=== PATIENT | male | born 1950 | race Caucasian/White ===

== ENCOUNTER → 2017-02-01 | Outpatient (CLI) | payer MEDICARE ==
[~2017-02-01] MED LIST: DOBUTamine DRIP for NUC MED 500 MG in DEXTROSE/WATER 1 250ML.BAG IV ONE
--- NOTE | 2017-02-01 14:22 | ECHOS ---
DATE OF SERVICE: 02/01/2017 AGE: 66Y SEX: M HT: 70" WT: 375 lbs. Protocol Rick: Others: Dobutamine Stress Echo Stage: 4 Dur. of Exercise: 11:45 *Heart Rate Blood Pressure *Rest: 61 Rest: 189/46 * *Max. Achieved: 127 Maximum BP: 172/55 85% PMHR: 129 100% PMHR: 152 *METS: - INDICATIONS: Shortness of breath. MEDICATIONS: Simvastatin, BP pills, aspirin, omeprazole. Patient was exercised for a total period of 12 minutes. A dobutamine echocardiographic study was performed. Patient was given dobutamine infusion according to the standard protocol. Peak heart rate of 127 was achieved. Maximum blood pressure of 172/55 mmHg of mercury was noted. Resting EKG shows sinus rhythm with normal KS interval and QRS duration and normal ST-T waves. No ST-segment depression suggestive of ischemia was noted. Patient did not complain of any chest pain during the test. The baseline echocardiographic images reveal a normal left ventricular chamber size with normal left ventricular systolic function. At the peak dose of dobutamine infusion, normal increase in the wall thickness and contractility is noted. FINAL IMPRESSION: 1. This dobutamine stress echocardiographic study is negative for stress-induced ischemia. 2. EKG portion of the stress is not suggestive of ischemia.
== END ==
LOC: RADNMMAIN 09:49
PROVIDERS: ATTEND Family Medicine
DX: R06.02 Shortness of breath (principal)
CPT/HCPCS: 93017; C8928; J1250; Q9957; 93350

== ENCOUNTER 2017-05-15 02:57 | Inpatient (IN) | payer MEDICARE ==
[2017-05-15] MEDS ORDERED: SODIUM CHLORIDE 0.9% 1,000 ML IV STA ×2 (03:31)
[2017-05-15] MEDS ORDERED: ONDANSETRON 4 MG/2 ML VIAL IVP STA (03:31)
[2017-05-15] MEDS ORDERED: MORPHINE SULFATE 4 MG/ML SYRINGE IV STA (03:31)
--- NOTE | 2017-05-15 03:45 | ED ---
Abdominal Pain HPI - General Chief Complaint: Abdominal Pain Stated Complaint: VOMITING Time Seen by Provider: 05/15/17 03:22 Source: patient, family Mode of arrival: ambulatory Limitations: no limitations - History of Present Illness Initial Comments: Complaining about nausea and vomiting, he threw up about 4 times in last 24 hours complaining about abdominal pain and no generalized weakness, sleepy, he is a diabetic and he hasn't checked his sugar for the last 4 days he said he been feeling too tired and sleepy. His complaining about abdominal pain abdominal pain is on the right upper quadrant area and right flank area though he has a history of gallbladder surgery. He is complaining about palpitations and no chest pain no shortness of breath no pleuritic chest pain as per minute, no frequency urgency dysuria no symptoms of TIA. - Related Data Home Medications Medication Instructions Recorded Confirmed Albuterol Inhaler [Ventolin Hfa 1 - 2 puff INHALATION Q6HR PRN 05/15/17 05/15/17 Inhaler] Atenolol [Tenormin] 50 mg PO DAILY 05/15/17 05/15/17 Furosemide [Lasix] 40 mg PO BID 05/15/17 05/15/17 Insulin Aspart [NovoLOG] 45 unit SQ TID 05/15/17 05/15/17 Insulin Glargine [Lantus] 95 unit SQ HS 05/15/17 05/15/17 Losartan [Cozaar] 100 mg PO DAILY 05/15/17 05/15/17 Naproxen [Naprosyn] 500 mg PO Q12HR 05/15/17 05/15/17 Omeprazole [PriLOSEC] 20 mg PO AC-BRKFST 05/15/17 05/15/17 Simvastatin [Zocor] 20 mg PO HS 05/15/17 05/15/17 cloNIDine HCL [Catapres] 0.2 mg PO BID 05/15/17 05/15/17 hydrALAZINE HCL [Apresoline] 100 mg PO TID 05/15/17 05/15/17 metFORMIN HCL [Glucophage] 850 mg PO TID 05/15/17 05/15/17 Allergies Allergy/AdvReac Type Severity Reaction Status Date / Time No Known Allergies Allergy Verified 05/15/17 03:04 Review of Systems ROS Statement: Those systems with pertinent positive or pertinent negative responses have been documented in the HPI. ROS Other: All systems not noted in ROS Statement are negative. Past Medical History Past Medical History: Asthma, Diabetes Mellitus, Hypertension History of Any Multi-Drug Resistant Organisms: None Reported Past Surgical History: Cholecystectomy Past Psychological History: No Psychological Hx Reported Smoking Status: Never smoker Past Alcohol Use History: Rare Past Drug Use History: None Reported General Exam - General Exam Comments Initial Comments: General: The patient is awake number his GCS is 15 but he looks tired and lethargic Skin: Skin is warm and dry and no rashes or lesions are noted. Eye: Pupils are equal, round and reactive to light, extra-ocular movements are intact; there is normal conjunctiva bilaterally. Ears, nose, mouth and throat: There are moist mucous membranes and no oral lesions. Neck: The neck is supple, there is no tenderness or JVD. Cardiovascular: There is a regular rate and rhythm but noticed tachycardia Respiratory: To auscultation bilateral, no wheezing , noticed decreased breath sounds bilaterally Gastrointestinal: Soft, non-distended, except his right upper quadrant area and the right flank area are tender Back: There is no tenderness to palpation in the midline. There is no obvious deformity. Musculoskeletal: Normal ROM, no tenderness, There is no pedal edema. There is no calf tenderness or swelling. No cords were appreciated. Neurological: CN II-XII intact, Cranial nerves III through XII are intact. There are no obvious motor or sensory deficits. Coordination appears grossly intact. Speech is normal. Psychiatric: Cooperative, appropriate mood & affect, normal judgment. Limitations: no limitations Course Vital Signs 05/15/17 03:00 Temperature 97 F L Pulse Rate 115 H Respiratory 20 Rate Blood Pressure 142/67 O2 Sat by Pulse 97 Oximetry EKG is a sinus tachycardia ventricular rate is 114 WA interval is 158 QRS duration is 98 QT/QTc is 328/465 review of this EKG shows sinus tachycardia, there is a hint of ST elevation in lead 3 but I have seen the somewhat elevation back in old EKG that was done on March [address] depression in aVL no ST elevation or any significant ST depression noticed in the other leads Medical Decision Making - Lab Data Result diagrams: 05/15/17 03:45 05/15/17 04:21 Lab Results 05/15/17 05/15/17 05/15/17 Range/Units 03:45 03:45 03:45 WBC 15.3 H (3.8-10.6) k/uL RBC 5.22 (4.30-5.90) m/uL Hgb 16.3 (13.0-17.5) gm/dL Hct 50.4 (39.0-53.0) % MCV 96.7 (80.0-100.0) fL MCH 31.3 (25.0-35.0) pg MCHC 32.3 (31.0-37.0) g/dL RDW 13.6 (11.5-15.5) % Plt Count 247 (150-450) k/uL Neutrophils % 84 % Lymphocytes % 9 % Monocytes % 6 % Eosinophils % 0 % Basophils % 0 % Neutrophils # 12.9 H (1.3-7.7) k/uL Lymphocytes # 1.3 (1.0-4.8) k/uL Monocytes # 0.9 (0-1.0) k/uL Eosinophils # 0.0 (0-0.7) k/uL Basophils # 0.0 (0-0.2) k/uL Sodium 134 L (137-145) mmol/L Potassium 6.6 H* (3.5-5.1) mmol/L Chloride 92 L (98-107) mmol/L Carbon Dioxide 17 L (22-30) mmol/L Anion Gap 25 mmol/L BUN 67 H (9-20) mg/dL Creatinine 1.80 H (0.66-1.25) mg/dL Est GFR (MDRD) Af Amer 46 (>60 ml/min/1.73 sqM) Est GFR (MDRD) Non-Af 38 (>60 ml/min/1.73 sqM) Glucose 1077 H* (74-99) mg/dL POC Glucose (mg/dL) (75-99) mg/dL POC Glu Business Investor ID Calcium 11.3 H (8.4-10.2) mg/dL Total Bilirubin 1.1 (0.2-1.3) mg/dL AST 30 (17-59) U/L ALT 57 (21-72) U/L Alkaline Phosphatase 159 H (38-126) U/L Troponin I 0.038 H* (0.000-0.034) ng/mL Total Protein 8.0 (6.3-8.2) g/dL Albumin 4.9 (3.5-5.0) g/dL Amylase 51 (30-110) U/L Lipase 199 (23-300) U/L 05/15/17 05/15/17 05/15/17 Range/Units 03:50 03:51 04:21 WBC (3.8-10.6) k/uL RBC (4.30-5.90) m/uL Hgb (13.0-17.5) gm/dL Hct (39.0-53.0) % MCV (80.0-100.0) fL MCH (25.0-35.0) pg MCHC (31.0-37.0) g/dL RDW (11.5-15.5) % Plt Count (150-450) k/uL Neutrophils % % Lymphocytes % % Monocytes % % Eosinophils % % Basophils % % Neutrophils # (1.3-7.7) k/uL Lymphocytes # (1.0-4.8) k/uL Monocytes # (0-1.0) k/uL Eosinophils # (0-0.7) k/uL Basophils # (0-0.2) k/uL Sodium (137-145) mmol/L Potassium 6.1 H (3.5-5.1) mmol/L Chloride (98-107) mmol/L Carbon Dioxide (22-30) mmol/L Anion Gap mmol/L BUN (9-20) mg/dL Creatinine (0.66-1.25) mg/dL Est GFR (MDRD) Af Amer (>60 ml/min/1.73 sqM) Est GFR (MDRD) Non-Af (>60 ml/min/1.73 sqM) Glucose (74-99) mg/dL POC Glucose (mg/dL) >600 H >600 H (75-99) mg/dL POC Glu Business Investor Gael Mccoy David Calcium (8.4-10.2) mg/dL Total Bilirubin (0.2-1.3) mg/dL AST (17-59) U/L ALT (21-72) U/L Alkaline Phosphatase (38-126) U/L Troponin I (0.000-0.034) ng/mL Total Protein (6.3-8.2) g/dL Albumin (3.5-5.0) g/dL Amylase (30-110) U/L Lipase (23-300) U/L Critical Care Time Total Critical Care Time: 45 Critical Care Time: Patients his sugar is greater than 1000, his white count is 15.3 F shift potassium is 6.6 CO2 is 17 this point KUB and chest x-ray looks unremarkable patient has no significant ketoacidosis he also has elevated troponin and repeat potassium was 6.1) patient also has a IV and IVwall insulin bolus and had the infusion started that's why he did not crack the potassium IV insulin were polished the potassium intracellular considering tachycardia as well as a leukocytosis also suspicious of sepsis blood cultures and urine cultures were done patient be started on empiric Biotics patient had dull 2 L of IV bolus and then will follow the DKA protocol. Speak with the Dr. Wilson and now since he TO ICU AND HE'LL BE ADMITTED UNDER shantanu Castellon Dr. is covering Dr. Cramer Disposition Clinical Impression: Tachycardia, Abdominal pain, Nausea and vomiting, Hyperkalemia, Elevated troponin, Sepsis Disposition: ADMITTED IP TO THIS HOSP Condition: Fair Referrals: Dwayne Castellano MD [Primary Care Provider] - 1-2 days
[2017-05-15 03:54] LABS: Basophils % (A) 0 %; CHCM 32.2; Eosinophils % (A) 0 %; HCT 50.4 % (39.0-53.0); HDW 2.63; HGB 16.3 gm/dL (13.0-17.5); Luc # (Auto) 0.16; Luc % (Auto) 1; Lymphocytes # (A) 1.3 k/uL (1.0-4.8); Lymphocytes % (A) 9 %; MCH 31.3 pg (25.0-35.0); MCHC 32.3 g/dL (31.0-37.0); MCV 96.7 fL (80.0-100.0); Mean Platelet Volume 9.3; Monocytes # (A) 0.9 k/uL (0-1.0); Monocytes % (A) 6 %; Neutrophils # (A) 12.9 k/uL (1.3-7.7); Neutrophils % (A) 84 %; RBC 5.22 m/uL (4.30-5.90); RDW 13.6 % (11.5-15.5); WBC 15.3 k/uL (3.8-10.6); WBC (Perox) 14.53
[2017-05-15 03:55] LABS: Glucose,Whole Blood >600 mg/dL (75-99)
[2017-05-15 03:55] LABS: Glucose,Whole Blood >600 mg/dL (75-99)
[2017-05-15 04:03] LABS: Calcium 11.3 mg/dL (8.4-10.2); Total Bilirubin 1.1 mg/dL (0.2-1.3)
[2017-05-15 04:14] LABS: Potassium 6.6 mmol/L (3.5-5.1)
[2017-05-15] MEDS ORDERED: SODIUM CHLORIDE 0.9% 1,000 ML IV ONE (04:30)
[2017-05-15] MEDS ORDERED: INSULIN REGULAR BOLUS (FROM DRIP BAG) IV ONE (04:33)
--- NOTE | 2017-05-15 04:38 | XR ---
EXAM: KUB, 3 views INDICATION: Abdominal pain. COMPARISON: None. FINDINGS: Single frontal view of the abdomen demonstrates a nonobstructive, nonspecific bowel gas pattern. Cholecystectomy clips are present. No evidence of organomegaly, abnormal calcifications or obvious soft tissue masses. The osseous structures are intact. IMPRESSION: Unremarkable KUB.
--- NOTE | 2017-05-15 04:39 | XR ---
EXAM: Chest PA and lateral views INDICATION: Pain. COMPARISON: None. FINDINGS: PA and lateral views of the chest are obtained. The cardiomediastinal silhouette is within normal limits. Lungs are clear. No pleural effusions. Bony elements are within normal limits. IMPRESSION: No acute cardiopulmonary disease.
[2017-05-15] MEDS ORDERED: cefTRIAXone 2,000 MG in SODIUM CHLORIDE 0.9% 100 ML IVPB STA (04:56)
[2017-05-15 05:00] LABS: Appearance,Urine Clear (Clear); Bilirubin,Urine Negative (Negative); Glucose,Urine (UA) 4+ (Negative); Ketones,Urine 1+ (Negative); Leukocyte Esterase,Urine Negative (Negative); Nitrite,Urine Negative (Negative); Protein,Urine Trace (Negative); UA Billing (MACRO vs. MICRO) CHEM; Urobilinogen,Urine <2.0 mg/dL (<2.0)
[2017-05-15] MEDS: INSULIN REGULAR 100 UNIT in SODIUM CHLORIDE 0.9% 100 ML IV SCH ×3 (05:01→15:53)
[2017-05-15] MEDS ORDERED: ACETAMINOPHEN TAB 325 MG TAB PO PRN ×2 (05:17→07:16)
[2017-05-15] MEDS ORDERED: NALOXONE 0.4 MG/ML 1 ML VIAL IV PRN (05:17)
[2017-05-15] MEDS ORDERED: MORPHINE SULFATE 4 MG/ML SYRINGE IV PRN (05:17)
[2017-05-15] MEDS ORDERED: ALBUTEROL NEBULIZED 2.5 MG/3 ML INHALATION PRN (05:23)
[2017-05-15] MEDS ORDERED: D5-0.45% NACL WITH KCL 20MEQ/L 1,000 ML IV SCH (05:30)
[2017-05-15] MEDS ORDERED: INSULIN REGULAR 100 UNIT in SODIUM CHLORIDE 0.9% 100 ML IV SCH (05:30)
[2017-05-15 06:38] LABS: Glucose,Whole Blood >600 mg/dL (75-99)
--- NOTE | 2017-05-15 06:49 | XR ---
EXAM: Single view of the chest INDICATION: Central line placement COMPARISON: 05/15/2017 at 0414 hrs. FINDINGS: Single frontal view demonstrates a stable cardiomediastinal silhouette. Right IJ central line is in place with tip projecting over the right atrium. No pneumothorax. Otherwise, stable appearance of the chest. Old, healed right-sided rib fractures are noted. The visualized osseous structures are otherwise unremarkable. IMPRESSION: 1. Interval placement of a right IJ central venous catheter with tip projecting over the right atrium. No pneumothorax. 2. Otherwise, stable appearance of the chest
[2017-05-15] MEDS: SODIUM CHLORIDE 0.9% 1,000 ML IV SCH ×4 (07:07→20:52)
[2017-05-15] MEDS ORDERED: HEPARIN SODIUM,PORCINE 5,000 UNIT/ML 1 ML VIAL IV ONE (07:15)
[2017-05-15] MEDS ORDERED: NITROGLYCERIN SL TABS 0.4 MG TAB SUBLINGUAL PRN (07:16)
[2017-05-15] MEDS ORDERED: MORPHINE SULFATE 2 MG/ML SYRINGE IVP PRN (07:16)
[2017-05-15 07:35] LABS: Glucose,Whole Blood >600 mg/dL (75-99)
[2017-05-15] MEDS: HEPARIN SODIUM,PORCINE/D5W PMX 25,000 UNIT in DEXTROSE/WATER 1 500ML.BAG IV SCH (08:03)
[2017-05-15 08:32] LABS: Glucose,Whole Blood 540 mg/dL (75-99)
[2017-05-15 09:35] LABS: Glucose,Whole Blood 552 mg/dL (75-99)
--- NOTE | 2017-05-15 10:32 | CT ---
EXAMINATION TYPE: CT abdomen pelvis wo con DATE OF EXAM: 05/15/2017 COMPARISON: NONE HISTORY: generalized pain, DKA CT DLP: 3238.2 mGycm Examination of the solid and hollow viscera is limited given the lack of contrast. FINDINGS: LUNG BASES: No evidence for nodule. No evidence for infiltrate. LIVER/GB: Cholecystectomy clips are in place. No space-occupying hepatic lesion. PANCREAS: No pancreatic mass identified. No inflammatory process seen. SPLEEN: No evidence for splenomegaly. No intrasplenic lesions seen. ADRENALS: No adrenal nodules identified. No evidence for thickening. KIDNEYS: No evidence for renal mass. No nephrolithiasis. No hydronephrosis. BOWEL: Appendix has a normal appearance. No evidence of bowel obstruction. No inflammatory process. S cattered sigmoid diverticulosis without diverticulitis. Lymph nodes: No evidence for adenopathy greater than 1 cm. Abdominal aorta: Atheromatous changes seen. No evidence for aneurysm. Genital organs: No significant abnormality. Other: Small fat-containing umbilical hernia. Multilevel degenerative disc disease. IMPRESSION: 1. NO ACUTE INTRA-ABDOMINAL PROCESS IDENTIFIED AT THIS TIME.
[2017-05-15 10:42] LABS: Phosphorous 4.3 mg/dL (2.5-4.5); Potassium 4.9 mmol/L (3.5-5.1)
[2017-05-15 10:45] LABS: Glucose,Whole Blood 504 mg/dL (75-99)
[2017-05-15] MEDS: ESOMEPRAZOLE 20 MG in SODIUM CHLORIDE 0.9% 50 ML IVPB SCH (10:54)
[2017-05-15] MEDS: LOSARTAN 50 MG TAB PO SCH (10:57)
[2017-05-15] MEDS: hydrALAZINE HCL 50 MG TAB PO SCH ×4 (10:57→22:53)
[2017-05-15] MEDS: cloNIDine HCL 0.2 MG TAB PO SCH ×4 (10:58→23:16)
[2017-05-15] MEDS: FUROSEMIDE 40 MG TAB PO SCH ×2 (10:58→22:53)
[2017-05-15] MEDS: ATENOLOL 50 MG TAB PO SCH (10:58)
[2017-05-15 11:04] LABS: Creatine Kinase MB 2.9 ng/mL (0.0-2.4); Troponin I 0.051 ng/mL (0.000-0.034)
--- NOTE | 2017-05-15 11:19 | P.CON ---
Consult Note - . Consult date: 05/15/17 Assessment/Plan:: Live* Brigette Moreno [address], [place] [address] Abdominal Pain Patient Name: Maulik Ascencio Date of : 1950 Patient Status: Inpatient Attending Provider: Dwayne Castellano Date: 05/15/17 9-30 a.m. Abdominal Pain HPI, critical care consultation note - General Chief Complaint: Abdominal Pain started 2-3 days ago Stated Complaint: VOMITING Time Seen by Provider: 05/15/17 03:22 Source: patient, family, ER chart - History of Present Illness Initial Comments: Patient was doing fairly well until about 3 days ago started having some nausea and not feeling well has been having intermittent abdominal pain as well as he was not eating much he decided not to take his insulin due to persistent problem with nausea and throwing up and not feeling well intermittent abdominal pain and came into the hospital for further evaluation and intervention and treatment Complaining about nausea and vomiting, he threw up about 4 times in last 24 hours complaining about abdominal pain and no generalized weakness, sleepy, he is a diabetic and he hasn't checked his sugar for the last 4 days he said he been feeling too tired and sleepy. His complaining about abdominal pain abdominal pain is on the right upper quadrant area and right flank area though he has a history of gallbladder surgery. He is complaining about palpitations and no chest pain no shortness of breath no pleuritic chest pain as per minute, no frequency urgency dysuria no symptoms of TIA. He denies any nausea vomiting or diarrhea denies any gastroenteritis like symptoms denies similar episode in the past - Related Data Home Medications Medication Instructions Recorded Confirmed Albuterol Inhaler [Ventolin Hfa 1 - 2 puff INHALATION Q6HR PRN 05/15/17 05/15/17 Inhaler] Atenolol [Tenormin] 50 mg PO DAILY 05/15/17 05/15/17 Furosemide [Lasix] 40 mg PO BID 05/15/17 05/15/17 Insulin Aspart [NovoLOG] 45 unit SQ TID 05/15/17 05/15/17 Insulin Glargine [Lantus] 95 unit SQ HS 05/15/17 05/15/17 Losartan [Cozaar] 100 mg PO DAILY 05/15/17 05/15/17 Naproxen [Naprosyn] 500 mg PO Q12HR 05/15/17 05/15/17 Omeprazole [PriLOSEC] 20 mg PO AC-BRKFST 05/15/17 05/15/17 Simvastatin [Zocor] 20 mg PO HS 05/15/17 05/15/17 cloNIDine HCL [Catapres] 0.2 mg PO BID 05/15/17 05/15/17 hydrALAZINE HCL [Apresoline] 100 mg PO TID 05/15/17 05/15/17 metFORMIN HCL [Glucophage] 850 mg PO TID 05/15/17 05/15/17 Allergies Allergy/AdvReac Type Severity Reaction Status Date / Time No Known Allergies Allergy Verified 05/15/17 03:04 Review of Systems ROS Statement: Those systems with pertinent positive or pertinent negative responses have been documented in the HPI. ROS Other: All systems not noted in ROS Statement are negative. Past Medical History Past Medical History: Asthma, Diabetes Mellitus, Hypertension History of Any Multi-Drug Resistant Organisms: None Reported Past Surgical History: Cholecystectomy Past Psychological History: No Psychological Hx Reported Smoking Status: Never smoker Past Alcohol Use History: Rare Past Drug Use History: None Reported General Exam - General Exam Comments Initial Comments: General: The patient is awake number his GCS is 15 but he looks tired and lethargic Skin: Skin is warm and dry and no rashes or lesions are noted. Eye: Pupils are equal, round and reactive to light, extra-ocular movements are intact; there is normal conjunctiva bilaterally. Ears, nose, mouth and throat: There are moist mucous membranes and no oral lesions. Neck: The neck is supple, there is no tenderness or JVD, has a central line/ triple-lumen catheter into the right IJ. Cardiovascular: There is a regular rate and rhythm but noticed tachycardia Respiratory: To auscultation bilateral, no wheezing , noticed decreased breath sounds bilaterally Gastrointestinal: Soft, overall distended related to truncal obesity, tenderness noted previously by ER physician are not appreciated in this exam Back: There is no tenderness to palpation in the midline. There is no obvious deformity. Musculoskeletal: Normal ROM, no tenderness, There is no pedal edema. There is no calf tenderness or swelling. No cords were appreciated. Neurological: CN II-XII intact, Cranial nerves III through XII are intact. There are no obvious motor or sensory deficits. Coordination appears grossly intact. Speech is normal. Psychiatric: Cooperative, appropriate mood & affect, normal judgment. Limitations: no limitations Course Vital Signs 05/15/17 03:00 Temperature 97 F L Pulse Rate 115 H Respiratory 20 Rate Blood Pressure 142/67 O2 Sat by Pulse 97 Oximetry EKG is a sinus tachycardia ventricular rate is 114 NM interval is 158 QRS duration is 98 QT/QTc is 328/465 review of this EKG shows sinus tachycardia, there is a hint of ST elevation in lead 3 but I have seen the somewhat elevation back in old EKG that was done on March [address] depression in aVL no ST elevation or any significant ST depression noticed in the other leads Medical Decision Making - Lab Data Result diagrams: 05/15/17 03:45 05/15/17 04:21 Lab Results 05/15/17 05/15/17 05/15/17 Range/Units 03:45 03:45 03:45 WBC 15.3 H (3.8-10.6) k/uL RBC 5.22 (4.30-5.90) m/uL Hgb 16.3 (13.0-17.5) gm/dL Hct 50.4 (39.0-53.0) % MCV 96.7 (80.0-100.0) fL MCH 31.3 (25.0-35.0) pg MCHC 32.3 (31.0-37.0) g/dL RDW 13.6 (11.5-15.5) % Plt Count 247 (150-450) k/uL Neutrophils % 84 % Lymphocytes % 9 % Monocytes % 6 % Eosinophils % 0 % Basophils % 0 % Neutrophils # 12.9 H (1.3-7.7) k/uL Lymphocytes # 1.3 (1.0-4.8) k/uL Monocytes # 0.9 (0-1.0) k/uL Eosinophils # 0.0 (0-0.7) k/uL Basophils # 0.0 (0-0.2) k/uL Sodium 134 L (137-145) mmol/L Potassium 6.6 H* (3.5-5.1) mmol/L Chloride 92 L (98-107) mmol/L Carbon Dioxide 17 L (22-30) mmol/L Anion Gap 25 mmol/L BUN 67 H (9-20) mg/dL Creatinine 1.80 H (0.66-1.25) mg/dL Est GFR (MDRD) Af Amer 46 (>60 ml/min/1.73 sqM) Est GFR (MDRD) Non-Af 38 (>60 ml/min/1.73 sqM) Glucose 1077 H* (74-99) mg/dL POC Glucose (mg/dL) (75-99) mg/dL POC Glu Second Facing Baster ID Calcium 11.3 H (8.4-10.2) mg/dL Total Bilirubin 1.1 (0.2-1.3) mg/dL AST 30 (17-59) U/L ALT 57 (21-72) U/L Alkaline Phosphatase 159 H (38-126) U/L Troponin I 0.038 H* (0.000-0.034) ng/mL Total Protein 8.0 (6.3-8.2) g/dL Albumin 4.9 (3.5-5.0) g/dL Amylase 51 (30-110) U/L Lipase 199 (23-300) U/L 05/15/17 05/15/17 05/15/17 Range/Units 03:50 03:51 04:21 WBC (3.8-10.6) k/uL RBC (4.30-5.90) m/uL Hgb (13.0-17.5) gm/dL Hct (39.0-53.0) % MCV (80.0-100.0) fL MCH (25.0-35.0) pg MCHC (31.0-37.0) g/dL RDW (11.5-15.5) % Plt Count (150-450) k/uL Neutrophils % % Lymphocytes % % Monocytes % % Eosinophils % % Basophils % % Neutrophils # (1.3-7.7) k/uL Lymphocytes # (1.0-4.8) k/uL Monocytes # (0-1.0) k/uL Eosinophils # (0-0.7) k/uL Basophils # (0-0.2) k/uL Sodium (137-145) mmol/L Potassium 6.1 H (3.5-5.1) mmol/L Chloride (98-107) mmol/L Carbon Dioxide (22-30) mmol/L Anion Gap mmol/L BUN (9-20) mg/dL Creatinine (0.66-1.25) mg/dL Est GFR (MDRD) Af Amer (>60 ml/min/1.73 sqM) Est GFR (MDRD) Non-Af (>60 ml/min/1.73 sqM) Glucose (74-99) mg/dL POC Glucose (mg/dL) >600 H >600 H (75-99) mg/dL POC Glu Second Facing Baster Gael Mccoy David Calcium (8.4-10.2) mg/dL Total Bilirubin (0.2-1.3) mg/dL AST (17-59) U/L ALT (21-72) U/L Alkaline Phosphatase (38-126) U/L Troponin I (0.000-0.034) ng/mL Total Protein (6.3-8.2) g/dL Albumin (3.5-5.0) g/dL Amylase (30-110) U/L Lipase (23-300) U/L Critical Care Time Total Critical Care Time: 40 Patients his sugar is greater than 1000, his white count is 15.3 F shift potassium is 6.6 CO2 is 17 this point KUB and chest x-ray looks unremarkable patient has no significant ketoacidosis he also has elevated troponin and repeat potassium was 6.1) patient also has a IV and IVwall insulin bolus and had the infusion started that's why he did not crack the potassium IV insulin were polished the potassium intracellular considering tachycardia as well as a leukocytosis also suspicious of sepsis blood cultures and urine cultures were done patient be started on empiric Biotics patient had dull 2 L of IV bolus and then will follow the DKA protocol. Impression/assessment and plan #1 severe diabetic ketoacidosis #2 electrolyte imbalance with hyponatremia hyperkalemia and hypercalcemia #3 severe profound metabolic acidosis related to above #4 early SIRS versus sepsis source not clear #5 abdominal pain and discomfort discomfort likely related to diabetic ketoacidosis #6 acute renal failure, stage III #7 elevated troponin, non-ST segment elevated SC is less likely but however the rise may likely related to acute renal failure Patient is being aggressively fluid resuscitated with 200 mL an hour normal saline has been on 20 units of insulin drip as well his latest blood test has been drawn and results are pending last check sugar was still more than 550, will do lemus culture including urine and blood, chest x-ray done late last night as well as earlier this morning reviewed along with KUB and abdominal CT scan, patient has received a dose of IV Rocephin we'll monitor and observe repeat labs tomorrow will hold on starting any antibiotics and her until more data is available, follow-up and repeat laboratory data, patient to be kept on DVT and peptic ulcer disease prophylaxis patient is being admitted into the ICU will follow closely.
[2017-05-15 11:38] LABS: Glucose,Whole Blood 397 mg/dL (75-99)
[2017-05-15 12:52] LABS: Glucose,Whole Blood 252 mg/dL (75-99)
[2017-05-15] MEDS: D5-0.45% NACL WITH KCL 20MEQ/L 1,000 ML IV SCH ×3 (13:47→19:49)
[2017-05-15 14:04] LABS: Glucose,Whole Blood 249 mg/dL (75-99)
--- NOTE | 2017-05-15 14:49 | HP ---
Maulik Ascencio is a 66-year-old male who presented to the ED at [facility] with nausea, vomiting. He subsequently had diarrhea as well. He stopped taking his diabetic medications about two days prior to coming in. When he came into the ED he was found to have an elevated blood sugar of over 1000. He subsequently is being admitted for further evaluation and management. PAST MEDICAL HISTORY: Positive for hypertension, history of diabetes mellitus type 2, history of asthma, history of cholecystectomy. Family history is noncontributory. SOCIAL HISTORY: Patient is a nonsmoker. Does not drink alcohol excessively. He has no known drug allergies. His medications prior to admission include Metformin, hydralazine, clonidine, simvastatin, omeprazole, albuterol inhaler, Tenormin, Lasix, NovoLog, Lantus, Cozaar and Naprosyn. Review of systems is positive for obesity. On physical examination, blood pressure 156/60, respiratory rate 18, pulse rate of 110, temperature 97.4 degrees Fahrenheit. O2 sat on 2-L nasal cannula is 97% . HEENT reveals pupils that are equal. Mucous membranes are dry. Mallampati is III. Cardiovascular system reveals an S1, S2. No S3, no S4, no murmurs. Abdomen is soft. There is trace to 1+ pedal edema. White count is 15.3, hemoglobin 16.3, sodium 134, potassium 6.6, chloride 92, bicarb 17, BUN 67, creatinine 1.8, glucose 1077. Lactic acid was 3.6. Calcium 11.3, AST 30, ALT 57, alk phos 159, troponin 0.038. IMPRESSION: 1. Uncontrolled diabetes with hyperosmolar state. 2. Diabetes with ketoacidosis. 3. Abdominal pain possibly secondary to acute gastroenteritis. 4. Acute renal failure. Continue IV fluids, insulin. The patient has received 1 dose of Rocephin. Will further decide if he needs any further antibiotics as he is symptomatically doing with fluid resuscitation and insulin. Depending on how he does further changes to his care will be made. WILVERD
[2017-05-15 15:03] LABS: Glucose,Whole Blood 213 mg/dL (75-99)
[2017-05-15 15:15] LABS: Phosphorous 4.1 mg/dL (2.5-4.5); Potassium 4.8 mmol/L (3.5-5.1)
[2017-05-15 15:41] LABS: Creatine Kinase MB 2.9 ng/mL (0.0-2.4); Troponin I 0.084 ng/mL (0.000-0.034)
[2017-05-15 15:53] LABS: Glucose,Whole Blood 133 mg/dL (75-99)
[2017-05-15 17:01] LABS: Glucose,Whole Blood 118 mg/dL (75-99)
[2017-05-15 18:16] LABS: Glucose,Whole Blood 181 mg/dL (75-99)
[2017-05-15 19:25] LABS: Potassium 5.7 mmol/L (3.5-5.1)
[2017-05-15 20:13] LABS: Glucose,Whole Blood 226 mg/dL (75-99)
[2017-05-15 21:11] LABS: Glucose,Whole Blood 266 mg/dL (75-99)
[2017-05-15 22:07] LABS: Glucose,Whole Blood 256 mg/dL (75-99)
[2017-05-15] MEDS: INSULIN GLARGINE 100 UNIT/ML 10 ML VIAL SQ SCH (22:53)
[2017-05-16 00:56] LABS: Potassium 5.5 mmol/L (3.5-5.1)
[2017-05-16] MEDS ORDERED: HEPARIN SODIUM,PORCINE 5,000 UNIT/ML 1 ML VIAL IV PRN (01:01)
[2017-05-16] MEDS ORDERED: INSULIN NPH 300 UNIT/3 ML VIAL SQ ONE (02:16)
[2017-05-16] MEDS: D5-0.45% NACL WITH KCL 20MEQ/L 1,000 ML IV SCH (02:22)
[2017-05-16 02:23] LABS: Glucose,Whole Blood 384 mg/dL (75-99)
[2017-05-16 04:56] LABS: Glucose,Whole Blood 429 mg/dL (75-99)
[2017-05-16 06:01] LABS: Glucose,Whole Blood 431 mg/dL (75-99)
[2017-05-16] MEDS: INSULIN LISPRO (humaLOG) 300 UNIT/3 ML VIAL SQ SCH ×7 (06:24→20:45)
[2017-05-16 06:30] LABS: Glucose,Whole Blood 439 mg/dL (75-99)
[2017-05-16 06:59] LABS: Basophils % (A) 0 %; CH 30.7; CHCM 32.3; Eosinophils # (A) 0.1 k/uL (0-0.7); Eosinophils % (A) 1 %; HCT 40.1 % (39.0-53.0); HDW 2.54; Luc # (Auto) 0.19; Luc % (Auto) 1; Lymphocytes # (A) 1.7 k/uL (1.0-4.8); Lymphocytes % (A) 12 %; MCH 30.9 pg (25.0-35.0); MCHC 32.3 g/dL (31.0-37.0); MCV 95.7 fL (80.0-100.0); Mean Platelet Volume 9.6; Monocytes % (A) 7 %; Neutrophils # (A) 11.9 k/uL (1.3-7.7); Neutrophils % (A) 80 %; RBC 4.19 m/uL (4.30-5.90); RDW 12.9 % (11.5-15.5); WBC 14.9 k/uL (3.8-10.6); WBC (Perox) 14.91
[2017-05-16 07:17] LABS: HGB 12.9 gm/dL (13.0-17.5)
--- NOTE | 2017-05-16 07:29 | XR ---
EXAMINATION TYPE: XR chest 1V portable DATE OF EXAM: 05/16/2017 HISTORY: pneumonia. REFERENCE: Previous study dated 05/15/2017. FINDINGS: The patient's right internal jugular catheter remains in place, unchanged in appearance. The heart is enlarged. There is mild vascular congestion without afsaneh edema. No definite pleural flu id is seen. IMPRESSION: 1. CARDIOMEGALY. 2. VASCULAR CONGESTION.
[2017-05-16 07:49] LABS: Calcium 9.3 mg/dL (8.4-10.2); Phosphorous 3.9 mg/dL (2.5-4.5); Potassium 5.6 mmol/L (3.5-5.1); Total Bilirubin 0.6 mg/dL (0.2-1.3); Total Protein 5.8 g/dL (6.3-8.2)
[2017-05-16] MEDS: HEPARIN SODIUM,PORCINE/D5W PMX 25,000 UNIT in DEXTROSE/WATER 1 500ML.BAG IV SCH ×2 (09:12→18:12)
[2017-05-16 10:00] LABS: Hemoglobin A1C 11.2 % (4.2-6.1)
--- NOTE | 2017-05-16 11:00 | P.CRDCN ---
History of Present Illness Consult date: 05/16/17 Requesting physician: Dwayne Castellano Reason for Consult (text): Abnormal troponins Chief complaint: Nausea vomiting and weakness History of present illness: This is a pleasant 66-year-old gentleman with history of diabetes, hypertension, asthma, morbid obesity, who presents to the hospital with symptoms of abdominal discomfort, vomiting and weakness for the past 3 days or so. Patient states he has not been checking his blood sugars at home because he has been feeling so unwell. He denies any chest discomfort, he does get occasional exertional shortness of breath. She did have a dobutamine echocardiographic study performed in January of this year which was negative for any stress-induced ischemia. EKG on admission showed a sinus tachycardia with nonspecific ST-T wave changes. KUB x-ray unremarkable. Chest x-ray did not reveal any acute cardiopulmonary process. CT of the abdomen and pelvis did not reveal any acute intra-abdominal process. I pressure on admission 142/60 with a heart rate of 118, 97% on room air. White blood cell count on admission 15.3 , 14.9 this morning. Hemoglobin on admission 16.3, 12.9 this morning. Admission labs, Glucose 1077, potassium 6.6, BUN 67, creatinine 1.8, troponins 0.038, 0.051, 0.084, this morning's labs, potassium 5.5, BUN 78, creatinine 2.6. At the time of my examination this morning, patient denies any chest discomfort, nausea has resolved, mild abdominal discomfort. Past Medical History Past Medical History: Asthma, Diabetes Mellitus, Hypertension History of Any Multi-Drug Resistant Organisms: None Reported Past Surgical History: Cholecystectomy Past Psychological History: No Psychological Hx Reported Smoking Status: Never smoker Past Alcohol Use History: Rare Past Drug Use History: None Reported Medications and Allergies Home Medications Medication Instructions Recorded Confirmed Type Albuterol Sulfate [Proventil Hfa] 2 puff INHALATION RT-QID PRN 05/15/17 History Atenolol [Tenormin] 50 mg PO DAILY 05/15/17 05/15/17 History Furosemide [Lasix] 40 mg PO BID 05/15/17 05/15/17 History Insulin Aspart [NovoLOG] 45 unit SQ BID 05/15/17 05/15/17 History Insulin Glargine [Lantus] 95 unit SQ HS 05/15/17 05/15/17 History Losartan Potassium 100 mg PO DAILY 05/15/17 05/15/17 History Naproxen [Naprosyn] 500 mg PO Q12HR 05/15/17 05/15/17 History Omeprazole [PriLOSEC] 20 mg PO AC-BRKFST 05/15/17 05/15/17 History Simvastatin [Zocor] 20 mg PO HS 05/15/17 05/15/17 History cloNIDine HCL [Catapres] 0.2 mg PO BID 05/15/17 05/15/17 History hydrALAZINE HCL [Apresoline] 100 mg PO TID 05/15/17 05/15/17 History metFORMIN HCL [Glucophage] 850 mg PO TID 05/15/17 05/15/17 History Allergies Allergy/AdvReac Type Severity Reaction Status Date / Time No Known Allergies Allergy Verified 05/15/17 10:54 Physical Exam Vitals: Vital Signs Temp Pulse Pulse Resp BP BP Pulse Ox 05/16/17 08:00 97.8 F 55 L 16 124/66 96 05/16/17 04:00 96.7 F L 62 16 108/49 95 05/16/17 00:00 97.2 F L 61 16 153/69 97 05/15/17 20:00 96.8 F L 63 16 121/64 97 05/15/17 16:00 97.7 F 67 16 100/53 96 05/15/17 11:35 97.4 F L 05/15/17 11:06 110 H 18 156/68 97 Intake and Output 05/15/17 05/16/17 05/16/17 22:59 06:59 14:59 Intake Total 2282.363 632.203 111.818 Output Total 200 600 Balance 2082.363 32.203 111.818 Intake: IV 1476 480 0.9% NS 160 D5 0.45 ns W/ 20 MEQ K @ 1200 150 mL/hr Heparin Sodium,Porcine/ 240 320 D5w Pmx 25,000 unit In Dextrose/Water 1 500ml. bag @ 5.95 UNITS/KG/HR 19 .97 mls/hr IV .Q24H [facility] Rx#:[id number] Insulin Regular 100 unit 36 In Sodium Chloride 0.9% 100 ml @ 0.1 UNITS/KG/HR 16.95 mls/hr IV .Q5H58M [facility] Rx#:[id number] Intake, IV Titration 386.363 152.203 111.818 Amount Heparin Sodium,Porcine/ 235.979 152.203 111.818 D5w Pmx 25,000 unit In Dextrose/Water 1 500ml. bag @ 5.95 UNITS/KG/HR 19 .97 mls/hr IV .Q24H [facility] Rx#:[id number] Insulin Regular 100 unit 150.384 In Sodium Chloride 0.9% 100 ml @ 0.1 UNITS/KG/HR 16.95 mls/hr IV .Q5H58M [facility] Rx#:[id number] Oral 420 Output: Urine 200 600 Other: Voiding Method Urinal Urinal Weight 160.3 kg Patient Weight 05/17/17 06:59 Weight 160.3 kg PHYSICAL EXAMINATION: HEENT: Head is atraumatic, normocephalic. Pupils equal, round. Neck is supple. There is no elevated jugular venous pressure. HEART EXAMINATION: Heart S1, S2 normal. No murmur or gallop heard. CHEST EXAMINATION: Lungs are clear to auscultation and precussion. No chest wall tenderness is noted on palpation or with deep breathing. ABDOMEN: Soft, obese, mild generalized tenderness . Bowel sounds are heard. No organomegaly noted. EXTREMITIES: 2+ peripheral pulses with trace evidence of peripheral edema and no calf tenderness noted. NEUROLOGIC patient is awake, alert and oriented -3. . Results 05/16/17 06:41 05/16/17 06:41 Cardiac Enzymes 05/15/17 05/15/17 05/16/17 Range/Units 09:14 14:46 06:41 AST 24 (17-59) U/L CK-MB (CK-2) 2.9 H* 2.9 H* (0.0-2.4) ng/mL Troponin I 0.051 H* 0.084 H* (0.000-0.034) ng/mL Coagulation 05/15/17 05/16/17 05/16/17 Range/Units 14:46 00:11 06:41 APTT 26.9 38.2 H 114.6 H* (22.0-30.0) sec Lipids 05/16/17 Range/Units 06:41 Triglycerides 141 (<150) mg/dL Cholesterol 144 (<200) mg/dL HDL Cholesterol 38 L (40-60) mg/dL CBC 05/16/17 Range/Units 06:41 WBC 14.9 H (3.8-10.6) k/uL RBC 4.19 L (4.30-5.90) m/uL Hgb 12.9 L D (13.0-17.5) gm/dL Hct 40.1 (39.0-53.0) % Plt Count 160 (150-450) k/uL Comprehensive Metabolic Panel 05/15/17 05/15/17 05/15/17 Range/Units 09:14 14:46 18:53 Sodium 144 146 H 140 (137-145) mmol/L Potassium 4.9 4.8 5.7 H (3.5-5.1) mmol/L Chloride 107 112 H 110 H (98-107) mmol/L Carbon Dioxide 19 L 20 L 21 L (22-30) mmol/L BUN 66 H 69 H (9-20) mg/dL Creatinine 1.69 H 2.08 H (0.66-1.25) mg/dL Glucose 585 H* 227 H (74-99) mg/dL Calcium (8.4-10.2) mg/dL AST (17-59) U/L ALT (21-72) U/L Alkaline Phosphatase (38-126) U/L Total Protein (6.3-8.2) g/dL Albumin (3.5-5.0) g/dL 05/16/17 05/16/17 Range/Units 00:11 06:41 Sodium 139 137 (137-145) mmol/L Potassium 5.5 H 5.6 H (3.5-5.1) mmol/L Chloride 106 105 (98-107) mmol/L Carbon Dioxide 22 22 (22-30) mmol/L BUN 78 H (9-20) mg/dL Creatinine 2.67 H (0.66-1.25) mg/dL Glucose 464 H* (74-99) mg/dL Calcium 9.3 (8.4-10.2) mg/dL AST 24 (17-59) U/L ALT 41 (21-72) U/L Alkaline Phosphatase 90 (38-126) U/L Total Protein 5.8 L (6.3-8.2) g/dL Albumin 3.1 L (3.5-5.0) g/dL Current Medications Generic Name Dose Route Start Last Admin Trade Name Freq PRN Reason Stop Dose Admin Acetaminophen 650 mg 05/15/17 05:17 Tylenol Tab PO Q4HR PRN Fever and/or Mild Pain Acetaminophen 650 mg 05/15/17 07:16 Tylenol Tab PO Q4HR PRN Mild Pain Albuterol Sulfate 2.5 mg 05/15/17 05:23 Ventolin Nebulized INHALATION Q6HR PRN Shortness Of Breath Atenolol 50 mg 05/15/17 09:00 05/15/17 10:58 Tenormin PO 50 mg DAILY SAM Administration Clonidine 0.2 mg 05/15/17 09:00 05/15/17 23:16 Catapres PO 0.2 mg BID SAM Administration Furosemide 40 mg 05/15/17 09:00 05/15/17 22:53 Lasix PO 40 mg BID SAM Administration Heparin Sodium (Porcine) 0 unit 05/16/17 01:01 05/16/17 01:09 Heparin IV 4,000 unit PER PROTOCOL PRN Administration Low PTT Protocol Hydralazine HCl 100 mg 05/15/17 09:00 05/15/17 22:53 Apresoline PO 100 mg TID [facility] Administration Esomeprazole Magnesium 20 mg/ 50 mls @ 100 mls/hr 05/15/17 09:00 05/15/17 10: 54 Sodium Chloride IVPB 100 mls/hr DAILY SAM Administration Potassium Chloride/Dextrose/Sod Cl 1,000 mls @ 50 mls/hr 05/15/17 06:00 05/16 02:22 D5%-1/2ns-Kcl 20 Meq/L Iv Solution IV 50 mls/hr .Q20H [facility] Administration Heparin Sodium/Dextrose 25,000 500 mls @ 19.97 mls/hr 05/15/17 07:30 09:12 unit/ IV Solution IV 9.95 units/kg/hr .Q24H [facility] 33.4 mls/hr Protocol Administration 5.95 UNITS/KG/HR Insulin Glargine 95 unit 05/15/17 21:00 05/15/17 22:53 Lantus SQ 95 unit HS [facility] Administration Insulin Human Lispro 17 unit 05/16/17 07:30 05/16/17 09:13 Humalog 0.1 unit/kg (17 unit) 17 unit SQ Administration AC-TID [facility] Insulin Human Lispro 0 unit 05/16/17 07:30 05/16/17 06:24 Humalog SQ 22 unit ACHS [facility] Administration Protocol Losartan Potassium 100 mg 05/15/17 09:00 05/15/17 10:57 Cozaar PO 100 mg DAILY [facility] Administration Morphine Sulfate 4 mg 05/15/17 05:17 Morphine Sulfate (Inj) IV Q2HR PRN Pain Scale 8 to 10 Morphine Sulfate 2 mg 05/15/17 07:16 Morphine Sulfate (Inj) IVP Q5M PRN Chest Pain Naloxone HCl 0.2 mg 05/15/17 05:17 Narcan IV Q2M PRN Opioid Reversal Nitroglycerin 0.4 mg 05/15/17 07:16 Nitrostat SUBLINGUAL Q5M PRN Chest Pain Intake and Output 05/15/17 05/16/17 05/16/17 22:59 06:59 14:59 Intake Total 2282.363 632.203 111.818 Output Total 200 600 Balance 2082.363 32.203 111.818 Intake: IV 1476 480 0.9% NS 160 D5 0.45 ns W/ 20 MEQ K @ 1200 150 mL/hr Heparin Sodium,Porcine/ 240 320 D5w Pmx 25,000 unit In Dextrose/Water 1 500ml. bag @ 5.95 UNITS/KG/HR 19 .97 mls/hr IV .Q24H [facility] Rx#:[id number] Insulin Regular 100 unit 36 In Sodium Chloride 0.9% 100 ml @ 0.1 UNITS/KG/HR 16.95 mls/hr IV .Q5H58M [facility] Rx#:[id number] Intake, IV Titration 386.363 152.203 111.818 Amount Heparin Sodium,Porcine/ 235.979 152.203 111.818 D5w Pmx 25,000 unit In Dextrose/Water 1 500ml. bag @ 5.95 UNITS/KG/HR 19 .97 mls/hr IV .Q24H [facility] Rx#:[id number] Insulin Regular 100 unit 150.384 In Sodium Chloride 0.9% 100 ml @ 0.1 UNITS/KG/HR 16.95 mls/hr IV .Q5H58M [facility] Rx#:[id number] Oral 420 Output: Urine 200 600 Other: Voiding Method Urinal Urinal Weight 160.3 kg Patient Weight 05/17/17 06:59 Weight 160.3 kg 05/16/17 06:41 05/16/17 06:41 EKG Interpretations (text) EKG shows a sinus tachycardia with nonspecific ST-T wave changes Assessment and Plan Plan: Assessment and plan #1 DKA #2 abdominal pain #3 acute renal failure #4 abnormal troponins, likely secondary to acute renal failure denies having any chest discomfort. EKG shows a sinus tachycardia with nonspecific ST-T wave changes # 5 hypertension #6 hyperlipidemia #7 obesity #8 hyperkalemia Plan We will obtain an echocardiogram with Doppler study. We will also request a d- dimer be performed. Patient's abnormality troponin is likely secondary to acute renal failure, he did recently have a dobutamine echocardiographic study performed in January which was negative for any reversible ischemia. Further recommendations to follow. DNP note has been reviewed, I agree with a documented findings and plan of care. Patient was seen and examined.
[2017-05-16 11:34] VITALS: BMI 47.9
[2017-05-16 12:05] LABS: Glucose,Whole Blood 345 mg/dL (75-99)
[2017-05-16] MEDS: ESOMEPRAZOLE 20 MG in SODIUM CHLORIDE 0.9% 50 ML IVPB SCH (12:22)
[2017-05-16] MEDS: ATENOLOL 50 MG TAB PO SCH (12:28)
[2017-05-16] MEDS: hydrALAZINE HCL 50 MG TAB PO SCH ×3 (12:28→22:59)
[2017-05-16] MEDS: FUROSEMIDE 40 MG TAB PO SCH ×2 (12:28→20:45)
[2017-05-16] MEDS: LOSARTAN 50 MG TAB PO SCH (12:28)
[2017-05-16] MEDS: cloNIDine HCL 0.2 MG TAB PO SCH ×2 (12:28→20:45)
--- NOTE | 2017-05-16 14:31 | ECHOF ---
Referral Reason:abn trop MEASUREMENTS -------- HEIGHT: 182.9 cm WEIGHT: 160.1 kg BP: 124/66 RVIDd: 3.6 cm (< 3.3) IVSd: 1.7 cm (0.6 - 1.1) LVIDd: 4.6 cm (3.9 - 5.3) LVPWd: 1.7 cm (0.6 - 1.1) IVSs: 2.2 cm LVIDs: 3.3 cm LVPWs: 2.1 cm LA Diam: 4.1 cm (2.7 - 3.8) LAESV Index (A-L): 31.74 ml/m Ao Diam: 4.0 cm (2.0 - 3.7) AV Cusp: 2.7 cm (1.5 - 2.6) MV EXCURSION: 13.275 mm (> 18.000) MV EF SLOPE: 55 mm/s (70 - 150) EPSS: 0.7 cm MV E Arnel: 0.57 m/s MV DecT: 333 ms MV A Arnel: 0.82 m/s MV E/A Ratio: 0.69 RAP: 15.00 mmHg RVSP: 43.21 mmHg FINDINGS -------- Sinus rhythm. This was a technically difficult study with suboptimal apical views. The left ventricular size is normal. There is severe concentric left ventricular hypertrophy. Overall left ventricular systolic function is normal with, an EF between 55 - 60 %. The right ventricle is mildly enlarged. LA is midly dilated 29-33ml/m2. The right atrium is normal in size. 1.5mg of Definity was utilized for enhancement of images The aortic valve is trileaflet and appears structurally normal. Mild mitral annular calcification present. Mild tricuspid regurgitation present. There is mild pulmonary hypertension. The right ventricular systolic pressure, as measured by Doppler, is 43.21mmHg. The pulmonic valve was not well visualized. The aortic root is dilated measuring 4.0cm. The inferior vena cava is dilated with no significant inspiratory collapse which is consistent estimated right atrial pressure of >15 mmHg. There is no pericardial effusion. CONCLUSIONS -------- 1. Sinus rhythm. 2. Mild mitral annular calcification present. 3. Mild tricuspid regurgitation present. 4. There is mild pulmonary hypertension. 5. The right ventricular systolic pressure, as measured by Doppler, is 43.21mmHg. 6. The pulmonic valve was not well visualized. 7. The aortic root is dilated measuring 4.0cm. 8. The inferior vena cava is dilated with no significant inspiratory collapse which is consistent estimated right atrial pressure of >15 mmHg. 9. There is no pericardial effusion. 10. This was a technically difficult study with suboptimal apical views. 11. The left ventricular size is normal. 12. There is severe concentric left ventricular hypertrophy. 13. Overall left ventricular systolic function is normal with, an EF between 55 - 60 %. 14. The right ventricle is mildly enlarged. 15. LA is midly dilated 29-33ml/m2. 16. 1.5mg of Definity was utilized for enhancement of images 17. The aortic valve is trileaflet and appears structurally normal. [employer] MANAGER: Yen Silver RDCS
[2017-05-16 16:46] LABS: Glucose,Whole Blood 188 mg/dL (75-99)
[2017-05-16 20:34] LABS: Glucose,Whole Blood 236 mg/dL (75-99)
[2017-05-16] MEDS: INSULIN GLARGINE 100 UNIT/ML 10 ML VIAL SQ SCH (20:45)
--- NOTE | 2017-05-16 21:55 | HP ---
This patient was admitted in my absence. He came in with a complaint of lower abdominal pain. Denied indigestion. It had been going on for several days. He presented with an elevated troponin. He has uncontrolled diabetes and obesity. The rest of his history and physical can be found in his original admission evaluation. IMPRESSION: 1. Abdominal tobi. 2. Indigestion. 3. Chest pain. 4. Rule out myocardial infarction. 5. Chronically uncontrolled diabetes mellitus. 6. Morbid obesity. PLAN: 1. Bed rest. 2. Serial EKGs and enzymes. 3. Cardiology consult. MELISSA
--- NOTE | 2017-05-16 22:14 | PN ---
DATE OF SERVICE: 05/16/2017 CHIEF COMPLAINT: Abdominal pain, chest pain and possible acute PR. HISTORY OF PRESENT ILLNESS: This gentleman is comfortable and he is awaiting his cardiology assessment. PHYSICAL EXAM: His vital signs are normal. The chest is clear. Cardiac exam is normal. The abdomen is protuberant and soft. No masses or tenderness. IMPRESSION: 1. Possible myocardial infarction. 2. Abdominal pain. 3. Uncontrolled diabetes mellitus. 4. Morbid obesity. PLAN: Await Cardiology's recommendations for further evaluation. MELISSA
[2017-05-17 05:52] LABS: Glucose,Whole Blood 183 mg/dL (75-99)
[2017-05-17] MEDS: INSULIN LISPRO (humaLOG) 300 UNIT/3 ML VIAL SQ SCH ×7 (07:13→21:18)
[2017-05-17] MEDS: cloNIDine HCL 0.2 MG TAB PO SCH ×2 (10:04→21:17)
[2017-05-17] MEDS: hydrALAZINE HCL 50 MG TAB PO SCH ×3 (10:04→23:04)
[2017-05-17] MEDS: ATENOLOL 50 MG TAB PO SCH (10:04)
[2017-05-17] MEDS: FUROSEMIDE 40 MG TAB PO SCH ×2 (10:04→21:17)
[2017-05-17] MEDS: LOSARTAN 50 MG TAB PO SCH (10:05)
[2017-05-17] MEDS: ESOMEPRAZOLE 20 MG in SODIUM CHLORIDE 0.9% 50 ML IVPB SCH (10:07)
[2017-05-17 12:31] LABS: Glucose,Whole Blood 272 mg/dL (75-99)
--- NOTE | 2017-05-17 14:53 | P.PN ---
Subjective This is a pleasant 66-year-old gentleman with history of diabetes, hypertension, asthma, morbid obesity, who presents to the hospital with symptoms of abdominal discomfort, vomiting and weakness for the past 3 days or so. Patient states he has not been checking his blood sugars at home because he has been feeling so unwell. He denies any chest discomfort, he does get occasional exertional shortness of breath. She did have a dobutamine echocardiographic study performed in January of this year which was negative for any stress-induced ischemia. EKG on admission showed a sinus tachycardia with nonspecific ST-T wave changes. KUB x-ray unremarkable. Chest x-ray did not reveal any acute cardiopulmonary process. CT of the abdomen and pelvis did not reveal any acute intra-abdominal process. I pressure on admission 142/60 with a heart rate of 118, 97% on room air. White blood cell count on admission 15.3 , 14.9 this morning. Hemoglobin on admission 16.3, 12.9 this morning. Admission labs, Glucose 1077, potassium 6.6, BUN 67, creatinine 1.8, troponins 0.038, 0.051, 0.084, this morning's labs, potassium 5.5, BUN 78, creatinine 2.6. 05/17/2017. Patient seen and examined this morning, feeling better overall, echocardiogram with Doppler study was performed which revealed an ejection fraction of 55-60%.blood sugars are still not under adequate control, creatinine today 2.6. Objective - Vital Signs Vital signs: Vital Signs Temp 97 F L 05/17/17 12:00 Pulse 48 L 05/17/17 12:00 Resp 16 05/17/17 12:00 BP 93/39 05/17/17 12:00 Pulse Ox 95 05/17/17 12:00 Intake & Output 05/16/17 05/17/17 05/17/17 18:59 06:59 18:59 Intake Total 640.301 40 490 Output Total 450 550 Balance 190.301 -510 490 Weight 160.3 kg 162 kg Intake: IV 40 0.9% NS 40 Intake, IV Titration 400.301 Amount Heparin Sodium,Porcine/ 400.301 D5w Pmx 25,000 unit In Dextrose/Water 1 500ml. bag @ 5.95 UNITS/KG/HR 19 .97 mls/hr IV .Q24H [facility] Rx#:[id number] Oral 240 490 Output: Urine 450 550 Other: Voiding Method Urinal # Voids 1 - Exam PHYSICAL EXAMINATION: HEENT: Head is atraumatic, normocephalic. Pupils equal, round. Neck is supple. There is no elevated jugular venous pressure. HEART EXAMINATION: Heart S1, S2 normal. No murmur or gallop heard. CHEST EXAMINATION: Lungs are clear to auscultation and precussion. No chest wall tenderness is noted on palpation or with deep breathing. ABDOMEN: Soft, obese, mild generalized tenderness . Bowel sounds are heard. No organomegaly noted. EXTREMITIES: 2+ peripheral pulses with trace evidence of peripheral edema and no calf tenderness noted. NEUROLOGIC patient is awake, alert and oriented -3. - Labs CBC & Chem 7: 05/16/17 06:41 05/16/17 06:41 Labs: Abnormal Lab Results - Last 24 Hours (Table) 05/16/17 05/16/17 05/16/17 Range/Units 14:56 16:43 20:32 APTT 83.8 H (22.0-30.0) sec POC Glucose (mg/dL) 188 H 236 H (75-99) mg/dL 05/16/17 05/17/17 05/17/17 Range/Units 22:15 05:50 06:08 APTT 65.5 H 64.1 H (22.0-30.0) sec POC Glucose (mg/dL) 183 H (75-99) mg/dL 05/17/17 Range/Units 12:14 APTT (22.0-30.0) sec POC Glucose (mg/dL) 272 H (75-99) mg/dL Microbiology - Last 24 Hours (Table) 05/15/17 09:14 Blood Culture - Preliminary Blood No Growth after 48 hours 05/15/17 14:46 Blood Culture - Preliminary Blood No Growth after 24 hours 05/15/17 04:33 Urine Culture - Final Urine,Clean Catch Assessment and Plan Plan: Assessment and plan #1 DKA #2 abdominal pain #3 acute renal failure #4 abnormal troponins, likely secondary to acute renal failure denies having any chest discomfort. EKG shows a sinus tachycardia with nonspecific ST-T wave changes # 5 hypertension #6 hyperlipidemia #7 obesity #8 hyperkalemia Plan echo with Doppler study revealed normal left ventricular systolic function.d- dimer negative. . Patient's abnormality troponin is likely secondary to acute renal failure, he did recently have a dobutamine echocardiographic study performed in January which was negative for any reversible ischemia. we will follow this patient with you now on an as-needed basis only, please don't hesitate to call with any questions. DNP note has been reviewed, I agree with a documented findings and plan of care. Patient was seen and examined.
[2017-05-17] MEDS ORDERED: MAG HYDROX/AL HYDROX/SIMETH 30 ML CUP PO PRN (16:21)
[2017-05-17 17:19] LABS: Glucose,Whole Blood 183 mg/dL (75-99)
[2017-05-17 20:56] LABS: Glucose,Whole Blood 163 mg/dL (75-99)
[2017-05-17] MEDS: INSULIN GLARGINE 100 UNIT/ML 10 ML VIAL SQ SCH (21:17)
[2017-05-18 06:00] LABS: Glucose,Whole Blood 199 mg/dL (75-99)
[2017-05-18] MEDS: PANTOPRAZOLE 40 MG TABLET PO SCH (06:54)
[2017-05-18] MEDS: INSULIN LISPRO (humaLOG) 300 UNIT/3 ML VIAL SQ SCH ×7 (06:54→21:34)
[2017-05-18 07:23] LABS: Basophils % (A) 0 %; CH 30.9; CHCM 33.7; Eosinophils # (A) 0.3 k/uL (0-0.7); Eosinophils % (A) 2 %; HDW 2.54; HGB 13.4 gm/dL (13.0-17.5); Luc # (Auto) 0.21; Luc % (Auto) 2; Lymphocytes # (A) 2.1 k/uL (1.0-4.8); Lymphocytes % (A) 16 %; MCH 30.9 pg (25.0-35.0); MCHC 33.4 g/dL (31.0-37.0); MCV 92.3 fL (80.0-100.0); Mean Platelet Volume 9.4; Monocytes # (A) 0.8 k/uL (0-1.0); Monocytes % (A) 6 %; Neutrophils # (A) 9.6 k/uL (1.3-7.7); Neutrophils % (A) 74 %; RBC 4.33 m/uL (4.30-5.90); RDW 13.2 % (11.5-15.5); WBC 12.9 k/uL (3.8-10.6)
[2017-05-18 07:43] LABS: Calcium 9.5 mg/dL (8.4-10.2); Potassium 4.3 mmol/L (3.5-5.1)
[2017-05-18] MEDS: cloNIDine HCL 0.2 MG TAB PO SCH ×2 (09:20→20:54)
[2017-05-18] MEDS: LOSARTAN 50 MG TAB PO SCH (09:20)
[2017-05-18] MEDS: FUROSEMIDE 40 MG TAB PO SCH ×2 (09:20→20:54)
[2017-05-18] MEDS: hydrALAZINE HCL 50 MG TAB PO SCH ×3 (09:20→20:54)
[2017-05-18] MEDS: ATENOLOL 50 MG TAB PO SCH (09:20)
[2017-05-18 11:49] LABS: Glucose,Whole Blood 380 mg/dL (75-99)
[2017-05-18 16:47] LABS: Glucose,Whole Blood 299 mg/dL (75-99)
[2017-05-18 21:21] LABS: Glucose,Whole Blood 206 mg/dL (75-99)
[2017-05-18] MEDS: INSULIN GLARGINE 100 UNIT/ML 10 ML VIAL SQ SCH (21:34)
[2017-05-19 05:56] LABS: Glucose,Whole Blood 268 mg/dL (75-99)
[2017-05-19] MEDS: PANTOPRAZOLE 40 MG TABLET PO SCH (07:03)
[2017-05-19] MEDS: INSULIN LISPRO (humaLOG) 300 UNIT/3 ML VIAL SQ SCH ×7 (07:21→22:37)
[2017-05-19] MEDS: ATENOLOL 50 MG TAB PO SCH (09:09)
[2017-05-19] MEDS: cloNIDine HCL 0.2 MG TAB PO SCH ×2 (09:09→22:44)
[2017-05-19] MEDS: FUROSEMIDE 40 MG TAB PO SCH ×2 (09:10→22:44)
[2017-05-19] MEDS: LOSARTAN 50 MG TAB PO SCH (09:10)
[2017-05-19] MEDS: hydrALAZINE HCL 50 MG TAB PO SCH ×3 (09:48→22:44)
[2017-05-19 11:35] LABS: Glucose,Whole Blood 229 mg/dL (75-99)
[2017-05-19 16:43] LABS: Glucose,Whole Blood 304 mg/dL (75-99)
[2017-05-19 20:53] LABS: Glucose,Whole Blood 312 mg/dL (75-99)
[2017-05-19] MEDS: INSULIN GLARGINE 100 UNIT/ML 10 ML VIAL SQ SCH (22:37)
[2017-05-20 06:21] LABS: Glucose,Whole Blood 188 mg/dL (75-99)
[2017-05-20] MEDS: PANTOPRAZOLE 40 MG TABLET PO SCH (06:37)
[2017-05-20] MEDS: INSULIN LISPRO (humaLOG) 300 UNIT/3 ML VIAL SQ SCH ×4 (07:04→12:18)
[2017-05-20] MEDS: FUROSEMIDE 40 MG TAB PO SCH (08:35)
[2017-05-20] MEDS: hydrALAZINE HCL 50 MG TAB PO SCH (08:35)
[2017-05-20] MEDS: cloNIDine HCL 0.2 MG TAB PO SCH (08:36)
[2017-05-20] MEDS: LOSARTAN 50 MG TAB PO SCH (08:36)
[2017-05-20] MEDS: ATENOLOL 50 MG TAB PO SCH (08:37)
--- NOTE | 2017-05-20 09:00 | PN ---
CHIEF COMPLAINT: Uncontrolled diabetes mellitus. HISTORY OF PRESENT ILLNESS: This gentleman is doing well and his blood sugars are coming down. He is feeling better. PHYSICAL EXAM: His chest is clear. Cardiac exam is normal and the abdomen is soft, nontender. IMPRESSION: 1. Uncontrolled diabetes. 2. Obesity. PLAN: Probably home tomorrow. MELISSA
[2017-05-20 11:28] VITALS: BP 117/58; PULSE 68; RESP 16; TEMP 96.8
[2017-05-20 12:03] LABS: Glucose,Whole Blood 256 mg/dL (75-99)
--- NOTE | 2017-05-20 14:00 | DS ---
CHIEF COMPLAINT: DKA, elevated troponins. HISTORY OF PRESENT ILLNESS AND PHYSICAL EXAM: Details of this man's history and physical can be found in the initial workup. COURSE IN THE HOSPITAL: After admission, he was placed at bed rest, started on intravenous fluids and IV insulin. Sugars came down. His troponin was elevated , but Cardiology did not feel this was related to myocardial damage. Blood sugars were gradually brought down and it was felt that he could be discharged on the and he will go home on his usual activity and diet. He will be discharged on Lantus 95 units once a day and Humalog ( ) units before meals. He will be on his usual dose of losartan, Protonix, atenolol, Catapres, Lasix and hydralazine. He will be seen in the office in a day or 2. FINAL DIAGNOSES: 1. Diabetic ketoacidosis. 2. Elevated troponin. 3. Morbid obesity. OPERATIONS: None. CONSULTATION: Cardiology. He is improved. MELISSA
== END 2017-05-20 15:09 | disposition home or self-care (01) | DRG 638 ==
LOC: EC 02:57 → 6ICU 05:23 → 6SEL 11:42
PROVIDERS: ADMIT Family Medicine; ATTEND Family Medicine
DX: E13.10 Other specified diabetes mellitus with ketoacidosis without coma (principal); N17.9 Acute kidney failure, unspecified; Z68.42 Body mass index [BMI] 45.0-49.9, adult; E83.52 Hypercalcemia; E66.01 Morbid (severe) obesity due to excess calories; E87.5 Hyperkalemia; E78.5 Hyperlipidemia, unspecified; I10 Essential (primary) hypertension; R19.7 Diarrhea, unspecified; J45.909 Unspecified asthma, uncomplicated; Z71.3 Dietary counseling and surveillance; Z90.49 Acquired absence of other specified parts of digestive tract; Z79.4 Long term (current) use of insulin; Z79.1 Long term (current) use of non-steroidal anti-inflammatories (NSAID); Z79.84 Long term (current) use of oral hypoglycemic drugs; Z79.899 Other long term (current) drug therapy
CPT/HCPCS: 36415; 71010; 71020; 74000; 74176; 80048; 80051; 80053; 80061; 81003; 82150; 82550; 82553; 82565; 82947; 83036; 83605; 83690; 84100; 84132; 84484; 84520; 85025; 85379; 85730; 87040; 87086; 93005; 93306; 94760

== ENCOUNTER 2018-06-11 03:52 | Inpatient (IN) | payer OTHER, MEDICARE ==
[2018-06-11] MEDS ORDERED: SODIUM CHLORIDE 0.9% 500 ML IV ONE (03:59)
[2018-06-11 04:08] LABS: Glucose,Whole Blood 91 mg/dL (75-99)
--- NOTE | 2018-06-11 04:10 | ED ---
General Adult HPI - General Stated complaint: Diabetic Issues Time Seen by Provider: 06/11/18 03:55 Source: patient, EMS, RN notes reviewed, old records reviewed - History of Present Illness Initial comments: 68-year-old male history of diabetes on insulin presents with an episode of confusion and diaphoresis. Patient was found by EMS to have a blood sugar of 42. He was given 1 amp of IV dextrose with improvement in his mental status. Patient was observed by EMS and did have repeat episode of confusion. He was transferred to the hospital for further evaluation and treatment. According to EMS vital signs were stable. Patient has no complaints the time my evaluation. No headache. No nausea vomiting. No chest pain. Patient states he took his insulin as prescribed. Patient is alert and oriented at the time my evaluation. - Related Data Home Medications Medication Instructions Recorded Confirmed Albuterol Sulfate [Proventil Hfa] 2 puff INHALATION RT-QID PRN 05/15/17 08/22/17 Atenolol [Tenormin] 50 mg PO DAILY 05/15/17 08/22/17 Insulin Aspart [NovoLOG] 20 unit SQ AC-TID 05/15/17 08/22/17 Insulin Glargine [Lantus] 80 unit SQ HS 05/15/17 08/22/17 Losartan Potassium 100 mg PO DAILY 05/15/17 08/22/17 Naproxen [Naprosyn] 500 mg PO Q12HR 05/15/17 08/22/17 Omeprazole [PriLOSEC] 20 mg PO AC-BRKFST 05/15/17 08/22/17 Simvastatin [Zocor] 10 mg PO HS 05/15/17 08/22/17 cloNIDine HCL [Catapres] 0.2 mg PO BID 05/15/17 08/22/17 hydrALAZINE HCL [Apresoline] 100 mg PO TID 05/15/17 08/22/17 metFORMIN HCL [Glucophage] 850 mg PO TID 05/15/17 08/22/17 Allergies Allergy/AdvReac Type Severity Reaction Status Date / Time TIDE LAUNDRY SOAP Allergy Severe Rash/Hives Uncoded 08/22/17 23:39 Review of Systems ROS Statement: Those systems with pertinent positive or pertinent negative responses have been documented in the HPI. ROS Other: All systems not noted in ROS Statement are negative. Past Medical History Past Medical History: Asthma, Diabetes Mellitus, Hypertension History of Any Multi-Drug Resistant Organisms: None Reported Past Surgical History: Cholecystectomy Past Psychological History: No Psychological Hx Reported Smoking Status: Never smoker Past Alcohol Use History: Rare Past Drug Use History: None Reported General Exam General appearance: alert, in no apparent distress Head exam: Present: atraumatic, normocephalic Eye exam: Present: normal appearance, PERRL ENT exam: Present: normal exam Neck exam: Present: normal inspection. Absent: tenderness, meningismus Respiratory exam: Present: normal lung sounds bilaterally. Absent: respiratory distress, wheezes Cardiovascular Exam: Present: regular rate, normal rhythm GI/Abdominal exam: Present: soft. Absent: distended, tenderness, guarding Extremities exam: Present: normal inspection, full ROM, normal capillary refill. Absent: pedal edema Neurological exam: Present: alert, oriented X3, CN II-XII intact. Absent: motor sensory deficit Psychiatric exam: Present: normal affect, normal mood Skin exam: Present: warm, intact, diaphoretic. Absent: cyanosis Course Vital Signs 06/11/18 06/11/18 06/11/18 04:06 04:37 06:17 Temperature 94.1 F L 96.7 F L Pulse Rate 50 L Respiratory 17 Rate Blood Pressure 164/77 O2 Sat by Pulse 99 Oximetry EKG Findings - EKG Comments: EKG Findings:: EKG: Sinus bradycardia rate of 45, ID interval 192, QRS duration 112, QTC 4:[address] segment elevation or depression. Medical Decision Making - Medical Decision Making 68-year-old male presenting with altered mental status and hypoglycemia. Patient is found to be hypoglycemic despite 2 doses of IV dextrose. He is started on D5 4 5 infusion. Patient is mildly hypothermic as well. Thyroid studies are obtained and reveal normal TSH. Patient has normal white blood cell count, hemoglobin is stable 12.5, creatinine is at baseline 1.5. Urinalysis does reveal urinary tract infection. Urine culture and blood culture are pending. Patient is started on Rocephin in the emergency department. He will be admitted for further blood sugar monitoring and treatment of urinary tract infection. - Lab Data Result diagrams: 06/11/18 04:23 06/11/18 04:23 Lab Results 06/11/18 06/11/18 06/11/18 Range/Units 04:04 04:23 04:23 WBC 6.3 (3.8-10.6) k/uL RBC 4.05 L (4.30-5.90) m/uL Hgb 12.5 L (13.0-17.5) gm/dL Hct 37.9 L (39.0-53.0) % MCV 93.6 (80.0-100.0) fL MCH 30.8 (25.0-35.0) pg MCHC 32.9 (31.0-37.0) g/dL RDW 13.1 (11.5-15.5) % Plt Count 113 L (150-450) k/uL Neutrophils % 72 % Lymphocytes % 15 % Monocytes % 10 % Eosinophils % 2 % Basophils % 0 % Neutrophils # 4.6 (1.3-7.7) k/uL Lymphocytes # 0.9 L (1.0-4.8) k/uL Monocytes # 0.6 (0-1.0) k/uL Eosinophils # 0.1 (0-0.7) k/uL Basophils # 0.0 (0-0.2) k/uL Sodium 143 (137-145) mmol/L Potassium 4.5 (3.5-5.1) mmol/L Chloride 113 H (98-107) mmol/L Carbon Dioxide 21 L (22-30) mmol/L Anion Gap 9 mmol/L BUN 46 H (9-20) mg/dL Creatinine 1.52 H (0.66-1.25) mg/dL Est GFR (CKD-EPI)AfAm 53 (>60 ml/min/1.73 sqM) Est GFR (CKD-EPI)NonAf 46 (>60 ml/min/1.73 sqM) Glucose 77 (74-99) mg/dL POC Glucose (mg/dL) 91 (75-99) mg/dL POC Glu Batch Analyst Suki Helms Plasma Lactic Acid Michael (0.7-2.0) mmol/L Calcium 9.5 (8.4-10.2) mg/dL Total Bilirubin 0.4 (0.2-1.3) mg/dL AST 34 (17-59) U/L ALT 31 (21-72) U/L Alkaline Phosphatase 68 (38-126) U/L Total Protein 6.6 (6.3-8.2) g/dL Albumin 3.5 (3.5-5.0) g/dL TSH (0.465-4.680) mIU/L Urine Color Urine Appearance (Clear) Urine pH (5.0-8.0) Ur Specific [place] (1.001-1.035) Urine Protein (Negative) Urine Glucose (UA) (Negative) Urine Ketones (Negative) Urine Blood (Negative) Urine Nitrite (Negative) Urine Bilirubin (Negative) Urine Urobilinogen (<2.0) mg/dL Ur Leukocyte Esterase (Negative) Urine WBC (0-5) /hpf Urine Bacteria (None) /hpf Hyaline Casts (0-2) /lpf Urine Mucus (None) /hpf 06/11/18 06/11/18 06/11/18 Range/Units 04:23 04:55 05:59 WBC (3.8-10.6) k/uL RBC (4.30-5.90) m/uL Hgb (13.0-17.5) gm/dL Hct (39.0-53.0) % MCV (80.0-100.0) fL MCH (25.0-35.0) pg MCHC (31.0-37.0) g/dL RDW (11.5-15.5) % Plt Count (150-450) k/uL Neutrophils % % Lymphocytes % % Monocytes % % Eosinophils % % Basophils % % Neutrophils # (1.3-7.7) k/uL Lymphocytes # (1.0-4.8) k/uL Monocytes # (0-1.0) k/uL Eosinophils # (0-0.7) k/uL Basophils # (0-0.2) k/uL Sodium (137-145) mmol/L Potassium (3.5-5.1) mmol/L Chloride (98-107) mmol/L Carbon Dioxide (22-30) mmol/L Anion Gap mmol/L BUN (9-20) mg/dL Creatinine (0.66-1.25) mg/dL Est GFR (CKD-EPI)AfAm (>60 ml/min/1.73 sqM) Est GFR (CKD-EPI)NonAf (>60 ml/min/1.73 sqM) Glucose (74-99) mg/dL POC Glucose (mg/dL) 52 L (75-99) mg/dL POC Glu Batch Analyst Suki Helms Plasma Lactic Acid Michael 0.8 (0.7-2.0) mmol/L Calcium (8.4-10.2) mg/dL Total Bilirubin (0.2-1.3) mg/dL AST (17-59) U/L ALT (21-72) U/L Alkaline Phosphatase (38-126) U/L Total Protein (6.3-8.2) g/dL Albumin (3.5-5.0) g/dL TSH 2.230 (0.465-4.680) mIU/L Urine Color Urine Appearance (Clear) Urine pH (5.0-8.0) Ur Specific [place] (1.001-1.035) Urine Protein (Negative) Urine Glucose (UA) (Negative) Urine Ketones (Negative) Urine Blood (Negative) Urine Nitrite (Negative) Urine Bilirubin (Negative) Urine Urobilinogen (<2.0) mg/dL Ur Leukocyte Esterase (Negative) Urine WBC (0-5) /hpf Urine Bacteria (None) /hpf Hyaline Casts (0-2) /lpf Urine Mucus (None) /hpf 06/11/18 Range/Units 06:15 WBC (3.8-10.6) k/uL RBC (4.30-5.90) m/uL Hgb (13.0-17.5) gm/dL Hct (39.0-53.0) % MCV (80.0-100.0) fL MCH (25.0-35.0) pg MCHC (31.0-37.0) g/dL RDW (11.5-15.5) % Plt Count (150-450) k/uL Neutrophils % % Lymphocytes % % Monocytes % % Eosinophils % % Basophils % % Neutrophils # (1.3-7.7) k/uL Lymphocytes # (1.0-4.8) k/uL Monocytes # (0-1.0) k/uL Eosinophils # (0-0.7) k/uL Basophils # (0-0.2) k/uL Sodium (137-145) mmol/L Potassium (3.5-5.1) mmol/L Chloride (98-107) mmol/L Carbon Dioxide (22-30) mmol/L Anion Gap mmol/L BUN (9-20) mg/dL Creatinine (0.66-1.25) mg/dL Est GFR (CKD-EPI)AfAm (>60 ml/min/1.73 sqM) Est GFR (CKD-EPI)NonAf (>60 ml/min/1.73 sqM) Glucose (74-99) mg/dL POC Glucose (mg/dL) (75-99) mg/dL POC Glu Batch Analyst ID Plasma Lactic Acid Michael (0.7-2.0) mmol/L Calcium (8.4-10.2) mg/dL Total Bilirubin (0.2-1.3) mg/dL AST (17-59) U/L ALT (21-72) U/L Alkaline Phosphatase (38-126) U/L Total Protein (6.3-8.2) g/dL Albumin (3.5-5.0) g/dL TSH (0.465-4.680) mIU/L Urine Color Yellow Urine Appearance Clear (Clear) Urine pH 5.0 (5.0-8.0) Ur Specific [place] 1.015 (1.001-1.035) Urine Protein Trace H (Negative) Urine Glucose (UA) Negative (Negative) Urine Ketones Negative (Negative) Urine Blood Negative (Negative) Urine Nitrite Positive (Negative) Urine Bilirubin Negative (Negative) Urine Urobilinogen <2.0 (<2.0) mg/dL Ur Leukocyte Esterase Large H (Negative) Urine WBC 28 H (0-5) /hpf Urine Bacteria Many H (None) /hpf Hyaline Casts 9 H (0-2) /lpf Urine Mucus Rare H (None) /hpf Disposition Clinical Impression: Hypoglycemia, UTI (urinary tract infection) Disposition: ADMITTED IP TO THIS [facility] Condition: Stable Is patient prescribed a controlled substance at d/c from ED?: No Referrals: Dwayne Castellano MD [Primary Care Provider] - 1-2 days Decision to Admit Reason: Admit from EC Decision Date: 06/11/18 Decision Time: 06:46
[2018-06-11 04:30] LABS: Basophils % (A) 0 %; Eosinophils # (A) 0.1 k/uL (0-0.7); Eosinophils % (A) 2 %; HCT 37.9 % (39.0-53.0); HGB 12.5 gm/dL (13.0-17.5); Lymphocytes # (A) 0.9 k/uL (1.0-4.8); Lymphocytes % (A) 15 %; MCH 30.8 pg (25.0-35.0); MCHC 32.9 g/dL (31.0-37.0); MCV 93.6 fL (80.0-100.0); Mean Platelet Volume 8.2; Monocytes # (A) 0.6 k/uL (0-1.0); Monocytes % (A) 10 %; Neutrophils # (A) 4.6 k/uL (1.3-7.7); Neutrophils % (A) 72 %; Platelet Count 113 k/uL (150-450); RBC 4.05 m/uL (4.30-5.90); RDW 13.1 % (11.5-15.5); WBC 6.3 k/uL (3.8-10.6)
[2018-06-11 04:39] LABS: Albumin 3.5 g/dL (3.5-5.0); Calcium 9.5 mg/dL (8.4-10.2); Potassium 4.5 mmol/L (3.5-5.1); Total Bilirubin 0.4 mg/dL (0.2-1.3); Total Protein 6.6 g/dL (6.3-8.2)
[2018-06-11] MEDS ORDERED: DEXTROSE 50%-WATER 50 ML SYRINGE IVP STA (06:00)
--- NOTE | 2018-06-11 06:07 | XR ---
EXAM: XR Chest, 2 Views CLINICAL HISTORY: ITS.REASON XR Reason: Pain TECHNIQUE: Frontal and lateral views of the chest. COMPARISON: Chest radiograph 05/16/2017. FINDINGS: Lungs: Central pulmonary vasculature is seen with patchy perihilar opacities. Pleural space: Unremarkable. No pneumothorax. Heart: Cardiomegaly. Mediastinum: Unremarkable. Bones/joints: Unremarkable. IMPRESSION: Findings suggestive of heart failure with pulmonary edema. Infection cannot be excluded.
[2018-06-11 06:22] LABS: Glucose,Whole Blood 52 mg/dL (75-99)
[2018-06-11] MEDS ORDERED: DEXTROSE 5%-0.45% NACL 1,000 ML IV ONE (06:24)
[2018-06-11 06:29] LABS: Appearance,Urine Clear (Clear); Bacteria,Urine Many /hpf; Bilirubin,Urine Negative (Negative); Blood,Urine Negative (Negative); Color,Urine Yellow; Glucose,Urine (UA) Negative (Negative); Hyaline Casts,Urine 9 /lpf (0-2); Ketones,Urine Negative (Negative); Leukocyte Esterase,Urine Large (Negative); Mucus,Urine Rare /hpf; Nitrite,Urine Positive (Negative); Protein,Urine Trace (Negative); Specific Gravity,Urine 1.015 (1.001-1.035); Urobilinogen,Urine <2.0 mg/dL (<2.0); WBC,Urine 28 /hpf (0-5)
[2018-06-11] MEDS ORDERED: cefTRIAXone IN SWFI 1,000 MG/10 ML SYRINGE IVP STA (06:41)
[2018-06-11] MEDS ORDERED: ACETAMINOPHEN TAB 325 MG TAB PO PRN (06:41)
[2018-06-11] MEDS ORDERED: NALOXONE 0.4 MG/ML 1 ML VIAL IV PRN (06:41)
[2018-06-11] MEDS ORDERED: HYDROCORTISONE SUCCINATE 100 MG/2 ML VIAL IV STA (06:57)
[2018-06-11 06:59] LABS: Glucose,Whole Blood 120 mg/dL (75-99)
[2018-06-11 07:42] LABS: Glucose,Whole Blood 99 mg/dL (75-99)
[2018-06-11 09:35] VITALS: BMI 47.4
[2018-06-11 12:27] LABS: Glucose,Whole Blood 191 mg/dL (75-99)
[2018-06-11] MEDS ORDERED: cloNIDine HCL 0.1 MG TAB PO PRN (12:34)
[2018-06-11] MEDS ORDERED: ALBUTEROL NEBULIZED 2.5 MG/3 ML INHALATION PRN (12:34)
[2018-06-11] MEDS ORDERED: hydrALAZINE HCL 20 MG/ML 1 ML VIAL IVP PRN (12:34)
[2018-06-11] MEDS ORDERED: ALPRAZolam 0.25 MG TAB PO PRN (16:14)
[2018-06-11] MEDS: metFORMIN 500 MG TAB PO SCH (16:16)
[2018-06-11] MEDS: hydrALAZINE HCL 50 MG TAB PO SCH ×2 (16:17→21:42)
[2018-06-11] MEDS: cefTRIAXone IN SWFI 1,000 MG/10 ML SYRINGE IVP SCH (16:53)
[2018-06-11] MEDS: INSULIN ASPART 100 UNIT/ML 1 ML 10 ML VIAL SQ SCH (17:03)
[2018-06-11 17:28] LABS: Glucose,Whole Blood 305 mg/dL (75-99)
--- NOTE | 2018-06-11 20:36 | HP ---
HISTORY AND PHYSICAL I am covering for Dr. Castellano. DATE OF SERVICE: 06/11/2018. CHIEF COMPLAINT: Hypoglycemia. HISTORY OF PRESENT ILLNESS: This 68 -year-old woman with past medical history of asthma, diabetes, GERD, hypertension, DJD, history of sleep apnea, being followed by Dr. Castellano in the outpatient setting is complaining of weakness and tiredness, sleepy and some confusion and diaphoresis. EMS found the blood sugar 142. One ampule of dextrose was given. Patient admitted to the hospital for further evaluation and treatment. The patient also had repeated episodes of confusion. There is no history of fever, rigors or chills. No history of headache, loss of consciousness or seizures. The patient also reports that the patient was working hard prior to that causing severe exhaustion according to the patient. PAST MEDICAL HISTORY: Asthma, diabetes, GERD, hypertension, DJD, sleep apnea. MEDICATIONS: Prior to admission include home medications: 1. Albuterol 2 puffs q.i.d. p.r.n. 2. Glucophage 500 mg b.i.d. with meals. 3. Apresoline 100 mg t.i.d. 4. Catapres 0.2 q.h.s. 5. Zocor 10 mg q.h.s. 6. Lantus 110 units subcu q.h.s. 7. NovoLog 20 units a.c. t.i.d. 8. Tenormin 50 mg p.o. daily. ALLERGIES: TIDE. FAMILY HISTORY: No history of heart disease or strokes in the family. SOCIAL HISTORY: Previous history of smoking. No history of current smoking. No alcohol intake. REVIEW OF SYSTEMS: ENT: No diminished vision. No diminished hearing. CARDIOVASCULAR: No angina or palpitations. Respirations: No cough. GI as mentioned earlier. : No dysuria. NERVOUS SYSTEM: No numbness or weakness. ALLERGY/IMMUNOLOGY: No asthma or hayfever. MUSCULOSKELETAL as mentioned earlier. HEMATOLOGY/ONCOLOGY: No history of anemia. ENDOCRINE: As mentioned earlier. CONSTITUTIONAL: As mentioned earlier. Dermatology: Negative. Rheumatology: Negative. Psychiatry: As mentioned earlier. PHYSICAL EXAMINATION: Alert and oriented x three. Pulse is 74, blood pressure 143/65, respirations 16, temperature 98.6, pulse ox 96 percent on room air. HEENT: Conjunctivae normal. Oral mucosa moist. Neck is no jugular venous distention. No carotid bruit. No lymph node enlargement. Cardiovascular system: S1, S2 muffled. Respiratory: Breath sounds diminished in the bases. No rhonchi and no crackles. ABDOMEN: Soft, obese, nontender. No mass palpable. Legs: No edema. No swelling. Nervous system: Higher functions as mentioned earlier. Moves all 4 limbs. No focal motor or sensory deficits. Lymphatics: No lymph nodes palpable in the neck, axillae or groin. SKIN: No ulcer, rash or bleeding. JOINT: No active deforming arthropathy. LABS: WBC 6.2, hemoglobin 12.4, platelets 113. Creatinine is 1.5. ASSESSMENT: 1. Diabetes type 2, uncontrolled with hypoglycemia. 2. Anemia. 3. Thrombocytopenia. 4. Increased creatinine, chronic kidney disease stage 3, possibly. 5. Active urinary tract infection, present on admission. 6. Asthma. 7. Gastroesophageal reflux disease. 8. Hypertension. 9. Degenerative joint disease. 10.Sleep apnea. 11.Cholecystectomy. 12.Remote history of nicotine dependence. PLAN AND DISCUSSION: This 68-year-old gentleman who presented with multiple complex medical issues, we will monitor the patient closely. Continue the current medications, management and symptomatic treatment. Otherwise, at this time, I recommend continue with current medication. Patient has received 50% dextrose. We will hold insulin till sugars are low. Otherwise, continue to monitor and further recommendations to follow. Discussed with the staff. Continue the rest of medications. Repeat labs in the morning. Antibiotics for UTI. Culture, blood and urine and Dr. Castellano will follow the patient tomorrow. Prognosis guarded. MMODL / IJN: [id number] /
[2018-06-11 20:48] LABS: Glucose,Whole Blood 241 mg/dL (75-99)
[2018-06-11] MEDS ORDERED: ATORVASTATIN 10 MG TAB PO SCH (21:00)
[2018-06-11] MEDS ORDERED: INSULIN DETEMIR 100 UNIT/ML 10 ML VIAL SQ SCH (21:00)
[2018-06-11] MEDS ORDERED: cloNIDine HCL 0.2 MG TAB PO SCH (21:00)
[2018-06-11] MEDS ORDERED: TEMAZEPAM 15 MG CAP PO PRN (21:00)
[2018-06-11] MEDS: HEPARIN SODIUM,PORCINE 5,000 UNIT/ML 1 ML VIAL SQ SCH (21:42)
[2018-06-11 22:30] VITALS: RESP 18
[2018-06-12] MEDS ORDERED: INSULIN DETEMIR 100 UNIT/ML 10 ML VIAL SQ SCH (06:08)
[2018-06-12 06:50] LABS: Glucose,Whole Blood 86 mg/dL (75-99)
[2018-06-12 07:23] VITALS: BP 135/60; PULSE 56; TEMP 97.9
[2018-06-12] MEDS: INSULIN ASPART 100 UNIT/ML 1 ML 10 ML VIAL SQ SCH ×2 (08:20→12:37)
[2018-06-12] MEDS: hydrALAZINE HCL 50 MG TAB PO SCH (08:23)
[2018-06-12 08:24] LABS: Basophils % (A) 1 %; Eosinophils # (A) 0.3 k/uL (0-0.7); Eosinophils % (A) 3 %; HCT 35.2 % (39.0-53.0); HGB 11.5 gm/dL (13.0-17.5); Lymphocytes # (A) 2.3 k/uL (1.0-4.8); Lymphocytes % (A) 28 %; MCH 30.5 pg (25.0-35.0); MCHC 32.6 g/dL (31.0-37.0); MCV 93.8 fL (80.0-100.0); Mean Platelet Volume 7.6; Monocytes # (A) 0.9 k/uL (0-1.0); Monocytes % (A) 10 %; Neutrophils # (A) 4.6 k/uL (1.3-7.7); Neutrophils % (A) 56 %; Platelet Count 205 k/uL (150-450); RBC 3.75 m/uL (4.30-5.90); RDW 13.2 % (11.5-15.5); WBC 8.3 k/uL (3.8-10.6)
[2018-06-12] MEDS: metFORMIN 500 MG TAB PO SCH (08:24)
[2018-06-12] MEDS: HEPARIN SODIUM,PORCINE 5,000 UNIT/ML 1 ML VIAL SQ SCH (08:24)
[2018-06-12 08:47] LABS: Albumin 3.3 g/dL (3.5-5.0); Calcium 9.7 mg/dL (8.4-10.2); Magnesium 1.9 mg/dL (1.6-2.3); Potassium 4.6 mmol/L (3.5-5.1); Total Bilirubin 0.4 mg/dL (0.2-1.3); Total Protein 6.2 g/dL (6.3-8.2)
[2018-06-12] MEDS ORDERED: ATENOLOL 50 MG TAB PO SCH (09:00)
[2018-06-12] MEDS: cefTRIAXone IN SWFI 1,000 MG/10 ML SYRINGE IVP SCH (09:31)
[2018-06-12 11:57] LABS: Glucose,Whole Blood 54 mg/dL (75-99)
[2018-06-12 12:25] LABS: Glucose,Whole Blood 55 mg/dL (75-99)
[2018-06-12 12:34] LABS: Hemoglobin A1C 6.9 % (4.0-6.0)
[2018-06-12 12:48] LABS: Glucose,Whole Blood 52 mg/dL (75-99)
[2018-06-12 12:50] LABS: Glucose,Whole Blood 76 mg/dL (75-99)
--- NOTE | 2018-06-12 18:22 | HP ---
HISTORY AND PHYSICAL The patient was admitted with hypoglycemia while I was out of town and was seen by my designated and an addendum to his admission will be dictated. HEBERT / ETHEL: [id number] /
--- NOTE | 2018-06-15 18:16 | DS ---
DISCHARGE SUMMARY DATE OF SERVICE: 06/12/2018 CHIEF COMPLAINT: Hypoglycemia. HISTORY OF PRESENT ILLNESS AND PHYSICAL EXAM: Details of this man's history and physical can be found in the initial workup. LABORATORY STUDIES: While he was in a hospital he had laboratory studies, details which can be found laboratory section of chart. COURSE IN HOSPITAL: After admission he was placed on bedrest on started on intravenous fluids and his blood sugars were monitored. He had no further problems hypoglycemia. It was felt he could go home on the and be seen in the office in a day or 2 and will further adjust his insulin. Dropping back slightly both on the long and short-acting forms. FINAL DIAGNOSES: 1. Hypoglycemia. 2. Type 2 insulin-dependent diabetes mellitus. 3. Obesity. 4. Hypertension. OPERATIONS: None. CONSULTATION: None. He is improved. MMODL / IJN: [id number] /
== END 2018-06-12 14:53 | disposition home or self-care (01) | DRG 638 ==
LOC: EC 03:52 → 4MS4W 06:43
PROVIDERS: ADMIT Family Medicine; ATTEND Family Medicine
DX: E11.649 Type 2 diabetes mellitus with hypoglycemia without coma (principal); N39.0 Urinary tract infection, site not specified; D64.9 Anemia, unspecified; D69.6 Thrombocytopenia, unspecified; E11.22 Type 2 diabetes mellitus with diabetic chronic kidney disease; G47.30 Sleep apnea, unspecified; I12.9 Hypertensive chronic kidney disease with stage 1 through stage 4 chronic kidney disease, or unspecified chronic kidney disease; J45.909 Unspecified asthma, uncomplicated; K21.9 Gastro-esophageal reflux disease without esophagitis; M19.90 Unspecified osteoarthritis, unspecified site; N18.3 Chronic kidney disease, stage 3 (moderate); Z79.4 Long term (current) use of insulin; Z87.891 Personal history of nicotine dependence; Z79.899 Other long term (current) drug therapy; Z91.048 Other nonmedicinal substance allergy status; Z90.49 Acquired absence of other specified parts of digestive tract
CPT/HCPCS: 36415; 71046; 80053; 81001; 83036; 83605; 83735; 83880; 84443; 85025; 87040; 87077; 87086; 87186; 93005; 96361; 96374; 96375; 99285

== ENCOUNTER 2019-09-28 08:54 | Day surgery (SDC) | payer MEDICARE, OTHER ==
[2019-09-28 09:39] LABS: HCT 39.1 % (39.0-53.0); HGB 12.5 gm/dL (13.0-17.5); MCHC 31.9 g/dL (31.0-37.0); MCV 94.2 fL (80.0-100.0); Mean Platelet Volume 9.8; Platelet Count 327 k/uL (150-450); RBC 4.15 m/uL (4.30-5.90); Reticulocyte % 1.6 % (0.5-2.0); WBC 31.2 k/uL (3.8-10.6)
[2019-09-28 09:40] LABS: Prothrombin Time 10.8 sec (9.0-12.0)
[2019-09-28 09:43] VITALS: TEMP 97.8
[2019-09-28] MEDS ORDERED: KETAMINE 10 MG/ML 20 ML VIAL ONE (10:20)
[2019-09-28] MEDS ORDERED: MIDAZOLAM 2 MG/2 ML VIAL ONE (10:20)
[2019-09-28] MEDS ORDERED: fentaNYL (PF) 50 MCG/ML 2 ML AMP ONE (10:20)
[2019-09-28 11:07] LABS: Band Neutrophils % 9 %; Basophils # (M) 0.31 k/uL (0-0.2); Eosinophils # (M) 0.94 k/uL (0-0.7); Lymphocytes # (M) 6.86 k/uL (1.0-4.8); Metamyelocytes # (M) 3.12 k/uL (0); Metamyelocytes % 10 %; Monocytes # (M) 2.81 k/uL (0-1.0); Myelocytes # (M) 1.56 k/uL (0); Myelocytes % 5 %; Neutrophils % (M) 43 %; Nucleated Red Blood Cells 0 /100 WBC (0-0); Promyelocytes # (M) 0.31 k/uL (0); Promyelocytes % 1 %; Total Cells Counted 200
[2019-09-28 11:10] LABS: Poikilocytosis (M) Present; Toxic Granulation Present
--- NOTE | 2019-09-28 12:51 | CT ---
EXAMINATION TYPE: CT biopsy bone deep DATE OF EXAM: 09/28/2019 COMPARISON: None HISTORY: Chronic leukemia recommendation for bone marrow biopsy CT DLP: 1750 mGycm The procedure is discussed with the patient, the risks, complications, benefits and alternatives, wer e discussed and any questions were answered. Informed consent was obtained. The patient is placed p [place] on the CT table, prepped and draped in the usual sterile fashion. Utilizing a 11-gauge needle access into the left ilium was achieved with marrow aspiration performed and core sample obtained. All elements of maximal barrier technique were utilized. The patient rem ained stable throughout the procedure with no immediate postprocedural complication. The Department of anesthesiology provided anesthesia. IMPRESSION: 1. Successful CT guided bone marrow biopsy of the left ilium.
[2019-09-28 17:16] VITALS: RESP 16
[2019-09-28 18:07] VITALS: BP 166/72; PULSE 68
== END 2019-09-28 12:37 | disposition home or self-care (01) ==
LOC: RADPROMAIN 08:54
PROVIDERS: ATTEND Internal Medicine Hematology & Oncology
DX: C92.10 Chronic myeloid leukemia, BCR/ABL-positive, not having achieved remission (principal); D64.9 Anemia, unspecified; I12.9 Hypertensive chronic kidney disease with stage 1 through stage 4 chronic kidney disease, or unspecified chronic kidney disease; E11.22 Type 2 diabetes mellitus with diabetic chronic kidney disease; N18.9 Chronic kidney disease, unspecified; E78.5 Hyperlipidemia, unspecified; J45.909 Unspecified asthma, uncomplicated; G47.33 Obstructive sleep apnea (adult) (pediatric); M10.9 Gout, unspecified; K21.9 Gastro-esophageal reflux disease without esophagitis; I25.2 Old myocardial infarction; E66.01 Morbid (severe) obesity due to excess calories; Z68.42 Body mass index [BMI] 45.0-49.9, adult; Z79.899 Other long term (current) drug therapy; Z79.4 Long term (current) use of insulin; Z79.51 Long term (current) use of inhaled steroids; Z86.19 Personal history of other infectious and parasitic diseases; Z90.49 Acquired absence of other specified parts of digestive tract; Z98.890 Other specified postprocedural states; Z91.048 Other nonmedicinal substance allergy status; Z87.891 Personal history of nicotine dependence; Z80.8 Family history of malignant neoplasm of other organs or systems; Z80.42 Family history of malignant neoplasm of prostate; Z82.49 Family history of ischemic heart disease and other diseases of the circulatory system
CPT/HCPCS: 38221; 82947; 85025; 85610; 85045; 36415; 77012; J2250; J3010; 20225

== ENCOUNTER 2019-10-03 18:54 | Emergency (ER) | payer MEDICARE, OTHER ==
[2019-10-03 18:58] VITALS: RESP 18; TEMP 97.8
[2019-10-03] MEDS ORDERED: PROPARACAINE 0.5% OPHTH DROPS 15 ML BTL LEFT EYE STA (19:18)
--- NOTE | 2019-10-03 19:29 | ED ---
Eye Problem HPI - General Chief complaint: Eye Problems Stated complaint: lt eye injury Time Seen by Provider: 10/03/19 19:00 Source: patient Mode of arrival: ambulatory Limitations: no limitations - History of Present Illness Initial comments: Patient is a 69-year-old male presenting to emergency Department with complaints of irritation of his left eye that started today. Patient states she was playing with his granddaughter when she accidentally scratched him in his left eye. Patient has been having clear drainage from the eye since the incident this morning. Patient is also complaining of swelling to his right eye that he noticed yesterday. Patient believes he may have a sty starting in the eye. Patient denies headache, blurry vision. Patient has no other complaints at this time. Upon arrival to the ER, vital signs are stable. - Related Data Home Medications Medication Instructions Recorded Confirmed Albuterol Sulfate [Proventil Hfa] 2 puff INHALATION RT-QID PRN 05/15/17 09/28/19 Atenolol [Tenormin] 25 mg PO DAILY 05/15/17 09/28/19 INSULIN ASPART (NovoLOG) [NovoLOG 25 unit SQ AC-TID 05/15/17 09/28/19 (formulary)] Insulin Glargine [Lantus] 120 unit SQ HS 05/15/17 09/28/19 Simvastatin [Zocor] 10 mg PO HS 05/15/17 09/28/19 cloNIDine HCL [Catapres] 0.2 mg PO TID 05/15/17 09/28/19 hydrALAZINE HCL [Apresoline] 100 mg PO TID 05/15/17 09/28/19 metFORMIN HCL [Glucophage] 500 mg PO BID-W/MEALS 05/15/17 09/28/19 Budesonide/Formoterol Fumarate 2 puff INHALATION BID 06/11/18 09/28/19 [Symbicort 80-4.5 Mcg Inhaler] Pantoprazole [Protonix] 40 mg PO DAILY 06/11/18 09/28/19 Acetaminophen Tab [Tylenol Tab] 650 mg PO BID 09/21/19 09/28/19 Allopurinol [Zyloprim] 100 mg PO DAILY 09/21/19 09/28/19 Bumetanide [Bumex] 1 mg PO DAILY 09/21/19 09/28/19 Ferrous Sulfate [Feosol] 325 mg PO DAILY 09/21/19 09/28/19 Losartan [Cozaar] 25 mg PO DAILY 09/21/19 09/28/19 Magnesium 200 mg PO DAILY 09/21/19 09/28/19 Previous Rx's Medication Instructions Recorded Erythromycin Ophth Oint [Romycin 1 applic BOTH EYES QID 5 Days #1 10/03/19 Ophth Oint] tube Allergies Allergy/AdvReac Type Severity Reaction Status Date / Time TIDE LAUNDRY SOAP Allergy Severe Rash/Hives Uncoded 10/03/19 18:55 Review of Systems ROS Statement: Those systems with pertinent positive or pertinent negative responses have been documented in the HPI. ROS Other: All systems not noted in ROS Statement are negative. Past Medical History Past Medical History: Asthma, Cancer, Diabetes Mellitus, GERD/Reflux, Hypertension, Osteoarthritis (OA), Sleep Apnea/CPAP/BIPAP Additional Past Medical History / Comment(s): home CPAP, gout, leukemia History of Any Multi-Drug Resistant Organisms: None Reported Past Surgical History: Cholecystectomy, Hernia Repair Additional Past Surgical History / Comment(s): booked for bone marrow biopsy to test for leukemia per pt Past Anesthesia/Blood Transfusion Reactions: No Reported Reaction Past Psychological History: No Psychological Hx Reported Smoking Status: Former smoker Past Alcohol Use History: None Reported Past Drug Use History: None Reported - Past Family History Father Family Medical History: Diabetes Mellitus General Exam - General Exam Comments Initial Comments: GENERAL: Well-appearing, well-nourished and in no acute distress. HEAD: Atraumatic, normocephalic. EYES: Pupils equal round and reactive to light, extraocular movements intact, sclera anicteric, conjunctiva are normal. Patient has a very mild superficial corneal abrasion to the left eye as well as a stye of the right eye, upper lid. ENT: TMs normal, nares patent, oropharynx clear without exudates. Moist mucous membranes. NECK: Normal range of motion, supple without lymphadenopathy or JVD. LUNGS: Breath sounds clear to auscultation bilaterally and equal. No wheezes rales or rhonchi. HEART: Regular rate and rhythm without murmurs, rubs or gallops. EXTREMITIES: Normal range of motion, no pitting or edema. No clubbing or cyanosis. NEUROLOGICAL: Normal speech, normal gait. PSYCH: Normal mood, normal affect. SKIN: Warm, Dry, normal turgor, no rashes or lesions noted. Limitations: no limitations Course Vital Signs 10/03/19 10/03/19 18:56 19:47 Temperature 97.8 F Pulse Rate 68 69 Respiratory 18 18 Rate Blood Pressure 197/74 177/62 O2 Sat by Pulse 98 95 Oximetry Medical Decision Making - Medical Decision Making Patient is a 69-year-old male presenting with a left mild corneal abrasion as well as a stye of the right eye, upper eyelid. Vitals are stable. Patient denies blurry vision headache. Patient will be started on antibiotic ointment to both eyes. Patient will follow-up with ophthalmology if symptoms persist after 3-5 days. Patient is stable for discharge at this time and he is in agreement with this plan of care. Return parameters were discussed with the patient he verbalizes understanding. Disposition Clinical Impression: Left corneal abrasion, Hordeolum externum right upper eyelid Disposition: HOME SELF-CARE Condition: Stable Instructions (If sedation given, give patient instructions): Corneal Abrasion (ED) Additional Instructions: Please return to the Emergency Department if symptoms worsen or any other concerns. Use antibiotic ointment as discussed. Follow-up with ophthalmology if symptoms persist after 3-5 days. Prescriptions: Erythromycin Ophth Oint [Romycin Ophth Oint] 1 applic BOTH EYES QID 5 Days #1 tube Is patient prescribed a controlled substance at d/c from ED?: No Referrals: Dwayne Castellano MD [Primary Care Provider] - 1-2 days
[2019-10-03 20:00] VITALS: BP 177/62; PULSE 69
== END 2019-10-03 19:47 | disposition home or self-care (01) ==
LOC: EC 18:54
DX: S05.02XA Injury of conjunctiva and corneal abrasion without foreign body, left eye, initial encounter (principal); H00.011 Hordeolum externum right upper eyelid; E11.9 Type 2 diabetes mellitus without complications; J45.909 Unspecified asthma, uncomplicated; I10 Essential (primary) hypertension; K21.9 Gastro-esophageal reflux disease without esophagitis; G47.30 Sleep apnea, unspecified; Z79.4 Long term (current) use of insulin; Z79.51 Long term (current) use of inhaled steroids; Z79.899 Other long term (current) drug therapy; Z91.048 Other nonmedicinal substance allergy status; Z87.891 Personal history of nicotine dependence; Z99.89 Dependence on other enabling machines and devices; W50.4XXA Accidental scratch by another person, initial encounter
CPT/HCPCS: 99282

== ENCOUNTER → 2019-10-08 | Outpatient (CLI) | payer OTHER ==
--- NOTE | 2019-10-08 19:00 | ECHOF ---
Referral Reason:C92.10 Leukemia Z01.818 Chemo exposure MEASUREMENTS -------- HEIGHT: 180.3 cm WEIGHT: 154.7 kg BP: IVSd: 1.5 cm (0.6 - 1.1) LVIDd: 4.5 cm (3.9 - 5.3) LVPWd: 1.6 cm (0.6 - 1.1) IVSs: 1.9 cm LVIDs: 3.5 cm LVPWs: 1.8 cm LA Diam: 4.8 cm (2.7 - 3.8) LAESV Index (A-L): 29.45 ml/m Ao Diam: 3.7 cm (2.0 - 3.7) AV Cusp: 1.9 cm (1.5 - 2.6) LA Diam: 4.5 cm (2.7 - 3.8) MV EXCURSION: 19.132 mm (> 18.000) MV EF SLOPE: 86 mm/s (70 - 150) EPSS: 0.4 cm MV E Arnel: 0.63 m/s MV DecT: 246 ms MV A Arnel: 0.89 m/s MV E/A Ratio: 0.71 RAP: 5.00 mmHg RVSP: 28.35 mmHg FINDINGS -------- Sinus rhythm. Morbid Obesity The left ventricular size is normal. There is moderate concentric left ventricular hypertrophy. O verall left ventricular systolic function is normal with, an EF between 60 - 65 %. The right ventricle is normal in size. The right atrial size is normal. The aortic valve is trileaflet, and appears structurally normal. No aortic stenosis or regurgitation. Mild mitral annular calcification present. Mild mitral regurgitation is present. Mild tricuspid regurgitation present. Right ventricular systolic pressure is normal at < 35 mmHg. There is no evidence of pulmonary hypertension. The pulmonic valve was not well visualized. The aortic root size is normal. Echo free space indicative of a pericardial fat pad. CONCLUSIONS -------- 1. Sinus rhythm. 2. Morbid Obesity 3. The left ventricular size is normal. 4. There is moderate concentric left ventricular hypertrophy. 5. Overall left ventricular systolic function is normal with, an EF between 60 - 65 %. 6. The right ventricle is normal in size. 7. The right atrial size is normal. 8. The aortic valve is trileaflet, and appears structurally normal. No aortic stenosis or regurgitati on. 9. Mild mitral annular calcification present. 10. Mild mitral regurgitation is present. 11. Mild tricuspid regurgitation present. 12. Right ventricular systolic pressure is normal at < 35 mmHg. 13. There is no evidence of pulmonary hypertension. 14. The pulmonic valve was not well visualized. 15. The aortic root size is normal. 16. Echo free space indicative of a pericardial fat pad. [employer]OVING WEIGHT GAUGER: Fatou Cooley RDCS
== END ==
LOC: RADECHMAIN 12:49
PROVIDERS: ATTEND Internal Medicine Hematology & Oncology
DX: I08.1 Rheumatic disorders of both mitral and tricuspid valves (principal); E66.01 Morbid (severe) obesity due to excess calories; C92.10 Chronic myeloid leukemia, BCR/ABL-positive, not having achieved remission
CPT/HCPCS: 93306

== ENCOUNTER 2019-10-31 04:20 | Inpatient (IN) | payer OTHER, MEDICARE ==
[2019-10-31 04:25] LABS: Glucose,Whole Blood 95 mg/dL (75-99)
--- NOTE | 2019-10-31 04:45 | ED ---
Recheck HPI - General Chief Complaint: Recheck/Abnormal Lab/Rx Stated Complaint: diabetic issue Time Seen by Provider: 10/31/19 04:31 Source: patient Mode of arrival: ambulatory Limitations: no limitations - History of Present Illness Initial Comments: This patient is 69-year-old man with history of diabetes, brought by animal is to be evaluated after he was found with low blood sugar. The patient's noted that he did gotten up from bed this morning to use the bathroom. She made note that he walked past there usual bathroom to the far bathroom and the home. She checked him and he was disoriented and confused. He was sweaty and not able to converse with her. She phoned EMS who found him to have a blood sugar in the 40s. They were not able to get him to take oral source of dextrose so they did provide IV and D10 solution. The patient did become alert and more appropriate. On the review of systems, he does note he has had proximally 3 weeks of cough with some occasional sputum. Also some upper congestion. The patient denies other symptoms on review of systems. MD Complaint: abnormal lab Onset/Timin -: hour(s) Returns Today for: other - Related Data Home Medications Medication Instructions Recorded Confirmed Albuterol Sulfate [Proventil Hfa] 2 puff INHALATION RT-QID PRN 05/15/17 09/28/19 Atenolol [Tenormin] 25 mg PO DAILY 05/15/17 09/28/19 INSULIN ASPART (NovoLOG) [NovoLOG 25 unit SQ AC-TID 05/15/17 09/28/19 (formulary)] Insulin Glargine [Lantus] 120 unit SQ HS 05/15/17 09/28/19 Simvastatin [Zocor] 10 mg PO HS 05/15/17 09/28/19 cloNIDine HCL [Catapres] 0.2 mg PO TID 05/15/17 09/28/19 hydrALAZINE HCL [Apresoline] 100 mg PO TID 05/15/17 09/28/19 metFORMIN HCL [Glucophage] 500 mg PO BID-W/MEALS 05/15/17 09/28/19 Budesonide/Formoterol Fumarate 2 puff INHALATION BID 06/11/18 09/28/19 [Symbicort 80-4.5 Mcg Inhaler] Pantoprazole [Protonix] 40 mg PO DAILY 06/11/18 09/28/19 Acetaminophen Tab [Tylenol Tab] 650 mg PO BID 09/21/19 09/28/19 Allopurinol [Zyloprim] 100 mg PO DAILY 09/21/19 09/28/19 Bumetanide [Bumex] 1 mg PO DAILY 09/21/19 09/28/19 Ferrous Sulfate [Feosol] 325 mg PO DAILY 09/21/19 09/28/19 Losartan [Cozaar] 25 mg PO DAILY 09/21/19 09/28/19 Magnesium 200 mg PO DAILY 09/21/19 09/28/19 Previous Rx's Medication Instructions Recorded Erythromycin Ophth Oint [Romycin 1 applic BOTH EYES QID 5 Days #1 10/03/19 Ophth Oint] tube Allergies Allergy/AdvReac Type Severity Reaction Status Date / Time TIDE LAUNDRY SOAP Allergy Severe Rash/Hives Uncoded 10/03/19 18:55 Review of Systems ROS Statement: Those systems with pertinent positive or pertinent negative responses have been documented in the HPI. ROS Other: All systems not noted in ROS Statement are negative. Constitutional: Denies: fever, chills Respiratory: Reports: as per HPI, cough. Denies: dyspnea, hemoptysis Cardiovascular: Denies: chest pain, palpitations, syncope Gastrointestinal: Denies: abdominal pain, vomiting, diarrhea Genitourinary: Denies: dysuria, hematuria Musculoskeletal: Reports: back pain (Patient indicates pain over the sacrum following bone marrow biopsy one month ago) Skin: Denies: rash Neurological: Reports: as per HPI, confusion. Denies: headache, weakness, numbness Past Medical History Past Medical History: Asthma, Cancer, Diabetes Mellitus, GERD/Reflux, Hype rtension, Osteoarthritis (OA), Sleep Apnea/CPAP/BIPAP Additional Past Medical History / Comment(s): home CPAP, gout, leukemia History of Any Multi-Drug Resistant Organisms: None Reported Past Surgical History: Cholecystectomy, Hernia Repair Additional Past Surgical History / Comment(s): booked for bone marrow biopsy to test for leukemia per pt Past Anesthesia/Blood Transfusion Reactions: No Reported Reaction Past Psychological History: No Psychological Hx Reported Smoking Status: Former smoker Past Alcohol Use History: None Reported Past Drug Use History: None Reported - Past Family History Father Family Medical History: Diabetes Mellitus General Exam Limitations: no limitations General appearance: alert, in no apparent distress Head exam: Present: atraumatic Eye exam: Present: normal appearance, EOMI. Absent: scleral icterus, conjunctival injection ENT exam: Present: normal oropharynx Neck exam: Present: normal inspection Respiratory exam: Present: normal lung sounds bilaterally, other (Frequent nonproductive cough during exam). Absent: respiratory distress, wheezes, rales, rhonchi, stridor Cardiovascular Exam: Present: regular rate, normal rhythm, normal heart sounds. Absent: systolic murmur, diastolic murmur, rubs, gallop GI/Abdominal exam: Present: soft. Absent: distended, tenderness, guarding, rebound Extremities exam: Present: normal inspection, normal capillary refill. Absent: pedal edema, calf tenderness Back exam: Present: normal inspection, other (Examination of the biopsy site reveals healed puncture wound with no abnormal erythema, warmth, drainage. No marked tenderness.). Absent: CVA tenderness (R), CVA tenderness (L) Neurological exam: Present: alert, oriented X3. Absent: motor sensory deficit Skin exam: Present: warm, dry, intact, normal color. Absent: rash Course Vital Signs 10/31/19 10/31/19 10/31/19 04:23 05:47 06:42 Temperature 97.5 F L 97.5 F L Pulse Rate 81 64 60 Respiratory 18 18 18 Rate Blood Pressure 174/71 140/60 137/68 O2 Sat by Pulse 99 100 99 Oximetry Medical Decision Making - Lab Data Result diagrams: 10/31/19 04:50 10/31/19 04:50 Lab Results 10/31/19 10/31/19 10/31/19 Range/Units 04:24 04:50 04:50 WBC 3.9 (3.8-10.6) k/uL RBC 3.16 L (4.30-5.90) m/uL Hgb 9.9 L D (13.0-17.5) gm/dL Hct 31.0 L (39.0-53.0) % MCV 98.3 (80.0-100.0) fL MCH 31.3 (25.0-35.0) pg MCHC 31.8 (31.0-37.0) g/dL RDW 15.4 (11.5-15.5) % Plt Count 99 L D (150-450) k/uL Neutrophils % 76 % Lymphocytes % 15 % Monocytes % 5 % Eosinophils % 3 % Basophils % 0 % Neutrophils # 2.9 (1.3-7.7) k/uL Lymphocytes # 0.6 L (1.0-4.8) k/uL Monocytes # 0.2 (0-1.0) k/uL Eosinophils # 0.1 (0-0.7) k/uL Basophils # 0.0 (0-0.2) k/uL Macrocytosis Slight Sodium 141 (137-145) mmol/L Potassium 4.8 (3.5-5.1) mmol/L Chloride 111 H (98-107) mmol/L Carbon Dioxide 22 (22-30) mmol/L Anion Gap 8 mmol/L BUN 51 H (9-20) mg/dL Creatinine 2.42 H (0.66-1.25) mg/dL Est GFR (CKD-EPI)AfAm 30 (>60 ml/min/1.73 sqM) Est GFR (CKD-EPI)NonAf 26 (>60 ml/min/1.73 sqM) Glucose 90 (74-99) mg/dL POC Glucose (mg/dL) 95 (75-99) mg/dL POC Glu Linesperson CAMILA Kelly Bardales Calcium 9.4 (8.4-10.2) mg/dL Total Bilirubin 0.4 (0.2-1.3) mg/dL AST 32 (17-59) U/L ALT 20 (4-49) U/L Alkaline Phosphatase 110 (38-126) U/L Troponin I (0.000-0.034) ng/mL Total Protein 6.5 (6.3-8.2) g/dL Albumin 3.5 (3.5-5.0) g/dL Influenza Type A RNA (Not Detectd) Influenza Type B (PCR) (Not Detectd) 10/31/19 10/31/19 Range/Units 04:50 04:50 WBC (3.8-10.6) k/uL RBC (4.30-5.90) m/uL Hgb (13.0-17.5) gm/dL Hct (39.0-53.0) % MCV (80.0-100.0) fL MCH (25.0-35.0) pg MCHC (31.0-37.0) g/dL RDW (11.5-15.5) % Plt Count (150-450) k/uL Neutrophils % % Lymphocytes % % Monocytes % % Eosinophils % % Basophils % % Neutrophils # (1.3-7.7) k/uL Lymphocytes # (1.0-4.8) k/uL Monocytes # (0-1.0) k/uL Eosinophils # (0-0.7) k/uL Basophils # (0-0.2) k/uL Macrocytosis Sodium (137-145) mmol/L Potassium (3.5-5.1) mmol/L Chloride (98-107) mmol/L Carbon Dioxide (22-30) mmol/L Anion Gap mmol/L BUN (9-20) mg/dL Creatinine (0.66-1.25) mg/dL Est GFR (CKD-EPI)AfAm (>60 ml/min/1.73 sqM) Est GFR (CKD-EPI)NonAf (>60 ml/min/1.73 sqM) Glucose (74-99) mg/dL POC Glucose (mg/dL) (75-99) mg/dL POC Glu Linesperson ID Calcium (8.4-10.2) mg/dL Total Bilirubin (0.2-1.3) mg/dL AST (17-59) U/L ALT (4-49) U/L Alkaline Phosphatase (38-126) U/L Troponin I 0.012 (0.000-0.034) ng/mL Total Protein (6.3-8.2) g/dL Albumin (3.5-5.0) g/dL Influenza Type A RNA Not Detected (Not Detectd) Influenza Type B (PCR) Not Detected (Not Detectd) - EKG Data -: EKG Interpreted by Me EKG shows normal: sinus rhythm (With sinus arrhythmia), axis (Normal), intervals (Normal), QRS complexes (Normal), ST-T waves (Normal) Rate: normal (Rate 66 bpm) Disposition Clinical Impression: Hypoglycemia, Acute kidney injury Narrative: Suspected pneumonia Disposition: ADMITTED IP TO THIS HOSP Condition: Fair Is patient prescribed a controlled substance at d/c from ED?: No Referrals: Dwayne Castellano MD [Primary Care Provider] - 1-2 days
[2019-10-31 05:07] LABS: Basophils % (A) 0 %; Eosinophils # (A) 0.1 k/uL (0-0.7); Eosinophils % (A) 3 %; Lymphocytes # (A) 0.6 k/uL (1.0-4.8); Lymphocytes % (A) 15 %; MCH 31.3 pg (25.0-35.0); MCHC 31.8 g/dL (31.0-37.0); MCV 98.3 fL (80.0-100.0); Macrocytosis Slight; Mean Platelet Volume 8.4; Monocytes # (A) 0.2 k/uL (0-1.0); Monocytes % (A) 5 %; Neutrophils # (A) 2.9 k/uL (1.3-7.7); Neutrophils % (A) 76 %; RBC 3.16 m/uL (4.30-5.90); RDW 15.4 % (11.5-15.5); WBC 3.9 k/uL (3.8-10.6)
[2019-10-31 05:20] LABS: Albumin 3.5 g/dL (3.5-5.0); Calcium 9.4 mg/dL (8.4-10.2); Potassium 4.8 mmol/L (3.5-5.1); Total Bilirubin 0.4 mg/dL (0.2-1.3); Total Protein 6.5 g/dL (6.3-8.2)
[2019-10-31 05:35] LABS: HGB 9.9 gm/dL (13.0-17.5); Platelet Count 99 k/uL (150-450)
[2019-10-31] MEDS ORDERED: SODIUM CHLORIDE 0.9% 1,000 ML IV ONE (06:14)
--- NOTE | 2019-10-31 06:53 | XR ---
EXAM: XR Chest, 1 View CLINICAL HISTORY: ITS.REASON XR Reason: altered mental status TECHNIQUE: Frontal view of the chest. COMPARISON: 06/11/18 FINDINGS: Lungs: Low lung volumes with bilateral atelectasis or infiltrate. Pleural space: No significant pleural effusion or pneumothorax. Heart: Likely stable cardiomediastinal silhouette. Mediastinum: Prominent hilar opacities. Bones/joints: No acute fracture. IMPRESSION: Low lung volumes with bilateral atelectasis or infiltrate. Prominent hilar opacities.
[2019-10-31] MEDS ORDERED: PNEUMONIA PROTOCOL UTILIZED 1 EACH MISC PO PRN (06:55)
--- NOTE | 2019-10-31 09:40 | P.CONS ---
<Rabia Waddell - Last Filed: 10/31/19 09:25> History of Present Illness - Reason for Consult Consult date: 10/31/19 Pneumonia - History of Present Illness This is a 69-year-old male patient of Dr. 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 Patient underwent a bone marrow biopsy on September 28 and subsequently started on oral chemotherapy. Patient has had a weight loss of 40 pounds since May 2019 with decreased appetite. The patient apparently got up during the night and wondered to the bathroom at the end of the house, is concerned that he was disoriented confused. Blood sugar was checked and it was 46. EMS had been called and patient was given D10 with improvement of his mental status. Patient also complains of a cough for 3 weeks with clear sputum production. He denies having any fever or chills. He denies any true muscle aches but has had pain around the bone marrow site since the biopsy was done. He states he had diarrhea last evening which has resolved. In the emergency center, patient was found to be afebrile, heart rate 81, blood pressure 174/71, pulse ox 99% on room air. WBC 3.9, hemoglobin 9.9, platelet count 99, BUN 51 and creatinine 2.42 and appears his baseline is 1.5 creatinine. Chest x-ray showed low lung volume with bilateral atelectasis or infiltrate. Prominent hilar opacities. Patient has been started on azithromycin and Rocephin and is waiting for a bed on the [facility] floor. Patient is seen in the ER today. Review of Systems Constitutional: Reports poor appetite, Denies chills, Denies fatigue, Denies fever Ears, nose, mouth and throat: Denies dental pain, Denies nasal congestion, Denies nasal discharge, Denies vertigo Cardiovascular: Reports shortness of breath, Denies chest pain, Denies leg edema, Denies syncope Respiratory: Reports cough, Reports cough with sputum, Reports dyspnea, Reports respiratory infections, Reports sleep apnea, Denies excessive sputum, Denies hemoptysis, Denies home oxygen, Denies wheezing Gastrointestinal: Reports diarrhea, Reports loss of appetite, Denies abdominal pain, Denies nausea, Denies vomiting Genitourinary: Denies flank pain, Denies urinary frequency, Denies urinary retention Musculoskeletal: Denies gait dysfunction, Denies muscle weakness, Denies myalgias Integumentary: Denies pruritus, Denies rash, Denies wounds Neurological: Reports change in mentation, Denies change in speech, Denies numbness, Denies seizures, Denies weakness Psychiatric: Denies anxiety, Denies depression Endocrine: Denies fatigue, Denies weight change Past Medical History Past Medical History: Asthma, Cancer, Diabetes Mellitus, GERD/Reflux, Hypertension, Osteoarthritis (OA), Sleep Apnea/CPAP/BIPAP Additional Past Medical History / Comment(s): home CPAP, gout, CML History of Any Multi-Drug Resistant Organisms: None Reported Past Surgical History: Cholecystectomy, Hernia Repair Additional Past Surgical History / Comment(s): bone marrow biopsy Past Anesthesia/Blood Transfusion Reactions: No Reported Reaction Past Psychological History: No Psychological Hx Reported Smoking Status: Never smoker Past Alcohol Use History: None Reported Additional Past Alcohol Use History / Comment(s): The patient is a lifelong nonsmoker, no marijuana use, illicit drug use, rare alcohol use. Patient was at home with his . There are no pets in the home. He uses CPAP machine. Past Drug Use History: None Reported - Past Family History Father Family Medical History: Diabetes Mellitus Medications and Allergies Home Medications Medication Instructions Recorded Confirmed Type Atenolol [Tenormin] 25 mg PO DAILY 05/15/17 10/31/19 History INSULIN ASPART (NovoLOG) [NovoLOG See Protocol SQ AC-TID 05/15/17 10/31/19 History (formulary)] Insulin Glargine [Lantus] 100 unit SQ HS 05/15/17 10/31/19 History Simvastatin [Zocor] 10 mg PO W/SUPPER 05/15/17 10/31/19 History cloNIDine HCL [Catapres] 0.2 mg PO BID 05/15/17 10/31/19 History hydrALAZINE HCL [Apresoline] 100 mg PO TID 05/15/17 10/31/19 History Budesonide/Formoterol Fumarate 2 puff INHALATION RT-BID 06/11/18 10/31/19 History [Symbicort 80-4.5 Mcg Inhaler] Pantoprazole [Protonix] 40 mg PO DAILY 06/11/18 10/31/19 History Allopurinol [Zyloprim] 100 mg PO DAILY 09/21/19 10/31/19 History Bumetanide [Bumex] 1 mg PO DAILY 09/21/19 10/31/19 History Ferrous Sulfate [Feosol] 325 mg PO PC-TID 09/21/19 10/31/19 History Losartan [Cozaar] 25 mg PO DAILY 09/21/19 10/31/19 History Allopurinol [Zyloprim] 200 mg PO W/SUPPER 10/31/19 10/31/19 History Aspirin EC [Ecotrin Low Dose] 162 mg PO DAILY 10/31/19 10/31/19 History Ergocalciferol [Vitamin D2] 50,000 unit PO QMONTH 10/31/19 10/31/19 History Imatinib Mesylate [Gleevec] 400 mg PO PC-SUPPER 10/31/19 10/31/19 History Lidocaine [Lidoderm 5% Patch] 1 patch TRANSDERM DAILY PRN 10/31/19 10/31/19 History Magnesium Oxide [Mag-Ox] 400 mg PO DAILY 10/31/19 10/31/19 History metFORMIN HCL [Glucophage] 500 mg PO AC-BID 10/31/19 10/31/19 History Allergies Allergy/AdvReac Type Severity Reaction Status Date / Time lisinopril Allergy Unknown Verified 10/31/19 10:23 TIDE LAUNDRY SOAP Allergy Severe Rash/Hives Uncoded 10/31/19 10:07 Physical Exam Vitals: Vital Signs Temp Pulse Resp BP Pulse Ox 10/31/19 06:42 60 18 137/68 99 10/31/19 05:47 97.5 F L 64 18 140/60 100 10/31/19 04:23 97.5 F L 81 18 174/71 99 Intake and Output 10/30/19 10/31/19 10/31/19 22:59 06:59 14:59 Other: Weight 156.489 kg Gen: This is a 69-year-old morbidly obese male. She is resting in the ER stretcher and appears to be comfortable in no acute distress. Frequent coughing is noted. HEENT: Head is atraumatic, normocephalic. Pupils equal, round. Sclerae is anicteric. Oral mucous membranes are moist. No thrush noted. NECK: Supple. No JVD. No lymphadenopathy. No thyromegaly. LUNGS: Diminished bilaterally. No wheezes or rhonchi. No intercostal retractions. HEART: Regular rate and rhythm. No murmur. monitoring analyst is in normal sinus rhythm. ABDOMEN: Soft. Bowel sounds are present. No masses. No tenderness. EXTREMITIES: 1+ bilateral pedal edema. No calf tenderness. Dorsalis pedis 1+ bilaterally. NEUROLOGICAL: Patient is awake, alert and oriented x3. Cranial nerves 2 through 12 are grossly intact. Results CBC & Chem 7: 10/31/19 04:50 10/31/19 04:50 Labs: Abnormal Lab Results - Last 24 Hours (Table) 10/31/19 10/31/19 Range/Units 04:50 04:50 RBC 3.16 L (4.30-5.90) m/uL Hgb 9.9 L D (13.0-17.5) gm/dL Hct 31.0 L (39.0-53.0) % Plt Count 99 L D (150-450) k/uL Lymphocytes # 0.6 L (1.0-4.8) k/uL Chloride 111 H (98-107) mmol/L BUN 51 H (9-20) mg/dL Creatinine 2.42 H (0.66-1.25) mg/dL Assessment and Plan Plan: This is a 69-year-old male patient who presented to hospital due to hypoglycemia most likely secondary to recent weight loss and patient is maintaining his same dose of insulin. Patient also presented with bronchitis, possible bilateral pneumonia, bronchitis. He has been started on azithromycin and ceftriaxone. There is a consult in place with Dr. Kidd for CML. Incentive spirometry will be added. Blood culture in progress. Urine culture is to be obtained. Continue supportive care. Further recommendations as patient progresses. The above dictated assessment and findings were discussed with Dr. Valenzuela. The impression and plan of care have been directed as dictated. Rabia Waddell nurse practitioner acting as scribe for Dr. Valenzuela. <Adis Valenzuela - Last Filed: 10/31/19 22:17> Physical Exam Vitals: Vital Signs Temp Pulse Pulse Pulse Resp BP BP 10/31/19 20:12 10/31/19 19:34 97.7 F 71 16 157/66 10/31/19 17:52 10/31/19 14:42 97.6 F 69 16 161/81 10/31/19 13:41 97.3 F L 71 20 155/70 10/31/19 10:11 10/31/19 06:42 60 18 137/68 10/31/19 05:47 97.5 F L 64 18 140/60 10/31/19 04:23 97.5 F L 81 18 174/71 Pulse Ox 10/31/19 20:12 98 10/31/19 19:34 99 10/31/19 17:52 97 10/31/19 14:42 100 10/31/19 13:41 10/31/19 10:11 99 10/31/19 06:42 99 10/31/19 05:47 100 10/31/19 04:23 99 Intake and Output 10/31/19 10/31/19 10/31/19 06:59 14:59 22:59 Intake Total 1899 125 Balance 1899 125 Intake: Intake, IV Titration 1049 Amount Sodium Chloride 0.9% 1, 999 000 ml @ 999 mls/hr IV . Q1H1M ONE Rx#:[id number] cefTRIAXone 1 gm In 50 Sodium Chloride 0.9% 50 ml @ 100 mls/hr IVPB Q24HR SAM Rx#:[id number] Oral 850 125 Other: # Voids 2 Weight 156.489 kg 156.489 kg Results CBC & Chem 7: 10/31/19 04:50 10/31/19 04:50 Labs: Abnormal Lab Results - Last 24 Hours (Table) 10/31/19 10/31/19 10/31/19 Range/Units 04:50 04:50 09:54 RBC 3.16 L (4.30-5.90) m/uL Hgb 9.9 L D (13.0-17.5) gm/dL Hct 31.0 L (39.0-53.0) % Plt Count 99 L D (150-450) k/uL Lymphocytes # 0.6 L (1.0-4.8) k/uL Chloride 111 H (98-107) mmol/L BUN 51 H (9-20) mg/dL Creatinine 2.42 H (0.66-1.25) mg/dL POC Glucose (mg/dL) 469 H (75-99) mg/dL Ur Leukocyte Esterase (Negative) Urine Bacteria (None) /hpf Urine Mucus (None) /hpf 10/31/19 10/31/19 10/31/19 Range/Units 09:57 13:16 15:03 RBC (4.30-5.90) m/uL Hgb (13.0-17.5) gm/dL Hct (39.0-53.0) % Plt Count (150-450) k/uL Lymphocytes # (1.0-4.8) k/uL Chloride (98-107) mmol/L BUN (9-20) mg/dL Creatinine (0.66-1.25) mg/dL POC Glucose (mg/dL) 223 H 115 H (75-99) mg/dL Ur Leukocyte Esterase Small H (Negative) Urine Bacteria Few H (None) /hpf Urine Mucus Rare H (None) /hpf 10/31/19 Range/Units 16:47 RBC (4.30-5.90) m/uL Hgb (13.0-17.5) gm/dL Hct (39.0-53.0) % Plt Count (150-450) k/uL Lymphocytes # (1.0-4.8) k/uL Chloride (98-107) mmol/L BUN (9-20) mg/dL Creatinine (0.66-1.25) mg/dL POC Glucose (mg/dL) 135 H (75-99) mg/dL Ur Leukocyte Esterase (Negative) Urine Bacteria (None) /hpf Urine Mucus (None) /hpf Assessment and Plan Plan: Patient was seen and examined andpatient note was reviewed and agreed. Patient is 69-year-old male with recent diagnosis of CML for the patient has been started on oral chemotherapy admitted to hospital with low blood sugar mental status changes patient also gives a history of cough that is been going on for more than a week now mild with some clear sputum chest x-ray did show slight abnormality with concern for possible pneumonia likely community-acquired with clinical suspicion low for underlying gram-negative or pneumonia of aspiration etiology. We will try to obtain a sputum for Gram stain and culture Patient to continue with Rocephin and Zithromax We will follow on clinical condition and cultures to further adjust medication if needed Thank you for this consultation we will follow the patient along with you Time with Patient: Greater than 30
[2019-10-31 09:59] LABS: Glucose,Whole Blood 223 mg/dL (75-99)
[2019-10-31 09:59] LABS: Glucose,Whole Blood 469 mg/dL (75-99)
[2019-10-31] MEDS: AZITHROMYCIN 500 MG TAB PO SCH (10:37)
[2019-10-31] MEDS: SODIUM CHLORIDE 0.9% 1,000 ML IV SCH (10:39)
[2019-10-31] MEDS: FERROUS SULFATE 325 MG TAB PO SCH ×2 (12:12→17:43)
[2019-10-31 13:18] LABS: Glucose,Whole Blood 115 mg/dL (75-99)
[2019-10-31 14:43] VITALS: RESP 16
[2019-10-31 15:23] LABS: Appearance,Urine Clear (Clear); Bacteria,Urine Few /hpf; Bilirubin,Urine Negative (Negative); Blood,Urine Negative (Negative); Color,Urine Yellow; Glucose,Urine (UA) Negative (Negative); Hyaline Casts,Urine 1 /lpf (0-2); Ketones,Urine Negative (Negative); Leukocyte Esterase,Urine Small (Negative); Mucus,Urine Rare /hpf; Nitrite,Urine Positive (Negative); Protein,Urine Negative (Negative); Specific Gravity,Urine 1.014 (1.001-1.035); Urobilinogen,Urine <2.0 mg/dL (<2.0); WBC,Urine 3 /hpf (0-5)
[2019-10-31 16:49] LABS: Glucose,Whole Blood 135 mg/dL (75-99)
[2019-10-31] MEDS ORDERED: ATORVASTATIN 10 MG TAB PO SCH (17:30)
[2019-10-31] MEDS ORDERED: ALLOPURINOL 100 MG TAB PO SCH (17:30)
[2019-10-31] MEDS: hydrALAZINE HCL 50 MG TAB PO SCH ×2 (17:42→19:51)
[2019-10-31] MEDS ORDERED: IMATINIB MESYLATE 400 MG PO SCH (18:30)
[2019-10-31] MEDS ORDERED: GLEEVEC 100 MG PO SCH (18:30)
--- NOTE | 2019-10-31 18:42 | HP ---
HISTORY AND PHYSICAL CHIEF COMPLAINT: Confusion and hypoglycemia. HISTORY OF PRESENT ILLNESS: This is another admission for this 69-year-old year obese white male with diabetes. Several months ago his white count elevated and he has been identified as having chronic myelogenous leukemia and has been placed on Gleevec by Oncology. He has been doing fairly well, but he has been losing weight. His sugars have been under good control. He had an episode the night of his admission when he became confused and was inappropriate and family summoned an ambulance and brought him in. He was given glucose in the ambulance and became more alert and responsive. He denies any chest pains, focal neurologic deficits, etc. REVIEW OF SYSTEMS: He has had no other complaints, including cough, fever, chills, abdominal pain, vomiting, diarrhea, melena, renal failure, dysuria, etc. Past medical history, family history and personal and social histories are otherwise unremarkable and noncontributory. He is ALLERGIC to [employer], which cause a cough. He has been on: 1. Vicodin p.r.n. 2. Gleevec. 3. Atenolol 25 once a day. 4. Cozaar 25 once a day. 5. Pantoprazole 20 mg once a day. 6. NovoLog 28 units in the morning, 20 at noon and 20 at night. 7. Metformin 500 mg twice a day. 8. Magnesium 400 mg once a day. 9. Lantus 110 units once a day. 10.Hydralazine 100 mg t.i.d. 11.ProAir 2 puffs 4 times a day p.r.n. 12.Vitamin D3. 13.Catapres 0.2 twice a day. 14.Cardura 1 mg once a day. 15.Bumex 1 mg once a day. 16.Zocor 20 mg at bedtime. Remainder of his history is unremarkable. He does not smoke or drink. PHYSICAL EXAMINATION: Blood pressure is 140/80, pulse 58, respiratory rate 16, and he is afebrile. In general he appeared to be obese and in no acute distress. He was awake and alert and oriented. Skin color was normal. Skin was warm and dry. Lymph nodes were not enlarged. Head, ears, eyes, nose, mouth and throat were normal. Neck veins were not distended. Thyroid was not enlarged. Chest was clear. Cardiac exam was normal. The abdomen was soft, nontender. Extremities were normal. Neurologically he was intact. ADMITTING DIAGNOSES: 1. Hypoglycemia. 2. Hypertension. 3. Type 2 [id number] diabetes mellitus. 4. Chronic myelogenous leukemia. PLAN: 1. Bed rest. 2. IV fluids. 3. Cut insulin dose. 4. Consult with Oncology. HEBERT / ETHEL: [id number] /
[2019-10-31] MEDS: cloNIDine HCL 0.2 MG TAB PO SCH (19:51)
[2019-10-31] MEDS: SYMBICORT 80-4.5 MCG INHALER INHALATION SCH (20:11)
[2019-10-31 23:10] LABS: Glucose,Whole Blood 178 mg/dL (75-99)
[2019-11-01 07:04] LABS: Glucose,Whole Blood 70 mg/dL (75-99)
[2019-11-01] MEDS: SODIUM CHLORIDE 0.9% 1,000 ML IV SCH (07:06)
[2019-11-01] MEDS ORDERED: PANTOPRAZOLE 40 MG TABLET PO SCH (07:30)
--- NOTE | 2019-11-01 07:55 | XR ---
EXAMINATION TYPE: XR chest 2V DATE OF EXAM: 11/01/2019 COMPARISON: Chest x-ray from one day earlier and older studies. HISTORY: Pneumonia, abnormal x-ray. TECHNIQUE: Frontal and lateral views of the chest are obtained. FINDINGS: Low lung volumes redemonstrated. There is chronic parenchymal change without suspicious new focal air space opacity, pleural effusion, or pneumothorax seen. The cardiac silhouette size remain s enlarged. Multilevel spurring in thoracic spine. Cholecystectomy clips are noted. Old fracture defo rmity posterolateral right fourth and fifth ribs is redemonstrated. IMPRESSION: Cardiomegaly and chronic parenchymal changes with low lung volumes and patchy bibasilar atelectasis and/or infiltrates felt present.
[2019-11-01] MEDS: SYMBICORT 80-4.5 MCG INHALER INHALATION SCH (08:07)
[2019-11-01] MEDS: FERROUS SULFATE 325 MG TAB PO SCH (08:11)
[2019-11-01] MEDS: AZITHROMYCIN 500 MG TAB PO SCH (08:12)
[2019-11-01] MEDS: cloNIDine HCL 0.2 MG TAB PO SCH (08:13)
[2019-11-01] MEDS: hydrALAZINE HCL 50 MG TAB PO SCH (08:13)
[2019-11-01 08:23] VITALS: BP 172/70; PULSE 66; TEMP 97.6
[2019-11-01] MEDS ORDERED: LOSARTAN 25 MG TAB PO SCH (09:00)
[2019-11-01] MEDS ORDERED: ASPIRIN 81 MG PO SCH (09:00)
[2019-11-01] MEDS ORDERED: ALLOPURINOL 100 MG TAB PO SCH (09:00)
[2019-11-01] MEDS ORDERED: BUMETANIDE 1 MG TAB PO SCH (09:00)
[2019-11-01] MEDS ORDERED: MAGNESIUM OXIDE 400 MG TAB PO SCH (09:00)
[2019-11-01] MEDS ORDERED: ATENOLOL 25 MG TAB PO SCH (09:00)
--- NOTE | 2019-11-01 11:38 | DS ---
DISCHARGE SUMMARY CHIEF COMPLAINT: Confusion, delirium, hypoglycemia. HISTORY OF PRESENT ILLNESS AND PHYSICAL EXAM: Details of this man's history and physical can be found in the initial workup. LABORATORY STUDIES: While he was in the hospital he had laboratory studies, details of which can be found in the laboratory section of his chart. COURSE IN THE HOSPITAL: After admission, he was placed on bedrest, started on intravenous fluids and blood sugars came up. Insulin was withheld. He is doing well. It was felt that he could go home the following day on the and he will go home without any insulin and to follow up in a day or 2 in the office. FINAL DIAGNOSES: 1. Hypoglycemia. 2. Type 2 insulin-dependent diabetes mellitus. 3. Chronic myelogenous leukemia. 4. Obesity. 5. Hypertension. OPERATIONS: None. CONSULTATION: Oncology. He is improved. MMLIZL / ETHEL: [id number] /
--- NOTE | 2019-11-01 13:16 | PN ---
PROGRESS NOTE DATE OF SERVICE: 11/01/2019 REASON FOR FOLLOWUP VISIT: Possible pneumonia. INTERVAL HISTORY: The patient was seen on rounds this morning. The patient overall is feeling better. Patient denies having any chest pain, no shortness of breath or cough. No nausea, no vomiting. No abdominal pain, no diarrhea. PHYSICAL EXAMINATION: Blood pressure is 172/78 with a pulse of 66, temperature 97.6, He is 97% on room air. General description is an elderly male up in in the chair in no distress. RESPIRATORY SYSTEM: Unlabored breathing, some decreased breath sounds at the bases. No wheeze. HEART: S1, S2. Regular rate and rhythm. ABDOMEN: Soft, no tenderness. LABS: No new labs have been obtained today. . Sputum culture currently pending. DIAGNOSTIC IMPRESSION AND PLAN: The patient admitted to the hospital with hypoglycemic episode and concern for possible pneumonia with x-ray showing bibasilar infiltrate. Patient with minimal cough. we have got it covered with Rocephin and Zithromax to continue while waiting for the sputum culture to finalize. Continue with supportive care. MMODL / IJN: [id number] /
--- NOTE | 2019-11-01 23:13 | P.CONS ---
History of Present Illness - Reason for Consult Consult date: 11/01/19 Hypoglycemia, CML on Gleevec - History of Present Illness The patient is a 69-year-old white male well known to our service. He is followed by Dr. Kidd in the outpatient setting. The patient was evaluated in [facility] 10/11 when he presented with increased WBC in the 30,000 range with marked left shift. 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 The patient was then started on Gleevec The patient has a history of diabetes and is on insulin. He was brought to the hospital as he appeared to be confused on getting up at night. Blood sugar was 46. He gave a history of chest congestion and cough productive of whitish and occasionally yellowish sputum over the past 2-3 weeks. He denied any fever or chills. As x-ray showed some bilateral atelectasis versus possible vague infiltrate. The patient blood sugar improved with management in the emergency room and subsequently on the floor. He stated that he had continue to take Gleevec with good compliance. He denied any side effects. Review of Systems Constitutional: Reports fatigue, Reports weight loss Eyes: denies blurred vision, denies pain Ears: deny: decreased hearing, ear discharge, earache, tinnitus Ears, nose, mouth and throat: Denies headache, Denies sore throat Cardiovascular: Reports decreased exercise tolerance Respiratory: Reports congestion, Reports cough with sputum Gastrointestinal: Denies abdominal pain, Denies diarrhea, Denies nausea, Denies vomiting Genitourinary: Reports as per HPI Musculoskeletal: Reports muscle weakness Integumentary: Denies pruritus, Denies rash Neurological: Reports change in mentation, Reports confusion Psychiatric: Reports confusion Endocrine: Reports as per HPI, Reports low blood sugars Hematologic/Lymphatic: Reports as per HPI Past Medical History Past Medical History: Asthma, Cancer, Diabetes Mellitus, GERD/Reflux, Hyperlipidemia, Hypertension, Osteoarthritis (OA), Pneumonia, Sleep Apnea/CPAP/BIPAP Additional Past Medical History / Comment(s): [place] leukemia recently diagnosed and started oral chemo 10/10/19, IDDM type II, pt states he occasionally has hypoglycemia during middle of night, arthritis bilateral hands and occasionally in bilateral knees, gout R foot, WILLAM with Cpap use History of Any Multi-Drug Resistant Organisms: None Reported Past Surgical History: Cholecystectomy, Hernia Repair Additional Past Surgical History / Comment(s): 09/2019 bone marrow biopsy, incisional hernia, colonoscopy with benign polyps. Past Anesthesia/Blood Transfusion Reactions: No Reported Reaction Smoking Status: Never smoker - Past Family History Father Family Medical History: Diabetes Mellitus Additional Family Medical History / Comment(s): Father is 97 yrs old. Mother Family Medical History: Dementia Additional Family Medical History / Comment(s): Mother of dementia at the age of 85yrs. Medications and Allergies Home Medications Medication Instructions Recorded Confirmed Type Atenolol [Tenormin] 25 mg PO DAILY 05/15/17 10/31/19 History cloNIDine HCL [Catapres] 0.2 mg PO BID 05/15/17 10/31/19 History hydrALAZINE HCL [Apresoline] 100 mg PO TID 05/15/17 10/31/19 History Budesonide/Formoterol Fumarate 2 puff INHALATION RT-BID 06/11/18 10/31/19 His tory [Symbicort 80-4.5 Mcg Inhaler] Pantoprazole [Protonix] 40 mg PO DAILY 06/11/18 10/31/19 History Allopurinol [Zyloprim] 100 mg PO DAILY 09/21/19 10/31/19 History Bumetanide [BUMEX] 1 mg PO DAILY 09/21/19 10/31/19 History Ferrous Sulfate [Feosol] 325 mg PO PC-TID 09/21/19 10/31/19 History Losartan [Cozaar] 25 mg PO DAILY 09/21/19 10/31/19 History Allopurinol [Zyloprim] 200 mg PO W/SUPPER 10/31/19 10/31/19 History Aspirin EC [Ecotrin Low Dose] 162 mg PO DAILY 10/31/19 10/31/19 History Ergocalciferol [Vitamin D2 50,000 unit PO QMONTH 10/31/19 10/31/19 History (DRISDOL)] Imatinib Mesylate [Gleevec] 400 mg PO PC-SUPPER 10/31/19 10/31/19 History Lidocaine [Lidoderm 5% Patch] 1 patch TRANSDERM DAILY PRN 10/31/19 10/31/19 History Magnesium Oxide [Mag-Ox] 400 mg PO DAILY 10/31/19 10/31/19 History Azithromycin [Zithromax] 500 mg PO DAILY #7 tab 11/01/19 Rx Allergies Allergy/AdvReac Type Severity Reaction Status Date / Time lisinopril Allergy Unknown Verified 10/31/19 10:23 TIDE LAUNDRY SOAP Allergy Severe Rash/Hives Uncoded 10/31/19 10:07 Physical Exam Vitals: Vital Signs Temp Pulse Resp BP Pulse Ox 11/01/19 07:00 97.6 F 66 16 172/70 97 11/01/19 03:15 98.1 F 67 16 178/64 97 11/01/19 03:12 66 127/66 11/01/19 02:01 98.1 F 67 16 178/64 96 Intake and Output 11/01/19 11/01/19 11/02/19 14:59 22:59 06:59 Intake Total 375 Balance 375 Intake: Oral 375 Other: Voiding Method Toilet - Constitutional General appearance: no acute distress - EENT Eyes: EOMI, PERRLA ENT: hearing grossly normal, normal oropharynx - Neck Neck: no lymphadenopathy Thyroid: bilateral: normal size - Respiratory Respiratory: bilateral: CTA - Cardiovascular Rhythm: regular Heart sounds: normal: S1, S2 - Gastrointestinal General gastrointestinal: normal bowel sounds, soft - Integumentary Integumentary: normal - Neurologic Neurologic: CNII-XII intact - Musculoskeletal Musculoskeletal: generalized weakness, strength equal bilaterally - Psychiatric Psychiatric: A&O x's 3, appropriate affect Results CBC & Chem 7: 10/31/19 04:50 10/31/19 04:50 Labs: Abnormal Lab Results - Last 24 Hours (Table) 10/31/19 11/01/19 Range/Units 23:08 06:45 POC Glucose (mg/dL) 178 H 70 L (75-99) mg/dL Microbiology - Last 24 Hours (Table) 10/31/19 07:08 Blood Culture - Preliminary Blood No Growth after 24 hours 10/31/19 20:10 Gram Stain - Preliminary Sputum Sputum Culture - Preliminary Chest x-ray: report reviewed Assessment and Plan (1) Chronic myelocytic leukemia Narrative/Plan: The patient was recently diagnosed with this condition, which was in the chronic phase. He has been started on Gleevec which she has been tolerating well. He reports good compliance. He showing signs of a good hematologic remission, with white count actually 3.9 today with normal differential. The patient's hemoglobin was also mildly low at 9.9 which is likely due to Gleevec affect All his blood counts are in a safe range and therefore it was recommended that he should continue Gleevec. In case of acute illness, exaggerated drop in counts can occur, but this is unlikely given the patient's clinical improvement. Status: Acute Code(s): C92.10 - CHRONIC MYELOID LEUK, BCR/ABL-POSITIVE, NOT ACHIEVE REMIS SNOMED Code(s): 34524501 (2) Hypoglycemia Narrative/Plan: The patient has been taking his recommended insulin dose. The case was discussed with the admitting service. It is felt that the hypoglycemia episode occurred likely as the patient oral intake had diminished. He had not been feeling well because of his RT symptoms. Defer to the admitting service for further management. His insulin dose will be adjusted and discharge Status: Acute Code(s): E16.2 - HYPOGLYCEMIA, UNSPECIFIED SNOMED Code(s): 132133918 (3) Pneumonia Narrative/Plan: Case was discussed with the admitting service. The patient is showing no signs of SIRS or sepsis. The possibility of pneumonia versus atelectasis is overall questionable. The patient was therefore felt to be appropriate to be treated wi th oral antibiotics as an outpatient. Therefore he is likely to be discharged today. Deferred to the admitting service for further management in this regard Status: Acute Code(s): J18.9 - PNEUMONIA, UNSPECIFIED ORGANISM SNOMED Code (s): 056090190 Plan: Case discussed in detail with the admitting service. As noted above. Recommended that the patient should continue Gleevec inpatient, and on discharge. He should follow-up in the office as previously scheduled.
== END 2019-11-01 11:25 | disposition home or self-care (01) | DRG 637 ==
LOC: EC 04:20 → 4SSUR 06:55
PROVIDERS: ADMIT Family Medicine; ATTEND Family Medicine
DX: E11.649 Type 2 diabetes mellitus with hypoglycemia without coma (principal); J18.9 Pneumonia, unspecified organism; Z68.42 Body mass index [BMI] 45.0-49.9, adult; C92.10 Chronic myeloid leukemia, BCR/ABL-positive, not having achieved remission; J98.11 Atelectasis; N17.9 Acute kidney failure, unspecified; E66.01 Morbid (severe) obesity due to excess calories; G47.33 Obstructive sleep apnea (adult) (pediatric); J45.909 Unspecified asthma, uncomplicated; I10 Essential (primary) hypertension; E78.5 Hyperlipidemia, unspecified; K21.9 Gastro-esophageal reflux disease without esophagitis; M19.041 Primary osteoarthritis, right hand; M19.042 Primary osteoarthritis, left hand; M17.0 Bilateral primary osteoarthritis of knee; M10.9 Gout, unspecified; Z79.82 Long term (current) use of aspirin; Z79.51 Long term (current) use of inhaled steroids; Z79.4 Long term (current) use of insulin; Z79.899 Other long term (current) drug therapy; Z87.891 Personal history of nicotine dependence; Z99.89 Dependence on other enabling machines and devices; Z90.49 Acquired absence of other specified parts of digestive tract; Z98.890 Other specified postprocedural states; Z88.8 Allergy status to other drugs, medicaments and biological substances; Z91.048 Other nonmedicinal substance allergy status; Z83.3 Family history of diabetes mellitus; Z81.8 Family history of other mental and behavioral disorders
CPT/HCPCS: 36415; 71045; 71046; 80053; 81001; 84484; 84550; 85025; 87040; 87070; 87205; 87502; 93005; 94640; 94760; 96361; 96365; 99285

== ENCOUNTER → 2019-11-23 | Outpatient (CLI) | payer MEDICARE ==
--- NOTE | 2019-11-25 21:37 | US ---
EXAMINATION TYPE: US kidneys/renal and bladder DATE OF EXAM: 11/23/2019 COMPARISON: NONE CLINICAL HISTORY: 69-year-old male R35.0 Frequency of micturition; N39.8. Kidney function low. EXAM MEASUREMENTS: Right Kidney: 11.1 x 4.6 x 5.1 cm Left Kidney: 10.7 x 5.6 x 3.7 cm No hydronephrosis on either side. Bladder: Not well visualized. Not full. Bilateral Jets seen: No IMPRESSION: No hydronephrosis. Nondistention of the bladder limits its evaluation.
== END | disposition home or self-care (01) ==
LOC: RADUSWWP 16:17
PROVIDERS: ATTEND Family Medicine
DX: N39.8 Other specified disorders of urinary system (principal); R35.0 Frequency of micturition; Z88.8 Allergy status to other drugs, medicaments and biological substances
CPT/HCPCS: 76770

== ENCOUNTER 2020-04-25 19:26 | Emergency (ER) | payer MEDICARE, OTHER ==
[2020-04-25 19:43] VITALS: RESP 20; TEMP 98.7
[2020-04-25] MEDS ORDERED: ONDANSETRON 4 MG/2 ML VIAL IVP STA (19:56)
[2020-04-25] MEDS ORDERED: SODIUM CHLORIDE 0.9% 1,000 ML IV STA ×2 (19:56)
[2020-04-25] MEDS ORDERED: MORPHINE SULFATE 4 MG/ML SYRINGE IV STA (19:56)
[2020-04-25] MEDS ORDERED: PANTOPRAZOLE 40 MG/10 ML VIAL IVP STA (19:56)
--- NOTE | 2020-04-25 20:03 | ED ---
Nausea/Vomiting/Diarrhea HPI - General Chief complaint: Nausea/Vomiting/Diarrhea Stated complaint: Sent by pcp,Vomiting Time Seen by Provider: 04/25/20 19:44 Source: patient, RN notes reviewed, old records reviewed Mode of arrival: ambulatory Limitations: no limitations - History of Present Illness Initial comments: This is a 69-year-old male resents for evaluation of nausea and vomiting. Patient started tramadol last night for left sciatic pain. He felt fighting medications left-sided woke up this morning with persistent nausea vomiting multiple episodes unable to keep anything down failure to take his nighttime medications, patient does have leukemia and concern that not taking his medications may cause some problems. He denies any pain. No abdominal pain, no fevers. He does still have some left-sided hip pain left sciatic pain. No dys uria or difficulty with bowel movements MD complaint: nausea, vomiting -: hour(s) Description of Vomiting: food contents, watery Associated Abdominal Pain: No Radiation: none Severity: moderate Severity scale (1-10): 4 (4 episodes of vomiting) Consistency: constant Improves with: none Worsens with: none Context: other (Patient did start new pain medication) Associated Symptoms: nausea/vomiting - Related Data Home Medications Medication Instructions Recorded Confirmed Atenolol [Tenormin] 25 mg PO DAILY 05/15/17 10/31/19 cloNIDine HCL [Catapres] 0.2 mg PO BID 05/15/17 10/31/19 hydrALAZINE HCL [Apresoline] 100 mg PO TID 05/15/17 10/31/19 Budesonide/Formoterol Fumarate 2 puff INHALATION RT-BID 06/11/18 10/31/19 [Symbicort 80-4.5 Mcg Inhaler] Pantoprazole [Protonix] 40 mg PO DAILY 06/11/18 10/31/19 Allopurinol [Zyloprim] 100 mg PO DAILY 09/21/19 10/31/19 Bumetanide [BUMEX] 1 mg PO DAILY 09/21/19 10/31/19 Ferrous Sulfate [Feosol] 325 mg PO PC-TID 09/21/19 10/31/19 Losartan [Cozaar] 25 mg PO DAILY 09/21/19 10/31/19 Allopurinol [Zyloprim] 200 mg PO W/SUPPER 10/31/19 10/31/19 Aspirin EC [Ecotrin Low Dose] 162 mg PO DAILY 10/31/19 10/31/19 Ergocalciferol [Vitamin D2 50,000 unit PO QMONTH 10/31/19 10/31/19 (DRISDOL)] Imatinib Mesylate [Gleevec] 400 mg PO PC-SUPPER 10/31/19 10/31/19 Lidocaine [Lidoderm 5% Patch] 1 patch TRANSDERM DAILY PRN 10/31/19 10/31/19 Magnesium Oxide [Mag-Ox] 400 mg PO DAILY 10/31/19 10/31/19 Previous Rx's Medication Instructions Recorded Azithromycin [Zithromax] 500 mg PO DAILY #7 tab 11/01/19 Allergies Allergy/AdvReac Type Severity Reaction Status Date / Time lisinopril Allergy Unknown Verified 04/25/20 19:43 TIDE LAUNDRY SOAP Allergy Severe Rash/Hives Uncoded 04/25/20 19:43 Review of Systems ROS Statement: Those systems with pertinent positive or pertinent negative responses have been documented in the HPI. ROS Other: All systems not noted in ROS Statement are negative. Past Medical History Past Medical History: Asthma, Cancer, Diabetes Mellitus, GERD/Reflux, Hyperlipidemia, Hypertension, Osteoarthritis (OA), Pneumonia, Sleep Apnea/CPAP/BIPAP Additional Past Medical History / Comment(s): [place] leukemia recently diagnosed and started oral chemo 10/10/19, IDDM type II, pt states he occasionally has hypoglycemia during middle of night, arthritis bilateral hands and occasionally in bilateral knees, gout R foot, WILLAM with Cpap use History of Any Multi-Drug Resistant Organisms: None Reported Past Surgical History: Cholecystectomy, Hernia Repair Additional Past Surgical History / Comment(s): 09/2019 bone marrow biopsy, incisional hernia, colonoscopy with benign polyps. Past Anesthesia/Blood Transfusion Reactions: No Reported Reaction Past Psychological History: No Psychological Hx Reported Smoking Status: Never smoker Past Alcohol Use History: None Reported Past Drug Use History: None Reported - Past Family History Father Family Medical History: Diabetes Mellitus Additional Family Medical History / Comment(s): Father is 97 yrs old. Mother Family Medical History: Dementia Additional Family Medical History / Comment(s): Mother of dementia at the age of 85yrs. General Exam Limitations: no limitations General appearance: alert, in no apparent distress Head exam: Present: atraumatic, normocephalic, normal inspection Eye exam: Present: normal appearance, PERRL, EOMI. Absent: scleral icterus, co njunctival injection, periorbital swelling ENT exam: Present: normal exam, mucous membranes moist Neck exam: Present: normal inspection. Absent: tenderness, meningismus, lymphadenopathy Respiratory exam: Present: normal lung sounds bilaterally. Absent: respiratory distress, wheezes, rales, rhonchi, stridor Cardiovascular Exam: Present: regular rate, normal rhythm, normal heart sounds. Absent: systolic murmur, diastolic murmur, rubs, gallop, clicks GI/Abdominal exam: Present: soft, normal bowel sounds. Absent: distended, tenderness, guarding, rebound, rigid Extremities exam: Present: normal inspection, full ROM, normal capillary refill. Absent: tenderness, pedal edema, joint swelling, calf tenderness Back exam: Present: normal inspection Neurological exam: Present: alert, oriented X3, CN II-XII intact Psychiatric exam: Present: normal affect, normal mood Skin exam: Present: warm, dry, intact, normal color. Absent: rash Course Vital Signs 04/25/20 04/25/20 19:39 21:41 Temperature 98.7 F Pulse Rate 91 83 Respiratory 20 20 Rate Blood Pressure 161/64 182/60 O2 Sat by Pulse 97 95 Oximetry - Reevaluation(s) Reevaluation #1: 04/25/20 20:02 medical records reviewed Reevaluation #2: 04/25/20 20:02 Patient has no active vomiting here in the ER Medical Decision Making - Medical Decision Making 69 male with nonspecific pain gastritis. Symptoms resolved patient feels improved and would like discharge home - Lab Data Result diagrams: 04/25/20 20:10 04/25/20 20:10 Lab Results 04/25/20 04/25/20 Range/Units 20:10 20:10 WBC 6.1 (3.8-10.6) k/uL RBC 2.85 L (4.30-5.90) m/uL Hgb 9.5 L (13.0-17.5) gm/dL Hct 30.7 L (39.0-53.0) % MCV 107.5 H (80.0-100.0) fL MCH 33.4 (25.0-35.0) pg MCHC 31.1 (31.0-37.0) g/dL RDW 14.2 (11.5-15.5) % Plt Count 170 (150-450) k/uL Neutrophils % 68 % Lymphocytes % 22 % Monocytes % 6 % Eosinophils % 1 % Basophils % 0 % Neutrophils # 4.2 (1.3-7.7) k/uL Lymphocytes # 1.4 (1.0-4.8) k/uL Monocytes # 0.4 (0-1.0) k/uL Eosinophils # 0.1 (0-0.7) k/uL Basophils # 0.0 (0-0.2) k/uL Macrocytosis Moderate Sodium 143 (137-145) mmol/L Potassium 4.6 (3.5-5.1) mmol/L Chloride 109 H (98-107) mmol/L Carbon Dioxide 23 (22-30) mmol/L Anion Gap 11 mmol/L BUN 52 H (9-20) mg/dL Creatinine 2.71 H (0.66-1.25) mg/dL Est GFR (CKD-EPI)AfAm 26 (>60 ml/min/1.73 sqM) Est GFR (CKD-EPI)NonAf 23 (>60 ml/min/1.73 sqM) Glucose 153 H (74-99) mg/dL Calcium 10.0 (8.4-10.2) mg/dL Phosphorus 3.1 (2.5-4.5) mg/dL Magnesium 2.5 H (1.6-2.3) mg/dL Total Bilirubin 0.7 (0.2-1.3) mg/dL AST 33 (17-59) U/L ALT 18 (4-49) U/L Alkaline Phosphatase 90 (38-126) U/L Total Protein 6.7 (6.3-8.2) g/dL Albumin 4.0 (3.5-5.0) g/dL Lipase 140 (23-300) U/L Disposition Clinical Impression: Gastritis, Nausea & vomiting, Medication reaction Disposition: HOME SELF-CARE Condition: Good Instructions (If sedation given, give patient instructions): Acute Nausea and Vomiting (ED) Is patient prescribed a controlled substance at d/c from ED?: No Referrals: Dwayne Castellano MD [Primary Care Provider] - 1-2 days
[2020-04-25] MEDS ORDERED: ACET/COD 300 MG/30 MG STARTER PACK 6 TAB BTL PO STA (20:45)
[2020-04-25] MEDS ORDERED: ONDANSETRON 4 MG ODT STARTER PACK 2 TAB BTL PO STA (20:45)
[2020-04-25 20:48] LABS: Basophils % (A) 0 %; Eosinophils # (A) 0.1 k/uL (0-0.7); Eosinophils % (A) 1 %; HCT 30.7 % (39.0-53.0); HGB 9.5 gm/dL (13.0-17.5); Lymphocytes # (A) 1.4 k/uL (1.0-4.8); Lymphocytes % (A) 22 %; MCH 33.4 pg (25.0-35.0); MCHC 31.1 g/dL (31.0-37.0); MCV 107.5 fL (80.0-100.0); Macrocytosis Moderate; Monocytes # (A) 0.4 k/uL (0-1.0); Monocytes % (A) 6 %; Neutrophils # (A) 4.2 k/uL (1.3-7.7); Neutrophils % (A) 68 %; Platelet Count 170 k/uL (150-450); RBC 2.85 m/uL (4.30-5.90); RDW 14.2 % (11.5-15.5); WBC 6.1 k/uL (3.8-10.6)
[2020-04-25 20:57] LABS: Magnesium 2.5 mg/dL (1.6-2.3); Phosphorus 3.1 mg/dL (2.5-4.5); Potassium 4.6 mmol/L (3.5-5.1); Total Bilirubin 0.7 mg/dL (0.2-1.3); Total Protein 6.7 g/dL (6.3-8.2)
[2020-04-25] MEDS ORDERED: MORPHINE SULFATE 4 MG/ML SYRINGE IVP STA (21:01)
[2020-04-25 21:46] VITALS: BP 182/60; PULSE 83
== END 2020-04-25 21:49 | disposition home or self-care (01) ==
LOC: EC 19:26
DX: K29.70 Gastritis, unspecified, without bleeding (principal); R11.2 Nausea with vomiting, unspecified; T40.4X5A Adverse effect of other synthetic narcotics, initial encounter; E11.9 Type 2 diabetes mellitus without complications; I10 Essential (primary) hypertension; J45.909 Unspecified asthma, uncomplicated; E78.5 Hyperlipidemia, unspecified; G47.33 Obstructive sleep apnea (adult) (pediatric); Z79.51 Long term (current) use of inhaled steroids; Z79.82 Long term (current) use of aspirin; Z79.899 Other long term (current) drug therapy; Z88.8 Allergy status to other drugs, medicaments and biological substances; Z91.09 Other allergy status, other than to drugs and biological substances; Z99.89 Dependence on other enabling machines and devices
CPT/HCPCS: 36415; 80053; 83690; 83735; 84100; 85025; 99284; 96374; 96375 ×2; 96376; 96361; J2270; J2405; S0119; C9113

== ENCOUNTER 2020-12-02 19:16 | Observation (INO) | payer MEDICARE ==
[2020-12-02 19:24] LABS: Glucose,Whole Blood 95 mg/dL (75-99)
--- NOTE | 2020-12-02 20:47 | XR ---
EXAMINATION TYPE: XR chest 2V DATE OF EXAM: 12/02/2020 COMPARISON: 11/01/2019. HISTORY: Shortness of breath. TECHNIQUE: Frontal and lateral views of the chest are obtained. FINDINGS: There is no focal air space opacity, pleural effusion, or pneumothorax seen. The cardiac silhouette size is within normal limits. The osseous structures are intact. IMPRESSION: No acute cardiopulmonary process.
--- NOTE | 2020-12-02 20:58 | ED ---
General Adult HPI - General Chief complaint: Recheck/Abnormal Lab/Rx Stated complaint: High sugar,Confusion Time Seen by Provider: 12/02/20 19:20 Source: patient, RN notes reviewed, old records reviewed Mode of arrival: wheelchair Limitations: no limitations - History of Present Illness Initial comments: This is a 70-year-old male who presents emergency Department complaining that earlier today his sugar was extremely high and he took his long-acting insulin along with NovoLog at about 2:00 that was approximately 5-6 hours early. Patient states after that he sat down and get something to eat and then he said his vision was extremely poor and he was telling his he was unable to see good and he spilled some macaroni and cheese onto the floor. According to the he just wasn't acting right. When she eventually got around to taking the sugar it was at about 95 and he was starting to come back to his baseline. Patient denies any headache patient denies any numbness or weakness. Patient denies any chest pain difficult breathing shortness of breath per patient denies any recent fever chills or cough. Patient denies any abdominal pain currently. Though he states earlier in the week he had some right-sided abdominal pain that is not there currently. Patient denies nausea vomiting diarrhea. Patient denies any back pain. - Related Data Home Medications Medication Instructions Recorded Confirmed cloNIDine HCL [Catapres] 0.2 mg PO BID 05/15/17 12/02/20 hydrALAZINE HCL [Apresoline] 100 mg PO TID 05/15/17 12/02/20 Bumetanide [BUMEX] 1 mg PO DAILY 09/21/19 12/02/20 Losartan [Cozaar] 25 mg PO DAILY 09/21/19 12/02/20 Ergocalciferol [Vitamin D2 50,000 unit PO QMONTH 10/31/19 12/02/20 (DRISDOL)] Imatinib Mesylate [Gleevec] 400 mg PO PC-SUPPER 10/31/19 12/02/20 Magnesium Oxide [Mag-Ox] 400 mg PO DAILY 10/31/19 12/02/20 Acetaminophen [Tylenol 8 Hour] 1,300 mg PO BID 12/02/20 12/02/20 Famotidine [Pepcid] 40 mg PO DAILY 12/02/20 12/02/20 Furosemide [Lasix] 20 mg PO DAILY 12/02/20 12/02/20 INSULIN ASPART (NovoLOG) [NovoLOG 6 unit SQ AC-TID 12/02/20 12/02/20 (formulary)] Insulin Glargine [Lantus] 40 unit SQ HS 12/02/20 12/02/20 Simvastatin [Zocor] 20 mg PO DAILY 12/02/20 12/02/20 atenoloL [Atenolol] 25 mg PO DAILY 12/02/20 12/02/20 Allergies Allergy/AdvReac Type Severity Reaction Status Date / Time lisinopril Allergy Unknown Verified 12/02/20 21:29 TIDE LAUNDRY SOAP Allergy Severe Rash/Hives Uncoded 12/02/20 19:23 Review of Systems ROS Statement: Those systems with pertinent positive or pertinent negative responses have been documented in the HPI. ROS Other: All systems not noted in ROS Statement are negative. Past Medical History Past Medical History: Asthma, Cancer, Diabetes Mellitus, GERD/Reflux, Hyperlipidemia, Hypertension, Osteoarthritis (OA), Pneumonia, Sleep Apnea/CPAP/BIPAP Additional Past Medical History / Comment(s): [place] leukemia recently diagnosed and started oral chemo 10/10/19, IDDM type II, pt states he occasionally has hypoglycemia during middle of night, arthritis bilateral hands and occasionally in bilateral knees, gout R foot, WILLAM with Cpap use History of Any Multi-Drug Resistant Organisms: None Reported Past Surgical History: Cholecystectomy, Hernia Repair Additional Past Surgical History / Comment(s): 09/2019 bone marrow biopsy, incisional hernia, colonoscopy with benign polyps. Past Anesthesia/Blood Transfusion Reactions: No Reported Reaction Past Psychological History: No Psychological Hx Reported Smoking Status: Never smoker Past Alcohol Use History: None Reported Past Drug Use History: None Reported - Past Family History Father Family Medical History: Diabetes Mellitus Additional Family Medical History / Comment(s): Father is 97 yrs old. Mother Family Medical History: Dementia Additional Family Medical History / Comment(s): Mother of dementia at the age of 85yrs. General Exam - General Exam Comments Initial Comments: GENERAL: Patient is well-developed and well-nourished. Patient is nontoxic and well-hydr ated and is in no acute distress. ENT: Neck is soft and supple. No significant lymphadenopathy is noted. Oropharynx is clear. Moist mucous membranes. Neck has full range of motion without eliciting any pain. EYES: The sclera were anicteric and conjunctiva were pink and moist. Extraocular mo vements were intact and pupils were equal round and reactive to light. Eyelids were unremarkable. PULMONARY: Unlabored respirations. Good breath sounds bilaterally. No audible rales rhonchi or wheezing was noted. CARDIOVASCULAR: There is a regular rate and rhythm without any murmurs gallops or rubs. ABDOMEN: Soft and nontender with normal bowel sounds. SKIN: Skin is clear with no lesions or rashes and otherwise unremarkable. NEUROLOGIC: Patient is alert and oriented x3. Cranial nerves II through XII are grossly intact. Motor and sensory are also intact. Normal speech, volume and content. Symmetrical smile. MUSCULOSKELETAL: Normal extremities with adequate strength and full range of motion. LYMPHATICS: No significant lymphadenopathy is noted PSYCHIATRIC: Normal psychiatric evaluation. Limitations: no limitations Course Vital Signs 12/02/20 12/02/20 19:19 21:37 Temperature 98.1 F Pulse Rate 58 L 63 Respiratory 18 16 Rate Blood Pressure 164/73 134/73 O2 Sat by Pulse 99 99 Oximetry Medical Decision Making - Medical Decision Making EKG shows sinus rhythm at 61 bpm ND interval 174 QRS is 114 QT interval 410 QTC is 412. Patient's EKG shows no ST segment elevation or depression. Chest shows no acute abnormality. Patient remained a symptom extremities equal. But because of the volatility of his sugar in the last day we decided to keep the patient I spoke with Dr. Montemayor and he was in agreement. I wrote admitting orders. - Lab Data Result diagrams: 12/02/20 20:51 12/02/20 20:51 Lab Results 12/02/20 12/02/20 12/02/20 Range/Units 19:22 20:51 20:51 WBC 9.1 (3.8-10.6) k/uL RBC 3.56 L (4.30-5.90) m/uL Hgb 12.2 L (13.0-17.5) gm/dL Hct 35.7 L (39.0-53.0) % MCV 100.2 H (80.0-100.0) fL MCH 34.2 (25.0-35.0) pg MCHC 34.1 (31.0-37.0) g/dL RDW 13.0 (11.5-15.5) % Plt Count 209 (150-450) k/uL MPV 8.9 Neutrophils % 57 % Lymphocytes % 22 % Monocytes % 9 % Eosinophils % 11 % Basophils % 1 % Neutrophils # 5.1 (1.3-7.7) k/uL Lymphocytes # 2.0 (1.0-4.8) k/uL Monocytes # 0.8 (0-1.0) k/uL Eosinophils # 1.0 H (0-0.7) k/uL Basophils # 0.1 (0-0.2) k/uL Sodium 138 (137-145) mmol/L Potassium 5.4 H (3.5-5.1) mmol/L Chloride 105 (98-107) mmol/L Carbon Dioxide 23 (22-30) mmol/L Anion Gap 10 mmol/L BUN 48 H (9-20) mg/dL Creatinine 2.02 H (0.66-1.25) mg/dL Est GFR (CKD-EPI)AfAm 37 (>60 ml/min/1.73 sqM) Est GFR (CKD-EPI)NonAf 32 (>60 ml/min/1.73 sqM) Glucose 90 (74-99) mg/dL POC Glucose (mg/dL) 95 (75-99) mg/dL POC Glu Claims Examiner CAMILA Alessio Yap Plasma Lactic Acid Michael (0.7-2.0) mmol/L Calcium 10.8 H (8.4-10.2) mg/dL Magnesium 1.9 (1.6-2.3) mg/dL Total Bilirubin 0.6 (0.2-1.3) mg/dL AST 41 (17-59) U/L ALT 27 (4-49) U/L Alkaline Phosphatase 67 (38-126) U/L Total Protein 7.3 (6.3-8.2) g/dL Albumin 4.1 (3.5-5.0) g/dL Acetone, Qual Negative (Negative) 12/02/20 Range/Units 20:51 WBC (3.8-10.6) k/uL RBC (4.30-5.90) m/uL Hgb (13.0-17.5) gm/dL Hct (39.0-53.0) % MCV (80.0-100.0) fL MCH (25.0-35.0) pg MCHC (31.0-37.0) g/dL RDW (11.5-15.5) % Plt Count (150-450) k/uL MPV Neutrophils % % Lymphocytes % % Monocytes % % Eosinophils % % Basophils % % Neutrophils # (1.3-7.7) k/uL Lymphocytes # (1.0-4.8) k/uL Monocytes # (0-1.0) k/uL Eosinophils # (0-0.7) k/uL Basophils # (0-0.2) k/uL Sodium (137-145) mmol/L Potassium (3.5-5.1) mmol/L Chloride (98-107) mmol/L Carbon Dioxide (22-30) mmol/L Anion Gap mmol/L BUN (9-20) mg/dL Creatinine (0.66-1.25) mg/dL Est GFR (CKD-EPI)AfAm (>60 ml/min/1.73 sqM) Est GFR (CKD-EPI)NonAf (>60 ml/min/1.73 sqM) Glucose (74-99) mg/dL POC Glucose (mg/dL) (75-99) mg/dL POC Glu Claims Examiner ID Plasma Lactic Acid Michael 1.2 (0.7-2.0) mmol/L Calcium (8.4-10.2) mg/dL Magnesium (1.6-2.3) mg/dL Total Bilirubin (0.2-1.3) mg/dL AST (17-59) U/L ALT (4-49) U/L Alkaline Phosphatase (38-126) U/L Total Protein (6.3-8.2) g/dL Albumin (3.5-5.0) g/dL Acetone, Qual (Negative) Disposition Clinical Impression: Hypoglycemia, Blurred vision Disposition: ADMITTED IP TO THIS HOSP Referrals: Dwayne Castellano MD [Primary Care Provider] - 1-2 days Time of Disposition: 21:39
[2020-12-02 21:00] LABS: Basophils # (A) 0.1 k/uL (0-0.2); Basophils % (A) 1 %; Eosinophils % (A) 11 %; HCT 35.7 % (39.0-53.0); HGB 12.2 gm/dL (13.0-17.5); Lymphocytes % (A) 22 %; MCH 34.2 pg (25.0-35.0); MCHC 34.1 g/dL (31.0-37.0); MCV 100.2 fL (80.0-100.0); Mean Platelet Volume 8.9; Monocytes # (A) 0.8 k/uL (0-1.0); Monocytes % (A) 9 %; Neutrophils # (A) 5.1 k/uL (1.3-7.7); Neutrophils % (A) 57 %; Platelet Count 209 k/uL (150-450); RBC 3.56 m/uL (4.30-5.90); WBC 9.1 k/uL (3.8-10.6)
[2020-12-02 21:12] LABS: ALT 27 U/L (4-49); AST 41 U/L (17-59); African American GFR (CKD) 37 (>60 ml/min/1.73 sqM); Albumin 4.1 g/dL (3.5-5.0); Alkaline Phosphatase 67 U/L (38-126); Anion Gap 10 mmol/L; Blood Urea Nitrogen 48 mg/dL (9-20); Calcium 10.8 mg/dL (8.4-10.2); Carbon Dioxide 23 mmol/L (22-30); Chloride 105 mmol/L (98-107); Glucose 90 mg/dL (74-99); Magnesium 1.9 mg/dL (1.6-2.3); Non-African American GFR(CKD) 32 (>60 ml/min/1.73 sqM); Potassium 5.4 mmol/L (3.5-5.1); Sodium 138 mmol/L (137-145); Total Bilirubin 0.6 mg/dL (0.2-1.3); Total Protein 7.3 g/dL (6.3-8.2)
[2020-12-02 21:37] VITALS: RESP 16
[2020-12-02] MEDS ORDERED: SODIUM CHLORIDE 0.9% 1,000 ML IV ONE (21:39)
[2020-12-02 23:15] LABS: Glucose,Whole Blood 94 mg/dL (75-99)
[2020-12-03 00:58] LABS: Glucose,Whole Blood 123 mg/dL (75-99)
[2020-12-03 03:12] LABS: Glucose,Whole Blood 126 mg/dL (75-99)
[2020-12-03 05:39] LABS: Glucose,Whole Blood 123 mg/dL (75-99)
[2020-12-03 07:20] LABS: Glucose,Whole Blood 149 mg/dL (75-99)
[2020-12-03 07:51] VITALS: BP 158/60; PULSE 60; TEMP 97.9
[2020-12-03 09:15] LABS: Glucose,Whole Blood 165 mg/dL (75-99)
--- NOTE | 2020-12-03 18:44 | HP ---
HISTORY AND PHYSICAL CHIEF COMPLAINT: Hypoglycemia. 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 He has been managing his blood sugar fairly well over the last several years after many years of not doing so. Blood work was obtained in the office 2 days ago and his blood sugar came back at 526. He was notified and asked to come into the office the following day. Because of this, he gave himself 60 units instead of his usual 45 units of Lantus, and his blood sugar started to come down. It went to 400 and then it continued to drop, and suddenly he stated that he could not see and he was having trouble speaking. He was brought to the emergency room by ambulance and had a blood sugar of 90. It is presumed that he had been hypoglycemic. With glucose in the emergency room he returned to normal. He was admitted for observation. REVIEW OF SYSTEMS: He has had no fever, chills, neurologic problems, chest pain, abdominal pain, vomiting, diarrhea, melena, incontinence, urinary complaints, etc. Past medical history, family history, and personal and social histories can all be found in detail in his hospital records from the past. He is ALLERGIC to [employer]IT[employer], which produced a cough. He is on Lantus 45 units once a day, NovoLog 25 units before meals, metoclopramide 10 mg 4 times a day, Gleevec 400 mg 4 a day, Pepcid 20 mg once a day, Carafate 1 gram q.i.d., Zofran p.r.n., Lasix 20 mg once a day, iron 325 once a day, atenolol 25 once a day, Cozaar 25 once a day, magnesium and hydralazine 100 mg t.i.d. as well as ProAir MDI, vitamin D3, Catapres 0.2 twice a day, and Cardura 1 mg at bedtime. The remainder of his history is unremarkable. PHYSICAL EXAMINATION: Blood pressure is 138/85 with a pulse of 75, respirations of 32, and he is afebrile. In general, he appeared to be obese, in no acute distress. Skin color is normal. Skin is warm and dry. Lymph nodes are not enlarged. Head, ears, eyes, nose, mouth and throat were normal. Neck veins cannot be evaluated. Chest is clear to auscultation. Cardiac exam demonstrated a faint systolic murmur over the precordium. Abdomen is very protuberant, soft and nontender without any masses or visceromegaly. Extremities are normal. Neurologically he is intact. He is admitted to the hospital with the diagnoses: 1. Hypoglycemia. 2. Uncontrolled insulin-dependent diabetes mellitus. 3. Morbid obesity. 4. CML. PLAN: 1. Bedrest. 2. IV fluids. 3. Monitor blood sugars. 4. Probably home in the next day or so. MMODL / IJN: [id number] /
--- NOTE | 2020-12-03 23:40 | DS ---
DISCHARGE SUMMARY CHIEF COMPLAINT: Hypoglycemia. HISTORY OF PRESENT ILLNESS AND PHYSICAL EXAMINATION: Details of this man's history and physical can be found in the initial workup. LABORATORY STUDIES: While he was in the hospital he had laboratory studies, details of which can be found in the laboratory section of his chart. COURSE IN THE HOSPITAL: After admission he was placed on bedrest, started on intravenous fluids, and his blood sugars came back into normal range. He was doing well. It was felt that he could go home on December 03, and he will go home on his usual activity and diet and will adjust his insulin dosage. FINAL DIAGNOSES: 1. Hypoglycemia. 2. Uncontrolled type 2 insulin-dependent diabetes mellitus. 3. Morbid obesity. 4. Gastroparesis. 5. CML. OPERATIONS: None: CONSULTATIONS: None. He is improved. HEBERT / ETHEL: [id number] /
== END 2020-12-03 11:07 | disposition home or self-care (01) ==
LOC: EC 19:16 → 6NMEDSUR 21:42
PROVIDERS: ADMIT Family Medicine; ATTEND Family Medicine
DX: E11.649 Type 2 diabetes mellitus with hypoglycemia without coma (principal); E11.43 Type 2 diabetes mellitus with diabetic autonomic (poly)neuropathy; E66.01 Morbid (severe) obesity due to excess calories; E78.5 Hyperlipidemia, unspecified; I10 Essential (primary) hypertension; J45.909 Unspecified asthma, uncomplicated; K31.84 Gastroparesis; M19.041 Primary osteoarthritis, right hand; M19.042 Primary osteoarthritis, left hand; Z79.4 Long term (current) use of insulin; Z83.3 Family history of diabetes mellitus; Z85.6 Personal history of leukemia; Z20.822 Contact with and (suspected) exposure to COVID-19
CPT/HCPCS: 96361 ×2; 96360; 99285; 36415; 93005; 80053; 82009; 83605; 83735; 85025; 87635; 71046; G0378 ×2

== ENCOUNTER → 2021-03-04 | Outpatient (CLI) | payer MEDICARE ==
--- NOTE | 2021-03-04 15:18 | MR ---
EXAMINATION TYPE: MR lumbar spine wo/w con DATE OF EXAM: 03/04/2021 COMPARISON: None HISTORY: Pain into rt leg and ankle CONTRAST: 0 mL intravenous Gadavist. TECHNIQUE: Multiplanar, multisequence images of the lumbar spine were acquired. FINDINGS: Cord terminates at the T12-L1 level. L5-S1: There is a broad-based central disc protrusion with moderate anterior thecal sac compression. No AP spinal canal stenosis is present. Facet hypertrophy is present. Right neural foramen is narrowe d. Left neural foramen is patent. L4-L5: Broad-based disc bulge is present with moderate anterior thecal sac compression. Facet hypertr ophy is present with ligamentum flavum laxity. This has posterior lateral thecal sac compression. Mod erate bilateral foraminal narrowing is present. Some diffuse spinal canal stenosis is present. L3-L4: Subligamentous disc extension is present with mild anterior thecal sac compression centrally e xtending superiorly and inferiorly. Facet hypertrophy is present. AP spinal canal narrowing is presen t. Some lateral canal narrowing is present. Neural foramen are patent. L2-L3: Broad-based disc bulge is present with moderate anterior thecal sac compression. Central disc herniation extending superiorly and inferiorly are present. No AP spinal canal stenosis is present. M oderate to severe bilateral foraminal narrowing is present from disc bulging. L1-L2: Broad-based disc bulge is present with mild to moderate anterior thecal sac compression. Facet hypertrophy is present. No spinal canal stenosis is present. Mild to moderate bilateral foraminal na rrowing is present. T12-L1: No significant disc bulge or disc herniation. No spinal canal stenosis. No foraminal stenos is. IMPRESSION: 1. Broad-based disc bulging L5-S1, L2-3, L1-2 with mild to moderate anterior thecal sac compression d iscussed above. 2. Subligamentous disc herniation from central disc bulging L3-L4 3. Disc bulging L4-5 has moderate anterior thecal sac compression and moderate bilateral foraminal na rrowing. 4. Spinal canal narrowing L3-4 and L4-5. 5. Multilevel facet hypertrophy
== END | disposition home or self-care (01) ==
LOC: RADMRIMAIN 13:20
PROVIDERS: ATTEND Family Medicine
DX: M51.27 Other intervertebral disc displacement, lumbosacral region (principal); M48.061 Spinal stenosis, lumbar region without neurogenic claudication; M47.816 Spondylosis without myelopathy or radiculopathy, lumbar region; M99.73 Connective tissue and disc stenosis of intervertebral foramina of lumbar region
CPT/HCPCS: 72158; A9585

== ENCOUNTER → 2022-02-02 | Outpatient (CLI) | payer OTHER ==
--- NOTE | 2022-02-02 16:34 | US ---
EXAMINATION TYPE: US kidneys/renal and bladder DATE OF EXAM: 02/02/2022 COMPARISON: NONE CLINICAL HISTORY: 71-year-old male N18.4 CKD Stage 4. TECHNIQUE: Multiple sonographic images of the kidneys and bladder are obtained. FINDINGS: EXAM MEASUREMENTS: Right Kidney: 11.8 x 5.5 x 4.4 cm Left Kidney: 10.4 x 4.9 x 4.3 cm Right Kidney: no evidence of hydronephrosis Left Kidney: no evidence of hydronephrosis Bladder: Partially distended, appears wnl as visualized Bilateral Jets seen: no IMPRESSION: No hydronephrosis. Partially distended bladder shows no gross abnormality.
== END | disposition home or self-care (01) ==
LOC: RADUSWWP 13:41
PROVIDERS: ATTEND Internal Medicine
DX: N32.89 Other specified disorders of bladder (principal)
CPT/HCPCS: 76770

== ENCOUNTER 2023-04-12 15:41 | Inpatient (IN) | payer MEDICARE ==
--- NOTE | 2023-04-12 19:22 | XR ---
EXAMINATION TYPE: XR chest 2V DATE OF EXAM: 04/12/2023 COMPARISON: 11/30/2022 HISTORY: 72-year-old male with weakness TECHNIQUE: PA and lateral views FINDINGS: Low lung volumes and crowded vascular markings. Strandy atelectasis in the lower lungs. Heart normal size. Aorta and pulmonary vasculature within normal limits. [facility] in the midthoracic spine. No consoli dation or pleural effusion. IMPRESSION: Hypoventilatory changes with strandy atelectasis. No definite acute process.
[2023-04-12 20:53] LABS: Glucose,Whole Blood 447 mg/dL (70-110)
[2023-04-12] MEDS ORDERED: INSULIN REGULAR 100 UNIT/ML VIAL (IV) SQ STA (21:21)
[2023-04-12 21:43] LABS: Basophils % (A) 0 %; Eosinophils # (A) 0.3 k/uL (0-0.7); Eosinophils % (A) 3 %; HCT 37.9 % (39.0-53.0); HGB 12.1 gm/dL (13.0-17.5); Lymphocytes # (A) 1.5 k/uL (1.0-4.8); Lymphocytes % (A) 17 %; MCH 32.6 pg (25.0-35.0); MCHC 31.9 g/dL (31.0-37.0); MCV 102.2 fL (80.0-100.0); Macrocytosis Slight; Mean Platelet Volume 9.1; Monocytes # (A) 0.8 k/uL (0-1.0); Monocytes % (A) 9 %; Neutrophils # (A) 6.1 k/uL (1.3-7.7); Neutrophils % (A) 69 %; Platelet Count 148 k/uL (150-450); RBC 3.71 m/uL (4.30-5.90); RDW 13.2 % (11.5-15.5); WBC 8.8 k/uL (3.8-10.6)
--- NOTE | 2023-04-12 21:56 | CT ---
EXAMINATION TYPE: CT brain wo con DATE OF EXAM: 04/12/2023 COMPARISON: None HISTORY: 72-year-old male confusion, mental status change TECHNIQUE: Examination was done in axial plane without intravenous contrast. Coronal and sagittal r econstructions performed. CT DLP: 1231.8 mGycm Automated exposure control for dose reduction was used. FINDINGS: There is no evidence of acute intracranial hemorrhage, acute ischemic changes, mass, mass-effect, or extra-axial fluid collection. There is no effacement of cerebral sulci or basal subarachnoid cister ns. There is no hydrocephalus. There is no midline shift. Zaragoza-white matter distinction is preserv ed. Benign basal ganglia calcifications on the left. Atherosclerotic calcifications throughout the caroti d siphons. Moderate periventricular white matter hypodensities. Rightward nasal septal deviation. Paranasal sinuses and mastoid air cells are well pneumatized. Orbit s and globes are intact. IMPRESSION: Moderate burden of chronic small vessel ischemic disease. No acute intracranial abnormality seen.
[2023-04-12 21:57] LABS: ALT 36 U/L (4-49); AST 27 U/L (17-59); African American GFR (CKD) 38 (>60 ml/min/1.73 sqM); Albumin 3.8 g/dL (3.5-5.0); Alkaline Phosphatase 106 U/L (38-126); Anion Gap 6 mmol/L; Blood Urea Nitrogen 46 mg/dL (9-20); Calcium 10.7 mg/dL (8.4-10.2); Carbon Dioxide 27 mmol/L (22-30); Chloride 103 mmol/L (98-107); Glucose 442 mg/dL (74-99); Magnesium 1.9 mg/dL (1.6-2.3); Non-African American GFR(CKD) 33 (>60 ml/min/1.73 sqM); Potassium 4.5 mmol/L (3.5-5.1); Sodium 136 mmol/L (137-145); Total Bilirubin 0.5 mg/dL (0.2-1.3); Total Protein 6.8 g/dL (6.3-8.2)
[2023-04-12] MEDS ORDERED: SODIUM CHLORIDE 0.9% 1,000 ML IV ONE (22:01)
[2023-04-12 22:26] LABS: INR 0.9 (<1.2)
[2023-04-12 22:32] LABS: Partial Thromboplastin Time 20.9 sec (22.0-30.0)
--- NOTE | 2023-04-12 22:48 | ED ---
Weakness HPI - General Chief complaint: Weakness Stated complaint: Weakness Time Seen by Provider: 04/12/23 17:54 Source: patient, family Mode of arrival: wheelchair Limitations: no limitations - History of Present Illness Initial comments: This patient is 72-year-old man sent here from clinic to have further evaluation related to a constellation of symptoms that have come on over the past few days. Patient is complaining of generalized weakness and fatigue. The patient's states that he is having a difficult time with word finding. She states that when she speaks and he seems to be delayed in answering. He is also having a hard time walking around the home. He states he feels very dizzy when he is up. He denies focal weakness. MD Complaint: generalized weakness, lack of energy, difficulty walking -: days(s) Location: generalized Severity: moderate Quality: numbness Consistency: constant Improves with: none Worsens with: none Associated Symptoms: denies other symptoms - Related Data Home Medications Medication Instructions Recorded Confirmed Bumetanide [BUMEX] 2 mg PO DAILY 09/21/19 04/12/23 INSULIN ASPART (NovoLOG) [NovoLOG 15 unit SQ AC-TID 12/02/20 04/12/23 (formulary)] Insulin Glargine [Lantus Vial] 22 unit SQ HS 12/02/20 04/12/23 Bumetanide [BUMEX] 1 mg PO HS 04/12/23 04/12/23 Colchicine [Colcrys] 0.6 mg PO DAILY PRN 04/12/23 04/12/23 Famotidine 20 mg PO DAILY PRN 04/12/23 04/12/23 Febuxostat [Uloric] 40 mg PO DAILY 04/12/23 04/12/23 Ferrous Sulfate [Iron (65 MG 325 mg PO TID 04/12/23 04/12/23 Elemental)] Imatinib Mesylate [Gleevec] 400 mg PO HS@199904/12/23 04/12/23 Levothyroxine Sodium [Synthroid] 50 mcg PO DAILY 04/12/23 04/12/23 Magnesium Oxide 420mg 420 mg PO DAILY 04/12/23 04/12/23 Simvastatin [Zocor] 10 mg PO HS 04/12/23 04/12/23 Sucralfate [Carafate] 1 gm PO ACHS 04/12/23 04/12/23 calcitrioL [Rocaltrol] 0.25 mcg PO MOTUWETHFR 04/12/23 04/12/23 carvediloL [Coreg] 12.5 mg PO BID 04/12/23 04/12/23 Allergies Allergy/AdvReac Type Severity Reaction Status Date / Time lisinopril Allergy Unknown Verified 04/12/23 18:26 TIDE LAUNDRY SOAP Allergy Severe Rash/Hives Uncoded 04/12/23 18:26 Review of Systems ROS Statement: Those systems with pertinent positive or pertinent negative responses have been documented in the HPI. ROS Other: All systems not noted in ROS Statement are negative. Constitutional: Reports: weakness. Denies: fever, chills Eyes: Denies: vision change Respiratory: Denies: cough, dyspnea Cardiovascular: Denies: chest pain, palpitations, edema Gastrointestinal: Denies: abdominal pain, vomiting, diarrhea, constipation Genitourinary: Denies: dysuria, hematuria Musculoskeletal: Denies: back pain Skin: Denies: rash Neurological: Reports: weakness, confusion, abnormal gait. Denies: headache, numbness Past Medical History Past Medical History: Asthma, Cancer, Diabetes Mellitus, GERD/Reflux, Hyperlipidemia, Hypertension, Osteoarthritis (OA), Pneumonia, Renal Disease, Sleep Apnea/CPAP/BIPAP Additional Past Medical History / Comment(s): [place] leukemia recently diagnosed and started oral chemo 10/10/19, IDDM type II, pt states he occasionally has hypoglycemia during middle of night, arthritis bilateral hands and occasionally in bilateral knees, gout R foot, WILLAM with Cpap use. ckd. History of Any Multi-Drug Resistant Organisms: None Reported Past Surgical History: Cholecystectomy, Hernia Repair Additional Past Surgical History / Comment(s): 09/2019 bone marrow biopsy, incisional hernia, colonoscopy with benign polyps. Right cataract removal with IOL implant Past Anesthesia/Blood Transfusion Reactions: No Reported Reaction Past Psychological History: No Psychological Hx Reported Smoking Status: Never smoker Past Alcohol Use History: None Reported Past Drug Use History: None Reported - Past Family History Father Family Medical History: Diabetes Mellitus Additional Family Medical History / Comment(s): Father is 97 yrs old. Mother Family Medical History: Dementia Additional Family Medical History / Comment(s): Mother of dementia at the age of 85yrs. General Exam Limitations: no limitations General appearance: alert, in no apparent distress Head exam: Present: atraumatic, normocephalic Eye exam: Present: normal appearance. Absent: scleral icterus, conjunctival injection ENT exam: Present: mucous membranes dry Neck exam: Present: normal inspection Respiratory exam: Present: normal lung sounds bilaterally. Absent: respiratory distress, wheezes, rales, rhonchi, stridor Cardiovascular Exam: Present: regular rate, normal rhythm, normal heart sounds. Absent: systolic murmur, diastolic murmur, rubs, gallop GI/Abdominal exam: Present: soft. Absent: distended, tenderness, guarding, rebound, rigid, mass Extremities exam: Present: normal inspection, normal capillary refill. Absent: pedal edema, calf tenderness Back exam: Present: normal inspection Neurological exam: Present: alert, oriented X3, CN II-XII intact, other (Mentation does seem delayed but with appropriate responses.). Absent: motor sensory deficit Skin exam: Present: warm, dry, intact, normal color. Absent: rash Course Vital Signs 04/12/23 15:46 Temperature 97.8 F Pulse Rate 74 Respiratory 18 Rate Blood Pressure 144/75 O2 Sat by Pulse 97 Oximetry EKG Findings - EKG Results: EKG: interpreted by OTILIO, sinus rhythm (Rate 64 bpm), normal axis, normal ST/T Medical Decision Making - Medical Decision Making This patient is 72-year-old man with history of CML who does not seem to be his usual self as reported by both patient and his . The workup here does reveal hyperglycemia, but that does not seem to calm from the patient's symptoms. The patient be admitted for blood sugar control and for neurology consultation. The patient had chest x-ray which I interpreted as negative for infiltrate, pneumothorax, congestive heart failure The patient had CT of the brain which I interpreted as being negative for acute bony injury or intracranial hemorrhage. Was pt. sent in by a medical professional or institution (, PA, IT SERVICE DELIVERY MANAGER, urgent care, hospital, or skilled nursing...) When possible be specific @ -[No] Did you speak to anyone other than the patient for history (EMS, parent, family, police, friend...)? What history was obtained from this source @ -[The patient's did give history Did you review nursing and triage notes (agree or disagree)? Why? @ -[I reviewed and agree with nursing and triage notes] Were old charts reviewed (outside hosp., previous admission, EMS record, old EKG, old radiological studies, urgent care reports/EKG's, skilled nursing records)? Report findings @ -[No old charts were reviewed] Differential Diagnosis (chest pain, altered mental status, abdominal pain women, abdominal pain men, vaginal bleeding, weakness, fever, dyspnea, syncope, headache, dizziness, GI bleed, back pain, seizure, CVA, palpatations, mental health, musculoskeletal)? @ -[Differential Altered Mental Status: Hypoglycemia, DKA, hypercapnia, ETOH, overdose, CO poisoning, trauma, myxedema coma, HTN encephalopathy, infection, encephalitis, psychosis, intercranial hemorrhage, hepatic encephalopathy, meningitis, CVA, this is not meant to be an all-inclusive list EKG interpreted by me (3pts min.). @ -[As above] X-rays interpreted by me (1pt min.). @ -[As above CT interpreted by me (1pt min.). @ -[As above U/S interpreted by me (1pt. min.). @ -[None done] What testing was considered but not performed or refused? (CT, X-rays, U/S, labs)? Why? @ -[None] What meds were considered but not given or refused? Why? @ -[None] Did you discuss the management of the patient with other professionals (professionals i.e. , PA, IT SERVICE DELIVERY MANAGER, lab, RT, psych nurse, clinical social work aide, gold burnisher, teacher, training officer, case liner)? Give summary @ -[Case discussed with admitting physician Was smoking cessation discussed for >3mins.? @ -[No] Was critical care preformed (if so, how long)? @ -[No] Were there social determinants of health that impacted care today? How? (Ho melessness, low income, unemployed, alcoholism, drug addiction, transportation, low edu. Level, literacy, decrease access to med. care, detention, rehab)? @ -[No] Was there de-escalation of care discussed even if they declined (Discuss DNR or withdrawal of care, Hospice)? DNR status @ -[No] What co-morbidities impacted this encounter? (DM, HTN, Smoking, COPD, CAD, Cancer, CVA, ARF, Chemo, Hep., AIDS, mental health diagnosis, sleep apnea, morbid obesity)? @ -[None] Was patient admitted / discharged? Hospital course, mention meds given and route, prescriptions, significant lab abnormalities, going to OR and other pertinent info. @ -[The patient is admitted to have further care for hyperglycemia and also to have neurology consultation Undiagnosed new problem with uncertain prognosis? @ -[No] Drug Therapy requiring intensive monitoring for toxicity (Heparin, Nitro, Insulin, Cardizem)? @ -[No] Were any procedures done? @ -[No] Diagnosis/symptom? @ -[Acute hyperglycemia Acute altered mental status Acute, or Chronic, or Acute on Chronic? @ -[default] Uncomplicated (without systemic symptoms) or Complicated (systemic symptoms)? @ -[Uncomplicated Side effects of treatment? @ -[No] Exacerbation, Progression, or Severe Exacerbation? @ -[No] Poses a threat to life or bodily function? How? (Chest pain, USA, ME, pneumonia, PE, COPD, DKA, ARF, appy, cholecystitis, CVA, Diverticulitis, Homicidal, Suicidal, threat to staff... and all critical care pts) @ -[No] - Lab Data Result diagrams: 04/14/23 13:00 04/15/23 04:22 Lab Results 04/12/23 04/12/23 04/12/23 Range/Units 19:21 19:21 19:21 WBC 8.8 (3.8-10.6) k/uL RBC 3.71 L (4.30-5.90) m/uL Hgb 12.1 L (13.0-17.5) gm/dL Hct 37.9 L (39.0-53.0) % MCV 102.2 H (80.0-100.0) fL MCH 32.6 (25.0-35.0) pg MCHC 31.9 (31.0-37.0) g/dL RDW 13.2 (11.5-15.5) % Plt Count 148 L (150-450) k/uL MPV 9.1 Neutrophils % 69 % Lymphocytes % 17 % Monocytes % 9 % Eosinophils % 3 % Basophils % 0 % Neutrophils # 6.1 (1.3-7.7) k/uL Lymphocytes # 1.5 (1.0-4.8) k/uL Monocytes # 0.8 (0-1.0) k/uL Eosinophils # 0.3 (0-0.7) k/uL Basophils # 0.0 (0-0.2) k/uL Macrocytosis Slight PT 10.0 (9.0-12.0) sec INR 0.9 (<1.2) APTT 20.9 L (22.0-30.0) sec Sodium 136 L (137-145) mmol/L Potassium 4.5 (3.5-5.1) mmol/L Chloride 103 (98-107) mmol/L Carbon Dioxide 27 (22-30) mmol/L Anion Gap 6 mmol/L BUN 46 H (9-20) mg/dL Creatinine 1.96 H (0.66-1.25) mg/dL Est GFR (CKD-EPI)AfAm 38 (>60 ml/min/1.73 sqM) Est GFR (CKD-EPI)NonAf 33 (>60 ml/min/1.73 sqM) Glucose 442 H (74-99) mg/dL POC Glucose (mg/dL) (70-110) mg/dL POC Glu Apparel Fashion Designer ID Plasma Lactic Acid Michael (0.7-2.0) mmol/L Calcium 10.7 H (8.4-10.2) mg/dL Magnesium 1.9 (1.6-2.3) mg/dL Total Bilirubin 0.5 (0.2-1.3) mg/dL AST 27 (17-59) U/L ALT 36 (4-49) U/L Alkaline Phosphatase 106 (38-126) U/L Troponin I (0.000-0.034) ng/mL Total Protein 6.8 (6.3-8.2) g/dL Total Protein (PEP) (6.2-8.2) d/dL Albumin 3.8 (3.5-5.0) g/dL Albumin (PEP) (3.8-4.9) d/dL Vjprj-0-Osmfeanxn (0.10-0.40) d/dL Azdii-2-Kmmeyfwqk (0.60-1.00) d/dL Beta Globulins (0.60-1.30) d/dL Gamma Globulins (0.70-1.50) d/dL PEP Interpretation Serum BENTLEY Interpret 0604/12/23 04/12/23 Range/Units 19:21 19:21 19:21 WBC (3.8-10.6) k/uL RBC (4.30-5.90) m/uL Hgb (13.0-17.5) gm/dL Hct (39.0-53.0) % MCV (80.0-100.0) fL MCH (25.0-35.0) pg MCHC (31.0-37.0) g/dL RDW (11.5-15.5) % Plt Count (150-450) k/uL MPV Neutrophils % % Lymphocytes % % Monocytes % % Eosinophils % % Basophils % % Neutrophils # (1.3-7.7) k/uL Lymphocytes # (1.0-4.8) k/uL Monocytes # (0-1.0) k/uL Eosinophils # (0-0.7) k/uL Basophils # (0-0.2) k/uL Macrocytosis PT (9.0-12.0) sec INR (<1.2) APTT (22.0-30.0) sec Sodium (137-145) mmol/L Potassium (3.5-5.1) mmol/L Chloride (98-107) mmol/L Carbon Dioxide (22-30) mmol/L Anion Gap mmol/L BUN (9-20) mg/dL Creatinine (0.66-1.25) mg/dL Est GFR (CKD-EPI)AfAm (>60 ml/min/1.73 sqM) Est GFR (CKD-EPI)NonAf (>60 ml/min/1.73 sqM) Glucose (74-99) mg/dL POC Glucose (mg/dL) (70-110) mg/dL POC Glu Apparel Fashion Designer ID Plasma Lactic Acid Michael 1.4 (0.7-2.0) mmol/L Calcium (8.4-10.2) mg/dL Magnesium (1.6-2.3) mg/dL Total Bilirubin (0.2-1.3) mg/dL AST (17-59) U/L ALT (4-49) U/L Alkaline Phosphatase (38-126) U/L Troponin I 0.032 (0.000-0.034) ng/mL Total Protein (6.3-8.2) g/dL Total Protein (PEP) 6.8 (6.2-8.2) d/dL Albumin (3.5-5.0) g/dL Albumin (PEP) 3.9 (3.8-4.9) d/dL Bcuqp-1-Nplsvwnwz 0.22 (0.10-0.40) d/dL Rvgfe-2-Uzduvnbin 0.75 (0.60-1.00) d/dL Beta Globulins 0.79 (0.60-1.30) d/dL Gamma Globulins 1.24 (0.70-1.50) d/dL PEP Interpretation Serum BENTLEY Interpret 04/12/23 Range/Units 20:47 WBC (3.8-10.6) k/uL RBC (4.30-5.90) m/uL Hgb (13.0-17.5) gm/dL Hct (39.0-53.0) % MCV (80.0-100.0) fL MCH (25.0-35.0) pg MCHC (31.0-37.0) g/dL RDW (11.5-15.5) % Plt Count (150-450) k/uL MPV Neutrophils % % Lymphocytes % % Monocytes % % Eosinophils % % Basophils % % Neutrophils # (1.3-7.7) k/uL Lymphocytes # (1.0-4.8) k/uL Monocytes # (0-1.0) k/uL Eosinophils # (0-0.7) k/uL Basophils # (0-0.2) k/uL Macrocytosis PT (9.0-12.0) sec INR (<1.2) APTT (22.0-30.0) sec Sodium (137-145) mmol/L Potassium (3.5-5.1) mmol/L Chloride (98-107) mmol/L Carbon Dioxide (22-30) mmol/L Anion Gap mmol/L BUN (9-20) mg/dL Creatinine (0.66-1.25) mg/dL Est GFR (CKD-EPI)AfAm (>60 ml/min/1.73 sqM) Est GFR (CKD-EPI)NonAf (>60 ml/min/1.73 sqM) Glucose (74-99) mg/dL POC Glucose (mg/dL) 447 H (70-110) mg/dL POC Glu Apparel Fashion Designer Manda Martínez Plasma Lactic Acid Michael (0.7-2.0) mmol/L Calcium (8.4-10.2) mg/dL Magnesium (1.6-2.3) mg/dL Total Bilirubin (0.2-1.3) mg/dL AST (17-59) U/L ALT (4-49) U/L Alkaline Phosphatase (38-126) U/L Troponin I (0.000-0.034) ng/mL Total Protein (6.3-8.2) g/dL Total Protein (PEP) (6.2-8.2) d/dL Albumin (3.5-5.0) g/dL Albumin (PEP) (3.8-4.9) d/dL Mzjjo-3-Guphencxr (0.10-0.40) d/dL Aypaf-7-Rklvdwnqe (0.60-1.00) d/dL Beta Globulins (0.60-1.30) d/dL Gamma Globulins (0.70-1.50) d/dL PEP Interpretation Serum BENTLEY Interpret Disposition Clinical Impression: Hyperglycemia, Altered mental status Disposition: ADMITTED IP TO THIS HOSP Condition: Good Is patient prescribed a controlled substance at d/c from ED?: No
[2023-04-12] MEDS ORDERED: ONDANSETRON 4 MG/2 ML VIAL IVP PRN (22:52)
[2023-04-12] MEDS ORDERED: NALOXONE 0.4 MG/ML 1 ML VIAL IV PRN (22:52)
[2023-04-12] MEDS ORDERED: SODIUM CHLORIDE 0.9% 1,000 ML IV SCH (23:00)
[2023-04-13 05:29] LABS: Glucose,Whole Blood 424 mg/dL (70-110)
[2023-04-13] MEDS: LEVOTHYROXINE 50 MCG TAB PO SCH (06:01)
[2023-04-13 07:38] LABS: Glucose,Whole Blood 376 mg/dL (70-110)
[2023-04-13] MEDS ORDERED: hydrALAZINE HCL 20 MG/ML 1 ML VIAL IVP PRN (08:09)
--- NOTE | 2023-04-13 08:13 | P.NPCON ---
History of Present Illness - Reason for Consult chronic renal failure - History of Present Illness Reason for consultation: Chronic kidney disease History of present illness: Patient is a 72-year-old male seen in renal consultation for chronic kidney disease. Patient has chronic kidney disease stage IV secondary to diabetic kidney disease with recent creatinine near 2.7-2.9. Creatinine this admission was 1.96. Patient came to the hospital due to nausea and difficulty walking. He denies falling or syncopal episodes. Family also noticed slurring of speech. Brain CT did not show any acute intracranial abnormality. Chest x-ray showed no acute cardiopulmonary process. He received 1 L normal saline bolus in the ER and is currently receiving normal saline at 75 mL an hour. Admits to good urine output. No hematuria or dysuria. He does take Bumex at home which is currently held. He denies use of nonsteroidals. Denies any cardiac stenting. Patient has long-standing history of diabetes. Blood sugars were over 500 initially and 376 this morning. Blood pressure has been on the higher side. Afebrile. On room air. No chest pain or shortness of breath. Vital signs are stable. General: No acute distress. HEENT: Head exam is unremarkable. LUNGS: No audible rhonchi or wheezes. HEART: Rate and Rhythm are regular. ABDOMEN: Soft, obese. EXTREMITITES: Trace edema. Past Medical History Past Medical History: Asthma, Cancer, Diabetes Mellitus, GERD/Reflux, Hyperlipidemia, Hypertension, Osteoarthritis (OA), Pneumonia, Renal Disease, Sleep Apnea/CPAP/BIPAP Additional Past Medical History / Comment(s): [place] leukemia recently diagnosed and started oral chemo 10/10/19, IDDM type II, pt states he occasionally has hypoglycemia during middle of night, arthritis bilateral hands and occasionally in bilateral knees, gout R foot, WILLAM with Cpap use. ckd. History of Any Multi-Drug Resistant Organisms: None Reported Past Surgical History: Cholecystectomy, Hernia Repair Additional Past Surgical History / Comment(s): 09/2019 bone marrow biopsy, incisional hernia, colonoscopy with benign polyps. Right cataract removal with IOL implant Past Anesthesia/Blood Transfusion Reactions: No Reported Reaction Past Psychological History: No Psychological Hx Reported Additional Psychological History / Comment(s): Pt resides with his spouse. He is independent. He has a Cpap machine. Smoking Status: Never smoker Past Alcohol Use History: None Reported Additional Past Alcohol Use History / Comment(s): The patient is a lifelong nonsmoker, rare alcohol use. Past Drug Use History: None Reported - Past Family History Father Family Medical History: Diabetes Mellitus Additional Family Medical History / Comment(s): Father is 97 yrs old. Mother Family Medical History: Dementia Additional Family Medical History / Comment(s): Mother of dementia at the age of 85yrs. Medications and Allergies Home Medications Medication Instructions Recorded Confirmed Type Bumetanide [BUMEX] 2 mg PO DAILY 09/21/19 04/12/23 History INSULIN ASPART (NovoLOG) [NovoLOG 15 unit SQ AC-TID 12/02/20 04/12/23 History (formulary)] Insulin Glargine [Lantus Vial] 22 unit SQ HS 12/02/20 04/12/23 History Bumetanide [Bumex] 1 mg PO HS 04/12/23 04/12/23 History Colchicine [Colcrys] 0.6 mg PO DAILY PRN 04/12/23 04/12/23 History Famotidine 20 mg PO DAILY PRN 04/12/23 04/12/23 History Febuxostat [Uloric] 40 mg PO DAILY 04/12/23 04/12/23 History Ferrous Sulfate [Feosol] 325 mg PO TID 04/12/23 04/12/23 History Imatinib Mesylate [Gleevec] 400 mg PO HS@199904/12/23 04/12/23 History Levothyroxine Sodium [Synthroid] 50 mcg PO DAILY 04/12/23 04/12/23 History Magnesium Oxide 420mg 420 mg PO DAILY 04/12/23 04/12/23 History Simvastatin [Zocor] 10 mg PO HS 04/12/23 04/12/23 History Sucralfate [Carafate] 1 gm PO ACHS 04/12/23 04/12/23 History calcitrioL [Rocaltrol] 0.25 mcg PO MOTUWETHFR 04/12/23 04/12/23 History carvediloL [Coreg] 12.5 mg PO BID 04/12/23 04/12/23 History Allergies Allergy/AdvReac Type Severity Reaction Status Date / Time lisinopril Allergy Unknown Verified 04/12/23 18:26 TIDE LAUNDRY SOAP Allergy Severe Rash/Hives Uncoded 04/12/23 18:26 Physical Exam Vitals: Vital Signs Temp Pulse Pulse Resp BP BP Pulse Ox 04/13/23 06:59 98.4 F 65 16 184/68 99 04/13/23 02:06 97.7 F 72 16 169/76 95 04/12/23 23:30 16 04/12/23 15:46 97.8 F 74 18 144/75 97 Intake and Output 04/12/23 04/13/23 04/13/23 22:59 06:59 14:59 Other: Voiding Method Toilet # Voids 1 Weight 136.078 kg 136.078 kg Results - Lab Results Most recent lab results Calcium 10.7 mg/dL (8.4-10.2) H 04/12/23 19:21 Magnesium 1.9 mg/dL (1.6-2.3) 04/12/23 19:21 04/12/23 19:21 04/12/23 19:21 Assessment and Plan Plan: Assessment: 1. Chronic kidney disease stage IV with recent creatinine in the range of 2.7- 2.9. Etiology is diabetic kidney disease and cardiorenal syndrome. Creatinine on admission was 1.96 which is better than baseline. Patient had vein mapping done outpatient. UA from November 2022 showed no proteinuria or RBCs. 2. Diabetes mellitus. Blood sugars elevated. 3. Generalized weakness. Neurology consulted. 4. Hypertension with chronic kidney disease. 5. Chronic kidney disease mineral bone disease maintained on calcitriol. Plan: Hep-Lock IV fluids. Blood sugar control. Add hydralazine 25 mg 3 times daily. Hold for systolic blood pressure less than 120. Encourage oral intake. Avoid nephrotoxins. Continue to monitor renal function and urine output. Thank you for the consultation. I will continue to follow the patient due during his hospital stay.
[2023-04-13] MEDS: INSULIN ASPART (NovoLOG) 100 UNIT/ML VIAL SQ SCH ×3 (08:17→17:31)
[2023-04-13] MEDS: hydrALAZINE HCL 25 MG TAB PO SCH ×3 (08:41→21:15)
[2023-04-13] MEDS: SUCRALFATE 1 GM TAB PO SCH ×4 (08:41→21:15)
[2023-04-13] MEDS: FAMOTIDINE 20 MG TAB PO SCH (08:42)
[2023-04-13] MEDS: FERROUS SULFATE 325 MG TAB PO SCH ×3 (08:42→21:15)
[2023-04-13] MEDS: MAGNESIUM OXIDE 400 MG TAB PO SCH (08:42)
[2023-04-13] MEDS: carvediloL 12.5 MG TAB PO SCH ×2 (08:42→17:32)
[2023-04-13] MEDS: allopurinoL 100 MG TAB PO SCH ×2 (08:42→21:15)
[2023-04-13] MEDS ORDERED: FAMOTIDINE 20 MG TAB PO SCH (09:00)
--- NOTE | 2023-04-13 09:44 | P.CNNES ---
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 She stated that the later in the morning he noticed his symptoms and felt off balance and felt speech is off. Per the ED note, his notified them that the patient was having word finding difficulty with delayed answering. He also was feeling dizzy when he got up. The ED note was having generalized weakness with lack of energy. Patient denies of any focal weakness or numbness. He feels back to baseline. She denies any history of stroke or TIA. Patient is on aspirin low- dose. He denies any coronary artery stenting. Denies any atrial fibrillation. He feels back to baseline. Some of the workup during his hospital visit consisted of: Calcium 7.7. Creatinine is 1.96 and the BUN 46. The sugar is in the 400s CT of the head is reported as moderate burden of chronic small vessel ischemic disease. No acute intracranial abnormality seen. The body report is mentioned that the patient has benign bit basal ganglia calcification on the left. I personally reviewed images and I agree with the report. Review of Systems Review of system: The 12 point system was reviewed and apparent positive and negative per HPI. 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 ckd. History of Any Multi-Drug Resistant Organisms: None Reported Past Surgical History: Cholecystectomy, Hernia Repair Additional Past Surgical History / Comment(s): 09/2019 bone marrow biopsy, incisional hernia, colonoscopy with benign polyps. Right cataract removal with IOL implant Past Anesthesia/Blood Transfusion Reactions: No Reported Reaction Past Psychological History: No Psychological Hx Reported Additional Psychological History / Comment(s): Pt resides with his spouse. He is independent. He has a Cpap machine. Smoking Status: Never smoker Past Alcohol Use History: None Reported Additional Past Alcohol Use History / Comment(s): The patient is a lifelong nonsmoker, rare alcohol use. Past Drug Use History: None Reported - Past Family History Father Family Medical History: Diabetes Mellitus Additional Family Medical History / Comment(s): Father is 97 yrs old. Mother Family Medical History: Dementia Additional Family Medical History / Comment(s): Mother of dementia at the age of 85yrs. Medications and Allergies Home Medications Medication Instructions Recorded Confirmed Type Bumetanide [BUMEX] 2 mg PO DAILY 09/21/19 04/12/23 History INSULIN ASPART (NovoLOG) [NovoLOG 15 unit SQ AC-TID 12/02/20 04/12/23 History (formulary)] Insulin Glargine [Lantus Vial] 22 unit SQ HS 12/02/20 04/12/23 History Bumetanide [Bumex] 1 mg PO HS 04/12/23 04/12/23 History Colchicine [Colcrys] 0.6 mg PO DAILY PRN 04/12/23 04/12/23 History Famotidine 20 mg PO DAILY PRN 04/12/23 04/12/23 History Febuxostat [Uloric] 40 mg PO DAILY 04/12/23 04/12/23 History Ferrous Sulfate [Feosol] 325 mg PO TID 04/12/23 04/12/23 History Imatinib Mesylate [Gleevec] 400 mg PO HS@199904/12/23 04/12/23 History Levothyroxine Sodium [Synthroid] 50 mcg PO DAILY 04/12/23 04/12/23 History Magnesium Oxide 420mg 420 mg PO DAILY 04/12/23 04/12/23 History Simvastatin [Zocor] 10 mg PO HS 04/12/23 04/12/23 History Sucralfate [Carafate] 1 gm PO ACHS 04/12/23 04/12/23 History calcitrioL [Rocaltrol] 0.25 mcg PO MOTUWETHFR 04/12/23 04/12/23 History carvediloL [Coreg] 12.5 mg PO BID 04/12/23 04/12/23 History Allergies Allergy/AdvReac Type Severity Reaction Status Date / Time lisinopril Allergy Unknown Verified 04/12/23 18:26 TIDE LAUNDRY SOAP Allergy Severe Rash/Hives Uncoded 04/12/23 18:26 Physical Examination - Vital Signs Vital Signs: Vital Signs Temp Pulse Pulse Resp BP BP Pulse Ox 04/13/23 06:59 98.4 F 65 16 184/68 99 04/13/23 02:06 97.7 F 72 16 169/76 95 04/12/23 23:30 16 04/12/23 15:46 97.8 F 74 18 144/75 97 Intake and Output 04/12/23 04/13/23 04/13/23 22:59 06:59 14:59 Other: Voiding Method Toilet Toilet # Voids 1 Weight 136.078 kg 136.078 kg GENERAL: The patient is a morbid obese gentleman who sitting in a recliner chair and not in acute distress. NEUROLOGICAL: Higher mental function: The patient is awake, alert, oriented to self, place and time. Patient is following commands. No aphasia and no neglect. Cranial nerves: The pupils are round, equal and reactive to light and accommodation. Visual espinal are full to confrontation throughout. Extraocular movement is intact no nystagmus is noted. Facial sensation is normal to touch throughout. The facial strength is normal throughout. Hearing is mildly decreased bilaterally to hand rub. Tongue is midline and moved [id number] without any difficulty. No dysarthria is noted. Shoulder shrug is normal bilaterally. Motor: Gait is slow and seems antalgic (per patient that is baseline). The strength is 5 over 5 throughout. Normal tone and bulk. Cerebellum: Normal finger to nose bilaterally. Sensation: Sensation is normal to touch throughout. Reflexes (right/left): 2+ throughout except ankles are 1+ Plantars are mute bilaterally. Results - Laboratory Findings CBC and BMP: 04/12/23 19:21 04/12/23 19:21 Abnormal Lab Findings: Abnormal Labs 04/12/23 04/12/23 04/12/23 19:21 19:21 19:21 RBC 3.71 L Hgb 12.1 L Hct 37.9 L MCV 102.2 H Plt Count 148 L APTT 20.9 L Sodium 136 L BUN 46 H Creatinine 1.96 H Glucose 442 H POC Glucose (mg/dL) Calcium 10.7 H 04/12/23 04/13/23 04/13/23 20:47 00:02 07:35 RBC Hgb Hct MCV Plt Count APTT Sodium BUN Creatinine Glucose POC Glucose (mg/dL) 447 H 424 H 376 H Calcium Assessment and Plan Assessment: This is a 72-year-old gentleman with history of diabetes, hypertension, CML on chemotherapy who presented because of episode of generalized weakness, fatigue, off-balance and speech difficulty. Per he was having word finding difficulty. On presentation his sugar was in the 400s. Episode of generalized weakness, word finding difficulty and off-balance: Possibly due to metabolic derangement. Cannot exclude transient ischemic attack Hyperglycemia and sugar is in the 400s Diabetes mellitus Hypertension Hypercholesterolemia History of CML on chemotherapy Chronic kidney insufficiency Plan: I ordered MRI the brain, carotid duplex, 2-D echo, lipid panel. The generalized weakness I ordered TSH, vitamin B12, folate and ammonia level. I resumed his home dose of aspirin 81 mg daily. Patient has any stroke on the MRI and then I'll add Plavix in addition to the aspirin. He is on Lipitor 10 mg daily at bedtime. Every 4 hours neuro checks Cardiac monitoring Consulted PT and OT Recommend euglycemia and we'll defer the management to the primary team We'll defer the rest of the medical management to primary team For DVT prophylaxis I started the patient subcu heparin 5000 at every 12 hours Plan discussed with the patient. Thank you for the consultation Time with Patient: Greater than 30
[2023-04-13 10:52] LABS: African American GFR (CKD) 44 (>60 ml/min/1.73 sqM); Anion Gap 9 mmol/L; Blood Urea Nitrogen 45 mg/dL (9-20); Calcium 10.5 mg/dL (8.4-10.2); Carbon Dioxide 20 mmol/L (22-30); Chloride 107 mmol/L (98-107); Glucose 411 mg/dL (74-99); Magnesium 1.8 mg/dL (1.6-2.3); Non-African American GFR(CKD) 38 (>60 ml/min/1.73 sqM); Potassium 4.4 mmol/L (3.5-5.1); Sodium 136 mmol/L (137-145)
[2023-04-13 12:03] LABS: Glucose,Whole Blood 309 mg/dL (70-110)
[2023-04-13] MEDS ORDERED: COLCHICINE 0.6 MG EACH PO PRN (12:29)
[2023-04-13] MEDS ORDERED: FAMOTIDINE 20 MG TAB PO PRN (12:29)
--- NOTE | 2023-04-13 12:31 | CA ---
Transthoracic Echo Report Name: Maulik Ascencio Age: 72 Gender: M : 1950 Exam Date: 04/13/2023 10:57 Exam Location: [place] [facility] Ht (in): 71 Wt (lb): 300 Ordering Physician: Alton Toney MD Attending/Referring Phys: Rema Leal MD Certified Ophthalmic Technologist Svetlana Persaud [facility] Procedure CPT: Indications: stroke Cardiac Hx: Technical Quality: Technically difficult study Contrast 1: Total Dose (mL): Contrast 2: Total Dose (mL): MEASUREMENTS (Male / Female) Normal Values 2D ECHO LV Diastolic Diameter PLAX 4.8 cm 4.2 - 5.9 / 3.9 - 5.3 cm LV Systolic Diameter PLAX 3.7 cm IVS Diastolic Thickness 1.4 cm 0.6 - 1.0 / 0.6 - 0.9 cm LVPW Diastolic Thickness 1.3 cm 0.6 - 1.0 / 0.6 - 0.9 cm LV Relative Wall Thickness 0.5 LVOT Diameter 2.0 cm M-MODE Aortic Root Diameter MM 3.6 cm LA Systolic Diameter MM 5.0 cm LA Ao Ratio MM 1.4 AV Cusp Separation MM 2.2 cm DOPPLER AV Peak Velocity 161.6 cm/s AV Peak Gradient 10.4 mmHg AV Mean Velocity 116.5 cm/s AV Mean Gradient 5.9 mmHg AV Velocity Time Integral 35.9 cm LVOT Peak Velocity 95.3 cm/s LVOT Peak Gradient 3.6 mmHg LVOT Velocity Time Integral 22.1 cm LVOT Stroke Volume 69.2 cm??? LVOT Stroke Volume Index 27.6 ml/m??? LVOT Cardiac Index 1684.1 cm???/min???m??? AV Area Cont Eq vti 1.9 cm??? AV Area Cont Eq pk 1.8 cm??? Mitral E Point Velocity 40.4 cm/s Mitral A Point Velocity 86.3 cm/s Mitral E to A Ratio 0.5 MV Deceleration Time 325.9 ms LV E' Lateral Velocity 6.1 cm/s Mitral E to LV E' Lateral Ratio 6.6 LV E' Septal Velocity 5.4 cm/s Mitral E to LV E' Septal Ratio 7.4 Right Atrial Pressure 8.0 mmHg FINDINGS Left Ventricle Normal left ventricular size, systolic function with no obvious regional wall motion abnormalities. The ejection fraction is visually estimated at 55-60%. Moderately increased left ventricular wall thickness. Right Ventricle Mild right ventricular dilatation. Right Atrium Mild right atrial dilatation. Left Atrium Normal left atrial size. Mitral Valve Structurally normal mitral valve without significant stenosis or prolapse. There is no mitral regurgitation. Aortic Valve Structurally normal aortic valve without significant sclerosis or stenosis. There is no aortic regurgitation. Tricuspid Valve Structurally normal tricuspid valve without significant stenosis. No tricuspid regurgitation. Pulmonic Valve Structurally normal pulmonic valve without significant stenosis. There is no pulmonic regurgitation. Pericardium No pericardial effusion. Aorta Normal aortic root dimension. CONCLUSIONS Normal left ventricular ejection fraction 55-60% Moderate increased left ventricular wall thickness No tricuspid regurgitation No pericardial effusion Previewed by: Dr. Harish Rizzo DO (Electronically Signed) Final Date: 13 April 2023 12:30
[2023-04-13] MEDS: ASPIRIN 81 MG PO SCH (12:38)
--- NOTE | 2023-04-13 14:06 | MR ---
EXAMINATION TYPE: MR brain wo con DATE OF EXAM: 04/13/2023 1:13 PM COMPARISON: 04/12/2023. CLINICAL INDICATION:Male, 72 years old with history of aphasia, dizzy, Aphasia, dizzy. TECHNIQUE: Multi planar, multi sequence imaging was performed through the brain including: T1, T2, In version recovery, Diffusion weighted imaging, and gradient echo imaging. No gadolinium was given. FINDINGS: Cerebral atrophy with proportional dilation to the ventricular system. High T1 signal withi n the left basal ganglia with associated blooming artifact and surrounding curvilinear surrounding mo stly anterior restricted diffusion. The mcnally-white junctions, ventricular system, and cisterns appear unremarkable. Scattered foci of high T2 signal intensity are seen within the periventricular white matter. Midline structures show no abnormality. The bone marrow signal is within normal limits. Paranasal sinuses and mastoid air cells: No significant paranasal sinus disease. Visualized orbits: Bilateral aphakia IMPRESSION: 1. Left basal ganglia hemorrhagic CVA. 2. Scattered nonspecific white matter changes.
--- NOTE | 2023-04-13 16:23 | US ---
EXAMINATION TYPE: US carotid duplex BILAT DATE OF EXAM: 04/13/2023 COMPARISON: NONE CLINICAL INDICATION: Male, 72 years old with history of stroke; Weakness TECHNIQUE: Carotid duplex ultrasound examination. Indirect Doppler criteria was utilized. FINDINGS: EXAM MEASUREMENTS: RIGHT: Peak Systolic Velocity (PSV) cm/sec ----- Right CCA: 66.9 ----- Right ICA: 104 ----- Right ECA: 96.0 ICA/CCA ratio: 1.6 RIGHT: End Diastole cm/sec ----- Right CCA: 8.5 ----- Right ICA: 19.4 ----- Right ECA: 0.0 LEFT: Peak Systolic Velocity (PSV) cm/sec ----- Left CCA: 110 ----- Left ICA: 127 ----- Left ECA: 111 ICA/CCA ratio: 1.2 LEFT: End Diastole cm/sec ----- Left CCA: 11.7 ----- Left ICA: 14.7 ----- Left ECA: 0.0 VERTEBRALS (direction of flow): Right Vertebral: Antegrade Left Vertebral: Antegrade Rhythm: Normal SHEARING SHED HAND NOTES: No significant stenosis seen Mild atherosclerotic change at both bifurcations. IMPRESSION: No hemodynamically significant internal carotid artery stenosis on either side. Criteria for Assigning % of Stenosis / Diameter reduction (Estimation based on the indirect measurements of the internal carotid artery velocities (ICA PSV). 1. Normal (no stenosis)=ICA PSV < 125 cm/s: ratio < 2.0: ICA EDV<40 cm/s. 2. Less than 50% stenosis=ICA PSV < 125 cm/s: ratio < 2.0: ICA EDV<40 cm/s. 3. 50 to 69% stenosis=ICA PSV of 125 to 230 cm/s: ration 2.0 ? 4.0: ICA EDV 40-100 cm/s. 4. Greater than 70% stenosis to near occlusion= ICA PSV > 230 cm/s: ratio > 4.0: ICA EDV > 100 cm/s. 5. Near occlusion= ICA PSV velocities may be low or undetectable: variable ratio and ICA EDV. 6. Total occlusion=unable to detect flow.
[2023-04-13 17:13] LABS: Glucose,Whole Blood 213 mg/dL (70-110)
[2023-04-13 19:37] LABS: Chol/HDL Ratio 5.94 Ratio; LDL Cholesterol,Calculated 101.4 mg/dL (0.0-131.0)
[2023-04-13] MEDS ORDERED: NON FORMULARY DRUG (Imatinib Mesylate [Gleevec] 400 MG Tablet) PO SCH (20:00)
[2023-04-13 20:22] LABS: Glucose,Whole Blood 97 mg/dL (70-110)
[2023-04-13] MEDS ORDERED: BUMETANIDE 1 MG TAB PO SCH (21:00)
[2023-04-13] MEDS: INSULIN DETEMIR (LEVEMIR) 100 UNIT/ML SYR SQ SCH (21:14)
[2023-04-13] MEDS: HEPARIN SODIUM,PORCINE/PF 5,000 UNIT/0.5 ML SYRINGE SQ SCH (21:14)
[2023-04-13] MEDS: ATORVASTATIN 10 MG TAB PO SCH (21:15)
[2023-04-14 01:50] LABS: Glucose,Whole Blood 155 mg/dL (70-110)
[2023-04-14] MEDS: LEVOTHYROXINE 50 MCG TAB PO SCH (06:10)
[2023-04-14 07:25] LABS: African American GFR (CKD) 35 (>60 ml/min/1.73 sqM); Anion Gap 8 mmol/L; Blood Urea Nitrogen 47 mg/dL (9-20); Calcium 10.8 mg/dL (8.4-10.2); Carbon Dioxide 21 mmol/L (22-30); Chloride 107 mmol/L (98-107); Glucose 178 mg/dL (74-99); Non-African American GFR(CKD) 31 (>60 ml/min/1.73 sqM); Potassium 4.2 mmol/L (3.5-5.1); Sodium 136 mmol/L (137-145)
[2023-04-14 07:36] LABS: Glucose,Whole Blood 205 mg/dL (70-110)
[2023-04-14] MEDS: MAGNESIUM OXIDE 400 MG TAB PO SCH (07:53)
[2023-04-14] MEDS: allopurinoL 100 MG TAB PO SCH ×2 (07:54→20:49)
[2023-04-14] MEDS: HEPARIN SODIUM,PORCINE/PF 5,000 UNIT/0.5 ML SYRINGE SQ SCH (07:54)
[2023-04-14] MEDS: INSULIN ASPART (NovoLOG) 100 UNIT/ML VIAL SQ SCH ×3 (07:54→17:08)
[2023-04-14] MEDS: hydrALAZINE HCL 25 MG TAB PO SCH (07:54)
[2023-04-14] MEDS: carvediloL 12.5 MG TAB PO SCH ×2 (07:54→17:08)
[2023-04-14] MEDS: FAMOTIDINE 20 MG TAB PO SCH (07:54)
[2023-04-14] MEDS: FERROUS SULFATE 325 MG TAB PO SCH ×3 (07:54→20:50)
[2023-04-14] MEDS: ASPIRIN 81 MG PO SCH (07:54)
[2023-04-14] MEDS: BUMETANIDE 1 MG TAB PO SCH (07:55)
[2023-04-14] MEDS: SUCRALFATE 1 GM TAB PO SCH ×4 (07:55→20:50)
[2023-04-14] MEDS ORDERED: SODIUM CHLORIDE 0.9% 250 ML with PAMIDRONATE 60 MG IV ONE ×2 (11:06)
--- NOTE | 2023-04-14 11:07 | P.PN ---
Subjective Patient is seen in follow-up for chronic kidney disease. Renal function stable. Calcium elevated at 10.8. Calcitriol discontinued yesterday. Denies chest pain or shortness of breath. Admits to good urine output. Hemodynamically stable. Has been ambulating. No falls. Vital signs are stable. General: No acute distress. HEENT: Head exam is unremarkable. LUNGS: No audible rhonchi or wheezes. HEART: Rate and Rhythm are regular. ABDOMEN: Nontender, obese. EXTREMITITES: Trace edema. Objective - Vital Signs Vital signs: Vital Signs Temp 97.4 F L 04/14/23 07:25 Pulse 74 04/14/23 07:25 Resp 16 04/14/23 07:25 BP 138/72 04/14/23 07:25 Pulse Ox 98 04/14/23 07:25 FiO2 Intake & Output 04/13/23 04/14/23 04/14/23 18:59 06:59 18:59 Output Total 150 Balance -150 Output: Urine 150 Other: Voiding Method Toilet Toilet Toilet # Voids 0 # Bowel Movements 1 - Labs CBC & Chem 7: 04/12/23 19:21 04/14/23 06:16 Labs: Abnormal Lab Results - Last 24 Hours (Table) 04/13/23 04/13/23 04/13/23 Range/Units 10:10 11:58 17:04 Sodium (137-145) mmol/L Carbon Dioxide (22-30) mmol/L BUN (9-20) mg/dL Creatinine (0.66-1.25) mg/dL Glucose (74-99) mg/dL POC Glucose (mg/dL) 309 H 213 H (70-110) mg/dL Calcium (8.4-10.2) mg/dL Triglycerides 200.00 H (0.00-149.00) mg/dL HDL Cholesterol 28.60 L (40.00-60.00) mg/dL 04/14/23 04/14/23 04/14/23 Range/Units 01:48 06:16 07:31 Sodium 136 L (137-145) mmol/L Carbon Dioxide 21 L (22-30) mmol/L BUN 47 H (9-20) mg/dL Creatinine 2.07 H (0.66-1.25) mg/dL Glucose 178 H (74-99) mg/dL POC Glucose (mg/dL) 155 H 205 H (70-110) mg/dL Calcium 10.8 H (8.4-10.2) mg/dL Triglycerides (0.00-149.00) mg/dL HDL Cholesterol (40.00-60.00) mg/dL Assessment and Plan Plan: Assessment: 1. Chronic kidney disease stage IV with recent creatinine in the range of 2.7- 2.9. Etiology is diabetic kidney disease and cardiorenal syndrome. Creatinine stable at 2.07 today. Patient had vein mapping done outpatient. UA from November 2022 showed no proteinuria or RBCs. 2. Diabetes mellitus. Blood sugars elevated. 3. Generalized weakness. Neurology consulted. 4. Hypertension with chronic kidney disease. 5. Chronic kidney disease mineral bone disease. 6. Hypercalcemia. Calcitriol discontinued 04/13/2023. TSH normal. 7. History of CML. Plan: Off IV fluids. Preserved ejection fraction noted on echocardiogram. Bumex resumed by primary team. Decrease dose to 2 mg once daily. Encourage oral intake. Avoid nephrotoxins. Continue to monitor renal function and urine output. Follow-up pending workup for hypercalcemia. Pamidronate 60 mg IV once today.
[2023-04-14 11:30] LABS: Glucose,Whole Blood 242 mg/dL (70-110)
--- NOTE | 2023-04-14 11:35 | CT ---
EXAMINATION TYPE: CT brain wo con DATE OF EXAM: 04/14/2023 COMPARISON: 04/12/2023 HISTORY: FOLLOW UP BLEED CT DLP: 1098.[address] of the brain was performed. The ventricles, basal cisterns and sulci overlying the cerebral convexities demonstrate mild enlargem ent. Small hyperdensity thought to reflect hemorrhage within the left basal ganglia is essentially unchang ed at 8.7 mm versus 8.9 mm previously. There is no evidence for intracranial hemorrhage or sulcal effacement. There is decreased attenuation about the periventricular white matter and deep white matter of both c erebral hemispheres, compatible with chronic small vessel ischemia. Differential diagnosis does inclu de demyelination. No mass effects are seen.No midline shift. Osseous calvarium is intact. If symptoms persist consider MRI. IMPRESSION: 1. Age related atrophic and chronic small vessel ischemic change without acute intracranial process s een at this time. 2. Left basal ganglia hyperdensity felt to reflect small hemorrhage is not significantly changed in t he interval.
--- NOTE | 2023-04-14 12:54 | P.PN ---
Subjective Progress Note Date: 04/14/23 The patient seen at bedside and he denies of any headache, focal weakness, difficulty getting his words out. He feels somewhat better today compared to yesterday. He denies of any nausea any vomiting. Patient had MRI of the brain on 04/13/2023 it's reported as left basal ganglia hemorrhage CVA. Scattered nonspecific white matter changes. Yesterday I was not notified of the results and neither was anyone was notified of the results upon asking the nurse. Objective - Vital Signs Vital signs: Vital Signs Temp 98.0 F 04/14/23 11:24 Pulse 74 04/14/23 07:25 Resp 16 04/14/23 07:25 BP 138/72 04/14/23 07:25 Pulse Ox 98 04/14/23 07:25 FiO2 Intake & Output 04/13/23 04/14/23 04/14/23 18:59 06:59 18:59 Output Total 150 Balance -150 Weight 128 kg Output: Urine 150 Other: Voiding Method Toilet Toilet Toilet # Voids 0 # Bowel Movements 1 - Exam GENERAL: The patient is a morbid obese gentleman who sitting in a recliner chair and not in acute distress. NEUROLOGICAL: Higher mental function: The patient is awake, alert, oriented to self, place and time. Patient is following commands. No aphasia and no neglect. Cranial nerves: The pupils are round, equal and reactive to light and accommodation. Visual espinal are full to confrontation throughout. Extraocular movement is intact no nystagmus is noted. Facial sensation is normal to touch throughout. The facial strength is normal throughout. Hearing is mildly decreased bilaterally to hand rub. Tongue is midline and moved [id number] without any difficulty. No dysarthria is noted. Shoulder shrug is normal bilaterally. Motor: Gait is slow and seems antalgic (per patient that is baseline). The strength is 5 over 5 throughout. Normal tone and bulk. Cerebellum: Normal finger to nose bilaterally. Sensation: Sensation is normal to touch throughout. Reflexes (right/left): 2+ throughout except ankles are 1+ Plantars are mute bilaterally. Some of the workup during his hospital visit consisted of: Recent blood pressure has been in the 130s to 140s systolic diastolic 60 to 70s. Calcium 7.7. Creatinine is 1.96 and the BUN 46. The sugar is in the 400s B12 is 607 Folate is 10.[address] of the head is reported as moderate burden of chronic small vessel ischemic disease. No acute intracranial abnormality seen. The body report is mentioned that the patient has benign bit basal ganglia calcification on the left. I per sonally reviewed images and I agree with the report. MRI of the brain on 04/13/2023 it's reported as left basal ganglia hemorrhage CVA. Scattered nonspecific white matter changes. Carotid Duplex was reported as no hemodynamically significant internal carotid artery stenosis on either side. 2-D echo was reported as normal left ventricular ejection fraction of 55-60%. Moderate increased left ventricular wall thickness. - Labs CBC & Chem 7: 04/14/23 13:00 04/14/23 06:16 Labs: Abnormal Lab Results - Last 24 Hours (Table) 04/13/23 04/13/23 04/14/23 Range/Units 10:10 17:04 01:48 Sodium (137-145) mmol/L Carbon Dioxide (22-30) mmol/L BUN (9-20) mg/dL Creatinine (0.66-1.25) mg/dL Glucose (74-99) mg/dL POC Glucose (mg/dL) 213 H 155 H (70-110) mg/dL Calcium (8.4-10.2) mg/dL Triglycerides 200.00 H (0.00-149.00) mg/dL HDL Cholesterol 28.60 L (40.00-60.00) mg/dL 04/14/23 04/14/23 04/14/23 Range/Units 06:16 07:31 11:29 Sodium 136 L (137-145) mmol/L Carbon Dioxide 21 L (22-30) mmol/L BUN 47 H (9-20) mg/dL Creatinine 2.07 H (0.66-1.25) mg/dL Glucose 178 H (74-99) mg/dL POC Glucose (mg/dL) 205 H 242 H (70-110) mg/dL Calcium 10.8 H (8.4-10.2) mg/dL Triglycerides (0.00-149.00) mg/dL HDL Cholesterol (40.00-60.00) mg/dL Assessment and Plan Assessment: This is a 72-year-old gentleman with history of diabetes, hypertension, CML on chemotherapy who presented because of episode of generalized weakness, fatigue, off-balance and speech difficulty. Per he was having word finding difficulty. On presentation his sugar was in the 400s. Left basal ganglia bleed likely due to underlying hypertension--no current deficit on exam, headache. Episode of generalized weakness, word finding difficulty and off-balance: Possibly due to metabolic derangement. MRI Brain is negative for acute ischemia but it did reveal left basal ganglia bleed which would not give generalized weakness or speech difficulty---currently back to baseline. Hyperglycemia and sugar is in the 400s Diabetes mellitus Hypertension Hypercholesterolemia History of CML on chemotherapy Chronic kidney insufficiency Plan: I ordered a repeat CT head w/o today to rule out any worsening of bleed and will obtain MRA head to rule out any aneurysm of AV malformation. I stopped his ASA and subq heparin for now (was on home ASA 81mg daily) because of bleed. Will resume once stable. Patient refused to be transferred to a tertiary center for neurosurgical evaluation and would like to stay in our facility. I will have the patient to be transferred to our ICU for closer monitoring and if he he worsening of neurological condition or bleed then will transfer him out. Recommend SBP <140 and will defer the management to ICU and primary team. Every 1 hours neuro checks Cardiac monitoring PT and OT are consulted. Recommend euglycemia and we'll defer the management to the primary team We'll defer the rest of the medical management to primary team For DVT prophylaxis Uses SCD's for now. Plan discussed with the patient and ICU team. Time with Patient: Greater than 30
[2023-04-14 13:38] LABS: Basophils % (A) 0 %; Eosinophils # (A) 0.2 k/uL (0-0.7); Eosinophils % (A) 2 %; HCT 34.2 % (39.0-53.0); HGB 11.2 gm/dL (13.0-17.5); Lymphocytes # (A) 1.3 k/uL (1.0-4.8); Lymphocytes % (A) 13 %; MCH 33.2 pg (25.0-35.0); MCHC 32.6 g/dL (31.0-37.0); MCV 101.8 fL (80.0-100.0); Macrocytosis Slight; Mean Platelet Volume 9.2; Monocytes # (A) 0.8 k/uL (0-1.0); Monocytes % (A) 8 %; Neutrophils # (A) 7.3 k/uL (1.3-7.7); Neutrophils % (A) 75 %; Platelet Count 133 k/uL (150-450); RBC 3.37 m/uL (4.30-5.90); WBC 9.8 k/uL (3.8-10.6)
[2023-04-14] MEDS ORDERED: hydrALAZINE HCL 20 MG/ML 1 ML VIAL IVP STA ×2 (14:22→14:38)
[2023-04-14 16:26] LABS: Magnesium 1.9 mg/dL (1.5-2.4)
[2023-04-14 16:47] LABS: Glucose,Whole Blood 204 mg/dL (70-110)
[2023-04-14] MEDS ORDERED: LABETALOL 5 MG/ML VIAL MDV IVP PRN (16:47)
[2023-04-14] MEDS: ATORVASTATIN 10 MG TAB PO SCH (20:50)
[2023-04-14] MEDS: INSULIN DETEMIR (LEVEMIR) 100 UNIT/ML SYR SQ SCH (20:50)
[2023-04-14] MEDS: hydrALAZINE HCL 20 MG/ML 1 ML VIAL IVP SCH (22:41)
[2023-04-15] MEDS: hydrALAZINE HCL 20 MG/ML 1 ML VIAL IVP SCH ×4 (03:30→15:55)
[2023-04-15 05:00] LABS: African American GFR (CKD) 32 (>60 ml/min/1.73 sqM); Albumin 2.8 g/dL (3.5-5.0); Anion Gap 7 mmol/L; Blood Urea Nitrogen 52 mg/dL (9-20); Calcium 10.4 mg/dL (8.4-10.2); Carbon Dioxide 22 mmol/L (22-30); Chloride 107 mmol/L (98-107); Glucose 145 mg/dL (74-99); Magnesium 1.9 mg/dL (1.6-2.3); Non-African American GFR(CKD) 28 (>60 ml/min/1.73 sqM); Potassium 3.9 mmol/L (3.5-5.1); Sodium 136 mmol/L (137-145)
[2023-04-15] MEDS ORDERED: POTASSIUM CHLORIDE ER 20 MEQ TAB.ER PO SCH (06:00)
[2023-04-15] MEDS: LEVOTHYROXINE 50 MCG TAB PO SCH (06:36)
[2023-04-15] MEDS: carvediloL 12.5 MG TAB PO SCH ×2 (07:08→16:40)
[2023-04-15] MEDS: SUCRALFATE 1 GM TAB PO SCH ×4 (07:08→20:09)
[2023-04-15] MEDS: INSULIN ASPART (NovoLOG) 100 UNIT/ML VIAL SQ SCH ×3 (07:08→16:40)
--- NOTE | 2023-04-15 08:49 | MR ---
EXAMINATION TYPE: MR angio head wo con DATE OF EXAM: 04/15/2023 8:19 AM CLINICAL INDICATION:Male, 72 years old with history of brain bleed basal. rule out aneurysm or av mal form; COMPARISON: MR brain 04/13/2023, CT brain 04/14/2023 Technical: MRA brain: 2D and 3-D [id number] Axial with MIP and 3-D reconstruction. Performed on a separate w orkstation. IV Contrast: none Findings: Motion limited exam. No filling defect on arterial phase imaging of the venous structures to suggest arteriovenous confirmation. There is a left basal ganglia with products not significantly changed fro m prior MRI. Vertebral arteries: The vertebral arteries are patent. Vertebral arteries are codominant. Basilar artery: The basilar artery is intact. The basilar artery bifurcation is normal. Internal Carotid arteries: The cervical, petrous, cavernous and supraclinoid segments are normal. LOWELL: Patent with no evidence of aneurysm. ACOM: Present without evidence of aneurysm. MCA: Patent with no evidence of aneurysm. LINE TECHNICIAN: Patent with no evidence of aneurysm. PCOM: Hypoplastic bilaterally. IMPRESSION: 1. No evidence of intracranial aneurysm or significant stenosis. No evidence for arterial venous mal formation. 2. Stable left basal ganglia hemorrhage.
[2023-04-15] MEDS: BUMETANIDE 1 MG TAB PO SCH (08:51)
[2023-04-15] MEDS: FAMOTIDINE 20 MG TAB PO SCH (08:52)
[2023-04-15] MEDS: MAGNESIUM OXIDE 400 MG TAB PO SCH (08:52)
[2023-04-15] MEDS: FERROUS SULFATE 325 MG TAB PO SCH ×3 (08:52→21:44)
[2023-04-15] MEDS: allopurinoL 100 MG TAB PO SCH ×2 (08:52→20:10)
--- NOTE | 2023-04-15 09:35 | P.CNPUL ---
History of Present Illness Consult date: 04/15/23 Chief complaint: Hemorrhagic stroke History of present illness: 72-year-old male patient male patient with a known history of CML, diabetes mellitus and hypertension and hyperlipidemia chronic kidney disease. The patient came into the emergency department because of difficulties in speech imbalance that started yesterday morning. He was feeling dizzy and in the emergency patient was found to be lacking energy and he was having generalized weakness. He did not have any focal neurological deficit. A CAT scan of the brain was done and it showed chronic small vessel ischemic changes. No acute intracranial abnormalities. There was benign basal ganglia calcification on the left. Based on that, the patient was given an MRI of his brain and neurologic consultation was also involved. MRI of the brain showed a left basal ganglia hemorrhagic CVA and scattered nonspecific white matter disease. A subsequent CAT scan of the brain that was done showed age-related atrophy and left basal ganglia small hemorrhage that has not changed. MRI of the head was also done and it showed no acute intracranial vascular abnormalities. Left basal ganglia hemorrhage was essentially inactive and stable. Noted the patient was taken aspirin on outpatient basis. Currently is not receiving any form of anticoagulants or antiplatelet agents. His blood pressure is stable at 141/61 this morning. The highest blood pressure recorded was 178/83 yesterday. Overall, the patient's condition is improved. Based on the , the patient is having some difficulties and blood pressure control even an outpatient basis. He is undergoing repair Check sputum currently is on room air oxygen. Blood work was reviewed. He has chronic kidney disease and the patient's creatinine is stable for now. His GFR is around 30 consistent with chronic kidney disease, stage III. echoes at 9.8, hemoglobin is 11.2. Carotid Dopplers were also done that showed no evidence of any hemodynamically significant stenosis. The chest x-ray at the time of admission showed no acute process. Review of Systems Constitutional: Reports fatigue, Reports weakness Eyes: denies as per HPI, denies blurred vision, denies bulging eye, denies decreased vision, denies diplopia, denies discharge, denies dry eye, denies irritation, denies itching, denies pain, denies photophobia, denies loss of peripheral vision, denies loss of vision, denies tunnel vision/blind spots Ears: deny: decreased hearing, ear discharge, earache, tinnitus Ears, nose, mouth and throat: Reports as per HPI Breasts: absent: as per HPI, gynecomastia Cardiovascular: Reports as per HPI Respiratory: Reports as per HPI Gastrointestinal: Reports as per HPI Genitourinary: Reports as per HPI Musculoskeletal: Reports as per HPI Musculoskeletal: absent: ankle pain, ankle stiffness, ankle swelling Integumentary: Reports as per HPI Neurological: Reports aphasia, Reports gait dysfunction, Reports weakness Psychiatric: Reports as per HPI Endocrine: Reports as per HPI, Reports fatigue Hematologic/Lymphatic: Reports as per HPI Allergic/Immunologic: Reports as per HPI Past Medical History Past Medical History: Cancer, Diabetes Mellitus, GERD/Reflux, Hyperlipidemia, Hypertension, Osteoarthritis (OA), Pneumonia, Renal Disease, Sleep Apnea/CPAP/BIPAP Additional Past Medical History / Comment(s): [place] leukemia recently diagnosed and started oral chemo 10/10/19, IDDM type II, pt states he oc casionally has hypoglycemia during middle of night, arthritis bilateral hands and occasionally in bilateral knees, gout R foot, WILLAM with Cpap use. ckd. History of Any Multi-Drug Resistant Organisms: None Reported Past Surgical History: Cholecystectomy, Hernia Repair Additional Past Surgical History / Comment(s): 09/2019 bone marrow biopsy, incisional hernia, colonoscopy with benign polyps. Right cataract removal with IOL implant Past Anesthesia/Blood Transfusion Reactions: No Reported Reaction Past Psychological History: No Psychological Hx Reported Additional Psychological History / Comment(s): Pt resides with his spouse. He is independent. He has a Cpap machine. Smoking Status: Never smoker Past Alcohol Use History: None Reported Additional Past Alcohol Use History / Comment(s): The patient is a lifelong nonsmoker, rare alcohol use. Past Drug Use History: None Reported - Past Family History Father Family Medical History: Diabetes Mellitus Additional Family Medical History / Comment(s): Father is 97 yrs old. Mother Family Medical History: Dementia Additional Family Medical History / Comment(s): Mother of dementia at the age of 85yrs. Medications and Allergies Home Medications Medication Instructions Recorded Confirmed Type Bumetanide [BUMEX] 2 mg PO DAILY 09/21/19 04/12/23 History INSULIN ASPART (NovoLOG) [NovoLOG 15 unit SQ AC-TID 12/02/20 04/12/23 History (formulary)] Insulin Glargine [Lantus Vial] 22 unit SQ HS 12/02/20 04/12/23 History Bumetanide [Bumex] 1 mg PO HS 04/12/23 04/12/23 History Colchicine [Colcrys] 0.6 mg PO DAILY PRN 04/12/23 04/12/23 History Famotidine 20 mg PO DAILY PRN 04/12/23 04/12/23 History Febuxostat [Uloric] 40 mg PO DAILY 04/12/23 04/12/23 History Ferrous Sulfate [Feosol] 325 mg PO TID 04/12/23 04/12/23 History Imatinib Mesylate [Gleevec] 400 mg PO HS@199904/12/23 04/12/23 History Levothyroxine Sodium [Synthroid] 50 mcg PO DAILY 04/12/23 04/12/23 History Magnesium Oxide 420mg 420 mg PO DAILY 04/12/23 04/12/23 History Simvastatin [Zocor] 10 mg PO HS 04/12/23 04/12/23 History Sucralfate [Carafate] 1 gm PO ACHS 04/12/23 04/12/23 History calcitrioL [Rocaltrol] 0.25 mcg PO MOTUWETHFR 04/12/23 04/12/23 History carvediloL [Coreg] 12.5 mg PO BID 04/12/23 04/12/23 History Allergies Allergy/AdvReac Type Severity Reaction Status Date / Time lisinopril Allergy Unknown Verified 04/12/23 18:26 TIDE LAUNDRY SOAP Allergy Severe Rash/Hives Uncoded 04/12/23 18:26 Physical Exam Vitals: Vital Signs Temp Pulse Resp BP Pulse Ox 04/15/23 08:35 96 04/15/23 07:00 82 13 141/61 96 04/15/23 06:00 66 12 134/52 95 04/15/23 05:00 64 13 150/67 95 04/15/23 04:00 98.7 F 58 L 12 134/53 96 04/15/23 03:00 57 L 12 134/52 96 04/15/23 02:00 60 14 119/63 96 04/15/23 01:00 53 L 16 130/56 95 04/15/23 00:19 68 11 L 128/58 98 04/15/23 00:00 97.7 F 60 13 135/55 96 04/14/23 23:00 61 17 152/66 96 04/14/23 22:00 57 L 12 130/65 95 04/14/23 21:00 63 20 132/58 96 04/14/23 20:00 97.7 F 64 16 135/60 97 04/14/23 19:00 67 17 117/60 96 04/14/23 18:00 65 14 144/66 96 04/14/23 17:00 67 22 142/71 96 04/14/23 16:15 73 22 159/68 96 04/14/23 16:00 98.6 F 71 13 142/76 97 04/14/23 15:45 73 7 L 155/68 96 04/14/23 15:30 63 10 L 166/72 95 04/14/23 15:15 68 11 L 148/71 96 04/14/23 15:00 68 14 159/73 97 04/14/23 14:45 76 14 158/76 97 04/14/23 14:30 71 14 176/70 98 04/14/23 14:15 75 19 176/70 97 04/14/23 14:00 66 20 160/66 98 04/14/23 13:45 73 20 166/103 97 04/14/23 13:30 70 19 178/83 97 04/14/23 13:15 65 18 171/85 97 04/14/23 13:00 69 17 150/90 97 04/14/23 12:45 70 21 150/90 97 04/14/23 12:30 70 16 145/72 98 04/14/23 12:15 70 18 164/73 98 04/14/23 12:00 98.2 F 65 15 157/75 97 04/14/23 11:45 68 17 144/75 97 04/14/23 11:30 70 17 141/65 97 04/14/23 11:24 98.0 F 04/14/23 11:15 97 Intake and Output 04/14/23 04/15/23 04/15/23 22:59 06:59 14:59 Intake Total 200 Output Total 400 300 0 Balance -200 -300 0 Intake: Intake, IV Titration 0 Amount Sodium Chloride 0.9% 250 0 ml @ 83 mls/hr IV .Q3H1M ONE with Pamidronate 60 mg Rx#:[id number] Oral 200 Output: Urine 400 300 0 Other: Voiding Method Urinal Urinal Weight 128.6 kg GENERAL: The patient is a morbid obese gentleman who sitting in a recliner chair and not in acute distress. Patient is currently on room air oxygen Head exam was generally normal. There was no scleral icterus or corneal arcus. Mucous membranes were moist. Neck was supple and without jugular venous distension, thyromegaly, or carotid bruits. Carotids were easily palpable bilaterally. There was no adenopathy. Lungs were clear to auscultation and percussion, and with normal diaphragmatic excursion. No wheezes or rales were noted. Cardiac exam revealed the PMI to be normally situated and sized. The rhythm was regular and no extrasystoles were noted during several minutes of auscultation. The first and second heart sounds were normal and physiologic splitting of the second heart sound was noted. There were no murmurs, rubs, clicks, or gallops. Abdominal exam revealed normal bowel sounds. The abdomen was soft, non-tender, and without masses, organomegaly, or appreciable enlargement of the abdominal aorta. Examination of the extremities revealed easily palpable radial, femoral and pedal pulses. There was no cyanosis, clubbing or edema. NEUROLOGICAL: Higher mental function: The patient is awake, alert, oriented to self, place and time. Patient is following commands. No aphasia and no neglect. Cranial nerves: The pupils are round, equal and reactive to light and accommodation. Visual espinal are full to confrontation throughout. Extraocular movement is intact no nystagmus is noted. Facial sensation is normal to touch throughout. The facial strength is normal throughout. Hearing is mildly decreased bilaterally to hand rub. Tongue is midline and moved [id number] without any difficulty. No dysarthria is noted. Shoulder shrug is normal bilaterally. Motor: Gait is slow and seems antalgic (per patient that is baseline). The strength is 5 over 5 throughout. Normal tone and bulk. Cerebellum: Normal finger to nose bilaterally. Sensation: Sensation is normal to touch throughout. Reflexes (right/left): 2+ throughout except ankles are 1+ Plantars are mute bilaterally. Results - Laboratory Findings CBC and BMP: 04/14/23 13:00 04/15/23 04:22 PT/INR, D-dimer PT 10.0 sec (9.0-12.0) 04/12/23 19:21 INR 0.9 (<1.2) 04/12/23 19:21 Abnormal lab findings: Abnormal Labs 04/12/23 04/12/23 04/12/23 19:21 19:21 19:21 RBC 3.71 L Hgb 12.1 L Hct 37.9 L MCV 102.2 H Plt Count 148 L APTT 20.9 L Sodium 136 L Carbon Dioxide BUN 46 H Creatinine 1.96 H Glucose 442 H POC Glucose (mg/dL) Calcium 10.7 H Albumin Triglycerides HDL Cholesterol PTH Intact 04/12/23 04/13/23 04/13/23 20:47 00:02 07:35 RBC Hgb Hct MCV Plt Count APTT Sodium Carbon Dioxide BUN Creatinine Glucose POC Glucose (mg/dL) 447 H 424 H 376 H Calcium Albumin Triglycerides HDL Cholesterol PTH Intact 04/13/23 04/13/23 04/13/23 10:10 10:10 11:58 RBC Hgb Hct MCV Plt Count APTT Sodium 136 L Carbon Dioxide 20 L BUN 45 H Creatinine 1.72 H Glucose 411 H POC Glucose (mg/dL) 309 H Calcium 10.5 H Albumin Triglycerides 200.00 H HDL Cholesterol 28.60 L PTH Intact 04/13/23 04/14/23 04/14/23 17:04 01:48 06:16 RBC Hgb Hct MCV Plt Count APTT Sodium 136 L Carbon Dioxide 21 L BUN 47 H Creatinine 2.07 H Glucose 178 H POC Glucose (mg/dL) 213 H 155 H Calcium 10.8 H Albumin Triglycerides HDL Cholesterol PTH Intact 04/14/23 04/14/23 04/14/23 07:31 11:29 11:43 RBC Hgb Hct MCV Plt Count APTT Sodium Carbon Dioxide BUN Creatinine Glucose POC Glucose (mg/dL) 205 H 242 H Calcium Albumin Triglycerides HDL Cholesterol PTH Intact 79.4 H 04/14/23 04/14/23 04/15/23 13:00 16:45 04:22 RBC 3.37 L Hgb 11.2 L Hct 34.2 L MCV 101.8 H Plt Count 133 L APTT Sodium 136 L Carbon Dioxide BUN 52 H Creatinine 2.26 H Glucose 145 H POC Glucose (mg/dL) 204 H Calcium 10.4 H Albumin 2.8 L Triglycerides HDL Cholesterol PTH Intact Assessment and Plan Plan: Hemorrhagic CVA, involving the left basal ganglia, could be hypertensive in nature. This was confirmed by MRI of the brain. MRA is negative. Patient presented to us with difficulties in speech and fatigue and balance and his neurologic functions are stable and somewhat improved since yesterday. BP is under better control for now. This is considered to be related to poorly controlled blood pressure. 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 Hyperuricemia/gout maintained on colchicine. Plan Continue neuro checks Avoid significant elevation the blood pressure. BP is under adequate control for now. We'll try to maintain a systolic blood pressure with green 140 and 160. He is currently taken labetalol 10 mg IV on an as-needed basis and is also on Coreg 12.5 mg twice a day and hydralazine 25 mg every 6 hours scheduled. He is also on diuretics with Bumex. Levemir insulin for blood sugar control and the patient is currently on 22 units plus NovoLog 15 units with meals and a sliding scale coverage Continue statin with Lipitor 10 mg by mouth daily Allow the patient uses home CPAP unit Resume the rest of the home medications Continue neuro checks We'll continue to follow
--- NOTE | 2023-04-15 10:16 | P.PN ---
Subjective Patient is seen in follow-up for chronic kidney disease. Renal function stable. Calcium level trending down. Calcitriol discontinued 04/13/2023. Denies chest pain or shortness of breath. Admits to good urine output. Hemodynamically stable. Transferred to the ICU yesterday due to hemorrhagic stroke. Patient is awake and alert. No changes in mental status. Vital signs are stable. General: No acute distress. HEENT: Head exam is unremarkable. LUNGS: No audible rhonchi or wheezes. HEART: Rate and Rhythm are regular. ABDOMEN: Nontender, obese. EXTREMITITES: Trace edema. Good strength in all 4 extremities. Objective - Vital Signs Vital signs: Vital Signs Temp 98.7 F 04/15/23 04:00 Pulse 82 04/15/23 07:00 Resp 13 04/15/23 07:00 BP 141/61 04/15/23 07:00 Pulse Ox 96 04/15/23 08:35 FiO2 Intake & Output 04/14/23 04/15/23 04/15/23 18:59 06:59 18:59 Intake Total 549 0 Output Total 600 300 0 Balance -51 -300 0 Weight 128 kg 128.6 kg Intake: Intake, IV Titration 249 Amount Sodium Chloride 0.9% 250 249 ml @ 83 mls/hr IV .Q3H1M ONE with Pamidronate 60 mg Rx#:[id number] Oral 300 0 Output: Urine 600 300 0 Other: Voiding Method Urinal Urinal - Labs CBC & Chem 7: 04/14/23 13:00 04/15/23 04:22 Labs: Abnormal Lab Results - Last 24 Hours (Table) 04/14/23 04/14/23 04/14/23 Range/Units 11:29 11:43 13:00 RBC 3.37 L (4.30-5.90) m/uL Hgb 11.2 L (13.0-17.5) gm/dL Hct 34.2 L (39.0-53.0) % MCV 101.8 H (80.0-100.0) fL Plt Count 133 L (150-450) k/uL Sodium (137-145) mmol/L BUN (9-20) mg/dL Creatinine (0.66-1.25) mg/dL Glucose (74-99) mg/dL POC Glucose (mg/dL) 242 H (70-110) mg/dL Calcium (8.4-10.2) mg/dL Albumin (3.5-5.0) g/dL PTH Intact 79.4 H (14.0-72.0) pg/mL 04/14/23 04/15/23 Range/Units 16:45 04:22 RBC (4.30-5.90) m/uL Hgb (13.0-17.5) gm/dL Hct (39.0-53.0) % MCV (80.0-100.0) fL Plt Count (150-450) k/uL Sodium 136 L (137-145) mmol/L BUN 52 H (9-20) mg/dL Creatinine 2.26 H (0.66-1.25) mg/dL Glucose 145 H (74-99) mg/dL POC Glucose (mg/dL) 204 H (70-110) mg/dL Calcium 10.4 H (8.4-10.2) mg/dL Albumin 2.8 L (3.5-5.0) g/dL PTH Intact (14.0-72.0) pg/mL Assessment and Plan Plan: Assessment: 1. Chronic kidney disease stage IV with recent creatinine in the range of 2.7- 2.9. Etiology is diabetic kidney disease and cardiorenal syndrome. Creatinine fairly stable at 2.26 today. Patient had vein mapping done outpatient. UA from November 2022 showed no proteinuria or RBCs. 2. Diabetes mellitus. Blood sugars elevated. 3. Generalized weakness and difficulty with speech on admission. MRI showed hemorrhagic stroke involving the basal ganglia. Neurology following. Aspirin discontinued. 4. Hypertension with chronic kidney disease. Controlled. 5. Chronic kidney disease mineral bone disease. 6. Hypercalcemia. Calcitriol discontinued 04/13/2023. TSH normal. PTH 79.4. Vitamin D level 35.6. 7. History of CML. Oncology consulted. Plan: Preserved ejection fraction noted on echocardiogram. Maintain Bumex at current dose. Encourage oral intake. Avoid nephrotoxins. Continue to monitor renal function and urine output. Follow-up pending workup for hypercalcemia. Pamidronate 60 mg IV once given 04/14/2023. Continue with neuro checks and close monitoring of blood pressure. Current systolic blood pressure 126
[2023-04-15 10:26] LABS: Albumin 3.9 d/dL (3.8-4.9); Protein, Total 6.8 d/dL (6.2-8.2)
--- NOTE | 2023-04-15 10:33 | P.CONS ---
History of Present Illness - Reason for Consult Consult date: 04/14/23 hx CML Requesting physician: Dwayne Castellano - Chief Complaint altered mental status - History of Present Illness Patient is a 72-year-old male with a significant history of CML. He is a patient of Dr. Kidd. Bone marrow biopsy revealed CML in 09/2019. He subsequentl y started Gleevec and has had stable disease with negative BCR/ABL. He continues on Gleevec and observation. Patient presented to the ER for altered mental status and neurological deficits. Patient reports 2 days ago he was more irritable with family and was walking "weirdly". He was also experiecning left-sided weakness and family states he was having slurred speech and was forgetful, at which time he presented the ER for further evaluation. Upon admission CT brain revealed moderate burden of chronic small vessel ischemic disease, no acute intracranial abnormality seen. MRI brain obtained revealing left basal ganglia hemorrhagic CVA. Subsequently patient was transferred to ICU for closer neurological monitoring. Neuro following. Review of Systems 10 point ROS is negative except as stated in the HPI Past Medical History Past Medical History: Asthma, Cancer, Diabetes Mellitus, GERD/Reflux, Hyperlipidemia, Hypertension, Osteoarthritis (OA), Pneumonia, Renal Disease, Sleep Apnea/CPAP/BIPAP Additional Past Medical History / Comment(s): [place] leukemia recently diagnosed and started oral chemo 10/10/19, IDDM type II, pt states he occasionally has hypoglycemia during middle of night, arthritis bilateral hands and occasionally in bilateral knees, gout R foot, WILLAM with Cpap use. ckd. History of Any Multi-Drug Resistant Organisms: None Reported Past Surgical History: Cholecystectomy, Hernia Repair Additional Past Surgical History / Comment(s): 09/2019 bone marrow biopsy, incisional hernia, colonoscopy with benign polyps. Right cataract removal with IOL implant Past Anesthesia/Blood Transfusion Reactions: No Reported Reaction Past Psychological History: No Psychological Hx Reported Additional Psychological History / Comment(s): Pt resides with his spouse. He is independent. He has a Cpap machine. Smoking Status: Never smoker Past Alcohol Use History: None Reported Additional Past Alcohol Use History / Comment(s): The patient is a lifelong n onsmoker, rare alcohol use. Past Drug Use History: None Reported - Past Family History Father Family Medical History: Diabetes Mellitus Additional Family Medical History / Comment(s): Father is 97 yrs old. Mother Family Medical History: Dementia Additional Family Medical History / Comment(s): Mother of dementia at the age of 85yrs. Medications and Allergies Home Medications Medication Instructions Recorded Confirmed Type Bumetanide [BUMEX] 2 mg PO DAILY 09/21/19 04/12/23 History INSULIN ASPART (NovoLOG) [NovoLOG 15 unit SQ AC-TID 12/02/20 04/12/23 History (formulary)] Insulin Glargine [Lantus Vial] 22 unit SQ HS 12/02/20 04/12/23 History Bumetanide [Bumex] 1 mg PO HS 04/12/23 04/12/23 History Colchicine [Colcrys] 0.6 mg PO DAILY PRN 04/12/23 04/12/23 History Famotidine 20 mg PO DAILY PRN 04/12/23 04/12/23 History Febuxostat [Uloric] 40 mg PO DAILY 04/12/23 04/12/23 History Ferrous Sulfate [Feosol] 325 mg PO TID 04/12/23 04/12/23 History Imatinib Mesylate [Gleevec] 400 mg PO HS@199904/12/23 04/12/23 History Levothyroxine Sodium [Synthroid] 50 mcg PO DAILY 04/12/23 04/12/23 History Magnesium Oxide 420mg 420 mg PO DAILY 04/12/23 04/12/23 History Simvastatin [Zocor] 10 mg PO HS 04/12/23 04/12/23 History Sucralfate [Carafate] 1 gm PO ACHS 04/12/23 04/12/23 History calcitrioL [Rocaltrol] 0.25 mcg PO MOTUWETHFR 04/12/23 04/12/23 History carvediloL [Coreg] 12.5 mg PO BID 04/12/23 04/12/23 History Allergies Allergy/AdvReac Type Severity Reaction Status Date / Time lisinopril Allergy Unknown Verified 04/12/23 18:26 TIDE LAUNDRY SOAP Allergy Severe Rash/Hives Uncoded 04/12/23 18:26 Physical Exam Vitals: Vital Signs Temp Pulse Pulse Resp BP BP Pulse Ox 04/14/23 17:00 67 22 142/71 96 04/14/23 16:15 73 22 159/68 96 04/14/23 16:00 98.6 F 71 13 142/76 97 04/14/23 15:45 73 7 L 155/68 96 04/14/23 15:30 63 10 L 166/72 95 04/14/23 15:15 68 11 L 148/71 96 04/14/23 15:00 68 14 159/73 97 04/14/23 14:45 76 14 158/76 97 04/14/23 14:30 71 14 176/70 98 04/14/23 14:15 75 19 176/70 97 04/14/23 14:00 66 20 160/66 98 04/14/23 13:45 73 20 166/103 97 04/14/23 13:30 70 19 178/83 97 04/14/23 13:15 65 18 171/85 97 04/14/23 13:00 69 17 150/90 97 04/14/23 12:45 70 21 150/90 97 04/14/23 12:30 70 16 145/72 98 04/14/23 12:15 70 18 164/73 98 04/14/23 12:00 98.2 F 65 15 157/75 97 04/14/23 11:45 68 17 144/75 97 04/14/23 11:30 70 17 141/65 97 04/14/23 11:24 98.0 F 04/14/23 11:15 97 04/14/23 07:25 97.4 F L 74 16 138/72 98 04/14/23 01:46 98.2 F 73 17 146/67 98 04/13/23 19:52 98.3 F 66 18 135/73 97 Intake and Output 04/14/23 04/14/23 04/14/23 06:59 14:59 22:59 Intake Total 349 100 Output Total 200 0 Balance 149 100 Intake: Intake, IV Titration 249 0 Amount Sodium Chloride 0.9% 250 249 0 ml @ 83 mls/hr IV .Q3H1M ONE with Pamidronate 60 mg Rx#:[id number] Oral 100 100 Output: Urine 200 0 Other: Voiding Method Urinal Urinal Weight 128 kg - Constitutional General appearance: no acute distress, obese - EENT Eyes: anicteric sclerae, EOMI ENT: hearing grossly normal - Respiratory Respiratory: bilateral: CTA - Cardiovascular Rhythm: regular Heart sounds: normal: S1, S2 Abnormal Heart Sounds: no systolic murmur, no diastolic murmur, no rub, no S3 G allop, no S4 Gallop, no click, no other - Integumentary Integumentary: no cyanotic, no rash - Neurologic LLE weakness noted, 4/5. Mild Dysarthria present - Musculoskeletal Musculoskeletal: left sided weakness - Psychiatric Psychiatric: A&O x's 3, intact judgment & insight Results CBC & Chem 7: 04/14/23 13:00 04/15/23 04:22 Labs: Abnormal Lab Results - Last 24 Hours (Table) 04/13/23 04/14/23 04/14/23 Range/Units 10:10 01:48 06:16 RBC (4.30-5.90) m/uL Hgb (13.0-17.5) gm/dL Hct (39.0-53.0) % MCV (80.0-100.0) fL Plt Count (150-450) k/uL Sodium 136 L (137-145) mmol/L Carbon Dioxide 21 L (22-30) mmol/L BUN 47 H (9-20) mg/dL Creatinine 2.07 H (0.66-1.25) mg/dL Glucose 178 H (74-99) mg/dL POC Glucose (mg/dL) 155 H (70-110) mg/dL Calcium 10.8 H (8.4-10.2) mg/dL Triglycerides 200.00 H (0.00-149.00) mg/dL HDL Cholesterol 28.60 L (40.00-60.00) mg/dL PTH Intact (14.0-72.0) pg/mL 04/14/23 04/14/23 04/14/23 Range/Units 07:31 11:29 11:43 RBC (4.30-5.90) m/uL Hgb (13.0-17.5) gm/dL Hct (39.0-53.0) % MCV (80.0-100.0) fL Plt Count (150-450) k/uL Sodium (137-145) mmol/L Carbon Dioxide (22-30) mmol/L BUN (9-20) mg/dL Creatinine (0.66-1.25) mg/dL Glucose (74-99) mg/dL POC Glucose (mg/dL) 205 H 242 H (70-110) mg/dL Calcium (8.4-10.2) mg/dL Triglycerides (0.00-149.00) mg/dL HDL Cholesterol (40.00-60.00) mg/dL PTH Intact 79.4 H (14.0-72.0) pg/mL 04/14/23 04/14/23 Range/Units 13:00 16:45 RBC 3.37 L (4.30-5.90) m/uL Hgb 11.2 L (13.0-17.5) gm/dL Hct 34.2 L (39.0-53.0) % MCV 101.8 H (80.0-100.0) fL Plt Count 133 L (150-450) k/uL Sodium (137-145) mmol/L Carbon Dioxide (22-30) mmol/L BUN (9-20) mg/dL Creatinine (0.66-1.25) mg/dL Glucose (74-99) mg/dL POC Glucose (mg/dL) 204 H (70-110) mg/dL Calcium (8.4-10.2) mg/dL Triglycerides (0.00-149.00) mg/dL HDL Cholesterol (40.00-60.00) mg/dL PTH Intact (14.0-72.0) pg/mL CT Scan - head: report reviewed MRI - head: report reviewed Assessment and Plan (1) Hemorrhagic cerebrovascular accident (CVA) Current Visit: Yes Status: Acute Priority: High Code(s): I61.9 - NONTRAUMATIC INTRACEREBRAL HEMORRHAGE, UNSPECIFIED SNOMED Code(s): 357170580 (2) Chronic myelocytic leukemia Current Visit: Yes Status: Acute Priority: Medium Code(s): C92.10 - CHRONIC MYELOID LEUK, BCR/ABL-POSITIVE, NOT ACHIEVE REMIS SNOMED Code(s): 74607210 Plan: CML: -He is a patient of Dr. Kidd. Bone marrow biopsy revealed CML in 09/2019. He subsequently started Gleevec and has had stable disease with negative BCR/ABL. He continues on Gleevec and observation. -Low suspicion for Gleveec as causative agent for CVA. Will hold Gleevec until patient acutely recovers and will reassess in clinic prior to reinitiating therapy CVA: -MRI brain obtained revealing left basal ganglia hemorrhagic CVA. Subsequently patient was transferred to ICU for close neurological monitoring. -Neuro following. Defer management to veneer supervisor and neurology attests: I performed a H&P and developed impression and plan of care for patient, discussed with dictator. I agree with dictated note, documented as a scribe
[2023-04-15 10:48] LABS: Angiotensin-1 Converting Enz. 23 U/L (8-52)
[2023-04-15 11:28] LABS: Glucose,Whole Blood 215 mg/dL (70-110)
--- NOTE | 2023-04-15 13:09 | P.PN ---
Subjective Progress Note Date: 04/15/23 The patient is seen at bedside and continues to be feeling well. Denies of any neurological issues. Denies of headache. Per nurse blood pressure is more controlled today. Objective - Vital Signs Vital signs: Vital Signs Temp 98.7 F 04/15/23 04:00 Pulse 72 04/15/23 12:00 Resp 13 04/15/23 12:00 BP 124/69 04/15/23 12:00 Pulse Ox 95 04/15/23 12:00 FiO2 Intake & Output 04/14/23 04/15/23 04/15/23 18:59 06:59 18:59 Intake Total 549 0 200 Output Total 600 300 0 Balance -51 -300 200 Weight 128 kg 128.6 kg Intake: Intake, IV Titration 249 Amount Sodium Chloride 0.9% 250 249 ml @ 83 mls/hr IV .Q3H1M ONE with Pamidronate 60 mg Rx#:[id number] Oral 300 0 200 Output: Urine 600 300 0 Other: Voiding Method Urinal Urinal Urinal - Exam GENERAL: The patient is a morbid obese gentleman who sitting in a recliner chair and not in acute distress. NEUROLOGICAL: Higher mental function: The patient is awake, alert, oriented to self, place and time. Patient is following commands. No aphasia and no neglect. Cranial nerves: The pupils are round, equal and reactive to light and accommodat ion. Visual espinal are full to confrontation throughout. Extraocular movement is intact no nystagmus is noted. Facial sensation is normal to touch throughout. The facial strength is normal throughout. Hearing is mildly decreased bilaterally to hand rub. Tongue is midline and moved [id number] without any difficulty. No dysarthria is noted. Shoulder shrug is normal bilaterally. Motor: Gait is slow and seems antalgic (per patient that is baseline). The strength is 5 over 5 throughout. Normal tone and bulk. Cerebellum: Normal finger to nose bilaterally. Sensation: Sensation is normal to touch throughout. Reflexes (right/left): 2+ throughout except ankles are 1+ Plantars are mute bilaterally. Some of the workup during his hospital visit consisted of: Recent blood pressure has been in the 130s to 140s systolic diastolic 60 to 70s. Calcium 7.7. Creatinine is 1.96 and the BUN 46. The sugar is in the 400s B12 is 607 Folate is 10.[address] of the head is reported as moderate burden of chronic small vessel ischemic disease. No acute intracranial abnormality seen. The body report is mentioned that the patient has benign bit basal ganglia calcification on the left. I personally reviewed images and I agree with the report. MRI of the brain on 04/13/2023 it's reported as left basal ganglia hemorrhage CVA. Scattered nonspecific white matter changes. Carotid Duplex was reported as no hemodynamically significant internal carotid artery stenosis on either side. 2-D echo was reported as normal left ventricular ejection fraction of 55-60%. Moderate increased left ventricular wall thickness. Repeat CT of the head is reported as age-related atrophy and chronic small vessel ischemic change without acute intracranial process. Left basal ganglia hyperdensity felt to reflect small hemorrhage is not significantly changed in the interval. MRA of the head is reported as no evidence of intracranial aneurysm or significant stenosis. No evidence for arteriovenous malformation. Stable left basal ganglia hemorrhage. - Labs CBC & Chem 7: 04/14/23 13:00 04/15/23 04:22 Labs: Abnormal Lab Results - Last 24 Hours (Table) 04/14/23 04/14/23 04/14/23 Range/Units 11:43 13:00 16:45 RBC 3.37 L (4.30-5.90) m/uL Hgb 11.2 L (13.0-17.5) gm/dL Hct 34.2 L (39.0-53.0) % MCV 101.8 H (80.0-100.0) fL Plt Count 133 L (150-450) k/uL Sodium (137-145) mmol/L BUN (9-20) mg/dL Creatinine (0.66-1.25) mg/dL Glucose (74-99) mg/dL POC Glucose (mg/dL) 204 H (70-110) mg/dL Calcium (8.4-10.2) mg/dL Albumin (3.5-5.0) g/dL PTH Intact 79.4 H (14.0-72.0) pg/mL 04/15/23 04/15/23 Range/Units 04:22 11:26 RBC (4.30-5.90) m/uL Hgb (13.0-17.5) gm/dL Hct (39.0-53.0) % MCV (80.0-100.0) fL Plt Count (150-450) k/uL Sodium 136 L (137-145) mmol/L BUN 52 H (9-20) mg/dL Creatinine 2.26 H (0.66-1.25) mg/dL Glucose 145 H (74-99) mg/dL POC Glucose (mg/dL) 215 H (70-110) mg/dL Calcium 10.4 H (8.4-10.2) mg/dL Albumin 2.8 L (3.5-5.0) g/dL PTH Intact (14.0-72.0) pg/mL Assessment and Plan Assessment: This is a 72-year-old gentleman with history of diabetes, hypertension, CML on chemotherapy who presented because of episode of generalized weakness, fatigue, off-balance and speech difficulty. Per he was having word finding difficulty. On presentation his sugar was in the 400s. Small Left basal ganglia bleed likely due to underlying hypertension--no current deficit on exam, headache. Repeat imaging is stable. No aneurysm on MRA. Episode of generalized weakness, word finding difficulty and off-balance: Possibly due to metabolic derangement. MRI Brain is negative for acute ischemia but it did reveal left basal ganglia bleed which would not give generalized weakness or speech difficulty---currently back to baseline. Hyperglycemia and sugar is in the 400s Diabetes mellitus Hypertension Hypercholesterolemia History of CML on chemotherapy Chronic kidney insufficiency Plan: I stopped his ASA and subq heparin on 04/14/2023 (was on home ASA 81mg daily) because of bleed. Canl resume tomorrow if continues to be stable and defer use of antiplatletes to primary team.. Patient refused to be transferred to a tertiary center for neurosurgical eval uation and would like to stay in our facility. He is currently in our ICU for closer monitoring and so far has been stable. Recommend SBP <140 and will defer the management to ICU and primary team. Every 1 hours neuro checks Cardiac monitoring PT and OT are consulted. Recommend euglycemia and we'll defer the management to the primary team We'll defer the rest of the medical management to primary team For DVT prophylaxis Uses SCD's for now. By tomorrow will restart subq heparin. Plan discussed with the patient and ICU nurse. Time with Patient: Less than 30
[2023-04-15 16:38] LABS: Glucose,Whole Blood 203 mg/dL (70-110)
[2023-04-15 18:38] LABS: Vitamin D, 1, 25-Dihydroxy 40 pg/mL (20 - 79)
[2023-04-15 20:10] LABS: Glucose,Whole Blood 262 mg/dL (70-110)
[2023-04-15] MEDS: ATORVASTATIN 10 MG TAB PO SCH (20:10)
[2023-04-15] MEDS: INSULIN DETEMIR (LEVEMIR) 100 UNIT/ML SYR SQ SCH (20:10)
[2023-04-15 20:44] LABS: Gamma Globulin 1.24 d/dL (0.70-1.50)
--- NOTE | 2023-04-16 03:46 | HP ---
HISTORY AND PHYSICAL CHIEF COMPLAINT: Generalized weakness, worse on the left than on the right, dizziness, ataxia, and expressive aphasia. HISTORY OF PRESENT ILLNESS: This is another admission for this 72-year-old obese white male. He had been having some difficulty at home for 5 to 6 days, apparently. He is having a little trouble with balance and at times some trouble with his left arm and left leg and some difficulty with speech. He is finally brought to the emergency room where he had an expressive aphasia and in the office, it was clear that he had issues of the right side of the brain. He is having trouble expressing himself and kept saying he thought that it was "his memory." He was slightly weak on the left. He had no headache. He has a history of extensive health problems including usually poorly controlled diabetes mellitus, hypertension, and he has CML. REVIEW OF SYSTEMS: He denied any visual changes, nausea, vomiting, chest pain, fever, chills, diarrhea, nausea, vomiting, renal failure, dysuria, frequency, urgency, incontinence, etc. PAST MEDICAL HISTORY, FAMILY HISTORY, PERSONAL HISTORY: Reveal that he is allergic to sulfa, TACOS inhibitors, and Percocet. MEDICATIONS: 1. Colchicine. 2. Lantus 24 units once a day. 3. NovoLog 15 units twice a day. 4. Carvedilol 12.5 three times a day. 5. Febuxostat 40 mg once a day. 6. Simvastatin 20 mg one half once a day. 7. Aspirin 81 mg. 8. Levothyroxine 50 mcg. 9. Pepcid 20 mcg. 10.Atenolol 25 mg once a day. 11.Mag oxide 400 mg once a day. 12.ProAir inhaler. 13.Vitamin D3. 14.He is also on Gleevec. PAST SURGICAL HISTORY: Surgically, he has had cholecystectomy and hernia repair. SOCIAL HISTORY: He does not smoke and he does not drink alcohol. PHYSICAL EXAMINATION: VITAL SIGNS: Blood pressure 154/78 with a pulse 78 and regular, respirations of 18, and he is afebrile. GENERAL: Appeared to be obese. He is slightly pale. HEENT: Head, ears, eyes, nose, mouth and throat appeared to be normal. NECK: Carotids are normal. CHEST: Clear. CARDIAC: Demonstrated what sounded like sinus rhythm. ABDOMEN: Soft and protuberant. EXTREMITIES: Demonstrated edema in the legs. NEUROLOGIC: He was having little bit of difficulty speaking and he was slightly weak on the left side. DIAGNOSES: He has been admitted to the hospital with diagnoses, 1. Right-sided TIA with expressive aphasia and left hemiparesis (mild). 2. History of hypertension. 3. Insulin-dependent diabetes mellitus. 4. CML. 5. Morbid obesity. PLAN: 1. Bedrest. 2. IV fluids. 3. Frequent neurologic evaluations. 4. Neurology consult. 5. Carotid and DROP WORKER studies. 6. Consult with Oncology. MMODL / IJN: [id number] /
--- NOTE | 2023-04-16 03:49 | PN ---
PROGRESS NOTE DATE OF SERVICE: 04/12/2023 CHIEF COMPLAINT: Right-sided CVA. HISTORY OF PRESENT ILLNESS: This gentleman is doing fairly well and his speech is actually a little bit better. He denies any headache. He has not had any increase in left-sided weakness. PHYSICAL EXAMINATION: HEENT: Head, ears, eyes, nose, mouth and throat are normal. CHEST: Clear. CARDIAC: Normal. NEUROLOGIC: His expressive aphasia is slightly better. VITAL SIGNS: His blood pressure is slightly high at 184/68. His BUN is 46 with creatinine 1.96 and a GFR of 33. White count is 8800 with hemoglobin 12.1, and platelets are 148. His blood sugar is still slightly high at 442. IMPRESSION: 1. Probable right-sided CVA. 2. Hypertension. 3. Diabetes. 4. CML. PLAN: 1. Wait for further studies as well as neurology consult. 2. Follow blood work. MMODL / IJN: [id number] /
--- NOTE | 2023-04-16 04:19 | PN ---
PROGRESS NOTE DATE OF SERVICE: 04/14/2023 CHIEF COMPLAINT: Hemorrhagic right CVA. HISTORY OF PRESENT ILLNESS: This gentleman is doing well. Fortunately, his speech is improving. He has no headaches and he has had no progressive neurologic signs or symptoms. PHYSICAL EXAMINATION: VITAL SIGNS: Blood pressure is improved. CHEST: Clear. CARDIAC: Normal. ABDOMEN: Soft, nontender. IMPRESSION: Hemorrhagic right CVA. PLAN: 1. Continue to increase activity. 2. ST, OT and PT. 3. Discharge planning. MMODL / IJN: [id number] /
[2023-04-16] MEDS: hydrALAZINE HCL 20 MG/ML 1 ML VIAL IVP SCH ×4 (04:25→15:45)
[2023-04-16 06:19] LABS: Glucose,Whole Blood 209 mg/dL (70-110)
[2023-04-16] MEDS: LEVOTHYROXINE 50 MCG TAB PO SCH (06:28)
[2023-04-16] MEDS: SUCRALFATE 1 GM TAB PO SCH ×3 (06:28→17:54)
[2023-04-16] MEDS: BUMETANIDE 1 MG TAB PO SCH (08:52)
[2023-04-16] MEDS: MAGNESIUM OXIDE 400 MG TAB PO SCH (08:52)
[2023-04-16] MEDS: FERROUS SULFATE 325 MG TAB PO SCH ×2 (08:52→16:23)
[2023-04-16] MEDS: allopurinoL 100 MG TAB PO SCH (08:52)
[2023-04-16] MEDS: carvediloL 12.5 MG TAB PO SCH ×2 (08:53→17:55)
[2023-04-16] MEDS: FAMOTIDINE 20 MG TAB PO SCH (08:53)
[2023-04-16] MEDS: INSULIN ASPART (NovoLOG) 100 UNIT/ML VIAL SQ SCH ×3 (08:53→17:55)
[2023-04-16 12:41] LABS: Glucose,Whole Blood 263 mg/dL (70-110)
--- NOTE | 2023-04-16 13:36 | P.PN ---
Subjective Progress Note Date: 04/16/23 According to the patient nurse of no acute events overnight or today. Patient is doing about the same. Patient was seen at bedside and he denies of any headache and he he feels he is doing much better. He denies of any focal weakness or numbness visual disturbance. Objective - Vital Signs Vital signs: Vital Signs Temp 97.5 F L 04/16/23 07:57 Pulse 57 L 04/16/23 07:57 Resp 16 04/16/23 07:57 BP 136/75 04/16/23 07:57 Pulse Ox 99 04/16/23 07:57 FiO2 Intake & Output 04/15/23 04/16/23 04/16/23 18:59 06:59 18:59 Intake Total 400 118 Output Total 500 Balance -100 118 Intake: Oral 400 118 Output: Urine 500 Other: Voiding Method Urinal Urinal - Exam GENERAL: The patient is a morbid obese gentleman who sitting in a recliner chair and not in acute distress. NEUROLOGICAL: Higher mental function: The patient is awake, alert, oriented to self, place and time. Patient is following commands. No aphasia and no neglect. Cranial nerves: The pupils are round, equal and reactive to light and accommodation. Visual espinal are full to confrontation throughout. Extraocular movement is intact no nystagmus is noted. Facial sensation is normal to touch throughout. The facial strength is normal throughout. Hearing is mildly decreased bilaterally to hand rub. Tongue is midline and moved [id number] without any difficulty. No dysarthria is noted. Shoulder shrug is normal bilaterally. Motor: Gait is slow and seems antalgic (per patient that is baseline). The strength is 5 over 5 throughout. Normal tone and bulk. Cerebellum: Normal finger to nose bilaterally. Sensation: Sensation is normal to touch throughout. Reflexes (right/left): 2+ throughout except ankles are 1+ Plantars are mute bilaterally. Some of the workup during his hospital visit consisted of: Recent blood pressure has been in the 130s to 140s systolic diastolic 60 to 70s. Calcium 7.7. Creatinine is 1.96 and the BUN 46. The sugar is in the 400s B12 is 607 Folate is 10.[address] of the head is reported as moderate burden of chronic small vessel ischemic disease. No acute intracranial abnormality seen. The body report is mentioned that the patient has benign bit basal ganglia calcification on the left. I pers onally reviewed images and I agree with the report. MRI of the brain on 04/13/2023 it's reported as left basal ganglia hemorrhage CVA. Scattered nonspecific white matter changes. Carotid Duplex was reported as no hemodynamically significant internal carotid artery stenosis on either side. 2-D echo was reported as normal left ventricular ejection fraction of 55-60%. Moderate increased left ventricular wall thickness. Repeat CT of the head is reported as age-related atrophy and chronic small ve ssel ischemic change without acute intracranial process. Left basal ganglia hyperdensity felt to reflect small hemorrhage is not significantly changed in the interval. MRA of the head is reported as no evidence of intracranial aneurysm or significant stenosis. No evidence for arteriovenous malformation. Stable left basal ganglia hemorrhage. - Labs CBC & Chem 7: 04/14/23 13:00 04/15/23 04:22 Labs: Abnormal Lab Results - Last 24 Hours (Table) 04/15/23 04/15/23 04/16/23 Range/Units 16:36 20:09 06:17 POC Glucose (mg/dL) 203 H 262 H 209 H (70-110) mg/dL 04/16/23 Range/Units 12:39 POC Glucose (mg/dL) 263 H (70-110) mg/dL Assessment and Plan Assessment: This is a 72-year-old gentleman with history of diabetes, hypertension, CML on chemotherapy who presented because of episode of generalized weakness, fatigue, off-balance and speech difficulty. Per he was having word finding difficulty. On presentation his sugar was in the 400s. Small Left basal ganglia bleed likely due to underlying hypertension--no current deficit on exam, headache. Repeat imaging is stable. No aneurysm on MRA. Episode of generalized weakness, word finding difficulty and off-balance: Possibly due to metabolic derangement. MRI Brain is negative for acute ischemia but it did reveal left basal ganglia bleed which would not give generalized weakness or speech difficulty---currently back to baseline. Hyperglycemia and sugar is in the 400s Diabetes mellitus Hypertension Hypercholesterolemia History of CML on chemotherapy Chronic kidney insufficiency Plan: I stopped his ASA and subq heparin on 04/14/2023 (was on home ASA 81mg daily) because of bleed. Pulmonary neurology perspective can resume antiplatelet if needed by the primary team. Patient refused to be transferred to a tertiary center for neurosurgical evaluation and would like to stay in our facility. He has been stable in our facility. Recommend SBP <140 and will defer the management to primary team. So far it has been controlled. Every 4 hours neuro checks Cardiac monitoring PT and OT are consulted. Patient was notified that he needs to have his blood pressure controlled at home. Recommend euglycemia and we'll defer the management to the primary team We'll defer the rest of the medical management to primary team For DVT prophylaxis: resumed subq heparin 5000U every 12 hours. Plan discussed with the patient and his nurse. Otherwise no additional work-up and will continue to monitor if he remains in the hospital. Time with Patient: Less than 30
--- NOTE | 2023-04-16 14:25 | P.PN ---
Subjective Progress Note Date: 04/16/23 72-year-old male patient male patient with a known history of CML, diabetes mellitus and hypertension and hyperlipidemia chronic kidney disease. The patient came into the emergency department because of difficulties in speech imbalance that started yesterday morning. He was feeling dizzy and in the [facility] patient was found to be lacking energy and he was having generalized weakness. He did not have any focal neurological deficit. A CAT scan of the brain was done and it showed chronic small vessel ischemic changes. No acute intracranial abnormalities. There was benign basal ganglia calcification on the left. Based on that, the patient was given an MRI of his brain and neurologic consultation was also involved. MRI of the brain showed a left basal ganglia hemorrhagic CVA and scattered nonspecific white matter disease. A subsequent CAT scan of the brain that was done showed age-related atrophy and left basal ganglia small hemorrhage that has not changed. MRI of the head was also done and it showed no acute intracranial vascular abnormalities. Left basal ganglia hemorrhage was essentially inactive and stable. Noted the patient was taken aspirin on outpatient basis. Currently is not receiving any form of anticoagulants or antiplatelet agents. His blood pressure is stable at 141/61 this morning. The highest blood pressure recorded was 178/83 yesterday. Overall, the patient's condition is improved. Based on the , the patient is having some difficulties and blood pressure control even an outpatient basis. He is undergoing repair Check sputum currently is on room air oxygen. Blood work was reviewed. He has chronic kidney disease and the patient's creatinine is stable for now. His GFR is around 30 consistent with chronic kidney disease, stage III. echoes at 9.8, hemoglobin is 11.2. Carotid Dopplers were also done that showed no evidence of any hemodynamically significant stenosis. The chest x-ray at the time of admission showed no acute process. On today's evaluation of 04/16/2023, the patient is neurologically stable. No new complaints and the patient was transferred out of the intensive care unit. Able to speak. Able to move all 4 extremities without limitation. Neurologist on the case. BP is under good control the patient is currently on room air oxygen. Objective - Vital Signs Vital signs: Vital Signs Temp 97.5 F L 04/16/23 07:57 Pulse 57 L 04/16/23 07:57 Resp 16 04/16/23 07:57 BP 136/75 04/16/23 07:57 Pulse Ox 99 04/16/23 07:57 FiO2 Intake & Output 04/15/23 04/16/23 04/16/23 18:59 06:59 18:59 Intake Total 400 118 Output Total 500 Balance -100 118 Intake: Oral 400 118 Output: Urine 500 Other: Voiding Method Urinal Urinal - Exam GENERAL: The patient is a morbid obese gentleman who sitting in a recliner chair and not in acute distress. Patient is currently on room air oxygen Head exam was generally normal. There was no scleral icterus or corneal arcus. Mucous membranes were moist. Neck was supple and without jugular venous distension, thyromegaly, or carotid bruits. Carotids were easily palpable bilaterally. There was no adenopathy. Lungs were clear to auscultation and percussion, and with normal diaphragmatic excursion. No wheezes or rales were noted. Cardiac exam revealed the PMI to be normally situated and sized. The rhythm was regular and no extrasystoles were noted during several minutes of auscultation. The first and second heart sounds were normal and physiologic splitting of the second heart sound was noted. There were no murmurs, rubs, clicks, or gallops. Abdominal exam revealed normal bowel sounds. The abdomen was soft, non-tender, and without masses, organomegaly, or appreciable enlargement of the abdominal a kavon. Examination of the extremities revealed easily palpable radial, femoral and pedal pulses. There was no cyanosis, clubbing or edema. NEUROLOGICAL: Higher mental function: The patient is awake, alert, oriented to self, place and time. Patient is following commands. No aphasia and no neglect. Cranial nerves: The pupils are round, equal and reactive to light and accommodation. Visual espinal are full to confrontation throughout. Extraocular movement is intact no nystagmus is noted. Facial sensation is normal to touch throughout. The facial strength is normal throughout. Hearing is mildly decreased bilaterally to hand rub. Tongue is midline and moved [id number] without any difficulty. No dysarthria is noted. Shoulder shrug is normal bilaterally. Motor: Gait is slow and seems antalgic (per patient that is baseline). The strength is 5 over 5 throughout. Normal tone and bulk. Cerebellum: Normal finger to nose bilaterally. Sensation: Sensation is normal to touch throughout. Reflexes (right/left): 2+ throughout except ankles are 1+ Plantars are mute bilaterally. 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 This was confirmed by MRI of the brain. MRA is negative. Patient presented to us with difficulties in speech and fatigue and balance and his neurologic functions are stable and somewhat improved since yesterday. BP is under better control for now. This is considered to be related to poorly controlled blood pressure. 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 Hyperuricemia/gout maintained on colchicine. Plan Patient was transferred out of the intensive care unit BP is stable Continue neuro checks Avoid significant elevation the blood pressure. BP is under adequate control for now. We'll try to maintain a systolic blood pressure with green 140 and 160. He is currently taken labetalol 10 mg IV on an as-needed basis and is also on Coreg 12.5 mg twice a day and hydralazine 25 mg every 6 hours scheduled. He is also on diuretics with Bumex. Levemir insulin for blood sugar control and the patient is currently on 22 units plus NovoLog 15 units with meals and a sliding scale coverage Continue statin with Lipitor 10 mg by mouth daily Allow the patient uses home CPAP unit Resume the rest of the home medications Continue neuro checks We'll sign off the case and will leave the rest of the management up to neurology and medicine.
--- NOTE | 2023-04-16 16:41 | P.PN ---
Subjective Progress Note Date: 04/16/23 Follow-up for acute kidney injury/chronic kidney disease. Objective - Vital Signs Vital signs: Vital Signs Temp 97.4 F L 04/16/23 14:54 Pulse 62 04/16/23 14:54 Resp 16 04/16/23 14:54 BP 128/57 04/16/23 14:54 Pulse Ox 98 04/16/23 14:54 FiO2 Intake & Output 04/15/23 04/16/23 04/16/23 18:59 06:59 18:59 Intake Total 400 472 Output Total 500 Balance -100 472 Intake: Oral 400 472 Output: Urine 500 Other: Voiding Method Urinal Urinal - Exam No acute distress S1-S2 heard Decreased breath sounds Abdomen soft Trace edema - Labs CBC & Chem 7: 04/14/23 13:00 04/15/23 04:22 Labs: Abnormal Lab Results - Last 24 Hours (Table) 04/15/23 04/15/23 04/16/23 Range/Units 16:36 20:09 06:17 POC Glucose (mg/dL) 203 H 262 H 209 H (70-110) mg/dL 04/16/23 Range/Units 12:39 POC Glucose (mg/dL) 263 H (70-110) mg/dL Assessment and Plan Assessment: #1 chronic kidney disease stage IV secondary to diabetic kidney disease. -Baseline creatinine around 2.0 MG per DL. #2 diabetes mellitus #3 generalized weakness #4 hypertension with chronic kidney disease #5 CML #6 edema Plan: #1 renal function around baseline. #2 continue with Bumex #3 avoid nephrotoxic agents and hypotensive episodes
[2023-04-16 17:17] LABS: Glucose,Whole Blood 287 mg/dL (70-110)
[2023-04-16] MEDS ORDERED: HEPARIN SODIUM,PORCINE/PF 5,000 UNIT/0.5 ML SYRINGE SQ SCH (21:00)
[2023-04-16 21:12] VITALS: BP 123/64; PULSE 64; RESP 15; TEMP 97.3
--- NOTE | 2023-04-18 17:48 | CDI ---
Documentation Clarification Form Date: 04/18/2023 05:34:06 PM From: Sonya Love Phone: Admit Date: 04/12/2023 10:52:00 PM Patient Name: Maulik Ascencio Visit Number: [id number] Discharge Date: 04/16/2023 09:00:00 PM ATTENTION: The Clinical Documentation Specialists (CDI) and [facility] Coding Staff appreciate your assistance in clarifying documentation. Please respond to the clarification below the line at the bottom and electronically sign. The CDI & [facility] Coding staff will review the response and follow-up if needed. Please note: Queries are made part of the Legal Health Record. If you have any questions, please contact the author of this message via ITS. Dr. Dwayne Castellano Chronic stage III -IV kidney disease is documented Progress Note Date04/16/23. Additional clarification regarding the stage of CKD is requested. History/Risk Factors: 72yo M, #[id number] w CKD, HTN, CML, edema, hemorrhagic CVA, gout, generalized weakness, mild intermittentbronchial asthma, GERD, WILLAM, hypothyroidism, hypercalcemia Baseline 1.96; recent creatinine in the range of 2.7 Clinical Indicators: GFR: 38 Non- GFR (CKD): 33 Creatinine (mg/dL): 1.96 Blood Urea Nitrogen (mg/dL): 46 Creatinine fairly stable at 2.26 today 04/15 Treatment: Continue to monitor renal function and urine output. Consults: Nephrology Hep-Lock IV fluids. Blood sugar control. Add hydralazine 25 mg 3 times daily. Hold for systolic bloodpressureless than 120. Encourage oral intake. Avoid nephrotoxins. Continue to monitor renal function and urine output. Please clarify the stage of the CKD, if known: [ ] CKD Stage 3b (GFR 30-44) [ ] CKD Stage 4 (GFR 15-29) [ ] Other, please specify [ ] Unable to determine (Template Last revised: November 2020) MTDD
--- NOTE | 2023-04-19 00:33 | PN ---
PROGRESS NOTE DATE OF SERVICE: 04/13/2023 CHIEF COMPLAINT: left-sided weakness. HISTORY OF PRESENT ILLNESS: This gentleman probably has had a cerebrovascular event. He has trouble forming words and he feels like he cannot rely on his "memory." Left-sided weakness has improved. PHYSICAL EXAMINATION: VITAL SIGNS: Normal. CHEST: Clear. CARDIAC: Normal. ABDOMEN: Soft, nontender and protuberant. IMPRESSION: Right-sided neurologic event with expressive aphasia and left hemiparesis. PLAN: Continue workup. He will be seen by Neurology. MMODL / IJN: [id number] /
--- NOTE | 2023-04-19 01:30 | PN ---
PROGRESS NOTE DATE OF SERVICE: 04/15/2023 CHIEF COMPLAINT: CVA. HISTORY OF PRESENT ILLNESS: This gentleman is doing well. Speech is improved slightly. PHYSICAL EXAMINATION: CHEST: Clear. CARDIAC: Normal. He does have a faint 2/3 systolic murmur. ABDOMEN: Protuberant, soft and nontender. IMPRESSION: Right-sided cerebrovascular accident with expressive aphasia and slight left hemiparesis. PLAN: Continue to increase activity and wait for results of further studies. It does look as though he has had a small hemorrhagic infarct on the right. MMODL / IJN: [id number] /
--- NOTE | 2023-04-19 02:00 | DS ---
DISCHARGE SUMMARY CHIEF COMPLAINT: Difficulty speaking. HISTORY OF PRESENT ILLNESS AND PHYSICAL EXAMINATION: Details of this man's history and physical can be found in the initial workup. LABORATORY STUDIES: While he was in the hospital, he had laboratory studies, details of which can be found in the laboratory section of his chart. COURSE IN THE HOSPITAL: After admission, he was placed on bedrest, started intravenous fluids, and was seen followed by Neurology and Cardiology as well as Oncology. He was found to have a small right-sided hemorrhagic CVA. While in the hospital, he received speech, occupational and physical therapies, and improved slightly. He was doing well, it was felt that he could go home on the , and he will go home on his usual activity, diet, medication with no significant changes. He will not be anticoagulated. He will be seen in the office in several days. FINAL DIAGNOSES: 1. Right hemorrhagic cerebrovascular accident with expressive aphasia, and mild left- sided weakness. 2. History of insulin-dependent diabetes mellitus, poorly controlled. 3. History of hypertension. 4. Obesity. 5. Chronic myelogenous leukemia. OPERATIONS: None. CONSULTATIONS: Neurology, Cardiology and Pulmonology. MMODL / IJN: [id number] /
--- NOTE | 2023-04-21 15:59 | MISC ---
MISCELLANOUS REPORT Stage IIIB. MMODL / IJN: [id number] /
== END 2023-04-16 21:00 | disposition home or self-care (01) | DRG 65 ==
LOC: EC 15:41 → OBSVTOIN 22:52 → INTOOBSV 22:52 → 5NMEDONC 22:52 → 2SICU 04-14 11:17 → 6NMEDSUR 04-15 21:14
PROVIDERS: ADMIT Family Medicine; ATTEND Family Medicine
DX: I61.0 Nontraumatic intracerebral hemorrhage in hemisphere, subcortical (principal); C92.10 Chronic myeloid leukemia, BCR/ABL-positive, not having achieved remission; N17.9 Acute kidney failure, unspecified; R47.01 Aphasia; G23.8 Other specified degenerative diseases of basal ganglia; G81.94 Hemiplegia, unspecified affecting left nondominant side; I13.10 Hypertensive heart and chronic kidney disease without heart failure, with stage 1 through stage 4 chronic kidney disease, or unspecified chronic kidney disease; E11.22 Type 2 diabetes mellitus with diabetic chronic kidney disease; E11.65 Type 2 diabetes mellitus with hyperglycemia; E66.01 Morbid (severe) obesity due to excess calories; E03.9 Hypothyroidism, unspecified; J45.20 Mild intermittent asthma, uncomplicated; E78.00 Pure hypercholesterolemia, unspecified; G47.33 Obstructive sleep apnea (adult) (pediatric); R27.0 Ataxia, unspecified; N18.32 Chronic kidney disease, stage 3b; R47.81 Slurred speech; R60.9 Edema, unspecified; R90.82 White matter disease, unspecified; E83.52 Hypercalcemia; M10.9 Gout, unspecified; K21.9 Gastro-esophageal reflux disease without esophagitis; M89.8X9 Other specified disorders of bone, unspecified site; Z79.4 Long term (current) use of insulin; Z68.39 Body mass index [BMI] 39.0-39.9, adult; Z79.890 Hormone replacement therapy; Z88.8 Allergy status to other drugs, medicaments and biological substances; Z91.048 Other nonmedicinal substance allergy status; Z79.899 Other long term (current) drug therapy; Z92.21 Personal history of antineoplastic chemotherapy
CPT/HCPCS: 36415; 70450; 70544; 70551; 71046; 80048; 80053; 80061; 82040; 82140; 82164; 82306; 82607; 82652; 82746; 83605; 83735; 83883; 83970; 84165; 84443; 84484; 85025; 85610; 85730; 86334; 86335; 93005; 93306; 93880; 99285

== ENCOUNTER 2023-04-24 08:43 | Emergency (ER) | payer MEDICARE ==
--- NOTE | 2023-04-24 09:48 | ED ---
General Adult HPI - General Chief complaint: Nausea/Vomiting/Diarrhea Stated complaint: Diarrhea Time Seen by Provider: 04/24/23 08:54 Source: EMS Mode of arrival: EMS - History of Present Illness Initial comments: 72-year-old male presents emergency department reporting diarrhea. is at bedside ready to history. States the patient has had diarrhea since . he had only a few episodes however as the days have gone on, the diarrhea has increased. He was recently on antibiotics. Denies a history of C. diff. No fevers. Admits nausea without vomiting. Has not taken any medications to stop the diarrhea. He does have stage III chronic kidney disease. No other alleviating, precipitating or modifying factors - Related Data Home Medications Medication Instructions Recorded Confirmed Bumetanide [BUMEX] 2 mg PO DAILY 09/21/19 04/19/23 INSULIN ASPART (NovoLOG) [NovoLOG 15 unit SQ AC-TID 12/02/20 04/19/23 (formulary)] Insulin Glargine [Lantus Vial] 22 unit SQ HS 12/02/20 04/19/23 Bumetanide [BUMEX] 1 mg PO HS 04/12/23 04/19/23 Colchicine [Colcrys] 0.6 mg PO DAILY PRN 04/12/23 04/19/23 Famotidine 20 mg PO DAILY PRN 04/12/23 04/19/23 Febuxostat [Uloric] 40 mg PO DAILY 04/12/23 04/19/23 Ferrous Sulfate [Iron (65 MG 325 mg PO TID 04/12/23 04/19/23 Elemental)] Imatinib Mesylate [Gleevec] 400 mg PO HS@199904/12/23 04/19/23 Levothyroxine Sodium [Synthroid] 50 mcg PO DAILY 04/12/23 04/19/23 Magnesium Oxide 420mg 420 mg PO DAILY 04/12/23 04/19/23 Simvastatin [Zocor] 10 mg PO HS 04/12/23 04/19/23 Sucralfate [Carafate] 1 gm PO [facility] 04/12/23 04/19/23 calcitrioL [Rocaltrol] 0.25 mcg PO MOTUWETHFR 04/12/23 04/19/23 carvediloL [Coreg] 12.5 mg PO BID 04/12/23 04/19/23 Allergies Allergy/AdvReac Type Severity Reaction Status Date / Time lisinopril Allergy Unknown Verified 04/24/23 08:47 TIDE LAUNDRY SOAP Allergy Severe Rash/Hives Uncoded 04/24/23 08:47 Review of Systems ROS Statement: Those systems with pertinent positive or pertinent negative responses have been documented in the HPI. ROS Other: All systems not noted in ROS Statement are negative. Past Medical History Past Medical History: Asthma, Cancer, Diabetes Mellitus, GERD/Reflux, Hyperlipidemia, Hypertension, Osteoarthritis (OA), Pneumonia, Renal Disease, Sleep Apnea/CPAP/BIPAP Additional Past Medical History / Comment(s): [place] leukemia recently diagnosed and started oral chemo 10/10/19, IDDM type II, pt states he occasionally has hypoglycemia during middle of night, arthritis bilateral hands and occasionally in bilateral knees, gout R foot, WILLAM with Cpap use. ckd. History of Any Multi-Drug Resistant Organisms: None Reported Past Surgical History: Cholecystectomy, Hernia Repair Additional Past Surgical History / Comment(s): 09/2019 bone marrow biopsy, incisional hernia, colonoscopy with benign polyps. Right cataract removal with IOL implant Past Anesthesia/Blood Transfusion Reactions: No Reported Reaction Past Psychological History: No Psychological Hx Reported Smoking Status: Never smoker Past Alcohol Use History: None Reported Past Drug Use History: None Reported - Past Family History Father Family Medical History: Diabetes Mellitus Additional Family Medical History / Comment(s): Father is 97 yrs old. Mother Family Medical History: Dementia Additional Family Medical History / Comment(s): Mother of dementia at the age of 85yrs. General Exam General appearance: alert, in no apparent distress Head exam: Present: atraumatic, normocephalic, normal inspection Eye exam: Present: normal appearance, PERRL, EOMI. Absent: scleral icterus, conjunctival injection, periorbital swelling ENT exam: Present: normal exam, mucous membranes moist Neck exam: Present: normal inspection. Absent: tenderness, meningismus, lymphadenopathy Respiratory exam: Present: normal lung sounds bilaterally. Absent: respiratory distress, wheezes, rales, rhonchi, stridor Cardiovascular Exam: Present: regular rate, normal rhythm, normal heart sounds. Absent: systolic murmur, diastolic murmur, rubs, gallop, clicks GI/Abdominal exam: Present: soft, normal bowel sounds. Absent: distended, tenderness, guarding, rebound, rigid Extremities exam: Present: normal inspection, full ROM, normal capillary refill. Absent: tenderness, pedal edema, joint swelling, calf tenderness Back exam: Present: normal inspection Neurological exam: Present: alert, oriented X3, CN II-XII intact Psychiatric exam: Present: normal affect, normal mood Skin exam: Present: warm, dry, intact, normal color. Absent: rash Course Vital Signs 04/24/23 04/24/23 04/24/23 08:44 10:00 12:47 Temperature 97.6 F Pulse Rate 63 50 L 51 L Respiratory 16 16 18 Rate Blood Pressure 147/78 127/57 157/66 O2 Sat by Pulse 97 98 99 Oximetry 04/24/23 14:53 Temperature 98.6 F Pulse Rate 51 L Respiratory 19 Rate Blood Pressure 172/75 O2 Sat by Pulse 95 Oximetry Medical Decision Making - Medical Decision Making Was pt. sent in by a medical professional or institution (, PA, DONOR RELATIONS OFFICER, urgent care, hospital, or residential...) When possible be specific @ -No Did you speak to anyone other than the patient for history (EMS, parent, family, police, friend...)? What history was obtained from this source @ - Did you review nursing and triage notes (agree or disagree)? Why? @ -I reviewed and agree with nursing and triage notes Were old charts reviewed (outside hosp., previous admission, EMS record, old EKG, old radiological studies, urgent care reports/EKG's, residential records)? Report findings @ -No old charts were reviewed Differential Diagnosis (chest pain, altered mental status, abdominal pain women, abdominal pain men, vaginal bleeding, weakness, fever, dyspnea, syncope, headache, dizziness, GI bleed, back pain, seizure, CVA, palpatations, mental health, musculoskeletal)? @ -c.diff, gastroenteritis, diverticulitis, ischemic bowel, gi bleed EKG interpreted by me (3pts min.). @ -As above X-rays interpreted by me (1pt min.). @ -None done CT interpreted by me (1pt min.). @ -None done U/S interpreted by me (1pt. min.). @ -None done What testing was considered but not performed or refused? (CT, X-rays, U/S, labs)? Why? @ -c.diff testing - patient cant have a bowel movement What meds were considered but not given or refused? Why? @ -None Did you discuss the management of the patient with other professionals (professionals i.e. , PA, DONOR RELATIONS OFFICER, lab, RT, psych nurse, adoption social worker, brush cutter, teacher, compliance officer, rifle case repairer)? Give summary @ -No Was smoking cessation discussed for >3mins.? @ -No Was critical care preformed (if so, how long)? @ -No Were there social determinants of health that impacted care today? How? (Homelessness, low income, unemployed, alcoholism, drug addiction, transportation, low edu. Level, literacy, decrease access to med. care, prison, rehab)? @ -No Was there de-escalation of care discussed even if they declined (Discuss DNR or withdrawal of care, Hospice)? DNR status @ -No What co-morbidities impacted this encounter? (DM, HTN, Smoking, COPD, CAD, Canc er, CVA, ARF, Chemo, Hep., AIDS, mental health diagnosis, sleep apnea, morbid obesity)? @ -None Was patient admitted / discharged? Hospital course, mention meds given and route, prescriptions, significant lab abnormalities, going to OR and other pertinent info. @ -Upon arrival patient was placed into room 19. Thorough history and physical exam is performed. IV access was established laboratory studies are conducted. Patient is watched in the emergency department for approximately 6 hours. He does not have any diarrhea while here. Informed him of the importance of collecting a stool sample however he cannot have a bowel movement. He will be given the collection material to take home. I did give him an outpatient prescription. He will bring sample to the outpatient lab and results will be sent to his primary care doctor. Do not recommend taking any Imodium without stool studies. He is to either brat diet. Follow up with his doctor and return for any new or worsening symptoms. Patient was agreeable to the plan and was discharged in stable condition Undiagnosed new problem with uncertain prognosis? @ -yes Drug Therapy requiring intensive monitoring for toxicity (Heparin, Nitro, Insulin, Cardizem)? @ -No Were any procedures done? @ -No Diagnosis/symptom? @ -acute diarrhea Acute, or Chronic, or Acute on Chronic? @ -acute Uncomplicated (without systemic symptoms) or Complicated (systemic symptoms)? @ -complicated Side effects of treatment? @ -No Exacerbation, Progression, or Severe Exacerbation? @ -No Poses a threat to life or bodily function? How? (Chest pain, USA, CA, pneumonia, PE, COPD, DKA, ARF, appy, cholecystitis, CVA, Diverticulitis, Homicidal, Suicidal, threat to staff... and all critical care pts) @ -No - Lab Data Result diagrams: 04/24/23 10:01 04/24/23 10:01 Lab Results 04/24/23 04/24/23 04/24/23 Range/Units 10:01 10:01 10:01 WBC 6.1 (3.8-10.6) k/uL RBC 3.47 L (4.30-5.90) m/uL Hgb 11.6 L (13.0-17.5) gm/dL Hct 35.2 L (39.0-53.0) % MCV 101.6 H (80.0-100.0) fL MCH 33.6 (25.0-35.0) pg MCHC 33.0 (31.0-37.0) g/dL RDW 13.4 (11.5-15.5) % Plt Count 216 (150-450) k/uL MPV 8.8 Neutrophils % 59 % Lymphocytes % 25 % Monocytes % 9 % Eosinophils % 5 % Basophils % 0 % Neutrophils # 3.6 (1.3-7.7) k/uL Lymphocytes # 1.6 (1.0-4.8) k/uL Monocytes # 0.5 (0-1.0) k/uL Eosinophils # 0.3 (0-0.7) k/uL Basophils # 0.0 (0-0.2) k/uL Macrocytosis Slight Sodium 139 (137-145) mmol/L Potassium 4.1 (3.5-5.1) mmol/L Chloride 110 H (98-107) mmol/L Carbon Dioxide 17 L (22-30) mmol/L Anion Gap 12 mmol/L BUN 63 H (9-20) mg/dL Creatinine 2.78 H (0.66-1.25) mg/dL Est GFR (CKD-EPI)AfAm 25 (>60 ml/min/1.73 sqM) Est GFR (CKD-EPI)NonAf 22 (>60 ml/min/1.73 sqM) Glucose 196 H (74-99) mg/dL Plasma Lactic Acid Michael 1.0 (0.7-2.0) mmol/L Calcium 9.7 (8.4-10.2) mg/dL Magnesium (1.6-2.3) mg/dL Total Bilirubin 0.4 (0.2-1.3) mg/dL AST 41 (17-59) U/L ALT 34 (4-49) U/L Alkaline Phosphatase 121 (38-126) U/L Total Protein 6.6 (6.3-8.2) g/dL Albumin 3.4 L (3.5-5.0) g/dL Lipase 129 (23-300) U/L 04/24/23 Range/Units 10:01 WBC (3.8-10.6) k/uL RBC (4.30-5.90) m/uL Hgb (13.0-17.5) gm/dL Hct (39.0-53.0) % MCV (80.0-100.0) fL MCH (25.0-35.0) pg MCHC (31.0-37.0) g/dL RDW (11.5-15.5) % Plt Count (150-450) k/uL MPV Neutrophils % % Lymphocytes % % Monocytes % % Eosinophils % % Basophils % % Neutrophils # (1.3-7.7) k/uL Lymphocytes # (1.0-4.8) k/uL Monocytes # (0-1.0) k/uL Eosinophils # (0-0.7) k/uL Basophils # (0-0.2) k/uL Macrocytosis Sodium (137-145) mmol/L Potassium (3.5-5.1) mmol/L Chloride (98-107) mmol/L Carbon Dioxide (22-30) mmol/L Anion Gap mmol/L BUN (9-20) mg/dL Creatinine (0.66-1.25) mg/dL Est GFR (CKD-EPI)AfAm (>60 ml/min/1.73 sqM) Est GFR (CKD-EPI)NonAf (>60 ml/min/1.73 sqM) Glucose (74-99) mg/dL Plasma Lactic Acid Michael (0.7-2.0) mmol/L Calcium (8.4-10.2) mg/dL Magnesium 1.7 (1.6-2.3) mg/dL Total Bilirubin (0.2-1.3) mg/dL AST (17-59) U/L ALT (4-49) U/L Alkaline Phosphatase (38-126) U/L Total Protein (6.3-8.2) g/dL Albumin (3.5-5.0) g/dL Lipase (23-300) U/L Disposition Clinical Impression: CKD (chronic kidney disease), Diarrhea Disposition: HOME SELF-CARE Condition: Stable Instructions (If sedation given, give patient instructions): Acute Diarrhea (ED) Additional Instructions: If you have a bowel movement at home, collect it and bring it to the outpatient lab tomorrow. I will see the results and they will additionally be sent to Dr. Castellano's office. Eat a BRAT dietbananas, rice, applesauce and toast. Stay hydrated. DO not take immodium until we get your stool results. Follow-up with your doctor and return for any new or worsening symptoms Is patient prescribed a controlled substance at d/c from ED?: No Referrals: Dwayne Castellano MD [Primary Care Provider] - 1-2 days Time of Disposition: 14:40
[2023-04-24 10:10] LABS: Basophils % (A) 0 %; Eosinophils # (A) 0.3 k/uL (0-0.7); Eosinophils % (A) 5 %; HCT 35.2 % (39.0-53.0); HGB 11.6 gm/dL (13.0-17.5); Lymphocytes # (A) 1.6 k/uL (1.0-4.8); Lymphocytes % (A) 25 %; MCH 33.6 pg (25.0-35.0); MCV 101.6 fL (80.0-100.0); Macrocytosis Slight; Mean Platelet Volume 8.8; Monocytes # (A) 0.5 k/uL (0-1.0); Monocytes % (A) 9 %; Neutrophils # (A) 3.6 k/uL (1.3-7.7); Neutrophils % (A) 59 %; Platelet Count 216 k/uL (150-450); RBC 3.47 m/uL (4.30-5.90); RDW 13.4 % (11.5-15.5); WBC 6.1 k/uL (3.8-10.6)
[2023-04-24 10:31] LABS: ALT 34 U/L (4-49); AST 41 U/L (17-59); African American GFR (CKD) 25 (>60 ml/min/1.73 sqM); Albumin 3.4 g/dL (3.5-5.0); Alkaline Phosphatase 121 U/L (38-126); Anion Gap 12 mmol/L; Blood Urea Nitrogen 63 mg/dL (9-20); Calcium 9.7 mg/dL (8.4-10.2); Carbon Dioxide 17 mmol/L (22-30); Chloride 110 mmol/L (98-107); Glucose 196 mg/dL (74-99); Lipase 129 U/L (23-300); Non-African American GFR(CKD) 22 (>60 ml/min/1.73 sqM); Potassium 4.1 mmol/L (3.5-5.1); Sodium 139 mmol/L (137-145); Total Bilirubin 0.4 mg/dL (0.2-1.3); Total Protein 6.6 g/dL (6.3-8.2)
[2023-04-24] MEDS ORDERED: SODIUM CHLORIDE 0.9% 1,000 ML IV ONE (11:12)
[2023-04-24 12:48] VITALS: PULSE 51
[2023-04-24 14:58] VITALS: BP 172/75; RESP 19; TEMP 98.6
== END 2023-04-24 14:57 | disposition home or self-care (01) ==
LOC: EC 08:43
DX: R19.7 Diarrhea, unspecified (principal); E11.22 Type 2 diabetes mellitus with diabetic chronic kidney disease; I12.9 Hypertensive chronic kidney disease with stage 1 through stage 4 chronic kidney disease, or unspecified chronic kidney disease; N18.30 Chronic kidney disease, stage 3 unspecified; J45.909 Unspecified asthma, uncomplicated; E78.5 Hyperlipidemia, unspecified; K21.9 Gastro-esophageal reflux disease without esophagitis; M10.9 Gout, unspecified; Z79.4 Long term (current) use of insulin; Z79.890 Hormone replacement therapy; Z79.899 Other long term (current) drug therapy; Z88.8 Allergy status to other drugs, medicaments and biological substances; Z91.09 Other allergy status, other than to drugs and biological substances
CPT/HCPCS: 36415; 80053; 83605; 83690; 83735; 85025; 96360; 96361; 99284

== ENCOUNTER → 2023-05-19 | Outpatient (CLI) | payer OTHER ==
--- NOTE | 2023-05-20 19:41 | NM ---
EXAMINATION TYPE: NM parathyroid w/spect DATE OF EXAM: 05/19/2023 COMPARISON: NONE CLINICAL INDICATION: Male, 72 years old with history of HYPERCALCEMIA E83.52; TECHNIQUE: Following administration of 24.8 mCi Tc99m Sestamibi. Anterior projection images of the neck and ches t were obtained 10 minutes and 3 hours post injection. SPECT images of the neck and chest were obtai cheli and reconstructed in three axes. FINDINGS: Thyroid tracer washout: Delayed images demonstrate near-complete tracer washout from the thyroid. Parathyroid uptake: Within the inferior aspect of the right thyroid gland is area of abnormal uptake on delayed imaging suspicious for parathyroid adenoma. No additional persistent uptake in the region of the parathyroid glands to suggest parathyroid adenoma. Normal uptake: There is physiological tracer uptake in the myocardium, liver, salivary glands, and th yroid gland. IMPRESSION: Findings suspicious for right lower thyroid parathyroid adenoma.
== END | disposition home or self-care (01) ==
LOC: RADNMMAIN 10:47
PROVIDERS: ATTEND Internal Medicine Nephrology
DX: E83.52 Hypercalcemia (principal)
CPT/HCPCS: 78071; A9500

== ENCOUNTER → 2023-06-23 | Outpatient (CLI) | payer MEDICARE | END | disposition home or self-care (01) | LOC: LABWHC1 10:49 | PROVIDERS: ATTEND Transplant Surgery | DX: E21.2 Other hyperparathyroidism (principal) | CPT/HCPCS: 36415; 85730 ==

== ENCOUNTER → 2023-06-30 | Outpatient (CLI) | payer OTHER, MEDICARE ==
--- NOTE | 2023-07-01 07:33 | US ---
EXAMINATION TYPE: US thyroid st tissue head/neck DATE OF EXAM: 06/30/2023 COMPARISON: ME parathyroid 05/19/23 CLINICAL INDICATION: Male, 73 years old with history of E21.0 PRIMARY HYPERPARATHYROIDISM; Patient is on thyroid medication. Finding found on ME parathyroid 05/19/23. GLAND SIZE: Right Lobe: 3.9 x 1.7 x 1.2 cm Overall Parenchyma: heterogenous Left Lobe: 4.5 x 1.4 x 1.5 cm Overall Parenchyma: heterogenous Isthmus Thickness: 0.2 cm NODULES RIGHT: # of nodules measured on right: 1 1. 1.4 X 1.6 x 0.8 cm, lower medial, solid or almost completely solid, hypoechoic nodule, which is wider than tall, with smooth margins, without echogenic foci. Prior size: no prior LEFT: # of nodules measured on left: 3, additional less than 5 mm nodules seen, not measured. 1. 0.8 X 0.8 x 0.6 cm, lower lateral, mixed cystic and solid, hypoechoic nodule, which is wider cesario n tall, with smooth margins, without echogenic foci. TR 3. Prior size: no prior 2. 0.7 X 0.7 x 0.6 cm, lower lateral, mixed cystic and solid, septated anechoic nodule, which is w ider than tall, with smooth margins, without echogenic foci. TR 2. Prior size: no prior 3. 0.8 X 0.6 x 0.4 cm, mid mid, mixed cystic and solid, septated anechoic nodule, which is wider th an tall, with smooth margins, with echogenic foci. TR 4. Prior size: no prior ISTHMUS: # of nodules measured in the isthmus: 0 Bilateral neck scanned, no evidence of lymphadenopathy. IMPRESSION: 1. Lower right 1.4 cm ovoid nodule which abuts the thyroid parenchyma and could represent parathyroi d adenoma corresponding to nuclear medicine scan. 2. Additional subcentimeter left thyroid lobe nodules.
== END | disposition home or self-care (01) ==
LOC: RADUSWWP 16:15
PROVIDERS: ATTEND Transplant Surgery
DX: E21.0 Primary hyperparathyroidism (principal); E04.2 Nontoxic multinodular goiter
CPT/HCPCS: 76536

== ENCOUNTER → 2023-10-12 | Outpatient (CLI) | payer MEDICARE ==
--- NOTE | 2023-10-17 10:29 | MR ---
EXAMINATION TYPE: MR brain/lspine wo con DATE OF EXAM: 10/12/2023 COMPARISON: MRI brain 04/13/2023 [facility] 04/15/2023 CT 04/14/2030 HISTORY: Right leg weakness, dizziness, LBP, BLE radiculopathy, falls, hypotension. CONTRAST: Performed utilizing 0 mL intravenous Gadavist gadolinium contrast. TECHNIQUE: Multiplanar, multiecho imaging on a 3.0 Marta magnet is performed through the brain. Stud y is performed within 24 hours of arrival to the hospital. The craniovertebral junction is normal. The pituitary is normal. Diffusion-weighted imaging is performed. No abnormal hyperintensity is present to suggest an acute i ntracranial infarct or acute ischemic change. Small hyperintensities within the posterior limb left basal ganglia may be a small lacunar infarct. T here is blooming effect compatible with the patient's prior hemorrhage at this location. Small change is in the right caudate head. Patchy periventricular white matter hypodensity is present, likely on the basis of chronic white matter ischemic changes. Ventricles and sulci are somewhat prominent for the patient age. IMPRESSION: 1. Chronic appearing periventricular white matter ischemic-type changes. 2. There may be an old small lacunar infarct left basal ganglion EXAMINATION TYPE: MR brain/lspine wo con DATE OF EXAM: 10/12/2023 COMPARISON: None HISTORY: Right leg weakness, dizziness, LBP, BLE radiculopathy, falls, hypotension. CONTRAST: 0 mL intravenous Gadavist. TECHNIQUE: Multiplanar, multisequence images of the lumbar spine were acquired. FINDINGS: L5-S1: There is a small central disc bulge with anterior thecal sac compression. No spinal canal sten osis is present. Facet hypertrophy and ligamentum flavum laxity is present. Neural foramen are patent L4-L5: No spinal canal stenosis is present. Broad-based disc bulge is present with anterior thecal sa c flattening. Facet hypertrophy is present with posterior lateral thecal sac compression, greater on the right. Moderate right and mild left foraminal stenosis is present. L3-L4: Central disc bulge is present with mild extension beyond the endplates. Facet hypertrophy with ligamentum flavum laxity is contributing to AP spinal canal stenosis at this level. L2-L3: Disc bulges anterior thecal sac contact. No AP spinal canal stenosis present. Some facet hyper trophy is present. There is severe right and left foraminal stenosis. L2: There is signal increase on version recovery and T2 sequences. No loss of disc height is present. This is mildly diminished signal on T1 sequences. Posttraumatic change and metastasis should be cons idered. L1-L2: Minimal disc bulge present. No focal disc herniation is evident. Disc height is preserved. No spinal canal stenosis is present. Normal foramen are patent T12-L1: No significant disc bulge or disc herniation. No spinal canal stenosis. No foraminal stenos is. IMPRESSION: 1. 1. Posttraumatic change L2 without significant loss of vertebral body height. Consider metastasis wit hin the differential 2. Spinal canal stenosis secondary to disc bulging and ligamentum flavum laxity L3-4. 3. Foraminal narrowing appears severe bilaterally at L2-3
== END | disposition home or self-care (01) ==
LOC: RADMRIMAIN 06:04
PROVIDERS: ATTEND Family Medicine
DX: G93.89 Other specified disorders of brain (principal); M99.73 Connective tissue and disc stenosis of intervertebral foramina of lumbar region; M48.061 Spinal stenosis, lumbar region without neurogenic claudication; M51.16 Intervertebral disc disorders with radiculopathy, lumbar region; M24.28 Disorder of ligament, vertebrae; I95.9 Hypotension, unspecified; R53.1 Weakness; W19.XXXA Unspecified fall, initial encounter
CPT/HCPCS: 70551; 72148

== ENCOUNTER 2023-10-18 17:21 | Emergency (ER) | payer MEDICARE ==
--- NOTE | 2023-10-18 17:29 | ED ---
Male Urogenital HPI - General Source: patient, RN notes reviewed <Lilia Sánchez - Last Filed: 10/18/23 17:28> <Oanh Mattson - Last Filed: 10/20/23 03:50> - General Stated complaint: Urogenital Time Seen by Provider: 10/18/23 17:28 - History of Present Illness Initial comments: Patient is 73-year-old male presented ER with chief complaint of difficulty urinating. Patient states he has not been able to urinate in the past day. reports that he urinated about a teaspoon earlier today. Patient is being treated for chronic kidney disease. Patient denies any chest pain, shortness of breath, fevers, chills, night sweats. (Lilia Sánchez) Patient is a 73-year-old male with a history of chronic kidney disease presents ER today with report of decreased urine output. Patient reports he's not really felt the urge to urinate but also cannot urinate. He states that he was able to provide a urine sample around 9 PM today and that was the first time he urinated today. He's been eating and drinking like usual no recent illness. No history of known prostate disorder never had have a Garcia catheter. (Oanh Mattson) - Related Data Home Medications Medication Instructions Recorded Confirmed Bumetanide [BUMEX] 2 mg PO DAILY 09/21/19 08/23/23 INSULIN ASPART (NovoLOG) [NovoLOG 15 unit SQ AC-TID 12/02/20 08/23/23 (formulary)] Insulin Glargine [Lantus Vial] 22 unit SQ HS 12/02/20 08/23/23 Bumetanide [BUMEX] 1 mg PO HS 04/12/23 08/23/23 Colchicine [Colcrys] 0.6 mg PO DAILY PRN 04/12/23 08/23/23 Famotidine 20 mg PO DAILY PRN 04/12/23 08/23/23 Febuxostat [Uloric] 40 mg PO DAILY 04/12/23 08/23/23 Ferrous Sulfate [Iron (65 MG 325 mg PO TID 04/12/23 08/23/23 Elemental)] Imatinib Mesylate [Gleevec] 400 mg PO HS@199904/12/23 08/23/23 Levothyroxine Sodium [Synthroid] 50 mcg PO DAILY 04/12/23 08/23/23 Magnesium Oxide 420mg 420 mg PO DAILY 04/12/23 08/23/23 Simvastatin [Zocor] 10 mg PO HS 04/12/23 08/23/23 Sucralfate [Carafate] 1 gm PO ACHS 04/12/23 08/23/23 calcitrioL [Rocaltrol] 0.25 mcg PO MOTUWETHFR 04/12/23 08/23/23 carvediloL [Coreg] 12.5 mg PO BID 04/12/23 08/23/23 Calcium Carbonate [Tums] 500 mg PO TID 08/02/23 08/23/23 Allergies Allergy/AdvReac Type Severity Reaction Status Date / Time lisinopril Allergy Unknown Verified 10/18/23 17:31 TIDE LAUNDRY SOAP Allergy Severe Rash/Hives Uncoded 08/23/23 08:23 Review of Systems ROS Other: All systems not noted in ROS Statement are negative. <Lilia Sánchez - Last Filed: 10/18/23 17:28> ROS Other: All systems not noted in ROS Statement are negative. <Oanh Mattson - Last Filed: 10/20/23 03:50> ROS Statement: Those systems with pertinent positive or pertinent negative responses have been documented in the HPI. 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 ckd. History of Any Multi-Drug Resistant Organisms: None Reported Past Surgical History: Cholecystectomy, Hernia Repair Additional Past Surgical History / Comment(s): 09/2019 bone marrow biopsy, incisional hernia, colonoscopy with benign polyps. Right cataract removal with IOL implant. PARATHYROIDECTOMY - July 2023 Past Anesthesia/Blood Transfusion Reactions: No Reported Reaction Smoking Status: Former smoker - Past Family History Father Family Medical History: Diabetes Mellitus Additional Family Medical History / Comment(s): Father is 97 yrs old. Mother Family Medical History: Dementia Additional Family Medical History / Comment(s): Mother of dementia at the age of 85yrs. <Lilia Sánchez - Last Filed: 10/18/23 17:28> General Exam General appearance: alert, in no apparent distress <Lilia Sánchez - Last Filed: 10/18/23 17:28> <Oanh Mattson - Last Filed: 10/20/23 03:50> - General Exam Comments Initial Comments: Physical Exam GENERAL: Patient is well-developed and well-nourished. Patient is nontoxic and well-hydrated and is in no distress morbidly obese HENT: Normocephalic, Atraumatic. EYES: PERRL, EOMI PULMONARY: Unlabored respirations. CARDIOVASCULAR: RRR Warm and well perfused extremities ABDOMEN: Non-distended SKIN: No rashes or bruising : Deferred NEUROLOGIC: Alert and oriented Normal speech MUSCULOSKELETAL: Moving all extremities with no apparent injury PSYCHIATRIC: No SI/HI (Oanh Mattson) Course Vital Signs 10/18/23 12 17:28 02:04 Temperature 98.6 F 97.8 F Pulse Rate 79 79 Respiratory 18 17 Rate Blood Pressure 206/73 O2 Sat by Pulse 97 97 Oximetry Medical Decision Making <Lilia Sánchez - Last Filed: 10/18/23 17:28> - Lab Data Result diagrams: 10/18/23 18:23 10/18/23 18:23 <Oanh Mattson - Last Filed: 10/20/23 03:50> - Medical Decision Making I performed the quick note portion of the exam. Electronically signed by Lilia Sánchez PA-C (Lilia Sánchez) Was pt. sent in by a medical professional or institution ([facility], [facility], urgent care, hospital, or longterm...) When possible be specific @ No Did you speak to anyone other than the patient for history (EMS, parent, family, police, friend...)? What history was obtained from this source @ - Did you review nursing and triage notes (agree or disagree)? Why? @ -I reviewed and agree with nursing and triage notes Were old charts reviewed (outside hosp., previous admission, EMS record, old EKG, old radiological studies, urgent care reports/EKG's, longterm records)? Report findings @ -No old charts were reviewed Differential Diagnosis (chest pain, altered mental status, abdominal pain women, abdominal pain men, vaginal bleeding, weakness, fever, dyspnea, syncope, headache, dizziness, GI bleed, back pain, seizure, CVA, palpatations, mental health)? @ Differential includes urinary output obstruction, urinary tract infection, stone EKG interpreted by me (3pts min.). @ -As above X-rays interpreted by me (1pt min.). @ -None done CT interpreted by me (1pt min.). @ -None done U/S interpreted by me (1pt. min.). @ -None done What testing was considered but not performed or refused? (CT, X-rays, U/S, labs)? Why? @ -None What meds were considered but not given or refused? Why? @ -None Did you discuss the management of the patient with other professionals (professionals i.e. , PA, [facility], lab, RT, psych nurse, social worker health services, medical hospital sales, teacher, school resource officer, field nurse case manager)? Give summary @ -No Was smoking cessation discussed for >3mins.? @ -No Was critical care preformed (if so, how long)? @ -No Were there social determinants of health that impacted care today? How? (Homelessness, low income, unemployed, alcoholism, drug addiction, transportation, low edu. Level, literacy, decrease access to med. care, penitentiary, rehab)? @ -No Was there de-escalation of care discussed even if they declined (Discuss DNR or withdrawal of care, Hospice)? DNR status @ -No What co-morbidities impacted this encounter? (DM, HTN, Smoking, COPD, CAD, Cancer, CVA, ARF, Chemo, Hep., AIDS, mental health diagnosis, sleep apnea, morbid obesity)? @ -None Was patient admitted / discharged? Hospital course, mention meds given and route, prescriptions, significant lab abnormalities, going to OR and other pertinent info. @ Discharge Patient was initiated in the waiting room due to prolonged wait times, patient provide a urine sample showed no signs of infection. On my evaluation patient reported no urge to urinate but on bladder scan had 387 mL's, patient attempted to urinate was unable to produce any urine. Discussed with the patient that I would recommend Garcia catheter due to inability to urinate. Garcia catheter was placed patient was discharged home with plan for outpatient follow-up with urology. Undiagnosed new problem with uncertain prognosis? @ -No Drug Therapy requiring intensive monitoring for toxicity (Heparin, Nitro, Insulin, Cardizem)? @ -No Were any procedures done? @ -No Diagnosis/symptom? @ urinary retention Acute, or Chronic, or Acute on Chronic? @ -Acute Uncomplicated (without systemic symptoms) or Complicated (systemic symptoms)? @ -default Side effects of treatment? @ -No Exacerbation, Progression, or Severe Exacerbation? @ -No Poses a threat to life or bodily function? How? (Chest pain, [place], [place], pneumonia, PE, COPD, DKA, ARF, appy, cholecystitis, CVA, Diverticulitis, Homicidal, Suicidal, threat to staff... and all critical care pts) @ Unlikely (Oanh Mattson) - Lab Data Lab Results 10/18/23 10/18/23 10/18/23 Range/Units 18:23 18:23 21:06 WBC 8.3 (3.8-10.6) k/uL RBC 3.40 L (4.30-5.90) m/uL Hgb 11.4 L (13.0-17.5) gm/dL Hct 33.5 L (39.0-53.0) % MCV 98.7 (80.0-100.0) fL MCH 33.5 (25.0-35.0) pg MCHC 33.9 (31.0-37.0) g/dL RDW 13.3 (11.5-15.5) % Plt Count 207 (150-450) k/uL MPV 7.9 Sodium 142 (137-145) mmol/L Potassium 4.2 (3.5-5.1) mmol/L Chloride 106 (98-107) mmol/L Carbon Dioxide 25 (22-30) mmol/L Anion Gap 11 mmol/L BUN 54 H (9-20) mg/dL Creatinine 1.96 H (0.66-1.25) mg/dL Est GFR (CKD-EPI)AfAm 38 (>60 ml/min/1.73 sqM) Est GFR (CKD-EPI)NonAf 33 (>60 ml/min/1.73 sqM) Glucose 174 H (74-99) mg/dL Calcium 9.1 (8.4-10.2) mg/dL Total Bilirubin 0.6 (0.2-1.3) mg/dL AST 38 (17-59) U/L ALT 29 (4-49) U/L Alkaline Phosphatase 289 H (38-126) U/L Total Protein 6.5 (6.3-8.2) g/dL Albumin 3.5 (3.5-5.0) g/dL Urine Color Colorless Urine Appearance Clear (Clear) Urine pH 6.0 (5.0-8.0) Ur Specific [place] 1.016 (1.001-1.035) Urine Protein 1+ H (Negative) Urine Glucose (UA) Negative (Negative) Urine Ketones Negative (Negative) Urine Blood Negative (Negative) Urine Nitrite Negative (Negative) Urine Bilirubin Negative (Negative) Urine Urobilinogen <2.0 (<2.0) mg/dL Ur Leukocyte Esterase Negative (Negative) Ur Squamous Epith Cells 2 (0-4) /hpf Hyaline Casts 4 H (0-2) /lpf Urine Mucus Rare H (None) /hpf Disposition <Lilia Sánchez - Last Filed: 10/18/23 17:28> Is patient prescribed a controlled substance at d/c from ED?: No <Oanh Mattson - Last Filed: 10/20/23 03:50> Clinical Impression: Difficulty urinating Disposition: HOME SELF-CARE Condition: Stable Referrals: Dwayne Castellano MD [Primary Care Provider] - 1-2 days
[2023-10-18 17:40] VITALS: BP 206/73; PULSE 79
[2023-10-18 18:46] LABS: HCT 33.5 % (39.0-53.0); HGB 11.4 gm/dL (13.0-17.5); MCH 33.5 pg (25.0-35.0); MCHC 33.9 g/dL (31.0-37.0); MCV 98.7 fL (80.0-100.0); Mean Platelet Volume 7.9; Platelet Count 207 k/uL (150-450); RDW 13.3 % (11.5-15.5); WBC 8.3 k/uL (3.8-10.6)
[2023-10-18 18:57] LABS: ALT 29 U/L (4-49); AST 38 U/L (17-59); African American GFR (CKD) 38 (>60 ml/min/1.73 sqM); Albumin 3.5 g/dL (3.5-5.0); Alkaline Phosphatase 289 U/L (38-126); Anion Gap 11 mmol/L; Blood Urea Nitrogen 54 mg/dL (9-20); Calcium 9.1 mg/dL (8.4-10.2); Carbon Dioxide 25 mmol/L (22-30); Chloride 106 mmol/L (98-107); Glucose 174 mg/dL (74-99); Non-African American GFR(CKD) 33 (>60 ml/min/1.73 sqM); Potassium 4.2 mmol/L (3.5-5.1); Sodium 142 mmol/L (137-145); Total Bilirubin 0.6 mg/dL (0.2-1.3); Total Protein 6.5 g/dL (6.3-8.2)
[2023-10-18 21:31] LABS: Appearance,Urine Clear (Clear); Bilirubin,Urine Negative (Negative); Blood,Urine Negative (Negative); Color,Urine Colorless; Glucose,Urine (UA) Negative (Negative); Hyaline Casts,Urine 4 /lpf (0-2); Ketones,Urine Negative (Negative); Leukocyte Esterase,Urine Negative (Negative); Mucus,Urine Rare /hpf; Nitrite,Urine Negative (Negative); Protein,Urine 1+ (Negative); Specific Gravity,Urine 1.016 (1.001-1.035); Squamous Epithelial Cell,Urine 2 /hpf (0-4); Urobilinogen,Urine <2.0 mg/dL (<2.0)
[2023-10-19 02:14] VITALS: RESP 17; TEMP 97.8
== END 2023-10-19 02:03 | disposition home or self-care (01) ==
LOC: EC 17:21
DX: R39.198 Other difficulties with micturition (principal); E11.22 Type 2 diabetes mellitus with diabetic chronic kidney disease; I12.9 Hypertensive chronic kidney disease with stage 1 through stage 4 chronic kidney disease, or unspecified chronic kidney disease; N18.9 Chronic kidney disease, unspecified; E78.5 Hyperlipidemia, unspecified; E11.10 Type 2 diabetes mellitus with ketoacidosis without coma; I21.9 Acute myocardial infarction, unspecified; I25.10 Atherosclerotic heart disease of native coronary artery without angina pectoris; J44.89 Other specified chronic obstructive pulmonary disease; K21.9 Gastro-esophageal reflux disease without esophagitis; M19.041 Primary osteoarthritis, right hand; M19.042 Primary osteoarthritis, left hand; Z59.6 Low income; Z59.00 Homelessness unspecified; Z87.891 Personal history of nicotine dependence; Z88.8 Allergy status to other drugs, medicaments and biological substances; Z79.890 Hormone replacement therapy; Z79.4 Long term (current) use of insulin; Z79.899 Other long term (current) drug therapy
CPT/HCPCS: 36415; 51702; 51798; 80053; 81001; 85027; 99284

== ENCOUNTER 2024-03-26 19:06 | Inpatient (IN) | payer MEDICARE ==
[2024-03-26 20:49] LABS: ALT 36 U/L (4-49); AST 50 U/L (17-59); African American GFR (CKD) 23 (>60 ml/min/1.73 sqM); Albumin 4.2 g/dL (3.5-5.0); Alkaline Phosphatase 171 U/L (38-126); Anion Gap 7 mmol/L; Blood Urea Nitrogen 99 mg/dL (9-20); Calcium 9.1 mg/dL (8.4-10.2); Carbon Dioxide 33 mmol/L (22-30); Chloride 95 mmol/L (98-107); Glucose 276 mg/dL (74-99); Non-African American GFR(CKD) 20 (>60 ml/min/1.73 sqM); Potassium 3.4 mmol/L (3.5-5.1); Sodium 135 mmol/L (137-145); Total Bilirubin 0.7 mg/dL (0.2-1.3); Total Protein 7.5 g/dL (6.3-8.2)
[2024-03-26 20:56] LABS: INR 0.9 (<1.2); Partial Thromboplastin Time 23.2 sec (22.0-30.0); Prothrombin Time 10.1 sec (10.0-12.5)
[2024-03-26 21:02] LABS: Basophils % (A) 0 %; Eosinophils # (A) 0.2 k/uL (0-0.7); Eosinophils % (A) 3 %; HCT 39.7 % (39.0-53.0); HGB 13.1 gm/dL (13.0-17.5); Lymphocytes # (A) 0.9 k/uL (1.0-4.8); Lymphocytes % (A) 12 %; MCH 31.2 pg (25.0-35.0); MCV 94.5 fL (80.0-100.0); Mean Platelet Volume 8.8; Monocytes # (A) 0.8 k/uL (0-1.0); Monocytes % (A) 12 %; Neutrophils # (A) 5.1 k/uL (1.3-7.7); Neutrophils % (A) 71 %; Platelet Count 146 k/uL (150-450); RDW 15.1 % (11.5-15.5); WBC 7.2 k/uL (3.8-10.6)
--- NOTE | 2024-03-26 21:15 | XR ---
EXAMINATION TYPE: XR shoulder complete LT DATE OF EXAM: 03/26/2024 8:47 PM CLINICAL INDICATION:Male, 73 years old with history of r/o fx or injury; [facility] COMPARISON: Chest radiograph TECHNIQUE: XR shoulder complete LT; examined in AP, internally rotated and scapular Y projections. FINDINGS: No evidence of acute osseous pathology, joint dislocation, or soft tissue swelling. The remaining po rtions of the visualized chest are unremarkable. Mild degeneration changes of the acromion, distal c lavicle with osteophyte formation. There is osteophyte formation of the glenoid and humeral head. The re is joint space narrowing of glenohumeral joint IMPRESSION: 1. No acute osseous pathology. 2. 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
--- NOTE | 2024-03-26 21:17 | XR ---
EXAMINATION TYPE: XR chest 1V DATE OF EXAM: 03/26/2024 8:49 PM CLINICAL INDICATION:Male, 73 years old with history of r/o fx or injury; [facility] COMPARISON: Chest radiographs from 04/12/2023 TECHNIQUE: XR chest 1V Frontal view of the chest. FINDINGS: Lungs/Pleura: There is no evidence of pleural effusion, focal consolidation, or pneumothorax. Pulmonary vascularity: Unremarkable. Heart/mediastinum: Cardiomediastinal silhouette is unremarkable. Musculoskeletal: No acute osseous pathology. IMPRESSION: No acute cardiopulmonary disease/process.
--- NOTE | 2024-03-26 21:21 | XR ---
EXAMINATION TYPE: XR femur RT DATE OF EXAM: 03/26/2024 8:48 PM CLINICAL INDICATION:Male, 73 years old with history of known fx however no image available at this fa cility; COMPARISON: None TECHNIQUE: XR femur RT examined in Frontal and lateral projections. FINDINGS/IMPRESSION: * Curvilinear lucency of the distal femur metaphysis suggestive of fracture mentioned in provided hi story. The tibia appears intact. The proximal femur appears intact. * There is degeneration changes with joint space narrowing osteophyte formation of the knee. * Atherosclerosis of the arterial vasculature
[2024-03-26] MEDS: HYDROmorphone 1 MG/ML 1 ML SYRINGE IVP STA (21:30)
[2024-03-26] MEDS: ACETAMINOPHEN TAB 325 MG TAB PO PRN (23:02)
[2024-03-27 03:10] LABS: Appearance,Urine Clear (Clear); Bacteria,Urine Few /hpf; Bilirubin,Urine Negative (Negative); Blood,Urine Negative (Negative); Color,Urine Colorless; Glucose,Urine (UA) Negative (Negative); Hyaline Casts,Urine 1 /lpf (0-2); Ketones,Urine Negative (Negative); Leukocyte Esterase,Urine Moderate (Negative); Nitrite,Urine Positive (Negative); PH, Urine 5.5 (5.0-8.0); Protein,Urine Negative (Negative); RBC,Urine 1 /hpf (0-5); Urobilinogen,Urine <2.0 mg/dL (<2.0); WBC,Urine 12 /hpf (0-5)
[2024-03-27] MEDS ORDERED: NALOXONE 0.4 MG/ML 1 ML VIAL IV PRN (03:40)
[2024-03-27] MEDS ORDERED: ONDANSETRON 4 MG/2 ML VIAL IVP PRN (03:40)
--- NOTE | 2024-03-27 05:53 | ED ---
General Adult HPI - General Chief complaint: Fall Stated complaint: Femur Fracture Time Seen by Provider: 03/26/24 19:18 Source: EMS Mode of arrival: EMS - History of Present Illness Initial comments: 73-year-old male with past medical history significant for prior stroke with res idual weakness to right lower extremity presenting to the ED with complaint of right femur fracture. Patient at rehab facility. Patient states he was walking with a walker and was going between linoleum and carpet when the walker caught the carpet causing him to fall forward landing onto his right knee. No head injury at this time. No thinners. Seen at outside facility and found to have a fracture of the right distal femur and was sent here for further evaluation. No other injuries at this time. No other complaints. - Related Data Home Medications Medication Instructions Recorded Confirmed Insulin Glargine [Lantus Vial] 18 unit SQ DAILY 12/02/20 03/26/24 Colchicine [Colcrys] 0.6 mg PO DAILY 04/12/23 03/26/24 Famotidine 20 mg PO BID 04/12/23 03/26/24 Febuxostat [Uloric] 40 mg PO DAILY 04/12/23 03/26/24 Simvastatin [Zocor] 10 mg PO HS 04/12/23 03/26/24 Sucralfate [Carafate] 1 gm PO ACHS 04/12/23 03/26/24 Acetaminophen Tab [Tylenol] 650 mg PO Q4-6H PRN 03/26/24 03/26/24 Aranesp 60mcg/Ml 60 mg SQ Q14D 03/26/24 03/26/24 Baclofen 5 mg PO TID PRN 03/26/24 03/26/24 DULoxetine HCL [Cymbalta] 60 mg PO DAILY 03/26/24 03/26/24 Furosemide [Lasix] 40 mg PO BID 03/26/24 03/26/24 INSULIN LISPRO (humaLOG) [humaLOG] 9 units SQ AC-TID 03/26/24 03/26/24 Imatinib Mesylate 300 mg PO HS 03/26/24 03/26/24 Levothyroxine Sodium 50 mcg PO DAILY 03/26/24 03/26/24 Lidocaine 4% Patch 1 patch TRANSDERM DAILY 03/26/24 03/26/24 Magnesium Oxide [Magox 400] 400 mg PO DAILY 03/26/24 03/26/24 Metoclopramide [Reglan] 10 mg PO Q8H PRN 03/26/24 03/26/24 Potassium Chloride 10 meq PO DAILY 03/26/24 03/26/24 Pregabalin [Lyrica] 100 mg PO BID 03/26/24 03/26/24 Propylene Glycol [Systane Complete] 2 drop BOTH EYES Q5M PRN 03/26/24 03/26/24 Tamsulosin [Flomax] 0.4 mg PO DAILY 03/26/24 03/26/24 amLODIPine 10 mg PO DAILY 03/26/24 03/26/24 bisacodyL [Dulcolax] 10 mg RECTAL DAILY PRN 03/26/24 03/26/24 hydrALAZINE HCL [Apresoline] 25 mg PO TID 03/26/24 03/26/24 hydrALAZINE HCL [Apresoline] 50 mg PO TID 03/26/24 03/26/24 hydroCHLOROthiazide [Hydrodiuril] 25 mg PO DAILY 03/26/24 03/26/24 rOPINIRole HCL [Requip] 1 mg PO HS 03/26/24 03/26/24 Allergies Allergy/AdvReac Type Severity Reaction Status Date / Time codeine Allergy Unknown Verified 03/26/24 21:05 lisinopril Allergy Unknown Verified 03/26/24 21:05 oxycodone Allergy Unknown Verified 03/26/24 21:05 sulfamethoxazole Allergy Unknown Verified 03/26/24 21:05 [From Bactrim] trimethoprim [From Bactrim] Allergy Unknown Verified 03/26/24 21:05 TIDE LAUNDRY SOAP Allergy Severe Rash/Hives Uncoded 03/26/24 21:05 Review of Systems ROS Statement: Those systems with pertinent positive or pertinent negative responses have been documented in the HPI. ROS Other: All systems not noted in ROS Statement are negative. Past Medical History Past Medical History: Asthma, Cancer, Diabetes Mellitus, GERD/Reflux, H yperlipidemia, Hypertension, Osteoarthritis (OA), Pneumonia, Renal Disease, Sleep Apnea/CPAP/BIPAP Additional Past Medical History / Comment(s): [place] leukemia recently diagnosed and started oral chemo 10/10/19, IDDM type II, pt states he occasionally has hypoglycemia during middle of night, arthritis bilateral hands and occasionally in bilateral knees, gout R foot, WILLAM with Cpap use. ckd. History of Any Multi-Drug Resistant Organisms: None Reported Past Surgical History: Cholecystectomy, Hernia Repair Additional Past Surgical History / Comment(s): 09/2019 bone marrow biopsy, incisional hernia, colonoscopy with benign polyps. Right cataract removal with IOL implant. PARATHYROIDECTOMY - July 2023 Past Anesthesia/Blood Transfusion Reactions: No Reported Reaction Past Psychological History: No Psychological Hx Reported Smoking Status: Former smoker Past Alcohol Use History: None Reported Past Drug Use History: None Reported - Past Family History Father Family Medical History: Diabetes Mellitus Additional Family Medical History / Comment(s): Father is 97 yrs old. Mother Family Medical History: Dementia Additional Family Medical History / Comment(s): Mother of dementia at the age of 85yrs. General Exam General appearance: alert, in no apparent distress Head exam: Present: atraumatic, normocephalic, other (No carbajal signs or raccoon's eyes) Neck exam: Present: normal inspection Respiratory exam: Present: normal lung sounds bilaterally Cardiovascular Exam: Present: regular rate GI/Abdominal exam: Present: soft, normal bowel sounds. Absent: distended, tenderness, guarding, rebound, rigid Extremities exam: Present: other (Tenderness to palpation of the right distal upper leg. DP/PT pulses intact.) Back exam: Present: normal inspection Neurological exam: Present: alert, oriented X3 Skin exam: Present: warm, dry Course Vital Signs 03/26/24 03/26/24 03/26/24 19:12 21:16 22:00 Temperature 97.6 F Pulse Rate 88 96 Respiratory 18 18 18 Rate Blood Pressure 142/72 120/71 120/71 O2 Sat by Pulse 97 97 95 Oximetry 03/27/24 03/27/24 03/27/24 00:00 02:00 05:38 Temperature Pulse Rate 98 92 Respiratory 16 18 20 Rate Blood Pressure 136/72 106/55 110/82 O2 Sat by Pulse 95 95 96 Oximetry Medical Decision Making - Medical Decision Making Was pt. sent in by a medical professional or institution (, PA, AUDIOLOGY DOCTOR, urgent care, hospital, or prison...) When possible be specific @ -No Did you speak to anyone other than the patient for history (EMS, parent, family, police, friend...)? What history was obtained from this source @ -No Did you review nursing and triage notes (agree or disagree)? Why? @ -I reviewed and agree with nursing and triage notes Were old charts reviewed (outside hosp., previous admission, EMS record, old EKG, old radiological studies, urgent care reports/EKG's, prison records)? Report findings @ -Reviewed outside paperwork showing distal right femur fracture however unfortunately did not provide a disc with images. Reviewed paperwork from rehab facility and did not see any blood thinners or baby aspirin on medication list. Differential Diagnosis (chest pain, altered mental status, abdominal pain women, abdominal pain men, vaginal bleeding, weakness, fever, dyspnea, syncope, headache, dizziness, GI bleed, back pain, seizure, CVA, palpatations, mental health, musculoskeletal)? @ -Differential Musculoskeletal Muscular strain, contusion, ligament sprain, fracture, arthritis, septic arthritis, bursitis, cellulitis, muscle spasm, nerve compression, DVT, arterial occlusion, herpes zoster, electrolyte abnormality, tumor.... This is not meant to be in all inclusive list EKG interpreted by me (3pts min.). @ -None X-rays interpreted by me (1pt min.). @ -X-ray interpreted me showing distal right femur fracture CT interpreted by me (1pt min.). @ -CT of the femur pending at this time U/S interpreted by me (1pt. min.). @ -None done What testing was considered but not performed or refused? (CT, X-rays, U/S, labs)? Why? @ -None What meds were considered but not given or refused? Why? @ -None Did you discuss the management of the patient with other professionals (professionals i.e. , PA, AUDIOLOGY DOCTOR, lab, RT, psych nurse, social work therapist, hospice spiritual care coordinator, teacher, psychological operations officer, rehabilitation case coordinator)? Give summary @ -Case discussed with Dr. Camejo of orthopedic surgery who advised admission to medicine secondary to multiple comorbidities. At this time advises x-ray shows fracture with nonsurgical management however does request CT performed. If CT shows displaced fracture will take primary admission. Case discussed with Dr. Castellano, who accepts admission Was smoking cessation discussed for >3mins.? @ -No Was critical care preformed (if so, how long)? @ -No Were there social determinants of health that impacted care today? How? (Homelessness, low income, unemployed, alcoholism, drug addiction, transportation, low edu. Level, literacy, decrease access to med. care, nursing home, rehab)? @ -No Was there de-escalation of care discussed even if they declined (Discuss DNR or withdrawal of care, Hospice)? DNR status @ -No What co-morbidities impacted this encounter? (DM, HTN, Smoking, COPD, CAD, Cancer, CVA, ARF, Chemo, Hep., AIDS, mental health diagnosis, sleep apnea, morbid obesity)? @ -Prior CVA with residual weakness to right lower extremity Was patient admitted / discharged? Hospital course, mention meds given and route, prescriptions, significant lab abnormalities, going to OR and other pertinent info. @ -Admission 73-year-old male presenting to the ED with complaints of right femur fracture. Imaging was reviewed which does show this right femur fracture. Patient placed in a knee immobilizer. CT scan was performed for better visualization of fracture however at this time is pending. Patient admitted to medicine with consult to orthopedics. Undiagnosed new problem with uncertain prognosis? @ -No Drug Therapy requiring intensive monitoring for toxicity (Heparin, Nitro, Insulin, Cardizem)? @ -No Were any procedures done? @ -No Diagnosis/symptom? @ -Right femur fracture Acute, or Chronic, or Acute on Chronic? @ -Acute Uncomplicated (without systemic symptoms) or Complicated (systemic symptoms)? @ -Uncomplicated Side effects of treatment? @ -No Exacerbation, Progression, or Severe Exacerbation? @ -No Poses a threat to life or bodily function? How? (Chest pain, USA, NE, pneumonia, PE, COPD, DKA, ARF, appy, cholecystitis, CVA, Diverticulitis, Homicidal, Suicidal, threat to staff... and all critical care pts) @ -Possibly, however unlikely - Lab Data Result diagrams: 03/26/24 20:20 03/26/24 20:20 Lab Results 03/26/24 03/26/24 03/26/24 Range/Units 20:20 20:20 20:20 WBC 7.2 (3.8-10.6) k/uL RBC 4.20 L (4.30-5.90) m/uL Hgb 13.1 (13.0-17.5) gm/dL Hct 39.7 (39.0-53.0) % MCV 94.5 (80.0-100.0) fL MCH 31.2 (25.0-35.0) pg MCHC 33.0 (31.0-37.0) g/dL RDW 15.1 (11.5-15.5) % Plt Count 146 L (150-450) k/uL MPV 8.8 Neutrophils % 71 % Lymphocytes % 12 % Monocytes % 12 % Eosinophils % 3 % Basophils % 0 % Neutrophils # 5.1 (1.3-7.7) k/uL Lymphocytes # 0.9 L (1.0-4.8) k/uL Monocytes # 0.8 (0-1.0) k/uL Eosinophils # 0.2 (0-0.7) k/uL Basophils # 0.0 (0-0.2) k/uL PT 10.1 (10.0-12.5) sec INR 0.9 (<1.2) APTT 23.2 (22.0-30.0) sec Sodium 135 L (137-145) mmol/L Potassium 3.4 L (3.5-5.1) mmol/L Chloride 95 L (98-107) mmol/L Carbon Dioxide 33 H (22-30) mmol/L Anion Gap 7 mmol/L BUN 99 H (9-20) mg/dL Creatinine 2.94 H (0.66-1.25) mg/dL Est GFR (CKD-EPI)AfAm 23 (>60 ml/min/1.73 sqM) Est GFR (CKD-EPI)NonAf 20 (>60 ml/min/1.73 sqM) Glucose 276 H (74-99) mg/dL Calcium 9.1 (8.4-10.2) mg/dL Total Bilirubin 0.7 (0.2-1.3) mg/dL AST 50 (17-59) U/L ALT 36 (4-49) U/L Alkaline Phosphatase 171 H (38-126) U/L Total Protein 7.5 (6.3-8.2) g/dL Albumin 4.2 (3.5-5.0) g/dL Urine Color Urine Appearance (Clear) Urine pH (5.0-8.0) Ur Specific [place] (1.001-1.035) Urine Protein (Negative) Urine Glucose (UA) (Negative) Urine Ketones (Negative) Urine Blood (Negative) Urine Nitrite (Negative) Urine Bilirubin (Negative) Urine Urobilinogen (<2.0) mg/dL Ur Leukocyte Esterase (Negative) Urine RBC (0-5) /hpf Urine WBC (0-5) /hpf Urine Bacteria (None) /hpf Hyaline Casts (0-2) /lpf Blood Type Blood Type Confirm Blood Type Recheck Bld Type Recheck Status Antibody Screen Spec Expiration Date 03/26/24 03/26/24 03/27/24 Range/Units 20:20 21:02 02:09 WBC (3.8-10.6) k/uL RBC (4.30-5.90) m/uL Hgb (13.0-17.5) gm/dL Hct (39.0-53.0) % MCV (80.0-100.0) fL MCH (25.0-35.0) pg MCHC (31.0-37.0) g/dL RDW (11.5-15.5) % Plt Count (150-450) k/uL MPV Neutrophils % % Lymphocytes % % Monocytes % % Eosinophils % % Basophils % % Neutrophils # (1.3-7.7) k/uL Lymphocytes # (1.0-4.8) k/uL Monocytes # (0-1.0) k/uL Eosinophils # (0-0.7) k/uL Basophils # (0-0.2) k/uL PT (10.0-12.5) sec INR (<1.2) APTT (22.0-30.0) sec Sodium (137-145) mmol/L Potassium (3.5-5.1) mmol/L Chloride (98-107) mmol/L Carbon Dioxide (22-30) mmol/L Anion Gap mmol/L BUN (9-20) mg/dL Creatinine (0.66-1.25) mg/dL Est GFR (CKD-EPI)AfAm (>60 ml/min/1.73 sqM) Est GFR (CKD-EPI)NonAf (>60 ml/min/1.73 sqM) Glucose (74-99) mg/dL Calcium (8.4-10.2) mg/dL Total Bilirubin (0.2-1.3) mg/dL AST (17-59) U/L ALT (4-49) U/L Alkaline Phosphatase (38-126) U/L Total Protein (6.3-8.2) g/dL Albumin (3.5-5.0) g/dL Urine Color Colorless Urine Appearance Clear (Clear) Urine pH 5.5 (5.0-8.0) Ur Specific [place] 1.010 (1.001-1.035) Urine Protein Negative (Negative) Urine Glucose (UA) Negative (Negative) Urine Ketones Negative (Negative) Urine Blood Negative (Negative) Urine Nitrite Positive (Negative) Urine Bilirubin Negative (Negative) Urine Urobilinogen <2.0 (<2.0) mg/dL Ur Leukocyte Esterase Moderate H (Negative) Urine RBC 1 (0-5) /hpf Urine WBC 12 H (0-5) /hpf Urine Bacteria Few H (None) /hpf Hyaline Casts 1 (0-2) /lpf Blood Type A Positive Blood Type Confirm A Positive Blood Type Recheck No Previous Record Bld Type Recheck Status CABO Indicated Antibody Screen NEGATIVE Spec Expiration Date 03/29/20242319 Disposition Clinical Impression: Femur fracture, right Disposition: ADMITTED IP TO THIS HOSP Condition: Fair
--- NOTE | 2024-03-27 09:05 | CT ---
EXAMINATION TYPE: CT knee RT wo con CT DLP: 201.4 mGycm, Automated exposure control for dose reduction was used. DATE OF EXAM: 03/27/2024 8:40 AM COMPARISON: . 03/26/2024. CLINICAL INDICATION:Male, 73 years old with history of known fx. better picture; [facility], Patient is comi ng to facility after a fall at therapy. Patient is coming from [facility]. TECHNIQUE: Axial images were obtained of the CT knee RT wo con, Additional coronal and sagittal refor matted images and soft tissue and bone window were obtained for review. 3-D reconstruction was create d on a separate workstation. Contrast used: mL of , (None if empty) Oral contrast used: (None if empty) FINDINGS: Comminuted fractures of the distal right femur metadiaphysis with intra-articular extension and multiple fracture fragments present. The tibial plateau and fibula, patella all appear intact. T here are severe atherosclerosis of the arterial vasculature. IMPRESSION: Comminuted distal right femur fracture with intra-articular extension involving the metaphysis extend ing to the joint. Orthopedic consultation recommended. Nonweightbearing recommended.
[2024-03-27] MEDS: POTASSIUM CHLORIDE ER 20 MEQ TAB.ER PO STA (11:10)
--- NOTE | 2024-03-27 13:01 | P.CNOR ---
History of Present Illness - HPI Consult date: 03/27/24 History of present illness: This is a 73-year-old male who is admitted after a fall. Patient states that he has been at [facility] for rehab since October 2023 after back surgery at [facility]. Patient states that last night he tripped when walking from linoleum to carpet and fell onto the right knee. Patient reports pain in the right knee. Patient states that he normally ambulates well with a walker and was going to be discharged home within the next week. Patient's past medical history significant for asthma, diabetes mellitus, GERD, hyperlipidemia, hypertension, sleep apnea, renal disease, history of pneumonia, osteoarthritis, and history of leukemia. Patient denies any fever/chills, chest pain, shortness breath, abdominal pain, numbness, weakness or tingling. Review of Systems See HPI. Past Medical History Past Medical History: Asthma, Cancer, Diabetes Mellitus, GERD/Reflux, Hyperlipidemia, Hypertension, Osteoarthritis (OA), Pneumonia, Renal Disease, Sleep Apnea/CPAP/BIPAP Additional Past Medical History / Comment(s): [place] leukemia recently diagnosed and started oral chemo 10/10/19, IDDM type II, pt states he occasionally has hypoglycemia during middle of night, arthritis bilateral hands and occasionally in bilateral knees, gout R foot, WILLAM with Cpap use. ckd. History of Any Multi-Drug Resistant Organisms: None Reported Past Surgical History: Cholecystectomy, Hernia Repair Additional Past Surgical History / Comment(s): 09/2019 bone marrow biopsy, incisional hernia, colonoscopy with benign polyps. Right cataract removal with IOL implant. PARATHYROIDECTOMY - July 2023 Past Anesthesia/Blood Transfusion Reactions: No Reported Reaction Past Psychological History: No Psychological Hx Reported Smoking Status: Former smoker Past Alcohol Use History: None Reported Past Drug Use History: None Reported - Past Family History Father Family Medical History: Diabetes Mellitus Additional Family Medical History / Comment(s): Father is 97 yrs old. Mother Family Medical History: Dementia Additional Family Medical History / Comment(s): Mother of dementia at the age of 85yrs. Medications and Allergies Home Medications Medication Instructions Recorded Confirmed Type Insulin Glargine [Lantus Vial] 18 unit SQ DAILY 12/02/20 03/26/24 History Colchicine [Colcrys] 0.6 mg PO DAILY 04/12/23 03/26/24 History Famotidine 20 mg PO BID 04/12/23 03/26/24 History Febuxostat [Uloric] 40 mg PO DAILY 04/12/23 03/26/24 History Simvastatin [Zocor] 10 mg PO HS 04/12/23 03/26/24 History Sucralfate [Carafate] 1 gm PO ACHS 04/12/23 03/26/24 History Acetaminophen Tab [Tylenol] 650 mg PO Q4-6H PRN 03/26/24 03/26/24 History Aranesp 60mcg/Ml 60 mg SQ Q14D 03/26/24 03/26/24 History Baclofen 5 mg PO TID PRN 03/26/24 03/26/24 History DULoxetine HCL [Cymbalta] 60 mg PO DAILY 03/26/24 03/26/24 History Furosemide [Lasix] 40 mg PO BID 03/26/24 03/26/24 History INSULIN LISPRO (humaLOG) [humaLOG] 9 units SQ AC-TID 03/26/24 03/26/24 History Imatinib Mesylate 300 mg PO HS 03/26/24 03/26/24 History Levothyroxine Sodium 50 mcg PO DAILY 03/26/24 03/26/24 History Lidocaine 4% Patch 1 patch TRANSDERM DAILY 03/26/24 03/26/24 History Magnesium Oxide [Magox 400] 400 mg PO DAILY 03/26/24 03/26/24 History Metoclopramide [Reglan] 10 mg PO Q8H PRN 03/26/24 03/26/24 History Potassium Chloride 10 meq PO DAILY 03/26/24 03/26/24 History Pregabalin [Lyrica] 100 mg PO BID 03/26/24 03/26/24 History Propylene Glycol [Systane Complete] 2 drop BOTH EYES Q5M PRN 03/26/24 03/26/24 History Tamsulosin [Flomax] 0.4 mg PO DAILY 03/26/24 03/26/24 History amLODIPine 10 mg PO DAILY 03/26/24 03/26/24 History bisacodyL [Dulcolax] 10 mg RECTAL DAILY PRN 03/26/24 03/26/24 History hydrALAZINE HCL [Apresoline] 25 mg PO TID 03/26/24 03/26/24 History hydrALAZINE HCL [Apresoline] 50 mg PO TID 03/26/24 03/26/24 History hydroCHLOROthiazide [Hydrodiuril] 25 mg PO DAILY 03/26/24 03/26/24 History rOPINIRole HCL [Requip] 1 mg PO HS 03/26/24 03/26/24 History Allergies Allergy/AdvReac Type Severity Reaction Status Date / Time codeine Allergy Unknown Verified 03/26/24 21:05 lisinopril Allergy Unknown Verified 03/26/24 21:05 oxycodone Allergy Unknown Verified 03/26/24 21:05 sulfamethoxazole Allergy Unknown Verified 03/26/24 21:05 [From Bactrim] trimethoprim [From Bactrim] Allergy Unknown Verified 03/26/24 21:05 TIDE LAUNDRY SOAP Allergy Severe Rash/Hives Uncoded 03/26/24 21:05 Physical Examination On exam patient is resting comfortably in bed in no acute distress. Patient is alert and oriented 3. On exam knee immobilizer is removed. Skin is intact. There is tenderness to palpation over the right knee. Limited motion secondary to fracture. Calf is soft and nontender to palpation. Sensation intact. Neurovascular status and circulatory status are intact. Results A CT report of the right knee dated 03/27/2024 shows: Comminuted distal right femur fracture with intra-articular extension involving the metaphysis extending to the joint. X-rays of the right femur dated 03/26/2024 reveal: 1. Curvilinear lucency of the distal femur metaphysis suggestive of fracture mention and provided history. The tibia appears intact. The proximal femur appears intact. 2. There is degeneration changes with joint space narrowing osteophyte formation of the knee. 3. Atherosclerosis of the arterial vasculature. - Labs Labs: Abnormal Lab Results - Last 24 Hours (Table) 03/26/24 03/26/24 03/27/24 Range/Units 20:20 20:20 02:09 RBC 4.20 L (4.30-5.90) m/uL Plt Count 146 L (150-450) k/uL Lymphocytes # 0.9 L (1.0-4.8) k/uL Sodium 135 L (137-145) mmol/L Potassium 3.4 L (3.5-5.1) mmol/L Chloride 95 L (98-107) mmol/L Carbon Dioxide 33 H (22-30) mmol/L BUN 99 H (9-20) mg/dL Creatinine 2.94 H (0.66-1.25) mg/dL Glucose 276 H (74-99) mg/dL Alkaline Phosphatase 171 H (38-126) U/L Ur Leukocyte Esterase Moderate H (Negative) Urine WBC 12 H (0-5) /hpf Urine Bacteria Few H (None) /hpf H & H 03/26/24 Range/Units 20:20 Hgb 13.1 (13.0-17.5) gm/dL Hct 39.7 (39.0-53.0) % Coagulation 03/26/24 Range/Units 20:20 INR 0.9 (<1.2) Result Diagrams: 03/26/24 20:20 03/26/24 20:20 Assessment and Plan (1) Closed fracture of right distal femur Current Visit: Yes Status: Acute Code(s): S72.401A - UNSP FRACTURE OF LOWER END OF RIGHT FEMUR, INIT FOR CLOS FX SNOMED Code(s): 365979452 (2) Fall Current Visit: Yes Status: Acute Code(s): W19.XXXA - UNSPECIFIED FALL, INITIAL ENCOUNTER SNOMED Code(s): 8476451 Plan: 1. Imaging is reviewed. Patient is to remain strictly nonweightbearing to the right lower extremity with a hinged knee brace locked in extension. Maintain brace at all times except for skin checks and hygiene. Patient is to use a walker when ambulating. 2. Rest, ice and elevate for swelling. 3. Patient has multiple comorbidities and nonoperative treatment is recommended at this time. We will continue to follow. Patient will likely need discharge to [facility].
[2024-03-27] MEDS ORDERED: METOCLOPRAMIDE 10 MG TAB PO PRN (16:12)
[2024-03-27] MEDS ORDERED: bisacodyL 10 MG SUPP RECTAL PRN (16:12)
[2024-03-27 17:30] LABS: Glucose,Whole Blood 243 mg/dL (70-110)
[2024-03-27] MEDS: INSULIN ASPART (NovoLOG) 100 UNIT/ML VIAL SQ SCH (17:54)
[2024-03-27] MEDS: SUCRALFATE 1 GM TAB PO SCH (17:58)
[2024-03-27 20:16] LABS: Glucose,Whole Blood 251 mg/dL (70-110)
[2024-03-27] MEDS: hydrALAZINE HCL 25 MG TAB PO SCH (21:35)
[2024-03-27] MEDS: FAMOTIDINE 20 MG TAB PO SCH (21:36)
[2024-03-27] MEDS: ATORVASTATIN 10 MG TAB PO SCH (21:36)
[2024-03-27] MEDS: PREGABALIN 100 MG CAP PO SCH (21:36)
[2024-03-27] MEDS: NYSTATIN 100,000 UNIT/GM POWD 15 GM TOPICAL SCH (21:36)
[2024-03-27] MEDS: IMATINIB MESYLATE 100 MG PO SCH (21:37)
[2024-03-28] MEDS: LEVOTHYROXINE 50 MCG TAB PO SCH (05:36)
[2024-03-28 07:46] LABS: Glucose,Whole Blood 247 mg/dL (70-110)
[2024-03-28] MEDS: INSULIN DETEMIR (LEVEMIR) 100 UNIT/ML SYR SQ SCH (08:28)
[2024-03-28] MEDS: allopurinoL 100 MG TAB PO SCH (08:29)
[2024-03-28] MEDS: amLODIPine 10 MG TAB PO SCH (08:29)
[2024-03-28] MEDS: DULoxetine HCL 60 MG CAPSULE.DR PO SCH (08:30)
[2024-03-28] MEDS: COLCHICINE 0.6 MG EACH PO SCH (08:30)
[2024-03-28] MEDS: FUROSEMIDE 40 MG TAB PO SCH (08:30)
[2024-03-28] MEDS: TAMSULOSIN 0.4 MG CAP.ER.24H PO SCH (08:31)
[2024-03-28] MEDS: POTASSIUM CHLORIDE ER 10 MEQ TAB.ER.PRT PO SCH (08:31)
[2024-03-28] MEDS: MAGNESIUM OXIDE 400 MG TAB PO SCH (08:31)
--- NOTE | 2024-03-28 11:40 | P.NPCON ---
History of Present Illness - Reason for Consult acute renal failure, chronic renal failure - History of Present Illness Reason for consultation: Acute kidney injury on chronic kidney disease History of present illness: Patient is a 73-year-old male seen in renal consultation for acute kidney injury on chronic kidney disease. Patient has chronic kidney disease stage IV with baseline creatinine near 2 secondary to diabetic kidney disease and chronic interstitial nephritis from long-term PPI use. Patient resides at an extended care facility. Patient states he was walking with the use of a walker but tripped and fell. He denies hitting his head or losing consciousness. Patient is noted to have right femur fracture and is being followed by orthopedic surgery. No surgeries are planned at this time. UA noted to be benign. Creatinine on admission was 2.94 and potassium 3.4. Potassium was replaced. He is maintained on oral Lasix 40 mg twice daily. Denies chest pain or shortness of breath. No edema at this time. Denies gross hematuria or dysuria. Denies use of nonsteroidals. Patient has longstanding history of diabetes. Denies fever or chills. No vomiting or diarrhea. Vital signs are stable. General: No acute distress. HEENT: Head exam is unremarkable. LUNGS: No audible rhonchi or wheezes. HEART: Rate and Rhythm are regular. ABDOMEN: Obese, nontender. EXTREMITITES: No edema. Past Medical History Past Medical History: Asthma, Cancer, Diabetes Mellitus, GERD/Reflux, Hyperlipidemia, Hypertension, Osteoarthritis (OA), Pneumonia, Renal Disease, Sleep Apnea/CPAP/BIPAP Additional Past Medical History / Comment(s): [place] leukemia recently diagnosed and started oral chemo 10/10/19, IDDM type II, pt states he occasionally has hypoglycemia during middle of night, arthritis bilateral hands and occasionally in bilateral knees, gout R foot, WILLAM with Cpap use. ckd. History of Any Multi-Drug Resistant Organisms: None Reported Past Surgical History: Cholecystectomy, Hernia Repair Additional Past Surgical History / Comment(s): 09/2019 bone marrow biopsy, incisional hernia, colonoscopy with benign polyps. Right cataract removal with IOL implant. PARATHYROIDECTOMY - July 2023 Past Anesthesia/Blood Transfusion Reactions: No Reported Reaction Past Psychological History: No Psychological Hx Reported Smoking Status: Former smoker Past Alcohol Use History: None Reported Past Drug Use History: None Reported - Past Family History Father Family Medical History: Diabetes Mellitus Additional Family Medical History / Comment(s): Father is 97 yrs old. Mother Family Medical History: Dementia Additional Family Medical History / Comment(s): Mother of dementia at the age of 85yrs. Medications and Allergies Home Medications Medication Instructions Recorded Confirmed Type Insulin Glargine [Lantus Vial] 18 unit SQ DAILY 12/02/20 03/26/24 History Colchicine [Colcrys] 0.6 mg PO DAILY 04/12/23 03/26/24 History Famotidine 20 mg PO BID 04/12/23 03/26/24 History Febuxostat [Uloric] 40 mg PO DAILY 04/12/23 03/26/24 History Simvastatin [Zocor] 10 mg PO HS 04/12/23 03/26/24 History Sucralfate [Carafate] 1 gm PO ACHS 04/12/23 03/26/24 History Acetaminophen Tab [Tylenol] 650 mg PO Q4-6H PRN 03/26/24 03/26/24 History Aranesp 60mcg/Ml 60 mg SQ Q14D 03/26/24 03/26/24 History Baclofen 5 mg PO TID PRN 03/26/24 03/26/24 History DULoxetine HCL [Cymbalta] 60 mg PO DAILY 03/26/24 03/26/24 History Furosemide [Lasix] 40 mg PO BID 03/26/24 03/26/24 History INSULIN LISPRO (humaLOG) [humaLOG] 9 units SQ AC-TID 03/26/24 03/26/24 History Imatinib Mesylate 300 mg PO HS 03/26/24 03/26/24 History Levothyroxine Sodium 50 mcg PO DAILY 03/26/24 03/26/24 History Lidocaine 4% Patch 1 patch TRANSDERM DAILY 03/26/24 03/26/24 History Magnesium Oxide [Magox 400] 400 mg PO DAILY 03/26/24 03/26/24 History Metoclopramide [Reglan] 10 mg PO Q8H PRN 03/26/24 03/26/24 History Potassium Chloride 10 meq PO DAILY 03/26/24 03/26/24 History Pregabalin [Lyrica] 100 mg PO BID 03/26/24 03/26/24 History Propylene Glycol [Systane Complete] 2 drop BOTH EYES Q5M PRN 03/26/24 03/26/24 History Tamsulosin [Flomax] 0.4 mg PO DAILY 03/26/24 03/26/24 History amLODIPine 10 mg PO DAILY 03/26/24 03/26/24 History bisacodyL [Dulcolax] 10 mg RECTAL DAILY PRN 03/26/24 03/26/24 History hydrALAZINE HCL [Apresoline] 25 mg PO TID 03/26/24 03/26/24 History hydrALAZINE HCL [Apresoline] 50 mg PO TID 03/26/24 03/26/24 History hydroCHLOROthiazide [Hydrodiuril] 25 mg PO DAILY 03/26/24 03/26/24 History rOPINIRole HCL [Requip] 1 mg PO HS 03/26/24 03/26/24 History Allergies Allergy/AdvReac Type Severity Reaction Status Date / Time codeine Allergy Unknown Verified 03/26/24 21:05 lisinopril Allergy Unknown Verified 03/26/24 21:05 oxycodone Allergy Unknown Verified 03/26/24 21:05 sulfamethoxazole Allergy Unknown Verified 03/26/24 21:05 [From Bactrim] trimethoprim [From Bactrim] Allergy Unknown Verified 03/26/24 21:05 TIDE LAUNDRY SOAP Allergy Severe Rash/Hives Uncoded 03/26/24 21:05 Physical Exam Vitals: Vital Signs Temp Pulse Resp BP Pulse Ox 03/28/24 07:16 98.5 F 85 18 127/69 92 L 03/28/24 02:00 98.9 F 96 16 152/75 91 L 03/27/24 20:00 98.7 F 86 20 144/68 96 03/27/24 13:47 98.6 F 87 17 131/68 94 L Intake and Output 03/27/24 03/28/24 03/28/24 22:59 06:59 14:59 Output Total 450 620 245 Balance -450 -620 -245 Output: Urine 450 620 Post Void Residual 245 Other: Voiding Method Urinal Urinal Diaper Diaper # Voids 3 Results - Lab Results Most recent lab results Calcium 9.1 mg/dL (8.4-10.2) 03/26/24 20:20 03/26/24 20:20 03/26/24 20:20 Assessment and Plan Plan: Assessment: 1. Acute kidney injury secondary to ATN secondary to diuresis. Creatinine 2.94 on admission. No proteinuria on UA. 2. Chronic kidney disease stage IV with baseline creatinine near 2 secondary to diabetic kidney disease and chronic incisional nephritis. 3. Hypokalemia from diuresis. Replaced. 4. Status post fall with right femur fracture. Orthopedic surgery following. No surgery is planned at this time. 5. Hypertension with chronic kidney disease. Stable. 6. Anemia of chronic kidney disease on Aranesp. Hemoglobin above goal. 7. Primary hyperparathyroidism status post parathyroidectomy. Calcium level normal at 9.1 this admission. Plan: Decrease Lasix to 40 mg once daily. Encouraged oral intake. Avoid nephrotoxins. Check bladder scan to rule out urinary retention. Follow-up echocardiogram. Avoid nephrotoxins. Thank you for the consultation. I will continue to follow the patient with you during his hospital stay.
[2024-03-28 11:42] LABS: Glucose,Whole Blood 249 mg/dL (70-110)
[2024-03-28 13:17] LABS: African American GFR (CKD) 25 (>60 ml/min/1.73 sqM); Anion Gap 7 mmol/L; Calcium 8.6 mg/dL (8.4-10.2); Carbon Dioxide 32 mmol/L (22-30); Chloride 99 mmol/L (98-107); Glucose 227 mg/dL (74-99); Non-African American GFR(CKD) 21 (>60 ml/min/1.73 sqM); Potassium 3.4 mmol/L (3.5-5.1); Sodium 138 mmol/L (137-145)
[2024-03-28 13:30] LABS: Basophils % (A) 0 %; Eosinophils # (A) 0.1 k/uL (0-0.7); Eosinophils % (A) 1 %; HCT 35.9 % (39.0-53.0); HGB 11.8 gm/dL (13.0-17.5); Lymphocytes # (A) 0.8 k/uL (1.0-4.8); Lymphocytes % (A) 9 %; MCHC 32.9 g/dL (31.0-37.0); MCV 94.1 fL (80.0-100.0); Mean Platelet Volume 9.7; Monocytes # (A) 1.1 k/uL (0-1.0); Monocytes % (A) 13 %; Neutrophils # (A) 6.8 k/uL (1.3-7.7); Neutrophils % (A) 75 %; Platelet Count 129 k/uL (150-450); RBC 3.82 m/uL (4.30-5.90); RDW 15.2 % (11.5-15.5); WBC 9.1 k/uL (3.8-10.6)
[2024-03-28 14:04] LABS: Blood Urea Nitrogen 101 mg/dL (9-20)
[2024-03-28] MEDS: POTASSIUM CHLORIDE ER 20 MEQ TAB.ER PO STA (15:42)
--- NOTE | 2024-03-28 17:23 | CA ---
Transthoracic Echo Report Name: Maulik Ascencio Age: 73 Gender: M : 1950 Exam Date: 03/28/2024 14:36 Exam Location: [place] [facility] Ht (in): 71 Wt (lb): 283 Ordering Physician: Dwayne Castellano MD Attending/Referring Phys: Nona BUENO [employer] Yen Silver RDCS Procedure CPT: Indications: Cardiac clearance Cardiac Hx: Technical Quality: Fair Contrast 1: Total Dose (mL): Contrast 2: Total Dose (mL): MEASUREMENTS (Male / Female) Normal Values 2D ECHO LV Diastolic Diameter PLAX 5.4 cm 4.2 - 5.9 / 3.9 - 5.3 cm LV Systolic Diameter PLAX 3.8 cm IVS Diastolic Thickness 1.3 cm 0.6 - 1.0 / 0.6 - 0.9 cm LVPW Diastolic Thickness 1.3 cm 0.6 - 1.0 / 0.6 - 0.9 cm LV Relative Wall Thickness 0.5 RV Internal Dim ED PLAX 4.1 cm LA Systolic Diameter LX 5.1 cm 3.0 - 4.0 / 2.7 - 3.8 cm M-MODE Aortic Root Diameter MM 3.6 cm AV Cusp Separation MM 2.5 cm DOPPLER AV Peak Velocity 168.1 cm/s AV Peak Gradient 11.3 mmHg MV Area PHT 3.2 cm??? Mitral E Point Velocity 56.8 cm/s Mitral A Point Velocity 91.6 cm/s Mitral E to A Ratio 0.6 MV Deceleration Time 238.2 ms TR Peak Velocity 280.8 cm/s TR Peak Gradient 31.5 mmHg Right Ventricular Systolic Press 36.5 mmHg FINDINGS Left Ventricle Left ventricular ejection fraction is estimated at 55-60 %. Left ventricular cavity size normal. Mild concentric left ventricular hypertrophy. Normal left ventricular wall motion. Right Ventricle Severe right ventricular dilatation. Mild pulmonary hypertension. Right Atrium Right atrium not well visualized. Left Atrium Moderately increased left atrial diameter. Mildly increased left atrial area. Mitral Valve Structurally normal mitral valve. No mitral stenosis, regurgitation or prolapse. Aortic Valve Aortic valve not well visualized. No aortic valve stenosis or regurgitation. Tricuspid Valve Structurally normal tricuspid valve. Mild tricuspid regurgitation. Pulmonic Valve Pulmonic valve not well visualized. Pericardium No pericardial or pleural effusion. Aorta Normal size aortic root and proximal ascending aorta. CONCLUSIONS Normal LV systolic function Previewed by: Dr. Hernesto Corbin MD (Electronically Signed) Final Date: 28 March 2024 17:22
[2024-03-28 17:24] LABS: Glucose,Whole Blood 225 mg/dL (70-110)
[2024-03-28 20:01] LABS: Glucose,Whole Blood 269 mg/dL (70-110)
--- NOTE | 2024-03-28 21:43 | P.CONS ---
History of Present Illness - Reason for Consult Consult date: 03/28/24 CML Requesting physician: Dwayne Castellano - Chief Complaint femur fracture - History of Present Illness Mr. Ascencio is a very pleasant patient of Dr. Gil, well-known to our practice, treated with Gleevec for CML diagnosed late 2018. He has had stable disease with negative BCR/ABL testing since that time, tolerates gleevec well. Patient has had a complicated medical course over the last year. 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 He required significant rehabilitation with some residual weakness. At the end of 2022 he had back surgery for severe, painful arthritis with prolonged hospitalization and rehabilitation process. He has been on and off Gleevec during this time. He has not been seen in the office since July 2023. Patient is currently admitted with a right femur fracture. He was going to be discharged to home from rehab but unfortunately, he was ambulating with a walker, this caught on the carpet and the patient fell. He was found to have a fracture of the right distal femur. He has been seen by Orthopedics, no plans for surgical intervention. When seen today patient is lethargic, not responding to questions very well, drifts off to sleep. is at the bedside providing information. Patient denied that he had any nausea or uncontrolled pain at this time. Review of Systems Patient was lethargic, history provided by the , patient did answer a few questions as stated in HPI Past Medical History Past Medical History: Asthma, Cancer, Diabetes Mellitus, GERD/Reflux, Hyperlipidemia, Hypertension, Osteoarthritis (OA), Pneumonia, Renal Disease, Sleep Apnea/CPAP/BIPAP Additional Past Medical History / Comment(s): [place] leukemia recently diagnosed and started oral chemo 10/10/19, IDDM type II, pt states he occasionally has hypoglycemia during middle of night, arthritis bilateral hands and occasionally in bilateral knees, gout R foot, WILLAM with Cpap use. ckd. History of Any Multi-Drug Resistant Organisms: None Reported Past Surgical History: Cholecystectomy, Hernia Repair Additional Past Surgical History / Comment(s): 09/2019 bone marrow biopsy, incisional hernia, colonoscopy with benign polyps. Right cataract removal with IOL implant. PARATHYROIDECTOMY - July 2023 Past Anesthesia/Blood Transfusion Reactions: No Reported Reaction Past Psychological History: No Psychological Hx Reported Smoking Status: Former smoker Past Alcohol Use History: None Reported Past Drug Use History: None Reported - Past Family History Father Family Medical History: Diabetes Mellitus Additional Family Medical History / Comment(s): Father is 97 yrs old. Mother Family Medical History: Dementia Additional Family Medical History / Comment(s): Mother of dementia at the age of 85yrs. Medications and Allergies Home Medications Medication Instructions Recorded Confirmed Type Insulin Glargine [Lantus Vial] 18 unit SQ DAILY 12/02/20 03/26/24 History Colchicine [Colcrys] 0.6 mg PO DAILY 04/12/23 03/26/24 History Famotidine 20 mg PO BID 04/12/23 03/26/24 History Febuxostat [Uloric] 40 mg PO DAILY 04/12/23 03/26/24 History Simvastatin [Zocor] 10 mg PO HS 04/12/23 03/26/24 History Sucralfate [Carafate] 1 gm PO ACHS 04/12/23 03/26/24 History Acetaminophen Tab [Tylenol] 650 mg PO Q4-6H PRN 03/26/24 03/26/24 History Aranesp 60mcg/Ml 60 mg SQ Q14D 03/26/24 03/26/24 History Baclofen 5 mg PO TID PRN 03/26/24 03/26/24 History DULoxetine HCL [Cymbalta] 60 mg PO DAILY 03/26/24 03/26/24 History Furosemide [Lasix] 40 mg PO BID 03/26/24 03/26/24 History INSULIN LISPRO (humaLOG) [humaLOG] 9 units SQ AC-TID 03/26/24 03/26/24 History Imatinib Mesylate 300 mg PO HS 03/26/24 03/26/24 History Levothyroxine Sodium 50 mcg PO DAILY 03/26/24 03/26/24 History Lidocaine 4% Patch 1 patch TRANSDERM DAILY 03/26/24 03/26/24 History Magnesium Oxide [Magox 400] 400 mg PO DAILY 03/26/24 03/26/24 History Metoclopramide [Reglan] 10 mg PO Q8H PRN 03/26/24 03/26/24 History Potassium Chloride 10 meq PO DAILY 03/26/24 03/26/24 History Pregabalin [Lyrica] 100 mg PO BID 03/26/24 03/26/24 History Propylene Glycol [Systane Complete] 2 drop BOTH EYES Q5M PRN 03/26/24 03/26/24 History Tamsulosin [Flomax] 0.4 mg PO DAILY 03/26/24 03/26/24 History amLODIPine 10 mg PO DAILY 03/26/24 03/26/24 History bisacodyL [Dulcolax] 10 mg RECTAL DAILY PRN 03/26/24 03/26/24 History hydrALAZINE HCL [Apresoline] 25 mg PO TID 03/26/24 03/26/24 History hydrALAZINE HCL [Apresoline] 50 mg PO TID 03/26/24 03/26/24 History hydroCHLOROthiazide [Hydrodiuril] 25 mg PO DAILY 03/26/24 03/26/24 History rOPINIRole HCL [Requip] 1 mg PO HS 03/26/24 03/26/24 History Allergies Allergy/AdvReac Type Severity Reaction Status Date / Time codeine Allergy Unknown Verified 03/26/24 21:05 lisinopril Allergy Unknown Verified 03/26/24 21:05 oxycodone Allergy Unknown Verified 03/26/24 21:05 sulfamethoxazole Allergy Unknown Verified 03/26/24 21:05 [From Bactrim] trimethoprim [From Bactrim] Allergy Unknown Verified 03/26/24 21:05 TIDE LAUNDRY SOAP Allergy Severe Rash/Hives Uncoded 03/26/24 21:05 Physical Exam Vitals: Vital Signs Temp Pulse Resp BP Pulse Ox 03/28/24 07:16 98.5 F 85 18 127/69 92 L 03/28/24 02:00 98.9 F 96 16 152/75 91 L 03/27/24 20:00 98.7 F 86 20 144/68 96 03/27/24 13:47 98.6 F 87 17 131/68 94 L Intake and Output 03/27/24 03/28/24 03/28/24 22:59 06:59 14:59 Output Total 450 620 Balance -450 -620 Output: Urine 450 620 Other: Voiding Method Urinal Diaper # Voids 3 - Constitutional General appearance: cooperative, morbidly obese, no acute distress - EENT Eyes: anicteric sclerae, EOMI ENT: hearing grossly normal - Neck Neck: no lymphadenopathy - Respiratory Respiratory: bilateral: CTA - Cardiovascular Rhythm: regular Heart sounds: normal: S1, S2 Abnormal Heart Sounds: no systolic murmur, no diastolic murmur, no rub, no S3 Gallop, no S4 Gallop, no click, no other leg Peripheral Edema: bilateral: Trace - Gastrointestinal General gastrointestinal: normal bowel sounds, soft - Integumentary Integumentary: pale - Neurologic Neurologic: CNII-XII intact - Musculoskeletal Musculoskeletal: generalized weakness - Psychiatric Lethargic, drifts off to sleep during conversation, he is oriented x 3 when he is awake and answering questions. Results CBC & Chem 7: 03/28/24 12:27 03/28/24 12:27 Labs: Abnormal Lab Results - Last 24 Hours (Table) 03/27/24 03/27/24 03/28/24 Range/Units 17:28 20:14 07:44 POC Glucose (mg/dL) 243 H 251 H 247 H (70-110) mg/dL Comments: X-ray reports reviewed Assessment and Plan (1) Femur fracture, right Current Visit: Yes Status: Acute Priority: High Code(s): S72.91XA - UNSP FRACTURE OF RIGHT FEMUR, INIT FOR CLOS FX SNOMED Code(s): 84478214 (2) Chronic myelocytic leukemia Current Visit: No Status: Chronic Priority: Medium Code(s): C92.10 - CHRONIC MYELOID LEUK, BCR/ABL-POSITIVE, NOT ACHIEVE REMIS SNOMED Code(s): 77761257 Plan: CML -Patient has been on Gleevec for many years for treatment of CML. He has done very well with the same. -Okay to hold Gleevec in the acute setting or if plans for surgery. -Pt has had a complicated hospital/rehab/LETTY course since , been on and off gleevec, no BCR ABL testing since last year. Repeat BCR-ABL testing. Femur fracture -Reviewed Orthopedic notes, no surgical intervention planned.
[2024-03-29 07:19] LABS: Glucose,Whole Blood 213 mg/dL (70-110)
[2024-03-29 09:42] LABS: BUN/Creat Ratio 35.07 Ratio (12.00-20.00); Blood Urea Nitrogen 94.7 mg/dL (9.0-27.0); Calcium 8.9 mg/dL (8.7-10.3); Carbon Dioxide 28.5 mmol/L (21.6-31.8); Chloride 99 mmol/L (96-109); Glucose 202 mg/dL (70-110); Magnesium 2.4 mg/dL (1.5-2.4); Sodium 141 mmol/L (135-145)
[2024-03-29] MEDS: FUROSEMIDE 40 MG TAB PO SCH (09:48)
[2024-03-29 11:29] LABS: Glucose,Whole Blood 193 mg/dL (70-110)
--- NOTE | 2024-03-29 11:33 | P.PN ---
Subjective Patient is seen in follow-up for acute kidney injury on chronic kidney disease. Renal function stable. Admits to good urine output. No vomiting or diarrhea. Vital signs are stable. General: No acute distress. HEENT: Head exam is unremarkable. LUNGS: No audible rhonchi or wheezes. HEART: Rate and Rhythm are regular. ABDOMEN: Obese, nontender. EXTREMITITES: No edema. Objective - Vital Signs Vital signs: Vital Signs Temp 97.6 F 03/29/24 07:06 Pulse 92 03/29/24 07:06 Resp 16 03/29/24 07:06 BP 120/68 03/29/24 07:06 Pulse Ox 91 L 03/29/24 07:06 FiO2 Intake & Output 03/28/24 03/29/24 03/29/24 18:59 06:59 18:59 Intake Total 300 590 Output Total 1045 650 Balance -745 -60 Intake: Oral 300 590 Output: Urine 800 650 Post Void Residual 245 Other: Voiding Method Urinal Urinal Urinal Diaper Diaper Diaper # Voids 1 1 # Bowel Movements 2 1 - Labs CBC & Chem 7: 03/28/24 12:27 03/29/24 04:47 Labs: Abnormal Lab Results - Last 24 Hours (Table) 03/28/24 03/28/24 03/28/24 Range/Units 11:41 12:27 12:27 RBC 3.82 L (4.30-5.90) m/uL Hgb 11.8 L (13.0-17.5) gm/dL Hct 35.9 L (39.0-53.0) % Plt Count 129 L (150-450) k/uL Lymphocytes # 0.8 L (1.0-4.8) k/uL Monocytes # 1.1 H (0-1.0) k/uL Potassium 3.4 L (3.5-5.1) mmol/L Carbon Dioxide 32 H (22-30) mmol/L Anion Gap (4.00-12.00) mmol/L BUN 101 H* (9-20) mg/dL Creatinine 2.79 H (0.66-1.25) mg/dL Est GFR (CKD-EPI) (>=60) BUN/Creatinine Ratio (12.00-20.00) Ratio Glucose 227 H (74-99) mg/dL POC Glucose (mg/dL) 249 H (70-110) mg/dL 03/28/24 03/28/24 03/29/24 Range/Units 17:13 19:59 04:47 RBC (4.30-5.90) m/uL Hgb (13.0-17.5) gm/dL Hct (39.0-53.0) % Plt Count (150-450) k/uL Lymphocytes # (1.0-4.8) k/uL Monocytes # (0-1.0) k/uL Potassium (3.5-5.1) mmol/L Carbon Dioxide (22-30) mmol/L Anion Gap 13.50 H (4.00-12.00) mmol/L BUN 94.7 H (9-20) mg/dL Creatinine 2.7 H (0.66-1.25) mg/dL Est GFR (CKD-EPI) 24 L (>=60) BUN/Creatinine Ratio 35.07 H (12.00-20.00) Ratio Glucose 202 H (74-99) mg/dL POC Glucose (mg/dL) 225 H 269 H (70-110) mg/dL 03/29/24 03/29/24 Range/Units 07:08 11:24 RBC (4.30-5.90) m/uL Hgb (13.0-17.5) gm/dL Hct (39.0-53.0) % Plt Count (150-450) k/uL Lymphocytes # (1.0-4.8) k/uL Monocytes # (0-1.0) k/uL Potassium (3.5-5.1) mmol/L Carbon Dioxide (22-30) mmol/L Anion Gap (4.00-12.00) mmol/L BUN (9-20) mg/dL Creatinine (0.66-1.25) mg/dL Est GFR (CKD-EPI) (>=60) BUN/Creatinine Ratio (12.00-20.00) Ratio Glucose (74-99) mg/dL POC Glucose (mg/dL) 213 H 193 H (70-110) mg/dL Assessment and Plan Plan: Assessment: 1. Acute kidney injury secondary to ATN secondary to diuresis. Creatinine 2.94 on admission - 2.7 today. No proteinuria on UA. 2. Chronic kidney disease stage IV with baseline creatinine near 2 secondary to diabetic kidney disease and chronic incisional nephritis. 3. Hypokalemia from diuresis. Replaced. Improved. 4. Status post fall with right femur fracture. Orthopedic surgery following. No surgery is planned at this time. 5. Hypertension with chronic kidney disease. Stable. 6. Anemia of chronic kidney disease on Aranesp. Hemoglobin above goal. Aranesp discontinued. 7. Primary hyperparathyroidism status post parathyroidectomy. Calcium level normal. Plan: Maintain Lasix with potassium supplementation. Encouraged oral intake. Avoid nephrotoxins. Preserved EF noted on echocardiogram. Check renal ultrasound. Encouraged oral intake.
--- NOTE | 2024-03-29 12:37 | P.PN ---
Subjective Progress Note Date: 03/29/24 Principal diagnosis: Right femur fracture Patient states they did well over night. Patient states they have right knee pain with movement of the right leg. They have been resting in bed and non weight bearing. They have been wearing a knee immobilizer on their right leg. A hinged knee brace was ordered 03/28/2024 and will be locked in full extension. Objective - Vital Signs Vital signs: Vital Signs Temp 97.4 F L 03/29/24 11:19 Pulse 91 03/29/24 11:19 Resp 18 03/29/24 11:19 BP 99/45 03/29/24 11:19 Pulse Ox 95 03/29/24 11:19 FiO2 Intake & Output 03/28/24 03/29/24 03/29/24 18:59 06:59 18:59 Intake Total 300 590 Output Total 1045 650 Balance -745 -60 Intake: Oral 300 590 Output: Urine 800 650 Post Void Residual 245 Other: Voiding Method Urinal Urinal Urinal Diaper Diaper Diaper # Voids 1 1 # Bowel Movements 2 1 - Exam Patient was resting comfortably in bed in no acute distress today. A knee immobilizer was removed from the right leg and the skin was free of scars, lesions, ecchymosis or deformity. The right thigh and right calf were soft, with mild swelling. Neurovascular status of bilateral lower extremities was intact. The knee immobilizer was placed back on the right leg. - Labs CBC & Chem 7: 03/28/24 12:27 03/29/24 04:47 Labs: Abnormal Lab Results - Last 24 Hours (Table) 03/28/24 03/28/24 03/28/24 Range/Units 12:27 12:27 17:13 RBC 3.82 L (4.30-5.90) m/uL Hgb 11.8 L (13.0-17.5) gm/dL Hct 35.9 L (39.0-53.0) % Plt Count 129 L (150-450) k/uL Lymphocytes # 0.8 L (1.0-4.8) k/uL Monocytes # 1.1 H (0-1.0) k/uL Potassium 3.4 L (3.5-5.1) mmol/L Carbon Dioxide 32 H (22-30) mmol/L Anion Gap (4.00-12.00) mmol/L BUN 101 H* (9-20) mg/dL Creatinine 2.79 H (0.66-1.25) mg/dL Est GFR (CKD-EPI) (>=60) BUN/Creatinine Ratio (12.00-20.00) Ratio Glucose 227 H (74-99) mg/dL POC Glucose (mg/dL) 225 H (70-110) mg/dL 03/28/24 03/29/24 03/29/24 Range/Units 19:59 04:47 07:08 RBC (4.30-5.90) m/uL Hgb (13.0-17.5) gm/dL Hct (39.0-53.0) % Plt Count (150-450) k/uL Lymphocytes # (1.0-4.8) k/uL Monocytes # (0-1.0) k/uL Potassium (3.5-5.1) mmol/L Carbon Dioxide (22-30) mmol/L Anion Gap 13.50 H (4.00-12.00) mmol/L BUN 94.7 H (9-20) mg/dL Creatinine 2.7 H (0.66-1.25) mg/dL Est GFR (CKD-EPI) 24 L (>=60) BUN/Creatinine Ratio 35.07 H (12.00-20.00) Ratio Glucose 202 H (74-99) mg/dL POC Glucose (mg/dL) 269 H 213 H (70-110) mg/dL 03/29/24 Range/Units 11:24 RBC (4.30-5.90) m/uL Hgb (13.0-17.5) gm/dL Hct (39.0-53.0) % Plt Count (150-450) k/uL Lymphocytes # (1.0-4.8) k/uL Monocytes # (0-1.0) k/uL Potassium (3.5-5.1) mmol/L Carbon Dioxide (22-30) mmol/L Anion Gap (4.00-12.00) mmol/L BUN (9-20) mg/dL Creatinine (0.66-1.25) mg/dL Est GFR (CKD-EPI) (>=60) BUN/Creatinine Ratio (12.00-20.00) Ratio Glucose (74-99) mg/dL POC Glucose (mg/dL) 193 H (70-110) mg/dL Assessment and Plan Assessment: Right femur fracture (1) Closed fracture of right distal femur Current Visit: Yes Status: Acute Code(s): S72.401A - UNSP FRACTURE OF LOWER END OF RIGHT FEMUR, INIT FOR CLOS FX SNOMED Code(s): 882218279 (2) Femur fracture, right Current Visit: Yes Status: Acute Priority: High Code(s): S72.91XA - UNSP FRACTURE OF RIGHT FEMUR, INIT FOR CLOS FX SNOMED Code(s): 73779604 Plan: 1. Imaging is reviewed. Patient is to remain strictly nonweightbearing to the right lower extremity with a hinged knee brace locked in extension. Maintain brace at all times except for skin checks and hygiene. Patient is to use a walker when ambulating. 2. Rest, ice and elevate for swelling. 3. Patient has multiple comorbidities and nonoperative treatment is recommended at this time. We will continue to follow. Patient will likely need discharge to ECF.
[2024-03-29] MEDS: ENOXAPARIN 30 MG/0.3 ML SYRINGE SQ SCH (12:45)
--- NOTE | 2024-03-29 14:00 | US ---
EXAMINATION TYPE: US kidneys/renal and bladder DATE OF EXAM: 03/29/2024 COMPARISON: 02/02/22 CLINICAL INDICATION: Male, 73 years old with history of wendi; WENDI EXAM MEASUREMENTS: Right Kidney: not visualized Left Kidney: not visualized Right Kidney: Obscured by overlying bowel gas Left Kidney: Obscured by overlying bowel gas, there however is a 17.5x10.5x12cm anechoic area at the left flank. Unable to discern origin. It does not appear to be renal tissue adjacent to this area son ographically Bladder: not visualized with confidence Bilateral Jets seen: No There is no evidence for hydronephrosis at this point in time. No nephrolithiasis is seen. No edgard s are identified. exam extremely limited by bowel gas, large body habitus, and limited patient mobility IMPRESSION: Limited exam No evidence for obstructive uropathy. Anechoic left upper abdominal cyst possibly relati ng to large renal cysts. Consider cross-sectional imaging for complete evaluation.
--- NOTE | 2024-03-29 15:42 | P.PN ---
Subjective Progress Note Date: 03/29/24 Principal diagnosis: CML, fall with femur fracture In f/u today pt cont to be lethargic, slow to respond, falling asleep during conversation. No documented fevers, N, V, pt has poor oral intake at this time, very weak. Objective - Vital Signs Vital signs: Vital Signs Temp 97.4 F L 03/29/24 11:19 Pulse 91 03/29/24 11:19 Resp 18 03/29/24 11:19 BP 99/45 03/29/24 11:19 Pulse Ox 95 03/29/24 11:19 FiO2 Intake & Output 03/28/24 03/29/24 03/29/24 18:59 06:59 18:59 Intake Total 300 590 Output Total 1045 650 Balance -745 -60 Intake: Oral 300 590 Output: Urine 800 650 Post Void Residual 245 Other: Voiding Method Urinal Urinal Urinal Diaper Diaper Diaper # Voids 1 1 # Bowel Movements 2 1 - Constitutional General appearance: Present: cooperative, no acute distress, obese - EENT EENT Comment(s): very dry mucus membranes Eyes: Present: anicteric sclerae, EOMI ENT: Present: hearing grossly normal - Respiratory Respiratory: bilateral: diminished (weak inspiratory effort) - Gastrointestinal General gastrointestinal: Present: soft - Neurologic Neurologic: Present: CNII-XII intact (grossly) - Musculoskeletal Musculoskeletal: Present: generalized weakness - Psychiatric Psychiatric Comment(s): Arousable to voice, oriented to self, place, off on time - Labs CBC & Chem 7: 03/28/24 12:27 03/29/24 04:47 Labs: Abnormal Lab Results - Last 24 Hours (Table) 03/28/24 03/28/24 03/29/24 Range/Units 17:13 19:59 04:47 Anion Gap 13.50 H (4.00-12.00) mmol/L BUN 94.7 H (9.0-27.0) mg/dL Creatinine 2.7 H (0.6-1.5) mg/dL Est GFR (CKD-EPI) 24 L (>=60) BUN/Creatinine Ratio 35.07 H (12.00-20.00) Ratio Glucose 202 H (70-110) mg/dL POC Glucose (mg/dL) 225 H 269 H (70-110) mg/dL 03/29/24 03/29/24 Range/Units 07:08 11:24 Anion Gap (4.00-12.00) mmol/L BUN (9.0-27.0) mg/dL Creatinine (0.6-1.5) mg/dL Est GFR (CKD-EPI) (>=60) BUN/Creatinine Ratio (12.00-20.00) Ratio Glucose (70-110) mg/dL POC Glucose (mg/dL) 213 H 193 H (70-110) mg/dL Assessment and Plan (1) Femur fracture, right Current Visit: Yes Status: Acute Priority: High Code(s): S72.91XA - UNSP FRACTURE OF RIGHT FEMUR, INIT FOR CLOS FX SNOMED Code(s): 78329911 (2) Chronic myelocytic leukemia Current Visit: No Status: Chronic Priority: Medium Code(s): C92.10 - CHRONIC MYELOID LEUK, BCR/ABL-POSITIVE, NOT ACHIEVE REMIS SNOMED Code(s): 31011787 Plan: CML -Patient has been on Gleevec for many years for treatment of CML. He has done very well with the same. -Okay to hold Gleevec in the acute setting or if plans for surgery. -Pt has had a complicated hospital/rehab/LETT[facility] course since , been on and o ff gleevec a few times. No BCR ABL testing since last year. Repeat BCR-ABL testing. Femur fracture -Reviewed Orthopedic notes, no surgical intervention planned. -Plans for non-wt bearing. Recommend DVT prophylaxis. Lovenox 30mg daily ordered. Recommend pt cont on the same in rehab until he is moving around better
[2024-03-29 17:01] LABS: Glucose,Whole Blood 212 mg/dL (70-110)
[2024-03-29 20:01] LABS: Glucose,Whole Blood 237 mg/dL (70-110)
[2024-03-29] MEDS: FAMOTIDINE 20 MG TAB PO SCH (20:42)
--- NOTE | 2024-03-30 00:40 | HP ---
HISTORY AND PHYSICAL CHIEF COMPLAINT: Fall with fracture of the right knee. HISTORY OF PRESENT ILLNESS: This is another admission for this 73-year-old unfortunate white male. He has a long- standing history of diabetes mellitus, which has been fairly well controlled. He also is being treated for the last several years for CML. He recently underwent a procedure on his low back in [place]. After the procedure, he was found to be quite weak in the lower extremities with spastic paraparesis. Since then, he has been in [facility] with efforts to be able to return home without success. He recently fell and injured his right knee and was found to have a fracture of the distal femur and was admitted. REVIEW OF SYSTEMS: He has been lethargic. He does not have any focal neurologic deficits. He does not have shortness of breath or chest pain. Past medical history, family history and personal and social histories can be found in detail in his prior hospital and long term records. His blood sugars have been fairly well controlled. PHYSICAL EXAMINATION: VITAL SIGNS: Normal. HEAD, EARS, EYES, NOSE, MOUTH, AND THROAT: Normal. CHEST: Clear. CARDIAC: Demonstrates sinus rhythm. ABDOMEN: Protuberant, soft, and nontender. EXTREMITIES: Find the right knee to be splinted in a brace. NEUROLOGICAL: He is intact, but lethargic. DIAGNOSES: He is admitted to the hospital with: 1. Distal right femur fracture. 2. Spastic paraparesis. 3. Type 2 diabetes mellitus. 4. History of congestive heart failure. 5. CML. 6. Lethargy. PLAN: 1. Bedrest. 2. Consult with Orthopedic Surgery. 3. Preop. 4. Correct his hypokalemia. MMODL / IJN: [id number] /
--- NOTE | 2024-03-30 01:57 | PN ---
PROGRESS NOTE DATE OF SERVICE: 03/28/2024 CHIEF COMPLAINT: Fracture of the right femur. HISTORY OF PRESENT ILLNESS: This gentleman is stable and it looks as though surgery is not recommending surgical management. He certainly would be at an extreme risk. PHYSICAL EXAMINATION: CHEST: Clear. CARDIAC: Normal. ABDOMEN: Protuberant. He is somewhat lethargic. IMPRESSION: 1. Fracture of the right distal femur. 2. History of diabetes. 3. Depression. 4. Spastic paraparesis. 5. Renal failure. PLAN: Probably manage conservatively and likely send back to the [facility] soon. MMODL / IJN: [id number] /
--- NOTE | 2024-03-30 01:57 | PN ---
PROGRESS NOTE DATE OF SERVICE: 03/27/2024 CHIEF COMPLAINT: Fracture of the right distal femur. HISTORY OF PRESENT ILLNESS: This gentleman is fairly stable. He is somewhat lethargic. He is being evaluated by Orthopedic surgery and being prepared for possible operation. PHYSICAL EXAMINATION: VITAL SIGNS: Normal. CHEST: Clear. CARDIAC: Normal. ABDOMEN: Protuberant. EXTREMITIES: Right leg is in an immobilizer. LABORATORY DATA: His potassium is low. IMPRESSION: 1. Fracture of the right distal femur. 2. Hypokalemia. 3. CML. 4. Morbid obesity. 5. Diabetes. 6. Spastic paraparesis. PLAN: 1. Continue workup and await for any recommendations from Orthopedics. 2. Correct hypokalemia. MMODL / IJN: [id number] /
--- NOTE | 2024-03-30 02:10 | PN ---
PROGRESS NOTE DATE OF SERVICE: 03/29/2024 CHIEF COMPLAINT: Fracture of the right femur. HISTORY OF PRESENT ILLNESS: This gentleman is doing reasonably well, but his kidney function seems to be deteriorating. Blood sugars are also slightly elevated. BUN is 101 with a creatinine of 2.79. Hemoglobin is 11.8. PHYSICAL EXAMINATION: VITAL SIGNS: Normal. GENERAL: He is lethargic. HEENT: Head, ears, eyes, nose and mouth are normal. CHEST: Breath sounds are heard bilaterally. CARDIAC: Normal. ABDOMEN: Soft, nontender, and protuberant. IMPRESSION: 1. Fracture of the right femur. 2. Diabetes. 3. Congestive heart failure. 4. Renal failure. PLAN: Await any further recommendations from Nephrology, but otherwise he could return to the detention. MMODL / IJN: [id number] /
[2024-03-30 07:00] LABS: Glucose,Whole Blood 199 mg/dL (70-110)
--- NOTE | 2024-03-30 11:36 | P.PN ---
Subjective Patient is seen in follow-up for acute kidney injury on chronic kidney disease. Renal function stable as of yesterday. Admits to good urine output. No vomiting or diarrhea. Vital signs are stable. General: No acute distress. HEENT: Head exam is unremarkable. LUNGS: No audible rhonchi or wheezes. HEART: Rate and Rhythm are regular. ABDOMEN: Obese, nontender. EXTREMITITES: No edema. Objective - Vital Signs Vital signs: Vital Signs Temp 97.9 F 03/30/24 07:01 Pulse 84 03/30/24 07:01 Resp 20 03/30/24 07:01 BP 145/70 03/30/24 07:01 Pulse Ox 96 03/30/24 07:01 FiO2 Intake & Output 03/29/24 03/30/24 03/30/24 18:59 06:59 18:59 Output Total 1250 550 Balance -1250 -550 Output: Urine 1250 550 Other: Voiding Method Urinal Urinal Urinal Diaper Diaper Diaper # Voids 6 1 # Bowel Movements 1 1 - Labs CBC & Chem 7: 03/28/24 12:27 03/29/24 04:47 Labs: Abnormal Lab Results - Last 24 Hours (Table) 03/29/24 03/29/24 03/30/24 Range/Units 17:00 19:59 06:59 POC Glucose (mg/dL) 212 H 237 H 199 H (70-110) mg/dL Microbiology - Last 24 Hours (Table) 03/28/24 17:35 Urine Culture - Preliminary Urine,Voided Gram Neg Bacilli Assessment and Plan Plan: Assessment: 1. Acute kidney injury secondary to ATN secondary to diuresis. Creatinine 2.94 on admission - 2.7 yesterday. No proteinuria on UA. No hydronephrosis noted on kidney ultrasound. 2. Chronic kidney disease stage IV with baseline creatinine near 2 secondary to diabetic kidney disease and chronic interstitial nephritis. 3. Hypokalemia from diuresis. Replaced. Improved. 4. Status post fall with right femur fracture. Orthopedic surgery following. No surgery is planned at this time. 5. Hypertension with chronic kidney disease. Stable. 6. Anemia of chronic kidney disease on Aranesp. Hemoglobin above goal. Aranesp discontinued. 7. Primary hyperparathyroidism status post parathyroidectomy. Calcium level normal. 8. Gram-negative UTI. Plan: Maintain Lasix with potassium supplementation. Encouraged oral intake. Avoid nephrotoxins. Preserved EF noted on echocardiogram. Add Rocephin. Encouraged oral intake.
[2024-03-30 11:49] LABS: Glucose,Whole Blood 207 mg/dL (70-110)
[2024-03-30 17:09] LABS: Glucose,Whole Blood 148 mg/dL (70-110)
--- NOTE | 2024-03-30 17:14 | P.PN ---
Subjective Progress Note Date: 03/30/24 Principal diagnosis: Right femur fracture Patient states the are doing well. No acute events overnight. Continues to have pain in the right leg with movement. Objective - Vital Signs Vital signs: Vital Signs Temp 98.1 F 03/30/24 13:30 Pulse 92 03/30/24 13:30 Resp 16 03/30/24 13:30 BP 145/77 03/30/24 13:30 Pulse Ox 96 03/30/24 13:30 FiO2 Intake & Output 03/29/24 03/30/24 03/30/24 18:59 06:59 18:59 Output Total 1250 550 Balance -1250 -550 Output: Urine 1250 550 Other: Voiding Method Urinal Urinal Urinal Diaper Diaper Diaper # Voids 6 1 # Bowel Movements 1 1 1 - Exam Patient was resting comfortably in bed in no acute distress today. A knee hinged knee brace locked in full extension was in place on the right leg. It was removed, the skin was free of scars, lesions, ecchymosis or deformity, the brace was adjusted and reapplied. Neurovascular status of bilateral lower extremities was intact. - Labs CBC & Chem 7: 03/28/24 12:27 03/29/24 04:47 Labs: Abnormal Lab Results - Last 24 Hours (Table) 03/29/24 03/30/24 03/30/24 Range/Units 19:59 06:59 11:48 POC Glucose (mg/dL) 237 H 199 H 207 H (70-110) mg/dL 03/30/24 Range/Units 17:07 POC Glucose (mg/dL) 148 H (70-110) mg/dL Microbiology - Last 24 Hours (Table) 03/28/24 17:35 Urine Culture - Preliminary Urine,Voided Gram Neg Bacilli Assessment and Plan Assessment: Right femur fracture (1) Closed fracture of right distal femur Current Visit: Yes Status: Acute Code(s): S72.401A - UNSP FRACTURE OF LOWER END OF RIGHT FEMUR, INIT FOR CLOS FX SNOMED Code(s): 725726373 (2) Femur fracture, right Current Visit: Yes Status: Acute Priority: High Code(s): S72.91XA - UNSP FRACTURE OF RIGHT FEMUR, INIT FOR CLOS FX SNOMED Code(s): 68339981 Plan: Continue treatment as outlined. Patient is okay to discharge from an orthopedic standpoint. He should follow-up in the office for repeat x-rays in 1 week. We will sign off at this time. Please call our office with questions or concerns.
--- NOTE | 2024-03-30 17:21 | CDI ---
Documentation Clarification Form Date: 03/30/2024 05:03:01 PM From: Meena Vasquez RN CCDS Phone: [phone] Admit Date: 03/27/2024 03:41:00 AM Patient Name: Maulik Ascencio Visit Number: [id number] Discharge Date: ATTENTION: The Clinical Documentation Specialists (CDI) and [facility] Coding Staff appreciate your assistance in clarifying documentation. Please respond to the clarification below the line at the bottom and electronically sign. The CDI & [facility] Coding staff will review the response and follow-up if needed. Please note: Queries are made part of the Legal Health Record. If you have any questions, please contact the author of this message via ITS. Dr. Dwayne Castellano Your patient has the documented diagnosis of unspecified CHF 03/29, Medicine note which may lack sufficient clinical evidence/support in the medical record. Additional clarification is requested. History/Risk Factors: 73-year-old male presents to the ED with complaint of right femur fracture fell at rehab facility. Medical History: HTN, CKD IV and Heart Failure. 03/28, HP Clinical Indicators: VS/Pulse OX, 03/26: B/P 142/72; HR 88; Temp 97.6F Oral; RR 18; SpO2 97% room air BNP, 03/27: 440 Echocardiogram Results, 03/28: EF 55-60% Normal LV systolic function. Chest X Ray, 03/26: No acute cardiopulmonary disease/process Treatment: 03/28 Lasix 40mg PO bid DC 03/28; 03/29 Lasix 40mg PO daily In your professional opinion, can you please clarify the acuity and type of CHF if known? [ ] Acute on Chronic Diastolic Heart Failure (preserved EF) as evidenced by: [ ] Chronic Diastolic Heart Failure (preserved EF) [ ] Other, please specify [ ] Unable to determine (Template Last Revised: November 2020) WILVERD
[2024-03-30 20:32] LABS: Glucose,Whole Blood 197 mg/dL (70-110)
[2024-03-31 07:33] LABS: Glucose,Whole Blood 175 mg/dL (70-110)
[2024-03-31] MEDS: INSULIN DETEMIR (LEVEMIR) 100 UNIT/ML SYR SQ SCH (09:11)
--- NOTE | 2024-03-31 11:47 | P.PN ---
Subjective Patient is seen in follow-up for acute kidney injury on chronic kidney disease. Renal function stable with creatinine 2.7 dated March 29, 2024. Admits to good urine output. No vomiting or diarrhea. Vital signs are stable. General: No acute distress. HEENT: Head exam is unremarkable. LUNGS: No audible rhonchi or wheezes. HEART: Rate and Rhythm are regular. ABDOMEN: Obese, nontender. EXTREMITITES: No edema. Objective - Vital Signs Vital signs: Vital Signs Temp 97.9 F 03/31/24 07:57 Pulse 90 03/31/24 07:57 Resp 18 03/31/24 07:57 BP 126/73 03/31/24 07:57 Pulse Ox 96 03/31/24 07:57 FiO2 Intake & Output 03/30/24 03/31/24 03/31/24 18:59 06:59 18:59 Intake Total 590 Output Total 550 400 500 Balance -550 190 -500 Weight 117.5 kg Intake: Oral 590 Output: Urine 550 400 500 Other: Voiding Method Urinal Urinal Diaper Diaper Diaper Incontinent # Voids 1 3 # Bowel Movements 1 - Labs CBC & Chem 7: 03/28/24 12:27 03/29/24 04:47 Labs: Abnormal Lab Results - Last 24 Hours (Table) 03/30/24 03/30/24 03/30/24 Range/Units 11:48 17:07 20:31 POC Glucose (mg/dL) 207 H 148 H 197 H (70-110) mg/dL 03/31/24 Range/Units 07:11 POC Glucose (mg/dL) 175 H (70-110) mg/dL Microbiology - Last 24 Hours (Table) 03/28/24 17:35 Urine Culture - Preliminary Urine,Voided Gram Neg Bacilli Assessment and Plan Plan: Assessment: 1. Acute kidney injury secondary to ATN secondary to diuresis. Creatinine 2.94 on admission - 2.7 dated March 29, 2024. No proteinuria on UA. No hydronephrosis noted on kidney ultrasound. 2. Chronic kidney disease stage IV with baseline creatinine near 2 secondary to diabetic kidney disease and chronic interstitial nephritis. 3. Hypokalemia from diuresis. Replaced. Improved. 4. Status post fall with right femur fracture. Orthopedic surgery following. No surgery is planned at this time. 5. Hypertension with chronic kidney disease. Stable. 6. Anemia of chronic kidney disease on Aranesp. Hemoglobin above goal. Aranesp discontinued. 7. Primary hyperparathyroidism status post parathyroidectomy. Calcium level normal. 8. Gram-negative UTI. On antibiotics. Plan: Maintain Lasix with potassium supplementation. Will hold Lasix if GFR worsens. Encouraged oral intake. Avoid nephrotoxins. Preserved EF noted on echocardiogram. Encouraged oral intake.
[2024-03-31 12:33] LABS: Glucose,Whole Blood 176 mg/dL (70-110)
[2024-03-31 13:21] LABS: BUN/Creat Ratio 42.09 Ratio (12.00-20.00); Blood Urea Nitrogen 96.8 mg/dL (9.0-27.0); Carbon Dioxide 27.9 mmol/L (21.6-31.8); Chloride 104 mmol/L (96-109); Glucose 175 mg/dL (70-110); Magnesium 2.4 mg/dL (1.5-2.4); Potassium 3.9 mmol/L (3.5-5.5); Sodium 146 mmol/L (135-145)
[2024-03-31] MEDS: LEVOFLOXACIN 750MG-D5W PMX 750 MG in DEXTROSE/WATER 1 150ML.BAG IVPB SCH (17:15)
[2024-03-31 17:27] LABS: Glucose,Whole Blood 180 mg/dL (70-110)
[2024-03-31 20:16] LABS: Glucose,Whole Blood 257 mg/dL (70-110)
[2024-04-01 07:40] LABS: Glucose,Whole Blood 130 mg/dL (70-110)
[2024-04-01 07:40] LABS: African American GFR (CKD) 36 (>60 ml/min/1.73 sqM); Anion Gap 4 mmol/L; Blood Urea Nitrogen 98 mg/dL (9-20); Calcium 8.7 mg/dL (8.4-10.2); Carbon Dioxide 30 mmol/L (22-30); Chloride 105 mmol/L (98-107); Glucose 123 mg/dL (74-99); Magnesium 2.3 mg/dL (1.6-2.3); Non-African American GFR(CKD) 31 (>60 ml/min/1.73 sqM); Potassium 4.1 mmol/L (3.5-5.1); Sodium 139 mmol/L (137-145)
--- NOTE | 2024-04-01 11:39 | P.PN ---
Subjective Patient is seen in follow-up for acute kidney injury on chronic kidney disease. Renal function improved. Admits to good urine output. No vomiting or diarrhea. Vital signs are stable. General: No acute distress. HEENT: Head exam is unremarkable. LUNGS: No audible rhonchi or wheezes. HEART: Rate and Rhythm are regular. ABDOMEN: Obese, nontender. EXTREMITITES: No edema. Objective - Vital Signs Vital signs: Vital Signs Temp 98.3 F 04/01/24 08:00 Pulse 84 04/01/24 08:00 Resp 16 04/01/24 08:00 BP 155/73 04/01/24 08:00 Pulse Ox 96 04/01/24 08:00 FiO2 Intake & Output 03/31/24 04/01/24 04/01/24 18:59 06:59 18:59 Intake Total 440 Output Total 500 300 Balance -60 -300 Intake: Intake, IV Titration 200 Amount Levofloxacin 750Mg-D5w 150 Pmx 750 mg In Dextrose/ Water 1 150ml.bag @ 100 mls/hr IVPB Q24H [facility] Rx#: [id number] cefTRIAXone 1 gm In 50 Sodium Chloride 0.9% 50 ml @ 100 mls/hr IVPB Q24HR [facility] Rx#:[id number] Oral 240 Output: Urine 500 300 Other: Voiding Method Diaper Diaper Incontinent Incontinent # Voids 1 1 1 # Bowel Movements 1 1 - Labs CBC & Chem 7: 03/28/24 12:27 04/01/24 06:36 Labs: Abnormal Lab Results - Last 24 Hours (Table) 03/31/24 03/31/24 03/31/24 Range/Units 05:55 12:21 17:17 Sodium 146 H (135-145) mmol/L Anion Gap 14.10 H (4.00-12.00) mmol/L BUN 96.8 H (9.0-27.0) mg/dL Creatinine 2.3 H (0.6-1.5) mg/dL Est GFR (CKD-EPI) 29 L (>=60) BUN/Creatinine Ratio 42.09 H (12.00-20.00) Ratio Glucose 175 H (70-110) mg/dL POC Glucose (mg/dL) 176 H 180 H (70-110) mg/dL 03/31/24 04/01/24 04/01/24 Range/Units 20:15 06:36 07:29 Sodium (135-145) mmol/L Anion Gap (4.00-12.00) mmol/L BUN 98 H (9.0-27.0) mg/dL Creatinine 2.03 H (0.6-1.5) mg/dL Est GFR (CKD-EPI) (>=60) BUN/Creatinine Ratio (12.00-20.00) Ratio Glucose 123 H (70-110) mg/dL POC Glucose (mg/dL) 257 H 130 H (70-110) mg/dL Microbiology - Last 24 Hours (Table) 03/28/24 17:35 Urine Culture - Final Urine,Voided Klebsiella pneumoniae Assessment and Plan Plan: Assessment: 1. Acute kidney injury secondary to ATN secondary to diuresis. Creatinine 2.94 on admission - 2.03 today. No proteinuria on UA. No hydronephrosis noted on kidney ultrasound. 2. Chronic kidney disease stage IV with baseline creatinine near 2 secondary to diabetic kidney disease and chronic interstitial nephritis. 3. Hypokalemia from diuresis. Replaced. Improved. 4. Status post fall with right femur fracture. Orthopedic surgery following. No surgery is planned at this time. 5. Hypertension with chronic kidney disease. Stable. 6. Anemia of chronic kidney disease on Aranesp. Hemoglobin above goal. Aranesp discontinued. 7. Primary hyperparathyroidism status post parathyroidectomy. Calcium level normal. 8. Klebsiella UTI. On antibiotics. Plan: Hold Lasix. No evidence of fluid overload at this time. Encouraged oral intake. Avoid nephrotoxins. Preserved EF noted on echocardiogram. Increase dose of hydralazine. Hold for systolic blood pressure less than 120.
[2024-04-01 12:52] LABS: Glucose,Whole Blood 199 mg/dL (70-110)
[2024-04-01] MEDS: ACETAMINOPHEN TAB 325 MG TAB PO PRN (17:11)
[2024-04-01 17:20] LABS: Glucose,Whole Blood 103 mg/dL (70-110)
[2024-04-01] MEDS: hydrALAZINE HCL 50 MG TAB PO SCH (17:32)
[2024-04-01 20:30] LABS: Glucose,Whole Blood 97 mg/dL (70-110)
[2024-04-02 07:30] LABS: Glucose,Whole Blood 121 mg/dL (70-110)
--- NOTE | 2024-04-02 08:06 | PN ---
PROGRESS NOTE DATE OF SERVICE: 03/30/2024 CHIEF COMPLAINT: Fracture of the right femur. HISTORY OF PRESENT ILLNESS: This gentleman is still lethargic. No surgery is planned. A knee brace is being ordered and he is to be nonweightbearing. Kidney function is abnormal and this is being followed by Nephrology. Echocardiogram has been done and is unremarkable. Urinalysis demonstrates 50,000 to 100,000 colonies of E coli. PHYSICAL EXAMINATION: GENERAL: He is lethargic, but awake. He is slightly confused. HEENT: Head, ears, eyes, nose, and mouth are normal. CHEST: Clear. CARDIAC: Normal. ABDOMEN: Protuberant, soft, and nontender. EXTREMITIES: There is a brace on the right knee. IMPRESSION: 1. Fracture of the right knee. 2. Acute on chronic kidney disease. 3. CML. 4. Diabetes. PLAN: Continue to monitor his renal function. He will go back to the long term once he is more stable. MMODL / IJN: [id number] /
--- NOTE | 2024-04-02 08:22 | PN ---
PROGRESS NOTE DATE OF SERVICE: 03/31/2024 CHIEF COMPLAINT: Fracture of the right femur and lethargy. HISTORY OF PRESENT ILLNESS: This patient has been fairly stable. He is still in renal failure, but this is being managed by Nephrology. He also has grown out of culture positive for Klebsiella in the urine. PHYSICAL EXAMINATION: GENERAL: He is awake and alert, but still more lethargic than normal. CHEST: Clear. CARDIAC: Normal. ABDOMEN: Soft, nontender. EXTREMITIES: Leg brace is now in place. IMPRESSION: 1. Fracture of the right distal femur. 2. Delirium. 3. Obesity. 4. CML. 5. Diabetes. 6. Congestive heart failure. 7. Urinary tract infection. PLAN: 1. Add Levaquin 750 mg IV once a day for his Klebsiella infection. 2. Continue to work on a discharge plan pending Nephrology's guidelines regarding his renal failure. MMLIZL / ETHEL: [id number] /
--- NOTE | 2024-04-02 08:28 | PN ---
PROGRESS NOTE DATE OF SERVICE: 04/01/2024 CHIEF COMPLAINT: Fracture of the right femur and renal failure. HISTORY OF PRESENT ILLNESS: This gentleman is just about the same. Mentation is not any better. PHYSICAL EXAMINATION: VITAL SIGNS: Normal. CHEST: Clear. CARDIAC: Normal. ABDOMEN: Soft, nontender. EXTREMITIES: Leg brace is in place. IMPRESSION: 1. Fracture of the right femur. 2. Spastic paraparesis. 3. Obesity. 4. Congestive heart failure. 5. Renal failure. 6. Delirium. 7. CML. PLAN: No change in program and try to return to the long term this week. MMODL / IJN: [id number] /
[2024-04-02] MEDS: ENOXAPARIN 40 MG/0.4 ML SYRINGE SQ SCH (09:27)
[2024-04-02] MEDS: LEVOFLOXACIN 500MG-D5W PMX 500 MG in DEXTROSE/WATER 1 100ML.BAG IVPB SCH (09:27)
[2024-04-02 12:40] LABS: Glucose,Whole Blood 150 mg/dL (70-110)
--- NOTE | 2024-04-02 15:22 | P.PN ---
Subjective patient is seen for follow-up for acute kidney injury. Renal function has improved. Serum creatinine decreased to 2.0 today. Diuretics on hold. No significant complaints today. Objective - Vital Signs Vital signs: Vital Signs Temp 97.9 F 04/02/24 12:51 Pulse 85 04/02/24 12:51 Resp 17 04/02/24 12:51 BP 120/70 04/02/24 12:51 Pulse Ox 96 04/02/24 12:51 FiO2 Intake & Output 04/01/24 04/02/24 04/02/24 18:59 06:59 18:59 Intake Total 540 Output Total 575 Balance 540 -575 Intake: Oral 540 Output: Urine 575 Other: Voiding Method Diaper Diaper Diaper Incontinent Incontinent Incontinent # Voids 2 # Bowel Movements 1 2 - Exam patient is awake, comfortable, no acute distress. Examination of the heart S1 and S2 Examination of the lungs bilateral breath sounds are heard Abdomen is soft nontender Examination of lower extremities shows no significant edema - Labs CBC & Chem 7: 03/28/24 12:27 04/01/24 06:36 Labs: Abnormal Lab Results - Last 24 Hours (Table) 04/02/24 04/02/24 Range/Units 07:21 12:28 POC Glucose (mg/dL) 121 H 150 H (70-110) mg/dL Assessment and Plan Assessment: 1. Acute kidney injury secondary to ATN secondary to diuresis. Creatinine 2.94 on admission - 2.03 yesterday. No proteinuria on UA. No hydronephrosis noted on kidney ultrasound. 2. Chronic kidney disease stage IV with baseline creatinine near 2 secondary to diabetic kidney disease and chronic interstitial nephritis. 3. Hypokalemia from diuresis. Replaced. Improved. 4. Status post fall with right femur fracture. Orthopedic surgery following. No surgery is planned at this time. 5. Hypertension with chronic kidney disease. Stable. 6. Anemia of chronic kidney disease on Aranesp. Hemoglobin above goal. Aranesp discontinued. 7. Primary hyperparathyroidism status post parathyroidectomy. Calcium level normal. 8. Klebsiella UTI. On antibiotics. Plan: continue to hold diuretics for now. Repeat labs in a.m.
[2024-04-02 17:29] LABS: Glucose,Whole Blood 145 mg/dL (70-110)
[2024-04-02 20:11] LABS: Glucose,Whole Blood 232 mg/dL (70-110)
--- NOTE | 2024-04-02 23:28 | PN ---
PROGRESS NOTE DATE OF SERVICE: 04/02/2024 CHIEF COMPLAINT: Fracture of the right knee and renal failure. HISTORY OF PRESENT ILLNESS: This gentleman is doing fairly well. He still remains lethargic and his renal function is still poor. Getting him back to the correction may be an issue. PHYSICAL EXAMINATION: CHEST: Clear. CARDIAC: Normal. ABDOMEN: Protuberant. EXTREMITIES: Right leg is in a brace. IMPRESSION: 1. Fracture of the right distal femur. 2. Spastic paraparesis. 3. Morbid obesity. 4. CML. 5. Renal failure. 6. Insulin-dependent diabetes mellitus. PLAN: We will work toward discharging him back to [facility]. MMODL / IJN: [id number] /
[2024-04-03 07:31] LABS: Glucose,Whole Blood 151 mg/dL (70-110)
[2024-04-03 12:20] LABS: Glucose,Whole Blood 152 mg/dL (70-110)
--- NOTE | 2024-04-03 13:21 | P.PN ---
Subjective patient is seen for follow-up for acute kidney injury. Renal function has improved. Serum creatinine decreased to 2.0 yesterday. Diuretics on hold. No significant complaints today. Objective - Vital Signs Vital signs: Vital Signs Temp 97.4 F L 04/03/24 12:42 Pulse 82 04/03/24 12:42 Resp 16 04/03/24 12:42 BP 121/71 04/03/24 12:42 Pulse Ox 96 04/03/24 12:42 FiO2 Intake & Output 04/02/24 04/03/24 04/03/24 18:59 06:59 18:59 Intake Total 240 Output Total 400 1 500 Balance -160 -1 -500 Intake: Oral 240 Output: Urine 400 500 Urine/Stool Mix 1 Other: Voiding Method Diaper Urinal Urinal Incontinent Diaper Diaper # Voids 2 2 # Bowel Movements 1 - Exam patient is sleeping but arousable. Examination of the heart S1 and S2 Examination of the lungs bilateral breath sounds are heard Abdomen is soft nontender Examination of lower extremities shows no significant edema - Labs CBC & Chem 7: 03/28/24 12:27 04/01/24 06:36 Labs: Abnormal Lab Results - Last 24 Hours (Table) 04/02/24 04/02/24 04/03/24 Range/Units 17:18 20:09 07:30 POC Glucose (mg/dL) 145 H 232 H 151 H (70-110) mg/dL 04/03/24 Range/Units 12:19 POC Glucose (mg/dL) 152 H (70-110) mg/dL Assessment and Plan Assessment: 1. Acute kidney injury secondary to ATN secondary to diuresis. Creatinine 2.94 on admission - 2.03 on 04/01/2024. No proteinuria on UA. No hydronephrosis noted on kidney ultrasound. 2. Chronic kidney disease stage IV with baseline creatinine near 2 secondary to diabetic kidney disease and chronic interstitial nephritis. 3. Hypokalemia from diuresis. Replaced. Improved. 4. Status post fall with right femur fracture. Orthopedic surgery following. No surgery is planned at this time. 5. Hypertension with chronic kidney disease. Stable. 6. Anemia of chronic kidney disease on Aranesp. Hemoglobin above goal. Nanette nesp discontinued. 7. Primary hyperparathyroidism status post parathyroidectomy. Calcium level normal. 8. Klebsiella UTI. On antibiotics. Plan: continue to hold diuretics for now. Repeat labs
--- NOTE | 2024-04-03 14:09 | PN ---
PROGRESS NOTE DATE OF SERVICE: 04/03/2024 CHIEF COMPLAINT: Fracture of the right femur. HISTORY OF PRESENT ILLNESS: This gentleman is about the same. He remains a little bit lethargic. Renal function is about the same. [facility] once he is cleared by Nephrology. PHYSICAL EXAMINATION: VITAL SIGNS: Normal. CHEST: He has good breath sounds bilaterally. CARDIAC: Normal. ABDOMEN: Protuberant, soft. EXTREMITIES: Right knee is in a brace. He is lethargic. IMPRESSION: 1. Fracture of the right knee. 2. Spastic paraparesis. 3. Mental status changes. 4. History of congestive heart failure. 5. Diabetes mellitus. 6. CML. PLAN: Await clearance for [facility]. MMLIZL / KELLYN: [id number] /
[2024-04-03 14:21] VITALS: BMI 36.1
--- NOTE | 2024-04-03 15:12 | P.PN ---
Subjective Progress Note Date: 04/03/24 Principal diagnosis: CML, fall with femur fracture In f/u today pt more alert today, he is depressed that he is going [facility] to rehab. He knows that he is confused at times, he does not always know where he is. No documented fevers, pt denies N or progressive pain. Objective - Vital Signs Vital signs: Vital Signs Temp 97.4 F L 04/03/24 12:42 Pulse 82 04/03/24 12:42 Resp 16 04/03/24 12:42 BP 121/71 04/03/24 12:42 Pulse Ox 96 04/03/24 12:42 FiO2 Intake & Output 04/02/24 04/03/24 04/03/24 18:59 06:59 18:59 Intake Total 240 Output Total 400 1 500 Balance -160 -1 -500 Weight 117.5 kg Intake: Oral 240 Output: Urine 400 500 Urine/Stool Mix 1 Other: Voiding Method Diaper Urinal Urinal Incontinent Diaper Diaper # Voids 2 2 1 # Bowel Movements 1 1 - Constitutional General appearance: Present: cooperative, no acute distress, obese - EENT Eyes: Present: anicteric sclerae, EOMI ENT: Present: hearing grossly normal - Respiratory Respiratory: bilateral: CTA - Cardiovascular Heart sounds: normal: S1, S2 - Peripheral edema leg Peripheral Edema: right: Trace, left: None - Gastrointestinal General gastrointestinal: Present: soft - Neurologic Neurologic: Present: CNII-XII intact - Musculoskeletal Musculoskeletal: Present: generalized weakness - Psychiatric Psychiatric Comment(s): A&Ox2, calm affect - Labs CBC & Chem 7: 03/28/24 12:27 04/01/24 06:36 Labs: Abnormal Lab Results - Last 24 Hours (Table) 04/02/24 04/02/24 04/03/24 Range/Units 17:18 20:09 07:30 POC Glucose (mg/dL) 145 H 232 H 151 H (70-110) mg/dL 04/03/24 Range/Units 12:19 POC Glucose (mg/dL) 152 H (70-110) mg/dL Assessment and Plan (1) Femur fracture, right Current Visit: Yes Status: Acute Priority: High Code(s): S72.91XA - UNSP FRACTURE OF RIGHT FEMUR, INIT FOR CLOS FX SNOMED Code(s): 30743810 (2) Chronic myelocytic leukemia Current Visit: No Status: Chronic Priority: Medium Code(s): C92.10 - CHRONIC MYELOID LEUK, BCR/ABL-POSITIVE, NOT ACHIEVE REMIS SNOMED Code(s): 83437970 Plan: CML -Patient has been on Gleevec for many years for treatment of CML. He has done very well with the same. -Okay to hold Gleevec in the acute setting or if plans for surgery. Ok if needs to be held for LETTY -Pt has had a complicated hospital/rehab/LETTY course since , been on and off gleevec a few times. No BCR ABL testing since last year. Repeat BCR-ABL testing. Femur fracture -Reviewed Orthopedic notes, no surgical intervention planned. -Plans for non-wt bearing. Recommend DVT prophylaxis while non-wt bearing. Lovenox 30mg daily ordered inpt. Recommend pt cont on the same in rehab until he is moving around better
[2024-04-03 17:19] LABS: Glucose,Whole Blood 158 mg/dL (70-110)
[2024-04-03 19:28] LABS: BUN/Creat Ratio 38.48 Ratio (12.00-20.00); Blood Urea Nitrogen 80.8 mg/dL (9.0-27.0); Carbon Dioxide 26.2 mmol/L (21.6-31.8); Chloride 104 mmol/L (96-109); Glucose 172 mg/dL (70-110); Potassium 4.2 mmol/L (3.5-5.5); Sodium 143 mmol/L (135-145)
[2024-04-03 20:29] LABS: Glucose,Whole Blood 280 mg/dL (70-110)
[2024-04-04 07:17] LABS: Glucose,Whole Blood 143 mg/dL (70-110)
[2024-04-04 12:07] LABS: Glucose,Whole Blood 301 mg/dL (70-110)
[2024-04-04] MEDS ORDERED: LEVOFLOXACIN 500 MG TAB PO STA (14:59)
--- NOTE | 2024-04-04 17:01 | DS ---
DISCHARGE SUMMARY CHIEF COMPLAINT: Fall with fracture of the right distal femur. HISTORY OF PRESENT ILLNESS AND PHYSICAL EXAMINATION: Details of this man's history and physical can be found in the initial workup. LABORATORY STUDIES: While he is in the hospital he had laboratory studies, details of which can be found in the laboratory section of his chart. COURSE IN THE HOSPITAL: After admission, he was placed on bedrest and seen by Orthopedic Surgery. It was determined that he probably should be treated conservatively with a straight leg brace in that he was very high risk for surgical intervention. While in the hospital, he also developed a Klebsiella urinary tract infection which was treated. He was followed by Nephrology for his renal failure. Finally, he was felt to be stable enough to be discharged back to the group home and he will be transferred to [facility] in [place]. FINAL DIAGNOSES: 1. Distal femur fracture. 2. Klebsiella urinary tract infection. 3. Delirium. 4. Acute exacerbation of chronic renal failure. 5. CML. 6. Poorly controlled diabetes mellitus. 7. Obesity. 8. History of congestive heart failure. OPERATIONS: None. CONSULTATIONS: Orthopedics and Nephrology. MMODL / IJN: [id number] /
[2024-04-04 17:09] LABS: Glucose,Whole Blood 178 mg/dL (70-110)
[2024-04-04 20:18] LABS: Glucose,Whole Blood 147 mg/dL (70-110)
[2024-04-05 07:09] LABS: Glucose,Whole Blood 113 mg/dL (70-110)
[2024-04-05 07:50] VITALS: BP 134/65; PULSE 89; TEMP 97.9
[2024-04-05 08:42] VITALS: RESP 17
--- NOTE | 2024-04-06 22:46 | PN ---
PROGRESS NOTE DATE OF SERVICE: 04/04/2024 CHIEF COMPLAINT: Fracture of the right femur and general debility. HISTORY OF PRESENT ILLNESS: This gentleman is cleared for discharge back to [facility]. PHYSICAL EXAMINATION: GENERAL: He is a little bit more alert today. CHEST: Clear. CARDIAC: Normal. ABDOMEN: Soft, nontender. IMPRESSION: 1. Fracture of right femur. 2. CML. 3. Uncontrolled diabetes. 4. Delirium. 5. Obesity. PLAN: Discharge back to long-term when bed is available. MMODL / IJN: [id number] /
[2024-04-10] MEDS ORDERED: DARBEPOETIN ALFA 60 MCG/0.3 ML SYRINGE SQ SCH (09:00)
== END 2024-04-05 10:48 | DRG 533 ==
LOC: EC 19:06 → 5NMEDONC 03-27 03:41
PROVIDERS: ADMIT Family Medicine; ATTEND Family Medicine
DX: S72.401A Unspecified fracture of lower end of right femur, initial encounter for closed fracture (principal); N17.0 Acute kidney failure with tubular necrosis; C92.10 Chronic myeloid leukemia, BCR/ABL-positive, not having achieved remission; F05 Delirium due to known physiological condition; N11.9 Chronic tubulo-interstitial nephritis, unspecified; I13.0 Hypertensive heart and chronic kidney disease with heart failure and stage 1 through stage 4 chronic kidney disease, or unspecified chronic kidney disease; N39.0 Urinary tract infection, site not specified; N18.4 Chronic kidney disease, stage 4 (severe); D63.1 Anemia in chronic kidney disease; I50.9 Heart failure, unspecified; G83.9 Paralytic syndrome, unspecified; E11.22 Type 2 diabetes mellitus with diabetic chronic kidney disease; E11.65 Type 2 diabetes mellitus with hyperglycemia; I69.341 Monoplegia of lower limb following cerebral infarction affecting right dominant side; E66.01 Morbid (severe) obesity due to excess calories; E21.0 Primary hyperparathyroidism; Z68.36 Body mass index [BMI] 36.0-36.9, adult; J45.909 Unspecified asthma, uncomplicated; F32.A Depression, unspecified; B96.1 Klebsiella pneumoniae [K. pneumoniae] as the cause of diseases classified elsewhere; Z79.4 Long term (current) use of insulin; Z28.310 Unvaccinated for COVID-19; M10.9 Gout, unspecified; E78.5 Hyperlipidemia, unspecified; E87.6 Hypokalemia; M19.041 Primary osteoarthritis, right hand; M19.042 Primary osteoarthritis, left hand; M17.0 Bilateral primary osteoarthritis of knee; T50.2X5A Adverse effect of carbonic-anhydrase inhibitors, benzothiadiazides and other diuretics, initial encounter; G47.33 Obstructive sleep apnea (adult) (pediatric); K21.9 Gastro-esophageal reflux disease without esophagitis; R32 Unspecified urinary incontinence; Z79.890 Hormone replacement therapy; Z79.899 Other long term (current) drug therapy; Z87.891 Personal history of nicotine dependence; Z71.3 Dietary counseling and surveillance; W01.198A Fall on same level from slipping, tripping and stumbling with subsequent striking against other object, initial encounter; Y92.008 Other place in unspecified non-institutional (private) residence as the place of occurrence of the external cause; Y93.01 Activity, walking, marching and hiking; Z88.5 Allergy status to narcotic agent; Z88.8 Allergy status to other drugs, medicaments and biological substances; Z88.2 Allergy status to sulfonamides
CPT/HCPCS: 36415; 71045; 76770; 80048; 80053; 81001; 81206; 81207; 83735; 83880; 85025; 85610; 85730; 86850; 86900; 86901; 87077; 87086; 87186; 93005; 93306; 99285

== ENCOUNTER 2024-04-26 11:06 | Inpatient (IN) | payer OTHER, MEDICARE ==
[2024-04-26] MEDS: SODIUM CHLORIDE 0.9% 500 ML 500 ML IV ONE ×2 (11:41→12:51)
[2024-04-26 11:46] LABS: Basophils % (A) 0 %; Eosinophils # (A) 0.2 k/uL (0-0.7); Eosinophils % (A) 3 %; HCT 34.5 % (39.0-53.0); HGB 11.8 gm/dL (13.0-17.5); Lymphocytes # (A) 0.8 k/uL (1.0-4.8); Lymphocytes % (A) 12 %; MCH 30.7 pg (25.0-35.0); MCHC 34.3 g/dL (31.0-37.0); MCV 89.7 fL (80.0-100.0); Mean Platelet Volume 9.8; Monocytes # (A) 0.6 k/uL (0-1.0); Monocytes % (A) 10 %; Neutrophils # (A) 4.4 k/uL (1.3-7.7); Neutrophils % (A) 72 %; Platelet Count 133 k/uL (150-450); RBC 3.85 m/uL (4.30-5.90); RDW 14.7 % (11.5-15.5); WBC 6.2 k/uL (3.8-10.6)
[2024-04-26 11:59] LABS: ALT 48 U/L (4-49); AST 113 U/L (17-59); African American GFR (CKD) 24 (>60 ml/min/1.73 sqM); Albumin 2.7 g/dL (3.5-5.0); Alkaline Phosphatase 241 U/L (38-126); Anion Gap 5 mmol/L; Calcium 8.1 mg/dL (8.4-10.2); Carbon Dioxide 29 mmol/L (22-30); Chloride 99 mmol/L (98-107); Glucose 133 mg/dL (74-99); Magnesium 2.2 mg/dL (1.6-2.3); Non-African American GFR(CKD) 21 (>60 ml/min/1.73 sqM); Sodium 133 mmol/L (137-145); Total Bilirubin 0.7 mg/dL (0.2-1.3); Total Protein 5.6 g/dL (6.3-8.2)
--- NOTE | 2024-04-26 12:14 | ED ---
General Adult HPI - General Chief complaint: Weakness Stated complaint: Failure to Thrive Time Seen by Provider: 04/26/24 11:09 Source: patient, EMS, RN notes reviewed, old records reviewed Mode of arrival: EMS Limitations: no limitations - History of Present Illness Initial comments: 73-year-old male transported from the long term for evaluation of weakness, failure to thrive, hypoglycemia. The patient has had nausea and has not been eating well. He had a recent femur fracture which he reports was nonoperative and he is bedbound at this time. He has no new or worsening pain complaints. No reported fever. Apparently the blood sugar was low. - Related Data Home Medications Medication Instructions Recorded Confirmed Colchicine [Colcrys] 0.6 mg PO DAILY 04/12/23 03/26/24 Famotidine 20 mg PO BID 04/12/23 03/26/24 Febuxostat [Uloric] 40 mg PO DAILY 04/12/23 03/26/24 Simvastatin [Zocor] 10 mg PO HS 04/12/23 03/26/24 Acetaminophen Tab [Tylenol] 650 mg PO Q4-6H PRN 03/26/24 03/26/24 Aranesp 60mcg/Ml 60 mg SQ Q14D 03/26/24 03/26/24 DULoxetine HCL [Cymbalta] 60 mg PO DAILY 03/26/24 03/26/24 Furosemide [Lasix] 40 mg PO BID 03/26/24 03/26/24 INSULIN LISPRO (humaLOG) [humaLOG] 9 units SQ AC-TID 03/26/24 03/26/24 Imatinib Mesylate 300 mg PO HS 03/26/24 03/26/24 Levothyroxine Sodium 50 mcg PO DAILY 03/26/24 03/26/24 Lidocaine 4% Patch 1 patch TRANSDERM DAILY 03/26/24 03/26/24 Magnesium Oxide [Magox 400] 400 mg PO DAILY 03/26/24 03/26/24 Potassium Chloride 10 meq PO DAILY 03/26/24 03/26/24 Pregabalin [Lyrica] 100 mg PO BID 03/26/24 03/26/24 Propylene Glycol [Systane Complete] 2 drop BOTH EYES Q5M PRN 03/26/24 03/26/24 Tamsulosin [Flomax] 0.4 mg PO DAILY 03/26/24 03/26/24 amLODIPine 10 mg PO DAILY 03/26/24 03/26/24 bisacodyL [Dulcolax] 10 mg RECTAL DAILY PRN 03/26/24 03/26/24 hydrALAZINE HCL [Apresoline] 25 mg PO TID 03/26/24 03/26/24 hydrALAZINE HCL [Apresoline] 50 mg PO TID 03/26/24 03/26/24 hydroCHLOROthiazide [Hydrodiuril] 25 mg PO DAILY 03/26/24 03/26/24 rOPINIRole HCL [Requip] 1 mg PO HS 03/26/24 03/26/24 Previous Rx's Medication Instructions Recorded Insulin Detemir (Levemir) [Levemir] 26 unit SQ DAILY@0700 #100 each 04/04/24 Levofloxacin [Levaquin] 500 mg PO ONCE #10 tab 04/04/24 Allergies Allergy/AdvReac Type Severity Reaction Status Date / Time codeine Allergy Unknown Verified 04/26/24 11:16 lisinopril Allergy Unknown Verified 04/26/24 11:16 oxycodone Allergy Unknown Verified 04/26/24 11:16 sulfamethoxazole Allergy Unknown Verified 04/26/24 11:16 [From Bactrim] trimethoprim [From Bactrim] Allergy Unknown Verified 04/26/24 11:16 TIDE LAUNDRY SOAP Allergy Severe Rash/Hives Uncoded 04/26/24 11:16 Review of Systems ROS Statement: Those systems with pertinent positive or pertinent negative responses have been documented in the HPI. ROS Other: All systems not noted in ROS Statement are negative. Past Medical History Past Medical History: Asthma, Cancer, Diabetes Mellitus, GERD/Reflux, Hyperlipidemia, Hypertension, Osteoarthritis (OA), Pneumonia, Renal Disease, Sleep Apnea/CPAP/BIPAP Additional Past Medical History / Comment(s): [place] leukemia recently diagnosed and started oral chemo 10/10/19, IDDM type II, pt states he occasionally has hypoglycemia during middle of night, arthritis bilateral hands and occasionally in bilateral knees, gout R foot, WILLAM with Cpap use, chronic kidney disease stage 4 with baseline creatinine near 2 due to diabetic kidney disease and chronic interstitial nephritis, anemia History of Any Multi-Drug Resistant Organisms: ESBL Date of last positivie culture/infection: 03/28/24 MDRO Source:: urine Past Surgical History: Cholecystectomy, Hernia Repair Additional Past Surgical History / Comment(s): 09/2019 bone marrow biopsy, incisional hernia, colonoscopy with benign polyps. Right cataract removal with IOL implant. PARATHYROIDECTOMY - July 2023 Past Anesthesia/Blood Transfusion Reactions: No Reported Reaction Past Psychological History: No Psychological Hx Reported Smoking Status: Former smoker Past Alcohol Use History: None Reported Past Drug Use History: None Reported - Past Family History Father Family Medical History: Diabetes Mellitus Additional Family Medical History / Comment(s): Father is 97 yrs old. Mother Family Medical History: Dementia Additional Family Medical History / Comment(s): Mother of dementia at the age of 85yrs. General Exam Limitations: no limitations General appearance: alert, in no apparent distress Head exam: Present: atraumatic, normocephalic Eye exam: Present: normal appearance, PERRL ENT exam: Present: mucous membranes dry Neck exam: Present: normal inspection. Absent: tenderness, meningismus Respiratory exam: Present: normal lung sounds bilaterally. Absent: respiratory distress, wheezes Cardiovascular Exam: Present: regular rate, normal rhythm GI/Abdominal exam: Present: soft. Absent: distended, tenderness, guarding Neurological exam: Present: alert, CN II-XII intact. Absent: oriented X3, motor sensory deficit Skin exam: Present: warm, dry, intact. Absent: cyanosis, diaphoretic Course Vital Signs 04/26/24 11:11 Temperature 97.5 F L Pulse Rate 89 Respiratory 18 Rate Blood Pressure 108/59 O2 Sat by Pulse 98 Oximetry Medical Decision Making - Medical Decision Making Was pt. sent in by a medical professional or institution (, PA, LOG WASHER, urgent care, hospital, or long term...) When possible be specific @ -No Did you speak to anyone other than the patient for history (EMS, parent, family, police, friend...)? What history was obtained from this source @ -No Did you review nursing and triage notes (agree or disagree)? Why? @ -I reviewed and agree with nursing and triage notes Were old charts reviewed (outside hosp., previous admission, EMS record, old EKG, old radiological studies, urgent care reports/EKG's, long term records)? Report findings @ -No old charts were reviewed Differential Weakness: Hypoglycemia, shock, sepsis, hyponatremia, anemia, infection, TX, ETOH, adverse medicine reaction, overdose, stroke, this is not meant to be an all-inclusive list. EKG interpreted by me (3pts min.). @Sinus rhythm, rate of 88, intraventricular conduction delay, MN interval 136, QRS duration 139, QTc [address] segment elevation. X-rays interpreted by me (1pt min.). @ -None done CT interpreted by me (1pt min.). @ -None done U/S interpreted by me (1pt. min.). @ -None done What testing was considered but not performed or refused? (CT, X-rays, U/S, labs)? Why? @ -None What meds were considered but not given or refused? Why? @ -None Did you discuss the management of the patient with other professionals (professionals i.e. , PA, LOG WASHER, lab, RT, psych nurse, social science professor, heel attacher, teacher, loss prevention officer, sample case porter)? Give summary @ -No Was smoking cessation discussed for >3mins.? @ -No Was critical care preformed (if so, how long)? @ -No Were there social determinants of health that impacted care today? How? (Homelessness, low income, unemployed, alcoholism, drug addiction, transportation, low edu. Level, literacy, decrease access to med. care, usp, rehab)? @ -No Was there de-escalation of care discussed even if they declined (Discuss DNR or withdrawal of care, Hospice)? DNR status @ -No What co-morbidities impacted this encounter? (DM, HTN, Smoking, COPD, CAD, Cancer, CVA, ARF, Chemo, Hep., AIDS, mental health diagnosis, sleep apnea, morb id obesity)? @ -Immobility secondary to femur fracture, failure to thrive, chronic kidney disease Was patient admitted / discharged? Hospital course, mention meds given and route, prescriptions, significant lab abnormalities, going to OR and other pertinent info. @73-year-old male from the long term with decreased oral intake over the past 2 weeks. Patient appears very dehydrated. He has chronic renal failure and has a significantly worsening BUN which I feel is contributing to his nausea and poor appetite. His potassium was 2.5 which is replaced. He started on IV fluids for acute on chronic renal failure. The patient has followed with nephrology in the past and there has been discussions of dialysis and there is also been some preliminary discussions about the possibility of a feeding tube. The patient will be admitted to internal medicine, Dr. Boston is covering for Dr. Castellano. Dr. Boston will accept admission. Undiagnosed new problem with uncertain prognosis? @ -No Drug Therapy requiring intensive monitoring for toxicity (Heparin, Nitro, Insulin, Cardizem)? @ -No Were any procedures done? @ -No Diagnosis/symptom? @ -Acute on chronic renal failure, hypokalemia, failure to thrive Acute, or Chronic, or Acute on Chronic? @ -Acute on chronic Uncomplicated (without systemic symptoms) or Complicated (systemic symptoms)? @ -Default Side effects of treatment? @ -No Exacerbation, Progression, or Severe Exacerbation? @ -No Poses a threat to life or bodily function? How? (Chest pain, [place], [place], pneumonia, PE, COPD, DKA, ARF, appy, cholecystitis, CVA, Diverticulitis, Homicidal, Suicidal, threat to staff... and all critical care pts) @ -[Yes, worsening kidney function, electrolyte abnormality - Lab Data Result diagrams: 04/26/24 11:38 04/26/24 11:38 Lab Results 04/26/24 04/26/24 04/26/24 Range/Units 11:38 11:38 11:38 WBC 6.2 (3.8-10.6) k/uL RBC 3.85 L (4.30-5.90) m/uL Hgb 11.8 L (13.0-17.5) gm/dL Hct 34.5 L (39.0-53.0) % MCV 89.7 (80.0-100.0) fL MCH 30.7 (25.0-35.0) pg MCHC 34.3 (31.0-37.0) g/dL RDW 14.7 (11.5-15.5) % Plt Count 133 L (150-450) k/uL MPV 9.8 Neutrophils % 72 % Lymphocytes % 12 % Monocytes % 10 % Eosinophils % 3 % Basophils % 0 % Neutrophils # 4.4 (1.3-7.7) k/uL Lymphocytes # 0.8 L (1.0-4.8) k/uL Monocytes # 0.6 (0-1.0) k/uL Eosinophils # 0.2 (0-0.7) k/uL Basophils # 0.0 (0-0.2) k/uL PT 11.6 (10.0-12.5) sec INR 1.1 (<1.2) APTT 33.6 H (22.0-30.0) sec Sodium 133 L (137-145) mmol/L Potassium 2.5 L* (3.5-5.1) mmol/L Chloride 99 (98-107) mmol/L Carbon Dioxide 29 (22-30) mmol/L Anion Gap 5 mmol/L BUN 157 H* (9-20) mg/dL Creatinine 2.81 H (0.66-1.25) mg/dL Est GFR (CKD-EPI)AfAm 24 (>60 ml/min/1.73 sqM) Est GFR (CKD-EPI)NonAf 21 (>60 ml/min/1.73 sqM) Glucose 133 H (74-99) mg/dL Plasma Lactic Acid Michael (0.7-2.0) mmol/L Calcium 8.1 L (8.4-10.2) mg/dL Magnesium 2.2 (1.6-2.3) mg/dL Total Bilirubin 0.7 (0.2-1.3) mg/dL AST 113 H (17-59) U/L ALT 48 (4-49) U/L Alkaline Phosphatase 241 H (38-126) U/L Troponin I (0.000-0.034) ng/mL Total Protein 5.6 L (6.3-8.2) g/dL Albumin 2.7 L (3.5-5.0) g/dL 04/26/24 04/26/24 Range/Units 11:38 11:38 WBC (3.8-10.6) k/uL RBC (4.30-5.90) m/uL Hgb (13.0-17.5) gm/dL Hct (39.0-53.0) % MCV (80.0-100.0) fL MCH (25.0-35.0) pg MCHC (31.0-37.0) g/dL RDW (11.5-15.5) % Plt Count (150-450) k/uL MPV Neutrophils % % Lymphocytes % % Monocytes % % Eosinophils % % Basophils % % Neutrophils # (1.3-7.7) k/uL Lymphocytes # (1.0-4.8) k/uL Monocytes # (0-1.0) k/uL Eosinophils # (0-0.7) k/uL Basophils # (0-0.2) k/uL PT (10.0-12.5) sec INR (<1.2) APTT (22.0-30.0) sec Sodium (137-145) mmol/L Potassium (3.5-5.1) mmol/L Chloride (98-107) mmol/L Carbon Dioxide (22-30) mmol/L Anion Gap mmol/L BUN (9-20) mg/dL Creatinine (0.66-1.25) mg/dL Est GFR (CKD-EPI)AfAm (>60 ml/min/1.73 sqM) Est GFR (CKD-EPI)NonAf (>60 ml/min/1.73 sqM) Glucose (74-99) mg/dL Plasma Lactic Acid Michael 0.7 (0.7-2.0) mmol/L Calcium (8.4-10.2) mg/dL Magnesium (1.6-2.3) mg/dL Total Bilirubin (0.2-1.3) mg/dL AST (17-59) U/L ALT (4-49) U/L Alkaline Phosphatase (38-126) U/L Troponin I 0.057 H* (0.000-0.034) ng/mL Total Protein (6.3-8.2) g/dL Albumin (3.5-5.0) g/dL Disposition Clinical Impression: Altered mental status, Elevated troponin, Nausea and vomiting, Acute renal failure Disposition: ADMITTED IP TO THIS HOSP Condition: Stable Is patient prescribed a controlled substance at d/c from ED?: No Referrals: Dwayne Castellano MD [Primary Care Provider] - 1-2 days Time of Disposition: 13:00
[2024-04-26 12:15] LABS: INR 1.1 (<1.2); Partial Thromboplastin Time 33.6 sec (22.0-30.0); Prothrombin Time 11.6 sec (10.0-12.5)
[2024-04-26 12:32] LABS: Potassium 2.5 mmol/L (3.5-5.1)
[2024-04-26 12:33] LABS: Blood Urea Nitrogen 157 mg/dL (9-20)
[2024-04-26] MEDS: SODIUM CHLORIDE 0.9% 1,000 ML IV SCH (12:50)
[2024-04-26] MEDS ORDERED: NALOXONE 0.4 MG/ML 1 ML VIAL IV PRN (12:56)
[2024-04-26] MEDS: POTASSIUM CHLORIDE 10 MEQ in WATER FOR INJECTION 1 100ML.BAG IVPB SCH ×2 (13:12→21:35)
--- NOTE | 2024-04-26 16:16 | XR ---
EXAMINATION TYPE: XR chest 2V DATE OF EXAM: 04/26/2024 3:40 PM CLINICAL INDICATION:Male, 73 years old with history of vomiting; COMPARISON: Chest radiographs from 03/26/2024. TECHNIQUE: XR chest 2V Frontal view of the chest. FINDINGS: Lungs/Pleura: There is no evidence of pleural effusion, focal consolidation, or pneumothorax. Pulmonary vascularity: Unremarkable. Heart/mediastinum: Cardiomediastinal silhouette is unremarkable. Musculoskeletal: No acute osseous pathology. IMPRESSION: Low lung volumes with a generalized hazy appearance which could represent atelectasis versus pulmonar y edema correlate with serum BNP.
--- NOTE | 2024-04-26 16:17 | XR ---
EXAMINATION TYPE: XR KUB DATE OF EXAM: 04/26/2024 3:40 PM CLINICAL INDICATION:Male, 73 years old with history of vomiting; COMPARISON: 05/15/2017. TECHNIQUE: One radiographic view of the abdomen was obtained. FINDINGS: The bowel gas pattern is nonspecific without dilated loops of small or large bowel. . Fecal material and gas are demonstrated throughout the colon and rectum. There is no evidence for organomegaly or pneumoperitoneum. The osseous structures are intact. No ab normal calcifications are present. Fixation changes in the spine with hardware in place. Right upper quadrant cholecystectomy clips. Moderate osteophyte formation to the superior acetabulum. Atheroscler osis of the arterial vasculature. IMPRESSION: Nonspecific bowel gas pattern without radiographic evidence for acute process.
[2024-04-26 17:02] LABS: Glucose,Whole Blood 102 mg/dL (70-110)
[2024-04-26 20:08] LABS: Glucose,Whole Blood 125 mg/dL (70-110)
[2024-04-26] MEDS ORDERED: ONDANSETRON 4 MG TAB PO PRN (20:46)
--- NOTE | 2024-04-26 20:58 | P.HPIM ---
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 Patient states he came because of his low appetite no he is not eating. States also he vomited 8 times this morning no chest pain no abdominal pain Denies any urinary symptoms No headache or dizziness He is not working at baseline Has a Garcia with clear urine Hemodynamically stable Had febrile Potassium 2.5, sodium is mildly low creatinine slightly above baseline at 2.8 with patient Chronic kidney disease stage III Platelet count is mildly low at 33 and mildly anemic at 11.8. Troponin mildly elevated EKG showing normal sinus rhythm at [address]-T changes Chest x-ray showing lung volumes with atelectasis versus pulmonary edema KUB is negative for specific bowel gas obstructive pattern EKG from 03/2024 showing preserved ejection fraction 55 to 60% Patient was on Lasix and hydrochlorothiazide at home which were held Also is diabetic. Hold his Levemir 26 units at bedtime and NovoLog 9 units with meals Patient was started on normal saline 75 mL/h Review of Systems Review of systems CONSTITUTIONAL: No fever, no malaise, no fatigue. HEENT: No recent visual problems or hearing problems. Denied any sore throat. CARDIOVASCULAR: No orthopnea, PND, no palpitations, no syncope. PULMONARY: No shortness of breath, no cough, no hemoptysis. GASTROINTESTINAL: No diarrhea, no nausea, no vomiting, no abdominal pain. Normoactive bowel sounds. NEUROLOGICAL: No headaches, no weakness, no numbness. HEMATOLOGICAL: Denies any bleeding or petechiae. GENITOURINARY: Denies any burning micturition, frequency, or urgency. MUSCULOSKELETAL/RHEUMATOLOGICAL: Denies any joint pain, swelling, or any muscle pain. ENDOCRINE: Denies any polyuria or polydipsia. Past Medical History Past Medical History: Asthma, Cancer, Diabetes Mellitus, GERD/Reflux, Hyperlipidemia, Hypertension, Osteoarthritis (OA), Pneumonia, Renal Disease, Sleep Apnea/CPAP/BIPAP Additional Past Medical History / Comment(s): [place] leukemia recently diagnosed and started oral chemo 10/10/19, IDDM type II, pt states he oc casionally has hypoglycemia during middle of night, arthritis bilateral hands and occasionally in bilateral knees, gout R foot, WILLAM with Cpap use, chronic kidney disease stage 4 with baseline creatinine near 2 due to diabetic kidney disease and chronic interstitial nephritis, anemia History of Any Multi-Drug Resistant Organisms: ESBL Date of last positivie culture/infection: 03/28/24 MDRO Source:: urine Past Surgical History: Cholecystectomy, Hernia Repair Additional Past Surgical History / Comment(s): 09/2019 bone marrow biopsy, incisional hernia, colonoscopy with benign polyps. Right cataract removal with IOL implant. PARATHYROIDECTOMY - July 2023 Past Anesthesia/Blood Transfusion Reactions: No Reported Reaction Past Psychological History: No Psychological Hx Reported Smoking Status: Former smoker Past Alcohol Use History: None Reported Past Drug Use History: None Reported - Past Family History Father Family Medical History: Diabetes Mellitus Additional Family Medical History / Comment(s): Father is 97 yrs old. Mother Family Medical History: Dementia Additional Family Medical History / Comment(s): Mother of dementia at the age of 85yrs. Medications and Allergies Home Medications Medication Instructions Recorded Confirmed Type Colchicine [Colcrys] 0.6 mg PO DAILY 04/12/23 04/26/24 History Famotidine 20 mg PO BID 04/12/23 04/26/24 History Febuxostat [Uloric] 40 mg PO DAILY 04/12/23 04/26/24 History Simvastatin [Zocor] 10 mg PO HS 04/12/23 04/26/24 History Acetaminophen Tab [Tylenol] 650 mg PO Q6H PRN 03/26/24 04/26/24 History DULoxetine HCL [Cymbalta] 60 mg PO DAILY 03/26/24 04/26/24 History Furosemide [Lasix] 40 mg PO BID 03/26/24 04/26/24 History Imatinib Mesylate 300 mg PO HS 03/26/24 04/26/24 History Levothyroxine Sodium 50 mcg PO DAILY 03/26/24 04/26/24 History Lidocaine 4% Patch 1 patch TRANSDERM DAILY 03/26/24 04/26/24 History Magnesium Oxide [Magox 400] 400 mg PO DAILY 03/26/24 04/26/24 History Potassium Chloride 10 meq PO DAILY 03/26/24 04/26/24 History Pregabalin [Lyrica] 100 mg PO BID 03/26/24 04/26/24 History Tamsulosin [Flomax] 0.4 mg PO DAILY 03/26/24 04/26/24 History amLODIPine 10 mg PO DAILY 03/26/24 04/26/24 History bisacodyL [Dulcolax] 10 mg RECTAL DAILY PRN 03/26/24 04/26/24 History hydrALAZINE HCL [Apresoline] 25 mg PO Q8HR@0500,1300,2100 03/26/24 04/26/24 Hist ory hydrALAZINE HCL [Apresoline] 50 mg PO Q8HR@0500,1300,2100 03/26/24 04/26/24 History hydroCHLOROthiazide [Hydrodiuril] 25 mg PO DAILY 03/26/24 04/26/24 History rOPINIRole HCL [Requip] 1 mg PO HS 03/26/24 04/26/24 History Baclofen 5 mg PO Q8H PRN 04/26/24 04/26/24 History Darbepoetin Bo [Aranesp] 60 mcg SQ Q14D 04/26/24 04/26/24 History Imipenem/Cilastatin Sodium 500 mg IV Q6H 04/26/24 04/26/24 History [Primaxin] Insulin Detemir [Levemir Flexpen] 26 unit SQ DAILY 04/26/24 04/26/24 History Insulin Lispro [Insulin Lispro 9 unit SQ AC-TID 04/26/24 04/26/24 History Kwikpen U-100] Naloxone HCl [Narcan] 4 mg NASAL DIRECTED PRN 04/26/24 04/26/24 History Ondansetron [Zofran] 4 mg PO Q6H PRN 04/26/24 04/26/24 History Prostat 30 ml PO BID 04/26/24 04/26/24 History Sucralfate [Carafate] 1 gm PO ACHS 04/26/24 04/26/24 History traMADol HCL 50 mg PO Q6H PRN 04/26/24 04/26/24 History Allergies Allergy/AdvReac Type Severity Reaction Status Date / Time TACOS Inhibitors Allergy Unknown Verified 04/26/24 13:12 codeine Allergy Unknown Verified 04/26/24 13:12 lisinopril Allergy Unknown Verified 04/26/24 13:12 oxycodone Allergy Unknown Verified 04/26/24 13:12 sulfamethoxazole Allergy Unknown Verified 04/26/24 13:12 [From Bactrim] trimethoprim [From Bactrim] Allergy Unknown Verified 04/26/24 13:12 TIDE LAUNDRY SOAP Allergy Severe Rash/Hives Uncoded 04/26/24 11:16 Physical Exam Vitals: Vital Signs Temp Pulse Resp BP Pulse Ox 04/26/24 11:11 97.5 F L 89 18 108/59 98 Intake and Output 04/25/24 04/26/24 04/26/24 22:59 06:59 14:59 Other: Weight 117.934 kg -GENERAL: The patient is alert and oriented x1, not in any acute distress. Well developed, well nourished. Dehydrated HEENT: Pupils are round and equally reacting to light. EOMI. No scleral icterus. No conjunctival pallor. Normocephalic, atraumatic. No pharyngeal erythema. No thyromegaly. CARDIOVASCULAR: S1 and S2 present. No murmurs, rubs, or gallops. PULMONARY: Chest is clear to auscultation, no wheezing , no crackles. ABDOMEN: Soft, nontender, nondistended, normoactive bowel sounds. No palpable organomegaly. MUSCULOSKELETAL: No joint swelling or deformity. EXTREMITIES: No cyanosis, clubbing, or pedal edema. NEUROLOGICAL: Gross neurological examination did not reveal any focal deficits. SKIN: No rashes. no petechiae. Results CBC & Chem 7: 04/26/24 11:38 04/26/24 11:38 Labs: Abnormal Lab Results - Last 24 Hours (Table) 04/26/24 04/26/24 04/26/24 Range/Units 11:38 11:38 11:38 RBC 3.85 L (4.30-5.90) m/uL Hgb 11.8 L (13.0-17.5) gm/dL Hct 34.5 L (39.0-53.0) % Plt Count 133 L (150-450) k/uL Lymphocytes # 0.8 L (1.0-4.8) k/uL APTT 33.6 H (22.0-30.0) sec Sodium 133 L (137-145) mmol/L Potassium 2.5 L* (3.5-5.1) mmol/L BUN 157 H* (9-20) mg/dL Creatinine 2.81 H (0.66-1.25) mg/dL Glucose 133 H (74-99) mg/dL Calcium 8.1 L (8.4-10.2) mg/dL AST 113 H (17-59) U/L Alkaline Phosphatase 241 H (38-126) U/L Troponin I (0.000-0.034) ng/mL Total Protein 5.6 L (6.3-8.2) g/dL Albumin 2.7 L (3.5-5.0) g/dL 04/26/24 Range/Units 11:38 RBC (4.30-5.90) m/uL Hgb (13.0-17.5) gm/dL Hct (39.0-53.0) % Plt Count (150-450) k/uL Lymphocytes # (1.0-4.8) k/uL APTT (22.0-30.0) sec Sodium (137-145) mmol/L Potassium (3.5-5.1) mmol/L BUN (9-20) mg/dL Creatinine (0.66-1.25) mg/dL Glucose (74-99) mg/dL Calcium (8.4-10.2) mg/dL AST (17-59) U/L Alkaline Phosphatase (38-126) U/L Troponin I 0.057 H* (0.000-0.034) ng/mL Total Protein (6.3-8.2) g/dL Albumin (3.5-5.0) g/dL Assessment and Plan Assessment: Swallowing difficulty with low appetite and frequent nausea vomiting, Weight loss secondary to above, failure to thrive Acute kidney injury on chronic kidney disease stage III Nausea vomiting Metabolic encephalopathy on dementia probably Diabetes mellitus Hypertension Hyperlipidemia History of osteoarthritis Hypothyroidism Due for leukemia on imatinib Bicytopenia Plan: Continue with gentle hydration Lasix and hydrochlorothiazide Continue with insulin sliding scale Swallow evaluation Monitor troponin unlikely cardiac cause Monitor electrolytes Labs and medication were reviewed.. Continue same treatment. Continue with symptomatic treatment. Resume home medication. Monitor lytes and vitals. DVT and GI prophylaxis. Further recommendations depends on the clinical course of the patient DVT prophylaxis: Subcutaneous heparin GI Prophylaxis: Pepcid Prognosis is guarded
[2024-04-26] MEDS ORDERED: Potassium Replacement Protocol 1 EACH MISC MISCELLANE PRN (21:14)
[2024-04-26] MEDS ORDERED: DEXTROSE 50% SYRINGE 50 ML IVP PRN ×2 (21:20)
[2024-04-26] MEDS: FAMOTIDINE 20 MG/2 ML VIAL IV SCH (21:43)
[2024-04-26] MEDS: HEPARIN SODIUM,PORCINE 5,000 UNIT/ML 1 ML VIAL SQ SCH (21:43)
[2024-04-26] MEDS: IMATINIB MESYLATE 100 MG PO SCH (21:44)
[2024-04-26] MEDS: ATORVASTATIN 10 MG TAB PO SCH (21:44)
[2024-04-26] MEDS: SUCRALFATE 1 GM TAB PO SCH (21:44)
[2024-04-26 22:33] LABS: Appearance,Urine Clear (Clear); Bacteria,Urine Rare /hpf; Bilirubin,Urine Negative (Negative); Blood,Urine Trace (Negative); Color,Urine Colorless; Glucose,Urine (UA) Negative (Negative); Hyaline Casts,Urine 12 /lpf (0-2); Ketones,Urine Negative (Negative); Leukocyte Esterase,Urine Moderate (Negative); Nitrite,Urine Negative (Negative); Protein,Urine Negative (Negative); RBC,Urine 6 /hpf (0-5); Squamous Epithelial Cell,Urine <1 /hpf (0-4); Urobilinogen,Urine <2.0 mg/dL (<2.0); WBC,Urine 4 /hpf (0-5)
[2024-04-27 02:02] LABS: Glucose,Whole Blood 113 mg/dL (70-110)
[2024-04-27] MEDS: INSULIN ASPART (NovoLOG) 100 UNIT/ML VIAL SQ SCH (06:09)
[2024-04-27 06:11] LABS: Glucose,Whole Blood 98 mg/dL (70-110)
[2024-04-27] MEDS: TAMSULOSIN 0.4 MG CAP.ER.24H PO SCH (08:46)
[2024-04-27] MEDS: amLODIPine 10 MG TAB PO SCH (08:46)
[2024-04-27] MEDS: DULoxetine HCL 60 MG CAPSULE.DR PO SCH (08:46)
[2024-04-27] MEDS: LIDOCAINE 4% PATCH TOPICAL SCH (08:47)
[2024-04-27] MEDS: LEVOTHYROXINE 50 MCG TAB PO SCH (08:49)
[2024-04-27] MEDS: POTASSIUM CITRATE 10 MEQ TABLET.ER PO SCH (08:51)
[2024-04-27 09:01] LABS: African American GFR (CKD) 27 (>60 ml/min/1.73 sqM); Anion Gap 5 mmol/L; Calcium 8.3 mg/dL (8.4-10.2); Carbon Dioxide 22 mmol/L (22-30); Chloride 108 mmol/L (98-107); Glucose 94 mg/dL (74-99); Non-African American GFR(CKD) 24 (>60 ml/min/1.73 sqM); Sodium 135 mmol/L (137-145)
[2024-04-27 09:23] LABS: Blood Urea Nitrogen 142 mg/dL (9-20); Magnesium 2.2 mg/dL (1.6-2.3); Potassium 4.2 mmol/L (3.5-5.1)
[2024-04-27 09:50] LABS: HCT 34.1 % (39.0-53.0); HGB 10.9 gm/dL (13.0-17.5); MCH 29.8 pg (25.0-35.0); MCHC 31.9 g/dL (31.0-37.0); MCV 93.2 fL (80.0-100.0); Mean Platelet Volume 9.3; Neutrophils % (A) 63 %; Platelet Count 117 k/uL (150-450); RBC 3.65 m/uL (4.30-5.90); RDW 14.7 % (11.5-15.5); WBC 4.4 k/uL (3.8-10.6)
[2024-04-27 09:51] LABS: Basophils % (A) 0 %; Eosinophils # (A) 0.2 k/uL (0-0.7); Eosinophils % (A) 5 %; Lymphocytes # (A) 0.8 k/uL (1.0-4.8); Lymphocytes % (A) 18 %; Monocytes # (A) 0.5 k/uL (0-1.0); Monocytes % (A) 11 %; Neutrophils # (A) 2.7 k/uL (1.3-7.7)
[2024-04-27 11:51] LABS: Appearance,Urine Clear (Clear); Bilirubin,Urine Negative (Negative); Blood,Urine Negative (Negative); Color,Urine Colorless; Glucose,Urine (UA) Negative (Negative); Hyaline Casts,Urine 4 /lpf (0-2); Ketones,Urine Negative (Negative); Leukocyte Esterase,Urine Small (Negative); Nitrite,Urine Negative (Negative); Protein,Urine Negative (Negative); Specific Gravity,Urine 1.012 (1.001-1.035); WBC,Urine 4 /hpf (0-5)
[2024-04-27 11:52] LABS: Glucose,Whole Blood 167 mg/dL (70-110)
--- NOTE | 2024-04-27 13:45 | P.CRDCN ---
History of Present Illness Consult date: 04/27/24 Reason for Consult (text): Evaded troponins History of present illness: This is a 73-year-old male patient of Dr. 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 We have been asked to evaluate the patient for elevated troponin. Most of the history is obtained from the patient's . Patient is currently at [facility] and was not eating very well. He would have 2 bites of food and then had vomiting. At home he was receiving Carafate before each meal but this was not being done at the assisted and he continued to be unable to hold any food down. Patient denies having any chest pain or pressure. Blood pressure 130/63, heart rate 83, pulse ox 98% on room air, afebrile. EKG: Sinus rhythm with IVCD Chest x-ray: Low lung volumes with generalized hazy appearance which could represent atelectasis versus pulmonary edema. Laboratory studies: WBC 4.4, hemoglobin 10.9, platelet count 117. Sodium 135, potassium 4.2. Potassium initially 2.5 and has been replaced. BUN 142 and creatinine 2.55. Troponin 0.057 and 0.056. Home cardiac medications: Amlodipine 10 mg daily, Lasix 40 mg twice daily, hydralazine 75 mg 3 times daily, hydrochlorothiazide 25 mg daily, magnesium oxide 400 mg daily, potassium chloride 10 mill equivalents daily, simvastatin 10 mg at bedtime. Echocardiogram performed on 03/27/2024 reveals EF 55 to 60%. Review Of Systems: At the time of my exam: CONSTITUTIONAL: Denies fever or chills. Reports generalized weakness HEENT: Denies blurred vision, vision changes, or eye pain. Denies hemoptysis CARDIOVASCULAR: Denies chest pain. Denies orthopnea. Denies PND. Denies palpitations RESPIRATORY: Denies shortness of breath. GASTROINTESTINAL: Denies abdominal pain. Reports vomiting. Unable to keep food down HEMATOLOGIC: Denies bleeding disorders. GENITOURINARY: Denies any blood in urine. SKIN: Denies puritis. Denies rash. Physical examination: Gen: This is a ill-appearing 73-year-old male in no acute respiratory distress. Systolic VS: reviewed HEENT: Head is atraumatic, normocephalic. Pupils equal, round. Sclerae is anicteric. NECK: Supple. No JVD. LUNGS: Clear to auscultation. No wheezes or rhonchi. No intercostal retractions. HEART: Regular rate and rhythm. No murmur. ABDOMEN: Soft No tenderness. EXTREMITIES: No pedal edema. No calf tenderness. NEUROLOGICAL: Patient is awake, alert and oriented x3. Assessment: Acute kidney injury Severe hypokalemia Elevated flat troponins noncardiac, no cardiac injury/ischemia, elevated troponins due to acute kidney injury/chronic kidney disease Failure to thrive Chronic kidney disease stage IV CML History of CVA Plan: Replace electrolytes as indicated Continue telemetry monitoring due to electrolyte imbalances No need to repeat echocardiogram Cardiology will sign off this case and follow on an as-needed basis. Please reconsult for any new concerns. Patient may follow-up in the office in one to [address] Martino. Thank you kindly for this consultation. Nurse practitioner note has been reviewed, I agree with documented findings and plan of care. Patient was seen and examined. Past Medical History Past Medical History: Asthma, Cancer, Diabetes Mellitus, GERD/Reflux, Hyperlipidemia, Hypertension, Osteoarthritis (OA), Pneumonia, Renal Disease, Sleep Apnea/CPAP/BIPAP Additional Past Medical History / Comment(s): [place] leukemia recently diagnosed and started oral chemo 10/10/19, IDDM type II, pt states he occasionally has hypoglycemia during middle of night, arthritis bilateral hands and occasionally in bilateral knees, gout R foot, WILLAM with Cpap use, chronic ki dney disease stage 4 with baseline creatinine near 2 due to diabetic kidney disease and chronic interstitial nephritis, anemia History of Any Multi-Drug Resistant Organisms: ESBL Date of last positivie culture/infection: 03/28/24 MDRO Source:: urine Past Surgical History: Cholecystectomy, Hernia Repair Additional Past Surgical History / Comment(s): 09/2019 bone marrow biopsy, incisional hernia, colonoscopy with benign polyps. Right cataract removal with IOL implant. PARATHYROIDECTOMY - July 2023 Past Anesthesia/Blood Transfusion Reactions: No Reported Reaction Past Psychological History: No Psychological Hx Reported Smoking Status: Former smoker Past Alcohol Use History: None Reported Past Drug Use History: None Reported - Past Family History Father Family Medical History: Diabetes Mellitus Additional Family Medical History / Comment(s): Father is 97 yrs old. Mother Family Medical History: Dementia Additional Family Medical History / Comment(s): Mother of dementia at the age of 85yrs. Medications and Allergies Home Medications Medication Instructions Recorded Confirmed Type Colchicine [Colcrys] 0.6 mg PO DAILY 04/12/23 04/26/24 History Famotidine 20 mg PO BID 04/12/23 04/26/24 History Febuxostat [Uloric] 40 mg PO DAILY 04/12/23 04/26/24 History Simvastatin [Zocor] 10 mg PO HS 04/12/23 04/26/24 History Acetaminophen Tab [Tylenol] 650 mg PO Q6H PRN 03/26/24 04/26/24 History DULoxetine HCL [Cymbalta] 60 mg PO DAILY 03/26/24 04/26/24 History Furosemide [Lasix] 40 mg PO BID 03/26/24 04/26/24 History Imatinib Mesylate 300 mg PO HS 03/26/24 04/26/24 History Levothyroxine Sodium 50 mcg PO DAILY 03/26/24 04/26/24 History Lidocaine 4% Patch 1 patch TRANSDERM DAILY 03/26/24 04/26/24 History Magnesium Oxide [Magox 400] 400 mg PO DAILY 03/26/24 04/26/24 History Potassium Chloride 10 meq PO DAILY 03/26/24 04/26/24 History Pregabalin [Lyrica] 100 mg PO BID 03/26/24 04/26/24 History Tamsulosin [Flomax] 0.4 mg PO DAILY 03/26/24 04/26/24 History amLODIPine 10 mg PO DAILY 03/26/24 04/26/24 History bisacodyL [Dulcolax] 10 mg RECTAL DAILY PRN 03/26/24 04/26/24 History hydrALAZINE HCL [Apresoline] 25 mg PO Q8HR@0500,1300,2100 03/26/24 04/26/24 History hydrALAZINE HCL [Apresoline] 50 mg PO Q8HR@0500,1300,2100 03/26/24 04/26/24 History hydroCHLOROthiazide [Hydrodiuril] 25 mg PO DAILY 03/26/24 04/26/24 History rOPINIRole HCL [Requip] 1 mg PO HS 03/26/24 04/26/24 History Baclofen 5 mg PO Q8H PRN 04/26/24 04/26/24 History Darbepoetin Bo [Aranesp] 60 mcg SQ Q14D 04/26/24 04/26/24 History Imipenem/Cilastatin Sodium 500 mg IV Q6H 04/26/24 04/26/24 History [Primaxin] Insulin Detemir [Levemir Flexpen] 26 unit SQ DAILY 04/26/24 04/26/24 History Insulin Lispro [Insulin Lispro 9 unit SQ AC-TID 04/26/24 04/26/24 History Kwikpen U-100] Naloxone HCl [Narcan] 4 mg NASAL DIRECTED PRN 04/26/24 04/26/24 History Ondansetron [Zofran] 4 mg PO Q6H PRN 04/26/24 04/26/24 History Prostat 30 ml PO BID 04/26/24 04/26/24 History Sucralfate [Carafate] 1 gm PO ACHS 04/26/24 04/26/24 History traMADol HCL 50 mg PO Q6H PRN 04/26/24 04/26/24 History Allergies Allergy/AdvReac Type Severity Reaction Status Date / Time TACOS Inhibitors Allergy Unknown Verified 04/26/24 13:12 codeine Allergy Unknown Verified 04/26/24 13:12 lisinopril Allergy Unknown Verified 04/26/24 13:12 oxycodone Allergy Unknown Verified 04/26/24 13:12 sulfamethoxazole Allergy Unknown Verified 04/26/24 13:12 [From Bactrim] trimethoprim [From Bactrim] Allergy Unknown Verified 04/26/24 13:12 TIDE LAUNDRY SOAP Allergy Severe Rash/Hives Uncoded 04/26/24 11:16 Physical Exam Vitals: Vital Signs Temp Pulse Pulse Resp BP BP Pulse Ox 04/27/24 11:22 97.6 F 83 16 130/63 98 04/27/24 08:45 97.5 F L 89 16 129/61 97 04/27/24 03:53 97.8 F 85 16 127/63 97 04/26/24 23:55 97.6 F 86 18 133/67 98 04/26/24 20:00 97.5 F L 82 18 128/64 98 04/26/24 17:16 97.8 F 79 18 123/68 99 04/26/24 16:00 80 18 142/96 94 L 04/26/24 15:00 86 18 136/68 04/26/24 14:30 82 18 136/68 04/26/24 14:00 84 18 134/72 04/26/24 13:30 80 18 136/72 04/26/24 13:00 86 18 123/71 04/26/24 12:30 80 18 114/73 97 Intake and Output 04/26/24 04/27/24 04/27/24 22:59 06:59 14:59 Intake Total 70 118 Output Total 750 750 950 Balance -713 -959 -997 Intake: IV 10 Invasive Line 2 10 Oral 60 118 Output: Urine 750 750 950 Other: Voiding Method Indwelling Catheter Indwelling Catheter Indwelling Catheter # Bowel Movements 1 Weight 117.934 kg 122.5 kg Results 04/27/24 09:34 04/27/24 07:59 Cardiac Enzymes 04/26/24 04/26/24 04/26/24 Range/Units 11:38 11:38 20:46 AST 113 H (17-59) U/L Troponin I 0.057 H* 0.056 H* (0.000-0.034) ng/mL Coagulation 04/26/24 Range/Units 11:38 PT 11.6 (10.0-12.5) sec APTT 33.6 H (22.0-30.0) sec CBC 04/27/24 Range/Units 09:34 WBC 4.4 (3.8-10.6) k/uL RBC 3.65 L (4.30-5.90) m/uL Hgb 10.9 L (13.0-17.5) gm/dL Hct 34.1 L (39.0-53.0) % Plt Count 117 L (150-450) k/uL Comprehensive Metabolic Panel 04/26/24 04/26/24 04/27/24 Range/Units 11:38 20:46 07:59 Sodium 133 L 135 L (137-145) mmol/L Potassium 2.5 L* 2.6 L* 4.2 (3.5-5.1) mmol/L Chloride 99 108 H (98-107) mmol/L Carbon Dioxide 29 22 (22-30) mmol/L BUN 157 H* 142 H* (9-20) mg/dL Creatinine 2.81 H 2.55 H (0.66-1.25) mg/dL Glucose 133 H 94 (74-99) mg/dL Calcium 8.1 L 8.3 L (8.4-10.2) mg/dL AST 113 H (17-59) U/L ALT 48 (4-49) U/L Alkaline Phosphatase 241 H (38-126) U/L Total Protein 5.6 L (6.3-8.2) g/dL Albumin 2.7 L (3.5-5.0) g/dL Current Medications Generic Name Dose Route Start Last Admin Trade Name Freq PRN Reason Stop Dose Admin Acetaminophen 650 mg 04/26/24 12:56 Acetaminophen Tab 325 Mg Tab PO Q6HR PRN Mild Pain or Fever > 100.5 Amlodipine Besylate 10 mg 04/27/24 09:00 04/27/24 08:46 Amlodipine 10 Mg Tab PO 10 mg DAILY SAM Administration Atorvastatin Calcium 10 mg 04/26/24 21:00 04/26/24 21:44 Atorvastatin 10 Mg Tab PO 10 mg HS SAM Administration Dextrose/Water 25 ml 04/26/24 21:20 Dextrose 50% Syringe 50 Ml IVP PER PROTOCOL PRN Hypoglycemia Protocol Dextrose/Water 50 ml 04/26/24 21:20 Dextrose 50% Syringe 50 Ml IVP PER PROTOCOL PRN Hypoglycemia Protocol Duloxetine HCl 60 mg 04/27/24 09:00 04/27/24 08:46 Duloxetine Hcl 60 Mg Capsule. PO 60 mg DAILY SAM Administration Famotidine 20 mg 04/28/24 09:00 Famotidine 20 Mg Tab PO DAILY SAM Heparin Sodium (Porcine) 5,000 unit 04/26/24 21:00 04/27/24 08:47 Heparin Sodium,Porcine 5,000 Unit/Ml 1 Ml Vial SQ 5,000 unit Q12HR SAM Administration Sodium Chloride 1,000 mls @ 75 mls/hr 04/26/24 12:45 04/27/24 09:03 Saline 0.9% IV 75 mls/hr .[id number] SAM Administration Insulin Aspart 0 unit 04/27/24 07:30 04/27/24 12:04 Insulin Aspart (Novolog) 100 Unit/Ml Vial SQ 1 unit ACHS SAM Administration Protocol Levothyroxine Sodium 50 mcg 04/27/24 09:00 04/27/24 08:49 Levothyroxine 50 Mcg Tab PO 50 mcg DAILY SAM Administration Lidocaine 1 patch 04/27/24 09:00 04/27/24 08:47 Lidocaine 4% Patch TOPICAL 1 patch DAILY SAM Administration Protocol Miscellaneous Information 1 each 04/26/24 21:14 Potassium Replacement Protocol 1 Each Misc MISCELLANE DAILY PRN Per Protocol Protocol Naloxone HCl 0.2 mg 04/26/24 12:56 Naloxone 0.4 Mg/Ml 1 Ml Vial IV Q2M PRN Opioid Reversal Non-Formulary Medication 300 mg 04/26/24 21:00 04/26/24 21:44 Imatinib Mesylate [Imatinib Mesylate] PO Not Given HS SAM Ondansetron HCl 4 mg 04/26/24 20:46 Ondansetron 4 Mg Tab PO Q6H PRN Nausea And Vomiting Potassium Citrate 10 meq 04/27/24 09:00 04/27/24 08:51 Potassium Citrate 10 Meq Tablet.Er PO 10 meq DAILY SAM Administration Sucralfate 1 gm 04/26/24 21:00 04/27/24 12:04 Sucralfate 1 Gm Tab PO 1 gm ACHS SAM Administration Tamsulosin HCl 0.4 mg 04/27/24 09:00 04/27/24 08:46 Tamsulosin 0.4 Mg Cap.Er.24h PO 0.4 mg DAILY SAM Administration Tramadol HCl 50 mg 04/26/24 20:46 Tramadol 50 Mg Tab PO Q6H PRN Pain Intake and Output 04/26/24 04/27/24 04/27/24 22:59 06:59 14:59 Intake Total 70 118 Output Total 750 750 950 Balance -449 -190 -468 Intake: IV 10 Invasive Line 2 10 Oral 60 118 Output: Urine 750 750 950 Other: Voiding Method Indwelling Catheter Indwelling Catheter Indwelling Catheter # Bowel Movements 1 Weight 117.934 kg 122.5 kg 04/27/24 09:34 04/27/24 07:59
--- NOTE | 2024-04-27 13:48 | XR ---
EXAMINATION TYPE: XR knee complete RT DATE OF EXAM: 04/27/2024 1:01 PM CLINICAL INDICATION:Male, 73 years old with history of evaluate fracture displacement; [facility] COMPARISON: None. TECHNIQUE: XR knee complete RT; examined in Frontal, lateral and oblique projections. FINDINGS/IMPRESSION: 1. Distal right femur metadiaphysis fracture without definitive intra-articular extension. Medial di splacement/shortening present. 2. Moderate to severe degeneration changes of the knee with osteophyte formation joint space tearing .
--- NOTE | 2024-04-27 14:17 | P.NPCON ---
History of Present Illness - Reason for Consult Consult date: 04/27/24 - Chief Complaint Poor Appetite - History of Present Illness Patient is 73 yo male presenting from jail due to poor oral intake and confusion. Per he has been more confused over past few days and over last month noted to have hand jerking motion. He was been mainatined on his diuretics while at jail but has been refusing to eat or drink much as he was unable to keep food down. He presented to ED found to have slightly worsening renal function and admitted for further evaluation. Currently seen bedside awake but lethargic and seems mildly confused. History was obtained mainly form at bedside. Vital signs reviewed and stable General: NAD, lethargic, confused HEENT: Head is atraumatic, normocephalic NECK: Supple. No JVD. LUNGS: Clear to auscultation. No wheezes or rhonchi. No intercostal retractions. HEART: Regular rate and rhythm. No murmur. ABDOMEN: Soft No tenderness. EXTREMITIES: No pedal edema. No calf tenderness. NEUROLOGICAL: Patient is awake, alert and oriented x2. Review of Systems ROS unobtainable: due to mental status Past Medical History Past Medical History: Asthma, Cancer, Diabetes Mellitus, GERD/Reflux, Hyperlipidemia, Hypertension, Osteoarthritis (OA), Pneumonia, Renal Disease, Sleep Apnea/CPAP/BIPAP Additional Past Medical History / Comment(s): [place] leukemia recently diagnosed and started oral chemo 10/10/19, IDDM type II, pt states he occasionally has hypoglycemia during middle of night, arthritis bilateral hands and occasionally in bilateral knees, gout R foot, WILLAM with Cpap use, chronic kidney disease stage 4 with baseline creatinine near 2 due to diabetic kidney disease and chronic interstitial nephritis, anemia History of Any Multi-Drug Resistant Organisms: ESBL Date of last positivie culture/infection: 03/28/24 MDRO Source:: urine Past Surgical History: Cholecystectomy, Hernia Repair Additional Past Surgical History / Comment(s): 09/2019 bone marrow biopsy, incisional hernia, colonoscopy with benign polyps. Right cataract removal with IOL implant. PARATHYROIDECTOMY - July 2023 Past Anesthesia/Blood Transfusion Reactions: No Reported Reaction Past Psychological History: No Psychological Hx Reported Smoking Status: Former smoker Past Alcohol Use History: None Reported Past Drug Use History: None Reported - Past Family History Father Family Medical History: Diabetes Mellitus Additional Family Medical History / Comment(s): Father is 97 yrs old. Mother Family Medical History: Dementia Additional Family Medical History / Comment(s): Mother of dementia at the age of 85yrs. Medications and Allergies Home Medications Medication Instructions Recorded Confirmed Type Colchicine [Colcrys] 0.6 mg PO DAILY 04/12/23 04/26/24 History Famotidine 20 mg PO BID 04/12/23 04/26/24 History Febuxostat [Uloric] 40 mg PO DAILY 04/12/23 04/26/24 History Simvastatin [Zocor] 10 mg PO HS 04/12/23 04/26/24 History Acetaminophen Tab [Tylenol] 650 mg PO Q6H PRN 03/26/24 04/26/24 History DULoxetine HCL [Cymbalta] 60 mg PO DAILY 03/26/24 04/26/24 History Furosemide [Lasix] 40 mg PO BID 03/26/24 04/26/24 History Imatinib Mesylate 300 mg PO HS 03/26/24 04/26/24 History Levothyroxine Sodium 50 mcg PO DAILY 03/26/24 04/26/24 History Lidocaine 4% Patch 1 patch TRANSDERM DAILY 03/26/24 04/26/24 History Magnesium Oxide [Magox 400] 400 mg PO DAILY 03/26/24 04/26/24 History Potassium Chloride 10 meq PO DAILY 03/26/24 04/26/24 History Pregabalin [Lyrica] 100 mg PO BID 03/26/24 04/26/24 History Tamsulosin [Flomax] 0.4 mg PO DAILY 03/26/24 04/26/24 History amLODIPine 10 mg PO DAILY 03/26/24 04/26/24 History bisacodyL [Dulcolax] 10 mg RECTAL DAILY PRN 03/26/24 04/26/24 History hydrALAZINE HCL [Apresoline] 25 mg PO Q8HR@0500,1300,2100 03/26/24 04/26/24 History hydrALAZINE HCL [Apresoline] 50 mg PO Q8HR@0500,1300,2100 03/26/24 04/26/24 History hydroCHLOROthiazide [Hydrodiuril] 25 mg PO DAILY 03/26/24 04/26/24 History rOPINIRole HCL [Requip] 1 mg PO HS 03/26/24 04/26/24 History Baclofen 5 mg PO Q8H PRN 04/26/24 04/26/24 History Darbepoetin Bo [Aranesp] 60 mcg SQ Q14D 04/26/24 04/26/24 History Imipenem/Cilastatin Sodium 500 mg IV Q6H 04/26/24 04/26/24 History [Primaxin] Insulin Detemir [Levemir Flexpen] 26 unit SQ DAILY 04/26/24 04/26/24 History Insulin Lispro [Insulin Lispro 9 unit SQ AC-TID 04/26/24 04/26/24 History Kwikpen U-100] Naloxone HCl [Narcan] 4 mg NASAL DIRECTED PRN 04/26/24 04/26/24 History Ondansetron [Zofran] 4 mg PO Q6H PRN 04/26/24 04/26/24 History Prostat 30 ml PO BID 04/26/24 04/26/24 History Sucralfate [Carafate] 1 gm PO ACHS 04/26/24 04/26/24 History traMADol HCL 50 mg PO Q6H PRN 04/26/24 04/26/24 History Allergies Allergy/AdvReac Type Severity Reaction Status Date / Time TACOS Inhibitors Allergy Unknown Verified 04/26/24 13:12 codeine Allergy Unknown Verified 04/26/24 13:12 lisinopril Allergy Unknown Verified 04/26/24 13:12 oxycodone Allergy Unknown Verified 04/26/24 13:12 sulfamethoxazole Allergy Unknown Verified 04/26/24 13:12 [From Bactrim] trimethoprim [From Bactrim] Allergy Unknown Verified 04/26/24 13:12 TIDE LAUNDRY SOAP Allergy Severe Rash/Hives Uncoded 04/26/24 11:16 Physical Exam Vitals: Vital Signs Temp Pulse Pulse Resp BP BP Pulse Ox 04/27/24 11:22 97.6 F 83 16 130/63 98 04/27/24 08:45 97.5 F L 89 16 129/61 97 04/27/24 03:53 97.8 F 85 16 127/63 97 04/26/24 23:55 97.6 F 86 18 133/67 98 04/26/24 20:00 97.5 F L 82 18 128/64 98 04/26/24 17:16 97.8 F 79 18 123/68 99 04/26/24 16:00 80 18 142/96 94 L 04/26/24 15:00 86 18 136/68 04/26/24 14:30 82 18 136/68 Intake and Output 04/26/24 04/27/24 04/27/24 22:59 06:59 14:59 Intake Total 70 118 Output Total 750 750 950 Balance -064 -419 -236 Intake: IV 10 Invasive Line 2 10 Oral 60 118 Output: Urine 750 750 950 Other: Voiding Method Indwelling Catheter Indwelling Catheter Indwelling Catheter # Bowel Movements 1 Weight 117.934 kg 122.5 kg 122.5 kg Results - Lab Results Most recent lab results Calcium 8.3 mg/dL (8.4-10.2) L 04/27/24 07:59 Magnesium 2.2 mg/dL (1.6-2.3) 04/27/24 07:59 04/27/24 09:34 04/27/24 07:59 Assessment and Plan Assessment: 1. Acute kidney injury secondary to ATN secondary to diuresis. Creatinine 2.81 on admission, improved to 2.5 today. Ua showed hyaline casts. 2. Chronic kidney disease stage IV with baseline creatinine near 2 secondary to diabetic kidney disease and chronic interstitial nephritis. 3. Hypokalemia from diuresis. Replaced. Improved. 4. Metablic encephalopathy, possibly related to Lyrica use in advanced CKD 5. Hypertension with chronic kidney disease. Stable. 6. Anemia of chronic kidney disease. Hemoglobin at goal 7. Primary hyperparathyroidism status post parathyroidectomy. Calcium level normal. Plan: Continue with IVF for now Hold Lasix Montitor and replace potassium as needed. May need to decrease Lyrica dose with level of CKD, stated episodes of asterixis past month along with mentation changes Daily, BMP, strict I/O's
[2024-04-27 17:06] LABS: Glucose,Whole Blood 149 mg/dL (70-110)
--- NOTE | 2024-04-27 17:14 | P.CNOR ---
History of Present Illness - [facility] Consult date: 04/27/24 History of present illness: The patient is a 73-year-old male with multiple medical problems who is presently admitted to internal medicine with failure to thrive and acute renal failure. Briefly the patient has been in a custodial since October after spine surgery. He sustained a fall at the beginning of March resulting in a nondisplaced right distal femur fracture. He was admitted to internal medicine at that time. I was consulted and saw the patient on March 27. His x-rays and computed tomography scan showed a minimally displaced fracture. I recommended nonsurgical treatment due to the patient's multiple medical issues. Following discharge the patient had difficulty coming in to my office for follow-up. The patient was essentially bedbound and required a lift to get out of bed. Suboptimal x-rays were taken at the custodial which showed some displacement. I had several long discussions with the patient's over the phone on treatment. I felt that he was a very high risk for having a complication from surgery due to his multiple medical issues. After discussion with the patient's her expectations were that he would make a full recovery. I recommended getting a second opinion from an orthopedic trauma surgeon. The patient was then admitted to internal medicine. Past Medical History Past Medical History: Asthma, Cancer, Diabetes Mellitus, GERD/Reflux, Hyperlipidemia, Hypertension, Osteoarthritis (OA), Pneumonia, Renal Disease, Sleep Apnea/CPAP/BIPAP Additional Past Medical History / Comment(s): [place] leukemia recently diagnosed and started oral chemo 10/10/19, IDDM type II, pt states he occasionally has hypoglycemia during middle of night, arthritis bilateral hands and occasionally in bilateral knees, gout R foot, WILLAM with Cpap use, chronic kidney disease stage 4 with baseline creatinine near 2 due to diabetic kidney disease and chronic interstitial nephritis, anemia History of Any Multi-Drug Resistant Organisms: ESBL Year Discovered:: 03/28/24 MDRO Source:: urine Past Surgical History: Cholecystectomy, Hernia Repair Additional Past Surgical History / Comment(s): 09/2019 bone marrow biopsy, incisional hernia, colonoscopy with benign polyps. Right cataract removal with IOL implant. PARATHYROIDECTOMY - July 2023 Past Anesthesia/Blood Transfusion Reactions: No Reported Reaction Past Psychological History: No Psychological Hx Reported Smoking Status: Former smoker Past Alcohol Use History: None Reported Past Drug Use History: None Reported - Past Family History Father Family Medical History: Diabetes Mellitus Additional Family Medical History / Comment(s): Father is 97 yrs old. Mother Family Medical History: Dementia Additional Family Medical History / Comment(s): Mother of dementia at the age of 85yrs. Medications and Allergies Home Medications Medication Instructions Recorded Confirmed Type Colchicine [Colcrys] 0.6 mg PO DAILY 04/12/23 04/26/24 History Famotidine 20 mg PO BID 04/12/23 04/26/24 History Febuxostat [Uloric] 40 mg PO DAILY 04/12/23 04/26/24 History Simvastatin [Zocor] 10 mg PO HS 04/12/23 04/26/24 History Acetaminophen Tab [Tylenol] 650 mg PO Q6H PRN 03/26/24 04/26/24 History DULoxetine HCL [Cymbalta] 60 mg PO DAILY 03/26/24 04/26/24 History Furosemide [Lasix] 40 mg PO BID 03/26/24 04/26/24 History Imatinib Mesylate 300 mg PO HS 03/26/24 04/26/24 History Levothyroxine Sodium 50 mcg PO DAILY 03/26/24 04/26/24 History Lidocaine 4% Patch 1 patch TRANSDERM DAILY 03/26/24 04/26/24 History Magnesium Oxide [Magox 400] 400 mg PO DAILY 03/26/24 04/26/24 History Potassium Chloride 10 meq PO DAILY 03/26/24 04/26/24 History Pregabalin [Lyrica] 100 mg PO BID 03/26/24 04/26/24 History Tamsulosin [Flomax] 0.4 mg PO DAILY 03/26/24 04/26/24 History amLODIPine 10 mg PO DAILY 03/26/24 04/26/24 History bisacodyL [Dulcolax] 10 mg RECTAL DAILY PRN 03/26/24 04/26/24 History hydrALAZINE HCL [Apresoline] 25 mg PO Q8HR@0500,1300,2100 03/26/24 04/26/24 History hydrALAZINE HCL [Apresoline] 50 mg PO Q8HR@0500,1300,2100 03/26/24 04/26/24 History hydroCHLOROthiazide [Hydrodiuril] 25 mg PO DAILY 03/26/24 04/26/24 History rOPINIRole HCL [Requip] 1 mg PO HS 03/26/24 04/26/24 History Baclofen 5 mg PO Q8H PRN 04/26/24 04/26/24 History Darbepoetin Bo [Aranesp] 60 mcg SQ Q14D 04/26/24 04/26/24 History Imipenem/Cilastatin Sodium 500 mg IV Q6H 04/26/24 04/26/24 History [Primaxin] Insulin Detemir [Levemir Flexpen] 26 unit SQ DAILY 04/26/24 04/26/24 History Insulin Lispro [Insulin Lispro 9 unit SQ AC-TID 04/26/24 04/26/24 History Kwikpen U-100] Naloxone HCl [Narcan] 4 mg NASAL DIRECTED PRN 04/26/24 04/26/24 History Ondansetron [Zofran] 4 mg PO Q6H PRN 04/26/24 04/26/24 History Prostat 30 ml PO BID 04/26/24 04/26/24 History Sucralfate [Carafate] 1 gm PO ACHS 04/26/24 04/26/24 History traMADol HCL 50 mg PO Q6H PRN 04/26/24 04/26/24 History Allergies Allergy/AdvReac Type Severity Reaction Status Date / Time TACOS Inhibitors Allergy Unknown Verified 04/26/24 13:12 codeine Allergy Unknown Verified 04/26/24 13:12 lisinopril Allergy Unknown Verified 04/26/24 13:12 oxycodone Allergy Unknown Verified 04/26/24 13:12 sulfamethoxazole Allergy Unknown Verified 04/26/24 13:12 [From Bactrim] trimethoprim [From Bactrim] Allergy Unknown Verified 04/26/24 13:12 TIDE LAUNDRY SOAP Allergy Severe Rash/Hives Uncoded 04/26/24 11:16 Physical Examination The patient is resting in bed. He will awaken to verbal command but is confused. He thinks he is [place]. His abdomen is obese. A knee immobilizer is in place on the right leg. This was taken down and there is mild swelling and minimal tenderness over the knee. Results X-rays today show interval displacement of the right intra-articular distal femur fracture when compared to his x-rays and computed tomography scan in early March 2024. - Labs Labs: Abnormal Lab Results - Last 24 Hours (Table) 04/26/24 04/26/24 04/26/24 Range/Units 20:05 20:46 20:46 RBC (4.30-5.90) m/uL Hgb (13.0-17.5) gm/dL Hct (39.0-53.0) % Plt Count (150-450) k/uL Lymphocytes # (1.0-4.8) k/uL Sodium (137-145) mmol/L Potassium 2.6 L* (3.5-5.1) mmol/L Chloride (98-107) mmol/L BUN (9-20) mg/dL Creatinine (0.66-1.25) mg/dL POC Glucose (mg/dL) 125 H (70-110) mg/dL Hemoglobin A1c (<=6.0) % Calcium (8.4-10.2) mg/dL Troponin I 0.056 H* (0.000-0.034) ng/mL Urine Blood (Negative) Ur Leukocyte Esterase (Negative) Urine RBC (0-5) /hpf Urine Bacteria (None) /hpf Hyaline Casts (0-2) /lpf 04/26/24 04/27/24 04/27/24 Range/Units 21:50 01:59 07:59 RBC (4.30-5.90) m/uL Hgb (13.0-17.5) gm/dL Hct (39.0-53.0) % Plt Count (150-450) k/uL Lymphocytes # (1.0-4.8) k/uL Sodium 135 L (137-145) mmol/L Potassium (3.5-5.1) mmol/L Chloride 108 H (98-107) mmol/L BUN 142 H* (9-20) mg/dL Creatinine 2.55 H (0.66-1.25) mg/dL POC Glucose (mg/dL) 113 H (70-110) mg/dL Hemoglobin A1c (<=6.0) % Calcium 8.3 L (8.4-10.2) mg/dL Troponin I (0.000-0.034) ng/mL Urine Blood Trace H (Negative) Ur Leukocyte Esterase Moderate H (Negative) Urine RBC 6 H (0-5) /hpf Urine Bacteria Rare H (None) /hpf Hyaline Casts 12 H (0-2) /lpf 04/27/24 04/27/24 04/27/24 Range/Units 09:34 09:34 11:24 RBC 3.65 L (4.30-5.90) m/uL Hgb 10.9 L (13.0-17.5) gm/dL Hct 34.1 L (39.0-53.0) % Plt Count 117 L (150-450) k/uL Lymphocytes # 0.8 L (1.0-4.8) k/uL Sodium (137-145) mmol/L Potassium (3.5-5.1) mmol/L Chloride (98-107) mmol/L BUN (9-20) mg/dL Creatinine (0.66-1.25) mg/dL POC Glucose (mg/dL) (70-110) mg/dL Hemoglobin A1c 6.4 H (<=6.0) % Calcium (8.4-10.2) mg/dL Troponin I (0.000-0.034) ng/mL Urine Blood (Negative) Ur Leukocyte Esterase Small H (Negative) Urine RBC (0-5) /hpf Urine Bacteria (None) /hpf Hyaline Casts 4 H (0-2) /lpf 04/27/24 Range/Units 11:51 RBC (4.30-5.90) m/uL Hgb (13.0-17.5) gm/dL Hct (39.0-53.0) % Plt Count (150-450) k/uL Lymphocytes # (1.0-4.8) k/uL Sodium (137-145) mmol/L Potassium (3.5-5.1) mmol/L Chloride (98-107) mmol/L BUN (9-20) mg/dL Creatinine (0.66-1.25) mg/dL POC Glucose (mg/dL) 167 H (70-110) mg/dL Hemoglobin A1c (<=6.0) % Calcium (8.4-10.2) mg/dL Troponin I (0.000-0.034) ng/mL Urine Blood (Negative) Ur Leukocyte Esterase (Negative) Urine RBC (0-5) /hpf Urine Bacteria (None) /hpf Hyaline Casts (0-2) /[facility] H & H 04/26/24 04/27/24 Range/Units 11:38 09:34 Hgb 11.8 L 10.9 L (13.0-17.5) gm/dL Hct 34.5 L 34.1 L (39.0-53.0) % Coagulation 04/26/24 Range/Units 11:38 INR 1.1 (<1.2) Result Diagrams: 04/27/24 09:34 04/27/24 07:59 Assessment and Plan Assessment: Subacute displaced intra-articular right distal femur fracture Multiple medical problems Plan: I had a long discussion with the patient's today both at bedside and at a computer to review his imaging. We discussed that at the time of his initial injury, due to his multiple medical problems and poor overall health to treat this fracture nonoperatively with serial x-rays. He was unable to follow up with me in the office after discharge from the hospital, but x-rays from a week ago showed displacement of his distal femur fracture. Our discussion over the phone at that time was to seek out a second opinion from an orthopedic trauma surgeon. Unfortunately they were unable to do this and he has now admitted to the hospital here. I still think that the patient is a very poor surgical candidate given his multiple medical issues. I discussed this with the patient's . Recommendation was to continue treating nonoperatively in an immobilizer. I also recommended if the family wishes to have a second opinion to follow up with Dr. Andrei Hernandez, orthopadic trauma surgeon, following discharge to discuss pros and cons of subacute fracture fixation of his distal femur fracture. We also briefly discussed me performing a total knee replacement with a distal femoral replacement given the patient's pre-existing arthritis and fracture pattern, but I think given the patient's multiple medical issues he would have an extremely high rate of complication, particularly infection. The patient's seem to have much more realistic expectations of the patient's current medical status and likely functional recovery. I still think would be in the family's best interest to at least seek out a second opinion following discharge. we will continue to follow while the patient is an inpatient. Time with Patient: Greater than 30
[2024-04-27 19:52] LABS: Glucose,Whole Blood 160 mg/dL (70-110)
--- NOTE | 2024-04-27 20:32 | P.PN ---
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 Patient states he came because of his low appetite no he is not eating. States also he vomited 8 times this morning no chest pain no abdominal pain Denies any urinary symptoms No headache or dizziness He is not working at baseline Has a Garcia with clear urine Hemodynamically stable Had febrile Potassium 2.5, sodium is mildly low creatinine slightly above baseline at 2.8 with patient Chronic kidney disease stage III Platelet count is mildly low at 33 and mildly anemic at 11.8. Troponin mildly elevated EKG showing normal sinus rhythm at [address]-T changes Chest x-ray showing lung volumes with atelectasis versus pulmonary edema KUB is negative for specific bowel gas obstructive pattern EKG from 03/2024 showing preserved ejection fraction 55 to 60% Patient was on Lasix and hydrochlorothiazide at home which were held Also is diabetic. Hold his Levemir 26 units at bedtime and NovoLog 9 units with meals Patient was started on normal saline 75 mL/h 04/27/2024 Patient is becoming more awake and stronger His dehydration is improving Diuretics remain on hold Continue with normal saline 75 mL/h Creatinine 2.5 today, down from 2.8 Potassium corrected 4.2. Sodium 135 which is slightly better from 133. describes myoclonic jerks most likely secondary to renal injury dehydration and improved with therapy. However no abnormal movements noted since admission. no Abnormal movements currently As per patient was able to eat little bit today Swallow evaluation is ordered was suspecting UTI however patient denies any urinary symptoms, neither currently nor before. No fever no leukocytosis. Currently antibiotics has more risk than benefit however patient at risk of UTI given his Garcia catheter and bedridden situation. Orthopedic team evaluated the patient for his right displaced femoral fracture, patient is not a good candidate for surgery per Dr. Camejo. Family are considering second opinion. He ate 25 to 50% Active Medications Generic Name Dose Route Start Last Admin Trade Name Freq PRN Reason Stop Dose Admin Acetaminophen 650 mg 04/26/24 12:56 Acetaminophen Tab 325 Mg Tab PO Q6HR PRN Mild Pain or Fever > 100.5 Amlodipine Besylate 10 mg 04/27/24 09:00 07/05/24 08:46 Amlodipine 10 Mg Tab PO 10 mg DAILY SAM Administration Atorvastatin Calcium 10 mg 04/26/24 21:00 04/27/24 20:17 Atorvastatin 10 Mg Tab PO 10 mg HS SAM Administration Dextrose/Water 25 ml 04/26/24 21:20 Dextrose 50% Syringe 50 Ml IVP PER PROTOCOL PRN Hypoglycemia Protocol Dextrose/Water 50 ml 04/26/24 21:20 Dextrose 50% Syringe 50 Ml IVP PER PROTOCOL PRN Hypoglycemia Protocol Duloxetine HCl 60 mg 04/27/24 09:00 04/27/24 08:46 Duloxetine Hcl 60 Mg Capsule.Dr PO 60 mg DAILY SAM Administration Famotidine 20 mg 04/28/24 09:00 Famotidine 20 Mg Tab PO DAILY SAM Heparin Sodium (Porcine) 5,000 unit 04/26/24 21:00 04/27/24 20:17 Heparin Sodium,Porcine 5,000 Unit/Ml 1 Ml Vial SQ 5,000 unit Q12HR SAM Administration Sodium Chloride 1,000 mls @ 75 mls/hr 04/26/24 12:45 04/27/24 09:03 Saline 0.9% IV 75 mls/hr .[id number] SAM Administration Insulin Aspart 0 unit 04/27/24 07:30 04/27/24 20:17 Insulin Aspart (Novolog) 100 Unit/Ml Vial SQ 1 unit ACHS SAM Administration Protocol Levothyroxine Sodium 50 mcg 04/27/24 09:00 04/27/24 08:49 Levothyroxine 50 Mcg Tab PO 50 mcg DAILY SAM Administration Lidocaine 1 patch 04/27/24 09:00 04/27/24 08:47 Lidocaine 4% Patch TOPICAL 1 patch DAILY SAM Administration Protocol Miscellaneous Information 1 each 04/26/24 21:14 Potassium Replacement Protocol 1 Each Misc MISCELLANE DAILY PRN Per Protocol Protocol Naloxone HCl 0.2 mg 04/26/24 12:56 Naloxone 0.4 Mg/Ml 1 Ml Vial IV Q2M PRN Opioid Reversal Non-Formulary Medication 300 mg 04/26/24 21:00 04/27/24 20:17 Imatinib Mesylate [Imatinib Mesylate] PO Not Given HS SAM Ondansetron HCl 4 mg 04/26/24 20:46 Ondansetron 4 Mg Tab PO Q6H PRN Nausea And Vomiting Potassium Citrate 10 meq 04/27/24 09:00 04/27/24 08:51 Potassium Citrate 10 Meq Tablet.Er PO 10 meq DAILY SAM Administration Sucralfate 1 gm 04/26/24 21:00 04/27/24 20:17 Sucralfate 1 Gm Tab PO 1 gm ACHS SAM Administration Tamsulosin HCl 0.4 mg 04/27/24 09:00 04/27/24 08:46 Tamsulosin 0.4 Mg Cap.Er.24h PO 0.4 mg DAILY SAM Administration Tramadol HCl 50 mg 04/26/24 20:46 Tramadol 50 Mg Tab PO Q6H PRN Pain Objective - Vital Signs Vital signs: Vital Signs Temp 97.6 F 04/27/24 20:24 Pulse 83 04/27/24 20:24 Resp 17 04/27/24 20:24 BP 139/65 04/27/24 20:24 Pulse Ox 96 04/27/24 20:24 FiO2 Intake & Output 04/27/24 04/27/24 04/28/24 06:59 18:59 06:59 Intake Total 10 718 Output Total 750 1850 Balance -740 -1132 Weight 122.5 kg 122.5 kg Intake: IV 10 Invasive Line 2 10 Oral 718 Output: Urine 750 1850 Other: Voiding Method Indwelling Catheter Indwelling Catheter # Bowel Movements 1 - Exam -GENERAL: The patient is alert and oriented x1-2 partially, not in any acute distress. Well developed, well nourished. Generally weak HEENT: Pupils are round and equally reacting to light. EOMI. No scleral icterus. No conjunctival pallor. Normocephalic, atraumatic. No pharyngeal erythema. No thyromegaly. CARDIOVASCULAR: S1 and S2 present. No murmurs, rubs, or gallops. PULMONARY: Chest is clear to auscultation, no wheezing , no crackles. ABDOMEN: Soft, nontender, nondistended, normoactive bowel sounds. No palpable organomegaly. MUSCULOSKELETAL: No joint swelling or deformity. EXTREMITIES: No cyanosis, clubbing, or pedal edema. NEUROLOGICAL: Gross neurological examination did not reveal any focal deficits. SKIN: No rashes. no petechiae. - Labs CBC & Chem 7: 04/27/24 09:34 04/27/24 07:59 Labs: Abnormal Lab Results - Last 24 Hours (Table) 04/26/24 04/26/24 04/26/24 Range/Units 20:46 20:46 21:50 RBC (4.30-5.90) m/uL Hgb (13.0-17.5) gm/dL Hct (39.0-53.0) % Plt Count (150-450) k/uL Lymphocytes # (1.0-4.8) k/uL Sodium (137-145) mmol/L Potassium 2.6 L* (3.5-5.1) mmol/L Chloride (98-107) mmol/L BUN (9-20) mg/dL Creatinine (0.66-1.25) mg/dL POC Glucose (mg/dL) (70-110) mg/dL Hemoglobin A1c (<=6.0) % Calcium (8.4-10.2) mg/dL Troponin I 0.056 H* (0.000-0.034) ng/mL Urine Blood Trace H (Negative) Ur Leukocyte Esterase Moderate H (Negative) Urine RBC 6 H (0-5) /hpf Urine Bacteria Rare H (None) /hpf Hyaline Casts 12 H (0-2) /lpf 04/27/24 04/27/24 04/27/24 Range/Units 01:59 07:59 09:34 RBC 3.65 L (4.30-5.90) m/uL Hgb 10.9 L (13.0-17.5) gm/dL Hct 34.1 L (39.0-53.0) % Plt Count 117 L (150-450) k/uL Lymphocytes # 0.8 L (1.0-4.8) k/uL Sodium 135 L (137-145) mmol/L Potassium (3.5-5.1) mmol/L Chloride 108 H (98-107) mmol/L BUN 142 H* (9-20) mg/dL Creatinine 2.55 H (0.66-1.25) mg/dL POC Glucose (mg/dL) 113 H (70-110) mg/dL Hemoglobin A1c (<=6.0) % Calcium 8.3 L (8.4-10.2) mg/dL Troponin I (0.000-0.034) ng/mL Urine Blood (Negative) Ur Leukocyte Esterase (Negative) Urine RBC (0-5) /hpf Urine Bacteria (None) /hpf Hyaline Casts (0-2) /lpf 04/27/24 04/27/24 04/27/24 Range/Units 09:34 11:24 11:51 RBC (4.30-5.90) m/uL Hgb (13.0-17.5) gm/dL Hct (39.0-53.0) % Plt Count (150-450) k/uL Lymphocytes # (1.0-4.8) k/uL Sodium (137-145) mmol/L Potassium (3.5-5.1) mmol/L Chloride (98-107) mmol/L BUN (9-20) mg/dL Creatinine (0.66-1.25) mg/dL POC Glucose (mg/dL) 167 H (70-110) mg/dL Hemoglobin A1c 6.4 H (<=6.0) % Calcium (8.4-10.2) mg/dL Troponin I (0.000-0.034) ng/mL Urine Blood (Negative) Ur Leukocyte Esterase Small H (Negative) Urine RBC (0-5) /hpf Urine Bacteria (None) /hpf Hyaline Casts 4 H (0-2) /lpf 04/27/24 04/27/24 Range/Units 17:05 19:48 RBC (4.30-5.90) m/uL Hgb (13.0-17.5) gm/dL Hct (39.0-53.0) % Plt Count (150-450) k/uL Lymphocytes # (1.0-4.8) k/uL Sodium (137-145) mmol/L Potassium (3.5-5.1) mmol/L Chloride (98-107) mmol/L BUN (9-20) mg/dL Creatinine (0.66-1.25) mg/dL POC Glucose (mg/dL) 149 H 160 H (70-110) mg/dL Hemoglobin A1c (<=6.0) % Calcium (8.4-10.2) mg/dL Troponin I (0.000-0.034) ng/mL Urine Blood (Negative) Ur Leukocyte Esterase (Negative) Urine RBC (0-5) /hpf Urine Bacteria (None) /hpf Hyaline Casts (0-2) /lpf Assessment and Plan Assessment: Swallowing difficulty with low appetite and frequent nausea vomiting, Weight loss secondary to above, failure to thrive Acute kidney injury on chronic kidney disease stage III Nausea vomiting Metabolic encephalopathy on dementia probably Diabetes mellitus Hypertension Hyperlipidemia History of osteoarthritis Hypothyroidism 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 Camejo. evaluated by orthopedic team Plan: Continue with gentle hydration Lasix and hydrochlorothiazide and hold Continue with insulin sliding scale Swallow evaluation Monitor troponin unlikely cardiac cause Monitor electrolytes Labs and medication were reviewed.. Continue same treatment. Continue with symptomatic treatment. Resume home medication. Monitor lytes and vitals. DVT and GI prophylaxis. Further recommendations depends on the clinical course of the patient DVT prophylaxis: Subcutaneous heparin GI Prophylaxis: Pepcid Prognosis is guarded
[2024-04-28 02:20] LABS: Glucose,Whole Blood 162 mg/dL (70-110)
[2024-04-28 06:04] LABS: Glucose,Whole Blood 130 mg/dL (70-110)
[2024-04-28 07:55] LABS: Basophils % (A) 0 %; Eosinophils # (A) 0.2 k/uL (0-0.7); Eosinophils % (A) 4 %; HCT 33.8 % (39.0-53.0); HGB 10.9 gm/dL (13.0-17.5); Lymphocytes # (A) 0.8 k/uL (1.0-4.8); Lymphocytes % (A) 23 %; MCH 30.2 pg (25.0-35.0); MCHC 32.4 g/dL (31.0-37.0); MCV 93.3 fL (80.0-100.0); Mean Platelet Volume 9.5; Monocytes # (A) 0.4 k/uL (0-1.0); Monocytes % (A) 11 %; Neutrophils # (A) 2.1 k/uL (1.3-7.7); Neutrophils % (A) 58 %; Platelet Count 107 k/uL (150-450); RBC 3.62 m/uL (4.30-5.90); RDW 14.6 % (11.5-15.5); WBC 3.6 k/uL (3.8-10.6)
[2024-04-28] MEDS: traMADol 50 MG TAB PO PRN (07:56)
[2024-04-28] MEDS: FAMOTIDINE 20 MG TAB PO SCH (07:58)
[2024-04-28 08:09] LABS: African American GFR (CKD) 34 (>60 ml/min/1.73 sqM); Anion Gap 4 mmol/L; Calcium 8.6 mg/dL (8.4-10.2); Carbon Dioxide 26 mmol/L (22-30); Chloride 107 mmol/L (98-107); Glucose 124 mg/dL (74-99); Non-African American GFR(CKD) 29 (>60 ml/min/1.73 sqM); Potassium 3.1 mmol/L (3.5-5.1); Sodium 137 mmol/L (137-145)
[2024-04-28 08:22] LABS: Blood Urea Nitrogen 113 mg/dL (9-20)
[2024-04-28] MEDS ORDERED: Potassium Replacement Protocol 1 EACH MISC MISCELLANE PRN (08:50)
[2024-04-28] MEDS: POTASSIUM CHLORIDE ER 20 MEQ TAB.ER PO ONE (10:13)
--- NOTE | 2024-04-28 11:44 | P.PN ---
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 Patient states he came because of his low appetite no he is not eating. States also he vomited 8 times this morning no chest pain no abdominal pain Denies any urinary symptoms No headache or dizziness He is not working at baseline Has a Garcia with clear urine Hemodynamically stable Had febrile Potassium 2.5, sodium is mildly low creatinine slightly above baseline at 2.8 with patient Chronic kidney disease stage III Platelet count is mildly low at 33 and mildly anemic at 11.8. Troponin mildly elevated EKG showing normal sinus rhythm at [address]-T changes Chest x-ray showing lung volumes with atelectasis versus pulmonary edema KUB is negative for specific bowel gas obstructive pattern EKG from 03/2024 showing preserved ejection fraction 55 to 60% Patient was on Lasix and hydrochlorothiazide at home which were held Also is diabetic. Hold his Levemir 26 units at bedtime and NovoLog 9 units with meals Patient was started on normal saline 75 mL/h 04/27/2024 Patient is becoming more awake and stronger His dehydration is improving Diuretics remain on hold Continue with normal saline 75 mL/h Creatinine 2.5 today, down from 2.8 Potassium corrected 4.2. Sodium 135 which is slightly better from 133. describes myoclonic jerks most likely secondary to renal injury dehydration and improved with therapy. However no abnormal movements noted since admission. no Abnormal movements currently As per patient was able to eat little bit today Swallow evaluation is ordered was suspecting UTI however patient denies any urinary symptoms, neither currently nor before. No fever no leukocytosis. Currently antibiotics has more risk than benefit however patient at risk of UTI given his Garcia catheter and bedridden situation. Orthopedic team evaluated the patient for his right displaced femoral fracture, patient is not a good candidate for surgery per Dr. Camejo. Family are considering second opinion. He ate 25 to 50% 04/28/2024 Patient tolerates diet well, he was encouraged to eat and drink. He passed swallow eval swallow evaluation. He is eating 25 to 50% of his diet. He did not need any Zofran or other antiemetics. Most likely patient comes with recurrent nausea vomiting suspected secondary to gastritis and irritation to the stomach. This has stopped since he came to the hospital. This could be also in part due to some of the medication like the imatinib which she was not taking it since admission because of nonformulary. He is getting IV fluid normal saline 75 mL/h and his creatinine keep improving down to 2.1. Which is close and getting closer to baseline. Also Lasix and hydrochlorothiazide are on hold. He does not require extra insulin. Elevated troponin are secondary to kidney disease, patient with no chest pain and echocardiogram showing preserved LV function. Also there is no evidence of UTI with no symptoms no fever no leukocytosis and repeat urine analysis showing improvement. Low potassium level has been replaced. Orthopedic team evaluated the patient for his distal right femur fracture and the plan to follow-up with Dr. Camejo as an outpatient with possible second opinion from the trauma surgeon Dr. Forbes. This plan discussed with the patient in details and he verbalized understanding and acceptance. Active Medications Generic Name Dose Route Start Last Admin Trade Name Freq PRN Reason Stop Dose Admin Acetaminophen 650 mg 04/26/24 12:56 Acetaminophen Tab 325 Mg Tab PO Q6HR PRN Mild Pain or Fever > 100.5 Amlodipine Besylate 10 mg 04/27/24 09:00 04/27/24 08:46 Amlodipine 10 Mg Tab PO 10 mg DAILY SAM Administration Atorvastatin Calcium 10 mg 04/26/24 21:00 04/27/24 20:17 Atorvastatin 10 Mg Tab PO 10 mg HS SAM Administration Dextrose/Water 25 ml 04/26/24 21:20 Dextrose 50% Syringe 50 Ml IVP PER PROTOCOL PRN Hypoglycemia Protocol Dextrose/Water 50 ml 04/26/24 21:20 Dextrose 50% Syringe 50 Ml IVP PER PROTOCOL PRN Hypoglycemia Protocol Duloxetine HCl 60 mg 04/27/24 09:00 04/27/24 08:46 Duloxetine Hcl 60 Mg Capsule. PO 60 mg DAILY SAM Administration Famotidine 20 mg 04/28/24 09:00 Famotidine 20 Mg Tab PO DAILY SAM Heparin Sodium (Porcine) 5,000 unit 04/26/24 21:00 04/27/24 20:17 Heparin Sodium,Porcine 5,000 Unit/Ml 1 Ml Vial SQ 5,000 unit Q12HR SAM Administration Sodium Chloride 1,000 mls @ 75 mls/hr 04/26/24 12:45 04/27/24 09:03 Saline 0.9% IV 75 mls/hr .[id number] SAM Administration Insulin Aspart 0 unit 04/27/24 07:30 04/27/24 20:17 Insulin Aspart (Novolog) 100 Unit/Ml Vial SQ 1 unit ACHS SAM Administration Protocol Levothyroxine Sodium 50 mcg 04/27/24 09:00 04/27/24 08:49 Levothyroxine 50 Mcg Tab PO 50 mcg DAILY SAM Administration Lidocaine 1 patch 04/27/24 09:00 04/27/24 08:47 Lidocaine 4% Patch TOPICAL 1 patch DAILY SAM Administration Protocol Miscellaneous Information 1 each 04/26/24 21:14 Potassium Replacement Protocol 1 Each Misc MISCELLANE DAILY PRN Per Protocol Protocol Naloxone HCl 0.2 mg 04/26/24 12:56 Naloxone 0.4 Mg/Ml 1 Ml Vial IV Q2M PRN Opioid Reversal Non-Formulary Medication 300 mg 04/26/24 21:00 04/27/24 20:17 Imatinib Mesylate [Imatinib Mesylate] PO Not Given HS COUNT INCLUDES THE [facility] Ondansetron HCl 4 mg 04/26/24 20:46 Ondansetron 4 Mg Tab PO Q6H PRN Nausea And Vomiting Potassium Citrate 10 meq 04/27/24 09:00 04/27/24 08:51 Potassium Citrate 10 Meq Tablet.Er PO 10 meq DAILY SAM Administration Sucralfate 1 gm 04/26/24 21:00 04/27/24 20:17 Sucralfate 1 Gm Tab PO 1 gm ACHS SAM Administration Tamsulosin HCl 0.4 mg 04/27/24 09:00 04/27/24 08:46 Tamsulosin 0.4 Mg Cap.Er.24h PO 0.4 mg DAILY SAM Administration Tramadol HCl 50 mg 04/26/24 20:46 Tramadol 50 Mg Tab PO Q6H PRN Pain Objective - Vital Signs Vital signs: Vital Signs Temp 97.8 F 04/28/24 10:58 Pulse 87 04/28/24 10:58 Resp 16 04/28/24 10:58 BP 138/60 04/28/24 10:58 Pulse Ox 99 04/28/24 10:58 FiO2 Intake & Output 04/27/24 04/28/24 04/28/24 18:59 06:59 18:59 Intake Total 1618 1028 Output Total 1850 500 450 Balance -232 -500 578 Weight 122.5 kg 123 kg Intake: IV 10 Invasive Line 4 10 Intake, IV Titration 900 900 Amount Sodium Chloride 0.9% 1, 900 900 000 ml @ 75 mls/hr IV . [id number] COUNT INCLUDES THE [facility] Rx#:[id number] Oral 718 118 Output: Urine 1850 500 450 Uretheral (Garcia) 450 Other: Voiding Method Indwelling Catheter Indwelling Catheter Indwelling Catheter - Exam -GENERAL: The patient is alert and oriented x1-2 partially, not in any acute distress. Well developed, well nourished. Generally weak HEENT: Pupils are round and equally reacting to light. EOMI. No scleral icterus. No conjunctival pallor. Normocephalic, atraumatic. No pharyngeal erythema. No thyromegaly. CARDIOVASCULAR: S1 and S2 present. No murmurs, rubs, or gallops. PULMONARY: Chest is clear to auscultation, no wheezing , no crackles. ABDOMEN: Soft, nontender, nondistended, normoactive bowel sounds. No palpable organomegaly. MUSCULOSKELETAL: No joint swelling or deformity. EXTREMITIES: No cyanosis, clubbing, or pedal edema. NEUROLOGICAL: Gross neurological examination did not reveal any focal deficits. SKIN: No rashes. no petechiae. - Labs CBC & Chem 7: 04/28/24 07:38 04/28/24 07:38 Labs: Abnormal Lab Results - Last 24 Hours (Table) 04/27/24 04/27/24 04/27/24 Range/Units 09:34 11:24 11:51 WBC (3.8-10.6) k/uL RBC (4.30-5.90) m/uL Hgb (13.0-17.5) gm/dL Hct (39.0-53.0) % Plt Count (150-450) k/uL Lymphocytes # (1.0-4.8) k/uL Potassium (3.5-5.1) mmol/L BUN (9-20) mg/dL Creatinine (0.66-1.25) mg/dL Glucose (74-99) mg/dL POC Glucose (mg/dL) 167 H (70-110) mg/dL Hemoglobin A1c 6.4 H (<=6.0) % Ur Leukocyte Esterase Small H (Negative) Hyaline Casts 4 H (0-2) /lpf 04/27/24 04/27/24 04/28/24 Range/Units 17:05 19:48 02:17 WBC (3.8-10.6) k/uL RBC (4.30-5.90) m/uL Hgb (13.0-17.5) gm/dL Hct (39.0-53.0) % Plt Count (150-450) k/uL Lymphocytes # (1.0-4.8) k/uL Potassium (3.5-5.1) mmol/L BUN (9-20) mg/dL Creatinine (0.66-1.25) mg/dL Glucose (74-99) mg/dL POC Glucose (mg/dL) 149 H 160 H 162 H (70-110) mg/dL Hemoglobin A1c (<=6.0) % Ur Leukocyte Esterase (Negative) Hyaline Casts (0-2) /lpf 04/28/24 04/28/24 04/28/24 Range/Units 06:02 07:38 07:38 WBC 3.6 L (3.8-10.6) k/uL RBC 3.62 L (4.30-5.90) m/uL Hgb 10.9 L (13.0-17.5) gm/dL Hct 33.8 L (39.0-53.0) % Plt Count 107 L (150-450) k/uL Lymphocytes # 0.8 L (1.0-4.8) k/uL Potassium 3.1 L (3.5-5.1) mmol/L BUN 113 H* (9-20) mg/dL Creatinine 2.15 H (0.66-1.25) mg/dL Glucose 124 H (74-99) mg/dL POC Glucose (mg/dL) 130 H (70-110) mg/dL Hemoglobin A1c (<=6.0) % Ur Leukocyte Esterase (Negative) Hyaline Casts (0-2) /lpf Assessment and Plan Assessment: Swallowing difficulty with low appetite and frequent nausea vomiting, Weight loss secondary to above, failure to thrive Acute kidney injury on chronic kidney disease stage III Nausea vomiting Metabolic encephalopathy on dementia probably Diabetes mellitus Hypertension Hyperlipidemia History of osteoarthritis Hypothyroidism 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 Braaksma. evaluated by orthopedic team Plan: Continue with gentle hydration Lasix and hydrochlorothiazide and hold Continue with insulin sliding scale Swallow evaluation Monitor troponin unlikely cardiac cause Monitor electrolytes Labs and medication were reviewed.. Continue same treatment. Continue with symptomatic treatment. Resume home medication. Monitor lytes and vitals. DVT and GI prophylaxis. Further recommendations depends on the clinical course of the patient DVT prophylaxis: Subcutaneous heparin GI Prophylaxis: Pepcid Prognosis is guarded
[2024-04-28 11:47] LABS: Glucose,Whole Blood 162 mg/dL (70-110)
--- NOTE | 2024-04-28 12:21 | P.PN ---
Subjective Patient is seen for follow-up for acute kidney injury. Currently maintained on IV fluids. No significant complaints today. Overall feeling better. Serum creatinine decreased to 2.1 today. Potassium was 3.1. 24 hour urine output at 2.3 L. Patient has an indwelling Garcia catheter. Objective - Vital Signs Vital signs: Vital Signs Temp 97.8 F 04/28/24 10:58 Pulse 87 04/28/24 10:58 Resp 16 04/28/24 10:58 BP 138/60 04/28/24 10:58 Pulse Ox 99 04/28/24 10:58 FiO2 Intake & Output 04/27/24 04/28/24 04/28/24 18:59 06:59 18:59 Intake Total 1618 1028 Output Total 1850 500 450 Balance -232 -500 578 Weight 122.5 kg 123 kg Intake: IV 10 Invasive Line 4 10 Intake, IV Titration 900 900 Amount Sodium Chloride 0.9% 1, 900 900 000 ml @ 75 mls/hr IV . [id number] [facility] Rx#:[id number] Oral 718 118 Output: Urine 1850 500 450 Uretheral (Garcia) 450 Other: Voiding Method Indwelling Catheter Indwelling Catheter Indwelling Catheter - Exam Patient is awake, comfortable, no acute distress. Examination of the heart S1 and S2 Examination of the lungs bilateral breath sounds are Abdomen is soft nontender Examination of lower extremities shows no significant edema [employer]CH[employer]ICIAN exam grossly intact - Labs CBC & Chem 7: 04/28/24 07:38 04/28/24 07:38 Labs: Abnormal Lab Results - Last 24 Hours (Table) 04/27/24 04/27/24 04/27/24 Range/Units 09:34 17:05 19:48 WBC (3.8-10.6) k/uL RBC (4.30-5.90) m/uL Hgb (13.0-17.5) gm/dL Hct (39.0-53.0) % Plt Count (150-450) k/uL Lymphocytes # (1.0-4.8) k/uL Potassium (3.5-5.1) mmol/L BUN (9-20) mg/dL Creatinine (0.66-1.25) mg/dL Glucose (74-99) mg/dL POC Glucose (mg/dL) 149 H 160 H (70-110) mg/dL Hemoglobin A1c 6.4 H (<=6.0) % 04/28/24 04/28/24 04/28/24 Range/Units 02:17 06:02 07:38 WBC 3.6 L (3.8-10.6) k/uL RBC 3.62 L (4.30-5.90) m/uL Hgb 10.9 L (13.0-17.5) gm/dL Hct 33.8 L (39.0-53.0) % Plt Count 107 L (150-450) k/uL Lymphocytes # 0.8 L (1.0-4.8) k/uL Potassium (3.5-5.1) mmol/L BUN (9-20) mg/dL Creatinine (0.66-1.25) mg/dL Glucose (74-99) mg/dL POC Glucose (mg/dL) 162 H 130 H (70-110) mg/dL Hemoglobin A1c (<=6.0) % 04/28/24 04/28/24 Range/Units 07:38 11:45 WBC (3.8-10.6) k/uL RBC (4.30-5.90) m/uL Hgb (13.0-17.5) gm/dL Hct (39.0-53.0) % Plt Count (150-450) k/uL Lymphocytes # (1.0-4.8) k/uL Potassium 3.1 L (3.5-5.1) mmol/L BUN 113 H* (9-20) mg/dL Creatinine 2.15 H (0.66-1.25) mg/dL Glucose 124 H (74-99) mg/dL POC Glucose (mg/dL) 162 H (70-110) mg/dL Hemoglobin A1c (<=6.0) % Assessment and Plan Assessment: 1. Acute kidney injury secondary to ATN secondary to diuresis. Creatinine 2.81 on admission, improved to 2.5 today. UA showed hyaline casts. repeat ultrasound of the kidneys as the ultrasound on 03/29/2024 was inconclusive and both kidneys were not visualized. 2. Chronic kidney disease stage IV with baseline creatinine near 2 secondary to diabetic kidney disease . 3. Hypokalemia from diuresis. Replaced. 4. Metablic encephalopathy, possibly related to Lyrica use in advanced CKD 5. Hypertension with chronic kidney disease. Stable. 6. Anemia of chronic kidney disease. Hemoglobin at goal 7. Primary hyperparathyroidism status post parathyroidectomy. Calcium at 8.6. Plan: continue with IV fluids. Encourage increased oral intake. place potassium. Repeat labs in a.m. Check ultrasound of the kidneys
[2024-04-28 16:46] LABS: Glucose,Whole Blood 159 mg/dL (70-110)
[2024-04-28 20:13] LABS: Glucose,Whole Blood 141 mg/dL (70-110)
[2024-04-29 01:47] LABS: Glucose,Whole Blood 158 mg/dL (70-110)
[2024-04-29 06:14] LABS: Glucose,Whole Blood 134 mg/dL (70-110)
[2024-04-29 07:56] LABS: Basophils % (A) 1 %; Eosinophils # (A) 0.2 k/uL (0-0.7); Eosinophils % (A) 5 %; HCT 32.4 % (39.0-53.0); HGB 10.4 gm/dL (13.0-17.5); Lymphocytes # (A) 0.9 k/uL (1.0-4.8); Lymphocytes % (A) 29 %; MCH 30.3 pg (25.0-35.0); MCHC 32.1 g/dL (31.0-37.0); MCV 94.4 fL (80.0-100.0); Mean Platelet Volume 9.6; Monocytes # (A) 0.4 k/uL (0-1.0); Monocytes % (A) 14 %; Neutrophils # (A) 1.6 k/uL (1.3-7.7); Neutrophils % (A) 49 %; Platelet Count 106 k/uL (150-450); RBC 3.43 m/uL (4.30-5.90); RDW 14.7 % (11.5-15.5); WBC 3.2 k/uL (3.8-10.6)
[2024-04-29 08:00] LABS: VBG PH 7.45 (7.31-7.41)
[2024-04-29 08:05] LABS: African American GFR (CKD) 41 (>60 ml/min/1.73 sqM); Anion Gap 2 mmol/L; Blood Urea Nitrogen 89 mg/dL (9-20); Calcium 8.6 mg/dL (8.4-10.2); Carbon Dioxide 29 mmol/L (22-30); Chloride 110 mmol/L (98-107); Glucose 123 mg/dL (74-99); Non-African American GFR(CKD) 36 (>60 ml/min/1.73 sqM); Potassium 3.4 mmol/L (3.5-5.1); Sodium 141 mmol/L (137-145)
[2024-04-29 09:16] LABS: Appearance,Urine Turbid (Clear); Bacteria,Urine Many /hpf; Bilirubin,Urine Negative (Negative); Blood,Urine Small (Negative); Color,Urine Colorless; Glucose,Urine (UA) Negative (Negative); Ketones,Urine Negative (Negative); Leukocyte Esterase,Urine Large (Negative); Mucus,Urine Rare /hpf; Nitrite,Urine Negative (Negative); PH, Urine 5.5 (5.0-8.0); Protein,Urine Trace (Negative); RBC,Urine 32 /hpf (0-5); Specific Gravity,Urine 1.013 (1.001-1.035); Urobilinogen,Urine <2.0 mg/dL (<2.0); WBC,Urine 108 /hpf (0-5)
[2024-04-29 11:48] LABS: Glucose,Whole Blood 158 mg/dL (70-110)
[2024-04-29] MEDS: POTASSIUM CHLORIDE ER 20 MEQ TAB.ER PO ONE (11:51)
--- NOTE | 2024-04-29 12:26 | P.PN ---
Subjective Patient is seen for follow-up for acute kidney injury. Currently maintained on IV fluids. No significant complaints today. Overall feeling better. Serum creatinine decreased to 1.8 today. Potassium was 3.4. 24 hour urine output at 2.0 L. Patient has an indwelling Garcia catheter. Objective - Vital Signs Vital signs: Vital Signs Temp 98.1 F 04/29/24 10:59 Pulse 78 04/29/24 10:59 Resp 16 04/29/24 10:59 BP 125/69 04/29/24 10:59 Pulse Ox 99 04/29/24 10:59 FiO2 Intake & Output 04/28/24 04/29/24 04/29/24 18:59 06:59 18:59 Intake Total 1206 910 Output Total 1250 800 600 Balance -44 -800 310 Weight 123.5 kg Intake: IV 10 10 Invasive Line 4 10 10 Intake, IV Titration 900 900 Amount Sodium Chloride 0.9% 1, 900 900 000 ml @ 75 mls/hr IV . [id number] [facility] Rx#:[id number] Oral 296 Output: Urine 1250 800 600 Uretheral (Garcia) 450 Other: Voiding Method Indwelling Catheter Indwelling Catheter Indwelling Catheter - Exam Patient is awake, comfortable, no acute distress. Examination of the heart S1 and S2 Examination of the lungs bilateral breath sounds are Abdomen is soft nontender Examination of lower extremities shows no significant edema [employer]OND [employer]ENT exam grossly intact - Labs CBC & Chem 7: 04/29/24 07:18 04/29/24 07:37 Labs: Abnormal Lab Results - Last 24 Hours (Table) 04/28/24 04/28/24 04/29/24 Range/Units 16:45 20:11 01:46 WBC (3.8-10.6) k/uL RBC (4.30-5.90) m/uL Hgb (13.0-17.5) gm/dL Hct (39.0-53.0) % Plt Count (150-450) k/uL Lymphocytes # (1.0-4.8) k/uL VBG pH (7.31-7.41) VBG HCO3 (24-28) mmol/L Potassium (3.5-5.1) mmol/L Chloride (98-107) mmol/L BUN (9-20) mg/dL Creatinine (0.66-1.25) mg/dL Glucose (74-99) mg/dL POC Glucose (mg/dL) 159 H 141 H 158 H (70-110) mg/dL Urine Protein (Negative) Urine Blood (Negative) Ur Leukocyte Esterase (Negative) Urine RBC (0-5) /hpf Urine WBC (0-5) /hpf Urine WBC Clumps (None) /hpf Urine Bacteria (None) /hpf Urine Mucus (None) /hpf 04/29/24 04/29/24 04/29/24 Range/Units 06:13 07:18 07:37 WBC 3.2 L (3.8-10.6) k/uL RBC 3.43 L (4.30-5.90) m/uL Hgb 10.4 L (13.0-17.5) gm/dL Hct 32.4 L (39.0-53.0) % Plt Count 106 L (150-450) k/uL Lymphocytes # 0.9 L (1.0-4.8) k/uL VBG pH (7.31-7.41) VBG HCO3 (24-28) mmol/L Potassium 3.4 L (3.5-5.1) mmol/L Chloride 110 H (98-107) mmol/L BUN 89 H (9-20) mg/dL Creatinine 1.82 H (0.66-1.25) mg/dL Glucose 123 H (74-99) mg/dL POC Glucose (mg/dL) 134 H (70-110) mg/dL Urine Protein (Negative) Urine Blood (Negative) Ur Leukocyte Esterase (Negative) Urine RBC (0-5) /hpf Urine WBC (0-5) /hpf Urine WBC Clumps (None) /hpf Urine Bacteria (None) /hpf Urine Mucus (None) /hpf 04/29/24 04/29/24 04/29/24 Range/Units 07:43 08:28 11:46 WBC (3.8-10.6) k/uL RBC (4.30-5.90) m/uL Hgb (13.0-17.5) gm/dL Hct (39.0-53.0) % Plt Count (150-450) k/uL Lymphocytes # (1.0-4.8) k/uL VBG pH 7.45 H (7.31-7.41) VBG HCO3 29 H (24-28) mmol/L Potassium (3.5-5.1) mmol/L Chloride (98-107) mmol/L BUN (9-20) mg/dL Creatinine (0.66-1.25) mg/dL Glucose (74-99) mg/dL POC Glucose (mg/dL) 158 H (70-110) mg/dL Urine Protein Trace H (Negative) Urine Blood Small H (Negative) Ur Leukocyte Esterase Large H (Negative) Urine RBC 32 H (0-5) /hpf Urine WBC 108 H (0-5) /hpf Urine WBC Clumps Many H (None) /hpf Urine Bacteria Many H (None) /hpf Urine Mucus Rare H (None) /hpf Assessment and Plan Assessment: 1. Acute kidney injury secondary to ATN secondary to diuresis. Creatinine 2.81 on admission, improved to 1.8 today. UA showed hyaline casts. Repeat ultrasound of the kidneys as the ultrasound on 03/29/2024 was inconclusive and both kidneys were not visualized. 2. Chronic kidney disease stage IV with baseline creatinine near 2 secondary to diabetic kidney disease . 3. Hypokalemia from diuresis. Replaced. 4. Metablic encephalopathy, possibly related to Lyrica use in advanced CKD 5. Hypertension with chronic kidney disease. Stable. 6. Anemia of chronic kidney disease. Hemoglobin at goal 7. Primary hyperparathyroidism status post parathyroidectomy. Calcium at 8.6. Plan: continue with IV fluids. Encourage increased oral intake. Replace potassium. Repeat labs in a.m. Check ultrasound of the kidneys
--- NOTE | 2024-04-29 13:37 | CT ---
EXAMINATION TYPE: CT brain wo con CT DLP: 1220.4 mGycm, Automated exposure control for dose reduction was used. DATE OF EXAM: 04/29/2024 9:57 AM COMPARISON: None.. CLINICAL INDICATION:Male, 73 years old with history of mild confusion, confusion TECHNIQUE: Brain: Axial CT images of the brain were obtained with coronal and sagittal reformats created and rev iewed. Contrast used: None. Oral contrast used: None. FINDINGS: Extra-axial spaces: No abnormal extra-axial fluid collections. Basilar cisterns are patent. Ventricular system: Ventricles appear dilated in proportion to the degree of cerebral atrophy. Cerebral parenchyma: No increased attenuation to suggest acute intraparenchymal hemorrhage. The gra y-white matter interface appears maintained. Mild generalized brain atrophy. Scattered hypoattenuat ing areas are seen within the cerebral white matter, nonspecific but most often seen with chronic juan carlos rovascular ischemic changes; mild in degree. Cerebellum: No acute abnormality. Mass effect: No evidence of mass effect or midline shift. Intracranial vasculature: Unremarkable Soft tissues: No acute or concerning abnormality. Visualized orbits: Orbital contents appear grossly intact. Calvarium/osseous structures: No evidence of calvarial fracture. Paranasal sinuses and mastoid air cells: Clear. MRI is more sensitive for detecting acute processes such as infarct, and may be considered if clinica lly warranted. IMPRESSION: No acute intracranial CT abnormality. Mild atrophy and chronic microvascular ischemic changes.
--- NOTE | 2024-04-29 14:37 | US ---
EXAMINATION TYPE: US kidneys/renal and bladder DATE OF EXAM: 04/29/2024 COMPARISON: Ultrasound 03/29/2024. CLINICAL INDICATION: Male, 73 years old with history of wedni, previous USS inconclusive; WENDI EXAM MEASUREMENTS: Right Kidney: unable to visualize Left Kidney: 10.0 x 5.1 x 4.7 cm Technical limitations due to patient's body habitus, overlying bowel gas and limited mobility Right Kidney: unable to visualize Left Kidney: limited evaluation, no evidence of hydronephrosis Bladder: not seen. Garcia Catheter IMPRESSION: 1. No obstructive uropathy of the left kidney. 2. Nonvisualization right kidney.
--- NOTE | 2024-04-29 14:54 | P.PN ---
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 Patient states he came because of his low appetite no he is not eating. States also he vomited 8 times this morning no chest pain no abdominal pain Denies any urinary symptoms No headache or dizziness He is not working at baseline Has a Garcia with clear urine Hemodynamically stable Had febrile Potassium 2.5, sodium is mildly low creatinine slightly above baseline at 2.8 with patient Chronic kidney disease stage III Platelet count is mildly low at 33 and mildly anemic at 11.8. Troponin mildly elevated EKG showing normal sinus rhythm at [address]-T changes Chest x-ray showing lung volumes with atelectasis versus pulmonary edema KUB is negative for specific bowel gas obstructive pattern EKG from 03/2024 showing preserved ejection fraction 55 to 60% Patient was on Lasix and hydrochlorothiazide at home which were held Also is diabetic. Hold his Levemir 26 units at bedtime and NovoLog 9 units with meals Patient was started on normal saline 75 mL/h 04/27/2024 Patient is becoming more awake and stronger His dehydration is improving Diuretics remain on hold Continue with normal saline 75 mL/h Creatinine 2.5 today, down from 2.8 Potassium corrected 4.2. Sodium 135 which is slightly better from 133. describes myoclonic jerks most likely secondary to renal injury dehydration and improved with therapy. However no abnormal movements noted since admission. no Abnormal movements currently As per patient was able to eat little bit today Swallow evaluation is ordered was suspecting UTI however patient denies any urinary symptoms, neither currently nor before. No fever no leukocytosis. Currently antibiotics has more risk than benefit however patient at risk of UTI given his Garcia catheter and bedridden situation. Orthopedic team evaluated the patient for his right displaced femoral fracture, patient is not a good candidate for surgery per Dr. Camejo. Family are considering second opinion. He ate 25 to 50% 04/28/2024 Patient tolerates diet well, he was encouraged to eat and drink. He passed swallow eval swallow evaluation. He is eating 25 to 50% of his diet. He did not need any Zofran or other antiemetics. Most likely patient comes with recurrent nausea vomiting suspected secondary to gastritis and irritation to the stomach. This has stopped since he came to the hospital. This could be also in part due to some of the medication like the imatinib which she was not taking it since admission because of nonformulary. He is getting IV fluid normal saline 75 mL/h and his creatinine keep improving down to 2.1. Which is close and getting closer to baseline. Also Lasix and hydrochlorothiazide are on hold. He does not require extra insulin. Elevated troponin are secondary to kidney disease, patient with no chest pain and echocardiogram showing preserved LV function. Also there is no evidence of UTI with no symptoms no fever no leukocytosis and repeat urine analysis showing improvement. Low potassium level has been replaced. Orthopedic team evaluated the patient for his distal right femur fracture and the plan to follow-up with Dr. Camejo as an outpatient with possible second opinion from the trauma surgeon Dr. Forbes. This plan discussed with the patient in details and he verbalized understanding and acceptance. 04/29/24 Patient metabolic parameters are improving we will including creatinine is coming down to 1.8, remains on normal saline 75 mL/h, his Lasix and hydrochlorothiazide on hold. Nephrology following closely, ultrasound showing no obstructive uropathy on the left side but nonvisualization of the right kidney. Despite improvement in kidney function patient today slightly more confused, he knows in the hospital but he is more confused to time. He was still 50% since admission and currently. So we did workup ammonia level was low, but urine analysis showing infection, Garcia catheter was placed on admission. Will going to start him ceftriaxone, send urine culture and replace Garcia catheter Patient received 1 dose of Ultram yesterday His diet is somewhat full, he passed swallow evaluation. Sugars controlled while his Levemir 26 units at bedtime and NovoLog 9 units with meals are put on hold currently. He came with nausea vomiting which is stopped now. Also patient is a known case of right distal humeral fracture prior to hospitalization, has been evaluated by Dr. Camejo and is a very good surgical candidate and family were advised by orthopedic team to see for second opinion with the trauma surgeon Dr. Molina. Patient currently continues controlled, he required 1 dose of Ultram yesterday Was at bedside and she was updated with the management plan and she is agreeable We did CT of the brain for his confusion today which was unremarkable for acute process. Most likely patient has metabolic encephalopathy secondary to UTI and other metabolic renal failure and right femoral fracture Review of systems CONSTITUTIONAL: No fever, no malaise, no fatigue. HEENT: No recent visual problems or hearing problems. Denied any sore throat. CARDIOVASCULAR: No orthopnea, PND, no palpitations, no syncope. PULMONARY: No shortness of breath, no cough, no hemoptysis. Active Medications Generic Name Dose Route Start Last Admin Trade Name Freq PRN Reason Stop Dose Admin Acetaminophen 650 mg 04/26/24 12:56 Acetaminophen Tab 325 Mg Tab PO Q6HR PRN Mild Pain or Fever > 100.5 Amlodipine Besylate 10 mg 04/27/24 09:00 04/29/24 08:08 Amlodipine 10 Mg Tab PO 10 mg DAILY SAM Administration Atorvastatin Calcium 10 mg 04/26/24 21:00 04/28/24 20:45 Atorvastatin 10 Mg Tab PO 10 mg HS SAM Administration Dextrose/Water 25 ml 04/26/24 21:20 Dextrose 50% Syringe 50 Ml IVP PER PROTOCOL PRN Hypoglycemia Protocol Dextrose/Water 50 ml 04/26/24 21:20 Dextrose 50% Syringe 50 Ml IVP PER PROTOCOL PRN Hypoglycemia Protocol Duloxetine HCl 60 mg 04/27/24 09:00 04/29/24 08:09 Duloxetine Hcl 60 Mg Capsule.Dr PO 60 mg DAILY SAM Administration Famotidine 20 mg 04/28/24 09:00 04/29/24 08:08 Famotidine 20 Mg Tab PO 20 mg DAILY SAM Administration Heparin Sodium (Porcine) 5,000 unit 04/26/24 21:00 04/29/24 08:08 Heparin Sodium,Porcine 5,000 Unit/Ml 1 Ml Vial SQ 5,000 unit Q12HR SAM Administration Sodium Chloride 1,000 mls @ 75 mls/hr 04/26/24 12:45 04/29/24 01:38 Saline 0.9% IV 75 mls/hr .[id number] SAM Administration Ceftriaxone Sodium 1 gm/ 50 mls @ 100 mls/hr 04/29/24 15:00 Sodium Chloride IVPB Q24HR SAM Protocol Insulin Aspart 0 unit 04/27/24 07:30 04/29/24 12:11 Insulin Aspart (Novolog) 100 Unit/Ml Vial SQ 1 unit ACHS SAM Administration Protocol Levothyroxine Sodium 50 mcg 04/27/24 09:00 04/29/24 08:08 Levothyroxine 50 Mcg Tab PO 50 mcg DAILY SAM Administration Lidocaine 1 patch 04/27/24 09:00 04/29/24 08:08 Lidocaine 4% Patch TOPICAL 1 patch DAILY SAM Administration Protocol Miscellaneous Information 1 each 04/26/24 21:14 Potassium Replacement Protocol 1 Each Mis MISCELLANE DAILY PRN Per Protocol Protocol Miscellaneous Information 1 each 04/28/24 08:50 Potassium Replacement Protocol 1 Each Mis MISCELLANE DAILY PRN Per Protocol Protocol Naloxone HCl 0.2 mg 04/26/24 12:56 Naloxone 0.4 Mg/Ml 1 Ml Vial IV Q2M PRN Opioid Reversal Non-Formulary Medication 300 mg 04/26/24 21:00 04/28/24 20:17 Imatinib Mesylate [Imatinib Mesylate] PO Not Given HS SAM Ondansetron HCl 4 mg 04/26/24 20:46 Ondansetron 4 Mg Tab PO Q6H PRN Nausea And Vomiting Potassium Citrate 10 meq 04/27/24 09:00 04/29/24 08:14 Potassium Citrate 10 Meq Tablet.Er PO 10 meq DAILY SAM Administration Sucralfate 1 gm 04/26/24 21:00 04/29/24 11:51 Sucralfate 1 Gm Tab PO 1 gm ACHS SAM Administration Tamsulosin HCl 0.4 mg 04/27/24 09:00 04/29/24 08:08 Tamsulosin 0.4 Mg Cap.Er.24h PO 0.4 mg DAILY SAM Administration Tramadol HCl 50 mg 04/26/24 20:46 04/28/24 07:56 Tramadol 50 Mg Tab PO 50 mg Q6H PRN Administration Pain Objective - Vital Signs Vital signs: Vital Signs Temp 98.2 F 04/29/24 07:59 Pulse 86 04/29/24 07:59 Resp 16 04/29/24 07:59 BP 153/71 04/29/24 07:59 Pulse Ox 98 04/29/24 07:59 FiO2 Intake & Output 04/28/24 04/29/24 04/29/24 18:59 06:59 18:59 Intake Total 1206 10 Output Total 1250 800 Balance -44 -800 10 Weight 123.5 kg Intake: IV 10 10 Invasive Line 4 10 10 Intake, IV Titration 900 Amount Sodium Chloride 0.9% 1, 900 000 ml @ 75 mls/hr IV . [id number] [facility] Rx#:[id number] Oral 296 Output: Urine 1250 800 Uretheral (Garcia) 450 Other: Voiding Method Indwelling Catheter Indwelling Catheter Indwelling Catheter - Exam -GENERAL: The patient is alert and oriented x1-2 partially, not in any acute distress. Well developed, well nourished. Generally weak HEENT: Pupils are round and equally reacting to light. EOMI. No scleral icterus. No conjunctival pallor. Normocephalic, atraumatic. No pharyngeal erythema. No thyromegaly. CARDIOVASCULAR: S1 and S2 present. No murmurs, rubs, or gallops. PULMONARY: Chest is clear to auscultation, no wheezing , no crackles. ABDOMEN: Soft, nontender, nondistended, normoactive bowel sounds. No palpable organomegaly. MUSCULOSKELETAL: No joint swelling or deformity. EXTREMITIES: No cyanosis, clubbing, or pedal edema. NEUROLOGICAL: Gross neurological examination did not reveal any focal deficits. SKIN: No rashes. no petechiae. - Labs CBC & Chem 7: 04/29/24 07:18 04/29/24 07:37 Labs: Abnormal Lab Results - Last 24 Hours (Table) 04/28/24 04/28/24 04/28/24 Range/Units 07:38 11:45 16:45 WBC (3.8-10.6) k/uL RBC (4.30-5.90) m/uL Hgb (13.0-17.5) gm/dL Hct (39.0-53.0) % Plt Count (150-450) k/uL Lymphocytes # (1.0-4.8) k/uL VBG pH (7.31-7.41) VBG HCO3 (24-28) mmol/L Potassium 3.1 L (3.5-5.1) mmol/L Chloride (98-107) mmol/L BUN 113 H* (9-20) mg/dL Creatinine 2.15 H (0.66-1.25) mg/dL Glucose 124 H (74-99) mg/dL POC Glucose (mg/dL) 162 H 159 H (70-110) mg/dL 04/28/24 04/29/24 04/29/24 Range/Units 20:11 01:46 06:13 WBC (3.8-10.6) k/uL RBC (4.30-5.90) m/uL Hgb (13.0-17.5) gm/dL Hct (39.0-53.0) % Plt Count (150-450) k/uL Lymphocytes # (1.0-4.8) k/uL VBG pH (7.31-7.41) VBG HCO3 (24-28) mmol/L Potassium (3.5-5.1) mmol/L Chloride (98-107) mmol/L BUN (9-20) mg/dL Creatinine (0.66-1.25) mg/dL Glucose (74-99) mg/dL POC Glucose (mg/dL) 141 H 158 H 134 H (70-110) mg/dL 04/29/24 04/29/24 04/29/24 Range/Units 07:18 07:37 07:43 WBC 3.2 L (3.8-10.6) k/uL RBC 3.43 L (4.30-5.90) m/uL Hgb 10.4 L (13.0-17.5) gm/dL Hct 32.4 L (39.0-53.0) % Plt Count 106 L (150-450) k/uL Lymphocytes # 0.9 L (1.0-4.8) k/uL VBG pH 7.45 H (7.31-7.41) VBG HCO3 29 H (24-28) mmol/L Potassium 3.4 L (3.5-5.1) mmol/L Chloride 110 H (98-107) mmol/L BUN 89 H (9-20) mg/dL Creatinine 1.82 H (0.66-1.25) mg/dL Glucose 123 H (74-99) mg/dL POC Glucose (mg/dL) (70-110) mg/dL Assessment and Plan Assessment: Swallowing difficulty with low appetite and frequent nausea vomiting, improved Weight loss secondary to above, failure to thrive Acute kidney injury on chronic kidney disease stage III. 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 Camejo. evaluated by orthopedic team Plan: Continue with gentle hydration Lasix and hydrochlorothiazide and hold Continue with insulin sliding scale Nephrology consult Start ceftriaxone follow-up urine culture Orthopedics evaluated the patient. Follow-up upon discharge as an outpatient as well CT of the brain reviewed Labs and medication were reviewed.. Continue same treatment. Continue with symptomatic treatment. Resume home medication. Monitor lytes and vitals. DVT and GI prophylaxis. Further recommendations depends on the clinical course of the patient DVT prophylaxis: Subcutaneous heparin GI Prophylaxis: Pepcid Prognosis is guarded
[2024-04-29] MEDS: ACETAMINOPHEN TAB 325 MG TAB PO PRN (15:51)
[2024-04-29 16:21] LABS: Glucose,Whole Blood 138 mg/dL (70-110)
[2024-04-29 20:30] LABS: Glucose,Whole Blood 152 mg/dL (70-110)
[2024-04-30 02:02] LABS: Glucose,Whole Blood 145 mg/dL (70-110)
[2024-04-30 06:18] LABS: Glucose,Whole Blood 154 mg/dL (70-110)
--- NOTE | 2024-04-30 08:04 | P.PN ---
Progress Note - Text Progress Note Date: 04/30/24 I spoke with orthopaedic trauma surgeon, Dr. Andrei Hernandez, about the patient's case. He reviewed all the imaging. He agreed with an initial attempt at non- operative treatment given the patient's multiple medical problems, but not that the fracture is displaced, it should probably be addressed. If the patient is medically stable, and the family would like to proceed with surgery, Dr. Hernandez has agreed to accept the patient as a [id number] transfer. Dr. Hernandez is also willing to speak on the phone with the patient. I agree with this plan. The patient is at HIGH RISK for complication from a distal femur replacement and would be best treated with an attempt at ORIF. I think this would be better managed by an orthopaedic trauma surgeon. Dr. Hernandez works at [facility] and his office number is . If the family and primary service wish to proceed, I am happy to reach out to Dr. Hernandez via cell phone and let him know, but will defer all other aspects of facilitating this transfer to the primary service. I will sign off at this time.
[2024-04-30 11:50] LABS: Glucose,Whole Blood 190 mg/dL (70-110)
--- NOTE | 2024-04-30 12:11 | P.PN ---
Subjective Patient is seen for follow-up for acute kidney injury. Currently maintained on IV fluids. No significant complaints today. Serum creatinine decreased to 1.8 yesterday. Potassium was 3.4. 24 hour urine output at 2.0 L. Patient has an indwelling Garcia catheter. Objective - Vital Signs Vital signs: Vital Signs Temp 98.2 F 04/30/24 04:00 Pulse 95 04/30/24 12:00 Resp 16 04/30/24 12:00 BP 131/75 04/30/24 12:00 Pulse Ox 97 04/30/24 12:00 FiO2 Intake & Output 04/29/24 04/30/24 04/30/24 18:59 06:59 18:59 Intake Total 1340 Output Total 1050 950 600 Balance 290 -950 -600 Intake: IV 20 Invasive Line 4 10 Invasive Line 5 10 Intake, IV Titration 900 Amount Sodium Chloride 0.9% 1, 900 000 ml @ 75 mls/hr IV . [id number] [facility] Rx#:[id number] Oral 420 Output: Urine 1050 950 600 Uretheral (Garcia) 450 Other: Voiding Method Indwelling Catheter Indwelling Catheter Indwelling Catheter # Bowel Movements 2 - Exam Patient is awake, comfortable, no acute distress. Examination of the heart S1 and S2 Examination of the lungs bilateral breath sounds are Abdomen is soft nontender Examination of lower extremities shows no significant edema PRODUCTION STATISTICAL CLERK exam grossly intact - Labs CBC & Chem 7: 04/29/24 07:18 04/29/24 07:37 Labs: Abnormal Lab Results - Last 24 Hours (Table) 04/29/24 04/29/24 04/30/24 Range/Units 16:20 20:28 02:01 POC Glucose (mg/dL) 138 H 152 H 145 H (70-110) mg/dL 04/30/24 04/30/24 Range/Units 06:17 11:48 POC Glucose (mg/dL) 154 H 190 H (70-110) mg/dL Assessment and Plan Assessment: 1. Acute kidney injury secondary to ATN secondary to diuresis. Creatinine 2.81 on admission, improved to 1.8 . UA showed hyaline casts. Repeat ultrasound of the kidneys shows no obstructive uropathy and left kidney. Right kidney was again not visualized due to bowel gas 2. Chronic kidney disease stage IV with baseline creatinine near 2 secondary to diabetic kidney disease . 3. Hypokalemia from diuresis. Replaced. 4. Metablic encephalopathy, possibly related to Lyrica use in advanced CKD 5. Hypertension with chronic kidney disease. Stable. 6. Anemia of chronic kidney disease. Hemoglobin at goal 7. Primary hyperparathyroidism status post parathyroidectomy. Calcium at 8.6. Plan: continue with IV fluids. Encourage increased oral intake. Repeat labs in a.m.
[2024-04-30 16:26] LABS: Glucose,Whole Blood 175 mg/dL (70-110)
[2024-04-30 20:19] LABS: Glucose,Whole Blood 174 mg/dL (70-110)
[2024-05-01 02:00] LABS: Glucose,Whole Blood 171 mg/dL (70-110)
[2024-05-01 06:14] LABS: Glucose,Whole Blood 191 mg/dL (70-110)
[2024-05-01 11:43] LABS: Glucose,Whole Blood 175 mg/dL (70-110)
[2024-05-01 11:50] LABS: African American GFR (CKD) 80 (>60 ml/min/1.73 sqM); Anion Gap 5 mmol/L; Blood Urea Nitrogen 42 mg/dL (9-20); Calcium 8.7 mg/dL (8.4-10.2); Carbon Dioxide 23 mmol/L (22-30); Chloride 117 mmol/L (98-107); Glucose 174 mg/dL (74-99); Non-African American GFR(CKD) 69 (>60 ml/min/1.73 sqM); Potassium 3.5 mmol/L (3.5-5.1); Sodium 145 mmol/L (137-145)
[2024-05-01 12:02] LABS: Basophils % (A) 0 %; Eosinophils # (A) 0.1 k/uL (0-0.7); Eosinophils % (A) 3 %; HCT 32.9 % (39.0-53.0); HGB 10.8 gm/dL (13.0-17.5); Lymphocytes # (A) 0.9 k/uL (1.0-4.8); Lymphocytes % (A) 22 %; MCH 30.6 pg (25.0-35.0); MCHC 32.7 g/dL (31.0-37.0); MCV 93.6 fL (80.0-100.0); Mean Platelet Volume 10.6; Monocytes # (A) 0.5 k/uL (0-1.0); Monocytes % (A) 12 %; Neutrophils # (A) 2.6 k/uL (1.3-7.7); Neutrophils % (A) 60 %; Platelet Count 100 k/uL (150-450); RBC 3.52 m/uL (4.30-5.90); RDW 15.1 % (11.5-15.5); WBC 4.3 k/uL (3.8-10.6)
--- NOTE | 2024-05-01 13:22 | P.PN ---
Subjective Patient is seen for follow-up for acute kidney injury. Currently maintained on IV fluids. No significant complaints today. Serum creatinine decreased to 1.0 Objective - Vital Signs Vital signs: Vital Signs Temp 97.9 F 05/01/24 04:00 Pulse 101 H 05/01/24 12:00 Resp 16 05/01/24 12:00 BP 157/79 05/01/24 12:00 Pulse Ox 96 05/01/24 12:00 FiO2 Intake & Output 04/30/24 05/01/24 05/01/24 18:59 06:59 18:59 Intake Total 20 Output Total 1250 1125 400 Balance -1250 -1125 -380 Weight 125 kg Intake: Oral 20 Output: Urine 1250 1125 400 Other: Voiding Method Indwelling Catheter Indwelling Catheter Indwelling Catheter # Voids 1 # Bowel Movements 1 - Exam Patient is awake, comfortable, no acute distress. Examination of the heart S1 and S2 Examination of the lungs bilateral breath sounds are Abdomen is soft nontender Examination of lower extremities shows no significant edema [employer] exam grossly intact - Labs CBC & Chem 7: 05/01/24 10:47 05/01/24 10:47 Labs: Abnormal Lab Results - Last 24 Hours (Table) 04/30/24 04/30/24 05/01/24 Range/Units 16:19 20:17 01:58 RBC (4.30-5.90) m/uL Hgb (13.0-17.5) gm/dL Hct (39.0-53.0) % Plt Count (150-450) k/uL Lymphocytes # (1.0-4.8) k/uL Chloride (98-107) mmol/L BUN (9-20) mg/dL Glucose (74-99) mg/dL POC Glucose (mg/dL) 175 H 174 H 171 H (70-110) mg/dL 05/01/24 05/01/24 05/01/24 Range/Units 06:12 10:47 10:47 RBC 3.52 L (4.30-5.90) m/uL Hgb 10.8 L (13.0-17.5) gm/dL Hct 32.9 L (39.0-53.0) % Plt Count 100 L (150-450) k/uL Lymphocytes # 0.9 L (1.0-4.8) k/uL Chloride 117 H (98-107) mmol/L BUN 42 H (9-20) mg/dL Glucose 174 H (74-99) mg/dL POC Glucose (mg/dL) 191 H (70-110) mg/dL 05/01/24 Range/Units 11:42 RBC (4.30-5.90) m/uL Hgb (13.0-17.5) gm/dL Hct (39.0-53.0) % Plt Count (150-450) k/uL Lymphocytes # (1.0-4.8) k/uL Chloride (98-107) mmol/L BUN (9-20) mg/dL Glucose (74-99) mg/dL POC Glucose (mg/dL) 175 H (70-110) mg/dL Microbiology - Last 24 Hours (Table) 04/29/24 08:28 Urine Culture - Final Urine,Voided Klebsiella pneumoniae Assessment and Plan Assessment: 1. Acute kidney injury secondary to ATN secondary to diuresis. Creatinine 2.81 on admission, improved to 1.0 . UA showed hyaline casts. Repeat ultrasound of the kidneys shows no obstructive uropathy and left kidney. Right kidney was again not visualized due to bowel gas 2. Chronic kidney disease stage IV with baseline creatinine near 2 secondary to diabetic kidney disease . 3. Hypokalemia from diuresis. Replaced. 4. Metablic encephalopathy, improved. 5. Hypertension with chronic kidney disease. Stable. 6. Anemia of chronic kidney disease. Hemoglobin at goal 7. Primary hyperparathyroidism status post parathyroidectomy. Calcium at 8.6. Plan: DC IV fluids Encourage increased oral intake. Repeat labs in a.m.
[2024-05-01] MEDS: ERTAPENEM 1 GM in SODIUM CHLORIDE 0.9% 50 ML IVPB SCH (16:40)
[2024-05-01 17:02] LABS: Glucose,Whole Blood 210 mg/dL (70-110)
[2024-05-01 20:07] LABS: Glucose,Whole Blood 185 mg/dL (70-110)
--- NOTE | 2024-05-01 21:58 | P.CONS ---
History of Present Illness - Reason for Consult Consult date: 05/01/24 ESBL UTI Requesting physician: Nathaniel E Sheet - Chief Complaint Weakness x few days - History of Present Illness Patient is a 73-year-old male with a past medical history significant for diabetes mellitus hypertension hyperlipidemia osteoarthritis pneumonia and renal disease leukemia presented to the hospital about 5 days ago for evaluation of weakness failure to thrive and hypoglycemia patient has been evaluated and treated by internal medicine as well as cardiology nephrology and orthopedic services apparently patient recently did have a fall leading to nondisplaced right distal femur fracture at that point nonsurgical treatment has been recommended that the patient was currently undergoing patient on presentation to the hospital was afebrile and no fever have recorded in this hospital stay patient was not tachycardic hypotensive or hypoxic and no need for supplemental oxygen patient did have a normal white count admission BUN/creatinine has been elevated though trending down patient did have a UA on admission that was negative repeat UA done on 04/29/2024 was positive with large leukocyte esterase 108 WBC and many bacteria patient has been treated with Rocephin the culture not showing ESBL Klebsiella prompting this consultation most information has been obtained from the chart and nursing staff and the patient was pleasantly confused unable provide any history no vomiting diarrhea no change reported by the nursing staff patient did have ultrasound of the kidneys no obstructive uropathy of the left kidney nonvisualization of the right kidney Review of Systems Positive points has been mentioned in HPI complete review could not be obtained because of his underlying mental status Past Medical History Past Medical History: Asthma, Cancer, Diabetes Mellitus, GERD/Reflux, Hyperlipidemia, Hypertension, Osteoarthritis (OA), Pneumonia, Renal Disease, Sleep Apnea/CPAP/BIPAP Additional Past Medical History / Comment(s): [place] leukemia recently diagnosed and started oral chemo 10/10/19, IDDM type II, pt states he occasionally has hypoglycemia during middle of night, arthritis bilateral hands and occasionally in bilateral knees, gout R foot, WILLAM with Cpap use, chronic kidney disease stage 4 with baseline creatinine near 2 due to diabetic kidney disease and chronic interstitial nephritis, anemia History of Any Multi-Drug Resistant Organisms: ESBL Year Discovered:: 03/28/24 MDRO Source:: urine Past Surgical History: Cholecystectomy, Hernia Repair Additional Past Surgical History / Comment(s): 09/2019 bone marrow biopsy, incisional hernia, colonoscopy with benign polyps. Right cataract removal with IOL implant. PARATHYROIDECTOMY - July 2023 Past Anesthesia/Blood Transfusion Reactions: No Reported Reaction Past Psychological History: No Psychological Hx Reported Smoking Status: Former smoker Past Alcohol Use History: None Reported Past Drug Use History: None Reported - Past Family History Father Family Medical History: Diabetes Mellitus Additional Family Medical History / Comment(s): Father is 97 yrs old. Mother Family Medical History: Dementia Additional Family Medical History / Comment(s): Mother of dementia at the age of 85yrs. Medications and Allergies Home Medications Medication Instructions Recorded Confirmed Type Colchicine [Colcrys] 0.6 mg PO DAILY 04/12/23 04/26/24 History Famotidine 20 mg PO BID 04/12/23 04/26/24 History Febuxostat [Uloric] 40 mg PO DAILY 04/12/23 04/26/24 History Simvastatin [Zocor] 10 mg PO HS 04/12/23 04/26/24 History Acetaminophen Tab [Tylenol] 650 mg PO Q6H PRN 03/26/24 04/26/24 History DULoxetine HCL [Cymbalta] 60 mg PO DAILY 03/26/24 04/26/24 History Furosemide [Lasix] 40 mg PO BID 03/26/24 04/26/24 History Imatinib Mesylate 300 mg PO HS 03/26/24 04/26/24 History Levothyroxine Sodium 50 mcg PO DAILY 03/26/24 04/26/24 History Lidocaine 4% Patch 1 patch TRANSDERM DAILY 03/26/24 04/26/24 History Magnesium Oxide [Magox 400] 400 mg PO DAILY 03/26/24 04/26/24 History Potassium Chloride 10 meq PO DAILY 03/26/24 04/26/24 History Pregabalin [Lyrica] 100 mg PO BID 03/26/24 04/26/24 History Tamsulosin [Flomax] 0.4 mg PO DAILY 03/26/24 04/26/24 History amLODIPine 10 mg PO DAILY 03/26/24 04/26/24 History bisacodyL [Dulcolax] 10 mg RECTAL DAILY PRN 03/26/24 04/26/24 History hydrALAZINE HCL [Apresoline] 25 mg PO Q8HR@0500,1300,2100 03/26/24 04/26/24 History hydrALAZINE HCL [Apresoline] 50 mg PO Q8HR@0500,1300,2100 03/26/24 04/26/24 History hydroCHLOROthiazide [Hydrodiuril] 25 mg PO DAILY 03/26/24 04/26/24 History rOPINIRole HCL [Requip] 1 mg PO HS 03/26/24 04/26/24 History Baclofen 5 mg PO Q8H PRN 04/26/24 04/26/24 History Darbepoetin Bo [Aranesp] 60 mcg SQ Q14D 04/26/24 04/26/24 History Imipenem/Cilastatin Sodium 500 mg IV Q6H 04/26/24 04/26/24 History [Primaxin] Insulin Detemir [Levemir Flexpen] 26 unit SQ DAILY 04/26/24 04/26/24 History Insulin Lispro [Insulin Lispro 9 unit SQ AC-TID 04/26/24 04/26/24 History Kwikpen U-100] Naloxone HCl [Narcan] 4 mg NASAL DIRECTED PRN 04/26/24 04/26/24 History Ondansetron [Zofran] 4 mg PO Q6H PRN 04/26/24 04/26/24 History Prostat 30 ml PO BID 04/26/24 04/26/24 History Sucralfate [Carafate] 1 gm PO ACHS 04/26/24 04/26/24 History traMADol HCL 50 mg PO Q6H PRN 04/26/24 04/26/24 History Allergies Allergy/AdvReac Type Severity Reaction Status Date / Time TACOS Inhibitors Allergy Unknown Verified 04/26/24 13:12 codeine Allergy Unknown Verified 04/26/24 13:12 lisinopril Allergy Unknown Verified 04/26/24 13:12 oxycodone Allergy Unknown Verified 04/26/24 13:12 sulfamethoxazole Allergy Unknown Verified 04/26/24 13:12 [From Bactrim] trimethoprim [From Bactrim] Allergy Unknown Verified 04/26/24 13:12 TIDE LAUNDRY SOAP Allergy Severe Rash/Hives Uncoded 04/26/24 11:16 Physical Exam Vitals: Vital Signs Temp Pulse Resp BP BP Pulse Ox 05/01/24 08:00 97 16 158/79 100 05/01/24 04:00 97.9 F 94 14 147/78 100 05/01/24 00:20 98.5 F 87 16 151/79 98 04/30/24 19:51 98.8 F 84 14 152/71 98 04/30/24 16:00 91 16 137/62 97 Intake and Output 04/30/24 05/01/24 05/01/24 22:59 06:59 14:59 Intake Total 20 Output Total 975 800 400 Balance -975 -800 -380 Intake: Oral 20 Output: Urine 975 800 400 Other: Voiding Method Indwelling Catheter Indwelling Catheter Indwelling Catheter # Bowel Movements 1 Weight 125 kg GENERAL DESCRIPTION: Elderly male lying in bed, no distress. No tachypnea or accessory muscle of respiration use. HEENT: Shows Pallor , no scleral icterus. Oral mucous membrane is dry. No pharyngeal erythema or thrush NECK: Trachea central, no thyromegaly. LUNGS: Unlabored breathing. Decreased breath sounds at bases HEART: S1, S2, regular rate and rhythm. No loud murmur ABDOMEN: Soft, no tenderness , guarding or rigidity, no organomegaly EXTREMITIES: No edema of feet. SKIN: No rash, no masses palpable. NEUROLOGICAL: The patient is awake, orientation could not determine Results CBC & Chem 7: 05/01/24 10:47 05/01/24 10:47 Labs: Abnormal Lab Results - Last 24 Hours (Table) 04/30/24 04/30/24 05/01/24 Range/Units 16:19 20:17 01:58 RBC (4.30-5.90) m/uL Hgb (13.0-17.5) gm/dL Hct (39.0-53.0) % Plt Count (150-450) k/uL Lymphocytes # (1.0-4.8) k/uL Chloride (98-107) mmol/L BUN (9-20) mg/dL Glucose (74-99) mg/dL POC Glucose (mg/dL) 175 H 174 H 171 H (70-110) mg/dL 05/01/24 05/01/24 05/01/24 Range/Units 06:12 10:47 10:47 RBC 3.52 L (4.30-5.90) m/uL Hgb 10.8 L (13.0-17.5) gm/dL Hct 32.9 L (39.0-53.0) % Plt Count 100 L (150-450) k/uL Lymphocytes # 0.9 L (1.0-4.8) k/uL Chloride 117 H (98-107) mmol/L BUN 42 H (9-20) mg/dL Glucose 174 H (74-99) mg/dL POC Glucose (mg/dL) 191 H (70-110) mg/dL 05/01/24 Range/Units 11:42 RBC (4.30-5.90) m/uL Hgb (13.0-17.5) gm/dL Hct (39.0-53.0) % Plt Count (150-450) k/uL Lymphocytes # (1.0-4.8) k/uL Chloride (98-107) mmol/L BUN (9-20) mg/dL Glucose (74-99) mg/dL POC Glucose (mg/dL) 175 H (70-110) mg/dL Microbiology - Last 24 Hours (Table) 04/29/24 08:28 Urine Culture - Final Urine,Voided Klebsiella pneumoniae Assessment and Plan (1) Infection due to ESBL-producing Escherichia coli Current Visit: Yes Status: Acute Code(s): A49.8 - OTHER BACTERIAL INFECTIONS OF UNSPECIFIED SITE; Z16.12 - EXTENDED SPECTRUM BETA LACTAMASE (ESBL) RESISTANCE SNOMED Code(s): 238181474 (2) Allergy to sulfa drugs Current Visit: Yes Status: Acute Code(s): Z88.2 - ALLERGY STATUS TO SULFONAMIDES SNOMED Code(s): 30278075 (3) UTI (urinary tract infection) Current Visit: No Status: Acute Code(s): N39.0 - URINARY TRACT INFECTION, SITE NOT SPECIFIED SNOMED Code(s): 45265992 Plan: 1patient with a positive UA with a culture now showing ESBL Klebsiella patient did have some confusion and mental status changes question of possible symptomatic UTI possible cystitis not behaving as a deep infection such as pyelonephritis 2-discontinue Rocephin 3-we will start the patient on Invanz 1 g daily and see clinical response We will follow on clinical condition and cultures to further adjust medication if needed Thank you for this consultation we will follow the patient along with you Dictation was produced using [employer] dictation software. please excuse any grammatical, word or spelling errors. Time with Patient: Greater than 30
--- NOTE | 2024-05-01 23:12 | PN ---
PROGRESS NOTE DATE OF SERVICE: 05/01/2024 CHIEF COMPLAINT: Urinary tract infection, general debility and weakness. HISTORY OF PRESENT ILLNESS: This gentleman continues to do poorly. He is lethargic. He is being treated for the urinary tract infection. His kidney function is fairly good with a GFR of 69. PHYSICAL EXAMINATION: GENERAL: He is awake and alert, but lethargic. CHEST: Clear. CARDIAC: Normal. ABDOMEN: Soft and nontender. EXTREMITIES: Normal. IMPRESSION: 1. Urinary tract infection. 2. Chronic kidney disease. 3. Insulin-dependent diabetes mellitus. 4. Recent fracture of the right femur. 5. Morbid obesity. 6. Chronic leukemia. PLAN: 1. Continue with IV fluids and antibiotics. 2. Continue to follow renal function. 3. Continue to follow blood sugars. MMODL / IJN: [id number] /
[2024-05-02 06:10] LABS: Glucose,Whole Blood 201 mg/dL (70-110)
[2024-05-02 11:57] LABS: Glucose,Whole Blood 192 mg/dL (70-110)
--- NOTE | 2024-05-02 13:15 | P.PN ---
Subjective Patient is seen for follow-up for acute kidney injury. status post IV fluids. No significant complaints today. Serum creatinine decreased to 1.0 Objective - Vital Signs Vital signs: Vital Signs Temp 98.4 F 05/02/24 08:45 Pulse 100 05/02/24 12:10 Resp 17 05/02/24 12:10 BP 146/68 05/02/24 12:10 Pulse Ox 100 05/02/24 12:10 FiO2 Intake & Output 05/01/24 05/02/24 05/02/24 18:59 06:59 18:59 Intake Total 20 Output Total 1100 650 600 Balance -1080 -650 -600 Weight 125 kg 119.5 kg Intake: Oral 20 Output: Urine 1100 650 600 Other: Voiding Method Indwelling Catheter Indwelling Catheter Indwelling Catheter - Exam Patient is awake, comfortable, no acute distress. 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 Acute kidney injury secondary to ATN secondary to diuresis. Creatinine 2.81 on admission, improved to 1.0 . UA showed hyaline casts. Repeat ultrasound of the kidneys shows no obstructive uropathy and left kidney. Right kidney was again not visualized due to bowel gas 2. Chronic kidney disease stage IV with baseline creatinine near 2 secondary to diabetic kidney disease . 3. Hypokalemia from diuresis. Replaced. 4. Metablic encephalopathy, improved. 5. Hypertension with chronic kidney disease. Stable. 6. Anemia of chronic kidney disease. Hemoglobin at goal 7. Primary hyperparathyroidism status post parathyroidectomy. Calcium at 8.6. Plan: Encourage increased oral intake. Repeat labs in a.m.
[2024-05-02 16:33] LABS: Glucose,Whole Blood 196 mg/dL (70-110)
[2024-05-02] MEDS: FAMOTIDINE 20 MG TAB PO SCH (20:02)
[2024-05-02 20:06] LABS: Glucose,Whole Blood 203 mg/dL (70-110)
--- NOTE | 2024-05-03 01:36 | PN ---
PROGRESS NOTE DATE OF SERVICE: 05/02/2024 CHIEF COMPLAINT: Urinary tract infection, sepsis, acute kidney injury, and delirium. HISTORY OF PRESENT ILLNESS: This gentleman is quite lethargic. His renal function numbers are improving, however. Blood sugars are still slightly elevated, but in a safe range. REVIEW OF SYSTEMS: The patient is only minimally arousable. PHYSICAL EXAMINATION: VITAL SIGNS: Normal. CHEST: Clear. CARDIAC: Normal. ABDOMEN: Protuberant, soft. EXTREMITIES: The right leg is still in splint. IMPRESSION: 1. Urinary tract infection. 2. Sepsis. 3. Encephalopathy. 4. Acute kidney injury. 5. Chronic kidney disease. 6. Type 2 diabetes. 7. Anemia. 8. Fracture of the right distal femur. PLAN: Continue on current program and continue to monitor his renal function. It is hoped that he will be able to return to the skilled nursing for therapy. MMLIZL / KELLYN: [id number] /
[2024-05-03 05:36] LABS: Glucose,Whole Blood 202 mg/dL (70-110)
[2024-05-03 11:38] LABS: ALT 37 U/L (4-49); AST 55 U/L (17-59); African American GFR (CKD) >90 (>60 ml/min/1.73 sqM); Albumin 2.5 g/dL (3.5-5.0); Alkaline Phosphatase 231 U/L (38-126); Anion Gap 4 mmol/L; Blood Urea Nitrogen 24 mg/dL (9-20); Calcium 8.6 mg/dL (8.4-10.2); Carbon Dioxide 25 mmol/L (22-30); Chloride 120 mmol/L (98-107); Glucose 206 mg/dL (74-99); Non-African American GFR(CKD) 82 (>60 ml/min/1.73 sqM); Sodium 149 mmol/L (137-145); Total Bilirubin 0.9 mg/dL (0.2-1.3); Total Protein 5.5 g/dL (6.3-8.2)
[2024-05-03 11:51] LABS: Glucose,Whole Blood 204 mg/dL (70-110)
[2024-05-03 11:52] LABS: Basophils % (A) 1 %; Eosinophils % (A) 1 %; HCT 32.5 % (39.0-53.0); Hypochromasia Moderate; Lymphocytes # (A) 0.9 k/uL (1.0-4.8); Lymphocytes % (A) 13 %; MCH 30.5 pg (25.0-35.0); MCHC 30.8 g/dL (31.0-37.0); Macrocytosis Slight; Mean Platelet Volume 9.9; Monocytes # (A) 0.7 k/uL (0-1.0); Monocytes % (A) 10 %; Neutrophils % (A) 73 %; Platelet Count 110 k/uL (150-450); RBC 3.28 m/uL (4.30-5.90); RDW 15.2 % (11.5-15.5); WBC 6.8 k/uL (3.8-10.6)
[2024-05-03 11:55] LABS: MCV 99.2 fL (80.0-100.0)
--- NOTE | 2024-05-03 12:40 | P.PN ---
Subjective Patient is seen for follow-up for acute kidney injury. status post IV fluids. No significant complaints today. Serum creatinine decreased to 0.9. Sodium has increased to 149. Patient had refused IV service previously. Objective - Vital Signs Vital signs: Vital Signs Temp 98.7 F 05/03/24 11:40 Pulse 92 05/03/24 11:40 Resp 20 05/03/24 11:40 BP 129/64 05/03/24 11:40 Pulse Ox 98 05/03/24 11:40 FiO2 21 05/03/24 08:41 Intake & Output 05/02/24 05/03/24 05/03/24 18:59 06:59 18:59 Intake Total 118 Output Total 950 Balance -832 Weight 119.5 kg Intake: Oral 118 Output: Urine 950 Other: Voiding Method Indwelling Catheter Indwelling Catheter Indwelling Catheter # Bowel Movements 2 - Exam Patient is awake, comfortable, no acute distress. 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90) m/uL Hgb 10.0 L (13.0-17.5) gm/dL Hct 32.5 L (39.0-53.0) % MCHC 30.8 L (31.0-37.0) g/dL Plt Count 110 L (150-450) k/uL Lymphocytes # 0.9 L (1.0-4.8) k/uL Sodium 149 H (137-145) mmol/L Chloride 120 H (98-107) mmol/L BUN 24 H (9-20) mg/dL Glucose 206 H (74-99) mg/dL POC Glucose (mg/dL) 204 H (70-110) mg/dL Alkaline Phosphatase 231 H (38-126) U/L Total Protein 5.5 L (6.3-8.2) g/dL Albumin 2.5 L (3.5-5.0) g/dL Assessment and Plan Assessment: 1. Acute kidney injury secondary to ATN secondary to diuresis. Creatinine 2.81 on admission, improved to 0.9 . UA showed hyaline casts. Repeat ultrasound of the kidneys shows no obstructive uropathy and left kidney. Right kidney was again not visualized due to bowel gas 2. Chronic kidney disease stage IV with baseline creatinine near 2 secondary to diabetic kidney disease . 3. Hypokalemia from diuresis. Replaced. 4. Metablic encephalopathy, improved. 5. Hypertension with chronic kidney disease. Stable. 6. Anemia of chronic kidney disease. Hemoglobin at goal 7. Primary hyperparathyroidism status post parathyroidectomy. Calcium at 8.6. 8. Hypernatremia associated with free water deficit Plan: add D5W at 70 mL an hour Encourage increased oral intake. Repeat labs in a.m.
--- NOTE | 2024-05-03 16:31 | P.PN ---
Subjective Progress Note Date: 05/02/24 Principal diagnosis: Reason for follow-up is ESBL Klebsiella urinary tract infection Patient is a 73-year-old male with a past medical history significant for diabetes mellitus hypertension hyperlipidemia osteoarthritis pneumonia and renal disease leukemia initially presented to the hospital with weakness failure to thrive did have a urine culture positive for ESBL Klebsiella prompting this consultation. On today's evaluation that is 05/02/2024,the patient remains to be afebrile, patient is on room air not requiring supplemental oxygen patient not a very good historian but denies any chest pain or cough no vomiting or diarrhea has been reported. No lab draw today Objective - Vital Signs Vital signs: Vital Signs Temp 98.4 F 05/02/24 08:45 Pulse 100 05/02/24 12:10 Resp 17 05/02/24 12:10 BP 146/68 05/02/24 12:10 Pulse Ox 100 05/02/24 12:10 FiO2 Intake & Output 05/01/24 05/02/24 05/02/24 18:59 06:59 18:59 Intake Total 20 Output Total 1100 650 600 Balance -1080 -650 -600 Weight 125 kg 119.5 kg Intake: Oral 20 Output: Urine 1100 650 600 Other: Voiding Method Indwelling Catheter Indwelling Catheter Indwelling Catheter - Exam GENERAL DESCRIPTION: An elderly male lying in bed in no distress RESPIRATORY SYSTEM: Unlabored breathing , decreased breath sounds at bases HEART: S1 S2 regular rate and rhythm , ABDOMEN: Soft , no tenderness EXTREMITIES: Swelling to the leg but no redness - Labs CBC & Chem 7: 05/03/24 10:50 05/03/24 10:50 Labs: Abnormal Lab Results - Last 24 Hours (Table) 04/29/24 05/01/24 05/01/24 Range/Units 07:37 16:59 20:04 POC Glucose (mg/dL) 210 H 185 H (70-110) mg/dL Vitamin B12 1319.0 H (200.0-944.0) pg/mL 05/02/24 05/02/24 Range/Units 06:08 11:56 POC Glucose (mg/dL) 201 H 192 H (70-110) mg/dL Vitamin B12 (200.0-944.0) pg/mL Microbiology - Last 24 Hours (Table) 04/29/24 08:28 Urine Culture - Final Urine,Voided Klebsiella pneumoniae Assessment and Plan (1) Infection due to ESBL-producing Escherichia coli Current Visit: Yes Status: Acute Code(s): A49.8 - OTHER BACTERIAL INFECTIONS OF UNSPECIFIED SITE; Z16.12 - EXTENDED SPECTRUM BETA LACTAMASE (ESBL) RESISTANCE SNOMED Code(s): 775425159 (2) Allergy to sulfa drugs Current Visit: Yes Status: Acute Code(s): Z88.2 - ALLERGY STATUS TO SULFONAMIDES SNOMED Code(s): 22973311 (3) UTI (urinary tract infection) Current Visit: No Status: Acute Code(s): N39.0 - URINARY TRACT INFECTION, SITE NOT SPECIFIED SNOMED Code(s): 56137154 Plan: 1patient with a positive UA with a culture now showing ESBL Klebsiella patient did have some confusion and mental status changes question of possible symptomatic UTI possible cystitis not behaving as a deep infection such as pyelonephritis 2-patient to continue with Invanz 1 g daily and monitor clinical course closely Dictation was produced using [employer] dictation software. please excuse any g rammatical, word or spelling errors. Time with Patient: Less than 30
--- NOTE | 2024-05-03 16:31 | P.PN ---
Subjective Progress Note Date: 05/03/24 Principal diagnosis: Reason for follow-up is ESBL Klebsiella urinary tract infection Patient is a 73-year-old male with a past medical history significant for diabetes mellitus hypertension hyperlipidemia osteoarthritis pneumonia and renal disease leukemia initially presented to the hospital with weakness failure to thrive did have a urine culture positive for ESBL Klebsiella prompting this consultation. On today's evaluation that is 05/03/2024, the patient continues to be afebrile, the patient is on room air and breathing comfortably, the Pt denies having any chest pain or cough, the patient denies having any abdominal pain no vomiting or any diarrhea has been reported by the nursing staff. Patient white count is 6.8, creatinine 0.91 Objective - Vital Signs Vital signs: Vital Signs Temp 98.7 F 05/03/24 11:40 Pulse 92 05/03/24 11:40 Resp 20 05/03/24 11:40 BP 129/64 05/03/24 11:40 Pulse Ox 98 05/03/24 11:40 FiO2 21 05/03/24 08:41 Intake & Output 05/02/24 05/03/24 05/03/24 18:59 06:59 18:59 Intake Total 118 Output Total 950 Balance -832 Weight 119.5 kg Intake: Oral 118 Output: Urine 950 Other: Voiding Method Indwelling Catheter Indwelling Catheter Indwelling Catheter # Bowel Movements 2 - Exam GENERAL DESCRIPTION: An elderly male lying in bed in no distress RESPIRATORY SYSTEM: Unlabored breathing , decreased breath sounds at bases HEART: S1 S2 regular rate and rhythm , ABDOMEN: Soft , no tenderness EXTREMITIES: Swelling to the leg but no redness - Labs CBC & Chem 7: 05/03/24 10:50 05/03/24 10:50 Labs: Abnormal Lab Results - Last 24 Hours (Table) 05/02/24 05/02/24 05/03/24 Range/Units 16:26 20:05 05:34 RBC (4.30-5.90) m/uL Hgb (13.0-17.5) gm/dL Hct (39.0-53.0) % MCHC (31.0-37.0) g/dL Plt Count (150-450) k/uL Lymphocytes # (1.0-4.8) k/uL Sodium (137-145) mmol/L Chloride (98-107) mmol/L BUN (9-20) mg/dL Glucose (74-99) mg/dL POC Glucose (mg/dL) 196 H 203 H 202 H (70-110) mg/dL Alkaline Phosphatase (38-126) U/L Total Protein (6.3-8.2) g/dL Albumin (3.5-5.0) g/dL 05/03/24 05/03/24 05/03/24 Range/Units 10:50 10:50 11:49 RBC 3.28 L (4.30-5.90) m/uL Hgb 10.0 L (13.0-17.5) gm/dL Hct 32.5 L (39.0-53.0) % MCHC 30.8 L (31.0-37.0) g/dL Plt Count 110 L (150-450) k/uL Lymphocytes # 0.9 L (1.0-4.8) k/uL Sodium 149 H (137-145) mmol/L Chloride 120 H (98-107) mmol/L BUN 24 H (9-20) mg/dL Glucose 206 H (74-99) mg/dL POC Glucose (mg/dL) 204 H (70-110) mg/dL Alkaline Phosphatase 231 H (38-126) U/L Total Protein 5.5 L (6.3-8.2) g/dL Albumin 2.5 L (3.5-5.0) g/dL Assessment and Plan (1) Infection due to ESBL-producing Escherichia coli Current Visit: Yes Status: Acute Code(s): A49.8 - OTHER BACTERIAL INFECTIONS OF UNSPECIFIED SITE; Z16.12 - EXTENDED SPECTRUM BETA LACTAMASE (ESBL) RESISTANCE SNOMED Code(s): 921404780 (2) Allergy to sulfa drugs Current Visit: Yes Status: Acute Code(s): Z88.2 - ALLERGY STATUS TO SULFONAMIDES SNOMED Code(s): 90843754 (3) UTI (urinary tract infection) Current Visit: No Status: Acute Code(s): N39.0 - URINARY TRACT INFECTION, SITE NOT SPECIFIED SNOMED Code(s): 03796601 Plan: 1patient with a positive UA with a culture now showing ESBL Klebsiella patient did have some confusion and mental status changes question of possible symptomatic UTI possible cystitis not behaving as a deep infection such as pyelonephritis 2-patient did have minimal getting improvement, to continue with Invanz 1 g daily to finish a 7-day course of therapy Dictation was produced using [employer] dictation software. please excuse any grammatical, word or spelling errors. Time with Patient: Less than 30
[2024-05-03 17:07] LABS: Glucose,Whole Blood 180 mg/dL (70-110)
[2024-05-03] MEDS: DEXTROSE 5% IN WATER 1,000 ML IV SCH (17:22)
[2024-05-03 20:13] LABS: Glucose,Whole Blood 215 mg/dL (70-110)
--- NOTE | 2024-05-03 22:37 | PN ---
PROGRESS NOTE DATE OF SERVICE: 05/03/2024 CHIEF COMPLAINT: Urinary tract infection, sepsis, dehydration, diabetes, and acute renal failure. HISTORY OF PRESENT ILLNESS: This gentleman is improving on paper. His BUN and creatinine are markedly down, doing much better. However, he still remains lethargic. The only medication that he is on that could account for this at this point is tramadol and this will be stopped. REVIEW OF SYSTEMS: Not obtainable. He is not answering questions, although he is awake and alert and seems oriented. PHYSICAL EXAMINATION: GENERAL: Skin color is normal. CHEST: Clear. CARDIAC: Normal. ABDOMEN: Protuberant, soft, and nontender. IMPRESSION: 1. Urinary tract infection with Klebsiella. 2. Septicemia. 3. Mental status changes. 4. Acute kidney injury. 5. Type 2 diabetes. 6. CML. 7. Lethargy. PLAN: 1. Stop tramadol. 2. Continue with PT and OT. MMCHANDAN / KELLYN: [id number] /
[2024-05-04 06:15] LABS: Glucose,Whole Blood 209 mg/dL (70-110)
[2024-05-04 08:08] LABS: African American GFR (CKD) 86 (>60 ml/min/1.73 sqM); Anion Gap 3 mmol/L; Blood Urea Nitrogen 21 mg/dL (9-20); Calcium 8.7 mg/dL (8.4-10.2); Carbon Dioxide 28 mmol/L (22-30); Chloride 118 mmol/L (98-107); Glucose 219 mg/dL (74-99); Non-African American GFR(CKD) 74 (>60 ml/min/1.73 sqM); Potassium 3.6 mmol/L (3.5-5.1); Sodium 149 mmol/L (137-145)
[2024-05-04 11:38] LABS: Glucose,Whole Blood 245 mg/dL (70-110)
[2024-05-04 14:36] VITALS: BMI 35.9
[2024-05-04 16:34] LABS: Glucose,Whole Blood 231 mg/dL (70-110)
--- NOTE | 2024-05-04 17:36 | P.PN ---
Subjective Patient is seen for follow-up for acute kidney injury. status post IV fluids. No significant complaints today. Serum creatinine decreased to 0.9. Serum sodium remains elevated at 149. Patient has agreed for IV access which is currently in his left arm. He is maintained on D5W. Objective - Vital Signs Vital signs: Vital Signs Temp 98.2 F 05/04/24 16:13 Pulse 92 05/04/24 16:13 Resp 20 05/04/24 16:13 BP 139/74 05/04/24 16:13 Pulse Ox 98 05/04/24 16:13 FiO2 21 05/03/24 08:41 Intake & Output 05/03/24 05/04/24 05/04/24 18:59 06:59 18:59 Intake Total 200 70 Output Total 675 325 Balance -475 -325 70 Weight 120 kg 120 kg Intake: Intake, IV Titration 200 Amount Dextrose 5% in Water 1, 150 000 ml @ 75 mls/hr IV . [id number] [facility] Rx#:[id number] Ertapenem 1 gm In Sodium 50 Chloride 0.9% 50 ml @ 100 mls/hr IVPB DAILY [facility] Rx #:[id number] Oral 70 Output: Urine 675 325 Other: Voiding Method Indwelling Catheter Indwelling Catheter Indwelling Catheter # Bowel Movements 2 1 - Exam Patient is awake, comfortable, no acute distress. Examination of the heart S1 and S2 Examination of the lungs bilateral breath sounds are heard Abdomen is soft nontender Examination of lower extremities shows no significant edema CLEANER exam grossly intact - Labs CBC & Chem 7: 05/03/24 10:50 05/04/24 07:10 Labs: Abnormal Lab Results - Last 24 Hours (Table) 05/03/24 05/04/24 05/04/24 Range/Units 20:11 06:12 07:10 Sodium 149 H (137-145) mmol/L Chloride 118 H (98-107) mmol/L BUN 21 H (9-20) mg/dL Glucose 219 H (74-99) mg/dL POC Glucose (mg/dL) 215 H 209 H (70-110) mg/dL 05/04/24 05/04/24 Range/Units 11:35 16:31 Sodium (137-145) mmol/L Chloride (98-107) mmol/L BUN (9-20) mg/dL Glucose (74-99) mg/dL POC Glucose (mg/dL) 245 H 231 H (70-110) mg/dL Assessment and Plan Assessment: 1. Acute kidney injury secondary to ATN secondary to diuresis. Creatinine 2.81 on admission, improved to 0.9 . UA showed hyaline casts. Repeat ultrasound of the kidneys shows no obstructive uropathy and left kidney. Right kidney was ag ain not visualized due to bowel gas 2. Chronic kidney disease stage IV with baseline creatinine near 2 secondary to diabetic kidney disease . Creatinine has now decreased to 0.9 to 1 mg/dL. 3. Hypokalemia from diuresis. Replaced. 4. Metablic encephalopathy, improved. 5. Hypertension with chronic kidney disease. Stable. 6. Anemia of chronic kidney disease. Hemoglobin at goal 7. Primary hyperparathyroidism status post parathyroidectomy. Calcium at 8.6. 8. Hypernatremia associated with free water deficit Plan: Continue D5W at 75 mL an hour. Okay to continue with IV access in the left arm. Encourage increased oral intake. Repeat labs in a.m.
[2024-05-04 19:46] LABS: Glucose,Whole Blood 287 mg/dL (70-110)
--- NOTE | 2024-05-04 23:22 | PN ---
PROGRESS NOTE CHIEF COMPLAINT: Urinary tract infection, sepsis, fracture of the right leg, and mental status changes with renal failure. HISTORY OF PRESENT ILLNESS: This gentleman's renal failure has improved. It is back to normal. However, he remains lethargic. Tramadol was stopped yesterday. I was notified today that the Orthopedic Surgery suggested several days ago the patient be transferred to orthopedic surgeon in [facility]. However, the patient and his at this point are not willing to proceed with surgery. PHYSICAL EXAMINATION: GENERAL: He is still slightly lethargic. CHEST: He has good breath sounds bilaterally. CARDIAC: Unremarkable. ABDOMEN: Protuberant. EXTREMITIES: Right leg is still in splint. IMPRESSION: 1. Urinary tract infection. 2. Sepsis. 3. Delirium. 4. Acute kidney injury. 5. Diabetes. 6. Delirium. PLAN: Discussed the orthopedic surgery with the patient and his . She has a cold family and they are leaning towards not making the transfer or looking with surgery. I concur with their thoughts because the patient's condition is such that even if his fractures are cured, he is not likely to become ambulatory. The plan is, we will continue to stabilize him and probably send him back to the longterm in the first week, after which further treatment options can be considered. MMODL / IJN: [id number] /
[2024-05-05 05:32] LABS: Glucose,Whole Blood 220 mg/dL (70-110)
--- NOTE | 2024-05-05 09:20 | P.PN ---
Subjective Patient is seen in follow-up for acute kidney injury on chronic kidney disease. Renal function improved. Receiving D5W for hypernatremia. Oral intake poor. present at bedside. Vital signs are stable. General: No acute distress. HEENT: Head exam is unremarkable. ABDOMEN: Obese, nontender. EXTREMITITES: No edema. Objective - Vital Signs Vital signs: Vital Signs Temp 98 F 05/05/24 00:00 Pulse 98 05/05/24 04:00 Resp 20 05/05/24 08:00 BP 164/88 05/05/24 04:00 Pulse Ox 96 05/05/24 04:00 FiO2 21 05/03/24 08:41 Intake & Output 05/04/24 05/05/24 05/05/24 18:59 06:59 18:59 Intake Total 945 Output Total 725 300 Balance 220 -300 Weight 120 kg 120 kg Intake: Intake, IV Titration 875 Amount Dextrose 5% in Water 1, 825 000 ml @ 75 mls/hr IV . [id number] [facility] Rx#:[id number] Ertapenem 1 gm In Sodium 50 Chloride 0.9% 50 ml @ 100 mls/hr IVPB DAILY [facility] Rx #:[id number] Oral 70 Output: Urine 725 300 Other: Voiding Method Indwelling Catheter Indwelling Catheter Indwelling Catheter - Labs CBC & Chem 7: 05/03/24 10:50 05/04/24 07:10 Labs: Abnormal Lab Results - Last 24 Hours (Table) 05/04/24 05/04/24 05/04/24 Range/Units 11:35 16:31 19:44 POC Glucose (mg/dL) 245 H 231 H 287 H (70-110) mg/dL 05/05/24 Range/Units 05:30 POC Glucose (mg/dL) 220 H (70-110) mg/dL Assessment and Plan Plan: Assessment: 1. Acute kidney injury secondary to ATN secondary to diuresis. Renal function improved. No hydronephrosis noted on kidney ultrasound. Right kidney was not visualized due to bowel gas. 2. Chronic kidney disease stage IV baseline creatinine near 2 secondary to diabetic kidney disease. Creatinine now is below baseline. 3. Hypernatremia from lack of oral water intake. 4. Primary hyperparathyroidism status post parathyroidectomy. Calcium level stable. 5. Hypertension with chronic kidney disease. Stable. 6. Gram-negative UTI on antibiotics. 7. Anemia of chronic kidney disease. Plan: Encouraged oral intake, including free water. Maintain D5W. Follow-up morning labs. Voiding trial today. Discussed with nurse. Maintain Flomax. Add Aranesp if hemoglobin drops further. Avoid IV iron in the setting of acute infection.
[2024-05-05 10:13] LABS: African American GFR (CKD) >90 (>60 ml/min/1.73 sqM); Anion Gap 2 mmol/L; Blood Urea Nitrogen 21 mg/dL (9-20); Calcium 8.2 mg/dL (8.4-10.2); Carbon Dioxide 28 mmol/L (22-30); Chloride 116 mmol/L (98-107); Glucose 212 mg/dL (74-99); Magnesium 1.7 mg/dL (1.6-2.3); Non-African American GFR(CKD) 79 (>60 ml/min/1.73 sqM); Potassium 3.7 mmol/L (3.5-5.1); Sodium 146 mmol/L (137-145)
[2024-05-05 11:33] LABS: Glucose,Whole Blood 227 mg/dL (70-110)
--- NOTE | 2024-05-05 14:56 | P.PN ---
Subjective Progress Note Date: 05/04/24 Principal diagnosis: Reason for follow-up is ESBL Klebsiella urinary tract infection Patient is a 73-year-old male with a past medical history significant for diabetes mellitus hypertension hyperlipidemia osteoarthritis pneumonia and renal disease leukemia initially presented to the hospital with weakness failure to thrive did have a urine culture positive for ESBL Klebsiella prompting this consultation. On today's evaluation that is 05/04/2024, Patient is afebrile patient is currently on room air and denies having any shortness of breath, the patient denies any chest pain or cough, the patient denies any nausea vomiting did not have any abdominal pain and no diarrhea. Patient did have a creatinine 0.99 Objective - Vital Signs Vital signs: Vital Signs Temp 98.3 F 05/04/24 11:24 Pulse 91 05/04/24 11:24 Resp 20 05/04/24 11:24 BP 162/79 05/04/24 11:24 Pulse Ox 98 05/04/24 11:24 FiO2 21 05/03/24 08:41 Intake & Output 05/03/24 05/04/24 05/04/24 18:59 06:59 18:59 Intake Total 200 10 Output Total 675 325 Balance -475 -325 10 Weight 120 kg Intake: Intake, IV Titration 200 Amount Dextrose 5% in Water 1, 150 000 ml @ 75 mls/hr IV . [id number] [facility] Rx#:[id number] Ertapenem 1 gm In Sodium 50 Chloride 0.9% 50 ml @ 100 mls/hr IVPB DAILY [facility] Rx #:[id number] Oral 10 Output: Urine 675 325 Other: Voiding Method Indwelling Catheter Indwelling Catheter Indwelling Catheter # Bowel Movements 2 1 - Exam GENERAL DESCRIPTION: An elderly male lying in bed in no distress RESPIRATORY SYSTEM: Unlabored breathing , decreased breath sounds at bases HEART: S1 S2 regular rate and rhythm , ABDOMEN: Soft , no tenderness EXTREMITIES: Swelling to the leg but no redness - Labs CBC & Chem 7: 05/03/24 10:50 05/04/24 07:10 Labs: Abnormal Lab Results - Last 24 Hours (Table) 05/03/24 05/03/24 05/04/24 Range/Units 16:46 20:11 06:12 Sodium (137-145) mmol/L Chloride (98-107) mmol/L BUN (9-20) mg/dL Glucose (74-99) mg/dL POC Glucose (mg/dL) 180 H 215 H 209 H (70-110) mg/dL 05/04/24 05/04/24 Range/Units 07:10 11:35 Sodium 149 H (137-145) mmol/L Chloride 118 H (98-107) mmol/L BUN 21 H (9-20) mg/dL Glucose 219 H (74-99) mg/dL POC Glucose (mg/dL) 245 H (70-110) mg/dL Assessment and Plan (1) Infection due to ESBL-producing Escherichia coli Current Visit: Yes Status: Acute Code(s): A49.8 - OTHER BACTERIAL INFECTIONS OF UNSPECIFIED SITE; Z16.12 - EXTENDED SPECTRUM BETA LACTAMASE (ESBL) RESISTANCE SNOMED Code(s): 718318529 (2) Allergy to sulfa drugs Current Visit: Yes Status: Acute Code(s): Z88.2 - ALLERGY STATUS TO SULFONAMIDES SNOMED Code(s): 12564815 (3) UTI (urinary tract infection) Current Visit: No Status: Acute Code(s): N39.0 - URINARY TRACT INFECTION, SITE NOT SPECIFIED SNOMED Code(s): 72267754 Plan: 1patient with a positive UA with a culture now showing ESBL Klebsiella patient did have some confusion and mental status changes question of possible symptomatic UTI possible cystitis not behaving as a deep infection such as pyelonephritis 2-patient patient did have some clinical improvement plan is to continue with Invanz 1 g daily to finish a 7-day course of therapy Dictation was produced using [employer] dictation software. please excuse any grammatical, word or spelling errors.
--- NOTE | 2024-05-05 14:57 | P.PN ---
Subjective Progress Note Date: 05/05/24 Principal diagnosis: Reason for follow-up is ESBL Klebsiella urinary tract infection Patient is a 73-year-old male with a past medical history significant for diabetes mellitus hypertension hyperlipidemia osteoarthritis pneumonia and renal disease leukemia initially presented to the hospital with weakness failure to thrive did have a urine culture positive for ESBL Klebsiella prompting this consultation. On today's evaluation that is 05/05/2024, patient has been afebrile, patient is breathing comfortably and is currently on room air, patient seem to be sleepy this afternoon apparently the patient did not sleep last night per the family the bedside no vomiting or diarrhea has been reported. Patient creatinine 0.94 Objective - Vital Signs Vital signs: Vital Signs Temp 98.1 F 05/05/24 11:38 Pulse 88 05/05/24 11:38 Resp 18 05/05/24 14:00 BP 167/79 05/05/24 11:38 Pulse Ox 95 05/05/24 11:38 FiO2 21 05/03/24 08:41 Intake & Output 05/04/24 05/05/24 05/05/24 18:59 06:59 18:59 Intake Total 945 Output Total 725 300 Balance 220 -300 Weight 120 kg 120 kg Intake: Intake, IV Titration 875 Amount Dextrose 5% in Water 1, 825 000 ml @ 75 mls/hr IV . [id number] [facility] Rx#:[id number] Ertapenem 1 gm In Sodium 50 Chloride 0.9% 50 ml @ 100 mls/hr IVPB DAILY [facility] Rx #:[id number] Oral 70 Output: Urine 725 300 Other: Voiding Method Indwelling Catheter Indwelling Catheter Indwelling Catheter - Exam GENERAL DESCRIPTION: An elderly male lying in bed in no distress RESPIRATORY SYSTEM: Unlabored breathing , decreased breath sounds at bases HEART: S1 S2 regular rate and rhythm , ABDOMEN: Soft , no tenderness EXTREMITIES: Swelling to the leg but no redness - Labs CBC & Chem 7: 05/03/24 10:50 05/05/24 09:49 Labs: Abnormal Lab Results - Last 24 Hours (Table) 05/04/24 05/04/24 05/05/24 Range/Units 16:31 19:44 05:30 Sodium (137-145) mmol/L Chloride (98-107) mmol/L BUN (9-20) mg/dL Glucose (74-99) mg/dL POC Glucose (mg/dL) 231 H 287 H 220 H (70-110) mg/dL Calcium (8.4-10.2) mg/dL 05/05/24 05/05/24 Range/Units 09:49 11:32 Sodium 146 H (137-145) mmol/L Chloride 116 H (98-107) mmol/L BUN 21 H (9-20) mg/dL Glucose 212 H (74-99) mg/dL POC Glucose (mg/dL) 227 H (70-110) mg/dL Calcium 8.2 L (8.4-10.2) mg/dL Assessment and Plan (1) Infection due to ESBL-producing Escherichia coli Current Visit: Yes Status: Acute Code(s): A49.8 - OTHER BACTERIAL INFECTIONS OF UNSPECIFIED SITE; Z16.12 - EXTENDED SPECTRUM BETA LACTAMASE (ESBL) RESISTANCE SNOMED Code(s): 413203131 (2) Allergy to sulfa drugs Current Visit: Yes Status: Acute Code(s): Z88.2 - ALLERGY STATUS TO SULFONAMIDES SNOMED Code(s): 15489529 (3) UTI (urinary tract infection) Current Visit: No Status: Acute Code(s): N39.0 - URINARY TRACT INFECTION, SITE NOT SPECIFIED SNOMED Code(s): 59868233 Plan: 1patient with a positive UA with a culture now showing ESBL Klebsiella patient did have some confusion and mental status changes question of possible symptomatic UTI possible cystitis not behaving as a deep infection such as pyelonephritis 2-patient to continue with Invanz 1 g daily to finish a 7-day course of therapy and will monitor clinical course closely Family the bedside questions were answered Dictation was produced using [employer] dictation software. please excuse any grammatical, word or spelling errors. Time with Patient: Less than 30
[2024-05-05 16:13] LABS: Glucose,Whole Blood 266 mg/dL (70-110)
[2024-05-05 20:01] LABS: Glucose,Whole Blood 291 mg/dL (70-110)
[2024-05-06 02:05] LABS: Glucose,Whole Blood 219 mg/dL (70-110)
[2024-05-06 04:17] LABS: African American GFR (CKD) 84 (>60 ml/min/1.73 sqM); Anion Gap 2 mmol/L; Blood Urea Nitrogen 21 mg/dL (9-20); Calcium 7.9 mg/dL (8.4-10.2); Carbon Dioxide 25 mmol/L (22-30); Chloride 115 mmol/L (98-107); Glucose 204 mg/dL (74-99); Magnesium 1.6 mg/dL (1.6-2.3); Non-African American GFR(CKD) 73 (>60 ml/min/1.73 sqM); Potassium 3.6 mmol/L (3.5-5.1); Sodium 142 mmol/L (137-145)
[2024-05-06 06:17] LABS: Glucose,Whole Blood 221 mg/dL (70-110)
[2024-05-06] MEDS: INSULIN DETEMIR (LEVEMIR) 100 UNIT/ML SYR SQ SCH (09:29)
[2024-05-06 11:45] LABS: Glucose,Whole Blood 302 mg/dL (70-110)
--- NOTE | 2024-05-06 11:58 | P.PN ---
Subjective Patient is seen in follow-up for acute kidney injury on chronic kidney disease. Renal function stable. Sodium level also improved with D5W. Garcia catheter removed and has been voiding on his own. Mentation improved. Oral intake remains poor. present at bedside. Vital signs are stable. General: No acute distress. HEENT: Head exam is unremarkable. ABDOMEN: Obese, nontender. EXTREMITITES: No edema. Objective - Vital Signs Vital signs: Vital Signs Temp 98.4 F 05/06/24 07:32 Pulse 80 05/06/24 07:32 Resp 15 05/06/24 07:32 BP 154/71 05/06/24 07:32 Pulse Ox 98 05/06/24 07:32 FiO2 21 05/03/24 08:41 Intake & Output 05/05/24 05/06/24 05/06/24 18:59 06:59 18:59 Intake Total 30 Output Total 130 300 Balance -130 -270 Intake: Oral 30 Output: Urine 130 300 Other: Voiding Method Indwelling Catheter Indwelling Catheter # Bowel Movements 1 - Labs CBC & Chem 7: 05/03/24 10:50 05/06/24 03:30 Labs: Abnormal Lab Results - Last 24 Hours (Table) 05/05/24 05/05/24 05/06/24 Range/Units 16:12 19:58 02:04 Chloride (98-107) mmol/L BUN (9-20) mg/dL Glucose (74-99) mg/dL POC Glucose (mg/dL) 266 H 291 H 219 H (70-110) mg/dL Calcium (8.4-10.2) mg/dL 05/06/24 05/06/24 05/06/24 Range/Units 03:30 06:15 11:44 Chloride 115 H (98-107) mmol/L BUN 21 H (9-20) mg/dL Glucose 204 H (74-99) mg/dL POC Glucose (mg/dL) 221 H 302 H (70-110) mg/dL Calcium 7.9 L (8.4-10.2) mg/dL Assessment and Plan Plan: Assessment: 1. Acute kidney injury secondary to ATN secondary to diuresis. Renal function improved. No hydronephrosis noted on kidney ultrasound. Right kidney was not visualized due to bowel gas. 2. Chronic kidney disease stage IV baseline creatinine near 2 secondary to diabetic kidney disease. Creatinine now is below baseline. 3. Hypernatremia from lack of oral water intake. Improved. 4. Primary hyperparathyroidism status post parathyroidectomy. Calcium level stable. 5. Hypertension with chronic kidney disease. Stable. 6. Klebsiella UTI on antibiotics. 7. Anemia of chronic kidney disease. Plan: Encouraged oral intake, including free water. Maintain D5W. Decrease rate to 40 cc an hour. Maintain Flomax. Garcia catheter discontinued May 05, 2024. Add Aranesp if hemoglobin drops further. Avoid IV iron in the setting of acute infection.
[2024-05-06] MEDS: MAGNESIUM OXIDE 400 MG TAB PO SCH (12:25)
--- NOTE | 2024-05-06 12:35 | P.PN ---
Subjective Progress Note Date: 05/06/24 Principal diagnosis: Reason for follow-up is ESBL Klebsiella urinary tract infection Patient is a 73-year-old male with a past medical history significant for diabetes mellitus hypertension hyperlipidemia osteoarthritis pneumonia and renal disease leukemia initially presented to the hospital with weakness failure to thrive did have a urine culture positive for ESBL Klebsiella prompting this consultation. On today's evaluation that is 05/06/2024, Patient is afebrile this morning breathing comfortably on room air the patient is more awake and alert denies any chest pain shortness of breath or cough no abdominal pain or diarrhea has been reported. Patient did have a creatinine 1.01 no CBC was done today Objective - Vital Signs Vital signs: Vital Signs Temp 98.4 F 05/06/24 07:32 Pulse 80 05/06/24 07:32 Resp 15 05/06/24 07:32 BP 154/71 05/06/24 07:32 Pulse Ox 98 05/06/24 07:32 FiO2 21 05/03/24 08:41 Intake & Output 05/05/24 05/06/24 05/06/24 18:59 06:59 18:59 Intake Total 30 Output Total 130 300 Balance -130 -270 Intake: Oral 30 Output: Urine 130 300 Other: Voiding Method Indwelling Catheter Indwelling Catheter Indwelling Catheter # Bowel Movements 1 - Exam GENERAL DESCRIPTION: An elderly male lying in bed in no distress RESPIRATORY SYSTEM: Unlabored breathing , decreased breath sounds at bases HEART: S1 S2 regular rate and rhythm , ABDOMEN: Soft , no tenderness EXTREMITIES: Swelling to the leg but no redness - Labs CBC & Chem 7: 05/03/24 10:50 05/06/24 03:30 Labs: Abnormal Lab Results - Last 24 Hours (Table) 05/05/24 05/05/24 05/06/24 Range/Units 16:12 19:58 02:04 Chloride (98-107) mmol/L BUN (9-20) mg/dL Glucose (74-99) mg/dL POC Glucose (mg/dL) 266 H 291 H 219 H (70-110) mg/dL Calcium (8.4-10.2) mg/dL 05/06/24 05/06/24 05/06/24 Range/Units 03:30 06:15 11:44 Chloride 115 H (98-107) mmol/L BUN 21 H (9-20) mg/dL Glucose 204 H (74-99) mg/dL POC Glucose (mg/dL) 221 H 302 H (70-110) mg/dL Calcium 7.9 L (8.4-10.2) mg/dL Assessment and Plan (1) Infection due to ESBL-producing Escherichia coli Current Visit: Yes Status: Acute Code(s): A49.8 - OTHER BACTERIAL INFECTIONS OF UNSPECIFIED SITE; Z16.12 - EXTENDED SPECTRUM BETA LACTAMASE (ESBL) RESISTANCE SNOMED Code(s): 634885456 (2) Allergy to sulfa drugs Current Visit: Yes Status: Acute Code(s): Z88.2 - ALLERGY STATUS TO SULFONAMIDES SNOMED Code(s): 67421737 (3) UTI (urinary tract infection) Current Visit: No Status: Acute Code(s): N39.0 - URINARY TRACT INFECTION, SITE NOT SPECIFIED SNOMED Code(s): 32086902 Plan: 1patient with a positive UA with a culture now showing ESBL Klebsiella patient did have some confusion and mental status changes question of possible symptomatic UTI possible cystitis not behaving as a deep infection such as pyelonephritis 2-patient seem to have shown some clinical improvement and will continue with Invanz 1 g daily to finish a 7-day course of therapy and continue supportive care Dictation was produced using [employer] dictation software. please excuse any grammatical, word or spelling errors. Time with Patient: Less than 30
[2024-05-06 16:49] LABS: Glucose,Whole Blood 164 mg/dL (70-110)
--- NOTE | 2024-05-06 17:12 | P.CNNES ---
History of Present Illness Consult date: 05/06/24 Reason for Consult: Lethargy, encephalopathy History of Present Illness: The patient is a 73-year-old male who was seen in neurologic consultation on May 06, 2024, in collaboration with Lisa Leblanc, via teleneurology. History is obtained from review of the chart. The patient reportedly has been in the hospital since April 26 when he presented with acute on chronic renal failure and urinary tract infection. He was diagnosed with sepsis. He has reportedly been encephalopathic and lethargic. According to the consultation request, the patient has been more lethargic recently. The patient is unable to provide any history. He does not have any memory of how he got to the hospital or why he came to the hospital. Initial BUN was markedly elevated at 157. Creatinine elevated at 2.81. Urine culture was positive for Klebsiella pneumonia. The patient has a past medical history significant for diabetes mellitus, hypertension, hyperlipidemia, osteoarthritis, pneumonia and renal disease, leukemia. Past Medical History Past Medical History: Asthma, Cancer, Diabetes Mellitus, GERD/Reflux, H yperlipidemia, Hypertension, Osteoarthritis (OA), Pneumonia, Renal Disease, Sleep Apnea/CPAP/BIPAP Additional Past Medical History / Comment(s): [place] leukemia recently diagnosed and started oral chemo 10/10/19, IDDM type II, pt states he occasionally has hypoglycemia during middle of night, arthritis bilateral hands and occasionally in bilateral knees, gout R foot, WILLAM with Cpap use, chronic kidney disease stage 4 with baseline creatinine near 2 due to diabetic kidney disease and chronic interstitial nephritis, anemia History of Any Multi-Drug Resistant Organisms: ESBL Date of last positivie culture/infection: 03/28/24 MDRO Source:: urine Past Surgical History: Cholecystectomy, Hernia Repair Additional Past Surgical History / Comment(s): 09/2019 bone marrow biopsy, incisional hernia, colonoscopy with benign polyps. Right cataract removal with IOL implant. PARATHYROIDECTOMY - July 2023 Past Anesthesia/Blood Transfusion Reactions: No Reported Reaction Past Psychological History: No Psychological Hx Reported Smoking Status: Former smoker Past Alcohol Use History: None Reported Past Drug Use History: None Reported - Past Family History Father Family Medical History: Diabetes Mellitus Additional Family Medical History / Comment(s): Father is 97 yrs old. Mother Family Medical History: Dementia Additional Family Medical History / Comment(s): Mother of dementia at the age of 85yrs. Medications and Allergies Home Medications Medication Instructions Recorded Confirmed Type Colchicine [Colcrys] 0.6 mg PO DAILY 04/12/23 04/26/24 History Famotidine 20 mg PO BID 04/12/23 04/26/24 History Febuxostat [Uloric] 40 mg PO DAILY 04/12/23 04/26/24 History Simvastatin [Zocor] 10 mg PO HS 04/12/23 04/26/24 History Acetaminophen Tab [Tylenol] 650 mg PO Q6H PRN 03/26/24 04/26/24 History DULoxetine HCL [Cymbalta] 60 mg PO DAILY 03/26/24 04/26/24 History Furosemide [Lasix] 40 mg PO BID 03/26/24 04/26/24 History Imatinib Mesylate 300 mg PO HS 03/26/24 04/26/24 History Levothyroxine Sodium 50 mcg PO DAILY 03/26/24 04/26/24 History Lidocaine 4% Patch 1 patch TRANSDERM DAILY 03/26/24 04/26/24 History Magnesium Oxide [Magox 400] 400 mg PO DAILY 03/26/24 04/26/24 History Potassium Chloride 10 meq PO DAILY 03/26/24 04/26/24 History Pregabalin [Lyrica] 100 mg PO BID 03/26/24 04/26/24 History Tamsulosin [Flomax] 0.4 mg PO DAILY 03/26/24 04/26/24 History amLODIPine 10 mg PO DAILY 03/26/24 04/26/24 History bisacodyL [Dulcolax] 10 mg RECTAL DAILY PRN 03/26/24 04/26/24 History hydrALAZINE HCL [Apresoline] 25 mg PO Q8HR@0500,1300,2100 03/26/24 04/26/24 History hydrALAZINE HCL [Apresoline] 50 mg PO Q8HR@0500,1300,2100 03/26/24 04/26/24 History hydroCHLOROthiazide [Hydrodiuril] 25 mg PO DAILY 03/26/24 04/26/24 History rOPINIRole HCL [Requip] 1 mg PO HS 03/26/24 04/26/24 History Baclofen 5 mg PO Q8H PRN 04/26/24 04/26/24 History Darbepoetin Bo [Aranesp] 60 mcg SQ Q14D 04/26/24 04/26/24 History Imipenem/Cilastatin Sodium 500 mg IV Q6H 04/26/24 04/26/24 History [Primaxin] Insulin Detemir [Levemir Flexpen] 26 unit SQ DAILY 04/26/24 04/26/24 History Insulin Lispro [Insulin Lispro 9 unit SQ AC-TID 04/26/24 04/26/24 History Kwikpen U-100] Naloxone HCl [Narcan] 4 mg NASAL DIRECTED PRN 04/26/24 04/26/24 History Ondansetron [Zofran] 4 mg PO Q6H PRN 04/26/24 04/26/24 History Prostat 30 ml PO BID 04/26/24 04/26/24 History Sucralfate [Carafate] 1 gm PO ACHS 04/26/24 04/26/24 History traMADol HCL 50 mg PO Q6H PRN 04/26/24 04/26/24 History Allergies Allergy/AdvReac Type Severity Reaction Status Date / Time TACOS Inhibitors Allergy Unknown Verified 04/26/24 13:12 codeine Allergy Unknown Verified 04/26/24 13:12 lisinopril Allergy Unknown Verified 04/26/24 13:12 oxycodone Allergy Unknown Verified 04/26/24 13:12 sulfamethoxazole Allergy Unknown Verified 04/26/24 13:12 [From Bactrim] trimethoprim [From Bactrim] Allergy Unknown Verified 04/26/24 13:12 TIDE LAUNDRY SOAP Allergy Severe Rash/Hives Uncoded 04/26/24 11:16 Physical Examination - Vital Signs Vital Signs: Vital Signs Temp Pulse Pulse Resp BP BP Pulse Ox 05/06/24 07:32 98.4 F 80 15 154/71 98 05/05/24 23:25 98.0 F 82 17 146/70 98 05/05/24 23:03 130/68 05/05/24 20:00 98 F 90 18 162/77 97 05/05/24 16:00 98.2 F 89 16 159/73 97 05/05/24 14:00 18 Intake and Output 05/05/24 05/06/24 05/06/24 22:59 06:59 14:59 Intake Total 30 Output Total 130 300 Balance -100 -300 Intake: Oral 30 Output: Urine 130 300 Other: Voiding Method Indwelling Catheter Indwelling Catheter Indwelling Catheter # Bowel Movements 1 General: The patient is well-nourished well-developed and in no acute distress HEENT: Head is atraumatic, normocephalic. Fundus not visualized. There is no scleral icterus. Mucous membranes are moist. Neck: Supple without carotid bruits Heart: Regular rate and rhythm Lungs: Essentially clear to auscultation Extremities: There is mild swelling of the left lower extremity. There is a boot, to prevent foot drop. Right lower extremity is not examined secondary to soft cast. Neurological examination Mental status: The patient is awake and alert. He is able to state his name, date of , age. He is not oriented to the current location, year or month. He has difficulty following instructions. There is possible right left confusion. Speech is clear. There is no dysarthria or aphasia. Cranial nerves: Pupils are equal, round and reactive at 4 mm. Visual espinal are full to confrontation. Extraocular movements are intact, though the patient has difficulty tracking. There is no nystagmus. Facial sensation is intact. There is no facial asymmetry. Hearing is grossly intact. Uvula and palate are midline. Shoulder shrug is symmetric. Tongue protrudes midline. Motor: Strength is 4/5 in the upper extremities. Left hip flexor 0-1/5. Right lower extremity strength testing was not carried out. Sensation: Grossly intact to light touch throughout. Coordination: Raelyr-oq-tyia and rapid alternating movements are intact. There is no pronator drift. Deep tendon reflexes: 2+/4+ in the upper extremities. Left patellar reflex is absent. Right patellar reflex not assessed. Gait: Not assessed Results - Laboratory Findings CBC and BMP: 05/03/24 10:50 05/06/24 03:30 Abnormal Lab Findings: Abnormal Labs 04/26/24 04/26/24 04/26/24 11:38 11:38 11:38 WBC RBC 3.85 L Hgb 11.8 L Hct 34.5 L MCHC Plt Count 133 L Lymphocytes # 0.8 L APTT 33.6 H VBG pH VBG HCO3 Sodium 133 L Potassium 2.5 L* Chloride BUN 157 H* Creatinine 2.81 H Glucose 133 H POC Glucose (mg/dL) Hemoglobin A1c Calcium 8.1 L AST 113 H Alkaline Phosphatase 241 H Troponin I Total Protein 5.6 L Albumin 2.7 L Vitamin B12 Urine Protein Urine Blood Ur Leukocyte Esterase Urine RBC Urine WBC Urine WBC Clumps Urine Bacteria Hyaline Casts Urine Mucus 04/26/24 04/26/24 04/26/24 11:38 20:05 20:46 WBC RBC Hgb Hct MCHC Plt Count Lymphocytes # APTT VBG pH VBG HCO3 Sodium Potassium 2.6 L* Chloride BUN Creatinine Glucose POC Glucose (mg/dL) 125 H Hemoglobin A1c Calcium AST Alkaline Phosphatase Troponin I 0.057 H* Total Protein Albumin Vitamin B12 Urine Protein Urine Blood Ur Leukocyte Esterase Urine RBC Urine WBC Urine WBC Clumps Urine Bacteria Hyaline Casts Urine Mucus 04/26/24 04/26/24 04/27/24 20:46 21:50 01:59 WBC RBC Hgb Hct MCHC Plt Count Lymphocytes # APTT VBG pH VBG HCO3 Sodium Potassium Chloride BUN Creatinine Glucose POC Glucose (mg/dL) 113 H Hemoglobin A1c Calcium AST Alkaline Phosphatase Troponin I 0.056 H* Total Protein Albumin Vitamin B12 Urine Protein Urine Blood Trace H Ur Leukocyte Esterase Moderate H Urine RBC 6 H Urine WBC Urine WBC Clumps Urine Bacteria Rare H Hyaline Casts 12 H Urine Mucus 04/27/24 04/27/24 04/27/24 07:59 09:34 09:34 WBC RBC 3.65 L Hgb 10.9 L Hct 34.1 L MCHC Plt Count 117 L Lymphocytes # 0.8 L APTT VBG pH VBG HCO3 Sodium 135 L Potassium Chloride 108 H BUN 142 H* Creatinine 2.55 H Glucose POC Glucose (mg/dL) Hemoglobin A1c 6.4 H Calcium 8.3 L AST Alkaline Phosphatase Troponin I Total Protein Albumin Vitamin B12 Urine Protein Urine Blood Ur Leukocyte Esterase Urine RBC Urine WBC Urine WBC Clumps Urine Bacteria Hyaline Casts Urine Mucus 04/27/24 04/27/24 04/27/24 11:24 11:51 17:05 WBC RBC Hgb Hct MCHC Plt Count Lymphocytes # APTT VBG pH VBG HCO3 Sodium Potassium Chloride BUN Creatinine Glucose POC Glucose (mg/dL) 167 H 149 H Hemoglobin A1c Calcium AST Alkaline Phosphatase Troponin I Total Protein Albumin Vitamin B12 Urine Protein Urine Blood Ur Leukocyte Esterase Small H Urine RBC Urine WBC Urine WBC Clumps Urine Bacteria Hyaline Casts 4 H Urine Mucus 04/27/24 04/28/24 04/28/24 19:48 02:17 06:02 WBC RBC Hgb Hct MCHC Plt Count Lymphocytes # APTT VBG pH VBG HCO3 Sodium Potassium Chloride BUN Creatinine Glucose POC Glucose (mg/dL) 160 H 162 H 130 H Hemoglobin A1c Calcium AST Alkaline Phosphatase Troponin I Total Protein Albumin Vitamin B12 Urine Protein Urine Blood Ur Leukocyte Esterase Urine RBC Urine WBC Urine WBC Clumps Urine Bacteria Hyaline Casts Urine Mucus 04/28/24 04/28/24 04/28/24 07:38 07:38 11:45 WBC 3.6 L RBC 3.62 L Hgb 10.9 L Hct 33.8 L MCHC Plt Count 107 L Lymphocytes # 0.8 L APTT VBG pH VBG HCO3 Sodium Potassium 3.1 L Chloride BUN 113 H* Creatinine 2.15 H Glucose 124 H POC Glucose (mg/dL) 162 H Hemoglobin A1c Calcium AST Alkaline Phosphatase Troponin I Total Protein Albumin Vitamin B12 Urine Protein Urine Blood Ur Leukocyte Esterase Urine RBC Urine WBC Urine WBC Clumps Urine Bacteria Hyaline Casts Urine Mucus 04/28/24 04/28/24 04/29/24 16:45 20:11 01:46 WBC RBC Hgb Hct MCHC Plt Count Lymphocytes # APTT VBG pH VBG HCO3 Sodium Potassium Chloride BUN Creatinine Glucose POC Glucose (mg/dL) 159 H 141 H 158 H Hemoglobin A1c Calcium AST Alkaline Phosphatase Troponin I Total Protein Albumin Vitamin B12 Urine Protein Urine Blood Ur Leukocyte Esterase Urine RBC Urine WBC Urine WBC Clumps Urine Bacteria Hyaline Casts Urine Mucus 04/29/24 04/29/24 04/29/24 06:13 07:18 07:37 WBC 3.2 L RBC 3.43 L Hgb 10.4 L Hct 32.4 L MCHC Plt Count 106 L Lymphocytes # 0.9 L APTT VBG pH VBG HCO3 Sodium Potassium 3.4 L Chloride 110 H BUN 89 H Creatinine 1.82 H Glucose 123 H POC Glucose (mg/dL) 134 H Hemoglobin A1c Calcium AST Alkaline Phosphatase Troponin I Total Protein Albumin Vitamin B12 1319.0 H Urine Protein Urine Blood Ur Leukocyte Esterase Urine RBC Urine WBC Urine WBC Clumps Urine Bacteria Hyaline Casts Urine Mucus 04/29/24 04/29/24 04/29/24 07:43 08:28 11:46 WBC RBC Hgb Hct MCHC Plt Count Lymphocytes # APTT VBG pH 7.45 H VBG HCO3 29 H Sodium Potassium Chloride BUN Creatinine Glucose POC Glucose (mg/dL) 158 H Hemoglobin A1c Calcium AST Alkaline Phosphatase Troponin I Total Protein Albumin Vitamin B12 Urine Protein Trace H Urine Blood Small H Ur Leukocyte Esterase Large H Urine RBC 32 H Urine WBC 108 H Urine WBC Clumps Many H Urine Bacteria Many H Hyaline Casts Urine Mucus Rare H 04/29/24 04/29/24 04/30/24 16:20 20:28 02:01 WBC RBC Hgb Hct MCHC Plt Count Lymphocytes # APTT VBG pH VBG HCO3 Sodium Potassium Chloride BUN Creatinine Glucose POC Glucose (mg/dL) 138 H 152 H 145 H Hemoglobin A1c Calcium AST Alkaline Phosphatase Troponin I Total Protein Albumin Vitamin B12 Urine Protein Urine Blood Ur Leukocyte Esterase Urine RBC Urine WBC Urine WBC Clumps Urine Bacteria Hyaline Casts Urine Mucus 04/30/24 04/30/24 04/30/24 06:17 11:48 16:19 WBC RBC Hgb Hct MCHC Plt Count Lymphocytes # APTT VBG pH VBG HCO3 Sodium Potassium Chloride BUN Creatinine Glucose POC Glucose (mg/dL) 154 H 190 H 175 H Hemoglobin A1c Calcium AST Alkaline Phosphatase Troponin I Total Protein Albumin Vitamin B12 Urine Protein Urine Blood Ur Leukocyte Esterase Urine RBC Urine WBC Urine WBC Clumps Urine Bacteria Hyaline Casts Urine Mucus 04/30/24 05/01/24 05/01/24 20:17 01:58 06:12 WBC RBC Hgb Hct MCHC Plt Count Lymphocytes # APTT VBG pH VBG HCO3 Sodium Potassium Chloride BUN Creatinine Glucose POC Glucose (mg/dL) 174 H 171 H 191 H Hemoglobin A1c Calcium AST Alkaline Phosphatase Troponin I Total Protein Albumin Vitamin B12 Urine Protein Urine Blood Ur Leukocyte Esterase Urine RBC Urine WBC Urine WBC Clumps Urine Bacteria Hyaline Casts Urine Mucus 05/01/24 05/01/24 05/01/24 10:47 10:47 11:42 WBC RBC 3.52 L Hgb 10.8 L Hct 32.9 L MCHC Plt Count 100 L Lymphocytes # 0.9 L APTT VBG pH VBG HCO3 Sodium Potassium Chloride 117 H BUN 42 H Creatinine Glucose 174 H POC Glucose (mg/dL) 175 H Hemoglobin A1c Calcium AST Alkaline Phosphatase Troponin I Total Protein Albumin Vitamin B12 Urine Protein Urine Blood Ur Leukocyte Esterase Urine RBC Urine WBC Urine WBC Clumps Urine Bacteria Hyaline Casts Urine Mucus 05/01/24 05/01/24 05/02/24 16:59 20:04 06:08 WBC RBC Hgb Hct MCHC Plt Count Lymphocytes # APTT VBG pH VBG HCO3 Sodium Potassium Chloride BUN Creatinine Glucose POC Glucose (mg/dL) 210 H 185 H 201 H Hemoglobin A1c Calcium AST Alkaline Phosphatase Troponin I Total Protein Albumin Vitamin B12 Urine Protein Urine Blood Ur Leukocyte Esterase Urine RBC Urine WBC Urine WBC Clumps Urine Bacteria Hyaline Casts Urine Mucus 05/02/24 05/02/24 05/02/24 11:56 16:26 20:05 WBC RBC Hgb Hct MCHC Plt Count Lymphocytes # APTT VBG pH VBG HCO3 Sodium Potassium Chloride BUN Creatinine Glucose POC Glucose (mg/dL) 192 H 196 H 203 H Hemoglobin A1c Calcium AST Alkaline Phosphatase Troponin I Total Protein Albumin Vitamin B12 Urine Protein Urine Blood Ur Leukocyte Esterase Urine RBC Urine WBC Urine WBC Clumps Urine Bacteria Hyaline Casts Urine Mucus 05/03/24 05/03/24 05/03/24 05:34 10:50 10:50 WBC RBC 3.28 L Hgb 10.0 L Hct 32.5 L MCHC 30.8 L Plt Count 110 L Lymphocytes # 0.9 L APTT VBG pH VBG HCO3 Sodium 149 H Potassium Chloride 120 H BUN 24 H Creatinine Glucose 206 H POC Glucose (mg/dL) 202 H Hemoglobin A1c Calcium AST Alkaline Phosphatase 231 H Troponin I Total Protein 5.5 L Albumin 2.5 L Vitamin B12 Urine Protein Urine Blood Ur Leukocyte Esterase Urine RBC Urine WBC Urine WBC Clumps Urine Bacteria Hyaline Casts Urine Mucus 05/03/24 05/03/24 05/03/24 11:49 16:46 20:11 WBC RBC Hgb Hct MCHC Plt Count Lymphocytes # APTT VBG pH VBG HCO3 Sodium Potassium Chloride BUN Creatinine Glucose POC Glucose (mg/dL) 204 H 180 H 215 H Hemoglobin A1c Calcium AST Alkaline Phosphatase Troponin I Total Protein Albumin Vitamin B12 Urine Protein Urine Blood Ur Leukocyte Esterase Urine RBC Urine WBC Urine WBC Clumps Urine Bacteria Hyaline Casts Urine Mucus 05/04/24 05/04/24 05/04/24 06:12 07:10 11:35 WBC RBC Hgb Hct MCHC Plt Count Lymphocytes # APTT VBG pH VBG HCO3 Sodium 149 H Potassium Chloride 118 H BUN 21 H Creatinine Glucose 219 H POC Glucose (mg/dL) 209 H 245 H Hemoglobin A1c Calcium AST Alkaline Phosphatase Troponin I Total Protein Albumin Vitamin B12 Urine Protein Urine Blood Ur Leukocyte Esterase Urine RBC Urine WBC Urine WBC Clumps Urine Bacteria Hyaline Casts Urine Mucus 05/04/24 05/04/24 05/05/24 16:31 19:44 05:30 WBC RBC Hgb Hct MCHC Plt Count Lymphocytes # APTT VBG pH VBG HCO3 Sodium Potassium Chloride BUN Creatinine Glucose POC Glucose (mg/dL) 231 H 287 H 220 H Hemoglobin A1c Calcium AST Alkaline Phosphatase Troponin I Total Protein Albumin Vitamin B12 Urine Protein Urine Blood Ur Leukocyte Esterase Urine RBC Urine WBC Urine WBC Clumps Urine Bacteria Hyaline Casts Urine Mucus 05/05/24 05/05/24 05/05/24 09:49 11:32 16:12 WBC RBC Hgb Hct MCHC Plt Count Lymphocytes # APTT VBG pH VBG HCO3 Sodium 146 H Potassium Chloride 116 H BUN 21 H Creatinine Glucose 212 H POC Glucose (mg/dL) 227 H 266 H Hemoglobin A1c Calcium 8.2 L AST Alkaline Phosphatase Troponin I Total Protein Albumin Vitamin B12 Urine Protein Urine Blood Ur Leukocyte Esterase Urine RBC Urine WBC Urine WBC Clumps Urine Bacteria Hyaline Casts Urine Mucus 05/05/24 05/06/24 05/06/24 19:58 02:04 03:30 WBC RBC Hgb Hct MCHC Plt Count Lymphocytes # APTT VBG pH VBG HCO3 Sodium Potassium Chloride 115 H BUN 21 H Creatinine Glucose 204 H POC Glucose (mg/dL) 291 H 219 H Hemoglobin A1c Calcium 7.9 L AST Alkaline Phosphatase Troponin I Total Protein Albumin Vitamin B12 Urine Protein Urine Blood Ur Leukocyte Esterase Urine RBC Urine WBC Urine WBC Clumps Urine Bacteria Hyaline Casts Urine Mucus 05/06/24 05/06/24 06:15 11:44 WBC RBC Hgb Hct MCHC Plt Count Lymphocytes # APTT VBG pH VBG HCO3 Sodium Potassium Chloride BUN Creatinine Glucose POC Glucose (mg/dL) 221 H 302 H Hemoglobin A1c Calcium AST Alkaline Phosphatase Troponin I Total Protein Albumin Vitamin B12 Urine Protein Urine Blood Ur Leukocyte Esterase Urine RBC Urine WBC Urine WBC Clumps Urine Bacteria Hyaline Casts Urine Mucus Assessment and Plan Assessment: 1. Toxic metabolic encephalopathy-multifactorial, secondary to acute on chronic kidney failure, urinary tract infection, sepsis 2. History of right leg fracture-will be managed medically, per orthopedic surgery 3. History of hypertension 4. History of hyperlipidemia 5. History of chronic renal failure Plan: 1. Primary team is continue treatment of metabolic and infectious disorders 2. There are no focal or lateralizing deficits or signs of seizure, to necessitate further neurologic workup at this time. Neurology will sign off. Please call with questions or concerns. Time with Patient: Greater than 30 (60 minutes were spent caring for this patient today including, obtaining history, examining the patient, reviewing imaging, chart documentation, labs, placing orders and creating this note)
[2024-05-06 21:49] LABS: Glucose,Whole Blood 134 mg/dL (70-110)
[2024-05-07 03:35] LABS: Glucose,Whole Blood 145 mg/dL (70-110)
[2024-05-07 05:46] LABS: Glucose,Whole Blood 141 mg/dL (70-110)
[2024-05-07 09:32] LABS: Blood Urea Nitrogen 19.7 mg/dL (9.0-27.0); Calcium 7.6 mg/dL (8.7-10.3); Carbon Dioxide 25.5 mmol/L (21.6-31.8); Chloride 107 mmol/L (96-109); Glucose 133 mg/dL (70-110); Magnesium 1.7 mg/dL (1.5-2.4); Potassium 3.7 mmol/L (3.5-5.5); Sodium 140 mmol/L (135-145)
[2024-05-07 11:35] LABS: Glucose,Whole Blood 160 mg/dL (70-110)
[2024-05-07 16:36] LABS: Glucose,Whole Blood 162 mg/dL (70-110)
--- NOTE | 2024-05-07 17:38 | P.PN ---
Subjective Progress Note Date: 05/07/24 Principal diagnosis: Reason for follow-up is ESBL Klebsiella urinary tract infection Patient is a 73-year-old male with a past medical history significant for diabetes mellitus hypertension hyperlipidemia osteoarthritis pneumonia and renal disease leukemia initially presented to the hospital with weakness failure to thrive did have a urine culture positive for ESBL Klebsiella prompting this consultation. On today's evaluation that is 05/07/2024,the patient continues to be afebrile patient is breathing comfortably on room air patient is currently sleepy lethargic and did not answer any question no vomiting or diarrhea has been reported has been concerned about patient decreased urine output and decreased oral intake. Patient did have a creatinine 1.0 no CBC was done today Objective - Vital Signs Vital signs: Vital Signs Temp 97.9 F 05/07/24 07:26 Pulse 92 05/07/24 07:26 Resp 18 05/07/24 07:26 BP 152/74 05/07/24 07:26 Pulse Ox 98 05/07/24 09:15 FiO2 21 05/03/24 08:41 Intake & Output 05/06/24 05/07/24 05/07/24 18:59 06:59 18:59 Other: Voiding Method Indwelling Catheter Diaper Diaper # Voids 4 2 # Bowel Movements 2 1 - Exam GENERAL DESCRIPTION: An elderly male lying in bed in no distress RESPIRATORY SYSTEM: Unlabored breathing , decreased breath sounds at bases HEART: S1 S2 regular rate and rhythm , ABDOMEN: Soft , no tenderness EXTREMITIES: Swelling to the leg but no redness - Labs CBC & Chem 7: 05/03/24 10:50 05/07/24 04:39 Labs: Abnormal Lab Results - Last 24 Hours (Table) 05/06/24 05/06/24 05/07/24 Range/Units 16:47 21:46 03:33 Glucose (70-110) mg/dL POC Glucose (mg/dL) 164 H 134 H 145 H (70-110) mg/dL Calcium (8.7-10.3) mg/dL 05/07/24 05/07/24 05/07/24 Range/Units 04:39 05:44 11:33 Glucose 133 H (70-110) mg/dL POC Glucose (mg/dL) 141 H 160 H (70-110) mg/dL Calcium 7.6 L (8.7-10.3) mg/dL Assessment and Plan (1) Infection due to ESBL-producing Escherichia coli Current Visit: Yes Status: Acute Code(s): A49.8 - OTHER BACTERIAL INFECTIONS OF UNSPECIFIED SITE; Z16.12 - EXTENDED SPECTRUM BETA LACTAMASE (ESBL) RESISTANCE SNOMED Code(s): 759868302 (2) Allergy to sulfa drugs Current Visit: Yes Status: Acute Code(s): Z88.2 - ALLERGY STATUS TO SULFONAMIDES SNOMED Code(s): 21503485 (3) UTI (urinary tract infection) Current Visit: No Status: Acute Code(s): N39.0 - URINARY TRACT INFECTION, SITE NOT SPECIFIED SNOMED Code(s): 89309542 Plan: 1patient with a positive UA with a culture now showing ESBL Klebsiella patient did have some confusion and mental status changes question of possible symptomatic UTI possible cystitis not behaving as a deep infection such as pyelonephritis 2-patient to continue with Invanz 1 g daily and continue supportive care Dictation was produced using [employer] dictation software. please excuse any grammatical, word or spelling errors. Time with Patient: Less than 30
--- NOTE | 2024-05-07 20:05 | CDI ---
Documentation Clarification Form Date: 05/07/2024 07:26:39 PM From: Meena Vasquez RN CCDS Phone: [phone] Admit Date: 04/26/2024 12:56:00 PM Patient Name: Maulik Ascencio Visit Number: [id number] Discharge Date: ATTENTION: The Clinical Documentation Specialists (CDI) and [facility] Coding Staff appreciate your assistance in clarifying documentation. Please respond to the clarification below the line at the bottom and electronically sign. The CDI & [facility] Coding staff will review the response and follow-up if needed. Please note: Queries are made part of the Legal Health Record. If you have any questions, please contact the author of this message via ITS. Dr. Dwyane Castellano UTI is documented 04/27, Medicine progress note. For each diagnosis, documentation must be clear to determine if the condition was present at the time of the patients inpatient admission or developed during the hospital stay. Additional clarification regarding the UTI is requested. History/Risk Factors: 73 year old male presents to the ED Clinical Indicators: Medicine note 04/27: was suspecting UTI however patient denies any urinary symptoms, neither currently nor before. No fever no leukocytosis. Currently antibiotics has more risk than benefit however patient at risk of UTI given his Cortes catheter and bedridden situation. Medicine note 04/29: Acute urinary tract infection associated with Cortes catheter. Urinalysis: 04/26: Colorless clear, Blood trace, Leukocyte Esterase Moderate, Rbc 4, Bacteria rare, Hyaline casts 12 04/27: Colorless clear, Leukocyte Esterase small, Hyaline cast 4, 04/29: Colorless turbid, Protein trace, Blood small, Leukocyte Esterase Large, Rbc 32, Wbc 108, Wbc Clumps Many, Urine Bacteria Many, Urine Mucus rare. Urine culture: 04/29 Klebsiella pneumoniae Lab results: 04/26 Wbc 6.2 04/29 Nursing catheter assessment: Date of insertion 04/24 admitted with chronic cortes patent draining; 04/29 catheter changed. Treatment: 04/26 0.09 NS 500 cc IV Bolus x 2; 04/29 Ceftriaxone IVPB Q24H; 05/01 Ertapenem IVPB Daily; 04/29 Changed Cortes Catheter Definition of Present on Admission (POA): A diagnosis present at the time the order for admission to inpatient status was written. Please clarify if the UTI Cortes Catheter was POA [ ] Y = Yes, the condition was present at the time of the order for inpatient admission. [ ] N = No, the condition was not present at the time of the order for inpatient admission. [ ] W = Clinically undetermined if the condition was present at the time of the order for inpatient admission. (Template Last Revised: December 2020) MTDD
[2024-05-07 20:40] LABS: Glucose,Whole Blood 148 mg/dL (70-110)
[2024-05-08 02:12] LABS: Glucose,Whole Blood 135 mg/dL (70-110)
--- NOTE | 2024-05-08 02:22 | PN ---
PROGRESS NOTE DATE OF SERVICE: 05/05/2024 CHIEF COMPLAINT: 1. Encephalopathy. 2. Klebsiella urinary tract infection. 3. Septicemia. 4. History of insulin-dependent diabetes mellitus. 5. Paraplegia. 6. Fracture of the right distal femur. HISTORY OF PRESENT ILLNESS: This gentleman is staying just about the same. Blood sugars are up slightly. His says that he complains almost every night of cramping pain in the left leg. The orthopedist has recommended transferring him to a tertiary hospital to have surgery on the right leg, but the and the patient want to hold off. She accurately states he probably never will walk again. PHYSICAL EXAMINATION: GENERAL: He remains lethargic. CHEST: Clear. CARDIAC: Unremarkable. ABDOMEN: Soft, nontender. IMPRESSION: 1. Delirium. 2. Urinary tract infection with Klebsiella. 3. Possible sepsis. 4. Morbid obesity. 5. Uncontrolled diabetes mellitus. 6. CML. 7. CKD-improving. PLAN: 1. Try increasing his Requip to t.i.d. to see if it helps with the cramps. 2. Add 8 units of long-acting insulin. 3. Talk about discharge planning. If he does not make any further improvement, we will probably send him back to the alf for potential further rehabilitation. MMODL / IJN: [id number] /
--- NOTE | 2024-05-08 02:45 | PN ---
PROGRESS NOTE DATE OF SERVICE: 05/06/2024 CHIEF COMPLAINT: Delirium, encephalopathy, and urinary tract and infection. HISTORY OF PRESENT ILLNESS: This gentleman seems to be a little bit more alert today. PHYSICAL EXAMINATION: VITAL SIGNS: Normal. CHEST: Clear. CARDIAC: Normal. ABDOMEN: Soft and protuberant. IMPRESSION: 1. Encephalopathy. 2. Delirium. 3. Urinary tract infection with Klebsiella. 4. Septicemia. 5. CML. 6. Uncontrolled diabetes. 7. Fracture of the right femur. 8. CKD. PLAN: Continue to follow his activity and numbers and we [facility] be [facility]. MMODL / IJN: [id number] /
--- NOTE | 2024-05-08 02:58 | PN ---
PROGRESS NOTE CHIEF COMPLAINT: Encephalopathy, diabetes, renal failure, and CML. HISTORY OF PRESENT ILLNESS: This gentleman is doing fairly well and he is fairly stable. There has been no interval change. He has been started on a low dose of Levemir. PHYSICAL EXAMINATION: PSYCHIATRIC: His mentation seems to be about the same or slightly better. He does not have any focal neurologic deficits. CHEST: Clear. CARDIAC: Normal. ABDOMEN: Soft, nontender. IMPRESSION: 1. Encephalopathy. 2. Klebsiella urinary tract infection. 3. Sepsis. 4. CKD. 5. Obesity. 6. Fracture of the right femur. 7. CML. PLAN: Continue to try to improve his mentation activity. MMODL / IJN: [id number] /
[2024-05-08 05:47] LABS: Glucose,Whole Blood 129 mg/dL (70-110)
[2024-05-08 11:42] LABS: Glucose,Whole Blood 151 mg/dL (70-110)
--- NOTE | 2024-05-08 13:23 | P.PN ---
Subjective Patient is seen in follow-up for acute kidney injury on chronic kidney disease. Renal function stable as of yesterday. Sodium level also improved with D5W. Mentation improved. Oral intake just fair. present at bedside. Vital signs are stable. General: No acute distress. HEENT: Head exam is unremarkable. ABDOMEN: Obese, nontender. EXTREMITITES: No edema. Objective - Vital Signs Vital signs: Vital Signs Temp 98.3 F 05/08/24 07:07 Pulse 83 05/08/24 07:07 Resp 17 05/08/24 07:07 BP 148/71 05/08/24 07:07 Pulse Ox 98 05/08/24 07:07 FiO2 21 05/03/24 08:41 Intake & Output 05/07/24 05/08/24 05/08/24 18:59 06:59 18:59 Weight 120 kg Other: Voiding Method Diaper Indwelling Catheter Indwelling Catheter # Voids 1 6 # Bowel Movements 1 1 # Emeses 1 - Labs CBC & Chem 7: 05/03/24 10:50 05/07/24 04:39 Labs: Abnormal Lab Results - Last 24 Hours (Table) 05/07/24 05/07/24 05/08/24 Range/Units 16:34 20:35 02:11 POC Glucose (mg/dL) 162 H 148 H 135 H (70-110) mg/dL 05/08/24 05/08/24 Range/Units 05:45 11:41 POC Glucose (mg/dL) 129 H 151 H (70-110) mg/dL Assessment and Plan Plan: Assessment: 1. Acute kidney injury secondary to ATN secondary to diuresis. Renal function improved. Creatinine 1.0 dated May 07, 2024. No hydronephrosis noted on kidney ultrasound. Right kidney was not visualized due to bowel gas. 2. Chronic kidney disease stage IV baseline creatinine near 2 secondary to diabetic kidney disease. Creatinine now is below baseline. 3. Hypernatremia from lack of oral water intake. Improved. 4. Primary hyperparathyroidism status post parathyroidectomy. Calcium level stable. 5. Hypertension with chronic kidney disease. Stable. 6. Klebsiella UTI on antibiotics. 7. Anemia of chronic kidney disease. Plan: Encouraged oral intake, including free water. Hep-Lock IV fluids. Maintain Flomax. Garcia catheter discontinued May 05, 2024. Add Aranesp if hemoglobin drops further. Avoid IV iron in the setting of acute infection. Repeat labs in the morning.
--- NOTE | 2024-05-08 15:48 | P.PN ---
Subjective Progress Note Date: 05/08/24 Principal diagnosis: Reason for follow-up is ESBL Klebsiella urinary tract infection Patient is a 73-year-old male with a past medical history significant for diabetes mellitus hypertension hyperlipidemia osteoarthritis pneumonia and renal disease leukemia initially presented to the hospital with weakness failure to thrive did have a urine culture positive for ESBL Klebsiella prompting this consultation. On today's evaluation that is 05/08/2024,the patient remains to be afebrile, patient is on room air not requiring supplemental oxygen patient is more awake alert today denies any shortness of breath no chest pain or cough.Patient denies having any nausea or vomiting, no abdominal pain and no diarrhea has been reported by the nursing staff. No new lab has been obtained today Objective - Vital Signs Vital signs: Vital Signs Temp 98.5 F 05/08/24 13:11 Pulse 80 05/08/24 13:11 Resp 15 05/08/24 13:11 BP 145/78 05/08/24 13:11 Pulse Ox 99 05/08/24 13:11 FiO2 21 05/03/24 08:41 Intake & Output 05/07/24 05/08/24 05/08/24 18:59 06:59 18:59 Weight 120 kg Other: Voiding Method Diaper Indwelling Catheter Indwelling Catheter # Voids 1 6 # Bowel Movements 1 1 # Emeses 1 - Exam GENERAL DESCRIPTION: An elderly male lying in bed in no distress RESPIRATORY SYSTEM: Unlabored breathing , decreased breath sounds at bases HEART: S1 S2 regular rate and rhythm , ABDOMEN: Soft , no tenderness EXTREMITIES: Swelling to the leg but no redness - Labs CBC & Chem 7: 05/03/24 10:50 05/07/24 04:39 Labs: Abnormal Lab Results - Last 24 Hours (Table) 05/07/24 05/07/24 05/08/24 Range/Units 16:34 20:35 02:11 POC Glucose (mg/dL) 162 H 148 H 135 H (70-110) mg/dL 05/08/24 05/08/24 Range/Units 05:45 11:41 POC Glucose (mg/dL) 129 H 151 H (70-110) mg/dL Assessment and Plan (1) Infection due to ESBL-producing Escherichia coli Current Visit: Yes Status: Acute Code(s): A49.8 - OTHER BACTERIAL INFECTIONS OF UNSPECIFIED SITE; Z16.12 - EXTENDED SPECTRUM BETA LACTAMASE (ESBL) RESISTANCE SNOMED Code(s): 598576178 (2) Allergy to sulfa drugs Current Visit: Yes Status: Acute Code(s): Z88.2 - ALLERGY STATUS TO SULFONAMIDES SNOMED Code(s): 37144587 (3) UTI (urinary tract infection) Current Visit: No Status: Acute Code(s): N39.0 - URINARY TRACT INFECTION, SI TE NOT SPECIFIED SNOMED Code(s): 60885944 Plan: 1patient with a positive UA with a culture now showing ESBL Klebsiella patient did have some confusion and mental status changes question of possible symptomatic UTI possible cystitis not behaving as a deep infection such as pyelonephritis 2-patient to continue with Invanz 1 g daily to finish his course of therapy and monitor clinical course closely at the bedside questions answered Dictation was produced using [employer] dictation software. please excuse any grammatical, word or spelling errors. Time with Patient: Less than 30
[2024-05-08 16:38] LABS: Glucose,Whole Blood 112 mg/dL (70-110)
[2024-05-08 20:25] LABS: Glucose,Whole Blood 100 mg/dL (70-110)
[2024-05-09 03:06] LABS: Glucose,Whole Blood 115 mg/dL (70-110)
[2024-05-09 06:21] LABS: Glucose,Whole Blood 122 mg/dL (70-110)
[2024-05-09 08:09] VITALS: BP 134/78; PULSE 95; RESP 16; TEMP 98.3
--- NOTE | 2024-05-09 08:28 | DS ---
DISCHARGE SUMMARY CHIEF COMPLAINT: Lethargy and urinary tract infection. HISTORY OF PRESENT ILLNESS AND PHYSICAL EXAMINATION: Details of this man's history and physical can be found in the initial workup. LABORATORY STUDIES: While he is in the hospital, he had laboratory studies, details of which can be found in the laboratory section of his chart. COURSE IN HOSPITAL: After admission, he was placed on bedrest, started on intravenous fluids and IV antibiotics, responsive to Klebsiella. He was seen and followed by Infectious Disease. He was also followed by Cardiology and pulmonology as well as Nephrology. In the hospital, he remained quite lethargic. He was in acute kidney failure initially and his renal function very slowly started to come down to normal. Blood sugars were elevated, but these were kept under reasonably good control. He was seen by Orthopedics for the right leg and at one point, recommended that he be transferred to [facility] for surgery, but given his poor prognosis, he and his family decided to elect DICTATION ENDS HERE HEBERT / ETHEL: [id number] /
[2024-05-09 08:41] LABS: Basophils # (A) 0.03 X 10*3/uL (0.00-0.10); Basophils % (A) 0.5 %; Eosinophils # (A) 0.22 X 10*3/uL (0.04-0.35); Eosinophils % (A) 3.5 %; HCT 27.3 % (39.6-50.0); HGB 8.9 g/dL (13.0-17.0); Lymphocytes # (A) 0.82 X 10*3/uL (0.90-5.00); Lymphocytes % (A) 13.2 %; MCH 30.4 pg (27.0-32.0); MCHC 32.6 g/dL (32.0-37.0); MCV 93.2 FL (80.0-97.0); Mean Platelet Volume 11.3 FL (9.5-12.2); Monocytes # (A) 0.98 X 10*3/uL (0.20-1.00); Monocytes % (A) 15.8 %; NRBC Per 100 WBC 0 X 10*3/uL (0.00-0.01); Neutrophils # (A) 4.09 X 10*3/uL (1.80-7.70); Platelet Count 208 X 10*3/uL (140-440); RBC 2.93 X 10*6/uL (4.40-5.60); RDW 15.1 % (11.5-14.5)
[2024-05-09 09:24] LABS: BUN/Creat Ratio 15.82 Ratio (12.00-20.00); Blood Urea Nitrogen 17.4 mg/dL (9.0-27.0); Chloride 104 mmol/L (96-109); Glucose 108 mg/dL (70-110); Potassium 4.1 mmol/L (3.5-5.5); Sodium 136 mmol/L (135-145)
[2024-05-09 09:25] LABS: Calcium 7.6 mg/dL (8.7-10.3); Carbon Dioxide 23.6 mmol/L (21.6-31.8); Magnesium 1.7 mg/dL (1.5-2.4)
[2024-05-09 11:22] LABS: Glucose,Whole Blood 154 mg/dL (70-110)
--- NOTE | 2024-05-09 12:05 | P.PN ---
Subjective Progress Note Date: 05/09/24 Principal diagnosis: Reason for follow-up is ESBL Klebsiella urinary tract infection Patient is a 73-year-old male with a past medical history significant for diabetes mellitus hypertension hyperlipidemia osteoarthritis pneumonia and renal disease leukemia initially presented to the hospital with weakness failure to thrive did have a urine culture positive for ESBL Klebsiella prompting this consultation. On today's evaluation that is 05/09/2024, the patient continues to be afebrile, the patient is on room air and breathing comfortably, the Pt denies having any chest pain or cough, the patient denies having any abdominal pain no vomiting or any diarrhea has been reported by the nursing staff. Patient white count 6.20, creatinine is 1.1 Objective - Vital Signs Vital signs: Vital Signs Temp 98.3 F 05/09/24 07:44 Pulse 95 05/09/24 07:44 Resp 16 05/09/24 07:44 BP 134/78 05/09/24 07:44 Pulse Ox 98 05/09/24 07:44 FiO2 21 05/03/24 08:41 Intake & Output 05/08/24 05/09/24 05/09/24 18:59 06:59 18:59 Intake Total 120 Balance 120 Intake: Oral 120 Other: Voiding Method Indwelling Catheter # Voids 3 1 # Bowel Movements 1 # Emeses 1 - Exam GENERAL DESCRIPTION: An elderly male lying in bed in no distress RESPIRATORY SYSTEM: Unlabored breathing , decreased breath sounds at bases HEART: S1 S2 regular rate and rhythm , ABDOMEN: Soft , no tenderness EXTREMITIES: Swelling to the leg but no redness - Labs CBC & Chem 7: 05/09/24 03:44 05/09/24 03:44 Labs: Abnormal Lab Results - Last 24 Hours (Table) 05/08/24 05/09/24 05/09/24 Range/Units 16:36 03:04 03:44 RBC 2.93 L (4.40-5.60) X 10*6/uL Hgb 8.9 L (13.0-17.0) g/dL Hct 27.3 L (39.6-50.0) % RDW 15.1 H (11.5-14.5) % Immature Gran # 0.06 H (0.00-0.04) X 10*3/uL Lymphocytes # 0.82 L (0.90-5.00) X 10*3/uL POC Glucose (mg/dL) 112 H 115 H (70-110) mg/dL Calcium (8.7-10.3) mg/dL 05/09/24 05/09/24 05/09/24 Range/Units 03:44 06:19 11:20 RBC (4.40-5.60) X 10*6/uL Hgb (13.0-17.0) g/dL Hct (39.6-50.0) % RDW (11.5-14.5) % Immature Gran # (0.00-0.04) X 10*3/uL Lymphocytes # (0.90-5.00) X 10*3/uL POC Glucose (mg/dL) 122 H 154 H (70-110) mg/dL Calcium 7.6 L (8.7-10.3) mg/dL Assessment and Plan (1) Infection due to ESBL-producing Escherichia coli Status: Acute Code(s): A49.8 - OTHER BACTERIAL INFECTIONS OF UNSPECIFIED SITE; Z16.12 - EXTENDED SPECTRUM BETA LACTAMASE (ESBL) RESISTANCE SNOMED Code(s): 222440432 (2) Allergy to sulfa drugs Status: Acute Code(s): Z88.2 - ALLERGY STATUS TO SULFONAMIDES SNOMED Code(s): 24488502 (3) UTI (urinary tract infection) Status: Acute Code(s): N39.0 - URINARY TRACT INFECTION, SITE NOT SPECIFIED SNOMED Code(s): 98171586 Plan: 1patient with a positive UA with a culture now showing ESBL Klebsiella patient did have some confusion and mental status changes question of possible symptomatic UTI possible cystitis not behaving as a deep infection such as pyelo nephritis 2-patient has received adequate antibiotic therapy for his ESBL Klebsiella UTI no need for any antibiotic continuation on discharge discussed with the nursing staff as well as with the at the bedside Dictation was produced using [email or web address] dictation software. please excuse any grammatical, word or spelling errors. Time with Patient: Less than 30
--- NOTE | 2024-05-14 01:49 | MISC ---
MISCELLANOUS REPORT Yes, contusion was present at that time of the order for inpatient admission. MMODL / IJN: [id number] /
--- NOTE | 2024-05-15 16:01 | CDI ---
Documentation Clarification Form Date: 05/07/2024 07:26:00 PM From: Meena Vasquez Phone: [phone] Admit Date: 04/26/2024 12:56:00 PM Patient Name: Maulik Ascencio Visit Number: [id number] Discharge Date: 05/09/2024 11:30:00 AM ATTENTION: The Clinical Documentation Specialists (CDI) and [facility] Coding Staff appreciate your assistance in clarifying documentation. Please respond to the clarification below the line at the bottom and electronically sign. The [facility] & [facility] Coding staff will review the response and follow-up if needed. Please note: Queries are made part of the Legal Health Record. If you have any questions, please contact the author of this message via ITS. Doctor/Provider: Dwayne Castellano Documentation Clarification Form Date: 05/07/2024 07:26:39 PM From: Meena Vasquez RN CCDS Phone: [phone] Admit Date: 04/26/2024 12:56:00 PM Patient Name: Maulik Ascencio Visit Number: [id number] Discharge Date: ATTENTION: The Clinical Documentation Specialists (CDI) and [facility] Coding Staff appreciate your assistance in clarifying documentation. Please respond to the clarification below the line at the bottom and electronically sign. The [facility] & [facility] Coding staff will review the response and follow-up if needed. Please note: Queries are made part of the Legal Health Record. If you have any questions, please contact the author of this message via ITS. Dr. Dwayne Castellano UTI is documented 04/27, Medicine progress note. For each diagnosis, documentation must be clear to determine if the condition was present at the time of the patients inpatient admission or developed during the hospital stay. Additional clarification regarding the UTI is requested. History/Risk Factors: 73 year old male presents to the ED Clinical Indicators: Medicine note 04/27: was suspecting UTI however patient denies any urinary symptoms, neither currently nor before. No fever no leukocytosis. Currently antibiotics has more risk than benefit however patient at risk of UTI given his Cortes catheter and bedridden situation. Medicine note 04/29: Acute urinary tract infection associated with Cortes catheter. Urinalysis: 04/26: Colorless clear, Blood trace, Leukocyte Esterase Moderate, Rbc 4, Bacteria rare, Hyaline casts 12 04/27: Colorless clear, Leukocyte Esterase small, Hyaline cast 4, 04/29: Colorless turbid, Protein trace, Blood small, Leukocyte Esterase Large, Rbc 32, Wbc 108, Wbc Clumps Many, Urine Bacteria Many, Urine Mucus rare. Urine culture: 04/29 Klebsiella pneumoniae Lab results: 04/26 Wbc 6.2 04/29 Nursing catheter assessment: Date of insertion 04/24 admitted with chronic cortes patent draining; 04/29 catheter changed. Treatment: 04/26 0.09 NS 500 cc IV Bolus x 2; 04/29 Ceftriaxone IVPB Q24H; 05/01 Ertapenem IVPB Daily; 04/29 Changed Cortes Catheter Definition of Present on Admission (POA): A diagnosis present at the time the order for admission to inpatient status was written. Please clarify if the UTI Cortes Catheter was POA [ ] Y = Yes, the condition was present at the time of the order for inpatient admission. [ ] N = No, the condition was not present at the time of the order for inpatient admission. [ ] W = Clinically undetermined if the condition was present at the time of the order for inpatient admission. (Template Last Revised: December 2020) MTDD
--- NOTE | 2024-06-21 12:59 | MISC ---
MISCELLANOUS REPORT Condition was present at the time of the order and inpatient admission. MMODL / IJN: [id number] /
== END 2024-05-09 11:30 | DRG 698 ==
LOC: EC 11:06 → 3SCARD 12:56 → 4SSUR 05-05 22:48
PROVIDERS: ADMIT Family Medicine; ATTEND Family Medicine
PROC: 05HY33Z Insertion of Infusion Device into Upper Vein, Percutaneous Approach (ICD-10-PCS; principal; 2024-05-02 13:45)
DX: T83.511A Infection and inflammatory reaction due to indwelling urethral catheter, initial encounter (principal); A41.9 Sepsis, unspecified organism; N17.0 Acute kidney failure with tubular necrosis; G92.8 Other toxic encephalopathy; S72.401A Unspecified fracture of lower end of right femur, initial encounter for closed fracture; S42.401A Unspecified fracture of lower end of right humerus, initial encounter for closed fracture; G82.20 Paraplegia, unspecified; Z16.12 Extended spectrum beta lactamase (ESBL) resistance; E87.0 Hyperosmolality and hypernatremia; C92.10 Chronic myeloid leukemia, BCR/ABL-positive, not having achieved remission; N18.4 Chronic kidney disease, stage 4 (severe); N11.9 Chronic tubulo-interstitial nephritis, unspecified; N39.0 Urinary tract infection, site not specified; E11.22 Type 2 diabetes mellitus with diabetic chronic kidney disease; I12.9 Hypertensive chronic kidney disease with stage 1 through stage 4 chronic kidney disease, or unspecified chronic kidney disease; E03.9 Hypothyroidism, unspecified; D63.1 Anemia in chronic kidney disease; E21.0 Primary hyperparathyroidism; F03.90 Unspecified dementia, unspecified severity, without behavioral disturbance, psychotic disturbance, mood disturbance, and anxiety; E11.649 Type 2 diabetes mellitus with hypoglycemia without coma; E66.01 Morbid (severe) obesity due to excess calories; Z68.35 Body mass index [BMI] 35.0-35.9, adult; Z79.4 Long term (current) use of insulin; B96.1 Klebsiella pneumoniae [K. pneumoniae] as the cause of diseases classified elsewhere; E78.5 Hyperlipidemia, unspecified; M19.90 Unspecified osteoarthritis, unspecified site; E87.6 Hypokalemia; T50.2X5A Adverse effect of carbonic-anhydrase inhibitors, benzothiadiazides and other diuretics, initial encounter; W19.XXXA Unspecified fall, initial encounter; R62.7 Adult failure to thrive; R13.10 Dysphagia, unspecified; M19.042 Primary osteoarthritis, left hand; M19.041 Primary osteoarthritis, right hand; M17.0 Bilateral primary osteoarthritis of knee; G47.33 Obstructive sleep apnea (adult) (pediatric); E86.0 Dehydration; Z88.2 Allergy status to sulfonamides; Z87.01 Personal history of pneumonia (recurrent); Z88.8 Allergy status to other drugs, medicaments and biological substances; Z88.5 Allergy status to narcotic agent; Z87.891 Personal history of nicotine dependence; Z86.73 Personal history of transient ischemic attack (TIA), and cerebral infarction without residual deficits; Z79.899 Other long term (current) drug therapy; Z79.890 Hormone replacement therapy; Z74.01 Bed confinement status; Z92.21 Personal history of antineoplastic chemotherapy; Z79.624 Long term (current) use of inhibitors of nucleotide synthesis
CPT/HCPCS: 36410; 36415; 70450; 71046; 74018; 76770; 76937; 80048; 80053; 81001; 82140; 82607; 82746; 82803; 83036; 83605; 83735; 84132; 84443; 84484; 85025; 85610; 85730; 87077; 87086; 87186; 93005; 94760; 96365; 96366; 99285

== ENCOUNTER 2024-05-21 10:37 | Emergency (ER) | payer OTHER, MEDICARE ==
[2024-05-21 10:48] VITALS: RESP 16; TEMP 98.6
[2024-05-21] MEDS: SODIUM CHLORIDE 0.9% 500 ML 500 ML IV STA (11:09)
[2024-05-21 11:12] LABS: Anisocytosis Slight; Basophils % (A) 0 %; Eosinophils # (A) 0.3 k/uL (0-0.7); Eosinophils % (A) 3 %; HCT 28.4 % (39.0-53.0); HGB 9.2 gm/dL (13.0-17.5); Hypochromasia Slight; Lymphocytes # (A) 1.6 k/uL (1.0-4.8); Lymphocytes % (A) 18 %; MCH 30.6 pg (25.0-35.0); MCHC 32.4 g/dL (31.0-37.0); Mean Platelet Volume 7.8; Monocytes # (A) 0.7 k/uL (0-1.0); Monocytes % (A) 7 %; Neutrophils # (A) 6.2 k/uL (1.3-7.7); Neutrophils % (A) 70 %; RBC 3.01 m/uL (4.30-5.90); RDW 16.1 % (11.5-15.5); WBC 8.9 k/uL (3.8-10.6)
[2024-05-21 11:16] LABS: INR 1.1 (<1.2); Partial Thromboplastin Time 24.5 sec (22.0-30.0); Prothrombin Time 11.5 sec (10.0-12.5)
[2024-05-21 11:36] LABS: MCV 94.4 fL (80.0-100.0)
[2024-05-21 11:37] LABS: Platelet Count 387 k/uL (150-450)
[2024-05-21 11:55] LABS: ALT 30 U/L (4-49); AST 58 U/L (17-59); African American GFR (CKD) 80 (>60 ml/min/1.73 sqM); Albumin 2.3 g/dL (3.5-5.0); Alcohol <10 mg/dL; Alkaline Phosphatase 354 U/L (38-126); Anion Gap 4 mmol/L; Blood Urea Nitrogen 16 mg/dL (9-20); Carbon Dioxide 23 mmol/L (22-30); Chloride 110 mmol/L (98-107); Creatine Kinase 36 U/L (55-170); Glucose 203 mg/dL (74-99); Non-African American GFR(CKD) 69 (>60 ml/min/1.73 sqM); Potassium 3.9 mmol/L (3.5-5.1); Sodium 137 mmol/L (137-145); Total Bilirubin 0.6 mg/dL (0.2-1.3); Total Protein 5.6 g/dL (6.3-8.2)
--- NOTE | 2024-05-21 12:11 | CT ---
EXAMINATION TYPE: CT brain cspine wo con DATE OF EXAM: 05/21/2024 COMPARISON: Brain 04/29/2024 HISTORY: 73-year-old male with pain after Trauma, fall CT DLP: 1718.9 mGycm Automated exposure control for dose reduction was used. Technique: Examination of the head was done in axial plane without intravenous contrast. Coronal and sagittal reconstructions performed. CT of the cervical spine was obtained in axial plane without intravenous injection of contrast mater ial. Coronal and sagittal reformatted images were obtained from the axial views for evaluation of f ractures, spinal alignment and canal. FINDINGS: Head: There is no evidence of acute intracranial hemorrhage, acute ischemic changes, mass, mass-effect, or extra-axial fluid collection. There is no effacement of cerebral sulci or basal subarachnoid cister ns. There is no hydrocephalus. There is no midline shift. Zaragoza-white matter distinction is preserv ed. Unchanged mild to moderate white matter hypodensities in both cerebral hemispheres and old lacunar in farct left basal ganglia. Rightward nasal septal deviation. Paranasal sinuses and mastoid air cells well pneumatized. Orbits an d globes are intact. Cervical spine: 1 cm hypodense nodule right lobe of the thyroid gland. No craniocervical junction abnormality, predental space widening, or prevertebral soft tissue swellin g. Degenerative change at the C1 dens articulation. Mild multilevel degenerative disc disease with bulging discs. Multilevel hypertrophic facet and uncovertebral joint arthropathy is present. Degenerative grade 1 an terolisthesis C2-C3 and C3-C4. Remaining alignment is maintained. There is a central, right paracentral disc protrusion at C3-C4 which contributes to a mild central sp inal canal stenosis. Variable mild and moderate neural foraminal narrowing. No acute fracture seen of the cervical spine. Sagittal and coronal reformatted images confirm above findings. COMBINED IMPRESSION: 1. No acute intracranial abnormality seen. Similar mild to moderate burden of chronic small vessel is chemic disease. 2. No acute fracture of the cervical spine. Degenerative grade 1 anterolisthesis C2-C3 and C3-C4. 3. Small central, right paracentral disc herniation at C3-C4 contributes to mild narrowing of the spi nal canal.
--- NOTE | 2024-05-21 13:09 | XR ---
EXAMINATION TYPE: XR chest 1V portable, XR femur 2 views RT, XR pelvis AP view, XR elbow 3 views RT DATE OF EXAM: 05/21/2024 Comparison: Chest 04/26/2024 and right knee 04/27/2024 Clinical History: 73-year-old male pain after trauma, fall from bed Findings: Chest: Supine, portable exam further limited by low lung volumes and large body habitus. Within this limitat ion, no obvious consolidation, pneumothorax, or pleural effusion. Heart borderline in size. Some stra ndy atelectasis mid and lower lungs. Old healed right-sided rib fracture deformities. Right elbow: Some bony spurring at the medial upper condyle. Mild degenerative spurring ulnar trochlear joint. No elbow joint effusion. No acute fracture, subluxation, dislocation seen. Vascular calcifications noted . Pelvis and right femur: Assessment of the right femoral neck is markedly limited due to external rotation of the hips during image acquisition. Osteopenia further limits the exam. Mild degenerative change at the hips. Vascular calcifications. Posterior lumbar fusion hardware. SI joints appear symmetric and intact. No displace d fracture is seen. There is a brace present at the knee and leg with redemonstrated mildly displaced oblique distal femo ral metadiaphyseal fracture. 1.2 cm of medial displacement and approximately 1 cm posterior displacem ent are similar. Degenerative joint space narrowing medial compartment. Impression: 1. Chest: Portable exam further limited by hypoventilatory changes and body habitus. No definite acut e process. 2. Right elbow: Scattered mild degenerative spurring. No acute osseous abnormality or joint effusion seen. 3. Pelvis: The right hip is externally rotated limiting visualization of the femoral neck. There is f urther limitation from osteopenia. No obvious displaced fracture. Further clinical correlation will b e needed if patient is unable to internally rotate to make the femoral neck visible. Mild bilateral h ip OA. 4. Right femur: Known mildly displaced oblique fracture distal femoral metadiaphysis. Overall appeara nce is similar compared to 04/27/2024. Healing remains incomplete.
--- NOTE | 2024-05-21 13:36 | ED ---
General Adult HPI - General Chief complaint: Fall Stated complaint: fall Time Seen by Provider: 05/21/24 10:44 Source: patient, RN notes reviewed, old records reviewed Mode of arrival: EMS Limitations: no limitations - History of Present Illness Initial comments: Patient is a 63-year-old female who presents to the emergency department complaining of fall. Has a history of falls. Has a history of diabetes, dementia chronically ANO x 2-3, hypertension, hyperlipidemia. Patient also has a right femur fracture that is nonoperatively repaired and currently in a knee immobilizer. Presents for further evaluation at this time. Currently patient rolled out of bed. Was on the ground for less than an hour. No obvious injuries at this time other than abrasion to the right elbow. Patient is acting his normal baseline self. Does not meet criteria for trauma activation. Presents for further evaluation. Is not on thinners. - Related Data Home Medications Medication Instructions Recorded Confirmed Famotidine 20 mg PO BID 04/12/23 05/21/24 Febuxostat [Uloric] 40 mg PO DAILY 04/12/23 05/21/24 Acetaminophen Tab [Tylenol] 650 mg PO Q6H PRN 03/26/24 05/21/24 Imatinib Mesylate 300 mg PO HS 03/26/24 05/21/24 Levothyroxine Sodium 50 mcg PO DAILY 03/26/24 05/21/24 Lidocaine 4% Patch 1 patch TRANSDERM DAILY 03/26/24 05/21/24 Magnesium Oxide [Magox 400] 400 mg PO DAILY 03/26/24 05/21/24 Tamsulosin [Flomax] 0.4 mg PO DAILY 03/26/24 05/21/24 bisacodyL [Dulcolax] 10 mg RECTAL DAILY PRN 03/26/24 05/21/24 Baclofen 5 mg PO Q8H PRN 04/26/24 05/21/24 Darbepoetin Bo [Aranesp] 60 mcg SQ Q14D 04/26/24 05/21/24 Healthshake 1 dose PO TID@0700,1200,1700 05/21/24 05/21/24 Insulin Glargine,Hum.rec.anlog 8 units PO DAILY 05/21/24 05/21/24 [Lantus Solostar Pen] Insulin Lispro See Protocol SQ ACHS 05/21/24 05/21/24 Sucralfate [Carafate] 1 gm PO QID 05/21/24 05/21/24 Previous Rx's Medication Instructions Recorded rOPINIRole HCL [Requip] 1 mg PO TID #90 tab 05/08/24 Allergies Allergy/AdvReac Type Severity Reaction Status Date / Time TACOS Inhibitors Allergy Unknown Verified 05/21/24 12:21 codeine Allergy Unknown Verified 05/21/24 12:21 lisinopril Allergy Unknown Verified 05/21/24 12:21 oxycodone Allergy Unknown Verified 05/21/24 12:21 sulfamethoxazole Allergy Unknown Verified 05/21/24 12:21 [From Bactrim] trimethoprim [From Bactrim] Allergy Unknown Verified 05/21/24 12:21 TIDE LAUNDRY SOAP Allergy Severe Rash/Hives Uncoded 05/21/24 12:21 Review of Systems ROS Statement: Those systems with pertinent positive or pertinent negative responses have been documented in the HPI. Review of Systems: CONST: Denies fever EYES: Denies blurry vision ENT: Denies nasal congestion C/V: Denies Chest pain RESP: Denies shortness of breath GI: Denies abdominal pain : Denies dysuria SKIN: Endorses right elbow abrasion MSK: Endorses right elbow pain NEURO: Denies headache ROS Other: All systems not noted in ROS Statement are negative. Past Medical History Past Medical History: Asthma, Cancer, Diabetes Mellitus, GERD/Reflux, Hyperlipidemia, Hypertension, Osteoarthritis (OA), Pneumonia, Renal Disease, Sleep Apnea/CPAP/BIPAP Additional Past Medical History / Comment(s): [place] leukemia recently diagnosed and started oral chemo 10/10/19, IDDM type II, pt states he occasionally has hypoglycemia during middle of night, arthritis bilateral hands and occasionally in bilateral knees, gout R foot, WILLAM with Cpap use, chronic kidney disease stage 4 with baseline creatinine near 2 due to diabetic kidney disease and chronic interstitial nephritis, anemia History of Any Multi-Drug Resistant Organisms: ESBL Date of last positivie culture/infection: 03/28/24 MDRO Source:: urine Past Surgical History: Cholecystectomy, Hernia Repair Additional Past Surgical History / Comment(s): 09/2019 bone marrow biopsy, incisional hernia, colonoscopy with benign polyps. Right cataract removal with IOL implant. PARATHYROIDECTOMY - July 2023 Past Anesthesia/Blood Transfusion Reactions: No Reported Reaction Past Psychological History: No Psychological Hx Reported Smoking Status: Former smoker Past Alcohol Use History: None Reported Past Drug Use History: None Reported - Past Family History Father Family Medical History: Diabetes Mellitus Additional Family Medical History / Comment(s): Father is 97 yrs old. Mother Family Medical History: Dementia Additional Family Medical History / Comment(s): Mother of dementia at the age of 85yrs. General Exam - General Exam Comments Initial Comments: General: Appears in no acute distress. HEAD: Normal with no signs of head trauma. Negative Marcano sign. Negative raccoon eyes. EYES: PERRLA, EOMI, conjunctiva normal, no discharge. Pupils 3 mm and equal bilaterally. ENT: Hearing grossly intact, normal oropharynx. RESPIRATORY: Clear breath sounds bilaterally. No wheezes, rales, or rhonchi. C/V: Regular rate and rhythm. S1 and S2 auscultated, no edema, peripheral pulses 2+ and intact throughout ABD: Abd is soft, nontender, nondistended EXT: Normal range of motion, no obvious deformity no significant midline cervical, thoracic spine tenderness to palpation. No significant lumbar spine tenderness palpation. Tenderness over the abrasion on the right elbow with normal range of motion. Pelvis is stable. Right lower extremity has knee immobilizer in place for known distal femur fracture. SKIN: No rashes or lesions observed on exposed skin. NEURO: Alert and oriented x 4. Cranial nerves II-XII intact. No focal sensory or strength deficits. GCS of 15. Limitations: no limitations Course Vital Signs 05/21/24 05/21/24 05/21/24 10:44 10:48 11:13 Temperature 98.6 F Pulse Rate 95 60 68 Respiratory 16 16 16 Rate Blood Pressure 147/78 125/71 125/61 O2 Sat by Pulse 99 98 98 Oximetry 05/21/24 05/21/24 05/21/24 11:48 13:39 15:05 Temperature Pulse Rate 94 88 86 Respiratory 16 16 16 Rate Blood Pressure 141/78 140/79 151/79 O2 Sat by Pulse 98 98 98 Oximetry Medical Decision Making - Medical Decision Making Was pt. sent in by a medical professional or institution (, PA, BOARD MILL SUPERVISOR, urgent care, hospital, or [facility]...) When possible be specific @ -Sent from nursing facility for fall out of bed Did you speak to anyone other than the patient for history (EMS, parent, family, police, friend...)? What history was obtained from this source @ -Spoke with the patient's who states patient is currently at his baseline. Did you review nursing and triage notes (agree or disagree)? Why? @ -I reviewed and agree with nursing and triage notes Were old charts reviewed (outside hosp., previous admission, EMS record, old EKG, old radiological studies, urgent care reports/EKG's, [facility] records)? Report findings @ -Old charts reviewed to confirm patient is not on blood thinners. Differential Diagnosis (chest pain, altered mental status, abdominal pain women, abdominal pain men, vaginal bleeding, weakness, fever, dyspnea, syncope, headache, dizziness, GI bleed, back pain, seizure, CVA, palpatations, mental health, musculoskeletal)? @ -Differential Musculoskeletal Muscular strain, contusion, ligament sprain, fracture, arthritis, septic arthritis, bursitis, cellulitis, muscle spasm, nerve compression, DVT, arterial occlusion, herpes zoster, electrolyte abnormality, tumor.... This is not meant to be in all inclusive list EKG interpreted by me (3pts min.). @ -As above X-rays interpreted by me (1pt min.). @ -Chest x-ray, pelvis x-ray, elbow x-ray negative for any obvious traumatic injury or process. Patient's right femur x-ray redemonstrates the known mildly displaced oblique fracture. Relatively unchanged from April 27. Pelvis x-ray does show findings concerning for possible right hip injury however patient has no pain in the right hip, on the right distal femur. CT interpreted by me (1pt min.). @ -CT brain shows no obvious acute traumatic injury. CT C-spine shows no obvious acute traumatic injury but chronic degenerative changes of the cervical spine. U/S interpreted by me (1pt. min.). @ -None done What testing was considered but not performed or refused? (CT, X-rays, U/S, labs)? Why? @ -None What meds were considered but not given or refused? Why? @ -None Did you discuss the management of the patient with other professionals (professionals i.e. , PA, BOARD MILL SUPERVISOR, lab, RT, psych nurse, social services technician, nuclear physics professor, teacher, annual giving officer, case folder)? Give summary @ -No Was smoking cessation discussed for >3mins.? @ -No Was critical care preformed (if so, how long)? @ -No Were there social determinants of health that impacted care today? How? (Home lessness, low income, unemployed, alcoholism, drug addiction, transportation, low edu. Level, literacy, decrease access to med. care, fdc, rehab)? @ -No Was there de-escalation of care discussed even if they declined (Discuss DNR or withdrawal of care, Hospice)? DNR status @ -No What co-morbidities impacted this encounter? (DM, HTN, Smoking, COPD, CAD, Cancer, CVA, ARF, Chemo, Hep., AIDS, mental health diagnosis, sleep apnea, morbid obesity)? @ -None Was patient admitted / discharged? Hospital course, mention meds given and route, prescriptions, significant lab abnormalities, going to OR and other pertinent info. @ -Based on patient's presentation and physical exam, presents for falling out of bed. Does not meet trauma activation criteria. Patient was placed in c- collar. We will obtain imaging as well as trauma labs. Patient in agreement this plan. Vital signs within acceptable limits. Patient declines any analgesia medications will be given small fluid bolus. EKG shows no signs of acute ischemia. CT brain and C-spine negative for any obvious traumatic injury. Patient's x-rays remarkable for no obvious acute traumatic injury. Known right femur fracture that is nonoperative. Questionable findings on x-ray of the right hip however patient has no pain on palpation of the right hip, all pain is in the right distal femur. No suspicion for fracture at this time. Laboratory studies unremarkable. Patient has chronic anemia. I spoke with the patient as well as his . Patient will be discharged back to his facility. Cervical collar removed. Patient in agreement this plan. Patient is up-to-date on tetanus. I instructed the patient to follow up with their PCP in the next 1-3 days. . I explained that the patient should return to the emergency department if they experience any worsening symptoms. Strict return precautions were discussed with the patient. The patient expressed understanding of these instructions. I answered all questions that the patient had. The patient was discharged home in good condition with their prescriptions and follow up information. Undiagnosed new problem with uncertain prognosis? @ -No Drug Therapy requiring intensive monitoring for toxicity (Heparin, Nitro, Insulin, Cardizem)? @ -No Were any procedures done? @ -No Diagnosis/symptom? @ -Fall, right elbow abrasion Acute, or Chronic, or Acute on Chronic? @ -Acute Uncomplicated (without systemic symptoms) or Complicated (systemic symptoms)? @ -Uncomplicated Side effects of treatment? @ -No Exacerbation, Progression, or Severe Exacerbation? @ -No Poses a threat to life or bodily function? How? (Chest pain, [place], NV, pneumonia, PE, COPD, DKA, ARF, appy, cholecystitis, CVA, Diverticulitis, Homicidal, Suicidal, threat to staff... and all critical care pts) @ -No - Lab Data Result diagrams: 05/21/24 10:49 05/21/24 10:49 Lab Results 05/21/24 05/21/24 05/21/24 Range/Units 10:49 10:49 10:49 WBC 8.9 (3.8-10.6) k/uL RBC 3.01 L (4.30-5.90) m/uL Hgb 9.2 L (13.0-17.5) gm/dL Hct 28.4 L (39.0-53.0) % MCV 94.4 (80.0-100.0) fL MCH 30.6 (25.0-35.0) pg MCHC 32.4 (31.0-37.0) g/dL RDW 16.1 H (11.5-15.5) % Plt Count 387 D (150-450) k/uL MPV 7.8 Neutrophils % 70 % Lymphocytes % 18 % Monocytes % 7 % Eosinophils % 3 % Basophils % 0 % Neutrophils # 6.2 (1.3-7.7) k/uL Lymphocytes # 1.6 (1.0-4.8) k/uL Monocytes # 0.7 (0-1.0) k/uL Eosinophils # 0.3 (0-0.7) k/uL Basophils # 0.0 (0-0.2) k/uL Hypochromasia Slight Anisocytosis Slight PT 11.5 (10.0-12.5) sec INR 1.1 (<1.2) APTT 24.5 (22.0-30.0) sec Sodium 137 (137-145) mmol/L Potassium 3.9 (3.5-5.1) mmol/L Chloride 110 H (98-107) mmol/L Carbon Dioxide 23 (22-30) mmol/L Anion Gap 4 mmol/L BUN 16 (9-20) mg/dL Creatinine 1.06 (0.66-1.25) mg/dL Est GFR (CKD-EPI)AfAm 80 (>60 ml/min/1.73 sqM) Est GFR (CKD-EPI)NonAf 69 (>60 ml/min/1.73 sqM) Glucose 203 H (74-99) mg/dL Calcium 8.0 L (8.4-10.2) mg/dL Total Bilirubin 0.6 (0.2-1.3) mg/dL AST 58 (17-59) U/L ALT 30 (4-49) U/L Alkaline Phosphatase 354 H (38-126) U/L Creatine Kinase 36 L (55-170) U/L Total Protein 5.6 L (6.3-8.2) g/dL Albumin 2.3 L (3.5-5.0) g/dL Serum Alcohol <10 mg/dL Blood Type Blood Type Recheck Bld Type Recheck Status Antibody Screen Spec Expiration Date 05/21/24 Range/Units 10:49 WBC (3.8-10.6) k/uL RBC (4.30-5.90) m/uL Hgb (13.0-17.5) gm/dL Hct (39.0-53.0) % MCV (80.0-100.0) fL MCH (25.0-35.0) pg MCHC (31.0-37.0) g/dL RDW (11.5-15.5) % Plt Count (150-450) k/uL MPV Neutrophils % % Lymphocytes % % Monocytes % % Eosinophils % % Basophils % % Neutrophils # (1.3-7.7) k/uL Lymphocytes # (1.0-4.8) k/uL Monocytes # (0-1.0) k/uL Eosinophils # (0-0.7) k/uL Basophils # (0-0.2) k/uL Hypochromasia Anisocytosis PT (10.0-12.5) sec INR (<1.2) APTT (22.0-30.0) sec Sodium (137-145) mmol/L Potassium (3.5-5.1) mmol/L Chloride (98-107) mmol/L Carbon Dioxide (22-30) mmol/L Anion Gap mmol/L BUN (9-20) mg/dL Creatinine (0.66-1.25) mg/dL Est GFR (CKD-EPI)AfAm (>60 ml/min/1.73 sqM) Est GFR (CKD-EPI)NonAf (>60 ml/min/1.73 sqM) Glucose (74-99) mg/dL Calcium (8.4-10.2) mg/dL Total Bilirubin (0.2-1.3) mg/dL AST (17-59) U/L ALT (4-49) U/L Alkaline Phosphatase (38-126) U/L Creatine Kinase (55-170) U/L Total Protein (6.3-8.2) g/dL Albumin (3.5-5.0) g/dL Serum Alcohol mg/dL Blood Type A Positive Blood Type Recheck A Pos Bld Type Recheck Status No Antibody Screen NEGATIVE Spec Expiration Date 05/24/20242348 - EKG Data -: EKG Interpreted by Me EKG Comments: 12-lead Electrocardiogram Interpretation Note EKG was reviewed and interpreted by myself. 12-lead ECG performed at 1047 is interpreted by me as revealing normal sinus rhythm at a rate of 96 beats per minute. [place] is normal. TX interval is 172 ms, QRS durations 160 ms, QTc is 421 ms.. There were no ST or T wave abnormalities to suggest myocardial ischemia or injury. R wave progression across the precordium was satisfactory. By my interpretation this EKG is non-diagnostic for acute ischemia. Disposition Clinical Impression: Fall, Abrasion Disposition: HOME SELF-CARE Condition: Good Instructions (If sedation given, give patient instructions): Fall Prevention for Older Adults (ED) Is patient prescribed a controlled substance at d/c from ED?: No Referrals: Dwayne Castellano MD [Primary Care Provider] - 1-2 days Time of Disposition: 13:36
[2024-05-21 15:07] VITALS: BP 151/79; PULSE 86
== END 2024-05-21 15:07 | disposition home or self-care (01) ==
LOC: EC 10:37
DX: S50.311A Abrasion of right elbow, initial encounter (principal); M47.892 Other spondylosis, cervical region; D64.9 Anemia, unspecified; Z88.1 Allergy status to other antibiotic agents; Z88.2 Allergy status to sulfonamides; Z88.5 Allergy status to narcotic agent; Z88.8 Allergy status to other drugs, medicaments and biological substances; Z91.09 Other allergy status, other than to drugs and biological substances; Z87.891 Personal history of nicotine dependence; Z86.73 Personal history of transient ischemic attack (TIA), and cerebral infarction without residual deficits; W06.XXXA Fall from bed, initial encounter
CPT/HCPCS: 36415; 70450; 71045; 72125; 72170; 80053; 80320; 82550; 85025; 85610; 85730; 86850; 86900; 86901; 93005; 99285

== ENCOUNTER 2024-06-20 10:07 | Emergency (ER) | payer OTHER, MEDICARE ==
[2024-06-20 10:14] VITALS: RESP 16; TEMP 98.5
--- NOTE | 2024-06-20 10:51 | ED ---
General Adult HPI - General Chief complaint: Altered Mental Status Stated complaint: AMS Time Seen by Provider: 06/20/24 10:49 Source: patient, family (), EMS, RN notes reviewed Mode of arrival: EMS Limitations: physical limitation - History of Present Illness Initial comments: 74-year-old male presented to the ER via EMS from [facility] for evaluation of altered mental status. Patient has a past medical history significant of an ischemic stroke with left-sided weakness. is providing most of HPI. She states patient was having a "normal morning". Around 7:30 AM patient became "unresponsive". Patient was answering questions appropriately but was "staring off". Patient has been recently treated for UTIs for the past couple of months. She also states [facility] staff reported low-grade fevers and hypertension. Patient does report a recent cough and diarrhea. Does have a history of a chronic femur fracture which is being closely monitored outpatient. Patient is residing in a nursing facility due to femur fracture and remaining nonweightbearing. Patient denies any headache, chest pain, shortness of breath, abdominal pain. - Related Data Home Medications Medication Instructions Recorded Confirmed Famotidine 20 mg PO BID 04/12/23 06/20/24 Febuxostat [Uloric] 40 mg PO DAILY 04/12/23 06/20/24 Acetaminophen Tab [Tylenol] 650 mg PO Q6H PRN 03/26/24 06/20/24 Imatinib Mesylate 300 mg PO HS 03/26/24 06/20/24 Levothyroxine Sodium 50 mcg PO DAILY 03/26/24 06/20/24 Lidocaine 4% Patch 1 patch TRANSDERM DAILY 03/26/24 06/20/24 Magnesium Oxide [Magox 400] 400 mg PO DAILY 03/26/24 06/20/24 Tamsulosin [Flomax] 0.4 mg PO DAILY 03/26/24 06/20/24 bisacodyL [Dulcolax] 10 mg RECTAL DAILY PRN 03/26/24 06/20/24 Baclofen 5 mg PO Q8H PRN 04/26/24 06/20/24 Darbepoetin Bo [Aranesp] 60 mcg SQ Q14D 04/26/24 06/20/24 Insulin Glargine,Hum.rec.anlog 8 units PO DAILY 05/21/24 06/20/24 [Lantus Solostar Pen] Insulin Lispro See Protocol SQ ACHS@06,11,16,20 05/21/24 06/20/24 Sucralfate [Carafate] 1 gm PO QID@07,12,17,22 05/21/24 06/20/24 Previous Rx's Medication Instructions Recorded rOPINIRole HCL [Requip] 1 mg PO TID #90 tab 05/08/24 Allergies Allergy/AdvReac Type Severity Reaction Status Date / Time TACOS Inhibitors Allergy Unknown Verified 06/20/24 15:38 codeine Allergy Unknown Verified 06/20/24 15:38 lisinopril Allergy Unknown Verified 06/20/24 15:38 oxycodone Allergy Unknown Verified 06/20/24 15:38 sulfamethoxazole Allergy Unknown Verified 06/20/24 15:38 [From Bactrim] trimethoprim [From Bactrim] Allergy Unknown Verified 06/20/24 15:38 TIDE LAUNDRY SOAP Allergy Severe Rash/Hives Uncoded 06/20/24 10:14 Review of Systems ROS Statement: Those systems with pertinent positive or pertinent negative responses have been documented in the HPI. ROS Other: All systems not noted in ROS Statement are negative. Past Medical History Past Medical History: Asthma, Cancer, Diabetes Mellitus, GERD/Reflux, Hyperlipidemia, Hypertension, Osteoarthritis (OA), Pneumonia, Renal Disease, Sleep Apnea/CPAP/BIPAP Additional Past Medical History / Comment(s): [place] leukemia recently diagnosed and started oral chemo 10/10/19, IDDM type II, pt states he occasionally has hypoglycemia during middle of night, arthritis bilateral hands and occasionally in bilateral knees, gout R foot, WILLAM with Cpap use, chronic kidney disease stage 4 with baseline creatinine near 2 due to diabetic kidney disease and chronic interstitial nephritis, anemia History of Any Multi-Drug Resistant Organisms: ESBL Date of last positivie culture/infection: 03/28/24 MDRO Source:: urine Past Surgical History: Cholecystectomy, Hernia Repair Additional Past Surgical History / Comment(s): 09/2019 bone marrow biopsy, incisional hernia, colonoscopy with benign polyps. Right cataract removal with IOL implant. PARATHYROIDECTOMY - July 2023 Past Anesthesia/Blood Transfusion Reactions: No Reported Reaction Past Psychological History: No Psychological Hx Reported Smoking Status: Former smoker Past Alcohol Use History: None Reported Past Drug Use History: None Reported - Past Family History Father Family Medical History: Diabetes Mellitus Additional Family Medical History / Comment(s): Father is 97 yrs old. Mother Family Medical History: Dementia Additional Family Medical History / Comment(s): Mother of dementia at the age of 85yrs. General Exam Limitations: physical limitation General appearance: alert, in no apparent distress Head exam: Present: atraumatic, normocephalic, normal inspection Respiratory exam: Present: normal lung sounds bilaterally. Absent: respiratory distress, wheezes, rales, rhonchi, stridor Cardiovascular Exam: Present: regular rate, normal rhythm, normal heart sounds. Absent: systolic murmur, diastolic murmur, rubs, gallop, clicks GI/Abdominal exam: Present: soft, normal bowel sounds. Absent: distended, tenderness, guarding, rebound, rigid Neurological exam: Present: alert, oriented X3, CN II-XII intact Skin exam: Present: warm, dry, intact, normal color. Absent: rash Course Vital Signs 06/20/24 10:10 Temperature 98.5 F Pulse Rate 90 Respiratory 16 Rate Blood Pressure 170/82 O2 Sat by Pulse 100 Oximetry Medical Decision Making - Medical Decision Making Was pt. sent in by a medical professional or institution (, PA, TECHNICAL FELLOW, urgent care, hospital, or half-way...) When possible be specific @ -[facility]. Did you speak to anyone other than the patient for history (EMS, parent, family, police, friend...)? What history was obtained from this source @ - providing majority of HPI. Did you review nursing and triage notes (agree or disagree)? Why? @ -I reviewed and agree with nursing and triage notes Were old charts reviewed (outside hosp., previous admission, EMS record, old EKG, old radiological studies, urgent care reports/EKG's, half-way records)? Report findings @ -No old charts were reviewed Differential Diagnosis (chest pain, altered mental status, abdominal pain women, abdominal pain men, vaginal bleeding, weakness, fever, dyspnea, syncope, headache, dizziness, GI bleed, back pain, seizure, CVA, palpatations, mental health, musculoskeletal)? @ -Differential Altered Mental Status:Hypoglycemia, DKA, hypercapnia, ETOH, overdose, CO poisoning, trauma, myxedema coma, HTN encephalopathy, infection, encephalitis, psychosis, intercranial hemorrhage, hepatic encephalopathy, meningitis, CVA, this is not meant to be an all-inclusive list EKG interpreted by me (3pts min.). @ -As above X-rays interpreted by me (1pt min.). @ -Chest x-ray interpreted by me negative for acute cardiopulmonary process. Right femur x-ray showing a stable distal femur fracture. Similar to previous. CT interpreted by me (1pt min.). @ -None done U/S interpreted by me (1pt. min.). @ -None done What testing was considered but not performed or refused? (CT, X-rays, U/S, labs)? Why? @ -None What meds were considered but not given or refused? Why? @ -None Did you discuss the management of the patient with other professionals (kaleb demarco i.e. , PA, TECHNICAL FELLOW, lab, RT, psych nurse, social media marketing manager, supervisor anodizing, teacher, loss prevention officer, case work aide)? Give summary @ -No Was smoking cessation discussed for >3mins.? @ -No Was critical care preformed (if so, how long)? @ -No Were there social determinants of health that impacted care today? How? (Homelessness, low income, unemployed, alcoholism, drug addiction, transportation, low edu. Level, literacy, decrease access to med. care, longterm, rehab)? @ -No Was there de-escalation of care discussed even if they declined (Discuss DNR or withdrawal of care, Hospice)? DNR status @ -No What co-morbidities impacted this encounter? (DM, HTN, Smoking, COPD, CAD, Cancer, CVA, ARF, Chemo, Hep., AIDS, mental health diagnosis, sleep apnea, morbid obesity)? @ -Bedbound due to femur fracture/ obese Was patient admitted / discharged? Hospital course, mention meds given and route, prescriptions, significant lab abnormalities, going to OR and other pertinent info. @ -Discharge. 74-year-old male presented to the ER with a chief complaint of altered mental status. is providing majority of HPI. History and physical exam completed. Vitals within normal limits. Patient alert to person, place and time. Exam unremarkable. Patient denied any acute complaints. Laboratory studies obtained showing chronic anemia hemoglobin 9.4 appears to be at baseline. Alkaline phosphatase 217 which is likely elevated due to recent femur fracture. Labs otherwise unremarkable. Troponin 0.020. EKG showing sinus rhythm with occasional PAC. No acute ST segment or T wave abnormalities. Influenza, RSV, COVID-negative. Urinalysis showing 66 WBCs with large leukocyte Estrace which may be residual from recent UTIs. Culture will be obtained, prior to antibiotics. Chest x-ray negative for acute cardiopulmonary process. Femur x-ray showing a distal femur fracture comparable to prior. Upon reevaluation, patient resting company in exam room eager for discharge. Patient given p.o. baclofen and Tylenol in the ER for symptom control. AMS believed to be baseline as patient has a history of dementia. Patient stable for discharge at this time. Patient discharged in stable condition with follow-up to PCP. Patinet and verbally expressed understanding and agreement with care plan. Case discussed with ED attending, Dr. Roman. Undiagnosed new problem with uncertain prognosis? @ -No Drug Therapy requiring intensive monitoring for toxicity (Heparin, Nitro, Insulin, Cardizem)? @ -No Were any procedures done? @ -No Diagnosis/symptom? @ -Altered mental status/Hx femur fracture Acute, or Chronic, or Acute on Chronic? @ -Acute Uncomplicated (without systemic symptoms) or Complicated (systemic symptoms)? @ -Uncomplicated Side effects of treatment? @ -No Exacerbation, Progression, or Severe Exacerbation? @ -No Poses a threat to life or bodily function? How? (Chest pain, USA, AL, pneumonia, PE, COPD, DKA, ARF, appy, cholecystitis, CVA, Diverticulitis, Homicidal, Suicidal, threat to staff... and all critical care pts) @ - Low at this time - Lab Data Result diagrams: 06/20/24 11:00 06/20/24 11:00 Lab Results 06/20/24 06/20/24 06/20/24 Range/Units 11:00 11:00 11:00 WBC 7.0 (3.8-10.6) k/uL RBC 2.98 L (4.30-5.90) m/uL Hgb 9.4 L (13.0-17.5) gm/dL Hct 28.9 L (39.0-53.0) % MCV 96.9 (80.0-100.0) fL MCH 31.7 (25.0-35.0) pg MCHC 32.7 (31.0-37.0) g/dL RDW 17.2 H (11.5-15.5) % Plt Count 322 (150-450) k/uL MPV 7.4 Neutrophils % 63 % Lymphocytes % 20 % Monocytes % 7 % Eosinophils % 9 % Basophils % 1 % Neutrophils # 4.4 (1.3-7.7) k/uL Lymphocytes # 1.4 (1.0-4.8) k/uL Monocytes # 0.5 (0-1.0) k/uL Eosinophils # 0.6 (0-0.7) k/uL Basophils # 0.0 (0-0.2) k/uL Hypochromasia Slight Anisocytosis Slight Macrocytosis Slight PT 11.2 (10.0-12.5) sec INR 1.0 (<1.2) APTT 23.7 (22.0-30.0) sec Sodium 137 (137-145) mmol/L Potassium 4.2 (3.5-5.1) mmol/L Chloride 110 H (98-107) mmol/L Carbon Dioxide 27 (22-30) mmol/L Anion Gap 0 mmol/L BUN 11 (9-20) mg/dL Creatinine 0.90 (0.66-1.25) mg/dL Est GFR (CKD-EPI)AfAm >90 (>60 ml/min/1.73 sqM) Est GFR (CKD-EPI)NonAf 83 (>60 ml/min/1.73 sqM) Glucose 155 H (74-99) mg/dL Calcium 8.2 L (8.4-10.2) mg/dL Total Bilirubin 0.8 (0.2-1.3) mg/dL AST 39 (17-59) U/L ALT 19 (4-49) U/L Alkaline Phosphatase 217 H (38-126) U/L Troponin I (0.000-0.034) ng/mL Total Protein 5.9 L (6.3-8.2) g/dL Albumin 2.4 L (3.5-5.0) g/dL Urine Color Urine Appearance (Clear) Urine pH (5.0-8.0) Ur Specific [place] (1.001-1.035) Urine Protein (Negative) Urine Glucose (UA) (Negative) Urine Ketones (Negative) Urine Blood (Negative) Urine Nitrite (Negative) Urine Bilirubin (Negative) Urine Urobilinogen (<2.0) mg/dL Ur Leukocyte Esterase (Negative) Urine RBC (0-5) /hpf Urine WBC (0-5) /hpf Ur Squamous Epith Cells (0-4) /hpf Urine Mucus (None) /hpf Influenza Type A (PCR) (Not Detectd) Influenza Type B (PCR) (Not Detectd) RSV (PCR) (Not Detectd) SARS-CoV-2 (PCR) (Not Detectd) 06/20/24 06/20/24 06/20/24 Range/Units 11:00 11:00 11:00 WBC (3.8-10.6) k/uL RBC (4.30-5.90) m/uL Hgb (13.0-17.5) gm/dL Hct (39.0-53.0) % MCV (80.0-100.0) fL MCH (25.0-35.0) pg MCHC (31.0-37.0) g/dL RDW (11.5-15.5) % Plt Count (150-450) k/uL MPV Neutrophils % % Lymphocytes % % Monocytes % % Eosinophils % % Basophils % % Neutrophils # (1.3-7.7) k/uL Lymphocytes # (1.0-4.8) k/uL Monocytes # (0-1.0) k/uL Eosinophils # (0-0.7) k/uL Basophils # (0-0.2) k/uL Hypochromasia Anisocytosis Macrocytosis PT (10.0-12.5) sec INR (<1.2) APTT (22.0-30.0) sec Sodium (137-145) mmol/L Potassium (3.5-5.1) mmol/L Chloride (98-107) mmol/L Carbon Dioxide (22-30) mmol/L Anion Gap mmol/L BUN (9-20) mg/dL Creatinine (0.66-1.25) mg/dL Est GFR (CKD-EPI)AfAm (>60 ml/min/1.73 sqM) Est GFR (CKD-EPI)NonAf (>60 ml/min/1.73 sqM) Glucose (74-99) mg/dL Calcium (8.4-10.2) mg/dL Total Bilirubin (0.2-1.3) mg/dL AST (17-59) U/L ALT (4-49) U/L Alkaline Phosphatase (38-126) U/L Troponin I 0.020 (0.000-0.034) ng/mL Total Protein (6.3-8.2) g/dL Albumin (3.5-5.0) g/dL Urine Color Light Yellow Urine Appearance Clear (Clear) Urine pH 7.0 (5.0-8.0) Ur Specific [place] 1.011 (1.001-1.035) Urine Protein 1+ H (Negative) Urine Glucose (UA) Negative (Negative) Urine Ketones Negative (Negative) Urine Blood Negative (Negative) Urine Nitrite Negative (Negative) Urine Bilirubin Negative (Negative) Urine Urobilinogen <2.0 (<2.0) mg/dL Ur Leukocyte Esterase Large H (Negative) Urine RBC 2 (0-5) /hpf Urine WBC 66 H (0-5) /hpf Ur Squamous Epith Cells <1 (0-4) /hpf Urine Mucus Rare H (None) /hpf Influenza Type A (PCR) Not Detected (Not Detectd) Influenza Type B (PCR) Not Detected (Not Detectd) RSV (PCR) Not Detected (Not Detectd) SARS-CoV-2 (PCR) Not Detected (Not Detectd) - EKG Data -: EKG Interpreted by Hi EKG Comments: EKG taken at 14: 13 showing a normal sinus rhythm with the occasional PAC. Normal axis. No acute ST segment or T wave abnormalities. Ventricular rate 90, IL interval 171, QRS duration 114, QT/QTc 371/419. - Radiology Data Radiology results: report reviewed, image reviewed Disposition Clinical Impression: Femur fracture, right, Altered mental status Disposition: HOME SELF-CARE Condition: Stable Additional Instructions: Follow-up with PCP. Return to the ER for any new or worsening symptoms. Is patient prescribed a controlled substance at d/c from ED?: No Referrals: Dwayne Castellano MD [Primary Care Provider] - 1-2 days Time of Disposition: 15:51
--- NOTE | 2024-06-20 11:35 | XR ---
EXAMINATION TYPE: XR chest 2V DATE OF EXAM: 06/20/2024 COMPARISON: 05/21/2024 TECHNIQUE: PA and lateral views submitted. HISTORY: Pain FINDINGS: Limited inspiration. Grossly lungs are clear and there is no pneumothorax, pleural effusion, or foca l pneumonia. Heart size normal and no overt failure. Osseous structures demonstrate hypertrophic and degenerative changes of the spine. Osteopenia and arthropathy of the shoulders. IMPRESSION: 1. No acute process.
--- NOTE | 2024-06-20 11:38 | XR ---
EXAMINATION TYPE: XR femur RT DATE OF EXAM: 06/20/2024 COMPARISON: NONE HISTORY: Pain TECHNIQUE: 6 views submitted FINDINGS: Displaced fracture distal femur. Osteoarthritis and osteopenia. Vascular calcifications. Ar thropathy of the hip. IMPRESSION: Stable persistent displaced distal femoral fracture.
[2024-06-20 13:37] LABS: Anisocytosis Slight; Basophils % (A) 1 %; Eosinophils # (A) 0.6 k/uL (0-0.7); Eosinophils % (A) 9 %; HCT 28.9 % (39.0-53.0); HGB 9.4 gm/dL (13.0-17.5); Hypochromasia Slight; Lymphocytes # (A) 1.4 k/uL (1.0-4.8); Lymphocytes % (A) 20 %; MCH 31.7 pg (25.0-35.0); MCHC 32.7 g/dL (31.0-37.0); MCV 96.9 fL (80.0-100.0); Macrocytosis Slight; Mean Platelet Volume 7.4; Monocytes # (A) 0.5 k/uL (0-1.0); Monocytes % (A) 7 %; Neutrophils # (A) 4.4 k/uL (1.3-7.7); Neutrophils % (A) 63 %; Platelet Count 322 k/uL (150-450); RBC 2.98 m/uL (4.30-5.90); RDW 17.2 % (11.5-15.5)
[2024-06-20 13:51] LABS: Partial Thromboplastin Time 23.7 sec (22.0-30.0); Prothrombin Time 11.2 sec (10.0-12.5)
[2024-06-20 13:56] LABS: ALT 19 U/L (4-49); AST 39 U/L (17-59); African American GFR (CKD) >90 (>60 ml/min/1.73 sqM); Albumin 2.4 g/dL (3.5-5.0); Alkaline Phosphatase 217 U/L (38-126); Anion Gap 0 mmol/L; Blood Urea Nitrogen 11 mg/dL (9-20); Calcium 8.2 mg/dL (8.4-10.2); Carbon Dioxide 27 mmol/L (22-30); Chloride 110 mmol/L (98-107); Glucose 155 mg/dL (74-99); Non-African American GFR(CKD) 83 (>60 ml/min/1.73 sqM); Potassium 4.2 mmol/L (3.5-5.1); Sodium 137 mmol/L (137-145); Total Bilirubin 0.8 mg/dL (0.2-1.3); Total Protein 5.9 g/dL (6.3-8.2)
[2024-06-20 15:08] LABS: Appearance,Urine Clear (Clear); Bilirubin,Urine Negative (Negative); Blood,Urine Negative (Negative); Color,Urine Light Yellow; Glucose,Urine (UA) Negative (Negative); Ketones,Urine Negative (Negative); Leukocyte Esterase,Urine Large (Negative); Mucus,Urine Rare /hpf; Nitrite,Urine Negative (Negative); Protein,Urine 1+ (Negative); RBC,Urine 2 /hpf (0-5); Specific Gravity,Urine 1.011 (1.001-1.035); Squamous Epithelial Cell,Urine <1 /hpf (0-4); Urobilinogen,Urine <2.0 mg/dL (<2.0); WBC,Urine 66 /hpf (0-5)
[2024-06-20] MEDS: ACETAMINOPHEN TAB 325 MG TAB PO STA (17:49)
[2024-06-20] MEDS: BACLOFEN 10 MG TAB PO PRN (17:50)
[2024-06-20 19:17] VITALS: BP 115/67; PULSE 98
== END 2024-06-20 19:17 | disposition home or self-care (01) ==
LOC: EC 10:07
CPT/HCPCS: 36415; 71046; 80053; 81001; 84484; 85025; 85610; 85730; 87086; 87636; 93005; 99285

== ENCOUNTER 2024-11-15 16:17 | Inpatient (IN) | payer OTHER, MEDICARE ==
--- NOTE | 2024-11-15 17:02 | ED ---
General Adult HPI - General Chief complaint: Urogenital Stated complaint: UTI eval Time Seen by Provider: 11/15/24 16:19 Source: patient, family, EMS, RN notes reviewed Mode of arrival: EMS Limitations: no limitations - History of Present Illness Initial comments: Patient is a 74-year-old male presenting to the emergency department with concerns for renal function. Patient was advised to come to the emergency department from custodial by nephrology. Patient reportedly has worsening renal function. In addition patient has gained around 10 pounds in the past month. Patient does have urinary tract infection and is on IV antibiotics for the next 3 days. Ceftin. - Related Data Home Medications Medication Instructions Recorded Confirmed Famotidine 20 mg PO BID 04/12/23 11/15/24 Acetaminophen Tab [Tylenol] 650 mg PO Q6H PRN 03/26/24 11/15/24 Imatinib Mesylate 300 mg PO HS 03/26/24 11/15/24 Levothyroxine Sodium 50 mcg PO DAILY@0500 03/26/24 11/15/24 Lidocaine 4% Patch 1 patch TRANSDERM DAILY 03/26/24 11/15/24 Magnesium Oxide [Magox 400] 400 mg PO DAILY 03/26/24 11/15/24 Tamsulosin [Flomax] 0.4 mg PO DAILY 03/26/24 11/15/24 Baclofen 5 mg PO TID@0500,1300,2100 04/26/24 11/15/24 Darbepoetin Bo [Aranesp] 60 mcg SQ SA@1100 04/26/24 11/15/24 Insulin Glargine,Hum.rec.anlog 40 units PO DAILY 05/21/24 11/15/24 [Lantus Solostar Pen] Sucralfate [Carafate] 1 gm PO QID@07,12,17,22 05/21/24 11/15/24 0.9 % Sodium Chloride [Sodium 10 ml IV BID 11/15/24 11/15/24 Chloride Flush] Ergocalciferol (Vitamin D2) 1,250 mcg PO MO 11/15/24 11/15/24 [Drisdol (50,000 Iu)] Furosemide [Lasix] 20 mg PO DAILY@1600 11/15/24 11/15/24 Furosemide [Lasix] 40 mg PO DAILY 11/15/24 11/15/24 Insulin Aspart (Niacinamide) See Protocol SQ ACHS 11/15/24 11/15/24 [Fiasp 100 Unit/ml Flextouch Pen] Insulin Aspart Prot/Insuln Asp 8 unit SQ AC-TID@06,11,16 11/15/24 11/15/24 [NovoLOG MIX 70-30 Flexpen] L.acidoph,Paracasei, B.lactis 1 cap PO BID 11/15/24 11/15/24 [Probiotic] Losartan Potassium [Cozaar] 100 mg PO DAILY 11/15/24 11/15/24 Metoclopramide [Reglan] 10 mg PO TID@0600,1100,1600 11/15/24 11/15/24 allopurinoL [Zyloprim] 300 mg PO DAILY 11/15/24 11/15/24 amLODIPine [Norvasc] 10 mg PO DAILY 11/15/24 11/15/24 cefTRIAXone SODIUM [Ceftriaxone] 2 gm IV Q24H 11/15/24 11/15/24 hydrALAZINE HCL [Apresoline] 50 mg PO TID@0500,1300,2100 11/15/24 11/15/24 Allergies Allergy/AdvReac Type Severity Reaction Status Date / Time TACOS Inhibitors Allergy Unknown Verified 11/15/24 17:37 codeine Allergy Unknown Verified 11/15/24 17:37 lisinopril Allergy Unknown Verified 11/15/24 17:37 oxycodone Allergy Unknown Verified 11/15/24 17:37 sulfamethoxazole Allergy Unknown Verified 11/15/24 17:37 [From Bactrim] trimethoprim [From Bactrim] Allergy Unknown Verified 11/15/24 17:37 TIDE LAUNDRY SOAP Allergy Severe Rash/Hives Uncoded 11/15/24 17:37 Review of Systems ROS Statement: Those systems with pertinent positive or pertinent negative responses have been documented in the HPI. ROS Other: All systems not noted in ROS Statement are negative. Constitutional: Denies: fever Eyes: Denies: eye pain ENT: Denies: ear pain Respiratory: Denies: dyspnea Cardiovascular: Reports: edema. Denies: chest pain Endocrine: Reports: fatigue Gastrointestinal: Denies: abdominal pain Neurological: Denies: weakness Past Medical History Past Medical History: Asthma, Cancer, Diabetes Mellitus, GERD/Reflux, Hyperlipidemia, Hypertension, Osteoarthritis (OA), Pneumonia, Renal Disease, Sleep Apnea/CPAP/BIPAP Additional Past Medical History / Comment(s): [place] leukemia recently diagnosed and started oral chemo 10/10/19, IDDM type II, pt states he occasionally has hypoglycemia during middle of night, arthritis bilateral hands and occasionally in bilateral knees, gout R foot, WILLAM with Cpap use, chronic kidney disease stage 4 with baseline creatinine near 2 due to diabetic kidney disease and chronic interstitial nephritis, anemia History of Any Multi-Drug Resistant Organisms: ESBL Date of last positivie culture/infection: 03/28/24 MDRO Source:: urine Past Surgical History: Cholecystectomy, Hernia Repair Additional Past Surgical History / Comment(s): 09/2019 bone marrow biopsy, incisional hernia, colonoscopy with benign polyps. Right cataract removal with IOL implant. PARATHYROIDECTOMY - July 2023 Past Anesthesia/Blood Transfusion Reactions: No Reported Reaction Past Psychological History: No Psychological Hx Reported Smoking Status: Former smoker Past Alcohol Use History: None Reported Past Drug Use History: None Reported - Past Family History Father Family Medical History: Diabetes Mellitus Additional Family Medical History / Comment(s): Father is 97 yrs old. Mother Family Medical History: Dementia Additional Family Medical History / Comment(s): Mother of dementia at the a ge of 85yrs. General Exam Limitations: no limitations General appearance: alert, in no apparent distress Head exam: Present: normocephalic Eye exam: Present: normal appearance Respiratory exam: Present: normal lung sounds bilaterally Cardiovascular Exam: Present: regular rate, normal rhythm GI/Abdominal exam: Present: soft. Absent: tenderness Extremities exam: Present: pedal edema. Absent: calf tenderness Neurological exam: Present: alert Psychiatric exam: Present: normal affect, normal mood Skin exam: Present: normal color Course Vital Signs 11/15/24 11/15/24 16:30 17:11 Temperature 97.2 F L Pulse Rate 77 73 Respiratory 15 16 Rate Blood Pressure 152/61 152/61 O2 Sat by Pulse 98 98 Oximetry EKG Findings - EKG Results: EKG: interpreted by OTILIO (Inferior T wave inversion), sinus rhythm, normal axis, normal QRS Medical Decision Making - Medical Decision Making MDM back was pt. sent in by a medical professional or institution (, PA, GROUNDS CLEANER, urgent care, hospital, or custodial...) When possible be specific @ -Patient was sent in by custodial Did you speak to anyone other than the patient for history (EMS, parent, family, police, friend...)? What history was obtained from this source @ - is present and helps provide history including concerns with infection and worsening renal function Did you review nursing and triage notes (agree or disagree)? Why? @ -I reviewed and agree with nursing and triage notes Were old charts reviewed (outside hosp., previous admission, EMS record, old EKG, old radiological studies, urgent care reports/EKG's, custodial records)? Report findings @ -Multiple previous renal functions reviewed including outpatient Differential Diagnosis (chest pain, altered mental status, abdominal pain women, abdominal pain men, vaginal bleeding, weakness, fever, dyspnea, syncope, headache, dizziness, GI bleed, back pain, seizure, CVA, palpatations, mental health, musculoskeletal)? @ -Differential Weakness: Hypoglycemia, shock, sepsis, hyponatremia, anemia, infection, WI, ETOH, adverse medicine reaction, overdose, stroke, this is not meant to be an all-inclusive list. EKG interpreted by me (3pts min.). @ -As above X-rays interpreted by me (1pt min.). @ -Chest x-ray shows no acute process CT interpreted by me (1pt min.). @ -None done U/S interpreted by me (1pt. min.). @ -None done What testing was considered but not performed or refused? (CT, X-rays, U/S, labs)? Why? @ -None What meds were considered but not given or refused? Why? @ -None Did you discuss the management of the patient with other professionals (professionals i.e. , PA, GROUNDS CLEANER, lab, RT, psych nurse, social worker school, commercial account officer, teacher, tactical deception plans officer, pillowcase folder)? Give summary @ -Case was discussed with practitioner Oanh Donovan who will admit covering Dr. Castellano Was smoking cessation discussed for >3mins.? @ -No Was critical care preformed (if so, how long)? @ -No Were there social determinants of health that impacted care today? How? (Homelessness, low income, unemployed, alcoholism, drug addiction, transportation, low edu. Level, literacy, decrease access to med. care, care home, rehab)? @ -No Was there de-escalation of care discussed even if they declined (Discuss DNR or withdrawal of care, Hospice)? DNR status @ -No What co-morbidities impacted this encounter? (DM, HTN, Smoking, COPD, CAD, Cancer, CVA, ARF, Chemo, Hep., AIDS, mental health diagnosis, sleep apnea, morbid obesity)? @ -History of renal impairment Was patient admitted / discharged? Hospital course, mention meds given and route, prescriptions, significant lab abnormalities, going to OR and other pertinent info. @ -Patient presents with history of renal impairment and urinary tract infection with fluid retention and weight gain and uremia. Patient to be admitted with nephrology consult. Patient reevaluated. Patient and family updated. Admission orders written Undiagnosed new problem with uncertain prognosis? @ -No Drug Therapy requiring intensive monitoring for toxicity (Heparin, Nitro, Insulin, Cardizem)? @ -No Were any procedures done? @ -No Diagnosis/symptom? @ -Uremia, urinary tract infection Acute, or Chronic, or Acute on Chronic? @ -Acute, acute Uncomplicated (without systemic symptoms) or Complicated (systemic symptoms)? @ -Default Side effects of treatment? @ -No Exacerbation, Progression, or Severe Exacerbation? @ -No Poses a threat to life or bodily function? How? (Chest pain, USA, WI, pneumonia, PE, COPD, DKA, ARF, appy, cholecystitis, CVA, Diverticulitis, Homicidal, Suicidal, threat to staff... and all critical care pts) @ -Threat to renal function - Lab Data Result diagrams: 11/15/24 17:11 11/15/24 18:25 Lab Results 11/15/24 11/15/24 11/15/24 Range/Units 17:00 17:11 17:11 WBC 7.2 (3.8-10.6) k/uL RBC 2.74 L (4.30-5.90) m/uL Hgb 9.1 L (13.0-17.5) gm/dL Hct 28.2 L (39.0-53.0) % MCV 103.0 H (80.0-100.0) fL MCH 33.3 (25.0-35.0) pg MCHC 32.3 (31.0-37.0) g/dL RDW 15.0 (11.5-15.5) % Plt Count 167 (150-450) k/uL MPV 8.2 Neutrophils % 52 % Lymphocytes % 26 % Monocytes % 10 % Eosinophils % 10 % Basophils % 0 % Neutrophils # 3.8 (1.3-7.7) k/uL Lymphocytes # 1.9 (1.0-4.8) k/uL Monocytes # 0.7 (0-1.0) k/uL Eosinophils # 0.7 (0-0.7) k/uL Basophils # 0.0 (0-0.2) k/uL Macrocytosis Slight PT 11.0 (10.0-12.5) sec INR 1.0 (<1.2) APTT 27.8 (22.0-30.0) sec Sodium (137-145) mmol/L Potassium (3.5-5.1) mmol/L Chloride (98-107) mmol/L Carbon Dioxide (22-30) mmol/L Anion Gap mmol/L BUN (9-20) mg/dL Creatinine (0.66-1.25) mg/dL Est GFR (CKD-EPI)AfAm (>60 ml/min/1.73 sqM) Est GFR (CKD-EPI)NonAf (>60 ml/min/1.73 sqM) Glucose (74-99) mg/dL Plasma Lactic Acid Michael (0.7-2.0) mmol/L Calcium (8.4-10.2) mg/dL Magnesium (1.6-2.3) mg/dL Total Bilirubin (0.2-1.3) mg/dL AST (17-59) U/L ALT (4-49) U/L Alkaline Phosphatase (38-126) U/L NT-Pro-B Natriuret Pep pg/mL Total Protein (6.3-8.2) g/dL Albumin (3.5-5.0) g/dL Urine Color Yellow Urine Appearance Clear (Clear) Urine pH 6.5 (5.0-8.0) Ur Specific [place] 1.021 (1.001-1.035) Urine Protein 1+ H (Negative) Urine Glucose (UA) Trace H (Negative) Urine Ketones Negative (Negative) Urine Blood Negative (Negative) Urine Nitrite Negative (Negative) Urine Bilirubin Negative (Negative) Urine Urobilinogen <2.0 (<2.0) mg/dL Ur Leukocyte Esterase Negative (Negative) Urine RBC 3 (0-5) /hpf Urine WBC 1 (0-5) /hpf Urine WBC Clumps (None) /hpf Ur Squamous Epith Cells 2 (0-4) /hpf Urine Bacteria (None) /hpf Urine Mucus Rare H (None) /hpf 11/15/24 11/15/24 11/15/24 Range/Units 17:11 18:11 18:25 WBC (3.8-10.6) k/uL RBC (4.30-5.90) m/uL Hgb (13.0-17.5) gm/dL Hct (39.0-53.0) % MCV (80.0-100.0) fL MCH (25.0-35.0) pg MCHC (31.0-37.0) g/dL RDW (11.5-15.5) % Plt Count (150-450) k/uL MPV Neutrophils % % Lymphocytes % % Monocytes % % Eosinophils % % Basophils % % Neutrophils # (1.3-7.7) k/uL Lymphocytes # (1.0-4.8) k/uL Monocytes # (0-1.0) k/uL Eosinophils # (0-0.7) k/uL Basophils # (0-0.2) k/uL Macrocytosis PT (10.0-12.5) sec INR (<1.2) APTT (22.0-30.0) sec Sodium 138 (137-145) mmol/L Potassium 4.9 (3.5-5.1) mmol/L Chloride 104 (98-107) mmol/L Carbon Dioxide 27 (22-30) mmol/L Anion Gap 7 mmol/L BUN 109 H* (9-20) mg/dL Creatinine 2.79 H (0.66-1.25) mg/dL Est GFR (CKD-EPI)AfAm 24 (>60 ml/min/1.73 sqM) Est GFR (CKD-EPI)NonAf 21 (>60 ml/min/1.73 sqM) Glucose 71 L (74-99) mg/dL Plasma Lactic Acid Michael <0.5 L (0.7-2.0) mmol/L Calcium 8.6 (8.4-10.2) mg/dL Magnesium 2.3 (1.6-2.3) mg/dL Total Bilirubin 0.2 (0.2-1.3) mg/dL AST 29 (17-59) U/L ALT 21 (4-49) U/L Alkaline Phosphatase 135 H (38-126) U/L NT-Pro-B Natriuret Pep 312 pg/mL Total Protein 6.5 (6.3-8.2) g/dL Albumin 3.0 L (3.5-5.0) g/dL Urine Color Colorless Urine Appearance Turbid (Clear) Urine pH 6.0 (5.0-8.0) Ur Specific [place] 1.012 (1.001-1.035) Urine Protein Trace H (Negative) Urine Glucose (UA) Negative (Negative) Urine Ketones Negative (Negative) Urine Blood Trace H (Negative) Urine Nitrite Negative (Negative) Urine Bilirubin Negative (Negative) Urine Urobilinogen <2.0 (<2.0) mg/dL Ur Leukocyte Esterase Large H (Negative) Urine RBC 11 H (0-5) /hpf Urine WBC >182 H (0-5) /hpf Urine WBC Clumps Occasional H (None) /hpf Ur Squamous Epith Cells (0-4) /hpf Urine Bacteria Moderate H (None) /hpf Urine Mucus Rare H (None) /hpf Disposition Clinical Impression: Uremia, UTI (urinary tract infection) Disposition: ADMITTED IP TO THIS HOSP Is patient prescribed a controlled substance at d/c from ED?: No Referrals: Dwayne Castellano MD [Primary Care Provider] - 1-2 days Time of Disposition: 19:38
[2024-11-15 17:25] LABS: Basophils % (A) 0 %; Eosinophils # (A) 0.7 k/uL (0-0.7); Eosinophils % (A) 10 %; HCT 28.2 % (39.0-53.0); HGB 9.1 gm/dL (13.0-17.5); Lymphocytes # (A) 1.9 k/uL (1.0-4.8); Lymphocytes % (A) 26 %; MCH 33.3 pg (25.0-35.0); MCHC 32.3 g/dL (31.0-37.0); Macrocytosis Slight; Mean Platelet Volume 8.2; Monocytes # (A) 0.7 k/uL (0-1.0); Monocytes % (A) 10 %; Neutrophils # (A) 3.8 k/uL (1.3-7.7); Neutrophils % (A) 52 %; Platelet Count 167 k/uL (150-450); RBC 2.74 m/uL (4.30-5.90); WBC 7.2 k/uL (3.8-10.6)
[2024-11-15 17:37] LABS: Partial Thromboplastin Time 27.8 sec (22.0-30.0)
[2024-11-15 17:40] LABS: Appearance,Urine Clear (Clear); Bilirubin,Urine Negative (Negative); Blood,Urine Negative (Negative); Color,Urine Yellow; Glucose,Urine (UA) Trace (Negative); Ketones,Urine Negative (Negative); Leukocyte Esterase,Urine Negative (Negative); Mucus,Urine Rare /hpf; Nitrite,Urine Negative (Negative); PH, Urine 6.5 (5.0-8.0); Protein,Urine 1+ (Negative); RBC,Urine 3 /hpf (0-5); Specific Gravity,Urine 1.021 (1.001-1.035); Squamous Epithelial Cell,Urine 2 /hpf (0-4); Urobilinogen,Urine <2.0 mg/dL (<2.0); WBC,Urine 1 /hpf (0-5)
[2024-11-15 18:44] LABS: Appearance,Urine Turbid (Clear); Bacteria,Urine Moderate /hpf; Bilirubin,Urine Negative (Negative); Blood,Urine Trace (Negative); Color,Urine Colorless; Glucose,Urine (UA) Negative (Negative); Ketones,Urine Negative (Negative); Leukocyte Esterase,Urine Large (Negative); Mucus,Urine Rare /hpf; Nitrite,Urine Negative (Negative); Protein,Urine Trace (Negative); RBC,Urine 11 /hpf (0-5); Specific Gravity,Urine 1.012 (1.001-1.035); Urobilinogen,Urine <2.0 mg/dL (<2.0); WBC,Urine >182 /hpf (0-5)
[2024-11-15 19:01] LABS: ALT 21 U/L (4-49); AST 29 U/L (17-59); African American GFR (CKD) 24 (>60 ml/min/1.73 sqM); Alkaline Phosphatase 135 U/L (38-126); Anion Gap 7 mmol/L; Calcium 8.6 mg/dL (8.4-10.2); Carbon Dioxide 27 mmol/L (22-30); Chloride 104 mmol/L (98-107); Glucose 71 mg/dL (74-99); Magnesium 2.3 mg/dL (1.6-2.3); Non-African American GFR(CKD) 21 (>60 ml/min/1.73 sqM); Potassium 4.9 mmol/L (3.5-5.1); Sodium 138 mmol/L (137-145); Total Bilirubin 0.2 mg/dL (0.2-1.3); Total Protein 6.5 g/dL (6.3-8.2)
[2024-11-15 19:08] LABS: Blood Urea Nitrogen 109 mg/dL (9-20); NT-Pro-B-Type Natriuretic Pept 312 pg/mL
--- NOTE | 2024-11-15 19:13 | XR ---
EXAMINATION TYPE: XR chest 1V portable DATE OF EXAM: 11/15/2024 7:00 PM COMPARISON: 06/20/2024 CLINICAL INDICATION: Male, 74 years old with history of edema, TECHNIQUE: XR chest 1V portable view(s) obtained. FINDINGS: The heart size is normal. The pulmonary vasculature is normal. The lungs are clear. PICC line enters on the right with the tip in the superior vena cava region. IMPRESSION: 1. No acute pulmonary process. [facility], Workstation: [facility], 11/15/2024 7:11 PM
[2024-11-15] MEDS ORDERED: NALOXONE 0.4 MG/ML 1 ML VIAL IV PRN (19:40)
[2024-11-15] MEDS: SODIUM CHLORIDE 0.9% 1,000 ML IV SCH (20:34)
[2024-11-15] MEDS ORDERED: AMPICILLIN-SULBACTAM 1.5 GM in SODIUM CHLORIDE 0.9% 50 ML IVPB SCH (21:00)
[2024-11-15] MEDS: hydrALAZINE HCL 50 MG TAB PO SCH (23:35)
[2024-11-15] MEDS: FAMOTIDINE 20 MG TAB PO SCH (23:35)
[2024-11-15] MEDS: BACLOFEN 10 MG TAB PO SCH (23:35)
[2024-11-15] MEDS: SUCRALFATE 1 GM TAB PO SCH (23:35)
[2024-11-15] MEDS: LACTOBACILLUS ACIDOPHILUS/PECT 1 EACH CAPSULE PO SCH (23:35)
[2024-11-15] MEDS: IMATINIB MESYLATE 100 MG PO SCH (23:36)
[2024-11-15] MEDS: AMPICILLIN-SULBACTAM 3 GM in SODIUM CHLORIDE 0.9% 100 ML IVPB SCH (23:37)
[2024-11-16 04:03] LABS: Glucose,Whole Blood 57 mg/dL (70-110)
[2024-11-16] MEDS: LEVOTHYROXINE 50 MCG TAB PO SCH (05:41)
[2024-11-16 05:45] LABS: Glucose,Whole Blood 90 mg/dL (70-110)
[2024-11-16] MEDS: INSULN ASP PRT/INSULIN ASPART 100 UNIT/ML 10 ML VIAL SQ SCH (05:56)
[2024-11-16] MEDS: INSULIN DETEMIR (LEVEMIR) 100 UNIT/ML SYR SQ SCH (05:56)
[2024-11-16] MEDS: METOCLOPRAMIDE 10 MG TAB PO SCH (05:56)
[2024-11-16 07:46] LABS: Glucose,Whole Blood 80 mg/dL (70-110)
[2024-11-16 08:27] LABS: ALT 18 U/L (10-49); AST 24 U/L (14-35); Albumin/Globulin Ratio 0.94 Ratio (1.60-3.17); Alkaline Phosphatase 143 U/L (41-126); BUN/Creat Ratio 39.23 Ratio (12.00-20.00); Calcium 8.3 mg/dL (8.7-10.3); Carbon Dioxide 23.9 mmol/L (21.6-31.8); Chloride 108 mmol/L (96-109); Globulin 3.2 g/dL (1.6-3.3); Glucose 91 mg/dL (70-110); Magnesium 2.3 mg/dL (1.5-2.4); Phosphorus 4.2 mg/dL (2.4-5.1); Potassium 5.1 mmol/L (3.5-5.5); Sodium 141 mmol/L (135-145); Total Bilirubin <0.2 mg/dL (0.3-1.2); Total Protein 6.2 g/dL (6.2-8.2)
[2024-11-16 08:36] LABS: Basophils # (A) 0.05 X 10*3/uL (0.00-0.10); Basophils % (A) 0.6 %; Eosinophils # (A) 0.89 X 10*3/uL (0.04-0.35); Eosinophils % (A) 11.4 %; HCT 30.1 % (39.6-50.0); HGB 9.7 g/dL (13.0-17.0); Lymphocytes # (A) 1.46 X 10*3/uL (0.90-5.00); Lymphocytes % (A) 18.7 %; MCH 33.3 pg (27.0-32.0); MCHC 32.2 g/dL (32.0-37.0); MCV 103.4 FL (80.0-97.0); Mean Platelet Volume 10.7 FL (9.5-12.2); Monocytes # (A) 1.12 X 10*3/uL (0.20-1.00); Monocytes % (A) 14.3 %; NRBC Per 100 WBC 0 X 10*3/uL (0.00-0.01); Neutrophils # (A) 4.27 X 10*3/uL (1.80-7.70); Neutrophils % (A) 54.6 %; Platelet Count 185 X 10*3/uL (140-440); RBC 2.91 X 10*6/uL (4.40-5.60); WBC 7.82 X 10*3/uL (4.50-10.00)
--- NOTE | 2024-11-16 10:50 | P.NPCON ---
History of Present Illness - Reason for Consult chronic renal failure - History of Present Illness Patient is a 74-year-old male with history of chronic kidney disease NKF stage IIIb with previous creatinine 1.6 on 10/12/2024 and increased to 2.0 on 10/12/24 Patient was noted to have worsening renal function with serum creatinine at 2.6 on 11/13/2024. He has also had significant swelling in the legs and the abdominal area which has worsened over the past few weeks. Maintained on IV antibiotics at [facility] for UTI. Rocephin noted on med list. No significant hypotension noted. Patient is maintained on losartan and diuretics. He has been voiding. No complaints of shortness of breath or chest pain. Serum creatinine 2.7 yesterday and is 2.6 today. Maintained on IV fluids. Chest x-ray does not show any significant pulmonary vascular congestion. No history of nausea vomiting or diarrhea. Past Medical History Past Medical History: Asthma, Cancer, Diabetes Mellitus, GERD/Reflux, Hyperlipidemia, Hypertension, Osteoarthritis (OA), Pneumonia, Renal Disease, Sleep Apnea/CPAP/BIPAP Additional Past Medical History / Comment(s): [place] leukemia recently started oral chemo 10/10/19, currently on Gleevic, IDDM type II, pt states he occasionally has hypoglycemia during middle of night, arthritis bilateral hands and occasionally in bilateral knees, gout R foot, WILLAM with Cpap use, chronic kidney disease stage 4 with baseline creatinine near 2 due to diabetic kidney disease and chronic interstitial nephritis, anemia History of Any Multi-Drug Resistant Organisms: ESBL Date of last positivie culture/infection: 03/28/24 MDRO Source:: urine Past Surgical History: Back Surgery, Cholecystectomy, Hernia Repair Additional Past Surgical History / Comment(s): 09/2019 bone marrow biopsy, incisional hernia, colonoscopy with benign polyps. Right cataract removal with IOL implant. PARATHYROIDECTOMY - July 2023 Past Anesthesia/Blood Transfusion Reactions: No Reported Reaction Past Psychological History: No Psychological Hx Reported Additional Psychological History / Comment(s): Pt resides with his spouse, except pt is in rehab at [facility] for recent UTI, He has a CPAP machine. Smoking Status: Never smoker Past Alcohol Use History: None Reported Additional Past Alcohol Use History / Comment(s): The patient is a lifelong nonsmoker, does not drink Past Drug Use History: None Reported - Past Family History Father Family Medical History: Diabetes Mellitus Additional Family Medical History / Comment(s): Father is 97 yrs old. Mother Family Medical History: Dementia Additional Family Medical History / Comment(s): Mother of dementia at the age of 85yrs. Medications and Allergies Home Medications Medication Instructions Recorded Confirmed Type Famotidine 20 mg PO BID 04/12/23 11/15/24 History Acetaminophen Tab [Tylenol] 650 mg PO Q6H PRN 03/26/24 11/15/24 History Imatinib Mesylate 300 mg PO HS 03/26/24 11/15/24 History Levothyroxine Sodium 50 mcg PO DAILY@0500 03/26/24 11/15/24 History Lidocaine 4% Patch 1 patch TRANSDERM DAILY 03/26/24 11/15/24 History Magnesium Oxide [Magox 400] 400 mg PO DAILY 03/26/24 11/15/24 History Tamsulosin [Flomax] 0.4 mg PO DAILY 03/26/24 11/15/24 History Baclofen 5 mg PO TID@0500,1300,2100 04/26/24 11/15/24 History Darbepoetin Bo [Aranesp] 60 mcg SQ SA@1100 04/26/24 11/15/24 History Insulin Glargine,Hum.rec.anlog 40 units PO DAILY 05/21/24 11/15/24 History [Lantus Solostar Pen] Sucralfate [Carafate] 1 gm PO QID@07,12,17,22 05/21/24 11/15/24 History 0.9 % Sodium Chloride [Sodium 10 ml IV BID 11/15/24 11/15/24 History Chloride Flush] Ergocalciferol (Vitamin D2) 1,250 mcg PO MO 11/15/24 11/15/24 History [Drisdol (50,000 Iu)] Furosemide [Lasix] 20 mg PO DAILY@1600 11/15/24 11/15/24 History Furosemide [Lasix] 40 mg PO DAILY 11/15/24 11/15/24 History Insulin Aspart (Niacinamide) See Protocol SQ ACHS 11/15/24 11/15/24 History [Fiasp 100 Unit/ml Flextouch Pen] Insulin Aspart Prot/Insuln Asp 8 unit SQ AC-TID@06,11,16 11/15/24 11/15/24 History [NovoLOG MIX 70-30 Flexpen] L.acidoph,Paracasei, B.lactis 1 cap PO BID 11/15/24 11/15/24 History [Probiotic] Losartan Potassium [Cozaar] 100 mg PO DAILY 11/15/24 11/15/24 History Metoclopramide [Reglan] 10 mg PO TID@0600,1100,1600 11/15/24 11/15/24 History allopurinoL [Zyloprim] 300 mg PO DAILY 11/15/24 11/15/24 History amLODIPine [Norvasc] 10 mg PO DAILY 11/15/24 11/15/24 History cefTRIAXone SODIUM [Ceftriaxone] 2 gm IV Q24H 11/15/24 11/15/24 History hydrALAZINE HCL [Apresoline] 50 mg PO TID@0500,1300,2100 11/15/24 11/15/24 History Allergies Allergy/AdvReac Type Severity Reaction Status Date / Time TACOS Inhibitors Allergy Unknown Verified 11/15/24 17:37 codeine Allergy Unknown Verified 11/15/24 17:37 lisinopril Allergy Unknown Verified 11/15/24 17:37 oxycodone Allergy Unknown Verified 11/15/24 17:37 sulfamethoxazole Allergy Unknown Verified 11/15/24 17:37 [From Bactrim] trimethoprim [From Bactrim] Allergy Unknown Verified 11/15/24 17:37 TIDE LAUNDRY SOAP Allergy Severe Rash/Hives Uncoded 11/15/24 17:37 Physical Exam Vitals: Vital Signs Temp Pulse Pulse Resp BP BP Pulse Ox 11/16/24 07:25 97.4 F L 77 17 170/56 98 11/16/24 01:27 97.9 F 81 16 131/57 100 11/16/24 00:00 16 11/15/24 22:04 97.5 F L 77 16 137/49 100 11/15/24 21:16 98.0 F 74 16 137/58 97 11/15/24 17:11 73 16 152/61 98 11/15/24 16:30 97.2 F L 77 15 152/61 98 Intake and Output 11/15/24 11/16/24 11/16/24 22:59 06:59 14:59 Output Total 1300 Balance -1300 Output: Urine 1300 Emesis 0 Other: Voiding Method Bedpan Urinal # Voids 1 # Bowel Movements 1 Weight 131.995 kg 131.995 kg Patient is awake, comfortable, no acute distress. Examination of the heart S1 and S2 Examination of the lungs bilateral breath sounds are heard Abdomen is soft nontender Examination of lower extremities shows edema 2+ bilaterally JUDO TEACHER exam grossly intact Results - Lab Results Most recent lab results Calcium 8.6 mg/dL (8.4-10.2) 11/15/24 18:25 Phosphorus 4.2 mg/dL (2.4-5.1) 11/16/24 06:01 Magnesium 2.3 mg/dL (1.5-2.4) 11/16/24 06:01 11/16/24 06:01 11/16/24 06:01 Assessment and Plan Assessment: 1. Acute kidney injury, most likely ATN. UA was initially quite benign on 11/15/2024 however 1 hour later there is another UA which shows significant WBCs. This will be repeated. Ultrasound of the kidneys will be ordered as well. Hold Cozaar. 2. Volume overload with mostly edema and abdominal distention. Chest x-ray does not show significant pulmonary vascular congestion. 3. Chronic kidney disease stage IIIb with baseline creatinine around 1.6 mg/dL secondary to diabetic kidney disease and nephrosclerosis. 4. History of right femoral fracture in May 2024 5. History of UTI as outpatient maintained on IV Rocephin at [facility] prior to admission. 6. CKD mineral bone disorder maintained on vitamin D 2 7. Anemia of chronic disease maintained on Aranesp as outpatient. 8. Hypertension with chronic kidney disease Plan: DC IV fluids Repeat UA Check ultrasound of the kidneys Hold Cozaar Repeat labs in a.m. Check bladder scan rule out urine retention Resume Aranesp Check iron profile Thank you for the consultation. We will continue to follow the patient with you during his hospitalization.
[2024-11-16] MEDS: TAMSULOSIN 0.4 MG CAP.ER.24H PO SCH (11:10)
[2024-11-16] MEDS: allopurinoL 300 MG TAB PO SCH (11:10)
[2024-11-16] MEDS: amLODIPine 10 MG TAB PO SCH (11:10)
--- NOTE | 2024-11-16 12:26 | US ---
EXAMINATION TYPE: US kidneys/renal and bladder DATE OF EXAM: 11/16/2024 COMPARISON: CLINICAL INDICATION: Male, 74 years old with history of franklin; Abnormal labs TECHNIQUE: Grayscale imaging of the bilateral kidneys and urinary bladder: FINDINGS: EXAM MEASUREMENTS: Right Kidney: 10.5 x 4.6 x 4.9 cm Left Kidney: 9.5 x 5.2 x 5.8 cm Right Kidney: limited lower pole due to bowel gas Left Kidney: limited medial visualization due to bowel gas Bladder: anechoic Bilateral Jets not seen There is no evidence for hydronephrosis at this point in time. No nephrolithiasis is seen. No edgard s are identified. The urinary bladder is anechoic. Bilateral distal ureter jets are not seen. IMPRESSION: Suboptimal study without gross hydronephrosis identified bilaterally. [facility], , 11/16/2024 12:23 PM
[2024-11-16 12:27] LABS: Glucose,Whole Blood 72 mg/dL (70-110)
[2024-11-16 12:29] LABS: INR 1.01 sec (0.93-1.11); Prothrombin Time 11.3 sec (9.9-11.9)
[2024-11-16] MEDS: MAGNESIUM OXIDE 400 MG TAB PO SCH (14:08)
[2024-11-16] MEDS: LOSARTAN 50 MG TAB PO SCH (14:23)
[2024-11-16 17:25] LABS: Glucose,Whole Blood 114 mg/dL (70-110)
[2024-11-16 20:18] LABS: Glucose,Whole Blood 141 mg/dL (70-110)
--- NOTE | 2024-11-16 22:12 | HP ---
HISTORY AND PHYSICAL CHIEF COMPLAINT: Worsening renal failure and swelling of the legs and abdomen. HISTORY OF PRESENT ILLNESS: This is a 74-year-old gentleman with a past medical history of multiple medical problems. He was at the [facility]. The patient was noted to have a UTI. Currently, the patient also had worsening renal functions. Creatinine worsened up to 2.6. Nephrology recommended the patient to be admitted and the patient is being closely monitored at this time. The patient also has some volume overload. Chest x-ray showed some haziness. There is no history of any fever, rigors, or chills at this time. Most recent creatinine is 2.6, blood sugar is 57. PAST MEDICAL HISTORY: History of asthma, diabetes mellitus, hypertension, hyperlipidemia, history of pneumonia, oral chemo leukemia, ESBL. Rest of the history is noted. HOME MEDICATIONS: Reviewed include Rocephin 2 g. Dose and rest of medications reviewed. ALLERGIES: Roel inhibitors. FAMILY HISTORY: History of diabetes mellitus type 2. SOCIAL HISTORY: No history of smoking or alcohol. REVIEW OF SYSTEMS: A 14-point review of systems is negative except as mentioned earlier. PHYSICAL EXAMINATION: VITAL SIGNS: Pulse 76, blood pressure 140/54, respirations 17. NECK: No JVD. CARDIOVASCULAR: S1, S2. CHEST: A few scattered rhonchi. ABDOMEN: Soft, nontender. LEGS: Minimal bilateral leg edema. NERVOUS SYSTEM: Diffusely weak. LABORATORY DATA: Reviewed. Creatinine 2.6. ASSESSMENT: 1. Acute on chronic renal failure with worsening renal failure. 2. Rule out active urinary tract infection. 3. History of Extended-spectrum beta-lactamases urinary tract infection. 4. History of asthma. 5. Diabetes mellitus, type 2. 6. Hyperlipidemia. 7. Hypertension. 8. History of sleep apnea. 9. History of chronic myelogenous leukemia, on Gleevec. 10.History of Extended-spectrum beta-lactamases and multidrug-resistant organisms. RECOMMENDATIONS AND DISCUSSION: This is a 74-year-old gentleman presented with multiple complex medical issues, we will monitor the patient closely. Continue the current management and continue symptomatic treatment. Otherwise, we will hold with IV fluids. Continue to monitor. Avoid nephrotoxic medications. Guarded prognosis because of multiple complex medical issues. Further recommendations to follow. I would also recommend ID consultation to complete the workup. UA shows still WBC and WBC clumps at this time. See orders for further details. MMODL / IJN: [id number] /
[2024-11-17 02:27] LABS: Appearance,Urine Cloudy (Clear); Bacteria,Urine Few /hpf; Bilirubin,Urine Negative (Negative); Blood,Urine Trace (Negative); Budding Yeast,Urine Few /hpf; Color,Urine Colorless; Glucose,Urine (UA) Negative (Negative); Ketones,Urine Negative (Negative); Leukocyte Esterase,Urine Large (Negative); Nitrite,Urine Negative (Negative); Protein,Urine 1+ (Negative); RBC,Urine 6 /hpf (0-5); Specific Gravity,Urine 1.014 (1.001-1.035); Urobilinogen,Urine <2.0 mg/dL (<2.0); WBC,Urine >182 /hpf (0-5)
[2024-11-17 07:16] LABS: Glucose,Whole Blood 66 mg/dL (70-110)
[2024-11-17 07:35] LABS: Glucose,Whole Blood 78 mg/dL (70-110)
--- NOTE | 2024-11-17 09:04 | P.CONS ---
History of Present Illness - Reason for Consult Consult date: 11/16/24 UTI Requesting physician: Daron Boyer - Chief Complaint Worsening kidney function x days - History of Present Illness Patient is a 74-year-old male with a past medical history significant for diabetes mellitus hypertension hyperlipidemia pneumonia chronic renal insufficiency presenting to the hospital for evaluation of worsening renal failure also with evidence of increasing weight gain swelling to the lower extremity and has been diagnosed and treated for UTI at the correction patient on presentation to the hospital was afebrile and no fever have been recorded subsequently patient was nontachycardic hypotensive or hypoxic patient did have white count of 7.2 creatinine is 2.79 electrolytes are normal did have a significantly positive UA more than 182 WBC culture has been obtained which are currently pending patient was started on Unasyn infectious disease was consulted for further management of antibiotic therapy patient currently denies having any fever or any chills did have some suprapubic discomfort but denies any painful urination or hematuria patient was started on Unasyn infectious was consulted for further management of antibiotic therapy Review of Systems Positive point and negatives has been mentioned in the HPI, complete review of systems was performed and all other systems are negative Past Medical History Past Medical History: Asthma, Cancer, Diabetes Mellitus, GERD/Reflux, Hyperlipidemia, Hypertension, Osteoarthritis (OA), Pneumonia, Renal Disease, Sleep Apnea/CPAP/BIPAP Additional Past Medical History / Comment(s): [place] leukemia recently started oral chemo 10/10/19, currently on Gleevic, IDDM type II, pt states he o ccasionally has hypoglycemia during middle of night, arthritis bilateral hands and occasionally in bilateral knees, gout R foot, WILLAM with Cpap use, chronic kidney disease stage 4 with baseline creatinine near 2 due to diabetic kidney disease and chronic interstitial nephritis, anemia History of Any Multi-Drug Resistant Organisms: ESBL Year Discovered:: 03/28/24 MDRO Source:: urine Past Surgical History: Back Surgery, Cholecystectomy, Hernia Repair Additional Past Surgical History / Comment(s): 09/2019 bone marrow biopsy, incisional hernia, colonoscopy with benign polyps. Right cataract removal with IOL implant. PARATHYROIDECTOMY - July 2023 Past Anesthesia/Blood Transfusion Reactions: No Reported Reaction Past Psychological History: No Psychological Hx Reported Additional Psychological History / Comment(s): Pt resides with his spouse, except pt is in rehab at [facility] for recent UTI, He has a CPAP machine. Smoking Status: Never smoker Past Alcohol Use History: None Reported Additional Past Alcohol Use History / Comment(s): The patient is a lifelong nonsmoker, does not drink Past Drug Use History: None Reported - Past Family History Father Family Medical History: Diabetes Mellitus Additional Family Medical History / Comment(s): Father is 97 yrs old. Mother Family Medical History: Dementia Additional Family Medical History / Comment(s): Mother of dementia at the age of 85yrs. Medications and Allergies Home Medications Medication Instructions Recorded Confirmed Type Famotidine 20 mg PO BID 04/12/23 11/15/24 History Acetaminophen Tab [Tylenol] 650 mg PO Q6H PRN 03/26/24 11/15/24 History Imatinib Mesylate 300 mg PO HS 03/26/24 11/15/24 History Levothyroxine Sodium 50 mcg PO DAILY@0500 03/26/24 11/15/24 History Lidocaine 4% Patch 1 patch TRANSDERM DAILY 03/26/24 11/15/24 History Magnesium Oxide [Magox 400] 400 mg PO DAILY 03/26/24 11/15/24 History Tamsulosin [Flomax] 0.4 mg PO DAILY 03/26/24 11/15/24 History Baclofen 5 mg PO TID@0500,1300,2100 04/26/24 11/15/24 History Darbepoetin Bo [Aranesp] 60 mcg SQ SA@1100 04/26/24 11/15/24 History Insulin Glargine,Hum.rec.anlog 40 units PO DAILY 05/21/24 11/15/24 History [Lantus Solostar Pen] Sucralfate [Carafate] 1 gm PO QID@07,12,17,22 05/21/24 11/15/24 History 0.9 % Sodium Chloride [Sodium 10 ml IV BID 11/15/24 11/15/24 History Chloride Flush] Ergocalciferol (Vitamin D2) 1,250 mcg PO MO 11/15/24 11/15/24 History [Drisdol (50,000 Iu)] Furosemide [Lasix] 20 mg PO DAILY@1600 11/15/24 11/15/24 History Furosemide [Lasix] 40 mg PO DAILY 11/15/24 11/15/24 History Insulin Aspart (Niacinamide) See Protocol SQ ACHS 11/15/24 11/15/24 History [Fiasp 100 Unit/ml Flextouch Pen] Insulin Aspart Prot/Insuln Asp 8 unit SQ AC-TID@06,11,16 11/15/24 11/15/24 History [NovoLOG MIX 70-30 Flexpen] L.acidoph,Paracasei, B.lactis 1 cap PO BID 11/15/24 11/15/24 History [Probiotic] Losartan Potassium [Cozaar] 100 mg PO DAILY 11/15/24 11/15/24 History Metoclopramide [Reglan] 10 mg PO TID@0600,1100,1600 11/15/24 11/15/24 History allopurinoL [Zyloprim] 300 mg PO DAILY 11/15/24 11/15/24 History amLODIPine [Norvasc] 10 mg PO DAILY 11/15/24 11/15/24 History cefTRIAXone SODIUM [Ceftriaxone] 2 gm IV Q24H 11/15/24 11/15/24 History hydrALAZINE HCL [Apresoline] 50 mg PO TID@0500,1300,2100 11/15/24 11/15/24 History Allergies Allergy/AdvReac Type Severity Reaction Status Date / Time TACOS Inhibitors Allergy Unknown Verified 11/15/24 17:37 codeine Allergy Unknown Verified 11/15/24 17:37 lisinopril Allergy Unknown Verified 11/15/24 17:37 oxycodone Allergy Unknown Verified 11/15/24 17:37 sulfamethoxazole Allergy Unknown Verified 11/15/24 17:37 [From Bactrim] trimethoprim [From Bactrim] Allergy Unknown Verified 11/15/24 17:37 TIDE LAUNDRY SOAP Allergy Severe Rash/Hives Uncoded 11/15/24 17:37 Physical Exam Vitals: Vital Signs Temp Pulse Pulse Resp BP BP Pulse Ox 11/16/24 13:23 97.5 F L 76 17 141/54 99 11/16/24 07:25 97.4 F L 77 17 170/56 98 11/16/24 01:27 97.9 F 81 16 131/57 100 11/16/24 00:00 16 11/15/24 22:04 97.5 F L 77 16 137/49 100 11/15/24 21:16 98.0 F 74 16 137/58 97 11/15/24 17:11 73 16 152/61 98 11/15/24 16:30 97.2 F L 77 15 152/61 98 Intake and Output 11/15/24 11/16/24 11/16/24 22:59 06:59 14:59 Output Total 1300 Balance -1300 Output: Urine 1300 Emesis 0 Other: Voiding Method Bedpan Bedpan Urinal Urinal # Voids 1 # Bowel Movements 1 Weight 131.995 kg 131.995 kg GENERAL DESCRIPTION: Elderly male lying in bed, no distress. No tachypnea or accessory muscle of respiration use. HEENT: Shows Pallor , no scleral icterus. Oral mucous membrane is dry. NECK: Trachea central, no thyromegaly. LUNGS: Unlabored breathing. Clear to auscultation anteriorly. No wheeze or crackle. HEART: S1, S2, regular rate and rhythm. No loud murmur ABDOMEN: Soft, no tenderness , guarding or rigidity, no organomegaly EXTREMITIES: 1+ edema of feet. SKIN: No rash, no masses palpable. NEUROLOGICAL: The patient is awake, alert, oriented x3, mood and affect normal. Results CBC & Chem 7: 11/16/24 06:01 11/16/24 06:01 Labs: Abnormal Lab Results - Last 24 Hours (Table) 11/15/24 11/15/24 11/15/24 Range/Units 17:00 17:11 17:11 RBC 2.74 L (4.30-5.90) m/uL Hgb 9.1 L (13.0-17.5) gm/dL Hct 28.2 L (39.0-53.0) % MCV 103.0 H (80.0-100.0) fL MCH (27.0-32.0) pg RDW (11.5-14.5) % Monocytes # (0.20-1.00) X 10*3/uL Eosinophils # (0.04-0.35) X 10*3/uL BUN (9-20) mg/dL Creatinine (0.66-1.25) mg/dL Est GFR (CKD-EPI) (>=60) BUN/Creatinine Ratio (12.00-20.00) Ratio Glucose (74-99) mg/dL POC Glucose (mg/dL) (70-110) mg/dL Plasma Lactic Acid Michael <0.5 L (0.7-2.0) mmol/L Total Bilirubin (0.3-1.2) mg/dL Alkaline Phosphatase (38-126) U/L Albumin (3.5-5.0) g/dL Albumin/Globulin Ratio (1.60-3.17) Ratio Urine Protein 1+ H (Negative) Urine Glucose (UA) Trace H (Negative) Urine Blood (Negative) Ur Leukocyte Esterase (Negative) Urine RBC (0-5) /hpf Urine WBC (0-5) /hpf Urine WBC Clumps (None) /hpf Urine Bacteria (None) /hpf Urine Mucus Rare H (None) /hpf 11/15/24 11/15/24 11/16/24 Range/Units 18:11 18:25 04:02 RBC (4.30-5.90) m/uL Hgb (13.0-17.5) gm/dL Hct (39.0-53.0) % MCV (80.0-100.0) fL MCH (27.0-32.0) pg RDW (11.5-14.5) % Monocytes # (0.20-1.00) X 10*3/uL Eosinophils # (0.04-0.35) X 10*3/uL BUN 109 H* (9-20) mg/dL Creatinine 2.79 H (0.66-1.25) mg/dL Est GFR (CKD-EPI) (>=60) BUN/Creatinine Ratio (12.00-20.00) Ratio Glucose 71 L (74-99) mg/dL POC Glucose (mg/dL) 57 L (70-110) mg/dL Plasma Lactic Acid Michael (0.7-2.0) mmol/L Total Bilirubin (0.3-1.2) mg/dL Alkaline Phosphatase 135 H (38-126) U/L Albumin 3.0 L (3.5-5.0) g/dL Albumin/Globulin Ratio (1.60-3.17) Ratio Urine Protein Trace H (Negative) Urine Glucose (UA) (Negative) Urine Blood Trace H (Negative) Ur Leukocyte Esterase Large H (Negative) Urine RBC 11 H (0-5) /hpf Urine WBC >182 H (0-5) /hpf Urine WBC Clumps Occasional H (None) /hpf Urine Bacteria Moderate H (None) /hpf Urine Mucus Rare H (None) /hpf 11/16/24 11/16/24 Range/Units 06:01 06:01 RBC 2.91 L (4.30-5.90) m/uL Hgb 9.7 L (13.0-17.5) gm/dL Hct 30.1 L (39.0-53.0) % MCV 103.4 H (80.0-100.0) fL MCH 33.3 H (27.0-32.0) pg RDW 15.0 H (11.5-14.5) % Monocytes # 1.12 H (0.20-1.00) X 10*3/uL Eosinophils # 0.89 H (0.04-0.35) X 10*3/uL BUN 102.0 H (9-20) mg/dL Creatinine 2.6 H (0.66-1.25) mg/dL Est GFR (CKD-EPI) 25 L (>=60) BUN/Creatinine Ratio 39.23 H (12.00-20.00) Ratio Glucose (74-99) mg/dL POC Glucose (mg/dL) (70-110) mg/dL Plasma Lactic Acid Michael (0.7-2.0) mmol/L Total Bilirubin <0.2 L (0.3-1.2) mg/dL Alkaline Phosphatase 143 H (38-126) U/L Albumin (3.5-5.0) g/dL Albumin/Globulin Ratio 0.94 L (1.60-3.17) Ratio Urine Protein (Negative) Urine Glucose (UA) (Negative) Urine Blood (Negative) Ur Leukocyte Esterase (Negative) Urine RBC (0-5) /hpf Urine WBC (0-5) /hpf Urine WBC Clumps (None) /hpf Urine Bacteria (None) /hpf Urine Mucus (None) /hpf Assessment and Plan (1) UTI (urinary tract infection) Current Visit: Yes Status: Acute Code(s): N39.0 - URINARY TRACT INFECTION, SITE NOT SPECIFIED SNOMED Code(s): 14685350 Plan: 1patient presented to hospital with worsening kidney function in this patient who did have some suprapubic discomfort positive UA concerning for UTI not entirely excluded likely from bladder gram-negative pathogen panel and the patient was receiving IV antibiotic at the correction we will need to get more information about that has a patient was not clear about it 2-patient started on Unasyn continue while waiting for the culture to finalize We will follow on clinical condition and cultures to further adjust medication if needed Thank you for this consultation we will follow the patient along with you Dictation was produced using [employer] dictation software. please excuse any gramma tical, word or spelling errors. Time with Patient: Greater than 30
[2024-11-17 09:44] LABS: Basophils # (A) 0.04 X 10*3/uL (0.00-0.10); Basophils % (A) 0.5 %; Eosinophils # (A) 0.88 X 10*3/uL (0.04-0.35); Eosinophils % (A) 11.8 %; HCT 29.6 % (39.6-50.0); HGB 9.2 g/dL (13.0-17.0); Lymphocytes # (A) 1.56 X 10*3/uL (0.90-5.00); Lymphocytes % (A) 20.9 %; MCH 32.3 pg (27.0-32.0); MCHC 31.1 g/dL (32.0-37.0); MCV 103.9 FL (80.0-97.0); Mean Platelet Volume 10.5 FL (9.5-12.2); Monocytes # (A) 1.03 X 10*3/uL (0.20-1.00); Monocytes % (A) 13.8 %; NRBC Per 100 WBC 0 X 10*3/uL (0.00-0.01); Neutrophils # (A) 3.94 X 10*3/uL (1.80-7.70); Neutrophils % (A) 52.6 %; Platelet Count 167 X 10*3/uL (140-440); RBC 2.85 X 10*6/uL (4.40-5.60); RDW 15.2 % (11.5-14.5); WBC 7.48 X 10*3/uL (4.50-10.00)
[2024-11-17] MEDS: ERTAPENEM 0.5 GM in SODIUM CHLORIDE 0.9% 50 ML IVPB SCH (09:48)
[2024-11-17] MEDS: DARBEPOETIN ALFA 60 MCG/0.3 ML SYRINGE SQ SCH (12:23)
[2024-11-17 12:28] LABS: BUN/Creat Ratio 37.12 Ratio (12.00-20.00); Blood Urea Nitrogen 92.8 mg/dL (9.0-27.0); Calcium 8.3 mg/dL (8.7-10.3); Chloride 111 mmol/L (96-109); Glucose 70 mg/dL (70-110); Potassium 5.3 mmol/L (3.5-5.5); Sodium 142 mmol/L (135-145)
[2024-11-17 12:32] LABS: Glucose,Whole Blood 218 mg/dL (70-110)
--- NOTE | 2024-11-17 13:39 | P.PN ---
Subjective Progress Note Date: 11/17/24 Principal diagnosis: Reason for follow-up is a UTI Patient is a 74-year-old male with a past medical history significant for diabetes mellitus hypertension hyperlipidemia pneumonia chronic renal insufficiency presenting to the hospital for evaluation of worsening renal failure, patient apparently was getting [facility] the shelter did have a positive UA prompted this consultation. On today's evaluation that is 11/17/2024, patient did not have any fever and breathing comfortably room air patient is sleepy no vomiting diarrhea and the changes reported by the nursing staff. Patient white count 7.48, creatinine is 2.5 urine is significantly positive urine culture growing gram-negative review of the last culture has grown ESBL Klebsiella predominantly Objective - Vital Signs Vital signs: Vital Signs Temp 97.5 F L 11/17/24 07:28 Pulse 78 11/17/24 07:28 Resp 16 11/17/24 07:28 BP 151/59 11/17/24 07:28 Pulse Ox 97 11/17/24 07:28 FiO2 Intake & Output 11/16/24 11/17/24 11/17/24 18:59 06:59 18:59 Intake Total 540 590 Output Total 400 1100 Balance 140 -510 Intake: Oral 540 590 Output: Urine 400 1100 Other: Voiding Method Bedpan Urinal Urinal Urinal # Bowel Movements 1 - Exam GENERAL DESCRIPTION: An elderly male lying in bed in no distress RESPIRATORY SYSTEM: Unlabored breathing , decreased breath sounds at bases HEART: S1 S2 regular rate and rhythm , ABDOMEN: Soft , no tenderness EXTREMITIES: No edema feet - Labs CBC & Chem 7: 11/17/24 04:51 11/17/24 04:51 Labs: Abnormal Lab Results - Last 24 Hours (Table) 11/16/24 11/16/24 11/17/24 Range/Units 17:23 20:17 01:20 RBC (4.40-5.60) X 10*6/uL Hgb (13.0-17.0) g/dL Hct (39.6-50.0) % MCV (80.0-97.0) FL MCH (27.0-32.0) pg MCHC (32.0-37.0) g/dL RDW (11.5-14.5) % Monocytes # (0.20-1.00) X 10*3/uL Eosinophils # (0.04-0.35) X 10*3/uL Chloride (96-109) mmol/L BUN (9.0-27.0) mg/dL Creatinine (0.6-1.5) mg/dL Est GFR (CKD-EPI) (>=60) BUN/Creatinine Ratio (12.00-20.00) Ratio POC Glucose (mg/dL) 114 H 141 H (70-110) mg/dL Calcium (8.7-10.3) mg/dL Urine Protein 1+ H (Negative) Urine Blood Trace H (Negative) Ur Leukocyte Esterase Large H (Negative) Urine RBC 6 H (0-5) /hpf Urine WBC >182 H (0-5) /hpf Urine WBC Clumps Moderate H (None) /hpf Urine Bacteria Few H (None) /hpf Urine Yeast (Budding) Few H (None) /hpf 11/17/24 11/17/24 11/17/24 Range/Units 04:51 04:51 07:14 RBC 2.85 L (4.40-5.60) X 10*6/uL Hgb 9.2 L (13.0-17.0) g/dL Hct 29.6 L (39.6-50.0) % MCV 103.9 H (80.0-97.0) FL MCH 32.3 H (27.0-32.0) pg MCHC 31.1 L (32.0-37.0) g/dL RDW 15.2 H (11.5-14.5) % Monocytes # 1.03 H (0.20-1.00) X 10*3/uL Eosinophils # 0.88 H (0.04-0.35) X 10*3/uL Chloride 111 H (96-109) mmol/L BUN 92.8 H (9.0-27.0) mg/dL Creatinine 2.5 H (0.6-1.5) mg/dL Est GFR (CKD-EPI) 26 L (>=60) BUN/Creatinine Ratio 37.12 H (12.00-20.00) Ratio POC Glucose (mg/dL) 66 L (70-110) mg/dL Calcium 8.3 L (8.7-10.3) mg/dL Urine Protein (Negative) Urine Blood (Negative) Ur Leukocyte Esterase (Negative) Urine RBC (0-5) /hpf Urine WBC (0-5) /hpf Urine WBC Clumps (None) /hpf Urine Bacteria (None) /hpf Urine Yeast (Budding) (None) /hpf 11/17/24 Range/Units 12:29 RBC (4.40-5.60) X 10*6/uL Hgb (13.0-17.0) g/dL Hct (39.6-50.0) % MCV (80.0-97.0) FL MCH (27.0-32.0) pg MCHC (32.0-37.0) g/dL RDW (11.5-14.5) % Monocytes # (0.20-1.00) X 10*3/uL Eosinophils # (0.04-0.35) X 10*3/uL Chloride (96-109) mmol/L BUN (9.0-27.0) mg/dL Creatinine (0.6-1.5) mg/dL Est GFR (CKD-EPI) (>=60) BUN/Creatinine Ratio (12.00-20.00) Ratio POC Glucose (mg/dL) 218 H (70-110) mg/dL Calcium (8.7-10.3) mg/dL Urine Protein (Negative) Urine Blood (Negative) Ur Leukocyte Esterase (Negative) Urine RBC (0-5) /hpf Urine WBC (0-5) /hpf Urine WBC Clumps (None) /hpf Urine Bacteria (None) /hpf Urine Yeast (Budding) (None) /hpf Microbiology - Last 24 Hours (Table) 11/15/24 19:35 Urine Culture - Preliminary Urine,Voided Gram Neg Bacilli 11/15/24 17:00 Urine Culture - Final Urine,Voided 11/15/24 19:39 Blood Culture - Preliminary Blood Assessment and Plan (1) UTI (urinary tract infection) Current Visit: Yes Status: Acute Code(s): N39.0 - URINARY TRACT INFECTION, SITE NOT SPECIFIED SNOMED Code(s): 13077302 Plan: 1patient presented to hospital with worsening kidney function in this patient who did have some suprapubic discomfort positive UA concerning for UTI not entirely excluded likely from bladder gram-negative pathogen panel and the patient was receiving IV antibiotic at the shelter we will need to get more information about that has a patient was not clear about it 2-patient previous urine culture has been reviewed and has predominantly grown ESBL Klebsiella Unasyn has been discussed patient started on ertapenem pending finalization of the culture Dictation was produced using [employer] dictation software. please excuse any grammatical, word or spelling errors. Time with Patient: Less than 30
[2024-11-17] MEDS ORDERED: DEXTROSE 50% SYRINGE 50 ML IVP PRN ×2 (13:46)
--- NOTE | 2024-11-17 14:15 | P.PN ---
Subjective Progress Note Date: 11/17/24 Patient seen in follow-up for WENDI on CKD. Patient is awake, comfortable, no acute distress. Examination of the heart S1 and S2 Examination of the lungs bilateral breath sounds are heard Abdomen is soft nontender Examination of lower extremities shows edema 2+ bilaterally [employer] exam grossly intact Objective - Vital Signs Vital signs: Vital Signs Temp 97.5 F L 11/17/24 07:28 Pulse 78 11/17/24 07:28 Resp 16 11/17/24 07:28 BP 151/59 11/17/24 07:28 Pulse Ox 97 11/17/24 07:28 FiO2 Intake & Output 11/16/24 11/17/24 11/17/24 18:59 06:59 18:59 Intake Total 540 590 Output Total 400 1100 Balance 140 -510 Intake: Oral 540 590 Output: Urine 400 1100 Other: Voiding Method Bedpan Urinal Urinal # Bowel Movements 1 - Labs CBC & Chem 7: 11/17/24 04:51 11/16/24 06:01 Labs: Abnormal Lab Results - Last 24 Hours (Table) 11/16/24 11/16/24 11/17/24 Range/Units 17:23 20:17 01:20 RBC (4.40-5.60) X 10*6/uL Hgb (13.0-17.0) g/dL Hct (39.6-50.0) % MCV (80.0-97.0) FL MCH (27.0-32.0) pg MCHC (32.0-37.0) g/dL RDW (11.5-14.5) % Monocytes # (0.20-1.00) X 10*3/uL Eosinophils # (0.04-0.35) X 10*3/uL POC Glucose (mg/dL) 114 H 141 H (70-110) mg/dL Urine Protein 1+ H (Negative) Urine Blood Trace H (Negative) Ur Leukocyte Esterase Large H (Negative) Urine RBC 6 H (0-5) /hpf Urine WBC >182 H (0-5) /hpf Urine WBC Clumps Moderate H (None) /hpf Urine Bacteria Few H (None) /hpf Urine Yeast (Budding) Few H (None) /hpf 11/17/24 11/17/24 Range/Units 04:51 07:14 RBC 2.85 L (4.40-5.60) X 10*6/uL Hgb 9.2 L (13.0-17.0) g/dL Hct 29.6 L (39.6-50.0) % MCV 103.9 H (80.0-97.0) FL MCH 32.3 H (27.0-32.0) pg MCHC 31.1 L (32.0-37.0) g/dL RDW 15.2 H (11.5-14.5) % Monocytes # 1.03 H (0.20-1.00) X 10*3/uL Eosinophils # 0.88 H (0.04-0.35) X 10*3/uL POC Glucose (mg/dL) 66 L (70-110) mg/dL Urine Protein (Negative) Urine Blood (Negative) Ur Leukocyte Esterase (Negative) Urine RBC (0-5) /hpf Urine WBC (0-5) /hpf Urine WBC Clumps (None) /hpf Urine Bacteria (None) /hpf Urine Yeast (Budding) (None) /hpf Microbiology - Last 24 Hours (Table) 11/15/24 17:00 Urine Culture - Final Urine,Voided 11/15/24 19:39 Blood Culture - Preliminary Blood Assessment and Plan Assessment: 1. Acute kidney injury, most likely ATN. UA concerning for UTI. Ultrasound showed no hydronephrosis. Creatinine peak 2.8, improved to 2.6 yesterday. 2. Volume overload with mostly edema and abdominal distention. Chest x-ray does not show significant pulmonary vascular congestion. 3. Chronic kidney disease stage IIIb with baseline creatinine around 1.6 mg/dL secondary to diabetic kidney disease and nephrosclerosis. 4. History of right femoral fracture in May 2024 5. Acute recurrent UTI. 6. CKD mineral bone disorder maintained on vitamin D 2 7. Anemia of chronic disease maintained on Aranesp as outpatient. 8. Hypertension with chronic kidney disease Plan: Hold Cozaar Await repeat labs today Continue Aranesp Urine output remains good 1.5L Await cultures, ABX per ID
[2024-11-17 17:17] LABS: Glucose,Whole Blood 138 mg/dL (70-110)
[2024-11-17] MEDS: INSULIN ASPART (NovoLOG) 100 UNIT/ML VIAL SQ SCH (17:20)
[2024-11-17] MEDS: ACETAMINOPHEN TAB 325 MG TAB PO PRN (17:57)
[2024-11-17] MEDS: LIDOCAINE 4% PATCH TOPICAL SCH (19:52)
[2024-11-17 20:00] LABS: Glucose,Whole Blood 148 mg/dL (70-110)
[2024-11-18 07:02] LABS: Glucose,Whole Blood 59 mg/dL (70-110)
[2024-11-18 07:24] LABS: Glucose,Whole Blood 71 mg/dL (70-110)
[2024-11-18] MEDS: PANTOPRAZOLE 40 MG TABLET PO SCH (08:21)
[2024-11-18 09:41] LABS: HCT 30.4 % (39.6-50.0); HGB 9.5 g/dL (13.0-17.0); MCH 31.9 pg (27.0-32.0); MCHC 31.3 g/dL (32.0-37.0); Mean Platelet Volume 10.3 FL (9.5-12.2); NRBC Per 100 WBC 0 X 10*3/uL (0.00-0.01); Platelet Count 182 X 10*3/uL (140-440); RBC 2.98 X 10*6/uL (4.40-5.60); RDW 15.3 % (11.5-14.5); WBC 9.26 X 10*3/uL (4.50-10.00)
[2024-11-18 09:42] LABS: Basophils # (A) 0.05 X 10*3/uL (0.00-0.10); Basophils % (A) 0.5 %; Eosinophils # (A) 0.68 X 10*3/uL (0.04-0.35); Eosinophils % (A) 7.3 %; Lymphocytes # (A) 1.79 X 10*3/uL (0.90-5.00); Lymphocytes % (A) 19.3 %; Monocytes # (A) 1.23 X 10*3/uL (0.20-1.00); Monocytes % (A) 13.3 %; Neutrophils # (A) 5.49 X 10*3/uL (1.80-7.70); Neutrophils % (A) 59.4 %
[2024-11-18 09:47] LABS: ALT 16 U/L (10-49); AST 20 U/L (14-35); Albumin/Globulin Ratio 0.97 Ratio (1.60-3.17); Alkaline Phosphatase 154 U/L (41-126); BUN/Creat Ratio 35.68 Ratio (12.00-20.00); Blood Urea Nitrogen 89.2 mg/dL (9.0-27.0); Calcium 8.4 mg/dL (8.7-10.3); Carbon Dioxide 23.7 mmol/L (21.6-31.8); Chloride 110 mmol/L (96-109); Globulin 3.1 g/dL (1.6-3.3); Glucose 60 mg/dL (70-110); Potassium 5.3 mmol/L (3.5-5.5); Sodium 142 mmol/L (135-145); Total Bilirubin 0.3 mg/dL (0.3-1.2); Total Protein 6.1 g/dL (6.2-8.2)
--- NOTE | 2024-11-18 10:06 | PN ---
PROGRESS NOTE DATE OF SERVICE: 11/17/2024 SUBJECTIVE: This is a 74-year-old gentleman, who was admitted with acute on chronic renal failure, also had history of ESBL. The patient is evaluated for active UTI. The patient has some suprapubic discomfort. The most recent cultures are gram-negative bacilli. PAST MEDICAL HISTORY: Reviewed. REVIEW OF SYSTEMS: A 14-point review of systems is negative except as mentioned earlier. CURRENT MEDICATIONS: Reviewed. PHYSICAL EXAMINATION: VITAL SIGNS: Pulse is 78, blood pressure 151/59, respirations 16. CHEST: A few scattered rhonchi and crackles. ABDOMEN: Soft. LEGS: Bilateral leg edema. NERVOUS SYSTEM: Nonfocal. LABORATORY DATA: Creatinine 2.5, blood sugars 66. ASSESSMENT: 1. Acute on chronic renal failure with worsening renal failure. 2. Rule out active urinary tract infection with gram-negative bacilli in the urine. 3. History of Extended-spectrum beta-lactamases, Klebsiella urinary tract infection. 4. History of asthma. 5. Diabetes mellitus type 2. 6. Hyperlipidemia. 7. Hypertension. 8. History of chronic myelogenous leukemia, on Gleevec. RECOMMENDATIONS: Recommend to continue current management. Continue symptomatic treatment. Otherwise, I recommend to continue with empiric antibiotics. We will await the final cultures. The patient is severely immunosuppressed. We will continue to monitor with multiple consultants. Monitor blood sugars closely. Avoid nephrotoxic medications. Repeat labs. Guarded prognosis. Further recommendations to follow. MMLIZL / IJN: [id number] /
[2024-11-18 12:10] LABS: Glucose,Whole Blood 79 mg/dL (70-110)
--- NOTE | 2024-11-18 13:10 | P.PN ---
Subjective Progress Note Date: 11/18/24 Patient seen in follow-up for WENDI on CKD. Feeling OK today and no new complaints. Patient is awake, comfortable, no acute distress. 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 Objective - Vital Signs Vital signs: Vital Signs Temp 97.7 F 11/18/24 07:04 Pulse 89 11/18/24 07:04 Resp 16 11/18/24 07:04 BP 151/62 11/18/24 07:04 Pulse Ox 99 11/18/24 07:04 FiO2 Intake & Output 11/17/24 11/18/24 11/18/24 18:59 06:59 18:59 Intake Total 1300 Output Total 700 400 350 Balance 600 -400 -350 Intake: Oral 1300 Output: Urine 700 400 350 Other: Voiding Method Urinal Urinal Urinal # Bowel Movements 1 # Emeses 1 - Labs CBC & Chem 7: 11/18/24 05:04 11/18/24 05:04 Labs: Abnormal Lab Results - Last 24 Hours (Table) 11/17/24 11/17/24 11/18/24 Range/Units 17:04 19:58 05:04 RBC (4.40-5.60) X 10*6/uL Hgb (13.0-17.0) g/dL Hct (39.6-50.0) % MCV (80.0-97.0) FL MCHC (32.0-37.0) g/dL RDW (11.5-14.5) % Monocytes # (0.20-1.00) X 10*3/uL Eosinophils # (0.04-0.35) X 10*3/uL Chloride (96-109) mmol/L BUN (9.0-27.0) mg/dL Creatinine (0.6-1.5) mg/dL Est GFR (CKD-EPI) (>=60) BUN/Creatinine Ratio (12.00-20.00) Ratio Glucose (70-110) mg/dL POC Glucose (mg/dL) 138 H 148 H (70-110) mg/dL Hemoglobin A1c 6.5 H (<=6.0) % Calcium (8.7-10.3) mg/dL Alkaline Phosphatase (41-126) U/L Total Protein (6.2-8.2) g/dL Albumin (3.8-4.9) g/dL Albumin/Globulin Ratio (1.60-3.17) Ratio 11/18/24 11/18/24 11/18/24 Range/Units 05:04 05:04 07:00 RBC 2.98 L (4.40-5.60) X 10*6/uL Hgb 9.5 L (13.0-17.0) g/dL Hct 30.4 L (39.6-50.0) % MCV 102.0 H (80.0-97.0) FL MCHC 31.3 L (32.0-37.0) g/dL RDW 15.3 H (11.5-14.5) % Monocytes # 1.23 H (0.20-1.00) X 10*3/uL Eosinophils # 0.68 H (0.04-0.35) X 10*3/uL Chloride 110 H (96-109) mmol/L BUN 89.2 H (9.0-27.0) mg/dL Creatinine 2.5 H (0.6-1.5) mg/dL Est GFR (CKD-EPI) 26 L (>=60) BUN/Creatinine Ratio 35.68 H (12.00-20.00) Ratio Glucose 60 L (70-110) mg/dL POC Glucose (mg/dL) 59 L (70-110) mg/dL Hemoglobin A1c (<=6.0) % Calcium 8.4 L (8.7-10.3) mg/dL Alkaline Phosphatase 154 H (41-126) U/L Total Protein 6.1 L (6.2-8.2) g/dL Albumin 3.0 L (3.8-4.9) g/dL Albumin/Globulin Ratio 0.97 L (1.60-3.17) Ratio Microbiology - Last 24 Hours (Table) 11/15/24 19:35 Urine Culture - Final Urine,Voided Klebsiella pneumo ESBL MDRO 11/15/24 19:39 Blood Culture - Preliminary Blood 11/15/24 17:00 Urine Culture - Final Urine,Voided Assessment and Plan Assessment: 1. Acute kidney injury, most likely ATN. UA concerning for UTI. Ultrasound showed no hydronephrosis. Creatinine peak 2.8, stable at 2.5 today. 2. Volume overload with mostly edema and abdominal distention. Chest x-ray does not show significant pulmonary vascular congestion. 3. Chronic kidney disease stage IIIb with baseline creatinine around 1.6 mg/dL secondary to diabetic kidney disease and nephrosclerosis. 4. History of right femoral fracture in May 2024 5. Acute recurrent UTI. 6. CKD mineral bone disorder maintained on vitamin D 2 7. Anemia of chronic disease maintained on Aranesp as outpatient. 8. Hypertension with chronic kidney disease Plan: Hold Cozaar Continue Aranesp Urine output remains good 1.1L Await cultures, ABX per ID
--- NOTE | 2024-11-18 15:33 | P.PN ---
Subjective Progress Note Date: 11/18/24 Principal diagnosis: Reason for follow-up is a UTI Patient is a 74-year-old male with a past medical history significant for diabetes mellitus hypertension hyperlipidemia pneumonia chronic renal insufficiency presenting to the hospital for evaluation of worsening renal failure, patient apparently was getting [facility] did have a positive UA prompted this consultation. On today's evaluation that is 11/18/2024, Patient is afebrile patient is currently on room air and denies having any shortness of breath, the patient denies any chest pain or cough, the patient denies any nausea vomiting did not have any abdominal pain and no diarrhea, no new symptoms. Patient white count 9.26, creatinine 2.5 urine culture with MDRO ESBL with intermediate sensitivity to ertapenem Objective - Vital Signs Vital signs: Vital Signs Temp 97.4 F L 11/18/24 12:58 Pulse 74 11/18/24 12:58 Resp 18 11/18/24 12:58 BP 157/60 11/18/24 12:58 Pulse Ox 99 11/18/24 12:58 FiO2 Intake & Output 11/17/24 11/18/24 11/18/24 18:59 06:59 18:59 Intake Total 1300 1080 Output Total 700 400 350 Balance 600 -400 730 Intake: Oral 1300 1080 Output: Urine 700 400 350 Other: Voiding Method Urinal Urinal Urinal # Bowel Movements 1 # Emeses 1 - Exam GENERAL DESCRIPTION: An elderly male lying in bed in no distress RESPIRATORY SYSTEM: Unlabored breathing , decreased breath sounds at bases HEART: S1 S2 regular rate and rhythm , ABDOMEN: Soft , no tenderness EXTREMITIES: No edema feet - Labs CBC & Chem 7: 11/18/24 05:04 11/18/24 05:04 Labs: Abnormal Lab Results - Last 24 Hours (Table) 11/17/24 11/17/24 11/18/24 Range/Units 17:04 19:58 05:04 RBC (4.40-5.60) X 10*6/uL Hgb (13.0-17.0) g/dL Hct (39.6-50.0) % MCV (80.0-97.0) FL MCHC (32.0-37.0) g/dL RDW (11.5-14.5) % Monocytes # (0.20-1.00) X 10*3/uL Eosinophils # (0.04-0.35) X 10*3/uL Chloride (96-109) mmol/L BUN (9.0-27.0) mg/dL Creatinine (0.6-1.5) mg/dL Est GFR (CKD-EPI) (>=60) BUN/Creatinine Ratio (12.00-20.00) Ratio Glucose (70-110) mg/dL POC Glucose (mg/dL) 138 H 148 H (70-110) mg/dL Hemoglobin A1c 6.5 H (<=6.0) % Calcium (8.7-10.3) mg/dL Alkaline Phosphatase (41-126) U/L Total Protein (6.2-8.2) g/dL Albumin (3.8-4.9) g/dL Albumin/Globulin Ratio (1.60-3.17) Ratio 11/18/24 11/18/24 11/18/24 Range/Units 05:04 05:04 07:00 RBC 2.98 L (4.40-5.60) X 10*6/uL Hgb 9.5 L (13.0-17.0) g/dL Hct 30.4 L (39.6-50.0) % MCV 102.0 H (80.0-97.0) FL MCHC 31.3 L (32.0-37.0) g/dL RDW 15.3 H (11.5-14.5) % Monocytes # 1.23 H (0.20-1.00) X 10*3/uL Eosinophils # 0.68 H (0.04-0.35) X 10*3/uL Chloride 110 H (96-109) mmol/L BUN 89.2 H (9.0-27.0) mg/dL Creatinine 2.5 H (0.6-1.5) mg/dL Est GFR (CKD-EPI) 26 L (>=60) BUN/Creatinine Ratio 35.68 H (12.00-20.00) Ratio Glucose 60 L (70-110) mg/dL POC Glucose (mg/dL) 59 L (70-110) mg/dL Hemoglobin A1c (<=6.0) % Calcium 8.4 L (8.7-10.3) mg/dL Alkaline Phosphatase 154 H (41-126) U/L Total Protein 6.1 L (6.2-8.2) g/dL Albumin 3.0 L (3.8-4.9) g/dL Albumin/Globulin Ratio 0.97 L (1.60-3.17) Ratio Microbiology - Last 24 Hours (Table) 11/15/24 19:35 Urine Culture - Final Urine,Voided Klebsiella pneumo ESBL MDRO 11/15/24 19:39 Blood Culture - Preliminary Blood Assessment and Plan (1) UTI (urinary tract infection) Current Visit: Yes Status: Acute Code(s): N39.0 - URINARY TRACT INFECTION, SITE NOT SPECIFIED SNOMED Code(s): 63822326 Plan: 1patient presented to hospital with worsening kidney function in this patient who did have some suprapubic discomfort positive UA concerning for UTI not entirely excluded likely from bladder gram-negative pathogen panel and the patient was receiving IV antibiotic at the senior care in the form of Invanz 2-patient culture now growing multiresistant Klebsiella with intermediate sensitive to Invanz which will be discontinued patient started on meropenem Dictation was produced using [employer] dictation software. please excuse any grammatical, word or spelling errors. Time with Patient: Less than 30
[2024-11-18] MEDS: MEROPENEM 2 GM in SODIUM CHLORIDE 0.9% 100 ML IVPB SCH (16:59)
[2024-11-18 17:25] LABS: Glucose,Whole Blood 115 mg/dL (70-110)
[2024-11-18 20:18] LABS: Glucose,Whole Blood 136 mg/dL (70-110)
--- NOTE | 2024-11-19 00:21 | PN ---
PROGRESS NOTE DATE OF SERVICE: 11/18/2024 SUBJECTIVE: This is a 74-year-old gentleman admitted with acute on chronic renal failure, as well as possibly UTI. He is continuously monitored. The patient had ESBL Klebsiella MDRO grown from the culture. OBJECTIVE: VITAL SIGNS: Pulse 74, blood pressure 147/60, respirations 18. CHEST: Clear to auscultation. CARDIOVASCULAR: S1, S2. ABDOMEN: Soft. NERVOUS SYSTEM: Nonfocal. LABORATORY DATA: Reviewed. ASSESSMENT: 1. Acute urinary tract infection with Klebsiella pneumonia, extended spectrum beta lactamase, multidrug-resistant organism. 2. Acute on chronic renal failure. 3. History of asthma. 4. Diabetes mellitus, type 2. 5. Hypertension. 6. Hyperlipidemia. RECOMMENDATIONS: Recommend to continue current medications, continue symptomatic treatment. Otherwise, the patient is on ertapenem at this time. The creatinine is improved. Repeat labs. Dr. Castellano will follow. MMLIZL / KELLYN: [id number] /
[2024-11-19 07:04] LABS: Glucose,Whole Blood 58 mg/dL (70-110)
[2024-11-19 07:19] LABS: Glucose,Whole Blood 61 mg/dL (70-110)
[2024-11-19 07:34] LABS: Glucose,Whole Blood 80 mg/dL (70-110)
[2024-11-19 08:41] LABS: BUN/Creat Ratio 35.62 Ratio (12.00-20.00); Blood Urea Nitrogen 74.8 mg/dL (9.0-27.0); Calcium 8.4 mg/dL (8.7-10.3); Carbon Dioxide 24.4 mmol/L (21.6-31.8); Chloride 111 mmol/L (96-109); Glucose 54 mg/dL (70-110); Potassium 5.1 mmol/L (3.5-5.5); Sodium 143 mmol/L (135-145)
--- NOTE | 2024-11-19 09:17 | P.PN ---
Subjective Patient is seen in follow-up for acute kidney injury on chronic kidney disease. Renal function improving. Admits to good urine output. Wants to be discharged. Vital signs are stable. General: No acute distress. HEENT: Head exam is unremarkable. LUNGS: No audible rhonchi or wheezes. HEART: Rate and Rhythm are regular. ABDOMEN: Obese, nontender. EXTREMITITES: 1+ edema. Objective - Vital Signs Vital signs: Vital Signs Temp 97.6 F 11/19/24 07:32 Pulse 77 11/19/24 07:32 Resp 18 11/19/24 07:32 BP 143/56 11/19/24 07:32 Pulse Ox 99 11/19/24 07:32 FiO2 Intake & Output 11/18/24 11/19/24 11/19/24 18:59 06:59 18:59 Intake Total 1080 Output Total 350 950 Balance 730 -950 Intake: Oral 1080 Output: Urine 350 950 Other: Voiding Method Urinal Urinal # Bowel Movements 1 # Emeses 1 - Labs CBC & Chem 7: 11/18/24 05:04 11/19/24 04:37 Labs: Abnormal Lab Results - Last 24 Hours (Table) 11/18/24 11/18/24 11/18/24 Range/Units 05:04 05:04 05:04 RBC 2.98 L (4.40-5.60) X 10*6/uL Hgb 9.5 L (13.0-17.0) g/dL Hct 30.4 L (39.6-50.0) % MCV 102.0 H (80.0-97.0) FL MCHC 31.3 L (32.0-37.0) g/dL RDW 15.3 H (11.5-14.5) % Monocytes # 1.23 H (0.20-1.00) X 10*3/uL Eosinophils # 0.68 H (0.04-0.35) X 10*3/uL Chloride 110 H (96-109) mmol/L BUN 89.2 H (9.0-27.0) mg/dL Creatinine 2.5 H (0.6-1.5) mg/dL Est GFR (CKD-EPI) 26 L (>=60) BUN/Creatinine Ratio 35.68 H (12.00-20.00) Ratio Glucose 60 L (70-110) mg/dL POC Glucose (mg/dL) (70-110) mg/dL Hemoglobin A1c 6.5 H (<=6.0) % Calcium 8.4 L (8.7-10.3) mg/dL Alkaline Phosphatase 154 H (41-126) U/L Total Protein 6.1 L (6.2-8.2) g/dL Albumin 3.0 L (3.8-4.9) g/dL Albumin/Globulin Ratio 0.97 L (1.60-3.17) Ratio 11/18/24 11/18/24 11/19/24 Range/Units 17:23 20:17 04:37 RBC (4.40-5.60) X 10*6/uL Hgb (13.0-17.0) g/dL Hct (39.6-50.0) % MCV (80.0-97.0) FL MCHC (32.0-37.0) g/dL RDW (11.5-14.5) % Monocytes # (0.20-1.00) X 10*3/uL Eosinophils # (0.04-0.35) X 10*3/uL Chloride 111 H (96-109) mmol/L BUN 74.8 H (9.0-27.0) mg/dL Creatinine 2.1 H (0.6-1.5) mg/dL Est GFR (CKD-EPI) 32 L (>=60) BUN/Creatinine Ratio 35.62 H (12.00-20.00) Ratio Glucose 54 L (70-110) mg/dL POC Glucose (mg/dL) 115 H 136 H (70-110) mg/dL Hemoglobin A1c (<=6.0) % Calcium 8.4 L (8.7-10.3) mg/dL Alkaline Phosphatase (41-126) U/L Total Protein (6.2-8.2) g/dL Albumin (3.8-4.9) g/dL Albumin/Globulin Ratio (1.60-3.17) Ratio 11/19/24 11/19/24 Range/Units 07:01 07:16 RBC (4.40-5.60) X 10*6/uL Hgb (13.0-17.0) g/dL Hct (39.6-50.0) % MCV (80.0-97.0) FL MCHC (32.0-37.0) g/dL RDW (11.5-14.5) % Monocytes # (0.20-1.00) X 10*3/uL Eosinophils # (0.04-0.35) X 10*3/uL Chloride (96-109) mmol/L BUN (9.0-27.0) mg/dL Creatinine (0.6-1.5) mg/dL Est GFR (CKD-EPI) (>=60) BUN/Creatinine Ratio (12.00-20.00) Ratio Glucose (70-110) mg/dL POC Glucose (mg/dL) 58 L 61 L (70-110) mg/dL Hemoglobin A1c (<=6.0) % Calcium (8.7-10.3) mg/dL Alkaline Phosphatase (41-126) U/L Total Protein (6.2-8.2) g/dL Albumin (3.8-4.9) g/dL Albumin/Globulin Ratio (1.60-3.17) Ratio Microbiology - Last 24 Hours (Table) 11/15/24 19:39 Blood Culture - Preliminary Blood 11/15/24 19:35 Urine Culture - Final Urine,Voided Klebsiella pneumo ESBL MDRO Assessment and Plan Plan: Assessment: 1. Acute kidney injury secondary to ATN and severe sepsis. No hydronephrosis noted on imaging. Creatinine peaked at 2.8 this admission and is 2.1 today. 2. Chronic kidney disease stage IIIb with recent creatinines near 2 secondary to diabetic kidney disease. 3. ESBL Klebsiella pneumonia UTI on antibiotics. 4. Hypertension with chronic kidney disease. Stable. 5. Anemia of chronic kidney disease maintained on Aranesp. 6. Diabetes mellitus. 7. Volume overload. Plan: Resume Lasix 40 mg once daily. Avoid nephrotoxins. Continue to monitor renal function and urine output.
[2024-11-19] MEDS: ERGOCALCIFEROL 1,250 MCG (50,000 IU) CAPSULE PO SCH (09:32)
[2024-11-19 10:02] LABS: Basophils # (A) 0.05 X 10*3/uL (0.00-0.10); Basophils % (A) 0.6 %; Eosinophils % (A) 9.7 %; HCT 31.4 % (39.6-50.0); HGB 9.5 g/dL (13.0-17.0); Lymphocytes % (A) 25.5 %; MCH 31.8 pg (27.0-32.0); MCHC 30.3 g/dL (32.0-37.0); Mean Platelet Volume 10.6 FL (9.5-12.2); Monocytes # (A) 1.01 X 10*3/uL (0.20-1.00); Monocytes % (A) 12.3 %; NRBC Per 100 WBC 0 X 10*3/uL (0.00-0.01); Neutrophils # (A) 4.24 X 10*3/uL (1.80-7.70); Neutrophils % (A) 51.7 %; Platelet Count 175 X 10*3/uL (140-440); RBC 2.99 X 10*6/uL (4.40-5.60); RDW 15.1 % (11.5-14.5); WBC 8.22 X 10*3/uL (4.50-10.00)
[2024-11-19 12:08] LABS: Glucose,Whole Blood 178 mg/dL (70-110)
[2024-11-19 16:50] LABS: Glucose,Whole Blood 129 mg/dL (70-110)
[2024-11-19 20:38] LABS: Glucose,Whole Blood 107 mg/dL (70-110)
[2024-11-20 04:02] LABS: Glucose,Whole Blood 53 mg/dL (70-110)
[2024-11-20 04:33] LABS: Glucose,Whole Blood 80 mg/dL (70-110)
[2024-11-20 07:14] LABS: Glucose,Whole Blood 104 mg/dL (70-110)
[2024-11-20] MEDS: FUROSEMIDE 40 MG TAB PO SCH (08:44)
--- NOTE | 2024-11-20 11:15 | P.PN ---
Subjective Patient is seen in follow-up for acute kidney injury on chronic kidney disease. Renal function improving with creatinine 2.1 yesterday. Admits to good urine output. Wants to be discharged. Vital signs are stable. General: No acute distress. HEENT: Head exam is unremarkable. LUNGS: No audible rhonchi or wheezes. HEART: Rate and Rhythm are regular. ABDOMEN: Obese, nontender. EXTREMITITES: 1+ edema. Objective - Vital Signs Vital signs: Vital Signs Temp 98.0 F 11/20/24 07:09 Pulse 80 11/20/24 07:09 Resp 18 11/20/24 07:09 BP 142/67 11/20/24 07:09 Pulse Ox 99 11/20/24 07:09 FiO2 Intake & Output 11/19/24 11/20/24 11/20/24 18:59 06:59 18:59 Output Total 1050 750 Balance -1050 -750 Output: Urine 1050 750 Other: Voiding Method Urinal Urinal # Bowel Movements 1 - Labs CBC & Chem 7: 11/19/24 04:27 11/19/24 04:37 Labs: Abnormal Lab Results - Last 24 Hours (Table) 11/19/24 11/19/24 11/20/24 Range/Units 12:05 16:48 04:00 POC Glucose (mg/dL) 178 H 129 H 53 L (70-110) mg/dL Assessment and Plan Plan: Assessment: 1. Acute kidney injury secondary to ATN and severe sepsis. No hydronephrosis noted on imaging. Creatinine peaked at 2.8 this admission and 2.1 yesterday. 2. Chronic kidney disease stage IIIb with recent creatinines near 2 secondary to diabetic kidney disease. 3. ESBL Klebsiella pneumonia UTI on antibiotics. 4. Hypertension with chronic kidney disease. Stable. 5. Anemia of chronic kidney disease maintained on Aranesp. 6. Diabetes mellitus. 7. Volume overload. Diuretics resumed. Plan: Maintain Lasix. Avoid nephrotoxins. Continue to monitor renal function and urine output. Repeat BMP and magnesium level 2 to 3 days post discharge. Follow-up outpatient in 1 week.
[2024-11-20 12:24] LABS: Glucose,Whole Blood 118 mg/dL (70-110)
--- NOTE | 2024-11-20 14:39 | P.PN ---
Subjective Progress Note Date: 11/19/24 Principal diagnosis: Reason for follow-up is a UTI Patient is a 74-year-old male with a past medical history significant for diabetes mellitus hypertension hyperlipidemia pneumonia chronic renal insufficiency presenting to the hospital for evaluation of worsening renal failure, patient apparently was getting treatment for UTI at the [facility]term did have a positive UA prompted this consultation. On today's evaluation that is 11/19/2024, patient has been afebrile, patient is breathing comfortably and is currently on room air, patient denies having any significant cough no chest pain, patient denies nausea vomiting or diarrhea and no abdominal pain mention feeling better. Patient white count is 8.22, creatinine is 2.1 Objective - Vital Signs Vital signs: Vital Signs Temp 97.6 F 11/19/24 07:32 Pulse 77 11/19/24 07:32 Resp 18 11/19/24 07:32 BP 143/56 11/19/24 07:32 Pulse Ox 99 11/19/24 07:32 FiO2 Intake & Output 11/18/24 11/19/24 11/19/24 18:59 06:59 18:59 Intake Total 1080 Output Total 350 950 550 Balance 730 -950 -550 Intake: Oral 1080 Output: Urine 350 950 550 Other: Voiding Method Urinal Urinal Urinal # Bowel Movements 1 # Emeses 1 - Exam GENERAL DESCRIPTION: An elderly male lying in bed in no distress RESPIRATORY SYSTEM: Unlabored breathing , decreased breath sounds at bases HEART: S1 S2 regular rate and rhythm , ABDOMEN: Soft , no tenderness EXTREMITIES: No edema feet - Labs CBC & Chem 7: 11/19/24 04:27 11/19/24 04:37 Labs: Abnormal Lab Results - Last 24 Hours (Table) 11/18/24 11/18/24 11/19/24 Range/Units 17:23 20:17 04:27 RBC 2.99 L (4.40-5.60) X 10*6/uL Hgb 9.5 L (13.0-17.0) g/dL Hct 31.4 L (39.6-50.0) % MCV 105.0 H (80.0-97.0) FL MCHC 30.3 L (32.0-37.0) g/dL RDW 15.1 H (11.5-14.5) % Monocytes # 1.01 H (0.20-1.00) X 10*3/uL Eosinophils # 0.80 H (0.04-0.35) X 10*3/uL Chloride (96-109) mmol/L BUN (9.0-27.0) mg/dL Creatinine (0.6-1.5) mg/dL Est GFR (CKD-EPI) (>=60) BUN/Creatinine Ratio (12.00-20.00) Ratio Glucose (70-110) mg/dL POC Glucose (mg/dL) 115 H 136 H (70-110) mg/dL Calcium (8.7-10.3) mg/dL 11/19/24 11/19/24 11/19/24 Range/Units 04:37 07:01 07:16 RBC (4.40-5.60) X 10*6/uL Hgb (13.0-17.0) g/dL Hct (39.6-50.0) % MCV (80.0-97.0) FL MCHC (32.0-37.0) g/dL RDW (11.5-14.5) % Monocytes # (0.20-1.00) X 10*3/uL Eosinophils # (0.04-0.35) X 10*3/uL Chloride 111 H (96-109) mmol/L BUN 74.8 H (9.0-27.0) mg/dL Creatinine 2.1 H (0.6-1.5) mg/dL Est GFR (CKD-EPI) 32 L (>=60) BUN/Creatinine Ratio 35.62 H (12.00-20.00) Ratio Glucose 54 L (70-110) mg/dL POC Glucose (mg/dL) 58 L 61 L (70-110) mg/dL Calcium 8.4 L (8.7-10.3) mg/dL 11/19/24 Range/Units 12:05 RBC (4.40-5.60) X 10*6/uL Hgb (13.0-17.0) g/dL Hct (39.6-50.0) % MCV (80.0-97.0) FL MCHC (32.0-37.0) g/dL RDW (11.5-14.5) % Monocytes # (0.20-1.00) X 10*3/uL Eosinophils # (0.04-0.35) X 10*3/uL Chloride (96-109) mmol/L BUN (9.0-27.0) mg/dL Creatinine (0.6-1.5) mg/dL Est GFR (CKD-EPI) (>=60) BUN/Creatinine Ratio (12.00-20.00) Ratio Glucose (70-110) mg/dL POC Glucose (mg/dL) 178 H (70-110) mg/dL Calcium (8.7-10.3) mg/dL Microbiology - Last 24 Hours (Table) 11/15/24 19:39 Blood Culture - Preliminary Blood 11/15/24 19:35 Urine Culture - Final Urine,Voided Klebsiella pneumo ESBL MDRO Assessment and Plan (1) UTI (urinary tract infection) Current Visit: Yes Status: Acute Code(s): N39.0 - URINARY TRACT INFECTION, SITE NOT SPECIFIED SNOMED Code(s): 96298999 (2) Infection with ESBL Klebsiella oxytoca Current Visit: Yes Status: Acute Code(s): A49.8 - OTHER BACTERIAL INFECTIONS OF UNSPECIFIED SITE; Z16.12 - EXTENDED SPECTRUM BETA LACTAMASE (ESBL) RESISTANCE SNOMED Code(s): 8081151112 Plan: 1patient presented to hospital with worsening kidney function in this patient who did have some suprapubic discomfort positive UA concerning for UTI not entirely excluded likely from bladder gram-negative pathogen panel and the patient was receiving IV antibiotic at the longterm in the form of Invanz 2-patient culture now growing multiresistant Klebsiella with intermediate sensitive to Invanz 3patient is currently being treated with meropenem and monitor clinical course closely Dictation was produced using [employer] dictation software. please excuse any grammatical, word or spelling errors. Time with Patient: Less than 30
--- NOTE | 2024-11-20 14:40 | P.PN ---
Subjective Progress Note Date: 11/20/24 Principal diagnosis: Reason for follow-up is a UTI Patient is a 74-year-old male with a past medical history significant for diabetes mellitus hypertension hyperlipidemia pneumonia chronic renal insufficiency presenting to the hospital for evaluation of worsening renal failure, patient apparently [facility] did have a positive UA prompted this consultation. On today's evaluation that is 11/20/2024, Patient is afebrile this morning patient denies having any chest pain shortness of breath or cough, the patient is currently on room air, patient denies any abdominal pain no diarrhea no nausea no vomiting, patient mention feeling better wants to go back to the [facility]. No new lab has been repeated today blood culture has been negative Objective - Vital Signs Vital signs: Vital Signs Temp 97.7 F 11/20/24 12:05 Pulse 79 11/20/24 12:05 Resp 18 11/20/24 12:05 BP 123/60 11/20/24 12:05 Pulse Ox 99 11/20/24 12:05 FiO2 Intake & Output 11/19/24 11/20/24 11/20/24 18:59 06:59 18:59 Output Total 1050 750 700 Balance -1050 -750 -700 Output: Urine 1050 750 700 Other: Voiding Method Urinal Urinal Urinal # Bowel Movements 1 - Exam GENERAL DESCRIPTION: An elderly male lying in bed in no distress RESPIRATORY SYSTEM: Unlabored breathing , decreased breath sounds at bases HEART: S1 S2 regular rate and rhythm , ABDOMEN: Soft , no tenderness EXTREMITIES: No edema feet - Labs CBC & Chem 7: 11/19/24 04:27 11/19/24 04:37 Labs: Abnormal Lab Results - Last 24 Hours (Table) 11/19/24 11/20/24 11/20/24 Range/Units 16:48 04:00 12:06 POC Glucose (mg/dL) 129 H 53 L 118 H (70-110) mg/dL Assessment and Plan (1) UTI (urinary tract infection) Current Visit: Yes Status: Acute Code(s): N39.0 - URINARY TRACT INFECTION, SITE NOT SPECIFIED SNOMED Code(s): 95275980 (2) Infection with ESBL Klebsiella oxytoca Current Visit: Yes Status: Acute Code(s): A49.8 - OTHER BACTERIAL INFECTIONS OF UNSPECIFIED SITE; Z16.12 - EXTENDED SPECTRUM BETA LACTAMASE (ESBL) RESISTANCE SNOMED Code(s): 0754657976 Plan: 1patient presented to hospital with worsening kidney function in this patient who did have some suprapubic discomfort positive UA concerning for UTI not entirely excluded likely from bladder gram-negative pathogen panel and the patient was receiving IV antibiotic at the [facility] in the form of Invanz 2-patient culture now growing multiresistant Klebsiella with intermediate sensitive to Invanz 3patient is currently being treated with meropenem plan is for at least a 7- day course on discharge, discharge medication has been updated, patient already has a midline Dictation was produced using [employer] dictation software. please excuse any grammatical, word or spelling errors. Time with Patient: Less than 30
[2024-11-20 17:10] LABS: Glucose,Whole Blood 134 mg/dL (70-110)
[2024-11-20 20:33] LABS: Glucose,Whole Blood 155 mg/dL (70-110)
[2024-11-21 01:16] LABS: Glucose,Whole Blood 91 mg/dL (70-110)
--- NOTE | 2024-11-21 06:39 | PN ---
PROGRESS NOTE DATE OF SERVICE: 11/19/2024 CHIEF COMPLAINT: CKD. HISTORY OF PRESENT ILLNESS: This gentleman is doing fairly well. BUN and creatinine are dropping some. He feels well. He is not nauseated. PHYSICAL EXAMINATION: VITAL SIGNS: Normal. CHEST: Clear. CARDIAC: Normal. ABDOMEN: Protuberant and soft. IMPRESSION: 1. Chronic kidney disease. 2. Type 2 diabetes mellitus. 3. Chronic myelogenous leukemia. 4. Obesity. 5. Congestive heart failure. 6. Urinary tract infection. PLAN: Continue current program and continue to monitor his renal function. He will be able [facility] back to the [facility] once he is cleared by Nephrology. MMODL / IJN: [id number] /
--- NOTE | 2024-11-21 07:09 | PN ---
PROGRESS NOTE DATE OF SERVICE: 11/20/2024 CHIEF COMPLAINT: CKD, diabetes, congestive heart failure, and CML. HISTORY OF PRESENT ILLNESS: This gentleman is doing fairly well and he thinks that he is going home. There is no mention in his note from Nephrology that he is cleared. PHYSICAL EXAMINATION: GENERAL: He is awake and alert. VITAL SIGNS: Normal. CHEST: Clear. CARDIAC: Normal. ABDOMEN: Protuberant. IMPRESSION: 1. Chronic renal failure. 2. History of type 2 diabetes. 3. Congestive heart failure. 4. Chronic myelogenous leukemia. 5. Obesity. 6. Recent fracture of the right lower extremity. PLAN: Await for clearance from Nephrology for discharge back to the [facility]. MMODL / IJN: [id number] /
[2024-11-21 07:20] LABS: Glucose,Whole Blood 84 mg/dL (70-110)
[2024-11-21] MEDS: INSULIN DETEMIR (LEVEMIR) 100 UNIT/ML SYR SQ SCH (08:05)
--- NOTE | 2024-11-21 09:23 | P.PN ---
Subjective Patient is seen in follow-up for acute kidney injury on chronic kidney disease. Renal function improving with creatinine 2.1 dated November 19, 2024. Admits to good urine output. No active complaints. Vital signs are stable. General: No acute distress. HEENT: Head exam is unremarkable. LUNGS: No audible rhonchi or wheezes. HEART: Rate and Rhythm are regular. ABDOMEN: Obese, nontender. EXTREMITITES: 1+ edema. Objective - Vital Signs Vital signs: Vital Signs Temp 98.4 F 11/21/24 07:20 Pulse 83 11/21/24 07:20 Resp 16 11/21/24 07:20 BP 132/56 11/21/24 07:20 Pulse Ox 97 11/21/24 07:20 FiO2 Intake & Output 11/20/24 11/21/24 11/21/24 18:59 06:59 18:59 Output Total 1400 1400 Balance -1400 -1400 Output: Urine 1400 1400 Other: Voiding Method Urinal External Catheter # Bowel Movements 1 4 - Labs CBC & Chem 7: 11/19/24 04:27 11/19/24 04:37 Labs: Abnormal Lab Results - Last 24 Hours (Table) 11/20/24 11/20/24 11/20/24 Range/Units 12:06 17:09 20:30 POC Glucose (mg/dL) 118 H 134 H 155 H (70-110) mg/dL Microbiology - Last 24 Hours (Table) 11/15/24 19:39 Blood Culture - Final Blood Assessment and Plan Plan: Assessment: 1. Acute kidney injury secondary to ATN and severe sepsis. No hydronephrosis noted on imaging. Creatinine peaked at 2.8 this admission and 2.1 November 19, 2024. 2. Chronic kidney disease stage IIIb with recent creatinines near 2 secondary to diabetic kidney disease. 3. ESBL Klebsiella pneumonia UTI on antibiotics. 4. Hypertension with chronic kidney disease. Stable. 5. Anemia of chronic kidney disease maintained on Aranesp. 6. Diabetes mellitus. 7. Volume overload. Diuretics resumed. Plan: Maintain Lasix. Avoid nephrotoxins. Continue to monitor renal function and urine output. Repeat BMP and magnesium level 2 to 3 days post discharge. Follow-up outpatient in 1 week.
[2024-11-21 10:54] LABS: Blood Urea Nitrogen 65.3 mg/dL (9.0-27.0); Calcium 8.5 mg/dL (8.7-10.3); Carbon Dioxide 23.1 mmol/L (21.6-31.8); Chloride 109 mmol/L (96-109); Glucose 64 mg/dL (70-110); Magnesium 2.1 mg/dL (1.5-2.4); Potassium 5.5 mmol/L (3.5-5.5); Sodium 139 mmol/L (135-145)
[2024-11-21 12:13] LABS: Glucose,Whole Blood 77 mg/dL (70-110)
[2024-11-21 17:15] LABS: Glucose,Whole Blood 106 mg/dL (70-110)
[2024-11-21 20:27] LABS: Glucose,Whole Blood 124 mg/dL (70-110)
[2024-11-22 01:54] LABS: Glucose,Whole Blood 79 mg/dL (70-110)
--- NOTE | 2024-11-22 06:51 | PN ---
PROGRESS NOTE DATE OF SERVICE: 11/21/2024 CHIEF COMPLAINT: Acute kidney injury and CKD. HISTORY OF PRESENT ILLNESS: This gentleman is doing well. His BUN and creatinine are slowly coming down. PHYSICAL EXAMINATION: CHEST: Clear. CARDIAC: Normal. ABDOMEN: Soft, nontender. IMPRESSION: 1. Chronic kidney disease. 2. Congestive heart failure. 3. Encephalopathy. 4. Obesity. 5. Fracture of the right leg. 6. Chronic myelogenous leukemia. PLAN: Await clearance from Nephrology to return him to the senior living. MMODL / IJN: [id number] /
[2024-11-22 07:31] LABS: Glucose,Whole Blood 91 mg/dL (70-110)
--- NOTE | 2024-11-22 08:33 | P.PN ---
Subjective Progress Note Date: 11/21/24 Principal diagnosis: Reason for follow-up is a UTI Patient is a 74-year-old male with a past medical history significant for diabetes mellitus hypertension hyperlipidemia pneumonia chronic renal insufficiency presenting to the hospital for evaluation of worsening renal failure, patient apparently was getting treatment for UTI at the snf did have a positive UA prompted this consultation. On today's evaluation that is 11/21/2024,the patient denies any fever or any chills, patient is breathing comfortably on room air, the patient denies chest pain shortness of breath and no significant cough, patient denies abdominal pain, no nausea vomiting or diarrhea. Patient did have a creatinine 2.1 no CBC was done today blood culture has been negative Objective - Vital Signs Vital signs: Vital Signs Temp 98.4 F 11/21/24 07:20 Pulse 83 11/21/24 07:20 Resp 16 11/21/24 07:20 BP 132/56 11/21/24 07:20 Pulse Ox 97 11/21/24 07:20 FiO2 Intake & Output 11/20/24 11/21/24 11/21/24 18:59 06:59 18:59 Output Total 1400 1400 500 Balance -1400 -1400 -500 Output: Urine 1400 1400 500 Other: Voiding Method Urinal External Catheter External Catheter # Bowel Movements 1 4 - Exam GENERAL DESCRIPTION: An elderly male lying in bed in no distress RESPIRATORY SYSTEM: Unlabored breathing , decreased breath sounds at bases HEART: S1 S2 regular rate and rhythm , ABDOMEN: Soft , no tenderness EXTREMITIES: No edema feet - Labs CBC & Chem 7: 11/19/24 04:27 11/21/24 05:50 Labs: Abnormal Lab Results - Last 24 Hours (Table) 11/20/24 11/20/24 11/20/24 Range/Units 12:06 17:09 20:30 POC Glucose (mg/dL) 118 H 134 H 155 H (70-110) mg/dL Microbiology - Last 24 Hours (Table) 11/15/24 19:39 Blood Culture - Final Blood Assessment and Plan (1) UTI (urinary tract infection) Current Visit: Yes Status: Acute Code(s): N39.0 - URINARY TRACT INFECTION, SITE NOT SPECIFIED SNOMED Code(s): 75172402 (2) Infection with ESBL Klebsiella oxytoca Current Visit: Yes Status: Acute Code(s): A49.8 - OTHER BACTERIAL INFECTIONS OF UNSPECIFIED SITE; Z16.12 - EXTENDED SPECTRUM BETA LACTAMASE (ESBL) RESISTANCE SNOMED Code(s): 5454900436 Plan: 1patient presented to hospital with worsening kidney function in this patient who did have some suprapubic discomfort positive UA concerning for UTI not entirely excluded likely from bladder gram-negative pathogen panel and the patient was receiving IV antibiotic at the snf in the form of Invanz 2-patient culture now growing multiresistant Klebsiella with intermediate sensitive to Invanz 3patient being treated with meropenem with plan is for at least a 7-day course on discharge, question concern answered Dictation was produced using [employer] dictation software. please excuse any grammatical, word or spelling errors. Time with Patient: Less than 30
[2024-11-22] MEDS: SODIUM ZIRCONIUM CYCLOSILICATE 10 GM PACKET PO SCH (08:56)
--- NOTE | 2024-11-22 10:37 | P.PN ---
Subjective Patient is seen in follow-up for acute kidney injury on chronic kidney disease. Renal function stable with creatinine 2.1 yesterday. Admits to good urine output. No active complaints. Vital signs are stable. General: No acute distress. HEENT: Head exam is unremarkable. LUNGS: No audible rhonchi or wheezes. HEART: Rate and Rhythm are regular. ABDOMEN: Obese, nontender. EXTREMITITES: 1+ edema. Objective - Vital Signs Vital signs: Vital Signs Temp 97.7 F 11/22/24 08:27 Pulse 76 11/22/24 08:27 Resp 18 11/22/24 08:27 BP 146/65 11/22/24 08:27 Pulse Ox 99 11/22/24 09:19 FiO2 Intake & Output 11/21/24 11/22/24 11/22/24 18:59 06:59 18:59 Intake Total 1317 322 Output Total 2100 1550 Balance -783 -1228 Intake: Intake, IV Titration 100 Amount Meropenem 2 gm In Sodium 100 Chloride 0.9% 100 ml @ 33 .3 mls/hr IVPB Q12H [facility] Rx#:[id number] Oral 1317 222 Output: Urine 2100 1550 Other: Voiding Method External Catheter External Catheter # Bowel Movements 1 1 - Labs CBC & Chem 7: 11/19/24 04:27 11/21/24 05:50 Labs: Abnormal Lab Results - Last 24 Hours (Table) 11/21/24 11/21/24 Range/Units 05:50 20:23 BUN 65.3 H (9.0-27.0) mg/dL Creatinine 2.1 H (0.6-1.5) mg/dL Est GFR (CKD-EPI) 32 L (>=60) BUN/Creatinine Ratio 31.10 H (12.00-20.00) Ratio Glucose 64 L (70-110) mg/dL POC Glucose (mg/dL) 124 H (70-110) mg/dL Calcium 8.5 L (8.7-10.3) mg/dL Assessment and Plan Plan: Assessment: 1. Acute kidney injury secondary to ATN and severe sepsis. No hydronephrosis noted on imaging. Creatinine peaked at 2.8 this admission and stable at 2.1 last 2 days. 2. Chronic kidney disease stage IIIb with recent creatinines near 2 secondary to diabetic kidney disease. 3. ESBL Klebsiella pneumonia UTI on antibiotics. 4. Hypertension with chronic kidney disease. Stable. 5. Anemia of chronic kidney disease maintained on Aranesp. 6. Diabetes mellitus. 7. Volume overload. Diuretics resumed. Plan: Maintain Lasix. Avoid nephrotoxins. Continue to monitor renal function and urine output. Repeat BMP and magnesium level 2 to 3 days post discharge. Follow-up outpatient in 1 week.
--- NOTE | 2024-11-22 11:57 | DS ---
DISCHARGE SUMMARY CHIEF COMPLAINT: Acute on chronic renal failure. HISTORY OF PRESENT ILLNESS AND PHYSICAL EXAMINATION: Details of this man's history and physical can be found in the initial workup. LABORATORY STUDIES: While he was in the hospital, he had laboratory studies, details of which can be found in the laboratory section of his chart. COURSE IN THE HOSPITAL: After admission, he was placed on bedrest, started on intravenous fluids and he was seen and followed by Nephrology. His BUN and creatinine slowly came down. He had no significant symptoms. He remained awake and alert. Creatinine was down to around 2.1 and it was felt that [facility] could [facility] to the [facility]. FINAL DIAGNOSES: 1. Chronic kidney failure. 2. Acute kidney injury. 3. Congestive heart failure. 4. Cardiomyopathy. 5. Morbid obesity. 6. Insulin-dependent diabetes mellitus. 7. Fracture of the right femur. 8. Chronic myelogenous leukemia. 9. Chronic urinary tract infection. OPERATIONS: None. CONSULTATION: Nephrology. He is improved. MMLIZL / KELLYN: [id number] /
[2024-11-22 12:13] LABS: Glucose,Whole Blood 99 mg/dL (70-110)
--- NOTE | 2024-11-22 12:35 | P.PN ---
Subjective Progress Note Date: 11/22/24 Principal diagnosis: Reason for follow-up is a UTI Patient is a 74-year-old male with a past medical history significant for diabetes mellitus hypertension hyperlipidemia pneumonia chronic renal insufficiency presenting to the hospital for evaluation of worsening renal failure, patient apparently was getting treatment for UTI at the long-term did have a positive UA prompted this consultation. On today's evaluation that is 11/22/2024,the patient remains to be afebrile, patient is on room air not requiring supplemental oxygen and denies any shortness of breath no chest pain or cough.Patient denies having any nausea or vomiting, no abdominal pain and no diarrhea has been reported No new lab has been obtained today Objective - Vital Signs Vital signs: Vital Signs Temp 97.7 F 11/22/24 08:27 Pulse 76 11/22/24 08:27 Resp 18 11/22/24 08:27 BP 146/65 11/22/24 08:27 Pulse Ox 99 11/22/24 09:19 FiO2 Intake & Output 11/21/24 11/22/24 11/22/24 18:59 06:59 18:59 Intake Total 1317 322 Output Total 2100 1550 Balance -783 -1228 Intake: Intake, IV Titration 100 Amount Meropenem 2 gm In Sodium 100 Chloride 0.9% 100 ml @ 33 .3 mls/hr IVPB Q12H [facility] Rx#:[id number] Oral 1317 222 Output: Urine 2100 1550 Other: Voiding Method External Catheter External Catheter # Bowel Movements 1 1 - Exam GENERAL DESCRIPTION: An elderly male lying in bed in no distress RESPIRATORY SYSTEM: Unlabored breathing , decreased breath sounds at bases HEART: S1 S2 regular rate and rhythm , ABDOMEN: Soft , no tenderness EXTREMITIES: No edema feet - Labs CBC & Chem 7: 11/19/24 04:27 11/21/24 05:50 Labs: Abnormal Lab Results - Last 24 Hours (Table) 11/21/24 Range/Units 20:23 POC Glucose (mg/dL) 124 H (70-110) mg/dL Assessment and Plan (1) UTI (urinary tract infection) Current Visit: Yes Status: Acute Code(s): N39.0 - URINARY TRACT INFECTION, SITE NOT SPECIFIED SNOMED Code(s): 14855119 (2) Infection with ESBL Klebsiella oxytoca Current Visit: Yes Status: Acute Code(s): A49.8 - OTHER BACTERIAL INFECTIONS OF UNSPECIFIED SITE; Z16.12 - EXTENDED SPECTRUM BETA LACTAMASE (ESBL) RESISTANCE SNOMED Code(s): 6245360113 Plan: 1patient presented to hospital with worsening kidney function in this patient who did have some suprapubic discomfort positive UA concerning for UTI not entir jen excluded likely from bladder gram-negative pathogen panel and the patient was receiving IV antibiotic at the long-term in the form of Invanz 2-patient culture now growing multiresistant Klebsiella with intermediate sensitive to Invanz 3patient has shown clinical improvement and will continue with meropenem for 7- day course on discharge, at bedside question concern answered Dictation was produced using [employer] dictation software. please excuse any grammatical, word or spelling errors. Time with Patient: Less than 30
[2024-11-22 14:37] VITALS: BMI 40.6
[2024-11-22 14:42] VITALS: BP 124/61; PULSE 85; RESP 16; TEMP 97.5
== END 2024-11-22 17:15 | DRG 871 ==
LOC: EC 16:17 → 5NMEDONC 19:42
PROVIDERS: ADMIT Family Medicine; ATTEND Family Medicine
DX: A41.59 Other Gram-negative sepsis (principal); N17.0 Acute kidney failure with tubular necrosis; S72.91XA Unspecified fracture of right femur, initial encounter for closed fracture; C92.10 Chronic myeloid leukemia, BCR/ABL-positive, not having achieved remission; G93.40 Encephalopathy, unspecified; I42.9 Cardiomyopathy, unspecified; N11.9 Chronic tubulo-interstitial nephritis, unspecified; I13.0 Hypertensive heart and chronic kidney disease with heart failure and stage 1 through stage 4 chronic kidney disease, or unspecified chronic kidney disease; D84.9 Immunodeficiency, unspecified; D63.1 Anemia in chronic kidney disease; N18.4 Chronic kidney disease, stage 4 (severe); E11.22 Type 2 diabetes mellitus with diabetic chronic kidney disease; E66.01 Morbid (severe) obesity due to excess calories; J45.909 Unspecified asthma, uncomplicated; Z16.12 Extended spectrum beta lactamase (ESBL) resistance; N39.0 Urinary tract infection, site not specified; Z16.24 Resistance to multiple antibiotics; Z68.41 Body mass index [BMI] 40.0-44.9, adult; I50.9 Heart failure, unspecified; G47.33 Obstructive sleep apnea (adult) (pediatric); E78.5 Hyperlipidemia, unspecified; M10.071 Idiopathic gout, right ankle and foot; M19.041 Primary osteoarthritis, right hand; M19.042 Primary osteoarthritis, left hand; M89.8X8 Other specified disorders of bone, other site; Z87.01 Personal history of pneumonia (recurrent); Z98.84 Bariatric surgery status; R65.20 Severe sepsis without septic shock; Z79.4 Long term (current) use of insulin; Z79.890 Hormone replacement therapy; Z79.899 Other long term (current) drug therapy; Z86.19 Personal history of other infectious and parasitic diseases; Z87.440 Personal history of urinary (tract) infections; Z87.891 Personal history of nicotine dependence; Z98.41 Cataract extraction status, right eye; Z96.1 Presence of intraocular lens; Z90.49 Acquired absence of other specified parts of digestive tract; Z87.19 Personal history of other diseases of the digestive system; Z88.5 Allergy status to narcotic agent; Z88.8 Allergy status to other drugs, medicaments and biological substances; Z88.2 Allergy status to sulfonamides
CPT/HCPCS: 36415; 71045; 76770; 80048; 80053; 81001; 83036; 83605; 83735; 83880; 84100; 85025; 85610; 85730; 87040; 87077; 87086; 87186; 93005; 94760; 96360; 99285

== ENCOUNTER 2024-12-19 18:05 | Inpatient (IN) | payer OTHER, MEDICARE ==
--- NOTE | 2024-12-19 18:45 | ED ---
Recheck HPI - General Chief Complaint: Recheck/Abnormal Lab/Rx Stated Complaint: ABN LAB Time Seen by Provider: 12/19/24 18:07 Source: patient, family, RN notes reviewed Mode of arrival: EMS Limitations: no limitations - History of Present Illness Initial Comments: This is a 74-year-old male who presents to the emergency department for abnormal lab work. Patient currently lives at [facility] and has a history of renal failure. He had lab work done revealing that the renal failure had been worsening and he was sent here for further evaluation and management. Patient does report swelling in his lower extremities that has been an ongoing issue. Denies any chest pain or shortness of breath. - Related Data Home Medications Medication Instructions Recorded Confirmed Famotidine 20 mg PO BID 04/12/23 11/15/24 Acetaminophen Tab [Tylenol] 650 mg PO Q6H PRN 03/26/24 11/15/24 Imatinib Mesylate 300 mg PO HS 03/26/24 11/15/24 Levothyroxine Sodium 50 mcg PO DAILY@0500 03/26/24 11/15/24 Lidocaine 4% Patch 1 patch TRANSDERM DAILY 03/26/24 11/15/24 Magnesium Oxide [Magox 400] 400 mg PO DAILY 03/26/24 11/15/24 Tamsulosin [Flomax] 0.4 mg PO DAILY 03/26/24 11/15/24 Baclofen 5 mg PO TID@0500,1300,2100 04/26/24 11/15/24 Darbepoetin Bo [Aranesp] 60 mcg SQ SA@1100 04/26/24 11/15/24 Insulin Glargine,Hum.rec.anlog 40 units PO DAILY 05/21/24 11/15/24 [Lantus Solostar Pen] Sucralfate [Carafate] 1 gm PO QID@07,12,17,22 05/21/24 11/15/24 0.9 % Sodium Chloride [Sodium 10 ml IV BID 11/15/24 11/15/24 Chloride Flush] Ergocalciferol (Vitamin D2) 1,250 mcg PO MO 11/15/24 11/15/24 [Drisdol (50,000 Iu)] Insulin Aspart (Niacinamide) See Protocol SQ ACHS 11/15/24 11/15/24 [Fiasp 100 Unit/ml Flextouch Pen] Insulin Aspart Prot/Insuln Asp 8 unit SQ AC-TID@06,11,16 11/15/24 11/15/24 [NovoLOG MIX 70-30 Flexpen] L.acidoph,Paracasei, B.lactis 1 cap PO BID 11/15/24 11/15/24 [Probiotic] Losartan Potassium [Cozaar] 100 mg PO DAILY 11/15/24 11/15/24 Metoclopramide [Reglan] 10 mg PO TID@0600,1100,1600 11/15/24 11/15/24 allopurinoL [Zyloprim] 300 mg PO DAILY 11/15/24 11/15/24 amLODIPine [Norvasc] 10 mg PO DAILY 11/15/24 11/15/24 hydrALAZINE HCL [Apresoline] 50 mg PO TID@0500,1300,2100 11/15/24 11/15/24 Previous Rx's Medication Instructions Recorded Meropenem 2 gm IV Q12HR #14 each 11/20/24 Furosemide [Lasix] 40 mg PO DAILY #30 tab 11/22/24 Sodium Zirconium Cyclosilicate 10 gm PO DAILY packet 11/22/24 [Lokelma] Allergies Allergy/AdvReac Type Severity Reaction Status Date / Time TACOS Inhibitors Allergy Unknown Verified 11/15/24 17:37 codeine Allergy Unknown Verified 11/15/24 17:37 lisinopril Allergy Unknown Verified 11/15/24 17:37 oxycodone Allergy Unknown Verified 11/15/24 17:37 sulfamethoxazole Allergy Unknown Verified 11/15/24 17:37 [From Bactrim] trimethoprim [From Bactrim] Allergy Unknown Verified 11/15/24 17:37 TIDE LAUNDRY SOAP Allergy Severe Rash/Hives Uncoded 11/15/24 17:37 Review of Systems ROS Statement: Those systems with pertinent positive or pertinent negative responses have been documented in the HPI. ROS Other: All systems not noted in ROS Statement are negative. Past Medical History Past Medical History: Asthma, Cancer, Diabetes Mellitus, GERD/Reflux, Hyperlipidemia, Hypertension, Osteoarthritis (OA), Pneumonia, Renal Disease, Sleep Apnea/CPAP/BIPAP Additional Past Medical History / Comment(s): [place] leukemia recently started oral chemo 10/10/19, currently on Gleevic, IDDM type II, pt states he occasionally has hypoglycemia during middle of night, arthritis bilateral hands and occasionally in bilateral knees, gout R foot, WILLAM with Cpap use, chronic kidney disease stage 4 with baseline creatinine near 2 due to diabetic kidney disease and chronic interstitial nephritis, anemia History of Any Multi-Drug Resistant Organisms: ESBL Date of last positivie culture/infection: 03/28/24 MDRO Source:: urine Past Surgical History: Back Surgery, Cholecystectomy, Hernia Repair Additional Past Surgical History / Comment(s): 09/2019 bone marrow biopsy, incisional hernia, colonoscopy with benign polyps. Right cataract removal with IOL implant. PARATHYROIDECTOMY - July 2023 Past Anesthesia/Blood Transfusion Reactions: No Reported Reaction Past Psychological History: No Psychological Hx Reported Additional Psychological History / Comment(s): Pt resides with his spouse, except pt is in rehab at [facility] for recent UTI, He has a CPAP machine. Smoking Status: Never smoker Past Alcohol Use History: None Reported Additional Past Alcohol Use History / Comment(s): The patient is a lifelong nonsmoker, does not drink Past Drug Use History: None Reported - Past Family History Father Family Medical History: Diabetes Mellitus Additional Family Medical History / Comment(s): Father is 97 yrs old. Mother Family Medical History: Dementia Additional Family Medical History / Comment(s): Mother of dementia at the age of 85yrs. General Exam Limitations: no limitations General appearance: alert, in no apparent distress Head exam: Present: atraumatic, normocephalic, normal inspection Respiratory exam: Present: normal lung sounds bilaterally. Absent: respiratory distress, wheezes, rales, rhonchi, stridor Cardiovascular Exam: Present: regular rate, normal rhythm Extremities exam: Present: other (Bilateral pitting edema, right worse than left. Superficial abrasion to the distal aspect of the right lower extremity. 2+ DP and PT pulses bilaterally) Neurological exam: Present: alert, oriented X3, CN II-XII intact Psychiatric exam: Present: normal affect, normal mood Course Vital Signs 12/19/24 12/19/24 18:33 22:09 Temperature 98.9 F Pulse Rate 80 87 Respiratory 18 20 Rate Blood Pressure 130/70 150/67 O2 Sat by Pulse 96 97 Oximetry Medical Decision Making - Medical Decision Making This is a 74-year-old male who presents to the emergency department for abnormal lab work. Was pt. sent in by a medical professional or institution? @ -No Did you speak to anyone other than the patient for history? @ -No Did you review nursing and triage notes? @ -Yes, and I agree, it is accurate with regards to the patient's symptoms. Were old charts reviewed? @ -No Differential Diagnosis? @ -Infection, electrolyte abnormality, medication, this is not meant to be an all-inclusive list. EKG interpreted by me (3pts min.)? @ -EKG interpreted by me demonstrating the following: Sinus rhythm. Ventricular rate 76 BPM, CO interval 222 ms, QRS duration 122 ms, QTc 436 ms. X-rays interpreted by me (1pt min.)? @ -Chest x-ray obtained. My interpretation identifies bibasilar infiltrates. CT interpreted by me (1pt min.)? @ -Not obtained U/S interpreted by me (1pt. min.)? @ -Not obtained What testing was considered but not performed? (CT, X-rays, U/S, labs)? Why? @ -None What meds were considered but not given? Why? @ -None Did you discuss the management of the patient with other professionals? @ -Yes, Dr. Castellano, who accepts the patient for admission. Did you reconcile home meds? @ -No Was smoking cessation discussed for >3mins.? @ -No Was critical care preformed (if so, how long)? @ -No Were there social determinants of health that impacted care today? How? (Homelessness, low income, unemployed, alcoholism, drug addiction, transportation, low edu. Level, literacy, decrease access to med. care, skilled nursing, rehab)? @ -No Was there de-escalation of care discussed even if they declined? (Discuss DNR or withdrawal of care, Hospice)? @ -No What co-morbidities impacted this encounter? (DM, HTN, Smoking, COPD, CAD, Cancer, CVA, Hep., AIDS, mental health diagnosis, sleep apnea, morbid obesity)? @ -DM, HLD, HTN, renal disease Was patient admitted / discharged? @ -Admitted. Lab work demonstrates poor renal function with a BUN of 124, creatinine of 3.23, and eGFR of 18. Hemoglobin of 9.7 is stable when compared with prior values. BNP only 279. Chest x-ray demonstrates bibasilar acute infiltrates and/or atelectasis and a suspected small right pleural effusion. He denies any chest pain or shortness of breath. Renal function is worse compared with patient's baseline and he was admitted to medicine for worsening renal function. We did attempt to obtain a urine from the patient, however this was still pending at the time of admission. Bladder scan performed demonstrating 11-30 cc. Consult placed for nephrology. Case discussed with ED attending Dr. Malcolm. Undiagnosed new problem with uncertain prognosis? @ -None Drug Therapy requiring intensive monitoring for toxicity (Heparin, Nitro, Insulin, Cardizem)? @ -None Were any procedures done? @ -None Diagnosis/symptom? @ -WENDI Acute, or Chronic, or Acute on Chronic? @ -Acute Uncomplicated (without systemic symptoms) or Complicated (systemic symptoms)? @ -Uncomplicated Side effects of treatment? @ -None Exacerbation, Progression, or Severe Exacerbation] @ -Not applicable Poses a threat to life or bodily function? @ -Yes, if his renal function worsens, it can become life-threatening - Lab Data Result diagrams: 12/19/24 19:07 12/19/24 19:07 Lab Results 12/19/24 12/19/24 12/19/24 Range/Units 19:07 19:07 19:07 WBC 8.6 (3.8-10.6) k/uL RBC 3.02 L (4.30-5.90) m/uL Hgb 9.7 L (13.0-17.5) gm/dL Hct 31.3 L (39.0-53.0) % MCV 103.5 H (80.0-100.0) fL MCH 32.0 (25.0-35.0) pg MCHC 30.9 L (31.0-37.0) g/dL RDW 14.8 (11.5-15.5) % Plt Count 161 (150-450) k/uL MPV 9.3 Neutrophils % 58 % Lymphocytes % 21 % Monocytes % 9 % Eosinophils % 10 % Basophils % 0 % Neutrophils # 5.0 (1.3-7.7) k/uL Lymphocytes # 1.8 (1.0-4.8) k/uL Monocytes # 0.8 (0-1.0) k/uL Eosinophils # 0.9 H (0-0.7) k/uL Basophils # 0.0 (0-0.2) k/uL Hypochromasia Slight Macrocytosis Slight PT 10.6 (10.0-12.5) sec INR 0.9 (<1.2) APTT 27.5 (22.0-30.0) sec Sodium 138 (137-145) mmol/L Potassium 4.7 (3.5-5.1) mmol/L Chloride 100 (98-107) mmol/L Carbon Dioxide 32 H (22-30) mmol/L Anion Gap 6 mmol/L BUN 124 H* (9-20) mg/dL Creatinine 3.23 H (0.66-1.25) mg/dL Est GFR (CKD-EPI)AfAm 20 (>60 ml/min/1.73 sqM) Est GFR (CKD-EPI)NonAf 18 (>60 ml/min/1.73 sqM) Glucose 224 H (74-99) mg/dL Calcium 8.6 (8.4-10.2) mg/dL Phosphorus 4.1 (2.5-4.5) mg/dL Magnesium 2.3 (1.6-2.3) mg/dL Total Bilirubin 0.4 (0.2-1.3) mg/dL AST 28 (17-59) U/L ALT 19 (4-49) U/L Alkaline Phosphatase 104 (38-126) U/L NT-Pro-B Natriuret Pep 279 pg/mL Total Protein 6.7 (6.3-8.2) g/dL Albumin 3.1 L (3.5-5.0) g/dL - Radiology Data Radiology results: report reviewed, image reviewed Disposition Clinical Impression: Acute kidney failure Disposition: ADMITTED IP TO THIS HOSP
[2024-12-19 19:16] LABS: Basophils % (A) 0 %; Eosinophils # (A) 0.9 k/uL (0-0.7); Eosinophils % (A) 10 %; HCT 31.3 % (39.0-53.0); HGB 9.7 gm/dL (13.0-17.5); Hypochromasia Slight; Lymphocytes # (A) 1.8 k/uL (1.0-4.8); Lymphocytes % (A) 21 %; MCHC 30.9 g/dL (31.0-37.0); MCV 103.5 fL (80.0-100.0); Macrocytosis Slight; Mean Platelet Volume 9.3; Monocytes # (A) 0.8 k/uL (0-1.0); Monocytes % (A) 9 %; Neutrophils % (A) 58 %; Platelet Count 161 k/uL (150-450); RBC 3.02 m/uL (4.30-5.90); RDW 14.8 % (11.5-15.5); WBC 8.6 k/uL (3.8-10.6)
--- NOTE | 2024-12-19 19:26 | XR ---
EXAMINATION TYPE: XR chest 2V DATE OF EXAM: 12/19/2024 7:17 PM COMPARISON: Chest x-ray November 15, 2024 CLINICAL INDICATION: Male, 74 years old with history of Weakness, TECHNIQUE: Frontal and lateral views of the chest are obtained. FINDINGS: Suboptimal due to large body habitus. Persistent low lung volumes along with cardiomegaly a nd ectatic thoracic aorta. Patchy bibasilar opacity on current study. Osseous structures are intact. IMPRESSION: Suboptimal study. Low lung volumes and cardiomegaly redemonstrated. There are bibasilar a cute infiltrates and/or atelectasis and suspected small right pleural effusion noted. [facility], , 12/19/2024 7:24 PM
[2024-12-19 19:27] LABS: INR 0.9 (<1.2); Partial Thromboplastin Time 27.5 sec (22.0-30.0); Prothrombin Time 10.6 sec (10.0-12.5)
[2024-12-19 19:28] LABS: ALT 19 U/L (4-49); AST 28 U/L (17-59); African American GFR (CKD) 20 (>60 ml/min/1.73 sqM); Albumin 3.1 g/dL (3.5-5.0); Alkaline Phosphatase 104 U/L (38-126); Anion Gap 6 mmol/L; Calcium 8.6 mg/dL (8.4-10.2); Carbon Dioxide 32 mmol/L (22-30); Chloride 100 mmol/L (98-107); Glucose 224 mg/dL (74-99); Magnesium 2.3 mg/dL (1.6-2.3); Non-African American GFR(CKD) 18 (>60 ml/min/1.73 sqM); Phosphorus 4.1 mg/dL (2.5-4.5); Potassium 4.7 mmol/L (3.5-5.1); Sodium 138 mmol/L (137-145); Total Bilirubin 0.4 mg/dL (0.2-1.3); Total Protein 6.7 g/dL (6.3-8.2)
[2024-12-19 19:37] LABS: NT-Pro-B-Type Natriuretic Pept 279 pg/mL
[2024-12-19 19:50] LABS: Blood Urea Nitrogen 124 mg/dL (9-20)
[2024-12-19] MEDS ORDERED: NALOXONE 0.4 MG/ML 1 ML VIAL IV PRN (20:57)
[2024-12-19 23:46] LABS: Glucose,Whole Blood 172 mg/dL (70-110)
[2024-12-19 23:46] LABS: Appearance,Urine Cloudy (Clear); Bacteria,Urine Occasional /hpf; Bilirubin,Urine Negative (Negative); Blood,Urine Negative (Negative); Color,Urine Colorless; Glucose,Urine (UA) Negative (Negative); Ketones,Urine Negative (Negative); Leukocyte Esterase,Urine Large (Negative); Mucus,Urine Rare /hpf; Nitrite,Urine Negative (Negative); PH, Urine 5.5 (5.0-8.0); Protein,Urine Negative (Negative); RBC,Urine 8 /hpf (0-5); Squamous Epithelial Cell,Urine <1 /hpf (0-4); Urobilinogen,Urine <2.0 mg/dL (<2.0); WBC,Urine >182 /hpf (0-5)
[2024-12-20 07:19] LABS: Glucose,Whole Blood 144 mg/dL (70-110)
[2024-12-20] MEDS: DEXTROSE 5%-0.45% NACL 1,000 ML IV SCH (09:34)
[2024-12-20] MEDS ORDERED: ONDANSETRON ODT 4 MG TAB PO PRN (10:51)
[2024-12-20] MEDS ORDERED: ACETAMINOPHEN TAB 325 MG TAB PO PRN (10:51)
--- NOTE | 2024-12-20 11:30 | P.NPCON ---
History of Present Illness - Reason for Consult acute renal failure, chronic renal failure - History of Present Illness Reason for consultation: Acute kidney injury on chronic kidney disease History of present illness: Patient is a 74-year-old male seen in renal consultation for acute kidney injury on chronic kidney disease. Patient has chronic kidney disease stage IIIb with baseline creatinine near 2 secondary to diabetic kidney disease and cardiorenal syndrome. Patient was receiving oral Lasix 40 mg once daily outpatient and was also on metolazone 2.5 mg once daily due to worsening edema. Repeat blood work showed creatinine above 3 and he was subsequently advised to go to the hospital. Creatinine admission was 3.23 with BUN of 124. Patient does have edema in the lower extremities. He is nonoliguric. He was started on IV fluids this morning. Patient has longstanding history of diabetes. Denies history of coronary artery disease. Denies use of nonsteroidals. No gross hematuria or dysuria. Patient states he did have vomiting for 4 to 5 days but now resolved. Hemodynamically stable. He is on room air. Chest x-ray showed cardiomegaly with potential small right pleural effusion. Vital signs are stable. General: No acute distress. HEENT: Head exam is unremarkable. On room air. LUNGS: No audible rhonchi or wheezes. HEART: Rate and Rhythm are regular. ABDOMEN: Obese, nontender. EXTREMITITES: 2+ edema right lower extremity and 1+ edema left lower extremity. Past Medical History Past Medical History: Asthma, Cancer, Diabetes Mellitus, GERD/Reflux, Hyperlipidemia, Hypertension, Osteoarthritis (OA), Pneumonia, Renal Disease, Sleep Apnea/CPAP/BIPAP Additional Past Medical History / Comment(s): [place] leukemia recently started oral chemo 10/10/19, currently on Gleevic, IDDM type II, pt states he occasionally has hypoglycemia during middle of night, arthritis bilateral hands and occasionally in bilateral knees, gout R foot, WILLAM with Cpap use, chronic kidney disease stage 4 with baseline creatinine near 2 due to diabetic kidney disease and chronic interstitial nephritis, anemia History of Any Multi-Drug Resistant Organisms: ESBL Date of last positivie culture/infection: 11/15/24 MDRO Source:: urine Past Surgical History: Back Surgery, Cholecystectomy, Hernia Repair Additional Past Surgical History / Comment(s): 09/2019 bone marrow biopsy, incisional hernia, colonoscopy with benign polyps. Right cataract removal with IOL implant. PARATHYROIDECTOMY - July 2023 Past Anesthesia/Blood Transfusion Reactions: No Reported Reaction Past Psychological History: No Psychological Hx Reported Additional Psychological History / Comment(s): Pt resides with his spouse, except pt is in rehab at [facility] for recent UTI, He has a CPAP machine. Smoking Status: Never smoker Past Alcohol Use History: None Reported Additional Past Alcohol Use History / Comment(s): The patient is a lifelong nonsmoker, does not drink Past Drug Use History: None Reported - Past Family History Father Family Medical History: Diabetes Mellitus Additional Family Medical History / Comment(s): Father is 97 yrs old. Mother Family Medical History: Dementia Additional Family Medical History / Comment(s): Mother of dementia at the age of 85yrs. Medications and Allergies Home Medications Medication Instructions Recorded Confirmed Type Famotidine 20 mg PO BID 04/12/23 12/20/24 History Acetaminophen Tab [Tylenol] 650 mg PO Q6H PRN 03/26/24 12/20/24 History Imatinib Mesylate 300 mg PO HS 03/26/24 12/20/24 History Levothyroxine Sodium 50 mcg PO DAILY@0600 03/26/24 12/20/24 History Lidocaine 4% Patch 1 patch TRANSDERM DAILY 03/26/24 12/20/24 History Magnesium Oxide [Magox 400] 400 mg PO DAILY 03/26/24 12/20/24 History Tamsulosin [Flomax] 0.4 mg PO DAILY 03/26/24 12/20/24 History Baclofen 5 mg PO TID@0500,1300,2100 04/26/24 12/20/24 History Darbepoetin Bo [Aranesp] 60 mcg SQ GUO@1100 04/26/24 12/20/24 History Insulin Glargine,Hum.rec.anlog 10 units PO DAILY 05/21/24 12/20/24 History [Lantus Solostar Pen] Ergocalciferol (Vitamin D2) 1,250 mcg PO MO 11/15/24 12/20/24 History [Drisdol (50,000 Iu)] Insulin Aspart (Niacinamide) See Protocol SQ ACHS 11/15/24 12/20/24 History [Fiasp 100 Unit/ml Flextouch Pen] L.acidoph,Paracasei, B.lactis 1 cap PO BID 11/15/24 12/20/24 History [Probiotic] Losartan Potassium [Cozaar] 100 mg PO DAILY 11/15/24 12/20/24 History Metoclopramide [Reglan] 10 mg PO TID@0600,1100,1600 11/15/24 12/20/24 History allopurinoL [Zyloprim] 300 mg PO DAILY 11/15/24 12/20/24 History amLODIPine [Norvasc] 10 mg PO DAILY 11/15/24 12/20/24 History hydrALAZINE HCL [Apresoline] 50 mg PO TID@0500,1300,2100 11/15/24 12/20/24 History Sodium Zirconium Cyclosilicate 10 gm PO DAILY packet 11/22/24 12/20/24 Rx [Lokelma] Furosemide [Lasix] 40 mg PO BID@0800,1600 12/20/24 12/20/24 History Ondansetron [Zofran] 4 mg PO Q6H PRN 12/20/24 12/20/24 History Sucralfate [Carafate] 1 gm PO ACHS 12/20/24 12/20/24 History metOLazone [Zaroxolyn] 2.5 mg PO DAILY@0730 12/20/24 12/20/24 History Allergies Allergy/AdvReac Type Severity Reaction Status Date / Time TACOS Inhibitors Allergy Unknown Verified 12/20/24 09:56 codeine Allergy Unknown Verified 12/20/24 09:56 lisinopril Allergy Unknown Verified 12/20/24 09:56 oxycodone Allergy Unknown Verified 12/20/24 09:56 sulfamethoxazole Allergy Unknown Verified 12/20/24 09:56 [From Bactrim] trimethoprim [From Bactrim] Allergy Unknown Verified 12/20/24 09:56 TIDE LAUNDRY SOAP Allergy Severe Rash/Hives Uncoded 11/15/24 17:37 Physical Exam Vitals: Vital Signs Temp Pulse Pulse Resp BP BP Pulse Ox 12/20/24 07:14 97.4 F L 73 18 133/68 96 12/20/24 01:24 97.3 F L 76 17 141/58 96 12/19/24 23:16 97.3 F L 82 17 156/68 94 L 12/19/24 22:09 87 20 150/67 97 12/19/24 18:33 98.9 F 80 18 130/70 96 Intake and Output 12/19/24 12/20/24 12/20/24 22:59 06:59 14:59 Output Total 950 Balance -950 Output: Urine 950 Other: Weight 136.078 kg 136.078 kg Results - Lab Results Most recent lab results Calcium 8.6 mg/dL (8.4-10.2) 12/19/24 19:07 Phosphorus 4.1 mg/dL (2.5-4.5) 12/19/24 19:07 Magnesium 2.3 mg/dL (1.6-2.3) 12/19/24 19:07 12/19/24 19:07 12/19/24 19:07 Assessment and Plan Plan: Assessment: 1. Acute kidney injury secondary to ATN secondary to cardiorenal syndrome. No proteinuria on UA. Creatinine 3.23 on admission yesterday. 2. Chronic kidney disease stage IIIb/4 with baseline creatinine near 2 secondary to cardiorenal syndrome and diabetic kidney disease. 3. Volume overload. 4. Anemia of chronic kidney disease. Rule out iron deficiency. 5. Acute on chronic diastolic CHF. 6. Hypertension with chronic kidney disease. 7. Diabetes mellitus. Plan: Hep-Lock IV fluids. Lasix 40 mg IV once today. Hold losartan. Follow-up kidney ultrasound. Avoid nephrotoxins. Check iron studies. Continue to monitor renal function and urine output. Thank you for the consultation. I will continue to follow the patient with you during his hospital stay.
--- NOTE | 2024-12-20 11:32 | US ---
EXAMINATION TYPE: US kidneys/renal and bladder DATE OF EXAM: 12/20/2024 COMPARISON: US 11/16/2024 CLINICAL INDICATION: Male, 74 years old with history of acute kidney injury; WENDI TECHNIQUE: Grayscale imaging of the bilateral kidneys and urinary bladder: FINDINGS: EXAM MEASUREMENTS: Right Kidney: 10.5 x 5.1 x 4.4 cm Left Kidney: 10.0 x 5.3 x 5.1 cm Severely, morbidly obese pt, difficult to scan Right Kidney: No evidence of hydro, possible 7mm echogenic foci lower pole Left Kidney: No evidence of hydro, lower pole gassed out Bladder: Pt has cath in place Similar findings when compared to prior IMPRESSION: 1. Echogenic focus within the inferior pole left kidney may be a nonobstructing renal stone. [facility], , 12/20/2024 11:30 AM
[2024-12-20] MEDS: FUROSEMIDE 10 MG/ML 4 ML VIAL IV STA (12:03)
[2024-12-20] MEDS: SUCRALFATE 1 GM TAB PO SCH (12:04)
[2024-12-20 12:15] LABS: Glucose,Whole Blood 148 mg/dL (70-110)
[2024-12-20] MEDS: INSULIN ASPART SQ SCH (12:50)
[2024-12-20] MEDS: [UNRECOGNIZED DRUG - OTHER] SQ SCH (12:50)
[2024-12-20 17:21] LABS: Glucose,Whole Blood 213 mg/dL (70-110)
[2024-12-20] MEDS ORDERED: DEXTROSE 50% SYRINGE 50 ML IVP PRN ×2 (17:39)
[2024-12-20] MEDS: INSULIN LISPRO (HumaLOG) 100 UNIT/ML 10 mL VL SQ SCH (17:48)
--- NOTE | 2024-12-20 19:53 | HP ---
HISTORY AND PHYSICAL CHIEF COMPLAINT: Renal failure. HISTORY OF PRESENT ILLNESS: This is another admission for this 74-year-old white male. 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 He is also morbidly obese with diabetes and has a history of CML as well. A year or so ago, he fractured his right femur, which has now healed and he has been trying to increase his activity and rehab in the assisted. Lately his GFR has been decreasing and he is brought in for further evaluation and management of his nephropathy. In the last several days, he had some nausea, and vomiting, but this has gone and probably was related to norovirus and not his renal failure. REVIEW OF SYSTEMS: He denies any fever, chills, chest pain, abdominal pain, etc. Past medical history, family history, personal and social histories are all otherwise unremarkable and unchanged from his recent admission. PHYSICAL EXAMINATION: GENERAL: He is awake and alert. SKIN: Slightly dry. CHEST: Clear. CARDIAC: Normal. ABDOMEN: Soft and nontender without masses or visceromegaly. EXTREMITIES: Unremarkable. IMPRESSION: 1. Acute on chronic renal failure, stage IV. 2. Insulin-dependent diabetes. 3. Morbid obesity. 4. History of congestive heart failure. 5. Fracture of the right femur. PLAN: 1. Bed rest. 2. IV fluids. 3. Consult with Nephrology. 4. Urinalysis and culture. 5. Garcia catheter drainage. 6. PT and OT. 7. Ultrasound of the kidneys. 8. Consult Nephrology. MMODL / IJN: [id number] /
[2024-12-20 20:07] LABS: Glucose,Whole Blood 181 mg/dL (70-110)
[2024-12-20] MEDS: FAMOTIDINE 20 MG TAB PO SCH (20:58)
[2024-12-20] MEDS: IMATINIB MESYLATE 100 MG PO SCH (20:59)
[2024-12-20 21:50] LABS: % Iron Saturation 25.56 (15.00-50.00); Ferritin 71.8 ng/mL (22.0-322.0)
[2024-12-21 07:13] LABS: Glucose,Whole Blood 131 mg/dL (70-110)
[2024-12-21] MEDS: amLODIPine 10 MG TAB PO SCH (08:47)
[2024-12-21] MEDS: MAGNESIUM OXIDE 400 MG TAB PO SCH (08:47)
[2024-12-21] MEDS: LEVOTHYROXINE 50 MCG TAB PO SCH (08:47)
[2024-12-21] MEDS: SODIUM ZIRCONIUM CYCLOSILICATE 10 GM PACKET PO SCH (08:47)
[2024-12-21] MEDS: INSULIN GLARGINE (LANTUS) 100 UNIT/ML SYR SQ SCH (08:47)
[2024-12-21 08:48] LABS: BUN/Creat Ratio 32.83 Ratio (12.00-20.00); Blood Urea Nitrogen 98.5 mg/dL (9.0-27.0); Calcium 8.7 mg/dL (8.7-10.3); Carbon Dioxide 29.9 mmol/L (21.6-31.8); Chloride 105 mmol/L (96-109); Glucose 137 mg/dL (70-110); Magnesium 2.2 mg/dL (1.5-2.4); Potassium 4.6 mmol/L (3.5-5.5); Sodium 143 mmol/L (135-145)
[2024-12-21] MEDS ORDERED: LOSARTAN 50 MG TAB PO SCH (09:00)
--- NOTE | 2024-12-21 11:07 | P.PN ---
Subjective Patient is seen in follow-up for acute kidney injury on chronic kidney disease. Renal function better. Status post IV Lasix yesterday. Nonoliguric. Denies chest pain or shortness of breath. Vital signs are stable. General: No acute distress. HEENT: Head exam is unremarkable. LUNGS: No audible rhonchi or wheezes. HEART: Rate and Rhythm are regular. ABDOMEN: Obese, nontender. EXTREMITITES: 2+ edema. Objective - Vital Signs Vital signs: Vital Signs Temp 98.0 F 12/21/24 07:14 Pulse 82 12/21/24 07:14 Resp 16 12/21/24 07:14 BP 131/61 12/21/24 07:14 Pulse Ox 94 L 12/21/24 07:14 FiO2 Intake & Output 12/20/24 12/21/24 12/21/24 18:59 06:59 18:59 Intake Total 80 540 Output Total 1999 2125 Balance -1920 -1586 Intake: Intake, IV Titration 80 Amount Dextrose 5%-0.45% NaCl 1, 80 000 ml @ 80 mls/hr IV . [id number] [facility] Rx#:[id number] Oral 540 Output: Urine 1999 2124 Stool 1 Other: Voiding Method External Catheter # Bowel Movements 1 - Labs CBC & Chem 7: 12/19/24 19:07 12/21/24 04:18 Labs: Abnormal Lab Results - Last 24 Hours (Table) 12/19/24 12/20/24 12/20/24 Range/Units 19:07 12:13 17:19 BUN (9.0-27.0) mg/dL Creatinine (0.6-1.5) mg/dL Est GFR (CKD-EPI) (>=60) BUN/Creatinine Ratio (12.00-20.00) Ratio Glucose (70-110) mg/dL POC Glucose (mg/dL) 148 H 213 H (70-110) mg/dL Iron 57 L (65-175) UG/DL TIBC 223 L (228-460) UG/DL Transferrin 159.0 L (204.0-354.0) mg/dL 12/20/24 12/21/24 12/21/24 Range/Units 20:06 04:18 07:12 BUN 98.5 H (9.0-27.0) mg/dL Creatinine 3.0 H (0.6-1.5) mg/dL Est GFR (CKD-EPI) 21 L (>=60) BUN/Creatinine Ratio 32.83 H (12.00-20.00) Ratio Glucose 137 H (70-110) mg/dL POC Glucose (mg/dL) 181 H 131 H (70-110) mg/dL Iron (65-175) UG/DL TIBC (228-460) UG/DL Transferrin (204.0-354.0) mg/dL Assessment and Plan Plan: Assessment: 1. Acute kidney injury secondary to ATN secondary to cardiorenal syndrome. No proteinuria on UA. Creatinine 3.23 on admission and is 3.0 today. No hydronephrosis noted on kidney ultrasound. 2. Chronic kidney disease stage IIIb/4 with baseline creatinine near 2 secondary to cardiorenal syndrome and diabetic kidney disease. 3. Volume overload. Improving with diuresis. 4. Anemia of chronic kidney disease. Iron replete. 5. Acute on chronic diastolic CHF. 6. Hypertension with chronic kidney disease. Stable. 7. Diabetes mellitus. Plan: Add IV Lasix 40 mg once daily. Continue to hold losartan. Avoid nephrotoxins. Add Aranesp. Continue to monitor renal function and urine output.
[2024-12-21 12:16] LABS: Glucose,Whole Blood 137 mg/dL (70-110)
[2024-12-21] MEDS: FUROSEMIDE 10 MG/ML 4 ML VIAL IV SCH (12:54)
[2024-12-21] MEDS: DARBEPOETIN ALFA 40 MCG/0.4 ML SYRINGE SQ SCH (12:54)
[2024-12-21 17:21] LABS: Glucose,Whole Blood 154 mg/dL (70-110)
--- NOTE | 2024-12-21 20:15 | P.CONS ---
History of Present Illness - Reason for Consult Consult date: 12/21/24 CML Requesting physician: Dwayne Castellano - Chief Complaint abdnormal labs - History of Present Illness Mr. Ascencio is a very pleasant patient of Dr. Gil, well-known to our practice, treated with Gleevec for CML diagnosed late 2018. He has had stable disease with negative BCR/ABL testing since that time, tolerates gleevec well. Patient has had a complicated medical course over the last cpl years. 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 He required significant rehabilitation with some residual weakness. At the end of 2022 he had back surgery for severe, painful arthritis with prolonged hospitalization and rehabilitation process. He has been on and off Gleevec during this time. He was then admitted in March 2024 for a right femur fracture and has been in SNF since, He has continued on Gleevac, and BCR ABL in 06/2024 was negative Patient presented to the emergency room for abnormal kidney function which was tested at his nursing facility. Upon admit creatinine noted at 3.23, GFR 18, BUN 124. Patient does have a known history of CKD. Today kidney function showed improvement with creatinine 3.0, GFR 21, BUN 98.5. WBC 8.5, hemoglobin 9.7, platelets 1 61,000. Iron saturation 25.5%, ferritin 71.8. LFTs and krysten irubin WNL. Nephrology has been consulted. Ultrasound kidneys renal and bladder showing echogenic focus within the inferior pole of left kidney which may be a nonobstructing renal stone but is negative for bilateral hydronephrosis. EPO has been started. Patient is afebrile. UA suspicious for possible UTI. Review of Systems 10 point ROS is negative except as stated in the HPI Past Medical History Past Medical History: Asthma, Cancer, Diabetes Mellitus, GERD/Reflux, Hyperlipidemia, Hypertension, Osteoarthritis (OA), Pneumonia, Renal Disease, Sleep Apnea/CPAP/BIPAP Additional Past Medical History / Comment(s): [place] leukemia recently started oral chemo 10/10/19, currently on Gleevic, IDDM type II, pt states he occasionally has hypoglycemia during middle of night, arthritis bilateral hands and occasionally in bilateral knees, gout R foot, WILLAM with Cpap use, chronic kidney disease stage 4 with baseline creatinine near 2 due to diabetic kidney disease and chronic interstitial nephritis, anemia History of Any Multi-Drug Resistant Organisms: ESBL Year Discovered:: 11/15/24 MDRO Source:: urine Past Surgical History: Back Surgery, Cholecystectomy, Hernia Repair Additional Past Surgical History / Comment(s): 09/2019 bone marrow biopsy, incisional hernia, colonoscopy with benign polyps. Right cataract removal with IOL implant. PARATHYROIDECTOMY - July 2023 Past Anesthesia/Blood Transfusion Reactions: No Reported Reaction Past Psychological History: No Psychological Hx Reported Additional Psychological History / Comment(s): Pt resides with his spouse, except pt is in rehab at [facility] for recent UTI, He has a CPAP machine. Smoking Status: Never smoker Past Alcohol Use History: None Reported Additional Past Alcohol Use History / Comment(s): The patient is a lifelong nonsmoker, does not drink Past Drug Use History: None Reported - Past Family History Father Family Medical History: Diabetes Mellitus Additional Family Medical History / Comment(s): Father is 97 yrs old. Mother Family Medical History: Dementia Additional Family Medical History / Comment(s): Mother of dementia at the age of 85yrs. Medications and Allergies Home Medications Medication Instructions Recorded Confirmed Type Famotidine 20 mg PO BID 04/12/23 12/20/24 History Acetaminophen Tab [Tylenol] 650 mg PO Q6H PRN 03/26/24 12/20/24 History Imatinib Mesylate 300 mg PO HS 03/26/24 12/20/24 History Levothyroxine Sodium 50 mcg PO DAILY@0600 03/26/24 12/20/24 History Lidocaine 4% Patch 1 patch TRANSDERM DAILY 03/26/24 12/20/24 History Magnesium Oxide [Magox 400] 400 mg PO DAILY 03/26/24 12/20/24 History Tamsulosin [Flomax] 0.4 mg PO DAILY 03/26/24 12/20/24 History Baclofen 5 mg PO TID@0500,1300,2100 04/26/24 12/20/24 History Darbepoetin Bo [Aranesp] 60 mcg SQ GUO@1100 04/26/24 12/20/24 History Insulin Glargine,Hum.rec.anlog 10 units PO DAILY 05/21/24 12/20/24 History [Lantus Solostar Pen] Ergocalciferol (Vitamin D2) 1,250 mcg PO MO 11/15/24 12/20/24 History [Drisdol (50,000 Iu)] Insulin Aspart (Niacinamide) See Protocol SQ [facility] 11/15/24 12/20/24 History [Fiasp 100 Unit/ml Flextouch Pen] L.acidoph,Paracasei, B.lactis 1 cap PO BID 11/15/24 12/20/24 History [Probiotic] Losartan Potassium [Cozaar] 100 mg PO DAILY 11/15/24 12/20/24 History Metoclopramide [Reglan] 10 mg PO TID@0600,1100,1600 11/15/24 12/20/24 History allopurinoL [Zyloprim] 300 mg PO DAILY 11/15/24 12/20/24 History amLODIPine [Norvasc] 10 mg PO DAILY 11/15/24 12/20/24 History hydrALAZINE HCL [Apresoline] 50 mg PO TID@0500,1300,2100 11/15/24 12/20/24 History Sodium Zirconium Cyclosilicate 10 gm PO DAILY packet 11/22/24 12/20/24 Rx [Lokelma] Furosemide [Lasix] 40 mg PO BID@0800,1600 12/20/24 12/20/24 History Ondansetron [Zofran] 4 mg PO Q6H PRN 12/20/24 12/20/24 History Sucralfate [Carafate] 1 gm PO ACHS 12/20/24 12/20/24 History metOLazone [Zaroxolyn] 2.5 mg PO DAILY@0730 12/20/24 12/20/24 History Allergies Allergy/AdvReac Type Severity Reaction Status Date / Time TACOS Inhibitors Allergy Unknown Verified 12/20/24 09:56 codeine Allergy Unknown Verified 12/20/24 09:56 lisinopril Allergy Unknown Verified 12/20/24 09:56 oxycodone Allergy Unknown Verified 12/20/24 09:56 sulfamethoxazole Allergy Unknown Verified 12/20/24 09:56 [From Bactrim] trimethoprim [From Bactrim] Allergy Unknown Verified 12/20/24 09:56 TIDE LAUNDRY SOAP Allergy Severe Rash/Hives Uncoded 11/15/24 17:37 Physical Exam Vitals: Vital Signs Temp Pulse Resp BP Pulse Ox 12/21/24 07:14 98.0 F 82 16 131/61 94 L 12/21/24 01:44 97.6 F 81 12 154/60 94 L 12/20/24 19:41 97.4 F L 81 12 143/62 96 12/20/24 12:19 97.5 F L 74 18 146/66 96 Intake and Output 12/20/24 12/21/24 12/21/24 22:59 06:59 14:59 Intake Total 80 540 Output Total 1351 1325 Balance -1271 -785 Intake: Intake, IV Titration 80 Amount Dextrose 5%-0.45% NaCl 1, 80 000 ml @ 80 mls/hr IV . [id number] [facility] Rx#:[id number] Oral 540 Output: Urine 1350 1325 Stool 1 Other: Voiding Method External Catheter # Bowel Movements 1 - Constitutional General appearance: no acute distress, obese - EENT Eyes: anicteric sclerae, EOMI ENT: hearing grossly normal - Respiratory breathing is even and unlabored - Cardiovascular skin warm and dry - Gastrointestinal General gastrointestinal: soft, no tenderness - Integumentary Integumentary: no cyanotic, no jaundiced - Musculoskeletal Musculoskeletal: generalized weakness - Psychiatric Psychiatric: A&O x's 3 Results CBC & Chem 7: 12/19/24 19:07 12/21/24 04:18 Labs: Abnormal Lab Results - Last 24 Hours (Table) 12/19/24 12/20/24 12/20/24 Range/Units 19:07 12:13 17:19 BUN (9.0-27.0) mg/dL Creatinine (0.6-1.5) mg/dL Est GFR (CKD-EPI) (>=60) BUN/Creatinine Ratio (12.00-20.00) Ratio Glucose (70-110) mg/dL POC Glucose (mg/dL) 148 H 213 H (70-110) mg/dL Iron 57 L (65-175) UG/DL TIBC 223 L (228-460) UG/DL Transferrin 159.0 L (204.0-354.0) mg/dL 12/20/24 12/21/24 12/21/24 Range/Units 20:06 04:18 07:12 BUN 98.5 H (9.0-27.0) mg/dL Creatinine 3.0 H (0.6-1.5) mg/dL Est GFR (CKD-EPI) 21 L (>=60) BUN/Creatinine Ratio 32.83 H (12.00-20.00) Ratio Glucose 137 H (70-110) mg/dL POC Glucose (mg/dL) 181 H 131 H (70-110) mg/dL Iron (65-175) UG/DL TIBC (228-460) UG/DL Transferrin (204.0-354.0) mg/dL Assessment and Plan (1) Acute renal failure Current Visit: Yes Status: Acute Priority: High Code(s): N17.9 - ACUTE KIDNEY FAILURE, UNSPECIFIED SNOMED Code(s): 69822490 (2) Chronic myelocytic leukemia Current Visit: No Status: Chronic Priority: Medium Code(s): C92.10 - CHRONIC MYELOID LEUK, BCR/ABL-POSITIVE, NOT ACHIEVE REMIS SNOMED Code(s): 34631031 Plan: Acute on chronic kidney failure Presented to the emergency room for abnormal kidney function which was tested at his nursing facility. Upon admit creatinine noted at 3.23, GFR 18, BUN 124. Patient does have a known history of CKD. Today kidney function showed improvement with creatinine 3.0, GFR 21, BUN 98.5. -WBC 8.5, hemoglobin 9.7, platelets 161,000. Iron saturation 25.5%, ferritin 71.8. LFTs and bilirubin WNL. -Nephrology has been consulted -Ultrasound kidneys renal and bladder showing echogenic focus within the inferior pole of left kidney which may be a nonobstructing renal stone but is negative for bilateral hydronephrosis. -Aranesp has been started -Defer management to nephrology and admitting team CML: -Oncology history as dictated in the HPI -Has continued on Gleevac with good tolerance. He has had stable disease with negative BCR/ABL testing since that time -Hold Gleevac during acute condition -Repeat BCR-ABL ordered -Clinic f/u upom discharge Attests: I have seen and examined pt, performed H&P, developed impression and plan of care. Discussed with dictator. Agree with documentation, dictated as a scribe.
[2024-12-21 20:35] LABS: Glucose,Whole Blood 151 mg/dL (70-110)
[2024-12-22 07:06] LABS: Glucose,Whole Blood 119 mg/dL (70-110)
[2024-12-22] MEDS: FAMOTIDINE 20 MG TAB PO SCH (08:40)
[2024-12-22 10:29] LABS: BUN/Creat Ratio 32.19 Ratio (12.00-20.00); Blood Urea Nitrogen 83.7 mg/dL (9.0-27.0); Carbon Dioxide 30.7 mmol/L (21.6-31.8); Chloride 103 mmol/L (96-109); Glucose 116 mg/dL (70-110); Magnesium 2.1 mg/dL (1.5-2.4); Potassium 4.1 mmol/L (3.5-5.5); Sodium 142 mmol/L (135-145)
[2024-12-22] MEDS: ONDANSETRON 4 MG/2 ML VIAL IVP PRN (10:43)
--- NOTE | 2024-12-22 10:48 | P.PN ---
Subjective Patient is seen in follow-up for acute kidney injury on chronic kidney disease. Renal function better. Maintained on IV Lasix. Nonoliguric. Denies chest pain or shortness of breath. Vital signs are stable. General: No acute distress. HEENT: Head exam is unremarkable. LUNGS: No audible rhonchi or wheezes. HEART: Rate and Rhythm are regular. ABDOMEN: Obese, nontender. EXTREMITITES: 2+ edema. Objective - Vital Signs Vital signs: Vital Signs Temp 97.9 F 12/22/24 07:08 Pulse 83 12/22/24 07:08 Resp 16 12/22/24 07:08 BP 175/51 12/22/24 07:08 Pulse Ox 96 12/22/24 07:08 FiO2 Intake & Output 12/21/24 12/22/24 12/22/24 18:59 06:59 18:59 Intake Total 960 400 Output Total 2200 3000 1200 Balance -1240 -2600 -1200 Intake: Oral 960 400 Output: Urine 2200 3000 1200 Other: Voiding Method External Catheter External Catheter External Catheter # Bowel Movements 1 1 - Labs CBC & Chem 7: 12/19/24 19:07 12/22/24 03:17 Labs: Abnormal Lab Results - Last 24 Hours (Table) 12/21/24 12/21/24 12/21/24 Range/Units 12:14 17:20 20:31 BUN (9.0-27.0) mg/dL Creatinine (0.6-1.5) mg/dL Est GFR (CKD-EPI) (>=60) BUN/Creatinine Ratio (12.00-20.00) Ratio Glucose (70-110) mg/dL POC Glucose (mg/dL) 137 H 154 H 151 H (70-110) mg/dL 12/22/24 12/22/24 Range/Units 03:17 07:05 BUN 83.7 H (9.0-27.0) mg/dL Creatinine 2.6 H (0.6-1.5) mg/dL Est GFR (CKD-EPI) 25 L (>=60) BUN/Creatinine Ratio 32.19 H (12.00-20.00) Ratio Glucose 116 H (70-110) mg/dL POC Glucose (mg/dL) 119 H (70-110) mg/dL Assessment and Plan Plan: Assessment: 1. Acute kidney injury secondary to ATN secondary to cardiorenal syndrome. No proteinuria on UA. Creatinine 3.23 on admission and is 2.6 today. No hydronephrosis noted on kidney ultrasound. 2. Chronic kidney disease stage IIIb/4 with baseline creatinine near 2 secondar y to cardiorenal syndrome and diabetic kidney disease. 3. Volume overload. Improving with diuresis. 4. Anemia of chronic kidney disease. Iron replete. On Aranesp. 5. Acute on chronic diastolic CHF. 6. Hypertension with chronic kidney disease. 7. Diabetes mellitus. Plan: Maintain IV Lasix. Continue to hold losartan. Add hydralazine. Avoid nephrotoxins. Continue to monitor renal function and urine output.
[2024-12-22 12:08] LABS: Glucose,Whole Blood 182 mg/dL (70-110)
[2024-12-22] MEDS: hydrALAZINE HCL 25 MG TAB PO SCH (12:20)
[2024-12-22 17:10] LABS: Glucose,Whole Blood 199 mg/dL (70-110)
[2024-12-22 20:09] LABS: Glucose,Whole Blood 158 mg/dL (70-110)
[2024-12-23 07:20] LABS: Glucose,Whole Blood 160 mg/dL (70-110)
[2024-12-23 07:37] LABS: African American GFR (CKD) 33 (>60 ml/min/1.73 sqM); Anion Gap 4 mmol/L; Blood Urea Nitrogen 80 mg/dL (9-20); Calcium 8.7 mg/dL (8.4-10.2); Carbon Dioxide 35 mmol/L (22-30); Chloride 101 mmol/L (98-107); Glucose 117 mg/dL (74-99); Magnesium 2.1 mg/dL (1.6-2.3); Non-African American GFR(CKD) 28 (>60 ml/min/1.73 sqM); Potassium 4.3 mmol/L (3.5-5.1); Sodium 140 mmol/L (137-145)
[2024-12-23] MEDS: INSULIN GLARGINE (LANTUS) 100 UNIT/ML SYR SQ SCH (09:21)
--- NOTE | 2024-12-23 10:49 | P.PN ---
Subjective Patient is seen in follow-up for acute kidney injury on chronic kidney disease. Renal function better. Maintained on IV Lasix. Nonoliguric. Denies chest pain or shortness of breath. Vital signs are stable. General: No acute distress. HEENT: Head exam is unremarkable. LUNGS: No audible rhonchi or wheezes. HEART: Rate and Rhythm are regular. ABDOMEN: Obese, nontender. EXTREMITITES: 1+ edema. Objective - Vital Signs Vital signs: Vital Signs Temp 98.5 F 12/23/24 07:36 Pulse 82 12/23/24 07:36 Resp 16 12/23/24 07:36 BP 158/66 12/23/24 07:36 Pulse Ox 95 12/23/24 07:36 FiO2 Intake & Output 12/22/24 12/23/24 12/23/24 18:59 06:59 18:59 Intake Total 1675 540 Output Total 3300 1875 Balance -1625 -1335 Intake: Oral 1675 540 Output: Urine 3300 1875 Other: Voiding Method External Catheter External Catheter External Catheter # Bowel Movements 1 - Labs CBC & Chem 7: 12/19/24 19:07 12/23/24 07:01 Labs: Abnormal Lab Results - Last 24 Hours (Table) 12/22/24 12/22/24 12/22/24 Range/Units 12:07 17:08 20:08 Carbon Dioxide (22-30) mmol/L BUN (9-20) mg/dL Creatinine (0.66-1.25) mg/dL Glucose (74-99) mg/dL POC Glucose (mg/dL) 182 H 199 H 158 H (70-110) mg/dL 12/23/24 12/23/24 Range/Units 06:56 07:01 Carbon Dioxide 35 H (22-30) mmol/L BUN 80 H (9-20) mg/dL Creatinine 2.20 H (0.66-1.25) mg/dL Glucose 117 H (74-99) mg/dL POC Glucose (mg/dL) 160 H (70-110) mg/dL Assessment and Plan Plan: Assessment: 1. Acute kidney injury secondary to ATN secondary to cardiorenal syndrome. No proteinuria on UA. Creatinine 3.23 on admission and is improved to 2.2 today. No hydronephrosis noted on kidney ultrasound. 2. Chronic kidney disease stage IIIb/4 with baseline creatinine near 2 secondary to cardiorenal syndrome and diabetic kidney disease. 3. Volume overload. Improving with diuresis. 4. Anemia of chronic kidney disease. Iron replete. On Aranesp. 5. Acute on chronic diastolic CHF. 6. Hypertension with chronic kidney disease. 7. Diabetes mellitus. Plan: Maintain IV Lasix. Transition to oral Lasix tomorrow. Continue to hold losartan. Increase dose of hydralazine. Avoid nephrotoxins. Continue to monitor renal function and urine output. Potential discharge tomorrow. Follow-up outpatient 1 week postdischarge.
[2024-12-23 12:07] LABS: Glucose,Whole Blood 169 mg/dL (70-110)
[2024-12-23 17:25] LABS: Glucose,Whole Blood 114 mg/dL (70-110)
[2024-12-23 20:13] LABS: Glucose,Whole Blood 168 mg/dL (70-110)
[2024-12-23] MEDS: hydrALAZINE HCL 50 MG TAB PO SCH (20:30)
[2024-12-24 07:23] LABS: Glucose,Whole Blood 102 mg/dL (70-110)
[2024-12-24 08:28] LABS: BUN/Creat Ratio 26.68 Ratio (12.00-20.00); Blood Urea Nitrogen 58.7 mg/dL (9.0-27.0); Calcium 8.9 mg/dL (8.7-10.3); Carbon Dioxide 31.7 mmol/L (21.6-31.8); Chloride 104 mmol/L (96-109); Glucose 106 mg/dL (70-110); Potassium 4.7 mmol/L (3.5-5.5); Sodium 142 mmol/L (135-145)
--- NOTE | 2024-12-24 12:08 | P.PN ---
Subjective Patient is seen for follow-up for acute kidney injury and chronic kidney disease. Currently maintained on IV Lasix Renal function is stable with serum creatinine staying at about 2.2 mg/dL. No significant complaints today. Objective - Vital Signs Vital signs: Vital Signs Temp 97.9 F 12/24/24 07:20 Pulse 78 12/24/24 07:20 Resp 16 12/24/24 07:20 BP 163/67 12/24/24 07:20 Pulse Ox 94 L 12/24/24 07:20 FiO2 Intake & Output 12/23/24 12/24/24 12/24/24 18:59 06:59 18:59 Intake Total 240 200 480 Output Total 800 1400 Balance -560 -1200 480 Intake: Oral 240 200 480 Output: Urine 800 1400 Other: Voiding Method External Catheter External Catheter External Catheter - Exam Patient is awake, comfortable, no acute distress. Examination of the heart S1 and S2 Examination of the lungs bilateral breath sounds are heard Abdomen is soft morbidly obese Examination of lower extremity shows chronic skin changes, chronic edema NEWSPAPER CLIPPER exam grossly intact - Labs CBC & Chem 7: 12/19/24 19:07 12/24/24 05:35 Labs: Abnormal Lab Results - Last 24 Hours (Table) 12/23/24 12/23/24 12/23/24 Range/Units 12:04 17:16 20:11 BUN (9.0-27.0) mg/dL Creatinine (0.6-1.5) mg/dL Est GFR (CKD-EPI) (>=60) BUN/Creatinine Ratio (12.00-20.00) Ratio POC Glucose (mg/dL) 169 H 114 H 168 H (70-110) mg/dL 12/24/24 Range/Units 05:35 BUN 58.7 H (9.0-27.0) mg/dL Creatinine 2.2 H (0.6-1.5) mg/dL Est GFR (CKD-EPI) 30 L (>=60) BUN/Creatinine Ratio 26.68 H (12.00-20.00) Ratio POC Glucose (mg/dL) (70-110) mg/dL Assessment and Plan Assessment: 1. Acute kidney injury secondary to ATN secondary to cardiorenal syndrome. No proteinuria on UA. Creatinine 3.23 on admission and is improved to 2.2 . No hydronephrosis noted on kidney ultrasound. 2. Chronic kidney disease stage IIIb/4 with baseline creatinine near 2 sec ondary to cardiorenal syndrome and diabetic kidney disease. 3. Volume overload. Improving with diuresis. 4. Anemia of chronic kidney disease. Iron replete. On Aranesp. 5. Acute on chronic diastolic CHF. 6. Hypertension with chronic kidney disease. 7. Diabetes mellitus. Plan: Can switch to oral diuretics if planning for discharge today. Patient was maintained on 40 mg of Lasix twice a day at home. Continue to hold off on losartan. Increase hydralazine to 3 times daily
[2024-12-24 12:27] LABS: Glucose,Whole Blood 143 mg/dL (70-110)
[2024-12-24 17:13] LABS: Glucose,Whole Blood 169 mg/dL (70-110)
[2024-12-24] MEDS: hydrALAZINE HCL 50 MG TAB PO SCH (17:36)
[2024-12-24 20:07] LABS: Glucose,Whole Blood 153 mg/dL (70-110)
--- NOTE | 2024-12-25 01:33 | PN ---
PROGRESS NOTE DATE OF SERVICE: 12/24/2024 CHIEF COMPLAINT: Acute on chronic renal failure. HISTORY OF PRESENT ILLNESS: This gentleman is doing fairly well. The GFR is doing fairly well and still in the low 30s. PHYSICAL EXAMINATION: CHEST: Clear. CARDIAC: Normal. ABDOMEN: Soft, nontender. GENERAL: He remains a little bit lethargic and at times confused. IMPRESSION: 1. Delirium. 2. Acute on chronic congestive heart failure. 3. Type 2 diabetes. 4. Chronic myelogenous leukemia. 5. Morbid obesity. PLAN: Continue with current program and he can probably go back to the senior living anytime. MMODL / IJN: [id number] /
[2024-12-25 07:21] LABS: Glucose,Whole Blood 86 mg/dL (70-110)
--- NOTE | 2024-12-25 11:01 | P.PN ---
Subjective Patient is seen for follow-up for acute kidney injury and chronic kidney disease. Currently maintained on IV Lasix Renal function is stable with serum creatinine staying at about 2.2 mg/dL. No significant complaints today. Objective - Vital Signs Vital signs: Vital Signs Temp 98.3 F 12/25/24 07:56 Pulse 86 12/25/24 07:56 Resp 16 12/25/24 07:56 BP 170/73 12/25/24 07:56 Pulse Ox 94 L 12/25/24 07:56 FiO2 Intake & Output 12/24/24 12/25/24 12/25/24 18:59 06:59 18:59 Intake Total 2040 540 480 Output Total 1700 Balance 2040 -1160 480 Intake: Oral 2040 540 480 Output: Urine 1700 Other: Voiding Method External Catheter External Catheter # Voids 5 # Bowel Movements 1 - Exam Patient is awake, comfortable, no acute distress. Examination of the heart S1 and S2 Examination of the lungs bilateral breath sounds are heard Abdomen is soft morbidly obese Examination of lower extremity shows chronic skin changes, chronic edema DREDGE PUMP OPERATOR exam grossly intact - Labs CBC & Chem 7: 12/19/24 19:07 12/24/24 05:35 Labs: Abnormal Lab Results - Last 24 Hours (Table) 12/24/24 12/24/24 12/24/24 Range/Units 12:26 17:11 20:05 POC Glucose (mg/dL) 143 H 169 H 153 H (70-110) mg/dL Assessment and Plan Assessment: 1. Acute kidney injury secondary to ATN secondary to cardiorenal syndrome. No proteinuria on UA. Creatinine 3.23 on admission and is improved to 2.2 . No hydronephrosis noted on kidney ultrasound. 2. Chronic kidney disease stage IIIb/4 with baseline creatinine near 2 secondary to cardiorenal syndrome and diabetic kidney disease. 3. Volume overload. Improving with diuresis. 4. Anemia of chronic kidney disease. Iron replete. On Aranesp. 5. Acute on chronic diastolic CHF. 6. Hypertension with chronic kidney disease. 7. Diabetes mellitus. Plan: Can switch to oral diuretics Patient was maintained on 40 mg of Lasix twice a day at home. Continue to hold off on losartan.
[2024-12-25 12:16] LABS: Glucose,Whole Blood 183 mg/dL (70-110)
[2024-12-25 17:09] LABS: Glucose,Whole Blood 143 mg/dL (70-110)
[2024-12-25] MEDS: FUROSEMIDE 40 MG TAB PO SCH (18:04)
[2024-12-25 19:49] LABS: Glucose,Whole Blood 187 mg/dL (70-110)
[2024-12-25] MEDS: ACETAMINOPHEN TAB 325 MG TAB PO PRN (20:38)
--- NOTE | 2024-12-25 23:14 | PN ---
PROGRESS NOTE DATE OF SERVICE: 12/25/2024 CHIEF COMPLAINT: Acute on chronic renal failure. HISTORY OF PRESENT ILLNESS: This gentleman is stable, and apparently, he is waiting for insurance authorization to allow him to return to the senior living. PHYSICAL EXAMINATION: CHEST: He has scattered rales, but otherwise, chest is clear. CARDIAC EXAM: Unremarkable. ABDOMEN: Soft, nontender. IMPRESSION: 1. Acute on chronic renal failure. 2. Type 2 diabetes mellitus. 3. Chronic myeloid leukemia. 4. Obesity. PLAN: Await clearance for discharge. MMODL / IJN: [id number] /
[2024-12-26 07:24] LABS: Glucose,Whole Blood 110 mg/dL (70-110)
[2024-12-26] MEDS: NYSTATIN 100,000 UNIT/GM POWD 15 GM TOPICAL SCH (08:55)
[2024-12-26 10:25] LABS: African American GFR (CKD) 31 (>60 ml/min/1.73 sqM); Anion Gap 6 mmol/L; Blood Urea Nitrogen 54 mg/dL (9-20); Carbon Dioxide 35 mmol/L (22-30); Chloride 99 mmol/L (98-107); Glucose 182 mg/dL (74-99); Non-African American GFR(CKD) 27 (>60 ml/min/1.73 sqM); Potassium 4.4 mmol/L (3.5-5.1); Sodium 140 mmol/L (137-145)
[2024-12-26 12:09] LABS: Glucose,Whole Blood 233 mg/dL (70-110)
--- NOTE | 2024-12-26 12:55 | P.PN ---
Subjective Patient is seen for follow-up for acute kidney injury and chronic kidney disease. Currently maintained on IV Lasix Renal function is stable with serum creatinine staying at about 2.2 mg/dL. No significant complaints today. Objective - Vital Signs Vital signs: Vital Signs Temp 97.9 F 12/26/24 05:53 Pulse 78 12/26/24 05:53 Resp 18 12/26/24 05:53 BP 150/74 12/26/24 05:53 Pulse Ox 96 12/26/24 05:53 FiO2 Intake & Output 12/25/24 12/26/24 12/26/24 18:59 06:59 18:59 Intake Total 1800 300 Output Total 2200 1000 600 Balance -400 -700 -600 Intake: Oral 1800 300 Output: Urine 2200 1000 600 Other: Voiding Method External Catheter Urinal Diaper Incontinent # Voids 5 # Bowel Movements 1 - Exam Patient is awake, comfortable, no acute distress. Abdomen is soft morbidly obese Examination of lower extremity shows chronic skin changes, chronic edema LIBRARY DIRECTOR exam grossly intact - Labs CBC & Chem 7: 12/19/24 19:07 12/26/24 09:37 Labs: Abnormal Lab Results - Last 24 Hours (Table) 12/25/24 12/25/24 12/26/24 Range/Units 17:08 19:47 09:37 Carbon Dioxide 35 H (22-30) mmol/L BUN 54 H (9-20) mg/dL Creatinine 2.26 H (0.66-1.25) mg/dL Glucose 182 H (74-99) mg/dL POC Glucose (mg/dL) 143 H 187 H (70-110) mg/dL 12/26/24 Range/Units 12:08 Carbon Dioxide (22-30) mmol/L BUN (9-20) mg/dL Creatinine (0.66-1.25) mg/dL Glucose (74-99) mg/dL POC Glucose (mg/dL) 233 H (70-110) mg/dL Assessment and Plan Assessment: 1. Acute kidney injury secondary to ATN secondary to cardiorenal syndrome. No proteinuria on UA. Creatinine 3.23 on admission and is improved to 2.2 . No hydronephrosis noted on kidney ultrasound. 2. Chronic kidney disease stage IIIb/4 with baseline creatinine near 2 secondary to cardiorenal syndrome and diabetic kidney disease. 3. Volume overload. Improving with diuresis. 4. Anemia of chronic kidney disease. Iron replete. On Aranesp. 5. Acute on chronic diastolic CHF. 6. Hypertension with chronic kidney disease. 7. Diabetes mellitus. Plan: Check labs today. Continue to hold off on losartan.
[2024-12-26 17:11] LABS: Glucose,Whole Blood 151 mg/dL (70-110)
[2024-12-26 20:32] LABS: Glucose,Whole Blood 192 mg/dL (70-110)
[2024-12-27 07:30] LABS: Glucose,Whole Blood 128 mg/dL (70-110)
--- NOTE | 2024-12-27 12:20 | DS ---
DISCHARGE SUMMARY CHIEF COMPLAINT: Acute on chronic renal failure. HISTORY OF PRESENT ILLNESS AND PHYSICAL EXAMINATION: Details of this man's history and physical can be found in the initial workup. LABORATORY STUDIES: While he was in the hospital, he had laboratory studies, details of which can be found in the laboratory section of his chart. COURSE IN THE HOSPITAL: After admission, he was placed on bedrest, started on intravenous fluids and seen and followed by Nephrology. His GFR shannan slowly and shannan to just above 30. He had no further problems with nausea or vomiting. He had no fever or chills. Nephrology finally felt he was cleared to be returned to the halfway and he will be sent there on the . FINAL DIAGNOSES: 1. Acute kidney injury. 2. Chronic renal failure, stage 4. 3. Insulin-dependent diabetes mellitus. 4. Delirium. 5. Dementia. 6. Acute myeloid leukemia. 7. Morbid obesity. 8. Fracture of the right knee. OPERATIONS: None. CONSULTATIONS: Nephrology. MMCHANDAN / ETHEL: [id number] /
[2024-12-27 12:29] LABS: Glucose,Whole Blood 170 mg/dL (70-110)
[2024-12-27 12:32] VITALS: BP 129/62; PULSE 79; RESP 18; TEMP 98
== END 2024-12-27 16:00 | DRG 291 ==
LOC: EC 18:05 → 5NMEDONC 20:58 → OBSVTOIN 20:59 → 5NMEDONC 21:21
PROVIDERS: ADMIT Family Medicine; ATTEND Family Medicine
DX: I13.0 Hypertensive heart and chronic kidney disease with heart failure and stage 1 through stage 4 chronic kidney disease, or unspecified chronic kidney disease (principal); I50.33 Acute on chronic diastolic (congestive) heart failure; N17.0 Acute kidney failure with tubular necrosis; F05 Delirium due to known physiological condition; C92.10 Chronic myeloid leukemia, BCR/ABL-positive, not having achieved remission; N18.4 Chronic kidney disease, stage 4 (severe); G82.20 Paraplegia, unspecified; E11.22 Type 2 diabetes mellitus with diabetic chronic kidney disease; E66.01 Morbid (severe) obesity due to excess calories; J45.909 Unspecified asthma, uncomplicated; D63.1 Anemia in chronic kidney disease; Z79.4 Long term (current) use of insulin; E78.5 Hyperlipidemia, unspecified; M19.90 Unspecified osteoarthritis, unspecified site; G47.33 Obstructive sleep apnea (adult) (pediatric); M10.071 Idiopathic gout, right ankle and foot; M19.041 Primary osteoarthritis, right hand; M19.042 Primary osteoarthritis, left hand; Z79.890 Hormone replacement therapy; Z79.899 Other long term (current) drug therapy; Z83.3 Family history of diabetes mellitus; Z98.41 Cataract extraction status, right eye; Z96.1 Presence of intraocular lens; Z87.19 Personal history of other diseases of the digestive system; Z90.49 Acquired absence of other specified parts of digestive tract; Z88.5 Allergy status to narcotic agent; Z88.8 Allergy status to other drugs, medicaments and biological substances; Z88.1 Allergy status to other antibiotic agents; Z88.2 Allergy status to sulfonamides
CPT/HCPCS: 36415; 51798; 71046; 76770; 80048; 80053; 81001; 82728; 83540; 83550; 83735; 83880; 84100; 85025; 85610; 85730; 93005; 99285

== ENCOUNTER 2025-01-06 07:35 | Observation (INO) | payer OTHER, MEDICARE ==
[2025-01-06 07:53] LABS: Glucose,Whole Blood 284 mg/dL (70-110)
--- NOTE | 2025-01-06 08:02 | ED ---
General Adult HPI - General Chief complaint: Recheck/Abnormal Lab/Rx Stated complaint: Diabetic issues Time Seen by Provider: 01/06/25 07:38 Source: patient, EMS Mode of arrival: EMS - History of Present Illness Initial comments: Dictation was produced using [employer] dictation software. please excuse any grammatical, word or spelling errors. Chief Complaint: 74-year-old male presents emergency department abnormal outpatient labs History of Present Illness: Patient is 74-year-old male he is a reliable historian brought in from [facility] for hypoglycemia and elevated renal function. Patient has had some intermittent bouts of nausea and vomiting. States that he feels malaised however has no significant complaints. States that his kidney function has been slowly worsening on blood work. He was also found to have hyperglycemia. Patient brought to the ER by EMS. States that he has a halfway for debility secondary to femur injury The ROS documented in this emergency department record has been reviewed and confirmed by me. Those systems with pertinent positive or negative responses have been documented in the HPI. All other systems are other negative and/or noncontributory. - Related Data Home Medications Medication Instructions Recorded Confirmed Famotidine 20 mg PO BID 04/12/23 12/20/24 Acetaminophen Tab [Tylenol] 650 mg PO Q6H PRN 03/26/24 12/20/24 Imatinib Mesylate 300 mg PO HS 03/26/24 12/20/24 Levothyroxine Sodium 50 mcg PO DAILY@0600 03/26/24 12/20/24 Lidocaine 4% Patch 1 patch TRANSDERM DAILY 03/26/24 12/20/24 Magnesium Oxide [Magox 400] 400 mg PO DAILY 03/26/24 12/20/24 Tamsulosin [Flomax] 0.4 mg PO DAILY 03/26/24 12/20/24 Baclofen 5 mg PO TID@0500,1300,2100 04/26/24 12/20/24 Darbepoetin Bo [Aranesp] 60 mcg SQ GUO@1100 04/26/24 12/20/24 Insulin Glargine,Hum.rec.anlog 10 units PO DAILY 05/21/24 12/20/24 [Lantus Solostar Pen] Ergocalciferol (Vitamin D2) 1,250 mcg PO MO 11/15/24 12/20/24 [Drisdol (50,000 Iu)] Insulin Aspart (Niacinamide) See Protocol SQ ACHS 11/15/24 12/20/24 [Fiasp 100 Unit/ml Flextouch Pen] L.acidoph,Paracasei, B.lactis 1 cap PO BID 11/15/24 12/20/24 [Probiotic] Losartan Potassium [Cozaar] 100 mg PO DAILY 11/15/24 12/20/24 Metoclopramide [Reglan] 10 mg PO TID@0600,1100,1600 11/15/24 12/20/24 allopurinoL [Zyloprim] 300 mg PO DAILY 11/15/24 12/20/24 amLODIPine [Norvasc] 10 mg PO DAILY 11/15/24 12/20/24 hydrALAZINE HCL [Apresoline] 50 mg PO TID@0500,1300,2100 11/15/24 12/20/24 Furosemide [Lasix] 40 mg PO BID@0800,1600 12/20/24 12/20/24 Ondansetron [Zofran] 4 mg PO Q6H PRN 12/20/24 12/20/24 Sucralfate [Carafate] 1 gm PO ACHS 12/20/24 12/20/24 metOLazone [Zaroxolyn] 2.5 mg PO DAILY@0730 12/20/24 12/20/24 Previous Rx's Medication Instructions Recorded Sodium Zirconium Cyclosilicate 10 gm PO DAILY packet 11/22/24 [Lokelma] Nystatin 100,000 Unit/gm Powd 1 applic TOPICAL BID #1 each 12/26/24 [Mycostatin Powder] Allergies Allergy/AdvReac Type Severity Reaction Status Date / Time TACOS Inhibitors Allergy Unknown Verified 01/06/25 07:41 codeine Allergy Unknown Verified 01/06/25 07:41 lisinopril Allergy Unknown Verified 01/06/25 07:41 oxycodone Allergy Unknown Verified 01/06/25 07:41 sulfamethoxazole Allergy Unknown Verified 01/06/25 07:41 [From Bactrim] trimethoprim [From Bactrim] Allergy Unknown Verified 01/06/25 07:41 TIDE LAUNDRY SOAP Allergy Severe Rash/Hives Uncoded 01/06/25 07:41 Review of Systems ROS Statement: Those systems with pertinent positive or pertinent negative responses have been documented in the HPI. ROS Other: All systems not noted in ROS Statement are negative. Past Medical History Past Medical History: Asthma, Cancer, Diabetes Mellitus, GERD/Reflux, Hyperlipidemia, Hypertension, Osteoarthritis (OA), Pneumonia, Renal Disease, Sleep Apnea/CPAP/BIPAP Additional Past Medical History / Comment(s): [place] leukemia recently started oral chemo 10/10/19, currently on Gleevic, IDDM type II, pt states he occasionally has hypoglycemia during middle of night, arthritis bilateral hands and occasionally in bilateral knees, gout R foot, WILLAM with Cpap use, chronic kidney disease stage 4 with baseline creatinine near 2 due to diabetic kidney disease and chronic interstitial nephritis, anemia History of Any Multi-Drug Resistant Organisms: ESBL Date of last positivie culture/infection: 11/15/24 MDRO Source:: urine Past Surgical History: Back Surgery, Cholecystectomy, Hernia Repair Additional Past Surgical History / Comment(s): 09/2019 bone marrow biopsy, incisional hernia, colonoscopy with benign polyps. Right cataract removal with IOL implant. PARATHYROIDECTOMY - July 2023 Past Anesthesia/Blood Transfusion Reactions: No Reported Reaction Past Psychological History: No Psychological Hx Reported Smoking Status: Never smoker Past Alcohol Use History: None Reported Past Drug Use History: None Reported - Past Family History Father Family Medical History: Diabetes Mellitus Additional Family Medical History / Comment(s): Father is 97 yrs old. Mother Family Medical History: Dementia Additional Family Medical History / Comment(s): Mother of dementia at the age of 85yrs. General Exam - General Exam Comments Initial Comments: PHYSICAL EXAM: General Impression: Alert and oriented x3, not in acute distress HEENT: Normocephalic atraumatic, extra-ocular movements intact, pupils equal and reactive to light bilaterally, mucous membranes moist. Cardiovascular: Heart regular rate and rhythm Chest: Able to complete full sentences, no retractions, no tachypnea Abdomen: abdomen soft, non-tender, non-distended, no organomegaly Musculoskeletal: Pulses present and equal in all extremities, no peripheral edema Motor: no focal deficits noted Neurological: CN II-XII grossly intact, no focal motor or sensory deficits noted Skin: Intact with no visualized rashes Psych: Normal affect and mood Course Vital Signs 01/06/25 07:38 Temperature 97.4 F L Pulse Rate 90 Respiratory 18 Rate Blood Pressure 158/69 O2 Sat by Pulse 97 Oximetry Medical Decision Making - Medical Decision Making Was pt. sent in by a medical professional or institution (, PA, PHONE SPECIALIST, urgent care, hospital, or halfway...) When possible be specific @ -No Did you speak to anyone other than the patient for history (EMS, parent, family, police, friend...)? What history was obtained from this source @ -EMS as described above Did you review nursing and triage notes (agree or disagree)? Why? @ -I reviewed and agree with nursing and triage notes Were old charts reviewed (outside hosp., previous admission, EMS record, old EKG, old radiological studies, urgent care reports/EKG's, halfway records)? Report findings @ -No old charts were reviewed Differential Diagnosis (chest pain, altered mental status, abdominal pain women, abdominal pain men, vaginal bleeding, musculoskeletal, weakness, fever, dyspnea, syncope, headache, dizziness, GI bleed, back pain, seizure, CVA, palpatations, mental health)? @ -Differential Weakness: Hypoglycemia, shock, sepsis, hyponatremia, anemia, infection, MS, ETOH, adverse medicine reaction, overdose, stroke, this is not meant to be an all-inclusive list. EKG interpreted by me (3pts min.). @ -None done X-rays interpreted by me (1pt min.). @ -None done CT interpreted by me (1pt min.). @ -None done U/S interpreted by me (1pt. min.). @ -None done What testing was considered but not performed or refused? (CT, X-rays, U/S, labs)? Why? @ -None What meds were considered but not given or refused? Why? @ -None Was smoking cessation discussed for >3mins.? @ -No Were there social determinants of health that impacted care today? How? (Homelessness, low income, unemployed, alcoholism, drug addiction, transportation, low edu. Level, literacy, decrease access to med. care, retirement, rehab)? @ -No Was there de-escalation of care discussed even if they declined (Discuss DNR or withdrawal of care, Hospice)? DNR status @ -No What co-morbidities impacted this encounter? (DM, HTN, Smoking, COPD, CAD, Cancer, CVA, ARF, Chemo, Hep., AIDS, mental health diagnosis, sleep apnea, morbid obesity)? @ -Kidney disease Was patient admitted / discharged? Hospital course, mention meds given and route, prescriptions, significant lab abnormalities, going to OR and other pertinent info. @ -74-year-old male presents to the emergency department for abnormal outpatient labs. Has reportedly increasing renal function. Patient has been throwing up states he feels a little weak otherwise has no other specific complaints. Vital signs stable. Physical examination shows well-appearing male in no acute distress. Laboratory evaluation obtained. Metabolic panel shows sodium 132, BUN of 112, creatinine 2.74. Blood glucose of 306. Patient given IV fluids. Patient still nauseated at the bedside will be admitted with consultation to nephrology. Case discussed with Dr. Castellano for admission. Did you discuss the management of the patient with other professionals (professionals i.e. , PA, PHONE SPECIALIST, lab, RT, psych nurse, family welfare social work professor, bullet maker, teacher, first aid officer, showcase trimmer)? Give summary @ -See above Was critical care preformed (if so, how long)? @ -No Undiagnosed new problem with uncertain prognosis? @ -No Drug Therapy requiring intensive monitoring for toxicity (Heparin, Nitro, Insulin, Cardizem)? @ -No Were any procedures done? @ -No Diagnosis/symptom? Acute, or Chronic, or Acute on Chronic? Uncomplicated (without systemic symptoms) or Complicated (systemic symptoms)? @ -Dehydration Side effects of treatment? @ -No Exacerbation, Progression, or Severe Exacerbation? @ -No Poses a threat to life or bodily function? How? (Chest pain, USA, MS, pneumonia, PE, COPD, DKA, ARF, appy, cholecystitis, CVA, Diverticulitis, Homicidal, Suicidal, threat to staff... and all critical care pts) @ -yes - Lab Data Result diagrams: 01/06/25 07:49 01/06/25 07:49 Lab Results 01/06/25 01/06/25 01/06/25 Range/Units 07:49 07:49 07:51 WBC 9.7 (3.8-10.6) k/uL RBC 3.61 L (4.30-5.90) m/uL Hgb 11.3 L (13.0-17.5) gm/dL Hct 36.0 L (39.0-53.0) % MCV 99.7 (80.0-100.0) fL MCH 31.5 (25.0-35.0) pg MCHC 31.6 (31.0-37.0) g/dL RDW 14.6 (11.5-15.5) % Plt Count 260 (150-450) k/uL MPV 8.2 Neutrophils % 67 % Lymphocytes % 16 % Monocytes % 8 % Eosinophils % 7 % Basophils % 1 % Neutrophils # 6.5 (1.3-7.7) k/uL Lymphocytes # 1.6 (1.0-4.8) k/uL Monocytes # 0.8 (0-1.0) k/uL Eosinophils # 0.7 (0-0.7) k/uL Basophils # 0.0 (0-0.2) k/uL Macrocytosis Slight Sodium 132 L (137-145) mmol/L Potassium 3.5 (3.5-5.1) mmol/L Chloride 93 L (98-107) mmol/L Carbon Dioxide 29 (22-30) mmol/L Anion Gap 10 mmol/L BUN 112 H* (9-20) mg/dL Creatinine 2.74 H (0.66-1.25) mg/dL Est GFR (CKD-EPI)AfAm 25 (>60 ml/min/1.73 sqM) Est GFR (CKD-EPI)NonAf 22 (>60 ml/min/1.73 sqM) Glucose 306 H (74-99) mg/dL POC Glucose (mg/dL) 284 H (70-110) mg/dL POC Glu Manager Community ID Graham Boyle Calcium 8.8 (8.4-10.2) mg/dL Total Bilirubin 0.5 (0.2-1.3) mg/dL AST 29 (17-59) U/L ALT 25 (4-49) U/L Alkaline Phosphatase 120 (38-126) U/L Total Protein 7.4 (6.3-8.2) g/dL Albumin 3.6 (3.5-5.0) g/dL Disposition Clinical Impression: Dehydration Disposition: ADMITTED IP TO THIS [facility] Condition: Fair Referrals: Dwayne Castellano MD [Primary Care Provider] - 1-2 days Decision Time: 08:50
[2025-01-06 08:12] LABS: ALT 25 U/L (4-49); AST 29 U/L (17-59); African American GFR (CKD) 25 (>60 ml/min/1.73 sqM); Albumin 3.6 g/dL (3.5-5.0); Alkaline Phosphatase 120 U/L (38-126); Anion Gap 10 mmol/L; Calcium 8.8 mg/dL (8.4-10.2); Carbon Dioxide 29 mmol/L (22-30); Chloride 93 mmol/L (98-107); Glucose 306 mg/dL (74-99); Non-African American GFR(CKD) 22 (>60 ml/min/1.73 sqM); Potassium 3.5 mmol/L (3.5-5.1); Sodium 132 mmol/L (137-145); Total Bilirubin 0.5 mg/dL (0.2-1.3); Total Protein 7.4 g/dL (6.3-8.2)
[2025-01-06] MEDS: SODIUM CHLORIDE 0.9% 1,000 ML IV STA (08:13)
[2025-01-06 08:14] LABS: Basophils % (A) 1 %; Eosinophils # (A) 0.7 k/uL (0-0.7); Eosinophils % (A) 7 %; HGB 11.3 gm/dL (13.0-17.5); Lymphocytes # (A) 1.6 k/uL (1.0-4.8); Lymphocytes % (A) 16 %; MCH 31.5 pg (25.0-35.0); MCHC 31.6 g/dL (31.0-37.0); MCV 99.7 fL (80.0-100.0); Macrocytosis Slight; Mean Platelet Volume 8.2; Monocytes # (A) 0.8 k/uL (0-1.0); Monocytes % (A) 8 %; Neutrophils # (A) 6.5 k/uL (1.3-7.7); Neutrophils % (A) 67 %; Platelet Count 260 k/uL (150-450); RBC 3.61 m/uL (4.30-5.90); RDW 14.6 % (11.5-15.5); WBC 9.7 k/uL (3.8-10.6)
[2025-01-06 08:31] LABS: Blood Urea Nitrogen 112 mg/dL (9-20)
[2025-01-06] MEDS ORDERED: NALOXONE 0.4 MG/ML 1 ML VIAL IV PRN (08:46)
[2025-01-06] MEDS: SODIUM CHLORIDE 0.9% 1,000 ML IV SCH (09:03)
--- NOTE | 2025-01-06 11:41 | P.NPCON ---
History of Present Illness - Reason for Consult acute renal failure, chronic renal failure - History of Present Illness Reason for consultation: Acute kidney injury on chronic kidney disease History of present illness: Patient is a 74-year-old male seen in renal consultation for acute kidney injury on chronic kidney disease. Patient was seen and examined in the emergency room patient has chronic kidney disease stage IIIb/IV with baseline creatinine near 2 secondary to cardiorenal syndrome and diabetic kidney disease. Patient was recently admitted with acute kidney injury and his creatinine at that time was 3.23 and improved to 2.2 upon discharge. Creatinine again was noted to be high at 3.3 dated January 01, 2025. Patient was sent to the hospital due to generalized weakness and not feeling well. Patient states she has had 1-2 episodes of vomiting daily for the last month now. He denies diarrhea. Creatinine today is 2.74. BUN 112. Patient is unsure how much Lasix he has been getting outpatient. He has been voiding. No gross hematuria or dysuria. Denies history of coronary artery disease. He does have longstanding history of diabetes. Denies chest pain or shortness of breath. Patient states during his last hospitalization he lost 35 to 40 pounds of weight. Over the last 2 weeks he states he has gained about 2 pounds. Vital signs are stable. General: No acute distress. HEENT: Head exam is unremarkable. LUNGS: No audible rhonchi or wheezes. HEART: Rate and Rhythm are regular. ABDOMEN: Obese, nontender. EXTREMITITES: No edema in the left lower extremity. 1+ edema in the right lower extremity. Past Medical History Past Medical History: Asthma, Cancer, Diabetes Mellitus, GERD/Reflux, Hyperlipidemia, Hypertension, Osteoarthritis (OA), Pneumonia, Renal Disease, Sleep Apnea/CPAP/BIPAP Additional Past Medical History / Comment(s): [place]ombs leukemia recently started oral chemo 10/10/19, currently on Gleevic, IDDM type II, pt states he occasionally has hypoglycemia during middle of night, arthritis bilateral hands and occasionally in bilateral knees, gout R foot, WILLAM with Cpap use, chronic kidney disease stage 4 with baseline creatinine near 2 due to diabetic kidney disease and chronic interstitial nephritis, anemia History of Any Multi-Drug Resistant Organisms: ESBL Date of last positivie culture/infection: 11/15/24 MDRO Source:: urine Past Surgical History: Back Surgery, Cholecystectomy, Hernia Repair Additional Past Surgical History / Comment(s): 09/2019 bone marrow biopsy, incisional hernia, colonoscopy with benign polyps. Right cataract removal with IOL implant. PARATHYROIDECTOMY - July 2023 Past Anesthesia/Blood Transfusion Reactions: No Reported Reaction Past Psychological History: No Psychological Hx Reported Smoking Status: Never smoker Past Alcohol Use History: None Reported Past Drug Use History: None Reported - Past Family History Father Family Medical History: Diabetes Mellitus Additional Family Medical History / Comment(s): Father is 97 yrs old. Mother Family Medical History: Dementia Additional Family Medical History / Comment(s): Mother of dementia at the age of 85yrs. Medications and Allergies Home Medications Medication Instructions Recorded Confirmed Type Famotidine 20 mg PO BID@0800,1600 04/12/23 01/06/25 History Acetaminophen Tab [Tylenol] 650 mg PO Q6H PRN 03/26/24 01/06/25 History Imatinib Mesylate 300 mg PO HS 03/26/24 01/06/25 History Levothyroxine Sodium 50 mcg PO DAILY@0600 03/26/24 01/06/25 History Magnesium Oxide [Magox 400] 400 mg PO DAILY@0800 03/26/24 01/06/25 History Tamsulosin [Flomax] 0.4 mg PO DAILY@0800 03/26/24 01/06/25 History Baclofen 5 mg PO TID@0500,1300,2100 04/26/24 01/06/25 History Insulin Glargine,Hum.rec.anlog 10 units PO DAILY 05/21/24 01/06/25 History [Lantus Solostar Pen] Ergocalciferol (Vitamin D2) 1,250 mcg PO MO@0800 11/15/24 01/06/25 History [Drisdol (50,000 Iu)] Insulin Aspart (Niacinamide) See Protocol SQ ACHS@06,11,16,20 11/15/24 01/06/25 History [Fiasp 100 Unit/ml Flextouch Pen] L.acidoph,Paracasei, B.lactis 1 cap PO BID 11/15/24 01/06/25 History [Probiotic] Metoclopramide [Reglan] 10 mg PO TID@0600,1100,1600 11/15/24 01/06/25 History allopurinoL [Zyloprim] 300 mg PO HS 11/15/24 01/06/25 History amLODIPine [Norvasc] 10 mg PO DAILY@0800 11/15/24 01/06/25 History hydrALAZINE HCL [Apresoline] 50 mg PO TID@0500,1300,2100 11/15/24 01/06/25 History Furosemide [Lasix] 40 mg PO BID 12/20/24 01/06/25 History Ondansetron [Zofran] 4 mg PO Q6H PRN 12/20/24 01/06/25 History Sucralfate [Carafate] 1 gm PO ACHS@06,11,16,20 12/20/24 01/06/25 History metOLazone [Zaroxolyn] 2.5 mg PO DAILY@0800 12/20/24 01/06/25 History Epoetin Bo-Epbx [Retacrit] 5,094 units SQ MOWEFR 01/06/25 01/06/25 History Sodium Zirconium Cyclosilicate 10 gm PO DAILY@0800 01/06/25 01/06/25 History [Lokelma] Allergies Allergy/AdvReac Type Severity Reaction Status Date / Time TACOS Inhibitors Allergy Unknown Verified 01/06/25 10:43 codeine Allergy Unknown Verified 01/06/25 10:43 lisinopril Allergy Unknown Verified 01/06/25 10:43 oxycodone Allergy Unknown Verified 01/06/25 10:43 sulfamethoxazole Allergy Unknown Verified 01/06/25 10:43 [From Bactrim] trimethoprim [From Bactrim] Allergy Unknown Verified 01/06/25 10:43 TIDE LAUNDRY SOAP Allergy Severe Rash/Hives Uncoded 01/06/25 07:41 Physical Exam Vitals: Vital Signs Temp Pulse Resp BP Pulse Ox 01/06/25 11:00 79 18 148/75 97 01/06/25 09:00 77 18 151/69 98 01/06/25 07:38 97.4 F L 90 18 158/69 97 Intake and Output 01/05/25 01/06/25 01/06/25 22:59 06:59 14:59 Other: Weight 118.388 kg Results - Lab Results Most recent lab results Calcium 8.8 mg/dL (8.4-10.2) 01/06/25 07:49 01/06/25 07:49 01/06/25 07:49 Assessment and Plan Plan: Assessment: 1. Acute kidney injury secondary to ATN secondary to diuresis. Creatinine 2.74. Kidney ultrasound dated December 20, 2024 showed no evidence of hydronephrosis with normal-sized kidneys. 2. Chronic kidney disease stage IIIb/IV with recent creatinine near 2 secondary to diabetic kidney disease and cardiorenal syndrome. 3. Chronic diastolic CHF. 4. Diabetes mellitus. 5. Hypertension with chronic kidney disease. Plan: Maintain IV fluids for now. Can likely Hep-Lock tomorrow. Encouraged oral intake. Hold off on diuretics at this time. Check bladder scan to rule out urinary retention. Repeat labs in the morning. Thank you for the consultation. I will continue to follow the patient with you during his hospital stay.
[2025-01-06 12:30] LABS: Glucose,Whole Blood 251 mg/dL (70-110)
[2025-01-06] MEDS ORDERED: ONDANSETRON ODT 4 MG TAB PO PRN (16:36)
[2025-01-06] MEDS ORDERED: DEXTROSE 50% SYRINGE 50 ML IVP PRN ×2 (17:05)
[2025-01-06 18:07] LABS: Glucose,Whole Blood 323 mg/dL (70-110)
[2025-01-06] MEDS: INSULIN LISPRO (HumaLOG) 100 UNIT/ML 10 mL VL SQ SCH (18:24)
[2025-01-06 19:46] LABS: Glucose,Whole Blood 349 mg/dL (70-110)
--- NOTE | 2025-01-06 21:14 | HP ---
HISTORY AND PHYSICAL CHIEF COMPLAINT: Uncontrolled diabetes and CKD. HISTORY OF PRESENT ILLNESS: This is another recent admission for this 74-year-old white male from [facility]. He was in the hospital recently for congestive heart failure and renal failure. He went back to the alf where he has had some difficulty with occasional episodes of nausea, vomiting, weakness, and delirium at times. On the day of admission, his BUN was 19, creatinine 3. His blood sugar was over 400. He was sent to the emergency room. REVIEW OF SYSTEMS: He denies any new neurologic problems, chest pain, abdominal pain, vomiting, etc. PAST MEDICAL HISTORY: Otherwise, unchanged. FAMILY HISTORY: Otherwise, unchanged. PERSONAL AND SOCIAL HISTORIES: Otherwise, unchanged. PHYSICAL EXAMINATION: HEAD EARS, EYES, NOSE, MOUTH AND THROAT: Normal except for dry mucous membranes. CHEST: Clear. CARDIAC: Demonstrated what sounded like atrial fibrillation. ABDOMEN: Soft, nontender. Bowel sounds are present. EXTREMITIES: Normal. GENERAL: He was dehydrated. ASSESSMENT: He is admitted to the hospital with diagnoses of: 1. Uncontrolled insulin-dependent diabetes mellitus. 2. Acute on chronic renal failure. 3. Dehydration. 4. History of chronic myelogenous leukemia. PLAN: 1. Bed rest. 2. IV fluids. 3. Manage his diabetes. 4. Consult with Nephrology. MMODL / IJN: [id number] /
[2025-01-06] MEDS: allopurinoL 300 MG TAB PO SCH (21:15)
[2025-01-06] MEDS: SUCRALFATE 1 GM TAB PO SCH (21:15)
[2025-01-06] MEDS: BACLOFEN 10 MG TAB PO SCH (21:15)
[2025-01-06] MEDS: hydrALAZINE HCL 25 MG TAB PO SCH (21:15)
[2025-01-06] MEDS: IMATINIB MESYLATE 100 MG PO SCH (21:16)
[2025-01-06 21:59] LABS: Glucose,Whole Blood 323 mg/dL (70-110)
[2025-01-07] MEDS: LEVOTHYROXINE 25 MCG TAB PO SCH (05:04)
[2025-01-07 05:40] LABS: Glucose,Whole Blood 230 mg/dL (70-110)
[2025-01-07] MEDS: FAMOTIDINE 20 MG TAB PO SCH (08:42)
[2025-01-07] MEDS: ERGOCALCIFEROL 1,250 MCG (50,000 IU) CAPSULE PO SCH (08:42)
[2025-01-07] MEDS: MAGNESIUM OXIDE 400 MG TAB PO SCH (08:42)
[2025-01-07] MEDS: amLODIPine 10 MG TAB PO SCH (08:42)
[2025-01-07] MEDS: TAMSULOSIN 0.4 MG CAP.ER.24H PO SCH (08:42)
[2025-01-07] MEDS: ONDANSETRON 4 MG/2 ML VIAL IVP PRN (08:58)
[2025-01-07 09:20] LABS: BUN/Creat Ratio 34.08 Ratio (12.00-20.00); Blood Urea Nitrogen 88.6 mg/dL (9.0-27.0); Chloride 100 mmol/L (96-109); Glucose 205 mg/dL (70-110); Potassium 3.4 mmol/L (3.5-5.5); Sodium 138 mmol/L (135-145)
[2025-01-07 09:21] LABS: Calcium 8.6 mg/dL (8.7-10.3); Carbon Dioxide 28.2 mmol/L (21.6-31.8); Magnesium 2.2 mg/dL (1.5-2.4)
[2025-01-07] MEDS: SODIUM ZIRCONIUM CYCLOSILICATE 10 GM PACKET PO SCH (11:26)
[2025-01-07 11:43] LABS: Glucose,Whole Blood 262 mg/dL (70-110)
[2025-01-07] MEDS: INSULIN GLARGINE (LANTUS) 100 UNIT/ML SYR SQ SCH ×2 (12:22→22:08)
--- NOTE | 2025-01-07 14:53 | P.PN ---
Subjective Patient is seen for follow-up for acute kidney injury and chronic kidney disease. Diuretics are on hold. Status post IV fluids. No significant complaints today. Serum creatinine 2.6 today Objective - Vital Signs Vital signs: Vital Signs Temp 98.1 F 01/07/25 07:00 Pulse 83 01/07/25 07:00 Resp 16 01/07/25 07:00 BP 149/67 01/07/25 07:00 Pulse Ox 99 01/07/25 07:00 FiO2 Intake & Output 01/06/25 01/07/25 01/07/25 18:59 06:59 18:59 Intake Total 591 354 Output Total 775 1000 600 Balance -775 -409 -246 Weight 118.388 kg 92 kg Intake: Oral 591 354 Output: Urine 775 1000 600 Other: Voiding Method Urinal Urinal # Bowel Movements 2 - Exam Patient is awake, comfortable, no acute distress Examination of the heart S1 and S2 Examination of the lungs bilateral breath sounds are heard Abdomen is soft nontender Examination of lower extremities shows no significant edema - Labs CBC & Chem 7: 01/06/25 07:49 01/07/25 04:56 Labs: Abnormal Lab Results - Last 24 Hours (Table) 01/06/25 01/06/25 01/06/25 Range/Units 18:06 19:45 21:57 Potassium (3.5-5.5) mmol/L BUN (9.0-27.0) mg/dL Creatinine (0.6-1.5) mg/dL Est GFR (CKD-EPI) (>=60) BUN/Creatinine Ratio (12.00-20.00) Ratio Glucose (70-110) mg/dL POC Glucose (mg/dL) 323 H 349 H 323 H (70-110) mg/dL Calcium (8.7-10.3) mg/dL 01/07/25 01/07/25 01/07/25 Range/Units 04:56 05:39 11:41 Potassium 3.4 L (3.5-5.5) mmol/L BUN 88.6 H (9.0-27.0) mg/dL Creatinine 2.6 H (0.6-1.5) mg/dL Est GFR (CKD-EPI) 25 L (>=60) BUN/Creatinine Ratio 34.08 H (12.00-20.00) Ratio Glucose 205 H (70-110) mg/dL POC Glucose (mg/dL) 230 H 262 H (70-110) mg/dL Calcium 8.6 L (8.7-10.3) mg/dL Assessment and Plan Assessment: 1. Acute kidney injury secondary to ATN secondary to diuresis. Creatinine 2. 74. Kidney ultrasound dated December 20, 2024 showed no evidence of hydronephrosis with normal-sized kidneys. 2. Chronic kidney disease stage IIIb/IV with recent creatinine near 2 secondary to diabetic kidney disease and cardiorenal syndrome. 3. Chronic diastolic CHF. 4. Diabetes mellitus. 5. Hypertension with chronic kidney disease. Plan: Continue with IV fluids Repeat labs in a.m. [facility] Replace potassium
[2025-01-07] MEDS: POTASSIUM CHLORIDE ER 20 MEQ TAB.ER PO STA (15:23)
[2025-01-07 17:28] LABS: Glucose,Whole Blood 244 mg/dL (70-110)
[2025-01-07] MEDS: ACETAMINOPHEN TAB 325 MG TAB PO PRN (20:41)
[2025-01-07 22:00] LABS: Glucose,Whole Blood 249 mg/dL (70-110)
--- NOTE | 2025-01-08 01:16 | PN ---
PROGRESS NOTE DATE OF SERVICE: 01/07/2025 CHIEF COMPLAINT: CKD and uncontrolled diabetes. HISTORY OF PRESENT ILLNESS: This gentleman is awake and alert and has no complaints. The blood sugar is still quite high. He is being seen by Nephrology. PHYSICAL EXAMINATION: CHEST: Clear. ABDOMEN: Soft and nontender. IMPRESSION: 1. Diabetes. 2. Chronic kidney disease. PLAN: Increase long-acting insulin from 10 to 20 units a day along with sliding scale, and continue with IV fluids. MMODL / IJN: [id number] /
[2025-01-08 06:31] LABS: Glucose,Whole Blood 207 mg/dL (70-110)
[2025-01-08] MEDS: FAMOTIDINE 20 MG TAB PO SCH (09:03)
[2025-01-08 12:52] LABS: African American GFR (CKD) 32 (>60 ml/min/1.73 sqM); Anion Gap 6 mmol/L; Blood Urea Nitrogen 86 mg/dL (9-20); Calcium 8.3 mg/dL (8.4-10.2); Carbon Dioxide 28 mmol/L (22-30); Chloride 100 mmol/L (98-107); Glucose 226 mg/dL (74-99); Magnesium 2.2 mg/dL (1.6-2.3); Non-African American GFR(CKD) 28 (>60 ml/min/1.73 sqM); Potassium 4.7 mmol/L (3.5-5.1); Sodium 134 mmol/L (137-145)
[2025-01-08 13:12] LABS: Glucose,Whole Blood 263 mg/dL (70-110)
[2025-01-08 17:07] LABS: Glucose,Whole Blood 251 mg/dL (70-110)
--- NOTE | 2025-01-08 17:49 | P.PN ---
Subjective Patient is seen for follow-up for acute kidney injury and chronic kidney disease. Diuretics are on hold. Status post IV fluids. No significant complaints today. Serum creatinine 2.6 yesterday Objective - Vital Signs Vital signs: Vital Signs Temp 98.0 F 01/08/25 15:00 Pulse 81 01/08/25 15:00 Resp 16 01/08/25 15:00 BP 178/69 01/08/25 15:00 Pulse Ox 100 01/08/25 15:00 FiO2 Intake & Output 01/07/25 01/08/25 01/08/25 18:59 06:59 18:59 Intake Total 354 600 Output Total 600 800 655 Balance -246 -800 -55 Weight 99 kg Intake: Oral 354 600 Output: Urine 600 800 655 Other: Voiding Method Urinal - Exam Patient is awake, comfortable, no acute distress Examination of the heart S1 and S2 Examination of the lungs bilateral breath sounds are heard Abdomen is soft nontender Examination of lower extremities shows no significant edema - Labs CBC & Chem 7: 01/06/25 07:49 01/08/25 11:43 Labs: Abnormal Lab Results - Last 24 Hours (Table) 01/07/25 01/08/25 01/08/25 Range/Units 21:58 06:29 11:43 Sodium 134 L (137-145) mmol/L BUN 86 H (9-20) mg/dL Creatinine 2.21 H (0.66-1.25) mg/dL Glucose 226 H (74-99) mg/dL POC Glucose (mg/dL) 249 H 207 H (70-110) mg/dL Calcium 8.3 L (8.4-10.2) mg/dL 01/08/25 01/08/25 Range/Units 13:11 17:05 Sodium (137-145) mmol/L BUN (9-20) mg/dL Creatinine (0.66-1.25) mg/dL Glucose (74-99) mg/dL POC Glucose (mg/dL) 263 H 251 H (70-110) mg/dL Calcium (8.4-10.2) mg/dL Assessment and Plan Assessment: 1. Acute kidney injury secondary to ATN secondary to diuresis. Creatinine 2.74. Kidney ultrasound dated December 20, 2024 showed no evidence of hydronephrosis with normal-sized kidneys. 2. Chronic kidney disease stage IIIb/IV with recent creatinine near 2 secondary to diabetic kidney disease and cardiorenal syndrome. 3. Chronic diastolic CHF. 4. Diabetes mellitus. 5. Hypertension with chronic kidney disease. Plan: Continue with IV fluids Repeat labs in a.m. Continue off of [facility]
[2025-01-08 20:41] LABS: Glucose,Whole Blood 256 mg/dL (70-110)
--- NOTE | 2025-01-08 21:58 | PN ---
PROGRESS NOTE DATE OF SERVICE: 01/08/2025 CHIEF COMPLAINT: Renal failure and uncontrolled diabetes. HISTORY OF PRESENT ILLNESS: This gentleman is fairly stable, and he is being followed by Nephrology. Sugars are still slightly high. PHYSICAL EXAMINATION: CHEST: Clear. CARDIAC: Normal. ABDOMEN: Soft, nontender. IMPRESSION: 1. Uncontrolled type 2 diabetes. 2. Chronic kidney disease. 3. Chronic myeloid leukemia. PLAN: Continue with management for his renal failure and his elevated blood sugars. MMODL / IJN: [id number] /
[2025-01-09 06:16] LABS: Glucose,Whole Blood 143 mg/dL (70-110)
--- NOTE | 2025-01-09 11:27 | P.PN ---
Subjective Patient is seen for follow-up for acute kidney injury and chronic kidney disease. Diuretics are on hold. Maintained on IV fluids No significant complaints today. Serum creatinine 2.2 yesterday Objective - Vital Signs Vital signs: Vital Signs Temp 97.5 F L 01/09/25 07:00 Pulse 75 01/09/25 07:00 Resp 16 01/09/25 07:00 BP 131/62 01/09/25 07:00 Pulse Ox 98 01/09/25 07:00 FiO2 Intake & Output 01/08/25 01/09/25 01/09/25 18:59 06:59 18:59 Intake Total 1190 118 Output Total 655 1000 320 Balance 535 -1000 -202 Weight 95.5 kg Intake: Oral 1190 118 Output: Urine 655 1000 320 Other: Voiding Method Urinal - Exam Patient is awake, comfortable, no acute distress Examination of the heart S1 and S2 Examination of the lungs bilateral breath sounds are heard Abdomen is soft nontender Examination of lower extremities shows 1+ edema - Labs CBC & Chem 7: 01/06/25 07:49 01/08/25 11:43 Labs: Abnormal Lab Results - Last 24 Hours (Table) 01/08/25 01/08/25 01/08/25 Range/Units 11:43 13:11 17:05 Sodium 134 L (137-145) mmol/L BUN 86 H (9-20) mg/dL Creatinine 2.21 H (0.66-1.25) mg/dL Glucose 226 H (74-99) mg/dL POC Glucose (mg/dL) 263 H 251 H (70-110) mg/dL Calcium 8.3 L (8.4-10.2) mg/dL 01/08/25 01/09/25 Range/Units 20:39 06:15 Sodium (137-145) mmol/L BUN (9-20) mg/dL Creatinine (0.66-1.25) mg/dL Glucose (74-99) mg/dL POC Glucose (mg/dL) 256 H 143 H (70-110) mg/dL Calcium (8.4-10.2) mg/dL Assessment and Plan Assessment: 1. Acute kidney injury secondary to ATN secondary to diuresis. Creatinine 2.74. Kidney ultrasound dated December 20, 2024 showed no evidence of hydronephrosis with normal-sized kidneys. 2. Chronic kidney disease stage IIIb/IV with recent creatinine near 2 secondary to diabetic kidney disease and cardiorenal syndrome. 3. Chronic diastolic CHF. 4. Diabetes mellitus. 5. Hypertension with chronic kidney disease. Plan: Discontinue IV fluids Repeat labs in a.m. Continue off of [facility]
[2025-01-09 12:19] LABS: Glucose,Whole Blood 205 mg/dL (70-110)
[2025-01-09 13:13] VITALS: TEMP 97.6
--- NOTE | 2025-01-09 13:13 | DS ---
DISCHARGE SUMMARY CHIEF COMPLAINT: Acute on chronic renal failure and uncontrolled diabetes. HISTORY OF PRESENT ILLNESS AND PHYSICAL EXAMINATION: Details of this man's history and physical can be found in the initial workup. LABORATORY STUDIES: While he was in the hospital, he had laboratory studies, details of which can be found in the laboratory section of his chart. COURSE IN THE HOSPITAL: After admission, he was placed on bedrest, started on intravenous fluids and he was seen and followed by Nephrology. Blood sugars were brought down. His renal function was deemed to be fairly stable. He was improving and it was felt he could return to the [facility] on the . FINAL DIAGNOSES: 1. Uncontrolled insulin-dependent diabetes mellitus. 2. Nausea and vomiting. 3. Chronic kidney disease. 4. Dehydration. OPERATIONS: None. CONSULTATIONS: Nephrology. HEBERT / ETHEL: [id number] /
[2025-01-09 14:26] VITALS: BP 153/64; PULSE 72; RESP 16
[2025-01-09] MEDS: DARBEPOETIN ALFA 40 MCG/0.4 ML SYRINGE SQ SCH (14:27)
[2025-01-09 17:05] LABS: Glucose,Whole Blood 214 mg/dL (70-110)
== END 2025-01-09 19:19 ==
LOC: EC 07:35 → 6NMEDSUR 08:48
PROVIDERS: ADMIT Family Medicine; ATTEND Family Medicine
DX: N17.0 Acute kidney failure with tubular necrosis (principal); T50.2X5A Adverse effect of carbonic-anhydrase inhibitors, benzothiadiazides and other diuretics, initial encounter; E86.0 Dehydration; E11.65 Type 2 diabetes mellitus with hyperglycemia; I13.0 Hypertensive heart and chronic kidney disease with heart failure and stage 1 through stage 4 chronic kidney disease, or unspecified chronic kidney disease; N18.4 Chronic kidney disease, stage 4 (severe); I50.32 Chronic diastolic (congestive) heart failure; E11.22 Type 2 diabetes mellitus with diabetic chronic kidney disease; C92.10 Chronic myeloid leukemia, BCR/ABL-positive, not having achieved remission; Z79.890 Hormone replacement therapy; Z79.4 Long term (current) use of insulin; Z79.899 Other long term (current) drug therapy; Z88.1 Allergy status to other antibiotic agents; Z88.5 Allergy status to narcotic agent; Z88.2 Allergy status to sulfonamides; Z88.8 Allergy status to other drugs, medicaments and biological substances; Z91.048 Other nonmedicinal substance allergy status
CPT/HCPCS: 96361 ×4; 96374; 99285; 51798; 36415; 80053; 80048 ×2; 83735 ×2; 85025; 83036; G0378 ×4; J2405

== ENCOUNTER 2025-01-25 14:59 | Inpatient (IN) | payer OTHER, MEDICARE ==
--- NOTE | 2025-01-25 15:28 | ED ---
General Adult HPI - General Chief complaint: Recheck/Abnormal Lab/Rx Stated complaint: Abnormal labs Time Seen by Provider: 01/25/25 15:08 Source: patient, EMS, RN notes reviewed, old records reviewed Mode of arrival: EMS - History of Present Illness Initial comments: Patient is a 74-year-old male who presents from his nursing facility for evaluation of abnormal laboratory studies. Patient has a history of CKD, CHF. Has noticed worsening cough that is nonproductive lately, and has had decreased urine output over the last few days. Patient does have a history of leukemia and is on oral pills for this. Follows up with Dr. Kidd. He does have a history of asthma as well is hypertension and hyperlipidemia. Denies any fevers or chills. States that when he gets in coughing fits he does have episodes of posttussive emesis. Denies any chest pain. Denies any abdominal pain. States he just feels somewhat off. Presents for further evaluation at this time. Apparently patient had low potassium, sodium as well as worsening renal function on outpatient labs - Related Data Home Medications Medication Instructions Recorded Confirmed Famotidine 20 mg PO BID@0800,199904/12/23 01/25/25 Acetaminophen Tab [Tylenol] 650 mg PO Q6H PRN MDD 3gm 03/26/24 01/25/25 Imatinib Mesylate 300 mg PO HS 03/26/24 01/25/25 Magnesium Oxide [Magox 400] 400 mg PO DAILY@0800 03/26/24 01/25/25 Tamsulosin [Flomax] 0.4 mg PO DAILY@0800 03/26/24 01/25/25 Baclofen 5 mg PO Q8H PRN 04/26/24 01/25/25 Insulin Glargine,Hum.rec.anlog 20 units PO HS 05/21/24 01/25/25 [Lantus Solostar Pen] Ergocalciferol (Vitamin D2) 1,250 mcg PO MO@0800 11/15/24 01/25/25 [Drisdol (50,000 Iu)] Insulin Aspart (Niacinamide) See Protocol SQ ACHS@06,11,16,20 11/15/24 01/25/25 [Fiasp 100 Unit/ml Flextouch Pen] L.acidoph,Paracasei, B.lactis 1 cap PO BID@0800,1600 11/15/24 01/25/25 [Probiotic] allopurinoL [Zyloprim] 300 mg PO HS@199911/15/24 01/25/25 amLODIPine [Norvasc] 10 mg PO DAILY@0800 11/15/24 01/25/25 Furosemide [Lasix] 40 mg PO BID@0800,1600 12/20/24 01/25/25 Ondansetron [Zofran] 4 mg PO Q6H PRN 12/20/24 01/25/25 Sucralfate [Carafate] 1 gm PO ACHS@06,11,16,12/20/24 01/25/25 metOLazone [Zaroxolyn] 2.5 mg PO DAILY@0800 12/20/24 01/25/25 Epoetin Bo-Epbx [Retacrit] 5,094 units SQ DIRECTED 01/06/25 01/25/25 Sodium Zirconium Cyclosilicate 10 gm PO DAILY@0800 01/06/25 01/25/25 [Lokelma] Insulin Aspart (Niacinamide) 4 units SQ TID-W/MEALS@07,,01/25/25 01/25/25 [Fiasp 100 Unit/ml Flextouch Pen] Levothyroxine Sodium [Synthroid] 50 mcg PO DAILY@0600 01/25/25 01/25/25 hydrALAZINE HCL 50 mg PO BID@0800,199901/25/25 01/25/25 Allergies Allergy/AdvReac Type Severity Reaction Status Date / Time TACOS Inhibitors Allergy Unknown Verified 01/25/25 16:05 codeine Allergy Unknown Verified 01/25/25 16:05 lisinopril Allergy Unknown Verified 01/25/25 16:05 oxycodone Allergy Unknown Verified 01/25/25 16:05 sulfamethoxazole Allergy Unknown Verified 01/25/25 16:05 [From Bactrim] trimethoprim [From Bactrim] Allergy Unknown Verified 01/25/25 16:05 TIDE LAUNDRY SOAP Allergy Severe Rash/Hives Uncoded 01/25/25 15:08 Review of Systems ROS Statement: Those systems with pertinent positive or pertinent negative responses have been documented in the HPI. Review of Systems: CONST: Denies fever EYES: Denies blurry vision ENT: Denies nasal congestion. Endorses cough C/V: Denies Chest pain RESP: Denies shortness of breath GI: Denies abdominal pain : Denies dysuria SKIN: Denies rash. MSK: Denies joint pain. NEURO: Denies headache ROS Other: All systems not noted in ROS Statement are negative. 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; IDDM type II, pt states he occasionally has hypoglycemia during middle of night, arthritis bilateral hands and occasionally in bilateral knees, gout R foot, WILLAM with CPAP use, chronic kidney disease stage 4 with baseline creatinine near 2 due to diabetic kidney disease and chronic interstitial nephritis, anemia History of Any Multi-Drug Resistant Organisms: ESBL Date of last positivie culture/infection: 11/15/24 MDRO Source:: urine Past Surgical History: Back Surgery, Cholecystectomy, Hernia Repair Additional Past Surgical History / Comment(s): 09/2019 bone marrow biopsy, incisional hernia, colonoscopy with benign polyps. Right cataract removal with IOL implant. PARATHYROIDECTOMY - July 2023 Past Anesthesia/Blood Transfusion Reactions: No Reported Reaction Past Psychological History: No Psychological Hx Reported Smoking Status: Never smoker Past Alcohol Use History: None Reported Past Drug Use History: None Reported - Past Family History Father Family Medical History: Diabetes Mellitus Additional Family Medical History / Comment(s): Father is 97 yrs old. Mother Family Medical History: Dementia Additional Family Medical History / Comment(s): Mother of dementia at the age of 85yrs. General Exam - General Exam Comments Initial Comments: General: Appears in no acute distress. HEAD: Normal with no signs of head trauma. EYES: EOMI ENT: Hearing grossly intact, normal oropharynx. RESPIRATORY: Clear breath sounds bilaterally. No wheezes, rales, or rhonchi. No hypoxia. No increased work of breathing. C/V: Regular rate and rhythm. S1 and S2 auscultated, no significant lower extremity edema, peripheral pulses 2+ and intact throughout ABD: Abd is soft, nontender, nondistended EXT: No obvious deformity SKIN: No rashes or lesions observed on exposed skin. NEURO: Alert and oriented x 4. Course Vital Signs 01/25/25 01/25/25 01/25/25 15:01 16:48 16:57 Temperature 98.3 F Pulse Rate 93 89 92 Respiratory 16 Rate Blood Pressure 124/60 O2 Sat by Pulse 94 L Oximetry 01/25/25 01/25/25 19:06 22:06 Temperature Pulse Rate 94 89 Respiratory 18 16 Rate Blood Pressure 155/58 134/68 O2 Sat by Pulse 96 95 Oximetry Medical Decision Making - Medical Decision Making Was pt. sent in by a medical professional or institution (, PA, MANAGER OF SALES, urgent care, hospital, or intermediate...) When possible be specific @ -No Did you speak to anyone other than the patient for history (EMS, parent, family, police, friend...)? What history was obtained from this source @ -No Did you review nursing and triage notes (agree or disagree)? Why? @ -I reviewed and agree with nursing and triage notes Were old charts reviewed (outside hosp., previous admission, EMS record, old EKG, old radiological studies, urgent care reports/EKG's, intermediate records)? Report findings @ -Reviewed laboratory studies obtained outpatient that resulted from earlier today that did show hypokalemia, hyponatremia. Also revealed worsening renal function. Differential Diagnosis (chest pain, altered mental status, abdominal pain women, abdominal pain men, vaginal bleeding, weakness, fever, dyspnea, syncope, headache, dizziness, GI bleed, back pain, seizure, CVA, palpatations, mental health, musculoskeletal)? @ -Electrolyte abnormalities, dehydration, CKD, WENDI, CHF. This list is not all inclusive. EKG interpreted by me (3pts min.). @ -As above X-rays interpreted by me (1pt min.). @ -Chest x-ray shows no obvious acute findings. CT interpreted by me (1pt min.). @ -None done U/S interpreted by me (1pt. min.). @ -Ultrasound of kidneys unremarkable. Bladder was obscured by bowel gas. What testing was considered but not performed or refused? (CT, X-rays, U/S, labs)? Why? @ -None What meds were considered but not given or refused? Why? @ -None Did you discuss the management of the patient with other professionals (professionals i.e. , PA, MANAGER OF SALES, lab, RT, psych nurse, high school social studies tutor, care transitions nurse, teacher, pharmaceutical officer, nurse case manager)? Give summary @ -Discussed with Dr. Castellano who accepted the admission. Was smoking cessation discussed for >3mins.? @ -No Was critical care preformed (if so, how long)? @ -Yes, 32 minutes. Were there social determinants of health that impacted care today? How? (Homelessness, low income, unemployed, alcoholism, drug addiction, transportation, low edu. Level, literacy, decrease access to med. care, long-term, rehab)? @ -No Was there de-escalation of care discussed even if they declined (Discuss DNR or withdrawal of care, Hospice)? DNR status @ -No What co-morbidities impacted this encounter? (DM, HTN, Smoking, COPD, CAD, Cancer, CVA, ARF, Chemo, Hep., AIDS, mental health diagnosis, sleep apnea, morbid obesity)? @ -CKD, CHF Was patient admitted / discharged? Hospital course, mention meds given and route, prescriptions, significant lab abnormalities, going to OR and other pertinent info. @ -Patient presents emergency department complaining of decreased urinary output, as well as abnormal outpatient lab studies. Will repeat lab studies, obtain viral swabs, chest x-ray, renal ultrasound. He will be given a breathing treatment as well to see if that helps however exam is relatively unremarkable with no significant wheezing. Patient was in agreement this plan. EKG showed no signs of acute ischemia.Imaging unremarkable. Patient's laboratory studies returned remarkable for leukocytosis of 26.7. Patient has an elevated BUN and creatinine of 115 and 3.61 in the setting of CKD. This is worse than baseline. Patient is hyponatremic and hypochloremic at 128/87. Patient is hypokalemic to 2.8. BNP is slightly elevated. Urinalysis remarkable for UTI. Viral swabs negative. Patient did have urinary retention, as a Garcia catheter was placed for strict I's and O's and did have over 500 cc of urine output after patient was unable to provide a urine sample. I discussed results with the patient. Appears he has WENDI on CKD likely secondary to urinary retention and UTI. Patient is also hypokalemic and hyponatremic. Patient will be admitted to the hospital. Does not meet sepsis criteria at this time but patient was started on IV Rocephin. Patient will be given gentle fluid hydration. He will be admitted. Patient was in agreement this plan. Nephrology consulted. Urology consulted. I spoke with Dr. Castellano the patient's PCP who accepted the admission. Undiagnosed new problem with uncertain prognosis? @ -No Drug Therapy requiring intensive monitoring for toxicity (Heparin, Nitro, Insulin, Cardizem)? @ -No Were any procedures done? @ -No Diagnosis/symptom? @ -Urinary retention, hypokalemia, UTI, WENDI Acute, or Chronic, or Acute on Chronic? @ -Acute Uncomplicated (without systemic symptoms) or Complicated (systemic symptoms)? @ -Complicated Side effects of treatment? @ -None Exacerbation, Progression, or Severe Exacerbation] @ -No Poses a threat to life or bodily function? @ -yes - Lab Data Result diagrams: 01/25/25 15:34 01/25/25 15:34 Lab Results 01/25/25 01/25/25 01/25/25 Range/Units 15:34 15:34 15:34 WBC 26.7 H (3.8-10.6) k/uL RBC 3.79 L (4.30-5.90) m/uL Hgb 11.8 L (13.0-17.5) gm/dL Hct 36.6 L (39.0-53.0) % MCV 96.7 (80.0-100.0) fL MCH 31.1 (25.0-35.0) pg MCHC 32.2 (31.0-37.0) g/dL RDW 14.1 (11.5-15.5) % Plt Count 241 (150-450) k/uL MPV 8.1 Neutrophils % 91 % Lymphocytes % 4 % Monocytes % 3 % Eosinophils % 0 % Basophils % 0 % Neutrophils # 24.3 H (1.3-7.7) k/uL Lymphocytes # 1.1 (1.0-4.8) k/uL Monocytes # 0.9 (0-1.0) k/uL Eosinophils # 0.1 (0-0.7) k/uL Basophils # 0.0 (0-0.2) k/uL Sodium 128 L (137-145) mmol/L Potassium 2.8 L (3.5-5.1) mmol/L Chloride 87 L (98-107) mmol/L Carbon Dioxide 30 (22-30) mmol/L Anion Gap 11 mmol/L BUN 115 H* (9-20) mg/dL Creatinine 3.61 H (0.66-1.25) mg/dL Est GFR (CKD-EPI)AfAm 18 (>60 ml/min/1.73 sqM) Est GFR (CKD-EPI)NonAf 15 (>60 ml/min/1.73 sqM) Glucose 182 H (74-99) mg/dL Calcium 8.6 (8.4-10.2) mg/dL Magnesium 2.1 (1.6-2.3) mg/dL Total Bilirubin 0.6 (0.2-1.3) mg/dL AST 23 (17-59) U/L ALT 19 (4-49) U/L Alkaline Phosphatase 152 H (38-126) U/L NT-Pro-B Natriuret Pep 1640 pg/mL Total Protein 6.7 (6.3-8.2) g/dL Albumin 3.1 L (3.5-5.0) g/dL Urine Color Urine Appearance (Clear) Urine pH (5.0-8.0) Ur Specific [place] (1.001-1.035) Urine Protein (Negative) Urine Glucose (UA) (Negative) Urine Ketones (Negative) Urine Blood (Negative) Urine Nitrite (Negative) Urine Bilirubin (Negative) Urine Urobilinogen (<2.0) mg/dL Ur Leukocyte Esterase (Negative) Urine RBC (0-5) /hpf Urine WBC (0-5) /hpf Amorphous Sediment (None) /hpf Urine Mucus (None) /hpf Influenza Type A (PCR) Not Detected (Not Detectd) Influenza Type B (PCR) Not Detected (Not Detectd) RSV (PCR) Not Detected (Not Detectd) SARS-CoV-2 (PCR) Not Detected (Not Detectd) 01/25/25 Range/Units 16:47 WBC (3.8-10.6) k/uL RBC (4.30-5.90) m/uL Hgb (13.0-17.5) gm/dL Hct (39.0-53.0) % MCV (80.0-100.0) fL MCH (25.0-35.0) pg MCHC (31.0-37.0) g/dL RDW (11.5-15.5) % Plt Count (150-450) k/uL MPV Neutrophils % % Lymphocytes % % Monocytes % % Eosinophils % % Basophils % % Neutrophils # (1.3-7.7) k/uL Lymphocytes # (1.0-4.8) k/uL Monocytes # (0-1.0) k/uL Eosinophils # (0-0.7) k/uL Basophils # (0-0.2) k/uL Sodium (137-145) mmol/L Potassium (3.5-5.1) mmol/L Chloride (98-107) mmol/L Carbon Dioxide (22-30) mmol/L Anion Gap mmol/L BUN (9-20) mg/dL Creatinine (0.66-1.25) mg/dL Est GFR (CKD-EPI)AfAm (>60 ml/min/1.73 sqM) Est GFR (CKD-EPI)NonAf (>60 ml/min/1.73 sqM) Glucose (74-99) mg/dL Calcium (8.4-10.2) mg/dL Magnesium (1.6-2.3) mg/dL Total Bilirubin (0.2-1.3) mg/dL AST (17-59) U/L ALT (4-49) U/L Alkaline Phosphatase (38-126) U/L NT-Pro-B Natriuret Pep pg/mL Total Protein (6.3-8.2) g/dL Albumin (3.5-5.0) g/dL Urine Color Yellow Urine Appearance Turbid (Clear) Urine pH 5.5 (5.0-8.0) Ur Specific [place] 1.017 (1.001-1.035) Urine Protein 1+ H (Negative) Urine Glucose (UA) Negative (Negative) Urine Ketones Negative (Negative) Urine Blood Moderate H (Negative) Urine Nitrite Negative (Negative) Urine Bilirubin Negative (Negative) Urine Urobilinogen <2.0 (<2.0) mg/dL Ur Leukocyte Esterase Large H (Negative) Urine RBC 100 H (0-5) /hpf Urine WBC >182 H (0-5) /hpf Amorphous Sediment Occasional H (None) /hpf Urine Mucus Occasional H (None) /hpf Influenza Type A (PCR) (Not Detectd) Influenza Type B (PCR) (Not Detectd) RSV (PCR) (Not Detectd) SARS-CoV-2 (PCR) (Not Detectd) - EKG Data -: EKG Interpreted by Me EKG Comments: 12-lead Electrocardiogram Interpretation Note EKG was reviewed and interpreted by myself. 12-lead ECG performed at 1518 is interpreted by me as revealing normal sinus rhythm at a rate of 91 beats per minute. [place] is normal. [place] interval is 192 ms, QRS durations 133 ms, QTc is 42 2 ms.. There were no ST or T wave abnormalities to suggest myocardial ischemia or injury. R wave progression across the precordium was satisfactory. By my interpretation this EKG is non-diagnostic for acute ischemia. Critical Care Time Critical Care Time: Yes Total Critical Care Time: 32 Disposition Clinical Impression: UTI (urinary tract infection), Urinary retention, Hypokalemia, WENDI (acute kidney injury) Disposition[facility] Condition: Stable Time of Disposition: 17:39
[2025-01-25 15:45] LABS: Basophils % (A) 0 %; Eosinophils # (A) 0.1 k/uL (0-0.7); Eosinophils % (A) 0 %; HCT 36.6 % (39.0-53.0); HGB 11.8 gm/dL (13.0-17.5); Lymphocytes # (A) 1.1 k/uL (1.0-4.8); Lymphocytes % (A) 4 %; MCH 31.1 pg (25.0-35.0); MCHC 32.2 g/dL (31.0-37.0); MCV 96.7 fL (80.0-100.0); Mean Platelet Volume 8.1; Monocytes # (A) 0.9 k/uL (0-1.0); Monocytes % (A) 3 %; Neutrophils # (A) 24.3 k/uL (1.3-7.7); Neutrophils % (A) 91 %; Platelet Count 241 k/uL (150-450); RBC 3.79 m/uL (4.30-5.90); RDW 14.1 % (11.5-15.5); WBC 26.7 k/uL (3.8-10.6)
--- NOTE | 2025-01-25 15:55 | XR ---
EXAMINATION TYPE: XR chest 2V DATE OF EXAM: 01/25/2025 CLINICAL INDICATION: Male, 74 years old with history of cough, TECHNIQUE: Frontal and lateral views of the chest are obtained. COMPARISON: Chest x-ray December 19, 2024 FINDINGS: Persistent low lung volumes. There is no focal air space opacity, pleural effusion, or pne umothorax seen. Persistent cardiomegaly. The osseous structures are intact. IMPRESSION: Persistent low lung volumes and cardiomegaly without new suspicious acute peripheral pulm onary infiltrate. [facility], , 01/25/2025 3:53 PM
[2025-01-25 16:02] LABS: ALT 19 U/L (4-49); AST 23 U/L (17-59); African American GFR (CKD) 18 (>60 ml/min/1.73 sqM); Albumin 3.1 g/dL (3.5-5.0); Alkaline Phosphatase 152 U/L (38-126); Anion Gap 11 mmol/L; Calcium 8.6 mg/dL (8.4-10.2); Carbon Dioxide 30 mmol/L (22-30); Chloride 87 mmol/L (98-107); Glucose 182 mg/dL (74-99); Magnesium 2.1 mg/dL (1.6-2.3); Non-African American GFR(CKD) 15 (>60 ml/min/1.73 sqM); Potassium 2.8 mmol/L (3.5-5.1); Sodium 128 mmol/L (137-145); Total Bilirubin 0.6 mg/dL (0.2-1.3); Total Protein 6.7 g/dL (6.3-8.2)
[2025-01-25 16:11] LABS: NT-Pro-B-Type Natriuretic Pept 1640 pg/mL
[2025-01-25 16:19] LABS: Influenza A Not Detected (Not Detectd); Influenza B Not Detected (Not Detectd); RSV Not Detected (Not Detectd)
[2025-01-25] MEDS: IPRATROPIUM-ALBUTEROL 3 ML NEB INHALATION STA (16:47)
[2025-01-25 16:48] LABS: Blood Urea Nitrogen 115 mg/dL (9-20)
--- NOTE | 2025-01-25 17:03 | US ---
EXAMINATION TYPE: US kidneys/renal and bladder DATE OF EXAM: 01/25/2025 COMPARISON: NONE CLINICAL INDICATION: Male, 74 years old with history of wendi on ckd. decreased urine output; Decreased urine, WENDI/CKD TECHNIQUE: Grayscale imaging of the bilateral kidneys and urinary bladder: FINDINGS: EXAM MEASUREMENTS: Right Kidney: 11.8x5.0x4.6 cm Left Kidney: 10.5x5.3x5.0 cm Right Kidney: No hydronephrosis or masses seen, 0.9cm focus again seen . No shadowing is evident Left Kidney: No hydronephrosis or masses seen Bladder: obscured by bowel There is no evidence for hydronephrosis at this point in time. No nephrolithiasis is seen. No edgard s are identified. The urinary bladder is anechoic. Exam limited by bowel and habitus IMPRESSION: 1. Stable echogenic foci inferior pole right kidney. [facility], , 01/25/2025 5:00 PM
[2025-01-25 17:04] LABS: Amorphous Sediment,Urine Occasional /hpf; Appearance,Urine Turbid (Clear); Bilirubin,Urine Negative (Negative); Blood,Urine Moderate (Negative); Color,Urine Yellow; Glucose,Urine (UA) Negative (Negative); Ketones,Urine Negative (Negative); Leukocyte Esterase,Urine Large (Negative); Mucus,Urine Occasional /hpf; Nitrite,Urine Negative (Negative); PH, Urine 5.5 (5.0-8.0); Protein,Urine 1+ (Negative); RBC,Urine 100 /hpf (0-5); Specific Gravity,Urine 1.017 (1.001-1.035); Urobilinogen,Urine <2.0 mg/dL (<2.0); WBC,Urine >182 /hpf (0-5)
[2025-01-25] MEDS ORDERED: Potassium Replacement Protocol 1 EACH MISC MISCELLANE PRN (17:16)
[2025-01-25] MEDS ORDERED: NALOXONE 0.4 MG/ML 1 ML VIAL IV PRN (17:21)
[2025-01-25] MEDS ORDERED: ACETAMINOPHEN TAB 325 MG TAB PO PRN (17:21)
[2025-01-25] MEDS: SODIUM CHLORIDE 0.9% 1,000 ML IV STA (18:42)
[2025-01-25] MEDS: POTASSIUM CHLORIDE ER 20 MEQ TAB.ER PO SCH (19:04)
[2025-01-26] MEDS: EPOETIN ALFA EPBX SQ SCH (00:21)
[2025-01-26 00:25] LABS: Glucose,Whole Blood 220 mg/dL (70-110)
[2025-01-26] MEDS: INSULIN GLARGINE (LANTUS) 100 UNIT/ML SYR SQ SCH (00:26)
[2025-01-26] MEDS: INSULIN ASPART SQ SCH (06:17)
[2025-01-26] MEDS: [UNRECOGNIZED DRUG - OTHER] SQ SCH (06:17)
[2025-01-26] MEDS: LEVOTHYROXINE 50 MCG TAB PO SCH (06:19)
[2025-01-26 06:34] LABS: Glucose,Whole Blood 136 mg/dL (70-110)
[2025-01-26] MEDS ORDERED: FUROSEMIDE 40 MG TAB PO SCH (08:00)
[2025-01-26] MEDS ORDERED: FAMOTIDINE 20 MG TAB PO SCH (08:00)
[2025-01-26] MEDS ORDERED: metOLazone 2.5 MG TAB PO SCH (08:00)
[2025-01-26] MEDS ORDERED: ONDANSETRON ODT 4 MG TAB PO PRN (08:53)
[2025-01-26] MEDS: FAMOTIDINE 20 MG TAB PO SCH (09:06)
[2025-01-26] MEDS: MAGNESIUM OXIDE 400 MG TAB PO SCH (09:06)
[2025-01-26] MEDS: TAMSULOSIN 0.4 MG CAP.ER.24H PO SCH (09:06)
[2025-01-26] MEDS: hydrALAZINE HCL 50 MG TAB PO SCH (09:06)
[2025-01-26] MEDS: amLODIPine 10 MG TAB PO SCH (09:06)
[2025-01-26 09:44] LABS: HCT 32.4 % (39.6-50.0); HGB 10.6 g/dL (13.0-17.0); MCH 31.2 pg (27.0-32.0); MCHC 32.7 g/dL (32.0-37.0); MCV 95.3 FL (80.0-97.0); Mean Platelet Volume 11.3 FL (9.5-12.2); NRBC Per 100 WBC 0 X 10*3/uL (0.00-0.01); Platelet Count 252 X 10*3/uL (140-440); RDW 13.9 % (11.5-14.5); WBC 27.92 X 10*3/uL (4.50-10.00)
[2025-01-26 09:54] LABS: Chloride 91 mmol/L (96-109); Glucose 140 mg/dL (70-110); Potassium 3.1 mmol/L (3.5-5.5); Sodium 132 mmol/L (135-145)
[2025-01-26 09:55] LABS: ALT 17 U/L (10-49); AST 22 U/L (14-35); Albumin 2.7 g/dL (3.8-4.9); Albumin/Globulin Ratio 0.82 Ratio (1.60-3.17); Alkaline Phosphatase 146 U/L (41-126); Calcium 8.3 mg/dL (8.7-10.3); Carbon Dioxide 27.9 mmol/L (21.6-31.8); Globulin 3.3 g/dL (1.6-3.3); Total Bilirubin 0.3 mg/dL (0.3-1.2)
[2025-01-26 10:20] LABS: Basophils # (A) 0.09 X 10*3/uL (0.00-0.10); Basophils % (A) 0.3 %; Eosinophils # (A) 0.07 X 10*3/uL (0.04-0.35); Eosinophils % (A) 0.3 %; Lymphocytes # (A) 1.66 X 10*3/uL (0.90-5.00); Lymphocytes % (A) 5.9 %; Monocytes # (A) 2.23 X 10*3/uL (0.20-1.00); Neutrophils # (A) 23.65 X 10*3/uL (1.80-7.70); Neutrophils % (A) 84.7 %
--- NOTE | 2025-01-26 12:07 | HP ---
HISTORY AND PHYSICAL CHIEF COMPLAINT: Nausea, vomiting, stage 5 CKD, CML. HISTORY OF PRESENT ILLNESS: This gentleman has been having episodes of nausea and vomiting over the last 4 or 5 days. He also has become weak and delirious. He has numerous other health issues including diabetes, states 5 CKD, urinary retention, chronic cystitis, congestive heart failure, hypokalemia, and CML. He continues to want total care including even dialysis. His white count has recently risen suggesting that Gleevec. REVIEW OF SYSTEMS: He is nauseated. He is still awake and alert. Past medical history, family history and personal and social histories are otherwise unremarkable and noncontributory or unchanged. PHYSICAL EXAMINATION: GENERAL: On admission reveals he is dehydrated, but he is awake and alert. CHEST: Clear. ABDOMEN: Soft, nontender. CARDIAC: Unremarkable. IMPRESSION: 1. Stage 5 CKD. 2. Intractable nausea and vomiting. 3. Congestive heart failure. 4. Diabetes mellitus. 5. Urinary retention. 6. Urinary tract infection. 7. Electrolyte imbalance. PLAN: Bed rest, IV fluids, and refer to Nephrology and Oncology. MMODL / IJN: [id number] /
--- NOTE | 2025-01-26 12:09 | P.NPCON ---
History of Present Illness - Reason for Consult acute renal failure, chronic renal failure - History of Present Illness Reason for consultation: Acute kidney injury on chronic kidney disease History of present illness: Patient is a 74-year-old male seen in renal consultation for acute kidney injury on chronic kidney disease. Patient has chronic kidney disease stage IV with baseline creatinine in the range of 2-2.5. Creatinine up to 4.0 today. Patient was sent to the hospital due to abnormal labs. He also complains of a cough this been going on for several weeks now. Additionally he has been having episodes of vomiting for the last 2 weeks. He has been receiving Lasix outpatient but is unsure of the dose or frequency. He was also scheduled to receive metolazone this admission. He was noted to have urinary retention and now has a Garcia catheter. Nonoliguric. He is receiving IV fluids with normal saline at 50 cc an hour. Patient has history of diabetes. Also has history of diastolic CHF. Denies history of coronary artery disease. No hydronephrosis noted on kidney ultrasound. No gross hematuria or dysuria. Vital signs are stable. General: No acute distress. HEENT: Head exam is unremarkable. LUNGS: No audible rhonchi or wheezes. HEART: Rate and Rhythm are regular. ABDOMEN: Nontender. EXTREMITITES: No edema. 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; IDDM type II, pt states he occasionally has hypoglycemia during middle of night, arthritis bilateral hands and occasionally in bilateral knees, gout R foot, WILLAM with CPAP use, chronic kidney disease stage 4 with baseline creatinine near 2 due to diabetic kidney disease and chronic interstitial nephritis, anemia History of Any Multi-Drug Resistant Organisms: ESBL Date of last positivie culture/infection: 11/15/24 MDRO Source:: urine Past Surgical History: Back Surgery, Cholecystectomy, Hernia Repair Additional Past Surgical History / Comment(s): 09/2019 bone marrow biopsy, incisional hernia, colonoscopy with benign polyps. Right cataract removal with IOL implant. PARATHYROIDECTOMY - July 2023 Past Anesthesia/Blood Transfusion Reactions: No Reported Reaction Past Psychological History: No Psychological Hx Reported Smoking Status: Never smoker Past Alcohol Use History: None Reported Past Drug Use History: None Reported - Past Family History Father Family Medical History: Diabetes Mellitus Additional Family Medical History / Comment(s): Father is 97 yrs old. Mother Family Medical History: Dementia Additional Family Medical History / Comment(s): Mother of dementia at the age of 85yrs. Medications and Allergies Home Medications Medication Instructions Recorded Confirmed Type Famotidine 20 mg PO BID@0800,199904/12/23 01/25/25 History Acetaminophen Tab [Tylenol] 650 mg PO Q6H PRN MDD 3gm 03/26/24 01/25/25 History Imatinib Mesylate 300 mg PO HS 03/26/24 01/25/25 History Magnesium Oxide [Magox 400] 400 mg PO DAILY@0800 03/26/24 01/25/25 History Tamsulosin [Flomax] 0.4 mg PO DAILY@0800 03/26/24 01/25/25 History Baclofen 5 mg PO Q8H PRN 04/26/24 01/25/25 History Insulin Glargine,Hum.rec.anlog 20 units PO HS 05/21/24 01/25/25 History [Lantus Solostar Pen] Ergocalciferol (Vitamin D2) 1,250 mcg PO MO@00 11/15/24 01/25/25 History [Drisdol (50,000 Iu)] Insulin Aspart (Niacinamide) See Protocol SQ ACHS@06,,,11/15/24 01/25/25 History [Fiasp 100 Unit/ml Flextouch Pen] L.acidoph,Paracasei, B.lactis 1 cap PO BID@0800,1600 11/15/24 01/25/25 History [Probiotic] allopurinoL [Zyloprim] 300 mg PO HS@199911/15/24 01/25/25 History amLODIPine [Norvasc] 10 mg PO DAILY@0800 11/15/24 01/25/25 History Furosemide [Lasix] 40 mg PO BID@0800,1600 12/20/24 01/25/25 History Ondansetron [Zofran] 4 mg PO Q6H PRN 12/20/24 01/25/25 History Sucralfate [Carafate] 1 gm PO ACHS@06,11,, 12/20/24 01/25/25 History metOLazone [Zaroxolyn] 2.5 mg PO DAILY@0800 12/20/24 01/25/25 History Epoetin Bo-Epbx [Retacrit] 5,094 units SQ DIRECTED 01/06/25 01/25/25 History Sodium Zirconium Cyclosilicate 10 gm PO DAILY@0800 01/06/25 01/25/25 History [Lokelma] Insulin Aspart (Niacinamide) 4 units SQ TID-W/MEALS@,,01/25/25 01/25/25 History [Fiasp 100 Unit/ml Flextouch Pen] Levothyroxine Sodium [Synthroid] 50 mcg PO DAILY@0600 01/25/25 01/25/25 History hydrALAZINE HCL 50 mg PO BID@0800,199901/25/25 01/25/25 History Allergies Allergy/AdvReac Type Severity Reaction Status Date / Time TACOS Inhibitors Allergy Unknown Verified 01/25/25 16:05 codeine Allergy Unknown Verified 01/25/25 16:05 lisinopril Allergy Unknown Verified 01/25/25 16:05 oxycodone Allergy Unknown Verified 01/25/25 16:05 sulfamethoxazole Allergy Unknown Verified 01/25/25 16:05 [From Bactrim] trimethoprim [From Bactrim] Allergy Unknown Verified 01/25/25 16:05 TIDE LAUNDRY SOAP Allergy Severe Rash/Hives Uncoded 01/25/25 15:08 Physical Exam Vitals: Vital Signs Temp Pulse Pulse Resp BP BP Pulse Ox 01/26/25 07:20 98.1 F 84 17 128/66 100 01/26/25 01:04 98.5 F 87 15 130/62 95 01/25/25 22:39 91 17 01/25/25 22:31 98.6 F 91 17 115/64 97 01/25/25 22:06 89 16 134/68 95 01/25/25 19:06 94 18 155/58 96 01/25/25 16:57 92 01/25/25 16:48 89 01/25/25 15:01 98.3 F 93 16 124/60 94 L Intake and Output 04/04/25 04/05/25 04/05/25 22:59 06:59 14:59 Intake Total 1080 1080 120 Output Total 1650 325 Balance -570 755 120 Intake: Oral 1080 1080 120 Output: Urine 1650 325 Uretheral (Garcia) 550 Other: Voiding Method Incontinent Indwelling Catheter # Bowel Movements 2 1 Weight 116.12 kg Results - Lab Results Most recent lab results Calcium 8.3 mg/dL (8.7-10.3) L 01/26/25 06:26 Magnesium 2.1 mg/dL (1.6-2.3) 01/25/25 15:34 01/26/25 06:20 01/26/25 06:26 Assessment and Plan Plan: Assessment: 1. Acute kidney injury secondary to ATN secondary to overdiuresis and urinary retention. Creatinine 4.0 today. No hydronephrosis noted on kidney ultrasound. 2. Chronic kidney disease stage IV with baseline creatinine 2-2.5 secondary to diabetic kidney disease. 3. Hypokalemia from diuresis. 4. Hypovolemic hyponatremia improved with IV hydration. 5. Chronic diastolic CHF. 6. Hypertension with chronic kidney disease. Controlled. 7. Urinary retention status post Garcia catheter placement. On Flomax. Urology consulted. Plan: Stop all diuretics. Maintain gentle IV hydration. Replace potassium. Maintain Garcia catheter. Thank you for the consultation. I will continue to follow the patient with you during his hospital stay.
--- NOTE | 2025-01-26 12:22 | PN ---
PROGRESS NOTE DATE OF SERVICE: 01/26/2025 CHIEF COMPLAINT: Stage 5 CKD, CML, CHF, diabetes, urinary tract infection, urinary retention. PLAN: 1. IV fluids. 2. Garcia catheter drainage. 3. Await evaluations by Oncology and Nephrology. HEBERT / IJN: [id number] /
[2025-01-26 12:24] LABS: Glucose,Whole Blood 203 mg/dL (70-110)
[2025-01-26] MEDS: SUCRALFATE 1 GM TAB PO SCH (12:27)
[2025-01-26] MEDS: POTASSIUM CHLORIDE ER 20 MEQ TAB.ER PO SCH (12:27)
[2025-01-26] MEDS: ONDANSETRON 4 MG/2 ML VIAL IVP PRN (12:32)
[2025-01-26] MEDS ORDERED: Potassium Replacement Protocol 1 EACH MISC MISCELLANE PRN (14:46)
[2025-01-26] MEDS: POTASSIUM CHLORIDE 10 MEQ in WATER FOR INJECTION 1 100ML.BAG IVPB SCH (16:07)
--- NOTE | 2025-01-26 16:07 | HP ---
HISTORY AND PHYSICAL CHIEF COMPLAINT: Nausea, vomiting, [id number] kidney failure, hypokalemia, and CML. HISTORY OF PRESENT ILLNESS: This is another admission for this gentleman who was in the hospital a month or 2 ago for renal failure. He is a resident of [facility]. He has been vomiting for the last couple of days and becoming more lethargic. LABORATORY STUDIES: Reported with a blood sugar of 188, potassium 2.7, sodium 129, creatinine 3.47, GFR of 16. Over the last week or 2, his white blood cell count has gone up into the [id number]. It is thought that his CML may be escaping his Gleevec. He has been getting more and more lethargic. He also has congestive heart failure. Discussion was held with the that she might want to place him in hospice, but she insisted on sending him back to the hospital. REVIEW OF SYSTEMS: Not reliably obtained. Past medical history, family history, personal and social histories are essentially unchanged from his recent admitting and discharge evaluations. PHYSICAL EXAMINATION: GENERAL: He is pale and lethargic. He is dehydrated. HEAD, EARS, EYES, NOSE, MOUTH, THROAT: Unremarkable. CHEST: Clear. CARDIAC: Unremarkable. ABDOMEN: Protuberant and soft and nontender. EXTREMITIES: Normal except for some edema. NEUROLOGICAL: He is lethargic. He is admitted to the hospital with diagnoses of: 1. Acute kidney injury. 2. Chronic renal failure. 3. Dehydration. 4. Hyponatremia. 5. Hypokalemia. 6. Urinary tract infection. 7. Urinary retention. 8. Chronic myeloid leukemia. PLAN: 1. Bedrest. 2. IV fluids. 3. Consult Nephrology. 4. Consult Oncology. 5. IV fluids. MMODL / IJN: [id number] /
[2025-01-26 17:12] LABS: Glucose,Whole Blood 216 mg/dL (70-110)
[2025-01-26 20:18] LABS: Glucose,Whole Blood 197 mg/dL (70-110)
[2025-01-26] MEDS: IMATINIB MESYLATE 100 MG PO SCH (21:33)
[2025-01-26] MEDS: allopurinoL 300 MG TAB PO SCH (21:33)
[2025-01-27 06:34] LABS: Glucose,Whole Blood 163 mg/dL (70-110)
[2025-01-27 11:12] LABS: Magnesium 2.1 mg/dL (1.5-2.4)
--- NOTE | 2025-01-27 11:24 | P.PN ---
Subjective Patient is seen in follow-up for acute kidney injury on chronic kidney disease. Currently not on any IV fluids. Has a Garcia catheter for urinary retention. Nonoliguric. Oral intake poor. Dry heaving. Vital signs are stable. General: No acute distress. HEENT: Head exam is unremarkable. LUNGS: No audible rhonchi or wheezes. HEART: Rate and Rhythm are regular. ABDOMEN: Obese, nontender. EXTREMITITES: No edema. Objective - Vital Signs Vital signs: Vital Signs Temp 98.3 F 01/27/25 07:00 Pulse 89 01/27/25 07:00 Resp 17 01/27/25 08:20 BP 128/66 01/27/25 07:00 Pulse Ox 99 01/27/25 07:00 FiO2 Intake & Output 01/26/25 01/27/25 01/27/25 18:59 06:59 18:59 Intake Total 120 1650 Output Total 500 403 Balance -380 1247 Intake: Oral 120 1650 Output: Urine 500 400 Stool 3 Other: Voiding Method Indwelling Catheter Indwelling Catheter Indwelling Catheter # Bowel Movements 1 3 - Labs CBC & Chem 7: 01/26/25 06:20 01/26/25 06:26 Labs: Abnormal Lab Results - Last 24 Hours (Table) 01/26/25 01/26/25 01/26/25 Range/Units 12:23 17:11 20:16 POC Glucose (mg/dL) 203 H 216 H 197 H (70-110) mg/dL 01/27/25 Range/Units 06:29 POC Glucose (mg/dL) 163 H (70-110) mg/dL Microbiology - Last 24 Hours (Table) 01/25/25 18:27 Blood Culture - Preliminary Blood Assessment and Plan Plan: Assessment: 1. Acute kidney injury secondary to ATN secondary to overdiuresis, infection and urinary retention. Creatinine 4.0 yesterday. No hydronephrosis noted on kidney ultrasound. 2. Chronic kidney disease stage IV with baseline creatinine 2-2.5 secondary to diabetic kidney disease. 3. Hypokalemia from diuresis. Replaced. 4. Hypovolemic hyponatremia improved with IV hydration. 5. Chronic diastolic CHF. 6. Hypertension with chronic kidney disease. Controlled. 7. Urinary retention status post Garcia catheter placement. On Flomax. Urology consulted. 8. UTI on antibiotics. Plan: Continue to hold diuretics. Resume IV fluids. Maintain Garcia catheter. Continue to monitor renal function and urine output. Follow-up cultures.
[2025-01-27 11:42] LABS: BUN/Creat Ratio 28.21 Ratio (12.00-20.00); Glucose 154 mg/dL (70-110)
[2025-01-27 11:43] LABS: Calcium 8.2 mg/dL (8.7-10.3); Carbon Dioxide 26.1 mmol/L (21.6-31.8); Chloride 107 mmol/L (96-109)
[2025-01-27 12:01] LABS: Glucose,Whole Blood 216 mg/dL (70-110)
[2025-01-27 12:14] LABS: Basophils # (A) 0.1 k/uL (0-0.2); Basophils % (A) 0 %; Eosinophils # (A) 0.1 k/uL (0-0.7); Eosinophils % (A) 0 %; HCT 37.8 % (39.0-53.0); HGB 12.1 gm/dL (13.0-17.5); Lymphocytes # (A) 0.9 k/uL (1.0-4.8); Lymphocytes % (A) 3 %; MCH 31.4 pg (25.0-35.0); MCHC 31.9 g/dL (31.0-37.0); MCV 98.5 fL (80.0-100.0); Mean Platelet Volume 8.9; Monocytes # (A) 1.4 k/uL (0-1.0); Monocytes % (A) 5 %; Neutrophils % (A) 91 %; Platelet Count 284 k/uL (150-450); RBC 3.84 m/uL (4.30-5.90); RDW 14.3 % (11.5-15.5); WBC 29.7 k/uL (3.8-10.6)
--- NOTE | 2025-01-27 12:17 | P.GSCN ---
History of Present Illness Consult date: 01/27/25 Reason for Consult: Urinary retention Requesting physician: Dwayne Castellano History of present illness: The patient is a 74-year-old white male who has experienced a cough for several weeks. He also reports a 2-week history of nausea and vomiting. He has a history of CHF. He resides at [facility] and was sent to the ER because of abnormal laboratory values. He was found to be in urinary retention and a Garcia catheter was placed. Renal ultrasound shows an echogenic focus within the right kidney, with no evidence of hydronephrosis. When evaluated in the ER, he was asked to provide a urine specimen but was unable to do so. A Garcia catheter was placed, with return of over 500 cc. His indicates that the amount drained from the bladder was approximately 2900 cc. He voids approximately twice daily. He has been treated for recurrent UTIs in the past. I am consulted for this reason. 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; IDDM type II, pt states he occasionally has hypoglycemia during middle of night, arthritis bilateral hands and occasionally in bilateral knees, gout R foot, WILLAM with CPAP use, chronic kidney disease stage 4 with baseline creatinine near 2 due to diabetic kidney disease and chronic interstitial nephritis, anemia History of Any Multi-Drug Resistant Organisms: ESBL Year Discovered:: 11/15/24 MDRO Source:: urine Past Surgical History: Back Surgery, Cholecystectomy, Hernia Repair Additional Past Surgical History / Comment(s): 09/2019 bone marrow biopsy, incisional hernia, colonoscopy with benign polyps. Right cataract removal with IOL implant. PARATHYROIDECTOMY - July 2023 Past Anesthesia/Blood Transfusion Reactions: No Reported Reaction Past Psychological History: No Psychological Hx Reported Smoking Status: Never smoker Past Alcohol Use History: None Reported Past Drug Use History: None Reported - Past Family History Father Family Medical History: Diabetes Mellitus Additional Family Medical History / Comment(s): Father is 97 yrs old. Mother Family Medical History: Dementia Additional Family Medical History / Comment(s): Mother of dementia at the age of 85yrs. Medications and Allergies Home Medications Medication Instructions Recorded Confirmed Type Famotidine 20 mg PO BID@0800,199904/12/23 01/25/25 History Acetaminophen Tab [Tylenol] 650 mg PO Q6H PRN MDD 3gm 03/26/24 01/25/25 History Imatinib Mesylate 300 mg PO HS 03/26/24 01/25/25 History Magnesium Oxide [Magox 400] 400 mg PO DAILY@00 03/26/24 01/25/25 History Tamsulosin [Flomax] 0.4 mg PO DAILY@00 03/26/24 01/25/25 History Baclofen 5 mg PO Q8H PRN 04/26/24 01/25/25 History Insulin Glargine,Hum.rec.anlog 20 units PO HS 05/21/24 01/25/25 History [Lantus Solostar Pen] Ergocalciferol (Vitamin D2) 1,250 mcg PO MO@79911/15/24 01/25/25 History [Drisdol (50,000 Iu)] Insulin Aspart (Niacinamide) See Protocol SQ ACHS@06,,,11/15/24 01/25/25 History [Fiasp 100 Unit/ml Flextouch Pen] L.acidoph,Paracasei, B.lactis 1 cap PO BID@0800,159911/15/24 01/25/25 History [Probiotic] allopurinoL [Zyloprim] 300 mg PO HS@199911/15/24 01/25/25 History amLODIPine [Norvasc] 10 mg PO DAILY@0800 11/15/24 01/25/25 History Furosemide [Lasix] 40 mg PO BID@0800,1600 12/20/24 01/25/25 History Ondansetron [Zofran] 4 mg PO Q6H PRN 12/20/24 01/25/25 History Sucralfate [Carafate] 1 gm PO ACHS@06,11,16,20 12/20/24 01/25/25 History metOLazone [Zaroxolyn] 2.5 mg PO DAILY@0800 12/20/24 01/25/25 History Epoetin Bo-Epbx [Retacrit] 5,094 units SQ DIRECTED 01/06/25 01/25/25 History Sodium Zirconium Cyclosilicate 10 gm PO DAILY@0800 01/06/25 01/25/25 History [Lokelma] Insulin Aspart (Niacinamide) 4 units SQ TID-W/MEALS@07,12,17 01/25/25 01/25/25 History [Fiasp 100 Unit/ml Flextouch Pen] Levothyroxine Sodium [Synthroid] 50 mcg PO DAILY@0600 01/25/25 01/25/25 History hydrALAZINE HCL 50 mg PO BID@08,199901/25/25 01/25/25 History Allergies Allergy/AdvReac Type Severity Reaction Status Date / Time TACOS Inhibitors Allergy Unknown Verified 01/25/25 16:05 codeine Allergy Unknown Verified 01/25/25 16:05 lisinopril Allergy Unknown Verified 01/25/25 16:05 oxycodone Allergy Unknown Verified 01/25/25 16:05 sulfamethoxazole Allergy Unknown Verified 01/25/25 16:05 [From Bactrim] trimethoprim [From Bactrim] Allergy Unknown Verified 01/25/25 16:05 TIDE LAUNDRY SOAP Allergy Severe Rash/Hives Uncoded 01/25/25 15:08 Surgical - Exam Vital Signs Temp Pulse Resp BP Pulse Ox 98.3 F 93 16 124/60 94 L 01/25/25 15:01 01/25/25 15:01 01/25/25 15:01 01/25/25 15:01 01/25/25 15:01 - General well developed, well nourished, no distress - Respiratory normal respiratory effort - Abdomen Abdomen: soft, non tender, no guarding, no rigid, no rebound - Genitourinary normal penis with no external lesions, testicles non-tender - Rectum Rectum: normal sphincter tone, no masses, other (Prostate is normal in size and consistency) - Psychiatric oriented to time, oriented to person, oriented to place, speech is normal, memory intact Results - Labs 01/26/25 06:20 01/27/25 03:08 Abnormal Lab Results - Last 24 Hours (Table) 01/26/25 01/26/25 01/26/25 Range/Units 06:20 06:26 12:23 WBC 27.92 H (4.50-10.00) X 10*3/uL RBC 3.40 L (4.40-5.60) X 10*6/uL Hgb 10.6 L (13.0-17.0) g/dL Hct 32.4 L (39.6-50.0) % Immature Gran # 0.22 H (0.00-0.04) X 10*3/uL Neutrophils # 23.65 H (1.80-7.70) X 10*3/uL Monocytes # 2.23 H (0.20-1.00) X 10*3/uL Sodium 132 L (135-145) mmol/L Potassium 3.1 L (3.5-5.5) mmol/L Chloride 91 L (96-109) mmol/L Anion Gap 13.10 H (4.00-12.00) mmol/L BUN 106.0 H (9.0-27.0) mg/dL Creatinine 4.0 H (0.6-1.5) mg/dL Est GFR (CKD-EPI) 15 L (>=60) BUN/Creatinine Ratio 26.50 H (12.00-20.00) Ratio Glucose 140 H (70-110) mg/dL POC Glucose (mg/dL) 203 H (70-110) mg/dL Calcium 8.3 L (8.7-10.3) mg/dL Alkaline Phosphatase 146 H (41-126) U/L Total Protein 6.0 L (6.2-8.2) g/dL Albumin 2.7 L (3.8-4.9) g/dL Albumin/Globulin Ratio 0.82 L (1.60-3.17) Ratio 01/26/25 01/26/25 01/27/25 Range/Units 17:11 20:16 06:29 WBC (4.50-10.00) X 10*3/uL RBC (4.40-5.60) X 10*6/uL Hgb (13.0-17.0) g/dL Hct (39.6-50.0) % Immature Gran # (0.00-0.04) X 10*3/uL Neutrophils # (1.80-7.70) X 10*3/uL Monocytes # (0.20-1.00) X 10*3/uL Sodium (135-145) mmol/L Potassium (3.5-5.5) mmol/L Chloride (96-109) mmol/L Anion Gap (4.00-12.00) mmol/L BUN (9.0-27.0) mg/dL Creatinine (0.6-1.5) mg/dL Est GFR (CKD-EPI) (>=60) BUN/Creatinine Ratio (12.00-20.00) Ratio Glucose (70-110) mg/dL POC Glucose (mg/dL) 216 H 197 H 163 H (70-110) mg/dL Calcium (8.7-10.3) mg/dL Alkaline Phosphatase (41-126) U/L Total Protein (6.2-8.2) g/dL Albumin (3.8-4.9) g/dL Albumin/Globulin Ratio (1.60-3.17) Ratio Microbiology - Last 24 Hours (Table) 01/25/25 18:27 Blood Culture - Preliminary Blood Diabetes panel 01/26/25 Range/Units 06:26 Sodium 132 L (135-145) mmol/L Potassium 3.1 L (3.5-5.5) mmol/L Chloride 91 L (96-109) mmol/L Carbon Dioxide 27.9 (21.6-31.8) mmol/L BUN 106.0 H (9.0-27.0) mg/dL Creatinine 4.0 H (0.6-1.5) mg/dL Glucose 140 H (70-110) mg/dL Calcium 8.3 L (8.7-10.3) mg/dL AST 22 (14-35) U/L ALT 17 (10-49) U/L Alkaline Phosphatase 146 H (41-126) U/L Total Protein 6.0 L (6.2-8.2) g/dL Albumin 2.7 L (3.8-4.9) g/dL Calcium panel 01/26/25 Range/Units 06:26 Calcium 8.3 L (8.7-10.3) mg/dL Albumin 2.7 L (3.8-4.9) g/dL Pituitary panel 01/26/25 Range/Units 06:26 Sodium 132 L (135-145) mmol/L Potassium 3.1 L (3.5-5.5) mmol/L Chloride 91 L (96-109) mmol/L Carbon Dioxide 27.9 (21.6-31.8) mmol/L BUN 106.0 H (9.0-27.0) mg/dL Creatinine 4.0 H (0.6-1.5) mg/dL Glucose 140 H (70-110) mg/dL Calcium 8.3 L (8.7-10.3) mg/dL Adrenal panel 01/26/25 Range/Units 06:26 Sodium 132 L (135-145) mmol/L Potassium 3.1 L (3.5-5.5) mmol/L Chloride 91 L (96-109) mmol/L Carbon Dioxide 27.9 (21.6-31.8) mmol/L BUN 106.0 H (9.0-27.0) mg/dL Creatinine 4.0 H (0.6-1.5) mg/dL Glucose 140 H (70-110) mg/dL Calcium 8.3 L (8.7-10.3) mg/dL Total Bilirubin 0.3 (0.3-1.2) mg/dL AST 22 (14-35) U/L ALT 17 (10-49) U/L Alkaline Phosphatase 146 H (41-126) U/L Total Protein 6.0 L (6.2-8.2) g/dL Albumin 2.7 L (3.8-4.9) g/dL - Imaging US - kidney/bladder: report reviewed, image reviewed Assessment and Plan (1) Urinary retention Current Visit: Yes Status: Acute Code(s): R33.9 - RETENTION OF URINE, UNSPECIFIED SNOMED Code(s): 479949782 (2) UTI (urinary tract infection) Current Visit: Yes Status: Acute Code(s): N39.0 - URINARY TRACT INFECTION, SITE NOT SPECIFIED SNOMED Code(s): 17902915 Plan: I had a lengthy discussion with the patient, his , and his daughter. 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 I would thus suggest that he be discharged home with the Garcia catheter, and arrangements will be made for him to undergo urodynamic testing and cystoscopy in our office as an outpatient. Time with Patient: Greater than 30
[2025-01-27] MEDS: SODIUM CHLORIDE 0.9% 1,000 ML IV SCH (12:22)
[2025-01-27 12:40] LABS: ALT 17 U/L (4-49); AST 23 U/L (17-59); African American GFR (CKD) 18 (>60 ml/min/1.73 sqM); Albumin 2.8 g/dL (3.5-5.0); Albumin/Globulin Ratio 0.8; Alkaline Phosphatase 165 U/L (38-126); Anion Gap 10 mmol/L; Calcium 8.2 mg/dL (8.4-10.2); Carbon Dioxide 27 mmol/L (22-30); Chloride 92 mmol/L (98-107); Globulin 3.4 g/dL; Glucose 221 mg/dL (74-99); Non-African American GFR(CKD) 16 (>60 ml/min/1.73 sqM); Sodium 129 mmol/L (137-145); Total Bilirubin 0.5 mg/dL (0.2-1.3); Total Protein 6.2 g/dL (6.3-8.2)
[2025-01-27 12:52] LABS: Blood Urea Nitrogen 133 mg/dL (9-20)
[2025-01-27] MEDS ORDERED: Potassium Replacement Protocol 1 EACH MISC MISCELLANE PRN (15:07)
[2025-01-27 16:53] LABS: Glucose,Whole Blood 301 mg/dL (70-110)
[2025-01-27] MEDS: POTASSIUM CHLORIDE ER 20 MEQ TAB.ER PO STA (16:55)
[2025-01-27] MEDS: POTASSIUM CHLORIDE 10 MEQ in WATER FOR INJECTION 1 100ML.BAG IVPB SCH ×2 (17:13→21:51)
[2025-01-27 20:29] LABS: Glucose,Whole Blood 292 mg/dL (70-110)
[2025-01-27] MEDS: INSULIN LISPRO (HumaLOG) 100 UNIT/ML 10 mL VL SQ SCH (20:32)
--- NOTE | 2025-01-28 01:51 | PN ---
PROGRESS NOTE DATE OF SERVICE: 01/27/2025 CHIEF COMPLAINT: 1. [id number] renal failure. 2. Congestive heart failure. 3. Diabetes. 4. Chronic myeloid leukemia. HISTORY OF PRESENT ILLNESS: This patient remains fairly comfortable. Numbers are about the same. Garcia catheter was in place and he is being seen by Urology. He is also being followed by Nephrology and we are waiting for a consult from Hematology. He really has no complaints, and he is quite awake and alert. PHYSICAL EXAMINATION: GENERAL: He is dry. LUNGS: He has good breath sounds bilaterally. CARDIAC: Unchanged. ABDOMEN: Soft, nontender. EXTREMITIES: Normal. IMPRESSION: 1. Acute kidney injury. 2. Acute myeloid leukemia. 3. Congestive heart failure. PLAN: 1. Await guidance from Nephrology with regard to possible hemodialysis. 2. Await for recommendations from Hematology. He may require medication change from his Gleevec. MMODL / KELLYN: [id number] /
[2025-01-28 06:33] LABS: Glucose,Whole Blood 188 mg/dL (70-110)
[2025-01-28 08:25] LABS: Magnesium 2.5 mg/dL (1.5-2.4)
[2025-01-28 08:44] LABS: BUN/Creat Ratio 31.32 Ratio (12.00-20.00); Calcium 8.2 mg/dL (8.7-10.3); Carbon Dioxide 26.5 mmol/L (21.6-31.8); Chloride 92 mmol/L (96-109); Glucose 203 mg/dL (70-110); Potassium 3.2 mmol/L (3.5-5.5); Sodium 130 mmol/L (135-145)
--- NOTE | 2025-01-28 10:42 | P.PN ---
Subjective Patient is seen in follow-up for acute kidney injury on chronic kidney disease. Receiving IV fluids. Has been vomiting. Has a Garcia catheter for urinary retention. Vital signs are stable. General: No acute distress. HEENT: Head exam is unremarkable. LUNGS: No audible rhonchi or wheezes. HEART: Rate and Rhythm are regular. ABDOMEN: Obese, nontender. EXTREMITITES: No edema. Objective - Vital Signs Vital signs: Vital Signs Temp 98.0 F 01/28/25 07:00 Pulse 96 01/28/25 07:00 Resp 17 01/28/25 07:00 BP 111/65 01/28/25 07:00 Pulse Ox 99 01/28/25 07:00 FiO2 Intake & Output 01/27/25 01/28/25 01/28/25 18:59 06:59 18:59 Other: Voiding Method Indwelling Catheter Indwelling Catheter Indwelling Catheter # Bowel Movements 4 2 - Labs CBC & Chem 7: 01/27/25 11:51 01/28/25 05:25 Labs: Abnormal Lab Results - Last 24 Hours (Table) 01/27/25 01/27/25 01/27/25 Range/Units 03:08 11:51 11:55 WBC 29.7 H (3.8-10.6) k/uL RBC 3.84 L (4.30-5.90) m/uL Hgb 12.1 L (13.0-17.5) gm/dL Hct 37.8 L (39.0-53.0) % Neutrophils # 27.0 H (1.3-7.7) k/uL Lymphocytes # 0.9 L (1.0-4.8) k/uL Monocytes # 1.4 H (0-1.0) k/uL Sodium 154 H 129 L (135-145) mmol/L Potassium 3.0 L 3.0 L (3.5-5.5) mmol/L Chloride 92 L (98-107) mmol/L Anion Gap 20.90 H (4.00-12.00) mmol/L BUN 110.0 H 133 H* (9.0-27.0) mg/dL Creatinine 3.9 H 3.59 H (0.6-1.5) mg/dL Est GFR (CKD-EPI) 15 L (>=60) BUN/Creatinine Ratio 28.21 H (12.00-20.00) Ratio Glucose 154 H 221 H (70-110) mg/dL POC Glucose (mg/dL) (70-110) mg/dL Calcium 8.2 L 8.2 L (8.7-10.3) mg/dL Magnesium (1.5-2.4) mg/dL Alkaline Phosphatase 165 H (38-126) U/L Total Protein 6.2 L (6.3-8.2) g/dL Albumin 2.8 L (3.5-5.0) g/dL 01/27/25 01/27/25 01/27/25 Range/Units 11:59 16:52 20:27 WBC (3.8-10.6) k/uL RBC (4.30-5.90) m/uL Hgb (13.0-17.5) gm/dL Hct (39.0-53.0) % Neutrophils # (1.3-7.7) k/uL Lymphocytes # (1.0-4.8) k/uL Monocytes # (0-1.0) k/uL Sodium (135-145) mmol/L Potassium (3.5-5.5) mmol/L Chloride (98-107) mmol/L Anion Gap (4.00-12.00) mmol/L BUN (9.0-27.0) mg/dL Creatinine (0.6-1.5) mg/dL Est GFR (CKD-EPI) (>=60) BUN/Creatinine Ratio (12.00-20.00) Ratio Glucose (70-110) mg/dL POC Glucose (mg/dL) 216 H 301 H 292 H (70-110) mg/dL Calcium (8.7-10.3) mg/dL Magnesium (1.5-2.4) mg/dL Alkaline Phosphatase (38-126) U/L Total Protein (6.3-8.2) g/dL Albumin (3.5-5.0) g/dL 01/28/25 01/28/25 01/28/25 Range/Units 02:47 05:25 06:32 WBC (3.8-10.6) k/uL RBC (4.30-5.90) m/uL Hgb (13.0-17.5) gm/dL Hct (39.0-53.0) % Neutrophils # (1.3-7.7) k/uL Lymphocytes # (1.0-4.8) k/uL Monocytes # (0-1.0) k/uL Sodium 130 L (135-145) mmol/L Potassium 3.2 L 3.3 L (3.5-5.5) mmol/L Chloride 92 L (98-107) mmol/L Anion Gap (4.00-12.00) mmol/L BUN 119.0 H (9.0-27.0) mg/dL Creatinine 3.8 H (0.6-1.5) mg/dL Est GFR (CKD-EPI) 16 L (>=60) BUN/Creatinine Ratio 31.32 H (12.00-20.00) Ratio Glucose 203 H (70-110) mg/dL POC Glucose (mg/dL) 188 H (70-110) mg/dL Calcium 8.2 L (8.7-10.3) mg/dL Magnesium 2.5 H (1.5-2.4) mg/dL Alkaline Phosphatase (38-126) U/L Total Protein (6.3-8.2) g/dL Albumin (3.5-5.0) g/dL Microbiology - Last 24 Hours (Table) 01/25/25 18:27 Blood Culture - Preliminary Blood Assessment and Plan Plan: Assessment: 1. Acute kidney injury secondary to ATN secondary to overdiuresis, infection and urinary retention. Creatinine peaked at 4.0 this admission and is 3.8 today. No hydronephrosis noted on kidney ultrasound. 2. Chronic kidney disease stage IV with baseline creatinine 2-2.5 secondary to diabetic kidney disease. 3. Hypokalemia from diuresis. Replaced. 4. Hypovolemic hyponatremia improved with IV hydration. 5. Chronic diastolic CHF. 6. Hypertension with chronic kidney disease. Controlled. 7. Urinary retention status post Garcia catheter placement. On Flomax. Urology following. Patient to be discharged with Garcia catheter. 8. UTI on antibiotics. Plan: Continue to hold diuretics. Maintain IV fluids. Continue to monitor renal function and urine output. Follow-up cultures. Replace potassium. Stop magnesium supplementation. Hold hydralazine for systolic blood pressure less than 120.
[2025-01-28] MEDS: POTASSIUM CHLORIDE 20 MEQ in WATER FOR INJECTION 1 100ML.BAG IVPB SCH (11:11)
[2025-01-28 11:38] LABS: Sodium 134
[2025-01-28 11:39] LABS: Anion Gap 0.9
[2025-01-28 12:18] LABS: Glucose,Whole Blood 231 mg/dL (70-110)
[2025-01-28 16:24] LABS: Glucose,Whole Blood 245 mg/dL (70-110)
[2025-01-28 20:39] LABS: Glucose,Whole Blood 258 mg/dL (70-110)
--- NOTE | 2025-01-29 03:57 | PN ---
PROGRESS NOTE DATE OF SERVICE: 01/28/2025 CHIEF COMPLAINT: CKD and electrolyte imbalance. HISTORY OF PRESENT ILLNESS: This patient is just about the same. His GFR is 16, and it is holding. His potassium is low at 3.2. We await the hematology evaluation of his rising white count. PHYSICAL EXAMINATION: CHEST: Clear. CARDIAC: Normal. ABDOMEN: Soft. EXTREMITIES: Normal. IMPRESSION: 1. Stage 4 chronic kidney disease. 2. Electrolyte imbalance with hypokalemia. 3. Diabetes. 4. Congestive heart failure. 5. Cardiomyopathy. 6. CML. PLAN: Continue with current management and await guidelines from Hematology. He may be able to go back to the snf soon. MMODL / IJN: [id number] /
[2025-01-29 06:22] LABS: Glucose,Whole Blood 165 mg/dL (70-110)
--- NOTE | 2025-01-29 10:39 | P.PN ---
Subjective Patient is seen in follow-up for acute kidney injury on chronic kidney disease. Receiving IV fluids. Oral intake poor. Having dry heaves. Has a Garcia catheter for urinary retention. Nonoliguric. Vital signs are stable. General: No acute distress. HEENT: Head exam is unremarkable. LUNGS: No audible rhonchi or wheezes. HEART: Rate and Rhythm are regular. ABDOMEN: Obese, nontender. EXTREMITITES: No edema. Objective - Vital Signs Vital signs: Vital Signs Temp 97.8 F 01/29/25 06:51 Pulse 95 01/29/25 06:51 Resp 20 01/29/25 06:51 BP 128/73 01/29/25 06:51 Pulse Ox 99 01/29/25 06:51 FiO2 Intake & Output 01/28/25 01/29/25 01/29/25 18:59 06:59 18:59 Intake Total 200 Output Total 450 320 Balance -250 -320 Intake: Oral 200 Output: Urine 450 320 Other: Voiding Method Indwelling Catheter Indwelling Catheter Indwelling Catheter # Voids 1 # Bowel Movements 2 1 - Labs CBC & Chem 7: 01/27/25 11:51 01/28/25 05:25 Labs: Abnormal Lab Results - Last 24 Hours (Table) 01/28/25 01/28/25 01/28/25 Range/Units 12:17 16:23 20:38 POC Glucose (mg/dL) 231 H 245 H 258 H (70-110) mg/dL 01/29/25 Range/Units 06:15 POC Glucose (mg/dL) 165 H (70-110) mg/dL Microbiology - Last 24 Hours (Table) 01/25/25 18:27 Blood Culture - Preliminary Blood Assessment and Plan Plan: Assessment: 1. Acute kidney injury secondary to ATN secondary to overdiuresis, infection and urinary retention. Creatinine peaked at 4.0 this admission and is was 3.8 yesterday. No hydronephrosis noted on kidney ultrasound. 2. Chronic kidney disease stage IV with baseline creatinine 2-2.5 secondary to diabetic kidney disease. 3. Hypokalemia from diuresis. Replaced. 4. Hypovolemic hyponatremia improved with IV hydration. 5. Chronic diastolic CHF. 6. Hypertension with chronic kidney disease. Controlled. 7. Urinary retention status post Garcia catheter placement. On Flomax. Urology following. Patient to be discharged with Garcia catheter. 8. UTI on antibiotics. Plan: Continue to hold diuretics. Maintain IV fluids. Continue to monitor renal function and urine output. Follow-up cultures. Replace potassium as needed. Hold hydralazine for systolic blood pressure less than 120.
[2025-01-29 11:36] LABS: Glucose,Whole Blood 209 mg/dL (70-110)
[2025-01-29 16:34] LABS: Glucose,Whole Blood 223 mg/dL (70-110)
[2025-01-29 20:39] LABS: Glucose,Whole Blood 253 mg/dL (70-110)
--- NOTE | 2025-01-30 04:48 | PN ---
PROGRESS NOTE DATE OF SERVICE: 01/29/2025 CHIEF COMPLAINT: Renal failure, congestive heart failure, diabetes, and CML. HISTORY OF PRESENT ILLNESS: This gentleman is doing fairly well, but he does not feel well, and he is still slightly nauseated. His GFR has risen above 15 now. He waits to be evaluated by Hematology. PHYSICAL EXAMINATION: LUNGS: Breath sounds are heard bilaterally. CARDIAC: Unremarkable. ABDOMEN: Protuberant, soft, and nontender. EXTREMITIES: Normal. IMPRESSION: 1. Stage IV chronic kidney disease. 2. Poorly controlled diabetes. 3. Nausea. 4. Type 2 diabetes. 5. AML. PLAN: Continue with current program and await to see if anything further will be planned regarding his white count and his kidney function. MMODL / IJN: [id number] /
[2025-01-30 06:06] LABS: Glucose,Whole Blood 146 mg/dL (70-110)
[2025-01-30 08:28] LABS: Carbon Dioxide 21.4 mmol/L (21.6-31.8); Chloride 100 mmol/L (96-109); Glucose 166 mg/dL (70-110); Magnesium 2.3 mg/dL (1.5-2.4); Potassium 3.2 mmol/L (3.5-5.5); Sodium 134 mmol/L (135-145)
[2025-01-30 11:23] LABS: Glucose,Whole Blood 196 mg/dL (70-110)
--- NOTE | 2025-01-30 11:57 | P.PN ---
Subjective Patient is seen in follow-up for acute kidney injury on chronic kidney disease. Receiving IV fluids. Oral intake poor. No further dry heaves or vomiting. Has a Garcia catheter for urinary retention. Nonoliguric. Renal function better. Vital signs are stable. General: No acute distress. HEENT: Head exam is unremarkable. LUNGS: No audible rhonchi or wheezes. HEART: Rate and Rhythm are regular. ABDOMEN: Obese, nontender. EXTREMITITES: No edema. Objective - Vital Signs Vital signs: Vital Signs Temp 98.0 F 01/30/25 07:11 Pulse 83 01/30/25 07:50 Resp 17 01/30/25 07:50 BP 117/62 01/30/25 07:11 Pulse Ox 99 01/30/25 07:11 FiO2 Intake & Output 01/29/25 01/30/25 01/30/25 18:59 06:59 18:59 Output Total 600 500 Balance -600 -500 Output: Urine 600 500 Uretheral (Garcia) 500 Other: Voiding Method Indwelling Catheter Indwelling Catheter Indwelling Catheter # Bowel Movements 1 2 - Labs CBC & Chem 7: 01/27/25 11:51 01/30/25 03:31 Labs: Abnormal Lab Results - Last 24 Hours (Table) 01/29/25 01/29/25 01/30/25 Range/Units 16:32 20:38 03:31 Sodium 134 L (135-145) mmol/L Potassium 3.2 L (3.5-5.5) mmol/L Carbon Dioxide 21.4 L (21.6-31.8) mmol/L Anion Gap 12.60 H (4.00-12.00) mmol/L BUN 111.0 H (9.0-27.0) mg/dL Creatinine 3.0 H (0.6-1.5) mg/dL Est GFR (CKD-EPI) 21 L (>=60) BUN/Creatinine Ratio 37.00 H (12.00-20.00) Ratio Glucose 166 H (70-110) mg/dL POC Glucose (mg/dL) 223 H 253 H (70-110) mg/dL Calcium 8.0 L (8.7-10.3) mg/dL 01/30/25 01/30/25 Range/Units 06:04 11:18 Sodium (135-145) mmol/L Potassium (3.5-5.5) mmol/L Carbon Dioxide (21.6-31.8) mmol/L Anion Gap (4.00-12.00) mmol/L BUN (9.0-27.0) mg/dL Creatinine (0.6-1.5) mg/dL Est GFR (CKD-EPI) (>=60) BUN/Creatinine Ratio (12.00-20.00) Ratio Glucose (70-110) mg/dL POC Glucose (mg/dL) 146 H 196 H (70-110) mg/dL Calcium (8.7-10.3) mg/dL Assessment and Plan Plan: Assessment: 1. Acute kidney injury secondary to ATN secondary to overdiuresis, infection and urinary retention. Creatinine peaked at 4.0 this admission and is 3.0 today. No hydronephrosis noted on kidney ultrasound. 2. Chronic kidney disease stage IV with baseline creatinine 2-2.5 secondary to diabetic kidney disease. 3. Hypokalemia from diuresis. Replaced. 4. Hypovolemic hyponatremia improved with IV hydration. 5. Chronic diastolic CHF. 6. Hypertension with chronic kidney disease. Controlled. 7. Urinary retention status post Garcia catheter placement. On Flomax. Urology following. Patient to be discharged with Garcia catheter. 8. UTI on antibiotics. Plan: Continue to hold diuretics. Maintain IV fluids. Continue to monitor renal function and urine output. Follow-up cultures. Replace potassium. Hold hydralazine for systolic blood pressure less than 120.
[2025-01-30] MEDS: POTASSIUM CHLORIDE ER 20 MEQ TAB.ER PO SCH (12:32)
[2025-01-30] MEDS: POTASSIUM CHLORIDE ER 20 MEQ TAB.ER PO STA (12:40)
[2025-01-30 16:33] LABS: Glucose,Whole Blood 247 mg/dL (70-110)
[2025-01-30 20:50] LABS: Glucose,Whole Blood 233 mg/dL (70-110)
--- NOTE | 2025-01-31 04:17 | PN ---
PROGRESS NOTE CHIEF COMPLAINT: CKD, congestive heart failure. HISTORY OF PRESENT ILLNESS: Gentleman is stable and he is being further evaluated by Nephrology. He might be able to be discharged fairly soon. He will be seen by Hematology. HEBERT / ETHEL: [id number] /
[2025-01-31 06:03] LABS: Glucose,Whole Blood 210 mg/dL (70-110)
[2025-01-31 08:56] LABS: Calcium 7.8 mg/dL (8.7-10.3); Carbon Dioxide 23.7 mmol/L (21.6-31.8); Chloride 103 mmol/L (96-109); Glucose 170 mg/dL (70-110); Magnesium 2.1 mg/dL (1.5-2.4); Potassium 3.4 mmol/L (3.5-5.5); Sodium 133 mmol/L (135-145)
[2025-01-31] MEDS: cefTRIAXone 2 GM in DEXTROSE 5% IN WATER 50 ML IVPB SCH (10:21)
[2025-01-31] MEDS: POTASSIUM CHLORIDE ER 20 MEQ TAB.ER PO SCH (10:22)
--- NOTE | 2025-01-31 11:22 | P.PN ---
Subjective Patient is seen in follow-up for acute kidney injury on chronic kidney disease. Receiving IV fluids. Oral intake poor. Did have an episode of vomiting this morning. Has a Garcia catheter for urinary retention. Nonoliguric. Renal function better. Vital signs are stable. General: No acute distress. HEENT: Head exam is unremarkable. LUNGS: No audible rhonchi or wheezes. HEART: Rate and Rhythm are regular. ABDOMEN: Obese, nontender. EXTREMITITES: No edema. Objective - Vital Signs Vital signs: Vital Signs Temp 97.9 F 01/31/25 07:24 Pulse 90 01/31/25 10:17 Resp 18 01/31/25 08:00 BP 158/94 01/31/25 10:17 Pulse Ox 98 01/31/25 07:24 FiO2 Intake & Output 01/30/25 01/31/25 01/31/25 18:59 06:59 18:59 Output Total 500 500 350 Balance -500 -500 -350 Output: Urine 500 500 350 Uretheral (Garcia) 500 Other: Voiding Method Indwelling Catheter Indwelling Catheter Indwelling Catheter # Bowel Movements 5 3 - Labs CBC & Chem 7: 01/27/25 11:51 01/31/25 05:44 Labs: Abnormal Lab Results - Last 24 Hours (Table) 01/30/25 01/30/25 01/30/25 Range/Units 11:18 16:32 20:49 Sodium (135-145) mmol/L Potassium (3.5-5.5) mmol/L BUN (9.0-27.0) mg/dL Creatinine (0.6-1.5) mg/dL Est GFR (CKD-EPI) (>=60) BUN/Creatinine Ratio (12.00-20.00) Ratio Glucose (70-110) mg/dL POC Glucose (mg/dL) 196 H 247 H 233 H (70-110) mg/dL Calcium (8.7-10.3) mg/dL 01/31/25 01/31/25 Range/Units 05:44 06:02 Sodium 133 L (135-145) mmol/L Potassium 3.4 L (3.5-5.5) mmol/L BUN 101.0 H (9.0-27.0) mg/dL Creatinine 2.5 H (0.6-1.5) mg/dL Est GFR (CKD-EPI) 26 L (>=60) BUN/Creatinine Ratio 40.40 H (12.00-20.00) Ratio Glucose 170 H (70-110) mg/dL POC Glucose (mg/dL) 210 H (70-110) mg/dL Calcium 7.8 L (8.7-10.3) mg/dL Microbiology - Last 24 Hours (Table) 01/25/25 18:27 Blood Culture - Final Blood Assessment and Plan Plan: Assessment: 1. Acute kidney injury secondary to ATN secondary to overdiuresis, infection and urinary retention. Creatinine peaked at 4.0 this admission and is 2.5 today. No hydronephrosis noted on kidney ultrasound. 2. Chronic kidney disease stage IV with baseline creatinine 2-2.5 secondary to diabetic kidney disease. 3. Hypokalemia from diuresis. Replaced. 4. Hypovolemic hyponatremia improved with IV hydration. 5. Chronic diastolic CHF. 6. Hypertension with chronic kidney disease. Controlled. 7. Urinary retention status post Garcia catheter placement. On Flomax. Urology following. Patient to be discharged with Garcia catheter. 8. UTI on antibiotics. Plan: Continue to hold diuretics. Maintain IV fluids. Continue to monitor renal function and urine output. Follow-up cultures. Potassium replaced. Hold hydralazine for systolic blood pressure less than 120.
[2025-01-31 11:27] LABS: Glucose,Whole Blood 161 mg/dL (70-110)
[2025-01-31 16:36] LABS: Glucose,Whole Blood 139 mg/dL (70-110)
[2025-01-31 21:10] LABS: Glucose,Whole Blood 279 mg/dL (70-110)
--- NOTE | 2025-01-31 22:23 | PN ---
PROGRESS NOTE CHIEF COMPLAINT: Renal failure, congestive heart failure, and leukocytosis. HISTORY OF PRESENT ILLNESS: This gentleman remains about the same. PHYSICAL EXAMINATION: CHEST: Clear. CARDIAC: Normal. ABDOMEN: Soft, nontender. IMPRESSION: 1. Stage IV chronic kidney disease. 2. Chronic congestive heart failure. 3. Poorly-controlled diabetes. PLAN: 1. He would like to have Ensure with each meal and this is ordered. 2. Await for further guidance from Nephrology and he is also to be seen by Oncology for his CML. MMODL / IJN: [id number] /
--- NOTE | 2025-01-31 23:16 | P.CONS ---
History of Present Illness - Reason for Consult Consult date: 01/31/25 CML, on gleevec Requesting physician: Dwayne Castellano - Chief Complaint UTI, WENDI - History of Present Illness Mr. Ascencio is a pleasant 74-year-old male patient of Dr. Kidd, initially seen in 2018 when he was referred for persistent leukocytosis on routine blood work. 02/08/2019 CBC revealed WBC of 11.6, mild neutrophilia, normal hemoglobin and platelet counts, CMP showed a creatinine of 1.69 with a normal TSH. Prior CBCs from 2016 and 2017 were unremarkable. 08/15/2019 BCR/ABL on peripheral blood was positive, flow cytometry would be revealed slight increase in CD8. 09/28/2019 bone marrow biopsy and aspirate with cytogenetics were consistent with CML. Patient was started on Gleevec October 01, 2019. Patient was on Gleevac and in August 2020 BCR, ABL by FISH was negative. It has been negative ever since. Patient last had a telehealth visit in June 2024. Last BCR-ABL I found was from April 2024 and it was negative. There was another one drawn later last year, I am unable to find the results of that. Patient is continued on Gleevec and done well. Patient is currently admitted with acute kidney injury and UTI. He was admitted 6 days ago. He is doing well overall. There were concerns that his white blood cell count was elevated. Patient had no other complaints on a 10 point review of systems today. 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, currently on Gleevic; IDDM type II, pt states he occasionally has hypoglycemia during middle of night, arthritis bilateral hands and occasionally in bilateral knees, gout R foot, WILLAM with CPAP use, chronic kidney disease stage 4 with baseline creatinine near 2 due to diabetic kidney disease and chronic interstitial nephritis, anemia History of Any Multi-Drug Resistant Organisms: ESBL Year Discovered:: 11/15/24 MDRO Source:: urine Past Surgical History: Back Surgery, Cholecystectomy, Hernia Repair Additional Past Surgical History / Comment(s): 09/2019 bone marrow biopsy, incisional hernia, colonoscopy with benign polyps. Right cataract removal with IOL implant. PARATHYROIDECTOMY - July 2023 Past Anesthesia/Blood Transfusion Reactions: No Reported Reaction Past Psychological History: No Psychological Hx Reported Smoking Status: Never smoker Past Alcohol Use History: None Reported Past Drug Use History: None Reported - Past Family History Father Family Medical History: Diabetes Mellitus Additional Family Medical History / Comment(s): Father is 97 yrs old. Mother Family Medical History: Dementia Additional Family Medical History / Comment(s): Mother of dementia at the age of 85yrs. Medications and Allergies Home Medications Medication Instructions Recorded Confirmed Type Famotidine 20 mg PO BID@0800,199904/12/23 01/25/25 History Acetaminophen Tab [Tylenol] 650 mg PO Q6H PRN MDD 3gm 03/26/24 01/25/25 History Imatinib Mesylate 300 mg PO HS 03/26/24 01/25/25 History Magnesium Oxide [Magox 400] 400 mg PO DAILY@0800 03/26/24 01/25/25 History Tamsulosin [Flomax] 0.4 mg PO DAILY@0800 03/26/24 01/25/25 History Baclofen 5 mg PO Q8H PRN 04/26/24 01/25/25 History Insulin Glargine,Hum.rec.anlog 20 units PO HS 05/21/24 01/25/25 History [Lantus Solostar Pen] Ergocalciferol (Vitamin D2) 1,250 mcg PO MO@0800 11/15/24 01/25/25 History [Drisdol (50,000 Iu)] Insulin Aspart (Niacinamide) See Protocol SQ ACHS@06,11,16,20 11/15/24 01/25/25 History [Fiasp 100 Unit/ml Flextouch Pen] L.acidoph,Paracasei, B.lactis 1 cap PO BID@0800,1600 11/15/24 01/25/25 History [Probiotic] allopurinoL [Zyloprim] 300 mg PO HS@199911/15/24 01/25/25 History amLODIPine [Norvasc] 10 mg PO DAILY@0800 11/15/24 01/25/25 History Furosemide [Lasix] 40 mg PO BID@0800,1600 12/20/24 01/25/25 History Ondansetron [Zofran] 4 mg PO Q6H PRN 12/20/24 01/25/25 History Sucralfate [Carafate] 1 gm PO ACHS@06,11,16,20 12/20/24 01/25/25 History metOLazone [Zaroxolyn] 2.5 mg PO DAILY@0800 12/20/24 01/25/25 History Epoetin Bo-Epbx [Retacrit] 5,094 units SQ DIRECTED 01/06/25 01/25/25 History Sodium Zirconium Cyclosilicate 10 gm PO DAILY@0800 01/06/25 01/25/25 History [Lokelma] Insulin Aspart (Niacinamide) 4 units SQ TID-W/MEALS@,,01/25/25 01/25/25 History [Fiasp 100 Unit/ml Flextouch Pen] Levothyroxine Sodium [Synthroid] 50 mcg PO DAILY@0600 01/25/25 01/25/25 History hydrALAZINE HCL 50 mg PO BID@0800,199901/25/25 01/25/25 History Allergies Allergy/AdvReac Type Severity Reaction Status Date / Time TACOS Inhibitors Allergy Unknown Verified 01/25/25 16:05 codeine Allergy Unknown Verified 01/25/25 16:05 lisinopril Allergy Unknown Verified 01/25/25 16:05 oxycodone Allergy Unknown Verified 01/25/25 16:05 sulfamethoxazole Allergy Unknown Verified 01/25/25 16:05 [From Bactrim] trimethoprim [From Bactrim] Allergy Unknown Verified 01/25/25 16:05 TIDE LAUNDRY SOAP Allergy Severe Rash/Hives Uncoded 01/25/25 15:08 Physical Exam Vitals: Vital Signs Temp Pulse Resp BP Pulse Ox 01/31/25 12:17 98.0 F 65 18 132/61 100 01/31/25 10:17 90 158/94 01/31/25 08:00 85 18 01/31/25 07:24 97.9 F 85 18 93/54 98 01/31/25 01:24 99 F 94 17 133/51 99 01/30/25 23:50 83 01/30/25 19:11 97.7 F 83 17 99/61 98 Intake and Output 01/31/25 01/31/25 01/31/25 06:59 14:59 22:59 Intake Total 10 Output Total 500 350 Balance -500 -340 Intake: IV 10 Invasive Line 3 10 Output: Urine 500 350 Uretheral (Garcia) 500 Other: Voiding Method Indwelling Catheter Indwelling Catheter # Bowel Movements 3 1 - Constitutional General appearance: cooperative, no acute distress, obese - EENT Eyes: anicteric sclerae, EOMI ENT: hearing grossly normal, normal oropharynx - Neck Neck: no lymphadenopathy - Respiratory Respiratory: bilateral: CTA, diminished - Cardiovascular Rhythm: regular Heart sounds: normal: S1, S2 leg Peripheral Edema: bilateral: None - Gastrointestinal General gastrointestinal: normal bowel sounds, soft - Neurologic Neurologic: CNII-XII intact - Musculoskeletal Musculoskeletal: generalized weakness - Psychiatric Psychiatric: A&O x's 3, appropriate affect, intact judgment & insight Results CBC & Chem 7: 01/27/25 11:51 01/31/25 05:44 Labs: Abnormal Lab Results - Last 24 Hours (Table) 01/30/25 01/30/25 01/31/25 Range/Units 16:32 20:49 05:44 Sodium 133 L (135-145) mmol/L Potassium 3.4 L (3.5-5.5) mmol/L BUN 101.0 H (9.0-27.0) mg/dL Creatinine 2.5 H (0.6-1.5) mg/dL Est GFR (CKD-EPI) 26 L (>=60) BUN/Creatinine Ratio 40.40 H (12.00-20.00) Ratio Glucose 170 H (70-110) mg/dL POC Glucose (mg/dL) 247 H 233 H (70-110) mg/dL Calcium 7.8 L (8.7-10.3) mg/dL 01/31/25 01/31/25 Range/Units 06:02 11:26 Sodium (135-145) mmol/L Potassium (3.5-5.5) mmol/L BUN (9.0-27.0) mg/dL Creatinine (0.6-1.5) mg/dL Est GFR (CKD-EPI) (>=60) BUN/Creatinine Ratio (12.00-20.00) Ratio Glucose (70-110) mg/dL POC Glucose (mg/dL) 210 H 161 H (70-110) mg/dL Calcium (8.7-10.3) mg/dL Microbiology - Last 24 Hours (Table) 01/25/25 18:27 Blood Culture - Final Blood Assessment and Plan (1) Leukocytosis Current Visit: Yes Status: Acute Priority: Medium Code(s): D72.829 - ELEVATED WHITE BLOOD CELL COUNT, UNSPECIFIED SNOMED Code(s): 365622508 (2) Chronic myelocytic leukemia Current Visit: Yes Status: Chronic Priority: Medium Code(s): C92.10 - CHRONIC MYELOID LEUK, BCR/ABL-POSITIVE, NOT ACHIEVE REMIS SNOMED Code(s): 63808195 Plan: CML, leukocytosis - Diagnosis and treatment as described in HPI -WBC elevated on admit, mostly neutrophilia, suspect in part, secondary to infection. -BCR ABL quantitative laboratory investigation ordered. Pending results, further recommendations to follow -Agree with continuing Gleevec at this time. -Agree with treating infection Anemia - Likely related to chronic kidney disease - Hemoglobin in a safe range at this time, actually slightly better then baseline right now.
[2025-02-01 06:11] LABS: Basophils # (A) 0.05 10*3/uL (0.00-0.10); Basophils % (A) 0.3 %; Eosinophils # (A) 0.45 10*3/uL (0.04-0.35); HCT 31.2 % (39.6-50.0); HGB 10.6 g/dL (13.0-17.0); Lymphocytes # (A) 1.79 10*3/uL (0.90-5.00); MCH 32.3 pg (27.0-32.0); MCV 95.1 fL (80.0-97.0); Mean Platelet Volume 10.6 fL (9.5-12.2); Monocytes # (A) 1.22 10*3/uL (0.20-1.00); Monocytes % (A) 8.2 %; Neutrophils # (A) 10.93 10*3/uL (1.80-7.70); Neutrophils % (A) 73.5 %; Platelet Count 287 10*3/uL (140-440); RBC 3.28 10*6/uL (4.40-5.60); RDW 14.5 % (11.5-14.5); WBC 14.88 10*3/uL (4.50-10.00)
[2025-02-01 06:31] LABS: Glucose,Whole Blood 147 mg/dL (70-110)
--- NOTE | 2025-02-01 10:32 | P.PN ---
Subjective Patient is seen in follow-up for acute kidney injury on chronic kidney disease. Receiving IV fluids. Oral intake remains poor. Denies any vomiting today. Has a Garcia catheter for urinary retention. Nonoliguric. Renal function has been improving. Vital signs are stable. General: No acute distress. HEENT: Head exam is unremarkable. LUNGS: No audible rhonchi or wheezes. HEART: Rate and Rhythm are regular. ABDOMEN: Obese, nontender. EXTREMITITES: No edema. Objective - Vital Signs Vital signs: Vital Signs Temp 97.8 F 02/01/25 06:57 Pulse 87 02/01/25 06:57 Resp 17 02/01/25 06:57 BP 134/64 02/01/25 06:57 Pulse Ox 97 02/01/25 06:57 FiO2 Intake & Output 01/31/25 02/01/25 02/01/25 18:59 06:59 18:59 Intake Total 10 Output Total 700 875 400 Balance -302 -525 -400 Intake: IV 10 Invasive Line 3 10 Output: Urine 700 875 400 Other: Voiding Method Indwelling Catheter Indwelling Catheter # Voids 1 # Bowel Movements 9 - Labs CBC & Chem 7: 02/01/25 05:36 01/31/25 05:44 Labs: Abnormal Lab Results - Last 24 Hours (Table) 01/31/25 01/31/25 01/31/25 Range/Units 11:26 16:33 21:08 WBC (4.50-10.00) 10*3/uL RBC (4.40-5.60) 10*6/uL Hgb (13.0-17.0) g/dL Hct (39.6-50.0) % MCH (27.0-32.0) pg Immature Gran # (0.00-0.04) 10*3/uL Neutrophils # (1.80-7.70) 10*3/uL Monocytes # (0.20-1.00) 10*3/uL Eosinophils # (0.04-0.35) 10*3/uL POC Glucose (mg/dL) 161 H 139 H 279 H (70-110) mg/dL 02/01/25 02/01/25 Range/Units 05:36 06:30 WBC 14.88 H (4.50-10.00) 10*3/uL RBC 3.28 L (4.40-5.60) 10*6/uL Hgb 10.6 L (13.0-17.0) g/dL Hct 31.2 L (39.6-50.0) % MCH 32.3 H (27.0-32.0) pg Immature Gran # 0.44 H (0.00-0.04) 10*3/uL Neutrophils # 10.93 H (1.80-7.70) 10*3/uL Monocytes # 1.22 H (0.20-1.00) 10*3/uL Eosinophils # 0.45 H (0.04-0.35) 10*3/uL POC Glucose (mg/dL) 147 H (70-110) mg/dL Assessment and Plan Plan: Assessment: 1. Acute kidney injury secondary to ATN secondary to overdiuresis, infection and urinary retention. Creatinine peaked at 4.0 this admission and improved to 2.5 yesterday. No hydronephrosis noted on kidney ultrasound. 2. Chronic kidney disease stage IV with baseline creatinine 2-2.5 secondary to diabetic kidney disease. 3. Hypokalemia from diuresis. Replaced. 4. Hypovolemic hyponatremia improved with IV hydration. 5. Chronic diastolic CHF. 6. Hypertension with chronic kidney disease. Controlled. 7. Urinary retention status post Garcia catheter placement. On Flomax. Urology following. Patient to be discharged with Garcia catheter. 8. UTI on antibiotics. Plan: Continue to hold diuretics. Maintain IV fluids. Continue to monitor renal function and urine output. Hold hydralazine for systolic blood pressure less than 120.
[2025-02-01 10:47] LABS: BUN/Creat Ratio 42.67 Ratio (12.00-20.00); Blood Urea Nitrogen 89.6 mg/dL (9.0-27.0); Calcium 7.8 mg/dL (8.7-10.3); Carbon Dioxide 20.1 mmol/L (21.6-31.8); Chloride 106 mmol/L (96-109); Glucose 141 mg/dL (70-110); Magnesium 2.1 mg/dL (1.5-2.4); Potassium 3.8 mmol/L (3.5-5.5); Sodium 135 mmol/L (135-145)
[2025-02-01 11:39] LABS: Glucose,Whole Blood 178 mg/dL (70-110)
[2025-02-01 15:39] VITALS: BMI 35.6
[2025-02-01 16:45] LABS: Glucose,Whole Blood 231 mg/dL (70-110)
[2025-02-01 20:29] LABS: Glucose,Whole Blood 264 mg/dL (70-110)
--- NOTE | 2025-02-02 03:57 | PN ---
PROGRESS NOTE CHIEF COMPLAINT: Nausea, vomiting, renal failure, diabetes, and CML. HISTORY OF PRESENT ILLNESS: This gentleman is doing fairly well. He is not vomiting. His white count is coming down to around 14,000 now. This does not represent leukemia. His renal function is also improving with his GFR rising above 20. PHYSICAL EXAMINATION: LUNGS: Breath sounds are diminished. CARDIAC: Unchanged. ABDOMEN: Soft and nontender. EXTREMITIES: Normal. IMPRESSION: 1. Chronic kidney disease. 2. Congestive heart failure. 3. Insulin-dependent diabetes mellitus. 4. Chronic myelogenous leukemia. PLAN: He is doing well and he could probably go back to the senior living anytime he is cleared. MMODL / IJN: [id number] /
[2025-02-02 06:07] LABS: Glucose,Whole Blood 157 mg/dL (70-110)
[2025-02-02 09:24] LABS: BUN/Creat Ratio 40.45 Ratio (12.00-20.00); Blood Urea Nitrogen 80.9 mg/dL (9.0-27.0); Calcium 7.7 mg/dL (8.7-10.3); Carbon Dioxide 19.8 mmol/L (21.6-31.8); Chloride 108 mmol/L (96-109); Glucose 142 mg/dL (70-110); Potassium 3.6 mmol/L (3.5-5.5); Sodium 136 mmol/L (135-145)
--- NOTE | 2025-02-02 10:30 | P.PN ---
Progress Note - Text Progress Note Date: 02/02/25 The patient was seen by Dr. Pablo for large volume urine retention (3000 mL) the patient is improving. He should go home with a catheter and follow-up with Dr. Pablo for cystoscopy and CMG. I have given the our card. It has been ordered to make a follow-up appointment for the patient with Dr. Pablo.
[2025-02-02 11:37] LABS: Glucose,Whole Blood 196 mg/dL (70-110)
[2025-02-02] MEDS: POTASSIUM CHLORIDE ER 20 MEQ TAB.ER PO ONE (11:57)
--- NOTE | 2025-02-02 12:38 | P.PN ---
Subjective Patient is seen for follow-up for chronic kidney disease and acute kidney injury Receiving IV fluids Trying to increase oral intake Has Garcia catheter for urine retention Serum creatinine stable at about 2.1 to 2.0 mg/dL. Objective - Vital Signs Vital signs: Vital Signs Temp 98 F 02/02/25 07:05 Pulse 91 02/02/25 07:05 Resp 18 02/02/25 07:05 BP 150/61 02/02/25 07:05 Pulse Ox 98 02/02/25 07:05 FiO2 Intake & Output 02/01/25 02/02/25 02/02/25 18:59 06:59 18:59 Intake Total 10 Output Total 1225 525 Balance -1215 -525 Weight 116.12 kg Intake: IV 10 Invasive Line 3 10 Output: Urine 1225 525 Uretheral (Garcia) 425 Other: Voiding Method Indwelling Catheter Indwelling Catheter Indwelling Catheter # Bowel Movements 7 3 - Exam Patient is awake, comfortable, no acute distress Examination of the heart S1 and S2 Examination of the lungs bilateral breath sounds are heard Abdomen is soft obese Examination of lower extremities shows edema 1+ bilaterally, chronic skin changes 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 - Labs CBC & Chem 7: 02/01/25 05:36 02/02/25 04:08 Labs: Abnormal Lab Results - Last 24 Hours (Table) 02/01/25 02/01/25 02/02/25 Range/Units 16:44 20:27 04:08 Carbon Dioxide 19.8 L (21.6-31.8) mmol/L BUN 80.9 H (9.0-27.0) mg/dL Creatinine 2.0 H (0.6-1.5) mg/dL Est GFR (CKD-EPI) 34 L (>=60) BUN/Creatinine Ratio 40.45 H (12.00-20.00) Ratio Glucose 142 H (70-110) mg/dL POC Glucose (mg/dL) 231 H 264 H (70-110) mg/dL Calcium 7.7 L (8.7-10.3) mg/dL 02/02/25 02/02/25 Range/Units 06:05 11:35 Carbon Dioxide (21.6-31.8) mmol/L BUN (9.0-27.0) mg/dL Creatinine (0.6-1.5) mg/dL Est GFR (CKD-EPI) (>=60) BUN/Creatinine Ratio (12.00-20.00) Ratio Glucose (70-110) mg/dL POC Glucose (mg/dL) 157 H 196 H (70-110) mg/dL Calcium (8.7-10.3) mg/dL Assessment and Plan Assessment: 1. Acute kidney injury secondary to ATN secondary to overdiuresis, infection and urinary retention. Creatinine peaked at 4.0 this admission and improved to 2.0 today. Maintained on IV fluids. No hydronephrosis noted on kidney ultrasound. 2. Chronic kidney disease stage IV with baseline creatinine 2-2.5 secondary to diabetic kidney disease. 3. Hypokalemia from diuresis. Replaced. 4. Hypovolemic hyponatremia improved with IV hydration. 5. Chronic diastolic CHF. 6. Hypertension with chronic kidney disease. Controlled. 7. Urinary retention status post Garcia catheter placement. On Flomax. Urology following. Patient to be discharged with Garcia catheter. 8. UTI on antibiotics. Plan: Decrease IV fluids Continue to hold diuretics Encouraged increased oral intake Repeat labs in a.m.
[2025-02-02 16:37] LABS: Glucose,Whole Blood 236 mg/dL (70-110)
[2025-02-02 20:03] LABS: Glucose,Whole Blood 281 mg/dL (70-110)
[2025-02-03] MEDS: BACLOFEN 10 MG TAB PO PRN (01:46)
[2025-02-03] MEDS: BENZONATATE 100 MG CAP PO PRN (01:46)
[2025-02-03 06:02] LABS: Glucose,Whole Blood 154 mg/dL (70-110)
[2025-02-03 11:21] LABS: Glucose,Whole Blood 214 mg/dL (70-110)
--- NOTE | 2025-02-03 12:17 | P.PN ---
Subjective Patient is seen for follow-up for chronic kidney disease and acute kidney injury Receiving IV fluids Trying to increase oral intake Complaining of significant cough earlier today. Has Garcia catheter for urine retention Serum creatinine stable at about 2.1 to 2.0 mg/dL. Objective - Vital Signs Vital signs: Vital Signs Temp 97.9 F 02/03/25 07:39 Pulse 94 02/03/25 07:39 Resp 18 02/03/25 07:39 BP 100/60 02/03/25 07:39 Pulse Ox 99 02/03/25 07:39 FiO2 Intake & Output 02/02/25 02/03/25 02/03/25 18:59 06:59 18:59 Output Total 1300 653 Balance -1300 -653 Output: Urine 1300 650 Stool 3 Other: Voiding Method Indwelling Catheter Indwelling Catheter Indwelling Catheter # Bowel Movements 5 1 2 - Exam Patient is awake, comfortable, no acute distress Examination of the heart S1 and S2 Examination of the lungs bilateral breath sounds are heard Abdomen is soft obese Examination of lower extremities shows edema 1+ bilaterally, chronic skin changes 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 Acute kidney injury secondary to ATN secondary to overdiuresis, infection and urinary retention. Creatinine peaked at 4.0 this admission and improved to 2.0 . Maintained on IV fluids. No hydronephrosis noted on kidney ultrasound. 2. Chronic kidney disease stage IV with baseline creatinine 2-2.5 secondary to diabetic kidney disease. 3. Hypokalemia from diuresis. Replaced. 4. Hypovolemic hyponatremia improved with IV hydration. 5. Chronic diastolic CHF. 6. Hypertension with chronic kidney disease. Controlled. 7. Urinary retention status post Garcia catheter placement. On Flomax. Urology following. Patient to be discharged with Garcia catheter. 8. UTI on antibiotics. Plan: D/c IV fluids Continue to hold diuretics Encouraged increased oral intake Repeat labs in a.m.
[2025-02-03 16:28] LABS: Glucose,Whole Blood 235 mg/dL (70-110)
[2025-02-03 20:01] LABS: Glucose,Whole Blood 235 mg/dL (70-110)
--- NOTE | 2025-02-03 22:57 | PN ---
PROGRESS NOTE CHIEF COMPLAINT: Acute renal failure, diabetes, CHF, and CML. HISTORY OF PRESENT ILLNESS: This gentleman is doing better. His GFR is slowly rising. Sugars are under fairly good control. It is felt that he can probably go back to the intermediate in the first of the week. PHYSICAL EXAMINATION: CHEST: Clear. CARDIAC: Unchanged. ABDOMEN: Soft, nontender. IMPRESSION: 1. Acute on chronic renal failure. 2. Congestive heart failure. 3. Diabetes. 4. CML. PLAN: Possibly discharge on Tuesday back to [facility]. MMODL / IJN: [id number] /
[2025-02-04 06:13] LABS: Glucose,Whole Blood 123 mg/dL (70-110)
[2025-02-04 08:16] VITALS: BP 132/62; PULSE 86; RESP 17; TEMP 98.6
[2025-02-04 11:30] LABS: Glucose,Whole Blood 241 mg/dL (70-110)
--- NOTE | 2025-02-04 12:32 | DS ---
DISCHARGE SUMMARY CHIEF COMPLAINT: Nausea, vomiting, acute on chronic renal failure, uncontrolled diabetes, congestive heart failure. HISTORY OF PRESENT ILLNESS AND PHYSICAL EXAMINATION: Details of this man's history and physical can be found in the initial workup. LABORATORY STUDIES: While he was in the hospital, he had laboratory studies, details of which can be found in the laboratory section of his chart. COURSE IN THE HOSPITAL: After admission, he was placed on bedrest, started on intravenous fluids and seen and followed by Nephrology. His GFR did slowly rise. His white count was very high and he was seen by Hematology, but this came down spontaneously and it was felt that this was not an exacerbation of his CML. The Garcia catheter was placed and he will go back to the correction on this and will follow up with Urology later. FINAL DIAGNOSES: 1. Acute on chronic renal failure, stage 5. 2. Congestive heart failure. 3. Morbid obesity. 4. Chronic myeloid leukemia. 5. Urinary retention. 6. Urinary tract infection. OPERATIONS: None. CONSULTATIONS: Urology and Nephrology. HEBERT / ETHEL: [id number] /
--- NOTE | 2025-02-04 16:59 | P.PN ---
Subjective Patient is seen for follow-up for chronic kidney disease and acute kidney injury Status post IV fluids Trying to increase oral intake Complaining of significant cough earlier today. Has Garcia catheter for urine retention Serum creatinine stable at about 2.1 to 2.0 mg/dL. Objective - Vital Signs Vital signs: Vital Signs Temp 98.6 F 02/04/25 07:02 Pulse 86 02/04/25 07:02 Resp 17 02/04/25 07:02 BP 132/62 02/04/25 07:02 Pulse Ox 97 02/04/25 07:02 FiO2 Intake & Output 02/03/25 02/04/25 02/04/25 18:59 06:59 18:59 Intake Total 1000 Output Total 850 353 Balance -850 647 Intake: Oral 1000 Output: Urine 850 350 Stool 3 Other: Voiding Method Indwelling Catheter Indwelling Catheter Indwelling Catheter # Voids 7 # Bowel Movements 5 - Exam Patient is awake, comfortable, no acute distress Examination of the heart S1 and S2 Examination of the lungs bilateral breath sounds are heard Abdomen is soft obese Examination of lower extremities shows edema 1+ bilaterally, chronic skin changes 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 Acute kidney injury secondary to ATN secondary to overdiuresis, infection and urinary retention. Creatinine peaked at 4.0 this admission and improved to 2.0 . Status post IV fluids. No hydronephrosis noted on kidney ultrasound. 2. Chronic kidney disease stage IV with baseline creatinine 2-2.5 secondary to diabetic kidney disease. 3. Hypokalemia from diuresis. Replaced. 4. Hypovolemic hyponatremia improved with IV hydration. 5. Chronic diastolic CHF. 6. Hypertension with chronic kidney disease. Controlled. 7. Urinary retention status post Garcia catheter placement. On Flomax. Urology following. Patient to be discharged with Garcia catheter. 8. UTI on antibiotics. Plan: Continue to hold diuretics. Will need to resume as outpatient. Encouraged increased oral intake Repeat labs in a.m.
== END 2025-02-04 14:19 | DRG 689 ==
LOC: EC 14:59 → 4SSUR 17:21
PROVIDERS: ADMIT Family Medicine; ATTEND Family Medicine
DX: N39.0 Urinary tract infection, site not specified (principal); N17.0 Acute kidney failure with tubular necrosis; I13.2 Hypertensive heart and chronic kidney disease with heart failure and with stage 5 chronic kidney disease, or end stage renal disease; C92.10 Chronic myeloid leukemia, BCR/ABL-positive, not having achieved remission; N18.5 Chronic kidney disease, stage 5; E11.22 Type 2 diabetes mellitus with diabetic chronic kidney disease; E66.01 Morbid (severe) obesity due to excess calories; I50.32 Chronic diastolic (congestive) heart failure; I42.9 Cardiomyopathy, unspecified; E87.1 Hypo-osmolality and hyponatremia; Z79.4 Long term (current) use of insulin; R33.9 Retention of urine, unspecified; E78.5 Hyperlipidemia, unspecified; Z68.35 Body mass index [BMI] 35.0-35.9, adult; E86.1 Hypovolemia; E87.6 Hypokalemia; M10.9 Gout, unspecified; M19.041 Primary osteoarthritis, right hand; M19.042 Primary osteoarthritis, left hand; M17.0 Bilateral primary osteoarthritis of knee; T50.2X5A Adverse effect of carbonic-anhydrase inhibitors, benzothiadiazides and other diuretics, initial encounter; Z79.890 Hormone replacement therapy; Z79.899 Other long term (current) drug therapy; Z87.440 Personal history of urinary (tract) infections
CPT/HCPCS: 36415; 51702; 51798; 71046; 76770; 80048; 80053; 81001; 83735; 83880; 84132; 85025; 87040; 87324; 87636; 93005; 94640; 96361; 96365; 99291

== ENCOUNTER 2025-02-27 19:57 | Inpatient (IN) | payer OTHER, MEDICARE ==
[2025-02-27 20:33] LABS: Basophils % (A) 0.3 %; Eosinophils # (A) 0.01 10*3/uL (0.04-0.35); HCT 30.4 % (39.6-50.0); HGB 10.3 g/dL (13.0-17.0); Lymphocytes # (A) 1.88 10*3/uL (0.90-5.00); Lymphocytes % (A) 5.6 %; MCH 32.1 pg (27.0-32.0); MCHC 33.9 g/dL (32.0-37.0); MCV 94.7 fL (80.0-97.0); Mean Platelet Volume 9.8 fL (9.5-12.2); Monocytes # (A) 3.03 10*3/uL (0.20-1.00); Monocytes % (A) 8.9 %; Neutrophils # (A) 28.35 10*3/uL (1.80-7.70); Neutrophils % (A) 83.7 %; Platelet Count 277 10*3/uL (140-440); RBC 3.21 10*6/uL (4.40-5.60); RDW 16.7 % (11.5-14.5); WBC 33.87 10*3/uL (4.50-10.00)
--- NOTE | 2025-02-27 20:53 | XR ---
EXAMINATION TYPE: XR chest 2V DATE OF EXAM: 02/27/2025 8:35 PM COMPARISON: Chest radiographs from 01/25/2025. CLINICAL INDICATION: Male, 74 years old with history of cough; TECHNIQUE: XR chest 2V Frontal and lateral views of the chest. FINDINGS: Lungs/Pleura: There is no evidence of pleural effusion, focal consolidation, or pneumothorax. Pulmonary vascularity: Unremarkable. Heart/mediastinum: Cardiomediastinal silhouette is unremarkable. Musculoskeletal: No acute osseous pathology. IMPRESSION: Low lung volumes with a generalized hazy appearance which could represent atelectasis versus pulmonar y edema correlate with serum BNP. [facility], , 02/27/2025 8:51 PM
[2025-02-27 21:04] LABS: ALT 17 U/L (4-49); AST 23 U/L (17-59); African American GFR (CKD) 39 (>60 ml/min/1.73 sqM); Albumin 2.6 g/dL (3.5-5.0); Alkaline Phosphatase 114 U/L (38-126); Anion Gap 7 mmol/L; Blood Urea Nitrogen 56 mg/dL (9-20); Calcium 8.3 mg/dL (8.4-10.2); Carbon Dioxide 26 mmol/L (22-30); Chloride 105 mmol/L (98-107); Glucose 187 mg/dL (74-99); Non-African American GFR(CKD) 33 (>60 ml/min/1.73 sqM); Potassium 2.8 mmol/L (3.5-5.1); Sodium 138 mmol/L (137-145); Total Bilirubin 0.5 mg/dL (0.2-1.3); Total Protein 5.8 g/dL (6.3-8.2)
--- NOTE | 2025-02-27 21:36 | CT ---
EXAMINATION TYPE: CT abdomen pelvis wo con DATE OF EXAM: 02/27/2025 9:04 PM COMPARISON: 05/15/2017 CLINICAL INDICATION: Male, 74 years old with history of LLQ pain, diarrhea; llq pain, diarrhea TECHNIQUE: Axial CT abdomen pelvis wo con;Sagittal and coronal reformats were created on a separate workstation. Contrast used: mL of , (none if empty) Oral contrast used: without Oral Contrast (none if empty) CT DLP: 1886.4 mGycm, Automated exposure control for dose reduction was used. FINDINGS: LOWER CHEST: There is mildly measured size. Moderate coronary artery atherosclerosis. ABDOMEN LIVER: Unremarkable GALLBLADDER AND BILE DUCTS: The gallbladder is absent. PANCREAS: Unremarkable. SPLEEN: Unremarkable. ADRENAL GLANDS: Unremarkable. KIDNEYS AND URETERS: No evidence of hydronephrosis or obstructing renal calculus. The ureters are unr emarkable. PELVIS BLADDER: Garcia catheter in appropriate position. Bladder is nondistended. No evidence for wall thicke skyla or mass given limitations of exam. REPRODUCTIVE: Unremarkable. ABDOMEN & PELVIS STOMACH AND BOWEL: No evidence of bowel obstruction. Circumferential wall thickening of the cecum, as cending colon, transverse colon and descending colon sigmoid colon with direct engorgement. What is t hought to represent the appendix crossing midline is within normal limits. Second portion duodenal di verticulum present. PERITONEUM/RETROPERITONEUM: No evidence of pneumoperitoneum or free fluid. VASCULATURE: Moderate atherosclerotic calcifications are present throughout the abdominal aorta and i ts branches. No evidence of aortic aneurysm. MUSCULOSKELETAL: No acute osseous abnormalities. Moderate disc degeneration changes are present throu ghout the thoracolumbar spine. Fixation hardware throughout the spine with evidence of lucency around the L5 pedicle screws in the vertebral body. LYMPH NODES: No gross evidence for lymphadenopathy. SOFT TISSUE/ABDOMINAL WALL: Bilateral fat-containing inguinal hernias right greater than left. IMPRESSION: 1. Pancolitis without evidence for organizing fluid collection or free air. Correlate for C diff col itis. 2. Garcia catheter in appropriate position. 3. Moderate to severe coronary artery atherosclerosis. 4. Postsurgical changes of the spine with evidence of loosening at L5 involving the L5 pedicle screw s bilaterally. [facility], , 02/27/2025 9:34 PM
[2025-02-27] MEDS ORDERED: Potassium Replacement Protocol 1 EACH MISC MISCELLANE PRN (21:39)
--- NOTE | 2025-02-27 22:10 | ED ---
Recheck HPI - General Chief Complaint: Recheck/Abnormal Lab/Rx Stated Complaint: Abnormal labs Time Seen by Provider: 02/27/25 20:09 Source: EMS Mode of arrival: EMS Limitations: no limitations - History of Present Illness Initial Comments: 74-year-old male with history of CML, diabetes, hypertension, hyperlipidemia, CKD sent from [facility] for abnormal labs. He was noted to have a potassium of 2.9 and elevated white blood cell count of 20.8. Labs were drawn yesterday. Patient is complaining of diarrhea and left lower quadrant pain. States that the diarrhea has been ongoing since his last hospitalization, he was discharged from our facility on 02/04. He denies chest pain, difficulty breathing, cough, congestion, sore throat, nausea, vomiting. - Related Data Home Medications Medication Instructions Recorded Confirmed Famotidine 20 mg PO BID 04/12/23 02/28/25 Acetaminophen Tab [Tylenol] 650 mg PO Q6H PRN MDD 3gm 03/26/24 02/28/25 Imatinib Mesylate 300 mg PO HS 03/26/24 02/28/25 Magnesium Oxide [Magox 400] 400 mg PO DAILY 03/26/24 02/28/25 Tamsulosin [Flomax] 0.4 mg PO DAILY 03/26/24 02/28/25 Baclofen 5 mg PO Q8H PRN 04/26/24 02/28/25 Insulin Glargine,Hum.rec.anlog 20 units PO HS 05/21/24 02/28/25 [Lantus Solostar Pen] Ergocalciferol (Vitamin D2) 1,250 mcg PO MO 11/15/24 02/28/25 [Drisdol (50,000 Iu)] Insulin Aspart (Niacinamide) See Protocol SQ [facility] 11/15/24 02/28/25 [Fiasp 100 Unit/ml Flextouch Pen] L.acidoph,Paracasei, B.lactis 1 cap PO BID 11/15/24 02/28/25 [Probiotic] amLODIPine [Norvasc] 10 mg PO DAILY 11/15/24 02/28/25 Ondansetron [Zofran] 4 mg PO Q6H PRN 12/20/24 02/28/25 Sucralfate [Carafate] 1 gm PO [facility] 12/20/24 02/28/25 Sodium Zirconium Cyclosilicate 10 gm PO DAILY 01/06/25 02/28/25 [Lokelma] Insulin Aspart (Niacinamide) 4 units SQ TID-W/MEALS 01/25/25 02/28/25 [Fiasp 100 Unit/ml Flextouch Pen] Levothyroxine Sodium [Synthroid] 50 mcg PO DAILY 01/25/25 02/28/25 hydrALAZINE HCL 50 mg PO BID 01/25/25 02/28/25 Aranesp 60mcg/Ml 60 mcg SQ FR 02/28/25 02/28/25 Furosemide [Lasix] 40 mg PO BID 02/28/25 02/28/25 Magic Cup 1 dose PO BID 02/28/25 02/28/25 Potassium Chloride ER [K-Dur 20] 20 - 40 meq PO DIRECTED 02/28/25 02/28/25 Allergies Allergy/AdvReac Type Severity Reaction Status Date / Time TACOS Inhibitors Allergy Unknown Verified 02/28/25 11:04 codeine Allergy Unknown Verified 02/28/25 11:04 lisinopril Allergy Unknown Verified 02/28/25 11:04 oxycodone Allergy Unknown Verified 02/28/25 11:04 sulfamethoxazole Allergy Unknown Verified 02/28/25 11:04 [From Bactrim] trimethoprim [From Bactrim] Allergy Unknown Verified 02/28/25 11:04 TIDE LAUNDRY SOAP Allergy Severe Rash/Hives Uncoded 02/28/25 11:04 Review of Systems ROS Statement: Those systems with pertinent positive or pertinent negative responses have been documented in the HPI. ROS Other: All systems not noted in ROS Statement are negative. 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; IDDM type II, pt states he occasionally has hypoglycemia during middle of night, arthritis bilateral hands and occasionally in bilateral knees, gout R foot, WILLAM with CPAP use, chronic kidney disease stage 4 with baseline creatinine near 2 due to diabetic kidney disease and chronic interstitial nephritis, anemia History of Any Multi-Drug Resistant Organisms: ESBL Date of last positivie culture/infection: 11/15/24 MDRO Source:: urine Past Surgical History: Back Surgery, Cholecystectomy, Hernia Repair Additional Past Surgical History / Comment(s): 09/2019 bone marrow biopsy, incisional hernia, colonoscopy with benign polyps. Right cataract removal with IOL implant. PARATHYROIDECTOMY - July 2023 Past Anesthesia/Blood Transfusion Reactions: No Reported Reaction Past Psychological History: No Psychological Hx Reported Smoking Status: Never smoker Past Alcohol Use History: None Reported Past Drug Use History: None Reported - Past Family History Father Family Medical History: Diabetes Mellitus Additional Family Medical History / Comment(s): Father is 97 yrs old. Mother Family Medical History: Dementia Additional Family Medical History / Comment(s): Mother of dementia at the age of 85yrs. General Exam Limitations: no limitations General appearance: alert, in no apparent distress Head exam: Present: atraumatic, normocephalic, normal inspection Eye exam: Present: normal appearance, EOMI Neck exam: Present: normal inspection. Absent: meningismus Respiratory exam: Present: normal lung sounds bilaterally. Absent: respiratory distress, wheezes, rales, rhonchi, stridor Cardiovascular Exam: Present: regular rate, normal rhythm, normal heart sounds. Absent: systolic murmur, diastolic murmur, rubs, gallop, clicks Neurological exam: Present: alert, oriented X3 Psychiatric exam: Present: normal affect, normal mood Skin exam: Present: warm, dry Course Vital Signs 02/27/25 02/27/25 02/27/25 20:01 21:07 22:07 Temperature 98.9 F Pulse Rate 91 93 90 Respiratory 18 18 22 Rate Blood Pressure 117/58 133/60 133/57 O2 Sat by Pulse 96 97 97 Oximetry 02/27/25 02/28/25 23:16 01:27 Temperature 98.7 F Pulse Rate 93 92 Respiratory 20 20 Rate Blood Pressure 128/52 132/75 O2 Sat by Pulse 96 97 Oximetry Medical Decision Making - Medical Decision Making Was pt. sent in by a medical professional or institution (, PA, OFFICE SUPPORT CLERK, urgent care, hospital, or assisted...) When possible be specific @ -senior living Did you speak to anyone other than the patient for history (EMS, parent, family, police, friend...)? What history was obtained from this source @ -No Did you review nursing and triage notes (agree or disagree)? Why? @ -I reviewed and agree with nursing and triage notes Were old charts reviewed (outside hosp., previous admission, EMS record, old EKG, old radiological studies, urgent care reports/EKG's, assisted records)? Report findings @ -No old charts were reviewed Differential Diagnosis (chest pain, altered mental status, abdominal pain women, abdominal pain men, vaginal bleeding, weakness, fever, dyspnea, syncope, headache, dizziness, GI bleed, back pain, seizure, CVA, palpatations, mental health, musculoskeletal)? @ -MDM Differential Abdominal Pain Men: Appendicitis, cholecystitis, diverticulosis, ischemic bowel, pancreatitis, hepatitis, UTI, gastroenteritis, AAA, incarcerated hernia, bowel obstruction, constipation, inflammatory bowel, hepatitis, peptic ulcer disease, splenic infarction, perforated viscus, testicular torsion... This is not meant to be an all-inclusive list EKG interpreted by me (3pts min.). @ -As above X-rays interpreted by me (1pt min.). @ -Chest x-ray shows low lung volumes with a generalized hazy appearance which would represent atelectasis versus pulmonary edema correlate with serum BNP CT interpreted by me (1pt min.). @ -CT shows pancolitis without evidence for organizing fluid collection or free air. Correlate for C. difficile colitis. Garcia catheter in appropriate position. Moderate to severe coronary artery atherosclerosis. Postsurgical changes of the spine with evidence of loosening at L5 involving the L5 pedicle screws bilaterally. U/S interpreted by me (1pt. min.). @ -None done What testing was considered but not performed or refused? (CT, X-rays, U/S, labs)? Why? @ -None What meds were considered but not given or refused? Why? @ -None Did you discuss the management of the patient with other professionals (professionals i.e. DrLevy, PA, OFFICE SUPPORT CLERK, lab, RT, psych nurse, psychosocial rehabilitation counselor, electrical prospecting supervisor, teacher, juvenile correctional officer, case hardener)? Give summary @ -My attending spoke with Dr. Castellano who accepts admission Was smoking cessation discussed for >3mins.? @ -No Was critical care preformed (if so, how long)? @ -No Were there social determinants of health that impacted care today? How? ( Homelessness, low income, unemployed, alcoholism, drug addiction, transportation, low edu. Level, literacy, decrease access to med. care, custodial, rehab)? @ -No Was there de-escalation of care discussed even if they declined (Discuss DNR or withdrawal of care, Hospice)? DNR status @ -No What co-morbidities impacted this encounter? (DM, HTN, Smoking, COPD, CAD, Cancer, CVA, ARF, Chemo, Hep., AIDS, mental health diagnosis, sleep apnea, morbid obesity)? @ -None Was patient admitted / discharged? Hospital course, mention meds given and route, prescriptions, significant lab abnormalities, going to OR and other pertinent info. @ -74-year-old male sent from assisted for abnormal labs. He had hypokalemia and elevated white blood cell count at the assisted. Here his potassium is 2.8. Patient has been having left lower quadrant pain and diarrhea. He is receiving IV potassium replacement. White count is 33.87. CT shows pancolitis correlate for C. difficile. C. difficile testing is pending at this time. BUN 56 creatinine 1.91, consistent with the patient's baseline and actually improved from recent values. Urine shows large leukocytes with 51 white blood cells, patient will be treated with Zosyn to cover for UTI and colitis considering that we do not have C. difficile results at this time, can be changed by the admitting service based on C. difficile results. Patient is agreeable with plan for admission. I discussed this case with my attending Dr. Correa Undiagnosed new problem with uncertain prognosis? @ -No Drug Therapy requiring intensive monitoring for toxicity (Heparin, Nitro, Insulin, Cardizem)? @ -No Were any procedures done? @ -No Diagnosis/symptom? @ -Hypokalemia, colitis, UTI Acute, or Chronic, or Acute on Chronic? @ -Acute Uncomplicated (without systemic symptoms) or Complicated (systemic symptoms)? @ -Complicated Side effects of treatment? @ -No Exacerbation, Progression, or Severe Exacerbation? @ -No Poses a threat to life or bodily function? How? (Chest pain, [place], [place], pneumonia, PE, COPD, DKA, ARF, appy, cholecystitis, CVA, Diverticulitis, Homicidal, Suicidal, threat to staff... and all critical care pts) @ -Yes - Lab Data Result diagrams: 02/28/25 05:24 02/28/25 09:22 Lab Results 02/27/25 02/27/25 02/27/25 Range/Units 20:20 20:20 20:20 WBC 33.87 H (4.50-10.00) 10*3/uL RBC 3.21 L (4.40-5.60) 10*6/uL Hgb 10.3 L (13.0-17.0) g/dL Hct 30.4 L (39.6-50.0) % MCV 94.7 (80.0-97.0) fL MCH 32.1 H (27.0-32.0) pg MCHC 33.9 (32.0-37.0) g/dL Plt Count 277 (140-440) 10*3/uL MPV 9.8 (9.5-12.2) fL Immature Gran % (Auto) 1.5 % Neutrophils % 83.7 % Lymphocytes % 5.6 % Monocytes % 8.9 % Eosinophils % 0.0 % Basophils % 0.3 % Immature Gran # 0.50 H (0.00-0.04) 10*3/uL Neutrophils # 28.35 H (1.80-7.70) 10*3/uL Lymphocytes # 1.88 (0.90-5.00) 10*3/uL Monocytes # 3.03 H (0.20-1.00) 10*3/uL Eosinophils # 0.01 L (0.04-0.35) 10*3/uL Basophils # 0.10 (0.00-0.10) 10*3/uL Manual Slide Review Performed Sodium 138 (137-145) mmol/L Potassium 2.8 L (3.5-5.1) mmol/L Chloride 105 (98-107) mmol/L Carbon Dioxide 26 (22-30) mmol/L Anion Gap 7 mmol/L BUN 56 H (9-20) mg/dL Creatinine 1.91 H (0.66-1.25) mg/dL Est GFR (CKD-EPI)AfAm 39 (>60 ml/min/1.73 sqM) Est GFR (CKD-EPI)NonAf 33 (>60 ml/min/1.73 sqM) Glucose 187 H (74-99) mg/dL Plasma Lactic Acid Michael 1.1 (0.7-2.0) mmol/L Calcium 8.3 L (8.4-10.2) mg/dL Total Bilirubin 0.5 (0.2-1.3) mg/dL AST 23 (17-59) U/L ALT 17 (4-49) U/L Alkaline Phosphatase 114 (38-126) U/L Total Protein 5.8 L (6.3-8.2) g/dL Albumin 2.6 L (3.5-5.0) g/dL Urine Color Urine Appearance (Clear) Urine pH (5.0-8.0) Ur Specific [place] (1.001-1.035) Urine Protein (Negative) Urine Glucose (UA) (Negative) Urine Ketones (Negative) Urine Blood (Negative) Urine Nitrite (Negative) Urine Bilirubin (Negative) Urine Urobilinogen (<2.0) mg/dL Ur Leukocyte Esterase (Negative) Urine RBC (0-5) /hpf Urine WBC (0-5) /hpf Urine WBC Clumps (None) /hpf Ur Squamous Epith Cells (0-4) /hpf Urine Bacteria (None) /hpf Urine Mucus (None) /hpf 02/27/25 Range/Units 22:05 WBC (4.50-10.00) 10*3/uL RBC (4.40-5.60) 10*6/uL Hgb (13.0-17.0) g/dL Hct (39.6-50.0) % MCV (80.0-97.0) fL MCH (27.0-32.0) pg MCHC (32.0-37.0) g/dL Plt Count (140-440) 10*3/uL MPV (9.5-12.2) fL Immature Gran % (Auto) % Neutrophils % % Lymphocytes % % Monocytes % % Eosinophils % % Basophils % % Immature Gran # (0.00-0.04) 10*3/uL Neutrophils # (1.80-7.70) 10*3/uL Lymphocytes # (0.90-5.00) 10*3/uL Monocytes # (0.20-1.00) 10*3/uL Eosinophils # (0.04-0.35) 10*3/uL Basophils # (0.00-0.10) 10*3/uL Manual Slide Review Sodium (137-145) mmol/L Potassium (3.5-5.1) mmol/L Chloride (98-107) mmol/L Carbon Dioxide (22-30) mmol/L Anion Gap mmol/L BUN (9-20) mg/dL Creatinine (0.66-1.25) mg/dL Est GFR (CKD-EPI)AfAm (>60 ml/min/1.73 sqM) Est GFR (CKD-EPI)NonAf (>60 ml/min/1.73 sqM) Glucose (74-99) mg/dL Plasma Lactic Acid Michael (0.7-2.0) mmol/L Calcium (8.4-10.2) mg/dL Total Bilirubin (0.2-1.3) mg/dL AST (17-59) U/L ALT (4-49) U/L Alkaline Phosphatase (38-126) U/L Total Protein (6.3-8.2) g/dL Albumin (3.5-5.0) g/dL Urine Color Yellow Urine Appearance Cloudy (Clear) Urine pH 5.0 (5.0-8.0) Ur Specific [place] 1.012 (1.001-1.035) Urine Protein 1+ H (Negative) Urine Glucose (UA) Negative (Negative) Urine Ketones Negative (Negative) Urine Blood Negative (Negative) Urine Nitrite Negative (Negative) Urine Bilirubin Negative (Negative) Urine Urobilinogen <2.0 (<2.0) mg/dL Ur Leukocyte Esterase Large H (Negative) Urine RBC 1 (0-5) /hpf Urine WBC 51 H (0-5) /hpf Urine WBC Clumps Occasional H (None) /hpf Ur Squamous Epith Cells <1 (0-4) /hpf Urine Bacteria Rare H (None) /hpf Urine Mucus Rare H (None) /hpf Disposition Clinical Impression: UTI (urinary tract infection), Hypokalemia, Colitis Disposition: ADMITTED IP TO THIS [facility] Condition: Fair Time of Disposition: 23:16
[2025-02-27 22:40] LABS: Appearance,Urine Cloudy (Clear); Bilirubin,Urine Negative (Negative); Color,Urine Yellow; Glucose,Urine (UA) Negative (Negative); Ketones,Urine Negative (Negative); Protein,Urine 1+ (Negative); Specific Gravity,Urine 1.012 (1.001-1.035)
[2025-02-27 22:41] LABS: Bacteria,Urine Rare /hpf; Blood,Urine Negative (Negative); Leukocyte Esterase,Urine Large (Negative); Mucus,Urine Rare /hpf; Nitrite,Urine Negative (Negative); RBC,Urine 1 /hpf (0-5); Squamous Epithelial Cell,Urine <1 /hpf (0-4); Urobilinogen,Urine <2.0 mg/dL (<2.0); WBC,Urine 51 /hpf (0-5)
[2025-02-27] MEDS: POTASSIUM CHLORIDE 10 MEQ in WATER FOR INJECTION 1 100ML.BAG IVPB SCH (22:47)
[2025-02-27] MEDS ORDERED: NALOXONE 0.4 MG/ML 1 ML VIAL IV PRN (23:15)
[2025-02-27] MEDS: SODIUM CHLORIDE 0.9% 1,000 ML IV SCH (23:57)
[2025-02-27] MEDS: PIPERACILLIN-TAZOBACTAM 3.375 GM in SODIUM CHLORIDE 0.9% 100 ML IVPB STA (23:59)
[2025-02-28] MEDS: BENZONATATE 100 MG CAP PO PRN (05:04)
[2025-02-28] MEDS: ONDANSETRON 4 MG/2 ML VIAL IVP PRN (06:21)
[2025-02-28 06:45] LABS: Basophils # (A) 0.09 10*3/uL (0.00-0.10); Basophils % (A) 0.3 %; Eosinophils # (A) 0.01 10*3/uL (0.04-0.35); Lymphocytes # (A) 0.82 10*3/uL (0.90-5.00); MCHC 33.3 g/dL (32.0-37.0); MCV 95.9 fL (80.0-97.0); Mean Platelet Volume 10.3 fL (9.5-12.2); Monocytes # (A) 1.62 10*3/uL (0.20-1.00); Monocytes % (A) 5.9 %; Neutrophils # (A) 24.55 10*3/uL (1.80-7.70); Neutrophils % (A) 89.6 %; Platelet Count 276 10*3/uL (140-440); RBC 3.44 10*6/uL (4.40-5.60); RDW 16.8 % (11.5-14.5); WBC 27.41 10*3/uL (4.50-10.00)
[2025-02-28 07:12] LABS: ALT 17 U/L (4-49); AST 23 U/L (17-59); African American GFR (CKD) 36 (>60 ml/min/1.73 sqM); Albumin 2.5 g/dL (3.5-5.0); Alkaline Phosphatase 130 U/L (38-126); Anion Gap 10 mmol/L; Blood Urea Nitrogen 55 mg/dL (9-20); Calcium 8.5 mg/dL (8.4-10.2); Carbon Dioxide 24 mmol/L (22-30); Chloride 104 mmol/L (98-107); Glucose 149 mg/dL (74-99); Non-African American GFR(CKD) 31 (>60 ml/min/1.73 sqM); Potassium 2.8 mmol/L (3.5-5.1); Sodium 138 mmol/L (137-145); Total Bilirubin 0.8 mg/dL (0.2-1.3); Total Protein 5.7 g/dL (6.3-8.2)
[2025-02-28 07:23] LABS: Glucose,Whole Blood 173 mg/dL (70-110)
[2025-02-28] MEDS: VANCOMYCIN 125 MG CAPSULE PO SCH ×2 (08:25→21:59)
[2025-02-28] MEDS ORDERED: ONDANSETRON ODT 4 MG TAB PO PRN (10:30)
[2025-02-28] MEDS ORDERED: ACETAMINOPHEN TAB 325 MG TAB PO PRN (10:30)
[2025-02-28] MEDS ORDERED: EPOETIN ALFA EPBX SQ SCH (10:30)
--- NOTE | 2025-02-28 11:49 | P.NPCON ---
History of Present Illness - Reason for Consult chronic renal failure - History of Present Illness Reason for consultation: Chronic kidney disease History of present is: Patient is a 74-year-old male seen in renal consultation for chronic kidney disease. Patient has chronic kidney disease stage IV with baseline creatinine 2-2.5 secondary to diabetic kidney disease and cardiorenal syndrome. Patient came to the hospital due to abnormal blood work. Patient's potassium was noted to be low and white count was high. Patient states he was taking Lasix 40 mg orally twice daily and was increased by cardiology to 60 mg twice daily for about a week. I do see potassium supplementation in his home medication list but is unclear as to how much he was taking. Hemodynamically stable. He has a chronic Garcia catheter and follows with urology outpatient. The catheter was exchanged in the ER yesterday. He denies chest pain or shortness of breath. He has been having vomiting and diarrhea for the last several days. He did test positive for C. difficile. He is on oral vancomycin. Patient has longstanding history of diabetes. Vital signs are stable. General: No acute distress. HEENT: Head exam is unremarkable. LUNGS: No audible rhonchi or wheezes. HEART: Rate and Rhythm are regular. ABDOMEN: Nontender. EXTREMITITES: 1+ edema. 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; IDDM type II, pt states he occasionally has hypoglycemia during middle of night, arthritis bilateral hands and occasionally in bilateral knees, gout R foot, WILLAM with CPAP use, chronic kidney disease stage 4 with baseline creatinine near 2 due to diabetic kidney disease and chronic interstitial nephritis, anemia History of Any Multi-Drug Resistant Organisms: ESBL Date of last positivie culture/infection: 11/15/24 MDRO Source:: urine Past Surgical History: Back Surgery, Cholecystectomy, Hernia Repair Additional Past Surgical History / Comment(s): 09/2019 bone marrow biopsy, incisional hernia, colonoscopy with benign polyps. Right cataract removal with IOL implant. PARATHYROIDECTOMY - July 2023 Past Anesthesia/Blood Transfusion Reactions: No Reported Reaction Smoking Status: Never smoker - Past Family History Father Family Medical History: Diabetes Mellitus Additional Family Medical History / Comment(s): Father is 97 yrs old. Mother Family Medical History: Dementia Additional Family Medical History / Comment(s): Mother of dementia at the age of 85yrs. Medications and Allergies Home Medications Medication Instructions Recorded Confirmed Type Famotidine 20 mg PO BID 04/12/23 02/28/25 History Acetaminophen Tab [Tylenol] 650 mg PO Q6H PRN MDD 3gm 03/26/24 02/28/25 History Imatinib Mesylate 300 mg PO HS 03/26/24 02/28/25 History Magnesium Oxide [Magox 400] 400 mg PO DAILY 03/26/24 02/28/25 History Tamsulosin [Flomax] 0.4 mg PO DAILY 03/26/24 02/28/25 History Baclofen 5 mg PO Q8H PRN 04/26/24 02/28/25 History Insulin Glargine,Hum.rec.anlog 20 units PO HS 05/21/24 02/28/25 History [Lantus Solostar Pen] Ergocalciferol (Vitamin D2) 1,250 mcg PO MO 11/15/24 02/28/25 History [Drisdol (50,000 Iu)] Insulin Aspart (Niacinamide) See Protocol SQ [facility] 11/15/24 02/28/25 History [Fiasp 100 Unit/ml Flextouch Pen] L.acidoph,Paracasei, B.lactis 1 cap PO BID 11/15/24 02/28/25 History [Probiotic] amLODIPine [Norvasc] 10 mg PO DAILY 11/15/24 02/28/25 History Ondansetron [Zofran] 4 mg PO Q6H PRN 12/20/24 02/28/25 History Sucralfate [Carafate] 1 gm PO ACHS 12/20/24 02/28/25 History Sodium Zirconium Cyclosilicate 10 gm PO DAILY 01/06/25 02/28/25 History [Lokelma] Insulin Aspart (Niacinamide) 4 units SQ TID-W/MEALS 01/25/25 02/28/25 History [Fiasp 100 Unit/ml Flextouch Pen] Levothyroxine Sodium [Synthroid] 50 mcg PO DAILY 01/25/25 02/28/25 History hydrALAZINE HCL 50 mg PO BID 01/25/25 02/28/25 History Aranesp 60mcg/Ml 60 mcg SQ FR 02/28/25 02/28/25 History Furosemide [Lasix] 40 mg PO BID 02/28/25 02/28/25 History Magic Cup 1 dose PO BID 02/28/25 02/28/25 History Potassium Chloride ER [K-Dur 20] 20 - 40 meq PO DIRECTED 02/28/25 02/28/25 History Allergies Allergy/AdvReac Type Severity Reaction Status Date / Time TACOS Inhibitors Allergy Unknown Verified 02/28/25 11:04 codeine Allergy Unknown Verified 02/28/25 11:04 lisinopril Allergy Unknown Verified 02/28/25 11:04 oxycodone Allergy Unknown Verified 02/28/25 11:04 sulfamethoxazole Allergy Unknown Verified 02/28/25 11:04 [From Bactrim] trimethoprim [From Bactrim] Allergy Unknown Verified 02/28/25 11:04 TIDE LAUNDRY SOAP Allergy Severe Rash/Hives Uncoded 02/28/25 11:04 Physical Exam Vitals: Vital Signs Temp Pulse Pulse Resp BP BP Pulse Ox 02/28/25 07:21 98.4 F 115 H 22 143/61 98 02/28/25 02:00 97.6 F 97 16 133/69 100 02/28/25 01:27 98.7 F 92 20 132/75 97 02/27/25 23:16 93 20 128/52 96 02/27/25 22:07 90 22 133/57 97 02/27/25 21:07 93 18 133/60 97 02/27/25 20:01 98.9 F 91 18 117/58 96 Intake and Output 02/27/25 02/28/25 02/28/25 22:59 06:59 14:59 Intake Total 540 Output Total 550 Balance -10 Intake: Oral 540 Output: Urine 200 Emesis 350 Other: Voiding Method Indwelling Catheter Indwelling Catheter # Bowel Movements 2 Weight 126.598 kg 126.598 kg Results - Lab Results Most recent lab results Calcium 8.5 mg/dL (8.4-10.2) 02/28/25 05:24 Magnesium 1.9 mg/dL (1.6-2.3) 02/27/25 23:22 02/28/25 05:24 02/28/25 09:22 Assessment and Plan Plan: Assessment: 1. Chronic kidney disease stage IV secondary to diabetic kidney disease and cardiorenal syndrome with baseline creatinine 2-2.5. GFR at baseline. 2. Hypokalemia from diuresis. Magnesium normal. Being replaced. 3. Diabetes mellitus. 4. C. difficile colitis on oral vancomycin. 5. Hypertension with chronic kidney disease. Stable. Plan: Resume Lasix at dose of 40 mg orally once daily. Potassium being replaced. Avoid nephrotoxins. Continue to monitor renal function and urine output. Patient has a chronic Garcia catheter and follows with urology outpatient. Catheter was exchanged February 27, 2025 in the ER. Thank you for the consultation. I will continue to follow the patient with you during his hospital stay.
[2025-02-28 12:10] LABS: Glucose,Whole Blood 245 mg/dL (70-110)
[2025-02-28] MEDS: INSULIN LISPRO (HumaLOG) 100 UNIT/ML 10 mL VL SQ SCH (14:19)
[2025-02-28] MEDS: POTASSIUM CHLORIDE ER 10 MEQ TAB.ER.PRT PO SCH (14:19)
[2025-02-28] MEDS: SUCRALFATE 1 GM TAB PO SCH (14:19)
[2025-02-28] MEDS: FUROSEMIDE 40 MG TAB PO SCH (14:19)
--- NOTE | 2025-02-28 16:56 | P.CONS ---
History of Present Illness - Reason for Consult Consult date: 02/28/25 CML, leukocytosis Requesting physician: Dwayne Castellano - Chief Complaint c-diff - History of Present Illness Mr. Ascencio is a pleasant 74-year-old male patient of Dr. Kidd, initially seen in 2018 when he was referred for persistent leukocytosis on routine blood work. 02/08/2019 CBC revealed WBC of 11.6, mild neutrophilia, normal hemoglobin and platelet counts, CMP showed a creatinine of 1.69 with a normal TSH. Prior CBCs from 2017 and 2017 were unremarkable. 08/15/2019 BCR/ABL on peripheral blood was positive, flow cytometry would be revealed slight increase in CD8. 09/28/2019 bone marrow biopsy and aspirate with cytogenetics were consistent with CML. Patient was started on Gleevec October 01, 2019. Patient was on Gleevac and in August 2020 BCR, ABL by FISH was negative. It has been negative ever since. Patient last had a telehealth visit in June 2024. Last BCR-ABL I found was from April 2024 and it was negative. There was another one drawn later last year, I am unable to find the results of that. Patient was admitted in mid January with dehydration. BCR-ABL was tested at that time, no Palmer chromosome seen. Patient did have a follow-up with Dr. Kidd scheduled for next week. Patient has continued on Gleevec and done well. Patient is currently admitted with c-diff infection. No fevers, N,V, abd pain or cramping, some mild distension, denies rectal pain or bleeding. 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; IDDM type II, pt states he occasionally has hypoglycemia during middle of night, arthritis bilateral hands and occasionally in bilateral knees, gout R foot, WILLAM with CPAP use, chronic kidney disease stage 4 with baseline creatinine near 2 due to diabetic kidney disease and chronic interstitial nephritis, anemia History of Any Multi-Drug Resistant Organisms: ESBL Year Discovered:: 11/15/24 MDRO Source:: urine Past Surgical History: Back Surgery, Cholecystectomy, Hernia Repair Additional Past Surgical History / Comment(s): 09/2019 bone marrow biopsy, incisional hernia, colonoscopy with benign polyps. Right cataract removal with IOL implant. PARATHYROIDECTOMY - July 2023 Past Anesthesia/Blood Transfusion Reactions: No Reported Reaction Smoking Status: Never smoker - Past Family History Father Family Medical History: Diabetes Mellitus Additional Family Medical History / Comment(s): Father is 97 yrs old. Mother Family Medical History: Dementia Additional Family Medical History / Comment(s): Mother of dementia at the age of 85yrs. Medications and Allergies Home Medications Medication Instructions Recorded Confirmed Type Famotidine 20 mg PO BID 04/12/23 02/28/25 History Acetaminophen Tab [Tylenol] 650 mg PO Q6H PRN MDD 3gm 03/26/24 02/28/25 History Imatinib Mesylate 300 mg PO HS 03/26/24 02/28/25 History Magnesium Oxide [Magox 400] 400 mg PO DAILY 03/26/24 02/28/25 History Tamsulosin [Flomax] 0.4 mg PO DAILY 03/26/24 02/28/25 History Baclofen 5 mg PO Q8H PRN 04/26/24 02/28/25 History Insulin Glargine,Hum.rec.anlog 20 units PO HS 05/21/24 02/28/25 History [Lantus Solostar Pen] Ergocalciferol (Vitamin D2) 1,250 mcg PO MO 11/15/24 02/28/25 History [Drisdol (50,000 Iu)] Insulin Aspart (Niacinamide) See Protocol [facility] 11/15/24 02/28/25 History [Fiasp 100 Unit/ml Flextouch Pen] L.acidoph,Paracasei, B.lactis 1 cap PO BID 11/15/24 02/28/25 History [Probiotic] amLODIPine [Norvasc] 10 mg PO DAILY 11/15/24 02/28/25 History Ondansetron [Zofran] 4 mg PO Q6H PRN 12/20/24 02/28/25 History Sucralfate [Carafate] 1 gm PO ACHS 12/20/24 02/28/25 History Sodium Zirconium Cyclosilicate 10 gm PO DAILY 01/06/25 02/28/25 History [Lokelma] Insulin Aspart (Niacinamide) 4 units SQ TID-W/MEALS 01/25/25 02/28/25 History [Fiasp 100 Unit/ml Flextouch Pen] Levothyroxine Sodium [Synthroid] 50 mcg PO DAILY 01/25/25 02/28/25 History hydrALAZINE HCL 50 mg PO BID 01/25/25 02/28/25 History Aranesp 60mcg/Ml 60 mcg SQ FR 02/28/25 02/28/25 History Furosemide [Lasix] 40 mg PO BID 02/28/25 02/28/25 History Magic Cup 1 dose PO BID 02/28/25 02/28/25 History Potassium Chloride ER [K-Dur 20] 20 - 40 meq PO DIRECTED 02/28/25 02/28/25 History Allergies Allergy/AdvReac Type Severity Reaction Status Date / Time TACOS Inhibitors Allergy Unknown Verified 02/28/25 11:04 codeine Allergy Unknown Verified 02/28/25 11:04 lisinopril Allergy Unknown Verified 02/28/25 11:04 oxycodone Allergy Unknown Verified 02/28/25 11:04 sulfamethoxazole Allergy Unknown Verified 02/28/25 11:04 [From Bactrim] trimethoprim [From Bactrim] Allergy Unknown Verified 02/28/25 11:04 TIDE LAUNDRY SOAP Allergy Severe Rash/Hives Uncoded 02/28/25 11:04 Physical Exam Vitals: Vital Signs Temp Pulse Pulse Resp BP BP Pulse Ox 02/28/25 12:07 99 F 95 20 114/61 95 02/28/25 07:21 98.4 F 115 H 22 143/61 98 02/28/25 02:00 97.6 F 97 16 133/69 100 02/28/25 01:27 98.7 F 92 20 132/75 97 02/27/25 23:16 93 20 128/52 96 02/27/25 22:07 90 22 133/57 97 02/27/25 21:07 93 18 133/60 97 02/27/25 20:01 98.9 F 91 18 117/58 96 Intake and Output 02/27/25 02/28/25 02/28/25 22:59 06:59 14:59 Intake Total 540 Output Total 550 Balance -10 Intake: Oral 540 Output: Urine 200 Emesis 350 Other: Voiding Method Indwelling Catheter Indwelling Catheter # Bowel Movements 2 Weight 126.598 kg 126.598 kg - Constitutional General appearance: cooperative, no acute distress, obese - EENT Eyes: anicteric sclerae, EOMI ENT: hearing grossly normal - Respiratory resp unlabored at rest leg Peripheral Edema: bilateral: Trace - Integumentary Integumentary: pale - Neurologic Neurologic: CNII-XII intact - Musculoskeletal Musculoskeletal: generalized weakness - Psychiatric Psychiatric: A&O x's 3, appropriate affect, intact judgment & insight Results CBC & Chem 7: 02/28/25 05:24 02/28/25 09:22 Labs: Abnormal Lab Results - Last 24 Hours (Table) 02/27/25 02/27/25 02/27/25 Range/Units 20:20 20:20 22:05 WBC 33.87 H (4.50-10.00) 10*3/uL RBC 3.21 L (4.40-5.60) 10*6/uL Hgb 10.3 L (13.0-17.0) g/dL Hct 30.4 L (39.6-50.0) % MCH 32.1 H (27.0-32.0) pg Immature Gran # 0.50 H (0.00-0.04) 10*3/uL Neutrophils # 28.35 H (1.80-7.70) 10*3/uL Lymphocytes # (0.90-5.00) 10*3/uL Monocytes # 3.03 H (0.20-1.00) 10*3/uL Eosinophils # 0.01 L (0.04-0.35) 10*3/uL Potassium 2.8 L (3.5-5.1) mmol/L BUN 56 H (9-20) mg/dL Creatinine 1.91 H (0.66-1.25) mg/dL Glucose 187 H (74-99) mg/dL POC Glucose (mg/dL) (70-110) mg/dL Calcium 8.3 L (8.4-10.2) mg/dL Alkaline Phosphatase (38-126) U/L Total Protein 5.8 L (6.3-8.2) g/dL Albumin 2.6 L (3.5-5.0) g/dL Urine Protein 1+ H (Negative) Ur Leukocyte Esterase Large H (Negative) Urine WBC 51 H (0-5) /hpf Urine WBC Clumps Occasional H (None) /hpf Urine Bacteria Rare H (None) /hpf Urine Mucus Rare H (None) /hpf C. difficile (EIA) Intrp (Negative) 02/28/25 02/28/25 02/28/25 Range/Units 00:00 05:24 05:24 WBC 27.41 H (4.50-10.00) 10*3/uL RBC 3.44 L (4.40-5.60) 10*6/uL Hgb 11.0 L (13.0-17.0) g/dL Hct 33.0 L (39.6-50.0) % MCH (27.0-32.0) pg Immature Gran # 0.32 H (0.00-0.04) 10*3/uL Neutrophils # 24.55 H (1.80-7.70) 10*3/uL Lymphocytes # 0.82 L (0.90-5.00) 10*3/uL Monocytes # 1.62 H (0.20-1.00) 10*3/uL Eosinophils # 0.01 L (0.04-0.35) 10*3/uL Potassium 2.8 L (3.5-5.1) mmol/L BUN 55 H (9-20) mg/dL Creatinine 2.03 H (0.66-1.25) mg/dL Glucose 149 H (74-99) mg/dL POC Glucose (mg/dL) (70-110) mg/dL Calcium (8.4-10.2) mg/dL Alkaline Phosphatase 130 H (38-126) U/L Total Protein 5.7 L (6.3-8.2) g/dL Albumin 2.5 L (3.5-5.0) g/dL Urine Protein (Negative) Ur Leukocyte Esterase (Negative) Urine WBC (0-5) /hpf Urine WBC Clumps (None) /hpf Urine Bacteria (None) /hpf Urine Mucus (None) /hpf C. difficile (EIA) Intrp Positive A (Negative) 02/28/25 02/28/25 02/28/25 Range/Units 07:22 09:22 12:09 WBC (4.50-10.00) 10*3/uL RBC (4.40-5.60) 10*6/uL Hgb (13.0-17.0) g/dL Hct (39.6-50.0) % MCH (27.0-32.0) pg Immature Gran # (0.00-0.04) 10*3/uL Neutrophils # (1.80-7.70) 10*3/uL Lymphocytes # (0.90-5.00) 10*3/uL Monocytes # (0.20-1.00) 10*3/uL Eosinophils # (0.04-0.35) 10*3/uL Potassium 3.1 L (3.5-5.1) mmol/L BUN (9-20) mg/dL Creatinine (0.66-1.25) mg/dL Glucose (74-99) mg/dL POC Glucose (mg/dL) 173 H 245 H (70-110) mg/dL Calcium (8.4-10.2) mg/dL Alkaline Phosphatase (38-126) U/L Total Protein (6.3-8.2) g/dL Albumin (3.5-5.0) g/dL Urine Protein (Negative) Ur Leukocyte Esterase (Negative) Urine WBC (0-5) /hpf Urine WBC Clumps (None) /hpf Urine Bacteria (None) /hpf Urine Mucus (None) /hpf C. difficile (EIA) Intrp (Negative) Chest x-ray: report reviewed CT scan - abdomen: report reviewed CT scan - pelvis: report reviewed Assessment and Plan (1) Chronic myelocytic leukemia Current Visit: Yes Status: Chronic Priority: Medium Code(s): C92.10 - CHRONIC MYELOID LEUK, BCR/ABL-POSITIVE, NOT ACHIEVE REMIS SNOMED Code(s): 52028919 (2) Leukocytosis Current Visit: Yes Status: Acute Priority: Medium Code(s): D72.829 - ELEVATED WHITE BLOOD CELL COUNT, UNSPECIFIED SNOMED Code(s): 260912392 (3) C. difficile colitis Current Visit: Yes Status: Acute Code(s): A04.72 - ENTEROCOLITIS D/T CLOSTRIDIUM DIFFICILE, NOT SPCF RECUR SNOMED Code(s): 307470830 Plan: Chronic myeloid leukemia - Patient has been on Gleevec since 2019 . At his admission about 3 weeks ago patient was seen, BCR-ABL laboratory workup was ordered, there was no evidence of Palmer chromosome - It is reasonable to hold Gleevec while patient is acutely ill. -Patient will resume Gleevec at 300 mg daily upon his return to [facility] - Patient does have a follow-up with Dr. Kidd scheduled for next week. If patient is able, he will make that appointment. If he is still inpatient, we will find a new appointment for him. Leukocytosis - Mostly neutrophilia and immature granulocytes. Trending back, this is common in patient when he is acutely ill. He will have an exacerbated white count reaction to acute illness. It is already starting to trend down. -Monitor white blood cell count while inpatient. C. difficile infection - Patient is positive for C. difficile infection - He is on antibiotics
[2025-02-28 17:23] LABS: Glucose,Whole Blood 217 mg/dL (70-110)
[2025-02-28 20:56] LABS: Glucose,Whole Blood 138 mg/dL (70-110)
[2025-02-28 21:00] LABS: Influenza A Not Detected (Not Detectd); Influenza B Not Detected (Not Detectd); RSV Not Detected (Not Detectd)
[2025-02-28] MEDS: FAMOTIDINE 20 MG TAB PO SCH (21:55)
[2025-02-28] MEDS: INSULIN GLARGINE (LANTUS) 100 UNIT/ML SYR SQ SCH (21:56)
[2025-02-28] MEDS: hydrALAZINE HCL 50 MG TAB PO SCH (21:59)
[2025-02-28] MEDS ORDERED: ZINC OXIDE PASTE (Z-GUARD) 1 APPLIC TOPICAL PRN (23:06)
[2025-02-28] MEDS: MORPHINE SULFATE 4 MG/ML SYRINGE IV PRN (23:19)
--- NOTE | 2025-03-01 00:42 | HP ---
HISTORY AND PHYSICAL CHIEF COMPLAINT: Nausea, vomiting, diarrhea, fever and weakness. HISTORY OF PRESENT ILLNESS: Another admission for this 74-year-old white male. He has been in a shelter for over a year. He has congestive heart failure, acute myelogenous leukemia, morbid obesity, fracture of the right leg, and poorly controlled diabetes and congestive heart failure. He also has had a chronic bladder infection. I was called that he had a temperature with nausea, vomiting, diarrhea, and delirium and he was brought to the hospital. There, he was found to be hypokalemic. His white count was elevated. He was dehydrated. There was concern about possibility of sepsis, likely related to cystitis. REVIEW OF SYSTEMS: He is slightly lethargic, but he denies headaches, chest pain, shortness of breath, etc. He does have crampy abdominal pain. Past medical history, family history, personal and social histories are extensive and detailed in his previous hospital records. LABORATORY DATA: Laboratory studies; his white count was 20,800 with a hemoglobin of 10.2. Platelets were normal. Potassium low at 3.3 and sodium was normal. BUN was 72.6 with a creatinine 2.3 and GFR 29. He had a repeat potassium of 2.9. PHYSICAL EXAMINATION: VITAL SIGNS: Normal. HEAD, EARS, EYES, NOSE, AND THROAT: Revealed that he was dehydrated. GENERAL: He was awake and alert. CHEST: Clear. CARDIAC: Sound normal sinus tachycardia. ABDOMEN: Soft and nontender. EXTREMITIES: Normal. IMPRESSION: 1. Fever of unknown origin. 2. Nausea, vomiting, diarrhea. 3. Dehydration. 4. Renal failure. 5. Uncontrolled diabetes. 6. Acute myeloid leukemia. 7. Leukocytosis. 8. Chronic cystitis. PLAN: 1. Bed rest. 2. IV fluids. 3. Appropriate cultures. 4. Consult Oncology and Nephrology. 5. Rehydrate. MMODL / IJN: [id number] /
[2025-03-01] MEDS: BENZOCAINE/MENTHOL LOZENG 1 EACH LOZENGE MUCOUS MEM PRN (04:09)
[2025-03-01] MEDS: ACETAMINOPHEN TAB 325 MG TAB PO PRN (06:24)
[2025-03-01] MEDS: LEVOTHYROXINE 50 MCG TAB PO SCH (06:24)
--- NOTE | 2025-03-01 07:10 | PN ---
PROGRESS NOTE CHIEF COMPLAINT: Nausea, vomiting, diarrhea and dehydration. PHYSICAL EXAMINATION: LUNGS: He has scattered rales in the chest. CARDIAC: Normal. ABDOMEN: Soft, nontender. IMPRESSION: 1. Nausea, vomiting, diarrhea. 2. Dehydration. 3. Clostridium difficile. 4. Cough and bronchitis. 5. Chronic myeloid leukemia. 6. Congestive heart failure. 7. Chronic kidney disease. PLAN: 1. Continue with IV fluids. 2. Antitussive has been ordered. 3. He has been started on vancomycin 250 mg q.i.d. 4. Consult with Oncology because of his elevated white count. 5. We would have his consult with Nephrology. 6. Continue rehydration. MMODL / IJN: [id number] /
[2025-03-01 07:23] LABS: Glucose,Whole Blood 129 mg/dL (70-110)
[2025-03-01] MEDS ORDERED: SODIUM ZIRCONIUM CYCLOSILICATE 10 GM PACKET PO SCH (08:00)
[2025-03-01] MEDS: amLODIPine 10 MG TAB PO SCH (08:14)
[2025-03-01] MEDS: TAMSULOSIN 0.4 MG CAP.ER.24H PO SCH (08:14)
[2025-03-01] MEDS: MAGNESIUM OXIDE 400 MG TAB PO SCH (08:14)
[2025-03-01 08:24] LABS: BUN/Creat Ratio 24.46 Ratio (12.00-20.00); Blood Urea Nitrogen 58.7 mg/dL (9.0-27.0); Calcium 8.1 mg/dL (8.7-10.3); Carbon Dioxide 23.4 mmol/L (21.6-31.8); Chloride 105 mmol/L (96-109); Glucose 127 mg/dL (70-110); Magnesium 1.8 mg/dL (1.5-2.4); Potassium 3.3 mmol/L (3.5-5.5); Sodium 138 mmol/L (135-145)
--- NOTE | 2025-03-01 10:31 | P.PN ---
Subjective Patient is seen in follow-up for chronic kidney disease and hypokalemia. Creatinine 2.4. Potassium 3.3. Diarrhea improved. Has chronic Garcia catheter. Nonoliguric. Vital signs are stable. General: No acute distress. HEENT: Head exam is unremarkable. LUNGS: No audible rhonchi or wheezes. HEART: Rate and Rhythm are regular. ABDOMEN: Obese, nontender. EXTREMITITES: 1+ edema lower extremities. Objective - Vital Signs Vital signs: Vital Signs Temp 98.6 F 03/01/25 07:42 Pulse 106 H 03/01/25 07:42 Resp 17 03/01/25 07:42 BP 118/58 03/01/25 07:42 Pulse Ox 94 L 03/01/25 07:42 FiO2 Intake & Output 02/28/25 03/01/25 03/01/25 18:59 06:59 18:59 Output Total 200 300 Balance -200 -300 Output: Urine 200 300 Other: Voiding Method Indwelling Catheter # Bowel Movements 1 - Labs CBC & Chem 7: 02/28/25 05:24 03/01/25 04:49 Labs: Abnormal Lab Results - Last 24 Hours (Table) 02/28/25 02/28/25 02/28/25 Range/Units 12:09 17:22 20:55 Potassium (3.5-5.5) mmol/L BUN (9.0-27.0) mg/dL Creatinine (0.6-1.5) mg/dL Est GFR (CKD-EPI) (>=60) BUN/Creatinine Ratio (12.00-20.00) Ratio Glucose (70-110) mg/dL POC Glucose (mg/dL) 245 H 217 H 138 H (70-110) mg/dL Calcium (8.7-10.3) mg/dL 03/01/25 03/01/25 Range/Units 04:49 07:19 Potassium 3.3 L (3.5-5.5) mmol/L BUN 58.7 H (9.0-27.0) mg/dL Creatinine 2.4 H (0.6-1.5) mg/dL Est GFR (CKD-EPI) 27 L (>=60) BUN/Creatinine Ratio 24.46 H (12.00-20.00) Ratio Glucose 127 H (70-110) mg/dL POC Glucose (mg/dL) 129 H (70-110) mg/dL Calcium 8.1 L (8.7-10.3) mg/dL Microbiology - Last 24 Hours (Table) 02/27/25 22:05 Urine Culture - Preliminary Urine,Voided Gram Neg Bacilli Assessment and Plan Plan: Assessment: 1. Chronic kidney disease stage IV secondary to diabetic kidney disease and cardiorenal syndrome with baseline creatinine 2-2.5. GFR at baseline. 2. Hypokalemia from diuresis. Magnesium normal. Being replaced. 3. Diabetes mellitus. 4. C. difficile colitis on oral vancomycin. 5. Hypertension with chronic kidney disease. Stable. 6. History of CML maintained on Gleevec. Plan: Maintain Lasix. On potassium supplementation. Avoid nephrotoxins. Continue to monitor renal function and urine output. Patient has a chronic Garcia catheter and follows with urology outpatient. Catheter was exchanged February 27, 2025 in the ER.
[2025-03-01 12:38] LABS: Glucose,Whole Blood 152 mg/dL (70-110)
--- NOTE | 2025-03-01 13:19 | PN ---
PROGRESS NOTE DATE OF SERVICE: 03/01/2025 CHIEF COMPLAINT: 1. FUO. 2. Nausea, vomiting, and diarrhea. 3. Clostridium difficile colitis. 4. Diabetes. 5. CHF. 6. CML. 7. Renal failure. HISTORY OF PRESENT ILLNESS: This gentleman is feeling a little bit better. He feels a little bit stronger. Potassium is still low at 3.4. PHYSICAL EXAMINATION: CHEST: Clear. CARDIAC: Exam is normal. ABDOMEN: Soft and nontender. EXTREMITIES: Normal. IMPRESSION: 1. Fever of unknown origin. 2. Intractable nausea, vomiting, and diarrhea. 3. Clostridium difficile. 4. Congestive heart failure. 5. Type 2 diabetes. 6. Chronic myelogenous leukemia. 7. Chronic kidney disease. PLAN: 1. Continue with IV fluids. 2. Nephrology consult. 3. PT and OT. HEBERT / ETHEL: [id number] /
[2025-03-01] MEDS: NYSTATIN 100,000 UNIT/GM POWD 15 GM TOPICAL SCH (14:48)
[2025-03-01 17:05] LABS: Glucose,Whole Blood 201 mg/dL (70-110)
[2025-03-01 20:37] LABS: Glucose,Whole Blood 214 mg/dL (70-110)
[2025-03-01 21:19] LABS: Magnesium 1.9 mg/dL (1.6-2.3); Potassium 3.7 mmol/L (3.5-5.1)
[2025-03-01] MEDS: DILTIAZEM 125 MG in DEXTROSE 5% IN WATER 100 ML IV SCH (21:29)
[2025-03-01] MEDS: DILTIAZEM 5 MG/ML 5 ML VIAL IVP STA (21:31)
[2025-03-02 06:13] LABS: Glucose,Whole Blood 195 mg/dL (70-110)
[2025-03-02 09:38] LABS: African American GFR (CKD) 24 (>60 ml/min/1.73 sqM); Anion Gap 8 mmol/L; Blood Urea Nitrogen 75 mg/dL (9-20); Calcium 8.2 mg/dL (8.4-10.2); Carbon Dioxide 23 mmol/L (22-30); Chloride 104 mmol/L (98-107); Glucose 150 mg/dL (74-99); Non-African American GFR(CKD) 21 (>60 ml/min/1.73 sqM); Potassium 4.1 mmol/L (3.5-5.1); Sodium 135 mmol/L (137-145)
[2025-03-02 11:11] LABS: Glucose,Whole Blood 154 mg/dL (70-110)
--- NOTE | 2025-03-02 11:43 | P.PN ---
Subjective Patient is seen for follow-up for chronic kidney disease and acute kidney injury. Blood pressure is slightly on the lower side. Poor oral intake Urine output documented at 500 mL for 24 hours Maintained on oral Lasix Serum creatinine 2.8 today Objective - Vital Signs Vital signs: Vital Signs Temp 98.8 F 03/02/25 07:25 Pulse 100 03/02/25 07:25 Resp 20 03/02/25 07:25 BP 145/64 03/02/25 07:25 Pulse Ox 96 03/02/25 07:25 FiO2 Intake & Output 03/01/25 03/02/25 03/02/25 18:59 06:59 18:59 Intake Total 540 Output Total 300 150 Balance 240 -150 Intake: Oral 540 Output: Urine 300 150 Other: Voiding Method Indwelling Catheter Indwelling Catheter Indwelling Catheter # Bowel Movements 4 1 - Exam Patient is awake, comfortable, lethargic Examination of the heart S1 and S2 Examination of the lungs bilateral breath sounds are heard Abdomen is soft nontender Examination of lower extremity shows no significant edema [employer] exam grossly intact - Labs CBC & Chem 7: 02/28/25 05:24 03/02/25 09:10 Labs: Abnormal Lab Results - Last 24 Hours (Table) 03/01/25 03/01/25 03/01/25 Range/Units 12:32 17:03 20:28 Sodium 134 L (137-145) mmol/L BUN (9-20) mg/dL Creatinine (0.66-1.25) mg/dL Glucose (74-99) mg/dL POC Glucose (mg/dL) 152 H 201 H (70-110) mg/dL Calcium (8.4-10.2) mg/dL 03/01/25 03/02/25 03/02/25 Range/Units 20:31 06:12 09:10 Sodium 135 L (137-145) mmol/L BUN 75 H (9-20) mg/dL Creatinine 2.81 H (0.66-1.25) mg/dL Glucose 150 H (74-99) mg/dL POC Glucose (mg/dL) 214 H 195 H (70-110) mg/dL Calcium 8.2 L (8.4-10.2) mg/dL 03/02/25 Range/Units 11:07 Sodium (137-145) mmol/L BUN (9-20) mg/dL Creatinine (0.66-1.25) mg/dL Glucose (74-99) mg/dL POC Glucose (mg/dL) 154 H (70-110) mg/dL Calcium (8.4-10.2) mg/dL Assessment and Plan Assessment: 1. Chronic kidney disease stage IV secondary to diabetic kidney disease and cardiorenal syndrome with baseline creatinine 2-2.5. GFR at baseline. 2. Hypokalemia from diuresis. Magnesium normal. Being replaced. 3. Diabetes mellitus. 4. C. difficile colitis on oral vancomycin. 5. Hypertension with chronic kidney disease. Stable. 6. History of CML maintained on Gleevec. Plan: SANDRA Rodríguez Consider gentle IV hydration if renal function worse tomorrow. Continue with Garcia catheter which was exchanged on 02/27/2025
[2025-03-02] MEDS: SODIUM CHLORIDE 0.9% 500 ML 500 ML IV ONE (12:21)
[2025-03-02] MEDS ORDERED: ALBUTEROL NEBULIZED 2.5 MG/3 ML INHALATION PRN (14:23)
--- NOTE | 2025-03-02 15:52 | XR ---
EXAMINATION TYPE: XR chest 1V portable DATE OF EXAM: 03/02/2025 3:04 PM COMPARISON: 02/27/2025. CLINICAL INDICATION: Male, 74 years old with history of Shortness of breath; H TECHNIQUE: XR chest 1V portable Frontal view of the chest. FINDINGS: Lungs/Pleura: There is no evidence of pleural effusion, focal consolidation, or pneumothorax. Pulmonary vascularity: Unremarkable. Heart/mediastinum: Cardiomediastinal silhouette is unremarkable. Musculoskeletal: No acute osseous pathology. Other findings: None IMPRESSION: Low lung volumes with a generalized hazy appearance which could represent atelectasis versus pulmonar y edema correlate with serum BNP. [facility], , 03/02/2025 3:50 PM
[2025-03-02 16:23] LABS: Glucose,Whole Blood 181 mg/dL (70-110)
[2025-03-02] MEDS: traMADol 50 MG TAB PO PRN (19:50)
[2025-03-02] MEDS: SODIUM CHLORIDE 0.9% 1,000 ML IV SCH (19:51)
[2025-03-02 19:58] LABS: Glucose,Whole Blood 162 mg/dL (70-110)
[2025-03-03 06:24] LABS: Glucose,Whole Blood 203 mg/dL (70-110)
[2025-03-03] MEDS: FUROSEMIDE 10 MG/ML 10 ML VIAL IV STA ×2 (09:27→21:33)
--- NOTE | 2025-03-03 10:11 | P.PN ---
Subjective Patient is seen for follow-up for chronic kidney disease and acute kidney injury. Blood pressure is slightly on the lower side. Poor oral intake Patient has had poor urine output. Urine output documented at 150 mL for 24 hours Status post IV fluid bolus yesterday and started on saline at 50 cc an hour last evening. Serum creatinine 2.8 yesterday. Labs are pending from today Patient has been confused on and off. Family present at bedside. Discussed possible renal replacement therapy if no improvement in urine output and they are agreeable. Objective - Vital Signs Vital signs: Vital Signs Temp 97.6 F 03/03/25 08:50 Pulse 94 03/03/25 08:50 Resp 22 03/03/25 08:55 BP 110/53 03/03/25 08:50 Pulse Ox 94 L 03/03/25 08:55 FiO2 Intake & Output 03/02/25 03/03/25 03/03/25 18:59 06:59 18:59 Intake Total 267.583 Output Total 100 50 Balance 167.583 -50 Intake: Intake, IV Titration 87.583 Amount Diltiazem 125 mg In 87.583 Dextrose 5% in Water 100 ml @ 5 MG/HR 5 mls/hr IV .Q24H [facility], [facility]–1983 Rx#:[id number] Oral 180 Output: Urine 100 50 Other: Voiding Method Indwelling Catheter Indwelling Catheter Indwelling Catheter # Bowel Movements 0 2 - Exam Patient is awake, comfortable, lethargic, confused on and off Examination of the heart S1 and S2 Examination of the lungs bilateral breath sounds are heard Abdomen is soft nontender Examination of lower extremity shows no significant edema [employer] 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 Chronic kidney disease stage IV secondary to diabetic kidney disease and cardiorenal syndrome with baseline creatinine 2-2.5. GFR at baseline. 2. Hypokalemia from diuresis. Magnesium normal. Being replaced. 3. Diabetes mellitus. 4. C. difficile colitis on oral vancomycin. 5. Hypertension with chronic kidney disease. Stable. 6. History of CML maintained on Gleevec. 7. Acute kidney injury, ATN, oliguric, secondary to underlying infection. UA shows 1+ protein and WBCs. No obstruction on CT of the abdomen and pelvis. Discussed renal replacement therapy if no improvement in urine output/renal f unction. Plan: Continue with saline at 50 cc an hour IV Lasix x 1 to help with urine output If no improvement in urine output/renal function, we will proceed with renal replacement therapy in a.m. Continue with Garcia catheter which was exchanged on 02/27/2025
[2025-03-03 11:10] LABS: African American GFR (CKD) 17 (>60 ml/min/1.73 sqM); Anion Gap 10 mmol/L; Blood Urea Nitrogen 80 mg/dL (9-20); Calcium 8.4 mg/dL (8.4-10.2); Carbon Dioxide 21 mmol/L (22-30); Chloride 105 mmol/L (98-107); Glucose 139 mg/dL (74-99); Non-African American GFR(CKD) 15 (>60 ml/min/1.73 sqM); Potassium 4.7 mmol/L (3.5-5.1); Sodium 136 mmol/L (137-145)
[2025-03-03 11:27] LABS: Glucose,Whole Blood 149 mg/dL (70-110)
[2025-03-03 16:22] LABS: Glucose,Whole Blood 169 mg/dL (70-110)
[2025-03-03 20:22] LABS: Glucose,Whole Blood 153 mg/dL (70-110)
[2025-03-04] MEDS: LORazepam 1 MG/0.5 ML VIAL IV PRN (03:31)
[2025-03-04 05:59] LABS: Glucose,Whole Blood 184 mg/dL (70-110)
[2025-03-04] MEDS: ERGOCALCIFEROL 1,250 MCG (50,000 IU) CAPSULE PO SCH (08:13)
--- NOTE | 2025-03-04 09:59 | P.CRDCN ---
History of Present Illness History of present illness: HISTORY OF PRESENT ILLNESS: This is a 74-year-old male with a past medical history significant for diabetes, hypertension, hyperlipidemia, intracranial bleeding with paraplegia, obstructive sleep apnea, chronic kidney disease, and CML. Patient follows in the office with Dr. Martino. We have been asked to see the patient in consultation for atrial fibrillation. Patient examined at the bedside. Patient's family is at the bedside. Patient is lethargic at the time of examination unable to provide any history. Patient is admitted to the hospital secondary to C. difficile and acute on chronic kidney disease. Patient did go into A-fib with RVR. He was started on IV Cardizem. He has subsequently converted to sinus mechanism and is maintaining sinus mechanism this morning. DIAGNOSTICS: - EKG reveals A-fib with RVR. - Chest xray low lung volumes with a generalized hazy appearance which could represent atelectasis versus pulmonary edema. - Laboratory data: WBC 27.41. Hemoglobin 11.0. Platelet count 276. Sodium 136. Potassium 4.7. BUN 80. Creatinine 3.77. Troponin negative x 1. C. difficile positive. - Current home cardiac medications include amlodipine 10 mg daily, hydralazine 50 mg twice a day, Lasix 40 mg twice a day. - Most recent echocardiogram obtained in March 2024 revealed ejection fraction 55 to 60%, mild concentric LVH, mild TR - Patient underwent Lexiscan stress test in November 2022 which was negative for ischemia REVIEW OF SYSTEMS: At the time of my exam: Unable to obtain review of systems secondary to altered mental status PHYSICAL EXAM: VITAL SIGNS: Reviewed. GENERAL: Well-developed in no acute distress. HEENT: Head is normocephalic. Pupils are equal, round. Sclerae anicteric. Mucous membranes of the mouth are moist. Neck supple. No JVD or thyromegaly LUNGS: Respirations even and unlabored. Lungs essentially clear to auscultation bilaterally. HEART: Regular rate and rhythm. S1 and S2 heard. ABDOMEN: Soft. Nondistended. Nontender. EXTREMITIES: Normal range of motion. No clubbing or cyanosis. Peripheral pulses intact. No lower extremity edema NEUROLOGIC: Lethargic. ASSESSMENT: Acute on chronic kidney disease Acute C. difficile New onset atrial fibrillation with RVR, currently maintaining sinus mechanism Hypertension Hyperlipidemia Diabetes History of intracranial bleeding with paraplegia Obstructive sleep apnea History of CML PLAN: Obtain CT of the brain without contrast due to altered mental status. Possibility of CVA versus metabolic encephalopathy due to worsening kidney function No anticoagulation at this time due to history of intracranial hemorrhage Patient is lethargic and unable to take any medications orally May continue IV Cardizem for rate control Prognosis appears poor Further recommendations pending patient course Nurse practitioner note has been reviewed by physician. Signing provider agrees with the documented findings, assessment, and plan of care documented by PROGRAM ATTENDANT as a scribe. 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; IDDM type II, pt states he occasionally has hypoglycemia during middle of night, arthritis bilateral hands and occasionally in bilateral knees, gout R foot, WILLAM with CPAP use, chronic kidney disease stage 4 with baseline creatinine near 2 due to diabetic kidney disease and chronic interstitial nephritis, anemia History of Any Multi-Drug Resistant Organisms: ESBL Date of last positivie culture/infection: 11/15/24 MDRO Source:: urine Past Surgical History: Back Surgery, Cholecystectomy, Hernia Repair Additional Past Surgical History / Comment(s): 09/2019 bone marrow biopsy, incisional hernia, colonoscopy with benign polyps. Right cataract removal with IOL implant. PARATHYROIDECTOMY - July 2023 Past Anesthesia/Blood Transfusion Reactions: No Reported Reaction Past Psychological History: No Psychological Hx Reported Smoking Status: Never smoker Past Alcohol Use History: None Reported Past Drug Use History: None Reported - Past Family History Father Family Medical History: Diabetes Mellitus Additional Family Medical History / Comment(s): Father is 97 yrs old. Mother Family Medical History: Dementia Additional Family Medical History / Comment(s): Mother of dementia at the age of 85yrs. Medications and Allergies Home Medications Medication Instructions Recorded Confirmed Type Famotidine 20 mg PO BID 04/12/23 02/28/25 History Acetaminophen Tab [Tylenol] 650 mg PO Q6H PRN MDD 3gm 03/26/24 02/28/25 History Imatinib Mesylate 300 mg PO HS 03/26/24 02/28/25 History Magnesium Oxide [Magox 400] 400 mg PO DAILY 03/26/24 02/28/25 History Tamsulosin [Flomax] 0.4 mg PO DAILY 03/26/24 02/28/25 History Baclofen 5 mg PO Q8H PRN 04/26/24 02/28/25 History Insulin Glargine,Hum.rec.anlog 20 units PO HS 05/21/24 02/28/25 History [Lantus Solostar Pen] Ergocalciferol (Vitamin D2) 1,250 mcg PO MO 11/15/24 02/28/25 History [Drisdol (50,000 Iu)] Insulin Aspart (Niacinamide) See Protocol SQ ACHS 11/15/24 02/28/25 History [Fiasp 100 Unit/ml Flextouch Pen] L.acidoph,Paracasei, B.lactis 1 cap PO BID 11/15/24 02/28/25 History [Probiotic] amLODIPine [Norvasc] 10 mg PO DAILY 11/15/24 02/28/25 History Ondansetron [Zofran] 4 mg PO Q6H PRN 12/20/24 02/28/25 History Sucralfate [Carafate] 1 gm PO ACHS 12/20/24 02/28/25 History Sodium Zirconium Cyclosilicate 10 gm PO DAILY 01/06/25 02/28/25 History [Lokelma] Insulin Aspart (Niacinamide) 4 units SQ TID-W/MEALS 01/25/25 02/28/25 History [Fiasp 100 Unit/ml Flextouch Pen] Levothyroxine Sodium [Synthroid] 50 mcg PO DAILY 01/25/25 02/28/25 History hydrALAZINE HCL 50 mg PO BID 01/25/25 02/28/25 History Aranesp 60mcg/Ml 60 mcg SQ FR 02/28/25 02/28/25 History Furosemide [Lasix] 40 mg PO BID 02/28/25 02/28/25 History Magic Cup 1 dose PO BID 02/28/25 02/28/25 History Potassium Chloride ER [K-Dur 20] 20 - 40 meq PO DIRECTED 02/28/25 02/28/25 History Allergies Allergy/AdvReac Type Severity Reaction Status Date / Time TACOS Inhibitors Allergy Unknown Verified 02/28/25 11:04 codeine Allergy Unknown Verified 02/28/25 11:04 lisinopril Allergy Unknown Verified 02/28/25 11:04 oxycodone Allergy Unknown Verified 02/28/25 11:04 sulfamethoxazole Allergy Unknown Verified 02/28/25 11:04 [From Bactrim] trimethoprim [From Bactrim] Allergy Unknown Verified 02/28/25 11:04 TIDE LAUNDRY SOAP Allergy Severe Rash/Hives Uncoded 02/28/25 11:04 Physical Exam Vitals: Vital Signs Temp Pulse Resp BP Pulse Ox 03/04/25 03:36 78 20 137/54 94 L 03/03/25 23:40 91 22 123/54 91 L 03/03/25 19:50 97.6 F 90 24 142/57 98 03/03/25 18:56 98.5 F 94 24 143/66 93 L 03/03/25 15:11 98.0 F 89 20 153/69 95 03/03/25 13:23 84 03/03/25 11:44 98.1 F 84 20 143/64 94 L 03/03/25 11:43 94 L 03/03/25 08:55 22 94 L 03/03/25 08:50 97.6 F 94 22 110/53 89 L Intake and Output 03/03/25 03/04/25 03/04/25 22:59 06:59 14:59 Output Total 125 Balance -125 Output: Urine 125 Other: Voiding Method Indwelling Catheter Indwelling Catheter # Bowel Movements 1 Results 02/28/25 05:24 03/03/25 09:36 Comprehensive Metabolic Panel 03/03/25 Range/Units 09:36 Sodium 136 L (137-145) mmol/L Potassium 4.7 (3.5-5.1) mmol/L Chloride 105 (98-107) mmol/L Carbon Dioxide 21 L (22-30) mmol/L BUN 80 H (9-20) mg/dL Creatinine 3.77 H (0.66-1.25) mg/dL Glucose 139 H (74-99) mg/dL Calcium 8.4 (8.4-10.2) mg/dL Current Medications Generic Name Dose Route Start Last Admin Trade Name Freq PRN Reason Stop Dose Admin Acetaminophen 650 mg 02/27/25 23:15 03/02/25 00:33 Acetaminophen Tab 325 Mg Tab PO 650 mg Q6HR PRN Administration Mild Pain or Fever > 100.5 Albuterol Sulfate 2.5 mg 03/02/25 14:23 Albuterol Nebulized 2.5 Mg/3 Ml INHALATION RT-QID PRN Shortness Of Breath Or Wheezing Benzocaine/Menthol 1 each 03/01/25 00:04 03/01/25 21:38 Benzocaine/Menthol Lozeng 1 Each Lozenge MUCOUS MEM 1 each Q4HR PRN Administration Cough Benzonatate 100 mg 02/28/25 02:57 03/01/25 17:33 Benzonatate 100 Mg Cap PO 100 mg TID PRN Administration Cough Ergocalciferol 1,250 mcg 03/04/25 08:00 Ergocalciferol 1,250 Mcg (50,000 Iu) Capsule PO MO@0800 [facility] Famotidine 20 mg 02/28/25 21:00 03/03/25 20:03 Famotidine 20 Mg Tab PO Not Given HS [facility] Hydralazine HCl 50 mg 02/28/25 20:00 03/03/25 20:03 Hydralazine Hcl 50 Mg Tab PO Not Given BID@08,1999 [facility] Diltiazem HCl 125 mg/ Dextrose 125 mls @ 5 mls/hr 03/01/25 21:20 03/03/25 12:34 /Water IV 5 mg/hr .Q24H SAM 5 mls/hr Administration Protocol 5 MG/HR Insulin Glargine 20 unit 02/28/25 21:00 03/04/25 00:35 Insulin Glargine (Lantus) 100 Unit/Ml Syr SQ Not Given HS [facility] Insulin Human Lispro 4 unit 02/28/25 12:00 03/04/25 06:52 Insulin Lispro (Humalog) 100 Unit/Ml 10 Ml Vl SQ Not Given TID-W/MEALS@ [facility] Levothyroxine Sodium 50 mcg 03/01/25 06:00 03/04/25 06:52 Levothyroxine 50 Mcg Tab PO Not Given DAILY@0600 [facility] Lorazepam 2 mg 03/03/25 19:09 03/04/25 03:31 Lorazepam 1 Mg/0.5 Ml Vial IV 1 mg Q6HR PRN Administration Agitation Magnesium Oxide 400 mg 03/01/25 08:00 03/03/25 09:07 Magnesium Oxide 400 Mg Tab PO 400 mg DAILY@0800 [facility] Administration Miscellaneous Information 1 each 02/27/25 21:39 Potassium Replacement Protocol 1 Each Misc MISCELLANE DAILY PRN Per Protocol Protocol Morphine Sulfate 1 mg 03/03/25 19:09 Morphine Sulfate 2 Mg/Ml Syringe IVP Q1HR PRN Pain Naloxone HCl 0.2 mg 02/27/25 23:15 Naloxone 0.4 Mg/Ml 1 Ml Vial IV Q2M PRN Opioid Reversal Imatinib Mesylate 3 each 02/28/25 21:00 03/03/25 20:03 100 Mg Tablet PO Not Given HS [facility] Nystatin 1 applic 03/01/25 13:45 03/03/25 21:34 Nystatin 100,000 Unit/Gm Powd 15 Gm TOPICAL 1 applic BID SAM Administration Protocol Ondansetron HCl 4 mg 02/28/25 02:57 03/02/25 00:33 Ondansetron 4 Mg/2 Ml Vial IVP 4 mg Q6HR PRN Administration Nausea And Vomiting Ondansetron HCl 4 mg 02/28/25 10:30 Ondansetron Odt 4 Mg Tab PO Q6H PRN Nausea And Vomiting Petrolatum 1 applic 02/28/25 23:06 Zinc Oxide Paste (Z-Guard) 1 Applic TOPICAL Q2HR PRN Wound Healing Protocol Potassium Chloride 30 meq 02/28/25 10:45 03/03/25 20:03 Potassium Chloride Er 10 Meq Tab.Er.Prt PO Not Given BID [facility] Sucralfate 1 gm 02/28/25 11:00 03/04/25 06:52 Sucralfate 1 Gm Tab PO Not Given ACHS@06,11,16,20 [facility] Tamsulosin HCl 0.4 mg 03/01/25 08:00 03/03/25 09:07 Tamsulosin 0.4 Mg Cap.Er.24h PO 0.4 mg DAILY@0800 [facility] Administration Tramadol HCl 50 mg 03/02/25 14:22 03/03/25 11:24 Tramadol 50 Mg Tab PO 50 mg Q8HR PRN Administration Pain Vancomycin HCl 250 mg 02/28/25 21:51 03/04/25 00:36 Vancomycin 125 Mg Capsule PO Not Given QID [facility] Protocol Intake and Output 03/03/25 03/04/25 03/04/25 22:59 06:59 14:59 Output Total 125 Balance -125 Output: Urine 125 Other: Voiding Method Indwelling Catheter Indwelling Catheter # Bowel Movements 1 02/28/25 05:24 03/03/25 09:36
--- NOTE | 2025-03-04 11:10 | CT ---
EXAMINATION TYPE: CT brain wo con DATE OF EXAM: 03/04/2025 10:50 AM COMPARISON: 05/21/2024 CLINICAL INDICATION: Male, 74 years old with history of AMS, hx of CVA, confusion TECHNIQUE: Examination was done in axial plane without intravenous contrast. Coronal and sagittal r econstructions performed. CT DLP: 1241.4 mGycm, Automated exposure control for dose reduction was used. FINDINGS: There is no evidence of acute intracranial hemorrhage, acute ischemic changes, mass, mass-effect, or extra-axial fluid collection. There is no effacement of cerebral sulci or basal subarachnoid cister ns. There is no hydrocephalus. There is no midline shift. Zaragoza-white matter distinction is preserv ed. There are moderate patchy white matter hypodensities in both cerebral hemispheres along with old lacu soniya infarcts in the basal ganglia. Prominent atherosclerotic calcifications in the carotid siphons. P rominent dental amalgam artifacts cause some limitation in assessment of the posterior cranial fossa. Rightward nasal septal deviation. Paranasal sinuses are well pneumatized. Partial opacification of th e right mastoid air cells. Orbits and globes are intact. IMPRESSION: 1. Moderate patchy burden of chronic small vessel ischemic disease. Old lacunar infarcts in the basal ganglia. If concern for subtle acute ischemia, follow-up MRI. No acute intracranial abnormality seen . 2. Partial opacification right mastoid air cells. Correlate for any mastoid pain to exclude mastoidit is. [facility], , 03/04/2025 11:08 AM
[2025-03-04 11:29] LABS: Glucose,Whole Blood 156 mg/dL (70-110)
--- NOTE | 2025-03-04 12:12 | P.PN ---
Subjective Patient is seen for follow-up for chronic kidney disease and acute kidney injury. Blood pressure is slightly on the lower side yesterday. Poor oral intake Patient has had poor urine output. Urine output documented at 125 mL for 24 hours IV fluids were discontinued yesterday. No response to IV Lasix yesterday. is present at bedside and I discussed options of proceeding with comfort care measures versus aggressive care including dialysis and at this time she is leaning towards palliative care/comfort care. Objective - Vital Signs Vital signs: Vital Signs Temp 97.6 F 03/03/25 19:50 Pulse 78 03/04/25 03:36 Resp 20 03/04/25 03:36 BP 137/54 03/04/25 03:36 Pulse Ox 95 03/04/25 10:05 FiO2 Intake & Output 03/03/25 03/04/25 03/04/25 18:59 06:59 18:59 Intake Total 107.833 Output Total 125 Balance -17.167 Intake: Intake, IV Titration 107.833 Amount Diltiazem 125 mg In 107.833 Dextrose 5% in Water 100 ml @ 5 MG/HR 5 mls/hr IV .Q24H [facility] Rx#:[id number] Output: Urine 125 Other: Voiding Method Indwelling Catheter Indwelling Catheter # Bowel Movements 1 - Exam Patient is sleeping, comfortable, lethargic Examination of the heart S1 and S2 Examination of the lungs bilateral breath sounds are heard, decreased breath sounds at the bases Abdomen is soft nontender Examination of lower extremity shows no significant edema DIRECTOR OF BRAND MARKETING exam grossly intact - Labs CBC & Chem 7: 02/28/25 05:24 03/03/25 09:36 Labs: Abnormal Lab Results - Last 24 Hours (Table) 03/03/25 03/03/25 03/04/25 Range/Units 16:20 20:19 05:58 POC Glucose (mg/dL) 169 H 153 H 184 H (70-110) mg/dL 03/04/25 Range/Units 11:27 POC Glucose (mg/dL) 156 H (70-110) mg/dL Assessment and Plan Assessment: 1. Chronic kidney disease stage IV secondary to diabetic kidney disease and cardiorenal syndrome with baseline creatinine 2-2.5. GFR at baseline. 2. Hypokalemia from diuresis. Magnesium normal. Being replaced. 3. Diabetes mellitus. 4. C. difficile colitis on oral vancomycin. 5. Hypertension with chronic kidney disease. Stable. 6. History of CML maintained on Gleevec. 7. Acute kidney injury, ATN, oliguric, secondary to underlying infection. UA shows 1+ protein and WBCs. No obstruction on CT of the abdomen and pelvis. No plans for renal replacement therapy based on discussion today with patient's . Plan: No plans for renal replacement therapy as per discussion with patient's today. She is leaning towards palliative/comfort care measures. Continue off of IV fluids.
--- NOTE | 2025-03-04 23:28 | PN ---
PROGRESS NOTE DATE OF SERVICE: 03/03/2025 CHIEF COMPLAINT: Electrolytes imbalance, stage 5 CKD, CHF, and CML. HISTORY OF PRESENT ILLNESS: This gentleman is deteriorating. He is more lethargic and delirious. Nephrology is planning dialysis if he does not improve. He is making very little urine output. PHYSICAL EXAMINATION: GENERAL: He is lethargic and delirious. SKIN: Dry. CHEST: Clear. CARDIAC: Sounds like sinus rhythm. ABDOMEN: Soft and nontender. IMPRESSION: 1. Delirium. 2. Stage 5 chronic kidney disease. 3. Diabetes. 4. Chronic myeloid leukemia. PLAN: Labs are being repeated. Blood cultures will be ordered. I had a discussion with the indicated that she is becoming quite realistic about her 's situation and prognosis. We await further recommendations from Nephrology tomorrow. MMODL / IJN: [id number] /
--- NOTE | 2025-03-05 02:19 | PN ---
PROGRESS NOTE DATE OF SERVICE: 03/04/2025 CHIEF COMPLAINT: Mental status changes and delirium. HISTORY OF PRESENT ILLNESS: This gentleman is actually a little bit more alert today than he was yesterday. He will be seen by Nephrology today and decision will be made regarding whether or not he is a candidate for dialysis. PHYSICAL EXAMINATION: LUNGS: Breath sounds are shallow on both sides. There are occasional rales. CARDIAC: Unchanged. ABDOMEN: Soft and nontender. GENERAL: He is a little bit more alert than yesterday. IMPRESSION: 1. Delirium. 2. Mental status changes. 3. Renal failure. 4. Cardiorenal syndrome. 5. Diabetes. 6. Chronic myeloid leukemia. PLAN: Await Nephrology's decision regarding possible dialysis. MMODL / IJN: [id number] /
[2025-03-05 04:31] VITALS: BP 98/54; TEMP 97.9
[2025-03-05] MEDS: MORPHINE SULFATE 2 MG/ML SYRINGE IVP PRN (08:31)
[2025-03-05] MEDS: LORazepam 1 MG/0.5 ML VIAL IV PRN (09:59)
--- NOTE | 2025-03-05 10:54 | P.PN ---
Subjective HISTORY OF PRESENT ILLNESS: This is a 74-year-old male with a past medical history significant for diabetes, hypertension, hyperlipidemia, intracranial bleeding with paraplegia, obstructive sleep apnea, chronic kidney disease, and CML. Patient follows in the office with Dr. Martino. We have been asked to see the patient in consultation for atrial fibrillation. Patient examined at the bedside. Patient's family is at the bedside. Patient is lethargic at the time of examination unable to provide any history. Patient is admitted to the hospital secondary to C. difficile and acute on chronic kidney disease. Patient did go into A-fib with RVR. He was started on IV Cardizem. He has subsequently converted to sinus mechanism and is maintaining sinus mechanism this morning. DIAGNOSTICS: - EKG reveals A-fib with RVR. - Chest xray low lung volumes with a generalized hazy appearance which could represent atelectasis versus pulmonary edema. - Laboratory data: WBC 27.41. Hemoglobin 11.0. Platelet count 276. Sodium 136. Potassium 4.7. BUN 80. Creatinine 3.77. Troponin negative x 1. C. difficile positive. - Current home cardiac medications include amlodipine 10 mg daily, hydralazine 50 mg twice a day, Lasix 40 mg twice a day. - Most recent echocardiogram obtained in March 2024 revealed ejection fraction 55 to 60%, mild concentric LVH, mild TR - Patient underwent Lexiscan stress test in November 2022 which was negative for ischemia 03/05/2025 Patient examined this morning at bedside. There is no family present. Patient is lethargic at the time of examination and unable to answer any questions. Cardizem drip remains off. PHYSICAL EXAM: VITAL SIGNS: Reviewed. GENERAL: Well-developed in no acute distress. HEENT: Head is normocephalic. Pupils are equal, round. Sclerae anicteric. Mucous membranes of the mouth are moist. Neck supple. No JVD or thyromegaly LUNGS: Respirations even and unlabored. Lungs essentially clear to auscultation bilaterally. HEART: Regular rate and rhythm. S1 and S2 heard. ABDOMEN: Soft. Nondistended. Nontender. EXTREMITIES: Normal range of motion. No clubbing or cyanosis. Peripheral puls es intact. No lower extremity edema NEUROLOGIC: Lethargic. ASSESSMENT: Acute on chronic kidney disease Acute C. difficile New onset atrial fibrillation with RVR, currently maintaining sinus mechanism Hypertension Hyperlipidemia Diabetes History of intracranial bleeding with paraplegia Obstructive sleep apnea History of CML PLAN: No anticoagulation at this time due to history of intracranial hemorrhage Patient is lethargic and unable to take any medications orally Discontinue IV Cardizem Prognosis appears poor. Per nursing, patient likely going comfort care/hospice No further inpatient recommendations from a cardiac standpoint We will sign off. Please reconsult if needed. Nurse practitioner note has been reviewed by physician. Signing provider agrees with the documented findings, assessment, and plan of care documented by CYBER SYSTEMS ENGINEER as a scribe. Objective - Vital Signs Vital signs: Vital Signs Temp 97.9 F 03/05/25 04:00 Pulse 110 H 03/05/25 08:20 Resp 26 H 03/05/25 08:20 BP 98/54 03/05/25 04:00 Pulse Ox 92 L 03/05/25 04:00 FiO2 Intake & Output 03/04/25 03/05/25 03/05/25 18:59 06:59 18:59 Intake Total 0 Output Total 100 Balance 0 -100 Intake: Oral 0 Output: Urine 100 Other: Voiding Method Indwelling Catheter Indwelling Catheter Indwelling Catheter - Labs CBC & Chem 7: 02/28/25 05:24 03/03/25 09:36 Labs: Abnormal Lab Results - Last 24 Hours (Table) 03/04/25 Range/Units 11:27 POC Glucose (mg/dL) 156 H (70-110) mg/dL Microbiology - Last 24 Hours (Table) 03/03/25 16:07 Blood Culture - Preliminary Blood
[2025-03-05 17:22] VITALS: PULSE 96; RESP 18
--- NOTE | 2025-03-06 00:05 | P.PN ---
Subjective Patient is seen for follow-up for chronic kidney disease and acute kidney injury. Family has decided to proceed with comfort care measures Patient is comfortable Objective - Vital Signs Vital signs: Vital Signs Temp 97.9 F 03/05/25 04:00 Pulse 96 03/05/25 16:00 Resp 18 03/05/25 16:00 BP 98/54 03/05/25 04:00 Pulse Ox 92 L 03/05/25 04:00 FiO2 Intake & Output 03/05/25 03/05/25 03/06/25 06:59 18:59 06:59 Output Total 100 Balance -100 Output: Urine 100 Other: Voiding Method Indwelling Catheter Indwelling Catheter - Exam Patient is sleeping, comfortable, not arousable Examination of lower extremity shows 1+ edema - Labs CBC & Chem 7: 02/28/25 05:24 03/03/25 09:36 Labs: Microbiology - Last 24 Hours (Table) 03/03/25 16:07 Blood Culture - Preliminary Blood Assessment and Plan Assessment: 1. Chronic kidney disease stage IV secondary to diabetic kidney disease and cardiorenal syndrome with baseline creatinine 2-2.5. GFR at baseline. 2. Hypokalemia from diuresis. Magnesium normal. Status post replacement 3. Diabetes mellitus. 4. C. difficile colitis on oral vancomycin. 5. Hypertension with chronic kidney disease. Stable. 6. History of CML maintained on Gleevec. 7. Acute kidney injury, ATN, oliguric, secondary to underlying infection. UA shows 1+ protein and WBCs. No obstruction on CT of the abdomen and pelvis. No plans for renal replacement therapy based on discussion with patient's . Plan: No plans for renal replacement therapy as per discussion with patient's . Continue comfort care measures.
--- NOTE | 2025-03-06 14:48 | PN ---
PROGRESS NOTE DATE OF SERVICE: 03/05/2025 CHIEF COMPLAINT: Coma and acute renal failure. HISTORY OF PRESENT ILLNESS: This gentleman is now comatose. is requested that he be given comfort measures only. PHYSICAL EXAMINATION: GENERAL: He is not arousable. LUNGS: He has readily respirations. The breath sounds are heard bilaterally with rhonchi. CARDIAC: Exam is normal. ABDOMEN: Soft. IMPRESSION: 1. Stage 5 chronic kidney disease. 2. Coma. 3. Congestive heart failure. 4. Diabetes. 5. Chronic myelogenous leukemia. PLAN: Comfort measures only. MMODL / IJN: [id number] /
--- NOTE | 2025-03-07 07:45 | DS ---
DISCHARGE SUMMARY CHIEF COMPLAINT: Nausea, vomiting, dehydration and renal failure. HISTORY OF PRESENT ILLNESS AND PHYSICAL EXAMINATION: Details of this man's History and Physical can be found in the initial workup. LABORATORY STUDIES: While he is in the hospital, he had laboratory studies, details of which can be found in laboratory section of his chart. COURSE IN THE HOSPITAL: After admission, he was placed bedrest. Started on intravenous fluids to correct electrolyte imbalance, and hopefully, bring his GFR up. He was seen in consultation by Nephrology. Numbers did not significantly improve. His blood sugars were brought under good control. Doing fairly well, then he went into atrial fibrillation. He was seen by Cardiology. He started to become more lethargic and delirious. He began slowly deteriorated and it was thought that he may require dialysis. However, he began to rapidly decline and Nephrology felt that the benefit was not realistic. Decision was made by the to make him a DO NOT RESUSCITATE. He continues to deteriorate and became comatose and on the . FINAL DIAGNOSES: 1. Chronic renal failure. 2. Acute renal failure. 3. Electrolyte imbalance. 4. Congestive heart failure. 5. Atrial fibrillation. 6. Insulin-dependent diabetes mellitus. 7. Chronic myelogenous leukemia. 8. Morbid obesity. 9. Fracture of the right femur. OPERATIONS: None. CONSULTATIONS: Nephrology, Cardiology, and Oncology. MMODL / IJN: [id number] /
== END 2025-03-05 20:55 | disposition expired | DRG 371 ==
LOC: EC 19:57 → 5NMEDONC 23:16 → 3SCARD 03-01 21:08
PROVIDERS: ADMIT Family Medicine; ATTEND Family Medicine
DX: A04.72 Enterocolitis due to Clostridium difficile, not specified as recurrent (principal); N17.0 Acute kidney failure with tubular necrosis; R40.20 Unspecified coma; I13.2 Hypertensive heart and chronic kidney disease with heart failure and with stage 5 chronic kidney disease, or end stage renal disease; G82.20 Paraplegia, unspecified; I48.91 Unspecified atrial fibrillation; C92.10 Chronic myeloid leukemia, BCR/ABL-positive, not having achieved remission; N18.5 Chronic kidney disease, stage 5; E66.01 Morbid (severe) obesity due to excess calories; E11.22 Type 2 diabetes mellitus with diabetic chronic kidney disease; J45.909 Unspecified asthma, uncomplicated; I50.9 Heart failure, unspecified; E11.65 Type 2 diabetes mellitus with hyperglycemia; Z79.4 Long term (current) use of insulin; Z51.5 Encounter for palliative care; Z66 Do not resuscitate; J40 Bronchitis, not specified as acute or chronic; N30.20 Other chronic cystitis without hematuria; M19.041 Primary osteoarthritis, right hand; M19.042 Primary osteoarthritis, left hand; M10.9 Gout, unspecified; E86.0 Dehydration; E87.6 Hypokalemia; Z68.37 Body mass index [BMI] 37.0-37.9, adult; E78.5 Hyperlipidemia, unspecified; G47.33 Obstructive sleep apnea (adult) (pediatric); Z79.899 Other long term (current) drug therapy; Z79.890 Hormone replacement therapy
CPT/HCPCS: 36415; 51702; 70450; 71045; 71046; 74176; 80048; 80051; 80053; 81001; 83605; 83735; 84132; 84484; 85025; 87040; 87077; 87086; 87186; 87324; 87636; 94760; 96365; 96366; 96368; 99285